=== PATIENT | female | born 1960 | race Two or more races ===

== ENCOUNTER 2024-01-29 14:43 | Outpatient (RCR) | payer BC, SELFPAY | END 2024-02-21 23:59 | disposition home or self-care (01) | LOC: SCTC 14:43 | PROVIDERS: PCP Internal Medicine; Referring Provider Internal Medicine; Visit Provider Internal Medicine Hematology & Oncology | DX: D69.6 Thrombocytopenia, unspecified (principal); D72.819 Decreased white blood cell count, unspecified; R59.0 Localized enlarged lymph nodes; N63.41 Unspecified lump in right breast, subareolar; R92.331 Mammographic heterogeneous density, right breast; K74.60 Unspecified cirrhosis of liver; I82.890 Acute embolism and thrombosis of other specified veins; I85.00 Esophageal varices without bleeding; R18.8 Other ascites; R16.1 Splenomegaly, not elsewhere classified; D73.89 Other diseases of spleen; Z91.199 Patient's noncompliance with other medical treatment and regimen due to unspecified reason | CPT/HCPCS: 99212; G0463 ==

== ENCOUNTER → 2024-02-11 | Outpatient (CLI) | payer BC, SELFPAY ==
--- NOTE | 2024-02-11 13:00 | XR_ITS ---
Examination: Breast ultrasound, unilateral, right complete Date and time of exam: February 11, 2024 1345 hours INDICATIONS: Right breast pain beginning 3 months ago Technique: Real-time powell scale ultrasonographic imaging performed right breast including all 4 quadrants as well as nipple retroareolar and axillary region. Findings: Retroareolar oval mass 3 x 3 mm Axillary lymph node enlarged with mildly irregular margins 2.6 x 2.8 cm IMPRESSION: BI-RADS Category 3: Probably benign findings Recommend 1 additional 6 month right breast sonogram follow-up
== END | disposition home or self-care (01) ==
LOC: CDIM 13:31
PROVIDERS: PCP Internal Medicine; Referring Provider Internal Medicine; Visit Provider Internal Medicine
DX: N64.4 Mastodynia (principal)
CPT/HCPCS: 76641

== ENCOUNTER 2024-02-23 13:03 | Outpatient (RCR) | payer BC, SELFPAY | END 2024-03-23 23:59 | disposition home or self-care (01) | LOC: SCTC 13:03 | PROVIDERS: PCP Internal Medicine; Referring Provider Internal Medicine; Visit Provider Nurse Practitioner Family | DX: N63.41 Unspecified lump in right breast, subareolar (principal); R59.0 Localized enlarged lymph nodes; D69.6 Thrombocytopenia, unspecified; D72.819 Decreased white blood cell count, unspecified | CPT/HCPCS: 99212; G0463 ==

== ENCOUNTER → 2024-02-24 | Outpatient (CLI) | payer BC, SELFPAY ==
--- NOTE | 2024-02-24 11:00 | XR_ITS ---
Examination: Abdomen sonogram, Limited Date and time of exam: February 24, 2024 1132 hours INDICATIONS: Diagnosis cirrhosis and hepatic encephalopathy this week Technique: Real-time powell scale transabdominal sonographic images of the upper abdomen obtained. Findings: Contracted gallbladder Gallbladder wall is thickened 0.8 cm however there is ascites Common bile duct 0.2 cm Pancreatic head 3.1 cm Liver 13.4 cm irregular contour moderate ascites Normal hepatopedal portal venous flow Patent IVC No thrombus in the splenic vein IMPRESSION: Cirrhosis Moderate ascites
--- NOTE | 2024-02-24 11:30 | XR_ITS ---
Examination: Ultrasound spleen TECHNIQUE: Multiple grayscale sonographic images Exam date and time: February 24, 2024 1139 hours INDICATIONS: 15 mm spl[address] lesion on CT abdomen January 18, 2024 FINDINGS: Spleen 17.9 cm Mild free fluid about the spleen No thrombus splenic vein no splenic lesion depicted IMPRESSION: Significant splenomegaly, no splenic lesion noted
== END | disposition home or self-care (01) ==
PROVIDERS: PCP Internal Medicine; Referring Provider Nurse Practitioner Family; Visit Provider Nurse Practitioner Family
DX: R16.1 Splenomegaly, not elsewhere classified (principal); K70.31 Alcoholic cirrhosis of liver with ascites
CPT/HCPCS: 76705

== ENCOUNTER → 2024-05-31 | Outpatient (CLI) | payer OTHER, SELFPAY ==
[2024-05-31 14:43] LABS: Basophils % (Auto) 0 % (0-2.5); Eosinophils % (Auto) 1 % (0-10); Hematocrit 25.2 % (36.0-46.0); Immature Granulocytes % (Auto) 1 % (0-0); Immature Granulocytes Auto 0.02 Thou/mm3 (0.00-0.00); Lymphocytes # (Auto) 0.9 Thou/mm3 (1.0-4.8); Lymphocytes % (Auto) 22 % (10-50); Mean Corpuscular HGB Conc 34.1 g/dl (31.0-37.0); Mean Corpuscular Hemoglobin 32.7 pg (25.0-35.0); Mean Corpuscular Volume 96 fL (80-100); Monocytes # (Auto) 0.2 Thou/mm3 (0.0-0.8); Monocytes % (Auto) 6 % (0-12); Neutrophils # (Auto) 2.8 Thou/mm3 (1.8-7.7); Neutrophils % (Auto) 70 % (37-80); Nucleated Red Blood Cell % 0 /100 WBC (0); RDW Standard Deviation 55.4 fL (36.4-46.3); Red Blood Count 2.63 Miln/mm3 (4.00-5.20)
[2024-05-31 14:47] LABS: Hemoglobin 8.6 g/dL (12.0-16.0); Platelet Count 66 Thou/mm3 (140-440)
[2024-05-31 14:58] LABS: Alanine Aminotransferase 17 U/L (10-49); Albumin/Globulin Ratio 0.8 (1.2-2.2); Alkaline Phosphatase 108 U/L (46-116); Anion Gap 10 (7-16); Aspartate Amino Transferase 36 U/L (0-34); BUN/Creatinine Ratio 16 Ratio (12-20); Bilirubin,Total 1.6 mg/dL (0.3-1.2); Blood Urea Nitrogen 37 mg/dL (9-23); Calcium (Corrected) 9.8 mg/dL (8.5-10.1); Carbon Dioxide 22.4 mMol/L (20.0-31.0); Chloride 102 mMol/L (98-107); Creatinine (Component) 2.3 mg/dL (0.6-1.3); Globulin 3.6 gm/dL (2.3-3.5); Glucose 216 mg/dL (74-106); Osmolality,Calculated 283 (275-295); Potassium 5.2 mMol/L (3.4-5.1); Sodium 134 mMol/L (136-145); Total Protein 6.6 gm/dL (5.7-8.2); eGFR 23 See Note
[2024-05-31 16:31] LABS: Slide Review Platelets confirmed
== END | disposition home or self-care (01) ==
PROVIDERS: PCP Internal Medicine; Referring Provider Specialist; Visit Provider Specialist
DX: R60.1 Generalized edema (principal)
CPT/HCPCS: 36415; 80053; 85025

== ENCOUNTER → 2024-06-03 | Outpatient (CLI) | payer OTHER, SELFPAY ==
[2024-06-03 11:47] LABS: Basophils % (Auto) 1 % (0-2.5); Eosinophils # (Auto) 0.1 Thou/mm3 (0.0-0.5); Eosinophils % (Auto) 3 % (0-10); Hematocrit 26.7 % (36.0-46.0); Hemoglobin 8.9 g/dL (12.0-16.0); Immature Granulocytes % (Auto) 0 % (0-0); Immature Granulocytes Auto 0.01 Thou/mm3 (0.00-0.00); Immature Reticulocyte Fraction 17.5 % (3.0-15.9); Lymphocytes # (Auto) 1.1 Thou/mm3 (1.0-4.8); Lymphocytes % (Auto) 22 % (10-50); Mean Corpuscular HGB Conc 33.3 g/dl (31.0-37.0); Mean Corpuscular Hemoglobin 32.6 pg (25.0-35.0); Mean Corpuscular Volume 98 fL (80-100); Monocytes # (Auto) 0.4 Thou/mm3 (0.0-0.8); Monocytes % (Auto) 9 % (0-12); Neutrophils # (Auto) 3.2 Thou/mm3 (1.8-7.7); Neutrophils % (Auto) 66 % (37-80); Nucleated Red Blood Cell % 0 /100 WBC (0); Platelet Count 81 Thou/mm3 (140-440); RDW Standard Deviation 55.8 fL (36.4-46.3); Red Blood Count 2.73 Miln/mm3 (4.00-5.20); Reticulocyte Absolute Auto 82.7 Biln/L (25.0-75.0); Reticulocyte Hgb Content 38.3 pg (28.0-35.0); White Blood Count 4.9 Thou/mm3 (3.6-11.0)
[2024-06-03 12:17] LABS: Path Review Blood Smear Sent to Pathologist
[2024-06-03 15:24] LABS: Ferritin 30 ng/mL (7.3-270.7); Iron 89 mcg/dL (50-170); Total Iron Binding Capacity 338 mcg/dL (250-425)
[2024-06-03 15:41] LABS: Folate > 24.00 ng/mL (>5.38); Vitamin B12 1029 pg/mL (211-911)
[2024-06-08 22:05] LABS: Albumin 3.4 g/dL (3.8-4.8); Alpha-1-Globulin 0.3 g/dL (0.2-0.3); Alpha-2-Globulin 0.4 g/dL (0.5-0.9); Beta-1-Globulin 0.5 g/dL (0.4-0.6); Beta-2-globulin 0.5 g/dL (0.2-0.5); Gamma Globulin 1.9 g/dL (0.8-1.7)
[2024-06-09 06:51] LABS: Protein, total, serum 6.9 g/dL (6.1-8.1)
== END | disposition home or self-care (01) ==
LOC: COPL 10:13
PROVIDERS: PCP Internal Medicine; Referring Provider Internal Medicine; Visit Provider Internal Medicine
DX: D50.0 Iron deficiency anemia secondary to blood loss (chronic) (principal)
CPT/HCPCS: 36415; 82607; 82728; 82746; 83540; 83550; 84155; 84165; 85025; 85046; 86334

== ENCOUNTER → 2024-06-11 | Outpatient (CLI) | payer OTHER, SELFPAY ==
--- NOTE | 2024-06-11 08:45 | XR_ITS ---
Examination: Abdomen sonogram, complete Date and time of exam: June 11, 2024 0844 hours INDICATIONS: Renal insufficiency on laboratory examination May 31, 2024, diagnosis cirrhosis, diagnosis significant splenomegaly. Technique: Multiple real-time grayscale transabdominal sonographic images of the abdomen have been obtained. Findings: Contracted gallbladder Gallbladder wall 0.8 cm Common bile duct 0.5 cm Pancreatic head 2.1 cm Aorta not enlarged Liver 12.4 cm irregular contour fatty infiltration Normal hepatopedal portal venous flow Patent IVC Right kidney 8.2 cm cortex 0.8 cm mild hydronephrosis Left kidney 10.5 cm cortex 1.0 cm 8mm calculus upper pole Spleen 15.2 cm IMPRESSION: Recommend repeating the gallbladder portion the study with fasting Cirrhosis Significant splenomegaly Small right kidney Bilateral renal cortical thinning Mild right hydronephrosis 8mm nonobstructing left renal calculus
== END | disposition home or self-care (01) ==
PROVIDERS: PCP Internal Medicine; Referring Provider Internal Medicine; Visit Provider Internal Medicine
DX: K74.60 Unspecified cirrhosis of liver (principal); R16.1 Splenomegaly, not elsewhere classified; N13.30 Unspecified hydronephrosis; N20.0 Calculus of kidney; N28.89 Other specified disorders of kidney and ureter
CPT/HCPCS: 76700

== ENCOUNTER → 2024-06-30 | Outpatient (CLI) | payer OTHER, SELFPAY ==
[2024-06-30 11:51] LABS: Basophils % (Auto) 1 % (0-2.5); Eosinophils # (Auto) 0.2 Thou/mm3 (0.0-0.5); Eosinophils % (Auto) 4 % (0-10); Hematocrit 27.7 % (36.0-46.0); Hemoglobin 9.6 g/dL (12.0-16.0); Immature Granulocytes % (Auto) 1 % (0-0); Immature Granulocytes Auto 0.03 Thou/mm3 (0.00-0.00); Lymphocytes # (Auto) 1.1 Thou/mm3 (1.0-4.8); Lymphocytes % (Auto) 20 % (10-50); Mean Corpuscular HGB Conc 34.7 g/dl (31.0-37.0); Mean Corpuscular Hemoglobin 36.1 pg (25.0-35.0); Mean Corpuscular Volume 104 fL (80-100); Monocytes # (Auto) 0.4 Thou/mm3 (0.0-0.8); Monocytes % (Auto) 8 % (0-12); Neutrophils # (Auto) 3.9 Thou/mm3 (1.8-7.7); Neutrophils % (Auto) 68 % (37-80); Nucleated Red Blood Cell % 0 /100 WBC (0); RDW Standard Deviation 73.1 fL (36.4-46.3); Red Blood Count 2.66 Miln/mm3 (4.00-5.20); Reticulocyte % (Auto) 5.8 % (0.5-1.5); Reticulocyte Hgb Content 39.3 pg (28.0-35.0); White Blood Count 5.7 Thou/mm3 (3.6-11.0)
[2024-06-30 11:52] LABS: Platelet Count 78 Thou/mm3 (140-440)
[2024-06-30 12:16] LABS: Alanine Aminotransferase 32 U/L (10-49); Alkaline Phosphatase 111 U/L (46-116); Anion Gap 8 (7-16); Aspartate Amino Transferase 34 U/L (0-34); BUN/Creatinine Ratio 14 Ratio (12-20); Bilirubin,Total 2.3 mg/dL (0.3-1.2); Blood Urea Nitrogen 28 mg/dL (9-23); Calcium 9.2 mg/dL (8.3-10.6); Carbon Dioxide 20.5 mMol/L (20.0-31.0); Chloride 104 mMol/L (98-107); Globulin 3.1 gm/dL (2.3-3.5); Glucose 360 mg/dL (74-106); Osmolality,Calculated 285 (275-295); Potassium 5.4 mMol/L (3.4-5.1); Sodium 132 mMol/L (136-145); Total Protein 6.1 gm/dL (5.7-8.2); eGFR 27 See Note
[2024-06-30 12:39] LABS: Slide Review Platelets confirmed
== END | disposition home or self-care (01) ==
LOC: COPL 10:33
PROVIDERS: PCP Internal Medicine; Referring Provider Internal Medicine; Visit Provider Internal Medicine
DX: E11.65 Type 2 diabetes mellitus with hyperglycemia (principal); D50.0 Iron deficiency anemia secondary to blood loss (chronic); I10 Essential (primary) hypertension
CPT/HCPCS: 36415; 80053; 85025; 85046

== ENCOUNTER 2024-07-23 22:08 | Emergency (ER) | payer OTHER, SELFPAY ==
[2024-07-23 22:26] VITALS: BP 118/69; PULSE 89; RESP 16; TEMP 36.9; O2SAT 96; BMI 23.4
--- NOTE | 2024-07-23 22:37 | EKG_ITS ---
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
--- NOTE | 2024-07-23 23:14 | PD.EDRME ---
Rapid Medical Screening Exam RME Arrival date/time: 07/23/24 22:08 63F with history of HTn and DM presents to ED with 2 hours of CP and SOB, as well as elevated BS. Chief Complaint: Shortness of Breath/Dyspnea Vital signs: Vital Signs Temperature 98.4 F 07/23/24 22:26 Pulse Rate 89 07/23/24 22:26 Respiratory Rate 16 07/23/24 22:26 Blood Pressure 118/69 07/23/24 22:26 Pulse Oximetry (%) 96 07/23/24 22:26 Oxygen Delivery Method Room Air 07/23/24 22:26
--- NOTE | 2024-07-24 00:01 | XR_ITS ---
Examination: AP chest single view Technique one AP portable upright chest single view Exam date and time: July 24, 2024, 0009 hours Comparison January 17, 2024. INDICATIONS: Hypertension chest pain shortness of breath beginning 2 hours ago. FINDINGS: Mild enlargement cardiac contour Prominent vascular congestion. Early septal edema at the lung bases IMPRESSION: Early heart failure
[2024-07-24 00:02] LABS: Base Excess, Venous -2 (-3-3); O2 Saturation, Venous 77 % (96-97); PCO2, Venous 33 mmHg (36-56); PO2, Venous 39 mmHg (15-58); pH, Venous 7.42 (7.33-7.66)
[2024-07-24 00:04] LABS: Basophils % (Auto) 1 % (0-2.5); Eosinophils # (Auto) 0.1 Thou/mm3 (0.0-0.5); Eosinophils % (Auto) 4 % (0-10); Hematocrit 26.8 % (36.0-46.0); Hemoglobin 9.5 g/dL (12.0-16.0); Immature Granulocytes % (Auto) 0 % (0-0); Immature Granulocytes Auto 0.01 Thou/mm3 (0.00-0.00); Lymphocytes # (Auto) 0.8 Thou/mm3 (1.0-4.8); Lymphocytes % (Auto) 25 % (10-50); Mean Corpuscular HGB Conc 35.4 g/dl (31.0-37.0); Mean Corpuscular Hemoglobin 34.8 pg (25.0-35.0); Mean Corpuscular Volume 98 fL (80-100); Monocytes # (Auto) 0.3 Thou/mm3 (0.0-0.8); Monocytes % (Auto) 9 % (0-12); Neutrophils # (Auto) 2.1 Thou/mm3 (1.8-7.7); Neutrophils % (Auto) 62 % (37-80); Nucleated Red Blood Cell % 0 /100 WBC (0); RDW Standard Deviation 55.8 fL (36.4-46.3); Red Blood Count 2.73 Miln/mm3 (4.00-5.20); White Blood Count 3.4 Thou/mm3 (3.6-11.0)
[2024-07-24 00:40] LABS: Platelet Count 74 Thou/mm3 (140-440)
[2024-07-24 00:41] LABS: Slide Review Platelets confirmed
[2024-07-24 00:52] LABS: Alanine Aminotransferase 28 U/L (10-49); Albumin, Serum 2.7 gm/dL (3.4-4.8); Albumin/Globulin Ratio 0.9 (1.2-2.2); Alkaline Phosphatase 211 U/L (46-116); Anion Gap 6 (7-16); Aspartate Amino Transferase 45 U/L (0-34); BUN/Creatinine Ratio 8 Ratio (12-20); Bilirubin,Total 2.1 mg/dL (0.3-1.2); Blood Urea Nitrogen 9 mg/dL (9-23); Carbon Dioxide 22.7 mMol/L (20.0-31.0); Chloride 99 mMol/L (98-107); Creatinine (Component) 1.2 mg/dL (0.6-1.3); Estimated Creatinine Clearance 35.3 mL/min (>60); Globulin 3.1 gm/dL (2.3-3.5); Magnesium 1.4 mg/dL (1.6-2.6); Osmolality,Calculated 287 (275-295); Potassium 4.3 mMol/L (3.4-5.1); Sodium 128 mMol/L (136-145); Total Protein 5.8 gm/dL (5.7-8.2); Troponin I < 0.020 ng/mL (0.0-0.045); eGFR 50 See Note
[2024-07-24 01:13] LABS: Beta Hydroxybutyrate 0.1 mmol/L (<0.6)
[2024-07-24 01:16] LABS: Glucose 674 mg/dL (74-106)
[2024-07-24] MEDS: SODIUM CHLORIDE 0.9% 1000 ML 1,000 ML 999 ML IV (01:53)
[2024-07-24] MEDS: Magnesium Sulfate 2 GM Ivpb 2 GM/50 ML BAG IV (01:54)
[2024-07-24] MEDS: INSULIN HUM REGULAR 1 UNIT/0.01 ML (PER UNIT) 5 UNIT IV ×4 (01:55→04:37)
[2024-07-24 01:56] VITALS: BP 109/68; PULSE 76; RESP 16; TEMP 36.7; O2SAT 100
--- NOTE | 2024-07-24 02:33 | PD.EDSOB ---
ED SOB =RME/HPI General Chief Complaint: Shortness of Breath/Dyspnea Stated Complaint: HIGH BS, DIFFICULTY BREATHING Arrival date/time: 07/23/24 22:08 RME / HPI RME / HPI Narrative: 07/23/24 22:08 63F with history of HTn and DM presents to ED with 2 hours of CP and SOB, as well as elevated BS. -------- Dr. Bernal?s Main ED Evaluation: 63yo female with a history of HTN, HLD, recently dx with DM presents to the ED for complaints of shortness of breath and elevated blood sugar. Patient states her blood sugar has been elevated all day today, reporting she was recently started on insulin. Patient also states she started feeling short of breath while she was laying in bed, so she came in for evaluation. Patient denies any fever, chills, cough, chest pain, dizziness or any other associated symptoms. No known allergies. Related Data Home Medications ?Medication ?Instructions ?Recorded ?Confirmed metformin 500 mg tablet 1,000 mg PO BIDAC #0 tabs 12/07/15 06/24/22 (Glucophage) simvastatin 10 mg tablet (Zocor) 10 mg PO HS #0 tabs 12/07/15 06/24/22 hydrocodone 7.5 mg-ibuprofen 200 1 tab PO TID PRN Pain 04/27/20 06/24/22 mg tablet Held on 06/24/22. Instructions: Resume on 06/25/22. insulin glargine 100 unit/mL (3 10 unit subcut QDAY 06/24/22 06/24/22 mL) subcutaneous pen (Lantus Solostar U-100 Insulin) losartan 50 mg tablet 50 mg PO QDAY 06/24/22 06/24/22 nateglinide 120 mg tablet 120 mg PO TID 06/24/22 06/24/22 temazepam 30 mg capsule 30 mg PO QHSPRN PRN Anxiety 06/24/22 06/24/22 Held on 06/24/22. Instructions: Resume on 06/25/22. Allergies Allergy/AdvReac Type Severity Reaction Status Date / Time No Known Allergies Allergy Verified 01/17/24 20:52 Review of Systems Review of Systems Systems Reviewed: All systems reviewed, normal except as documented Past Medical History Past Medical History NEUROLOGIC: Negative Neurological Disorders or Seizures CARDIAC: Positive Hypercholesterolemia and Hypertension; Negative Cardiac Disorders or Congestive Heart Failure RESPIRATORY: Negative Chronic Obstructive Pulmonary Disease (COPD) or Asthma GASTROINTESTINAL: Positive Gastrointestinal Disorders, Cirrhosis and Hemorrhoids GENITOURINARY: Negative Genitourinary Disorders or Renal Disease REPRODUCTIVE: Positive Previous Pregnancies MUSCULOSKELETAL: Positive Musculoskeletal Disorders, Arthritis and Carpal Tunnel Syndrome ENDOCRINE: Positive Endocrine Disorders and Diabetes Mellitus Type 2; Negative Diabetes Mellitus Type 1 HEMATOLOGIC: Positive Anemia; Negative Blood Disorders or Sickle Cell Disease OTHER HISTORY: Positive Hospitalization and Falls; Negative Blood Transfusions, Anesthesia Reactions or Cancer Family History FAMILY HISTORY: Negative Family Cardiac Disorders Surgical History SURGICAL: Positive Ear Surgery, of Shoulder Sx, Knee Sx and Section; Negative Cardiac Surgery Social History SMOKING STATUS: Never smoker SUBSTANCE USE: does not use ED Exam Narrative Physical exam: GENERAL APPEARANCE: alert and oriented x 4, well-developed, well-nourished, no acute distress VITALS: All vitals were reviewed and the pulse ox is 100% on room air, which is normal according to my interpretation. HEENT: Normocephalic, atraumatic; pupils equal, round, reactive to light; EOMI; mucous membranes pink, moist; oropharynx clear NECK: Supple LUNGS: CTABL; no wheezes, no rales, no rhonchi HEART: Regular rate, regular rhythm; normal S1, S2; 4-6 systolic murmur at the right upper sternal border that radiates to the carotids ABDOMEN: non distended; normal BS; soft, no tenderness, no guarding, no rebound; no masses, no organomegaly, no hernia BACK: no CVA tenderness EXTREMITIES: atraumatic; no edema NEUROLOGIC: awake; alert and oriented x4; cranial nerves II-XII grossly intact; no focal sensory or motor deficits PSYCHIATRIC: appropriate mood and affect SKIN: warm, dry, normal color; no rashes Course Course Course Narrative: CXR is ordered for determining the etiology of shortness of breath. Quality Measures none Orders Category Date Time Status Blood glucose [Bedside Blood Glucose] NOW Care 07/23/24 22:37 Active EKG (ED ONLY) *Do not use* NOW Care 07/23/24 22:37 Completed Insert IV NOW Care 07/23/24 23:13 Active EKG (ED Only) Stat Exams 07/23/24 22:37 Draft XR chest 1V portable Stat Exams 07/24/24 00:01 Taken Beta Hydroxybutyrate Stat Lab 07/24/24 01:00 Completed CBC Stat Lab 07/23/24 23:44 Completed Comprehensive Metabolic Panel Stat Lab 07/23/24 23:44 Completed Magnesium Q4H Lab 07/23/24 23:44 Completed Troponin I Stat Lab 07/23/24 23:44 Completed VBG [Venous Blood Gas] Stat Lab 07/23/24 23:44 Completed Insulin Regular Med 07/24/24 01:39 Discontinued 5 unit IV X1 ONE Insulin Regular Med 07/24/24 02:38 Discontinued 5 unit IV X1 ONE Insulin Regular Med 07/24/24 03:21 Discontinued 5 unit IV X1 ONE Magnesium Sulfate 2 GM Ivpb [Magnesium Sulfate Ivpb] Med 07/24/24 01:39 Discontinued 2 gm in 50 ml IV X1 Sodium Chloride 0.9% 1000 ml [Ns] 1,000 ml Med 07/24/24 01:39 Discontinued IV 999 mls/hr Vital Signs Vital signs: Vital Signs Temperature 98.4 F 07/23/24 22:26 Pulse Rate 89 07/23/24 22:26 Respiratory Rate 16 07/23/24 22:26 Blood Pressure 118/69 07/23/24 22:26 Pulse Oximetry (%) 96 07/23/24 22:26 Oxygen Delivery Method Room Air 07/23/24 22:26 Shortness of Breath / Dyspnea MDM Narrative MDM Narrative:: Scribe Attestation: 07/24/24 Phyllis Edwards am scribing for and in the presence of Dr. Bernal. 0238: FSBS is 470 after receiving 5 units of insulin and NS IVF. 5 additional units of insulin ordered. 0320: Repeat FSBS is 430. 5 additional units of insulin ordered. 0415: Repeat FSBS is 354. 5 additional units of insulin ordered then the patient is able to be discharged home. Patient data External records reviewed:: [facility] previous records (Per chart review, patient was seen here on 01/18/24 for dyspnea.) Clinical information provided by:: patient Social determinants that could affect healthcare access:: none Patient has the following chronic illnesses:: DM, HTN, HLD How is presenting disease/condition affected by chronic disease/condition?: caused by Evaluation data The following diagnostics were reviewed and interpreted by me:: lab results, radiology exam(s) and EKG tracing(s) Lab and/or radiology exams considered but not ordered:: none Interpretation Summary: WBC count is 3.4, HnH is 9.5/26.8, VBG is normal, Sodium is 128, Glucose is elevated at 674, Anion Gap is normal, Magnesium is 1.4, Creatinine is 2.1 (which is chronic), Troponin is normal, according to my interpretation. CXR shows a small right pleural effusion, no cardiomegaly, no infiltrates, according to my interpretation. EKG done at 2245, NSR, rate of 84, RBBB, no acute ST or T wave changes, no STEMI, according to my interpretation. Medications / Prescriptions Medications or Prescriptions considered but not ordered:: none Medication administrations:: Medication Administration History Discontinued Medications Magnesium Sulfate (Magnesium Sulfate Ivpb) 2 gm in 50 mls @ 25 mls/hr IV X1 ONE Stop: 07/24/24 03:38 Last Infusion: 07/24/24 03:13 Dose: Infused Documented By: Admin: 07/24/24 01:54 Dose: 25 mls/hr Documented By: BJ Sodium Chloride (Ns) 1,000 mls @ 999 mls/hr IV .Q1H1M ONE Stop: 07/24/24 02:39 Last Infusion: 07/24/24 02:41 Dose: Infused Documented By: Admin: 07/24/24 01:53 Dose: 999 mls/hr Documented By: BJ Insulin Human Regular (Insulin Hum Regular 1 Unit/0.01 Ml (Per Unit)) 5 unit IV X1 ONE Stop: 07/24/24 01:40 Last Admin: 07/24/24 01:55 Dose: 5 unit Documented By: BJ Co-signed By: LUIS Insulin Human Regular (Insulin Hum Regular 1 Unit/0.01 Ml (Per Unit)) 5 unit IV X1 ONE Stop: 07/24/24 02:39 Last Admin: 07/24/24 02:45 Dose: 5 unit Documented By: DINESH Co-signed By: Insulin Human Regular (Insulin Hum Regular 1 Unit/0.01 Ml (Per Unit)) 5 unit IV X1 ONE Stop: 07/24/24 03:22 Last Admin: 07/24/24 03:32 Dose: 5 unit Documented By: DINESH Co-signed By: BJ see above Consultations Consultation(s) initiated? (list below): No Diagnosis Shortness of Breath Differential Diagnosis: asthma with exacerbation, pulmonary embolism and other (hyperglycemia without ketosis, DKA, ACS, pneumonia) Most likely diagnosis given after review of the tests above:: see clinical impression below Admission Indicated Admission indicated?: not indicated Admission Request Was there a request for admission?: No Disposition Plan Disposition Plan: Discharge Discharge Attestation Discharge Attestation: The patient and all family members were given an opportunity to ask questions and understood the discharge instructions. Discharge instructions specifically effects, indications for sooner follow up or return to the emergency department, and the expected course of current diagnosis. Patient condition: Stable Discharge Plan Plan Patient Disposition: HOME (Self Care) Prescriptions/Referrals Prescriptions/Med Rec: No Action metformin [Glucophage] 500 MG tablet 1,000 mg PO BIDAC Qty: 0 simvastatin [Zocor] 10 MG tablet 10 mg PO HS Qty: 0 hydrocodone-ibuprofen 7.5-200 mg Tablet 1 tab PO TID PRN (Reason: Pain) losartan 50 mg tablet 50 mg PO QDAY Patient Comments: TAKE 1 TABLET BY MOUTH ONCE DAILY temazepam 30 mg capsule 30 mg PO QHSPRN PRN (Reason: Anxiety) Patient Comments: TAKE 1 CAPSULE BY MOUTH AT BEDTIME NEEDED nateglinide 120 mg Tablet 120 mg PO TID Rx Instructions: give before meal(s) insulin glargine [Lantus Solostar U-100 Insulin] 100 unit/mL (3 mL) insulin pen 10 unit SUBCUT QDAY Referrals: Kaylie Montes MD [Primary Care Provider] - In 1 week Problem List Clinical Impression: Hyperglycemia, Aortic heart murmur Patient/Caregiver Discharge Instructions Education Materials: ED Diabetes with High Blood Sugar Additional Instructions: Follow up with your doctor for further workup of heart murmur Print Language: Indian Stand Alone Forms: Daisha Award Info., Patient Portal Info Letter
[2024-07-24 04:00] VITALS: BP 122/71; PULSE 81; RESP 16; TEMP 36.9; O2SAT 96
== END 2024-07-24 04:41 | disposition home or self-care (01) ==
PROVIDERS: Physician Assistant; Emergency Provider Emergency Medicine; PCP Internal Medicine
DX: E11.65 Type 2 diabetes mellitus with hyperglycemia (principal); R01.1 Cardiac murmur, unspecified; I10 Essential (primary) hypertension; E11.9 Type 2 diabetes mellitus without complications; E78.5 Hyperlipidemia, unspecified
CPT/HCPCS: 36415; 71045; 80053; 82010; 82803; 83735; 84484; 84702; 85025; 93005; 96365; 99284; J1815; J3475; J7030

== ENCOUNTER → 2024-07-23 | Outpatient (CLI) | payer OTHER, SELFPAY ==
[2024-07-23 11:41] LABS: Basophils % (Auto) 1 % (0-2.5); Eosinophils # (Auto) 0.1 Thou/mm3 (0.0-0.5); Eosinophils % (Auto) 4 % (0-10); Hematocrit 29.3 % (36.0-46.0); Hemoglobin 10.3 g/dL (12.0-16.0); Immature Granulocytes % (Auto) 0 % (0-0); Immature Granulocytes Auto 0.01 Thou/mm3 (0.00-0.00); Lymphocytes % (Auto) 30 % (10-50); Mean Corpuscular HGB Conc 35.2 g/dl (31.0-37.0); Mean Corpuscular Hemoglobin 34.2 pg (25.0-35.0); Mean Corpuscular Volume 97 fL (80-100); Monocytes # (Auto) 0.3 Thou/mm3 (0.0-0.8); Monocytes % (Auto) 8 % (0-12); Neutrophils # (Auto) 1.9 Thou/mm3 (1.8-7.7); Neutrophils % (Auto) 57 % (37-80); Nucleated Red Blood Cell % 0 /100 WBC (0); Platelet Count 83 Thou/mm3 (140-440); RDW Standard Deviation 57.9 fL (36.4-46.3); Red Blood Count 3.01 Miln/mm3 (4.00-5.20); White Blood Count 3.4 Thou/mm3 (3.6-11.0)
[2024-07-23 11:52] LABS: Alanine Aminotransferase 25 U/L (10-49); Albumin, Serum 2.7 gm/dL (3.4-4.8); Albumin/Globulin Ratio 0.8 (1.2-2.2); Alkaline Phosphatase 152 U/L (46-116); Anion Gap 8 (7-16); Aspartate Amino Transferase 42 U/L (0-34); BUN/Creatinine Ratio 9 Ratio (12-20); Bilirubin,Total 2.8 mg/dL (0.3-1.2); Blood Urea Nitrogen 9 mg/dL (9-23); Calcium 8.6 mg/dL (8.3-10.6); Calcium (Corrected) 9.6 mg/dL (8.5-10.1); Chloride 104 mMol/L (98-107); Globulin 3.2 gm/dL (2.3-3.5); Glucose 300 mg/dL (74-106); Osmolality,Calculated 283 (275-295); Potassium 4.3 mMol/L (3.4-5.1); Sodium 137 mMol/L (136-145); Total Protein 5.9 gm/dL (5.7-8.2); eGFR > 60 See Note
== END | disposition home or self-care (01) ==
LOC: COPL 10:27
PROVIDERS: PCP Internal Medicine; Referring Provider Specialist; Visit Provider Specialist
DX: E11.9 Type 2 diabetes mellitus without complications (principal); R18.8 Other ascites
CPT/HCPCS: 36415; 80053; 85025

== ENCOUNTER → 2024-08-05 | Outpatient (CLI) | payer OTHER, SELFPAY ==
--- NOTE | 2024-08-05 10:30 | XR_ITS ---
Examination: CT brain head without contrast. 2-D sagittal coronal reconstructions Date and time of exam:August 05, 2024 at 1014 hours INDICATIONS: Multiple falls beginning October 2023 with injury to the head, persistent headache CTDI: vol (mGy):42.9 DLP: (mGycm):852 Technique: Multiple CT axial sections of the brain have been obtained, 5 mm slice thickness. Contrast has not been administered. 2-D sagittal, coronal reconstructions have been obtained Low dose protocols were performed. One or more of the following dose reduction techniques were used; automated exposure control, adjustment of the mA and/or KV according to patient size, use of iterative reconstruction technique. Findings: No significant ventricular enlargement. Intra-axial or extra-axial hemorrhage density is not seen. No mass effect or midline shift Basal cisterns are not remarkable. Fourth ventricle is midline. Cranial vault intact. Prior mastoid surgery on the left Impression: Negative for acute hemorrhage, mass effect or midline shift
== END | disposition home or self-care (01) ==
LOC: CCTX 09:57
PROVIDERS: PCP Internal Medicine; Referring Provider Internal Medicine; Visit Provider Internal Medicine
DX: R51.9 Headache, unspecified (principal); Z87.820 Personal history of traumatic brain injury; S09.90XS Unspecified injury of head, sequela; W19.XXXS Unspecified fall, sequela
CPT/HCPCS: 70450

== ENCOUNTER → 2024-08-10 | Outpatient (CLI) | payer OTHER, SELFPAY ==
--- NOTE | 2024-08-10 14:30 | XR_ITS ---
Examination: Breast ultrasound, unilateral, right complete Date and time of exam: August 10, 2024 1434 hours INDICATIONS: Right breast sonogram February 11, 2024 retroareolar nodule 3 x 3 mm axillary (2.6 cm with irregular margins Technique: Real-time powell scale ultrasonographic imaging performed right breast including all 4 quadrants as well as nipple retroareolar and axillary region. Findings: Retroareolar nodule with shadowing 3 x 4 mm Right axillary lymph node 25 mm IMPRESSION:: BI-RADS Category 3: Probably benign findings Recommend 1 additional 6 month right breast sonogram follow-up
== END | disposition home or self-care (01) ==
PROVIDERS: PCP Internal Medicine; Referring Provider Nurse Practitioner Family; Visit Provider Nurse Practitioner Family
DX: N63.41 Unspecified lump in right breast, subareolar (principal)
CPT/HCPCS: 76641

== ENCOUNTER 2024-08-14 07:40 | Inpatient (IN) | payer OTHER, MEDICARE, SELFPAY ==
[2024-08-14] VITALS (79 sets, daily range): BP systolic 56–122; BP diastolic 37–70; PULSE 61–90; RESP 6–96; TEMP 36.1–37; O2SAT 92–100; BMI 29.5; BMI 29.4
--- NOTE | 2024-08-14 08:10 | XR_ITS ---
Examination: AP chest single view Technique one AP portable semiupright chest single view Date and time: August 14, 2024 0839 hrs. Comparison July 24, 2024 Indications: Shortness of breath today Findings: Moderate enlargement left ventricle Prominent vascular congestion. Elevation right hemidiaphragm with subsegmental atelectasis right base No lobar pneumonia or erik pulmonary edema Impression: Prominent vascular congestion
[2024-08-14 08:37] LABS: Lactate (Lactic Acid) 3.5 mMol/L (0.4-2.0)
[2024-08-14 08:38] LABS: Base Excess, Venous -3 (-3-3); O2 Saturation, Venous 72 % (96-97); PCO2, Venous 40 mmHg (36-56); PO2, Venous 47 mmHg (15-58); pH, Venous 7.36 (7.33-7.66)
[2024-08-14] MEDS: MIDODRINE 5 MG TABLET 10 MG PO ×2 (08:39→16:03)
[2024-08-14] MEDS: SODIUM CHLORIDE 0.9% 250 ML 250 ML 999 ML IV (08:40)
[2024-08-14] MEDS: ALBUMIN HUMAN 25% IVPB 25 GM/100 ML BTL IV ×3 (08:43→18:08)
[2024-08-14 08:45] LABS: Basophils % (Auto) 0 % (0-2.5); Eosinophils # (Auto) 0.1 Thou/mm3 (0.0-0.5); Eosinophils % (Auto) 1 % (0-10); Hematocrit 27.2 % (36.0-46.0); Hemoglobin 9.5 g/dL (12.0-16.0); Immature Granulocytes % (Auto) 1 % (0-0); Immature Granulocytes Auto 0.07 Thou/mm3 (0.00-0.00); Lymphocytes # (Auto) 0.7 Thou/mm3 (1.0-4.8); Lymphocytes % (Auto) 6 % (10-50); Mean Corpuscular HGB Conc 34.9 g/dl (31.0-37.0); Mean Corpuscular Hemoglobin 33.5 pg (25.0-35.0); Mean Corpuscular Volume 96 fL (80-100); Monocytes # (Auto) 0.5 Thou/mm3 (0.0-0.8); Monocytes % (Auto) 5 % (0-12); Neutrophils # (Auto) 9.4 Thou/mm3 (1.8-7.7); Neutrophils % (Auto) 87 % (37-80); Nucleated Red Blood Cell % 0 /100 WBC (0); RDW Standard Deviation 52.7 fL (36.4-46.3); Red Blood Count 2.84 Miln/mm3 (4.00-5.20); White Blood Count 10.7 Thou/mm3 (3.6-11.0)
[2024-08-14 08:51] LABS: Platelet Count 59 Thou/mm3 (140-440)
[2024-08-14] MEDS: Norepinephrine/D5W 8mg/250ml 8 MG/250 ML BAG 6.634 MG IV ×2 (08:52→18:45)
[2024-08-14 09:00] LABS: INR 1.5 (0.9-1.3); Partial Thromboplastin Time 35.5 Seconds (22.0-36.0); Prothrombin Time 15.5 Seconds (9.0-12.2)
[2024-08-14 09:06] LABS: B-Type Natriuretic Peptide 305 pg/mL (0-100)
[2024-08-14 09:07] LABS: Ammonia 13 uMol/L (11-32)
--- NOTE | 2024-08-14 09:34 | PD.EDADULT ---
ED General RME/HPI General Chief complaint: Shortness of Breath/Dyspnea Stated complaint: SOB Time Seen by Provider: 08/14/24 08:12 Arrival date/time: 08/14/24 07:40 RME / HPI RME / HPI narrative: The patient is a 63-year-old female with significant past medical history of cryptogenic liver cirrhosis presented to ED with chief complaints of abdominal pain and swelling worsening for past couple of days. The patient has underwent multiple studies for cirrhosis, but no etiology was found. The patient reported associated dizziness and SOB, but denied any headache, sore throat, chest pain, any changes in bowel or bladder habit, fever or chills, nausea or vomiting. Related Data Home Medications ?Medication ?Instructions ?Recorded ?Confirmed metformin 500 mg tablet 1,000 mg PO BIDAC #0 tabs 12/07/15 06/24/22 (Glucophage) simvastatin 10 mg tablet (Zocor) 10 mg PO HS #0 tabs 12/07/15 06/24/22 hydrocodone 7.5 mg-ibuprofen 200 1 tab PO TID PRN Pain 04/27/20 06/24/22 mg tablet Held on 06/24/22. Instructions: Resume on 06/25/22. insulin glargine 100 unit/mL (3 10 unit subcut QDAY 06/24/22 06/24/22 mL) subcutaneous pen (Lantus Solostar U-100 Insulin) losartan 50 mg tablet 50 mg PO QDAY 06/24/22 06/24/22 nateglinide 120 mg tablet 120 mg PO TID 06/24/22 06/24/22 temazepam 30 mg capsule 30 mg PO QHSPRN PRN Anxiety 06/24/22 06/24/22 Held on 06/24/22. Instructions: Resume on 06/25/22. Allergies Allergy/AdvReac Type Severity Reaction Status Date / Time No Known Allergies Allergy Verified 08/14/24 07:43 Review of Systems Review of Systems Systems Reviewed: All systems reviewed, normal except as documented (Above) Past Medical History Past Medical History CARDIAC: Positive Hypercholesterolemia and Hypertension GASTROINTESTINAL: Positive Gastrointestinal Disorders, Cirrhosis and Hemorrhoids REPRODUCTIVE: Positive Previous Pregnancies MUSCULOSKELETAL: Positive Musculoskeletal Disorders, Arthritis and Carpal Tunnel Syndrome ENDOCRINE: Positive Endocrine Disorders and Diabetes Mellitus Type 2; Negative Diabetes Mellitus Type 1 HEMATOLOGIC: Positive Anemia; Negative Blood Disorders or Sickle Cell Disease OTHER HISTORY: Positive Hospitalization and Falls; Negative Blood Transfusions, Anesthesia Reactions or Cancer Family History FAMILY HISTORY: Negative Family Cardiac Disorders Surgical History SURGICAL: Positive Ear Surgery, of Shoulder Sx, Knee Sx and Section; Negative Cardiac Surgery Social History SMOKING STATUS: Never smoker SUBSTANCE USE: does not use ED Exam Narrative Physical exam: General: Elderly, well cooperative female, no acute distress, Alert and Oriented x 3 HEENT: Dry mucous membranes, oropharynx clear Neck: Supple, No masses, No JVD CVS: S1S2 Regular rate and rhythm, No murmurs, rubs or gallops Lungs: Clear to auscultation with no accessory use, no wheeze no rhonchi Abd: Firm, distended in all quadrants, +BS, difficult to appreciate organomegaly due to distension Ext: Anasarca, warm and well perfused Skin: No rash Psych: Appropriate mood and affect Course Quality Measures none Orders Category Date Time Status [employer] NOW Care 08/14/24 08:08 Active EKG (ED ONLY) *Do not use* NOW Care 08/14/24 07:53 Completed EKG (ED Only) Stat Exams 08/14/24 07:53 Ordered US paracentesis abd w/image Stat Exams 08/14/24 10:30 Ordered XR chest 1V portable Stat Exams 08/14/24 08:10 Completed A1C [Glycohemoglobin w (eAG)] Stat Lab 08/14/24 08:25 Completed Ammonia Stat Lab 08/14/24 08:25 Completed B-Type Natriuretic Peptide Stat Lab 08/14/24 08:25 Completed Blood Culture (Lab) Stat Lab 08/14/24 09:00 Received CBC Stat Lab 08/14/24 08:25 Completed Comprehensive Metabolic Panel Stat Lab 08/14/24 08:25 Completed Drug Screen,Urine Stat Lab 08/14/24 08:08 Ordered Lactic Acid [Lactate (Lactic Acid)] Routine Lab 08/14/24 10:56 Results Lactic Acid [Lactate (Lactic Acid)] Stat Lab 08/14/24 08:25 Completed Lipase Stat Lab 08/14/24 08:25 Completed Magnesium Stat Lab 08/14/24 08:25 Completed Partial Thromboplastin Time Stat Lab 08/14/24 08:25 Completed Procalcitonin Stat Lab 08/14/24 08:25 Completed Prothrombin Time with INR Stat Lab 08/14/24 08:25 Completed Troponin I Stat Lab 08/14/24 08:25 Completed Urinalysis Stat Lab 08/14/24 08:08 Ordered VBG [Venous Blood Gas] Stat Lab 08/14/24 08:25 Completed Albumin Human 25% Ivpb [Albuminar-25 Ivpb] Med 08/14/24 08:26 Discontinued 25 gm in 100 ml IV X1 Albumin Human 25% Ivpb [Albuminar-25 Ivpb] Med 08/14/24 11:00 Discontinued 25 gm in 100 ml IV X1 INSULIN LISPRO (AdmeLOG) [HumaLOG] Med 08/14/24 12:10 Discontinued 10 unit SC X1 ONE INSULIN LISPRO (AdmeLOG) [HumaLOG] Med 08/14/24 09:56 Discontinued 7 unit SC X1 ONE Insulin Glargine Inj [Lantus Inj] Med 08/14/24 12:10 Discontinued 10 unit SC X1 ONE Magnesium Sulfate 4 GM Ivpb [Magnesium Sulfate Ivpb] Med 08/14/24 10:33 Active 4 gm in 50 ml IV X1 Midodrine [Proamatine] Med 08/14/24 08:30 Active 10 mg PO TID Norepinephrine/D5W 8mg/250ml [Levophed in D5W 8mg/250ml Med 08/14/24 08:25 Active ] 8 mg in 250 ml IV 0.05 mcg/kg/min Sodium Chloride 0.9% 250 ml [Ns] 250 ml Med 08/14/24 08:26 Discontinued IV 999 mls/hr Sodium Chloride 0.9% 250 ml [Ns] 250 ml Med 08/14/24 09:58 Discontinued IV 999 mls/hr Sodium Chloride 0.9% 500 ml [Ns] 500 ml Med 08/14/24 12:09 Discontinued IV 999 mls/hr Vital Signs Vital signs: Vital Signs Temperature 97.0 F 08/14/24 07:53 Pulse Rate 64 08/14/24 07:53 Respiratory Rate 20 08/14/24 07:53 Blood Pressure 56/37 L 08/14/24 07:53 Pulse Oximetry (%) 97 08/14/24 07:53 Oxygen Delivery Method Room Air 08/14/24 07:53 Critical Care Time Critical Care Time Critical Care Time: Yes Total Critical Care Time (min.): 45 Attestation: The high probability of sudden, clinically significant deterioration in the patient?s condition required the highest level of my preparedness to intervene urgently. The services I provided to this patient were to treat and/or prevent clinically significant deterioration. Services included the following: chart data review, reviewing nursing notes and/or old charts, documentation time, gift consultant collaboration regarding findings and treatment options, medication orders and management, direct patient care, vital sign assessments and ordering, interpreting and reviewing diagnostic studies and lab tests. Aggregate critical care time includes only time during which I was engaged in work directly related to the patient?s care, as described above, whether at bedside or elsewhere in the Emergency Department. It did not include time spent performing other reported procedures or the services of residents, students, nurses or physician assistants. The patient's management plan was discussed with my attending physician MD Donn Holloway MD, PGY2 Discharge Plan Plan Patient Disposition: Admit Acute Care w/in Hospital Prescriptions/Referrals Prescriptions/Med Rec: No Action metformin [Glucophage] 500 MG tablet 1,000 mg PO BIDAC Qty: 0 simvastatin [Zocor] 10 MG tablet 10 mg PO HS Qty: 0 hydrocodone-ibuprofen 7.5-200 mg Tablet 1 tab PO TID PRN (Reason: Pain) losartan 50 mg tablet 50 mg PO QDAY Patient Comments: TAKE 1 TABLET BY MOUTH ONCE DAILY temazepam 30 mg capsule 30 mg PO QHSPRN PRN (Reason: Anxiety) Patient Comments: TAKE 1 CAPSULE BY MOUTH AT BEDTIME NEEDED nateglinide 120 mg Tablet 120 mg PO TID Rx Instructions: give before meal(s) insulin glargine [Lantus Solostar U-100 Insulin] 100 unit/mL (3 mL) insulin pen 10 unit SUBCUT QDAY Referrals: Kaylie Montes MD [Primary Care Provider] - In 1 week Problem List Clinical Impression: Ascites of liver, Acute hypotension, Hyperglycemia due to type 2 diabetes mellitus Patient/Caregiver Discharge Instructions Print Language: Serbian Stand Alone Forms: Daisha Award Info., Patient Portal Info Letter MDM Narrative MDM hospital course: The patient is a 63-year-old female with significant past medical history of cryptogenic liver cirrhosis presented to ED with chief complaints of abdominal pain and swelling worsening for past couple of days. The patient has underwent multiple studies for cirrhosis, but no etiology was found. The patient reported associated dizziness and SOB, but denied any headache, sore throat, chest pain, any changes in bowel or bladder habit, fever or chills, nausea or vomiting. Her initial vitals were BP 56/37, pulse 64, saturating 97% on RA. Labs revealed Hb 9.5, Plt 59, PT 15.5, INR 1.5, Na 128, Cl 97, Cr 2.3, GFR 23, BS 635, A1C 9.1, LA 3.5 that trended down to 2.3, MG 1.3, BNP 305, Albumin 2.2 and procal 1.36. CXR revealed prominent vascular congestion. The patient was started on levofed drip, Bolus NS 750cc IV, started on Midodrin 10mg TID, Magnesium sulphate 4g IV, Insulin lispro 7 units and 10 units with Lantus 10 Units SC. The patient also received 50g of albumin IV. After patient's vitals improved, she patient was planned to be admitted to the floors. Medication Administration(s) Medication Administration History Norepinephrine/Dextrose (Levophed In D5w 8mg/250ml) 8 mg in 250 mls @ 6.634 mls/hr IV .Q24H PRN; Protocol PRN Reason: PER PROTOCOL Stop: 09/13/24 08:24 Last Titration: 08/14/24 13:11 Dose: 0 mcg/kg/min, 0 mls/hr Documented By: Titration: 08/14/24 12:50 Dose: 0.01 mcg/kg/min, 1.327 mls/hr Documented By: Titration: 08/14/24 12:45 Dose: 0.03 mcg/kg/min, 3.98 mls/hr Documented By: Titration: 08/14/24 12:18 Dose: 0.03 mcg/kg/min, 3.98 mls/hr Documented By: Titration: 08/14/24 11:57 Dose: 0.05 mcg/kg/min, 6.634 mls/hr Documented By: Titration: 08/14/24 11:49 Dose: 0.05 mcg/kg/min, 6.634 mls/hr Documented By: Titration: 08/14/24 11:45 Dose: 0.07 mcg/kg/min, 9.287 mls/hr Documented By: Titration: 08/14/24 11:30 Dose: 0.07 mcg/kg/min, 9.287 mls/hr Documented By: Titration: 08/14/24 11:15 Dose: 0.07 mcg/kg/min, 9.287 mls/hr Documented By: Titration: 08/14/24 11:00 Dose: 0.07 mcg/kg/min, 9.287 mls/hr Documented By: Titration: 08/14/24 10:45 Dose: 0.07 mcg/kg/min, 9.287 mls/hr Documented By: Titration: 08/14/24 10:30 Dose: 0.07 mcg/kg/min, 9.287 mls/hr Documented By: Titration: 08/14/24 10:15 Dose: 0.07 mcg/kg/min, 9.287 mls/hr Documented By: Titration: 08/14/24 10:00 Dose: 0.07 mcg/kg/min, 9.287 mls/hr Documented By: Titration: 08/14/24 09:45 Dose: 0.07 mcg/kg/min, 9.287 mls/hr Documented By: Titration: 08/14/24 09:30 Dose: 0.07 mcg/kg/min, 9.287 mls/hr Documented By: Titration: 08/14/24 09:15 Dose: 0.07 mcg/kg/min, 9.287 mls/hr Documented By: Titration: 08/14/24 09:05 Dose: 0.07 mcg/kg/min, 9.287 mls/hr Documented By: Titration: 08/14/24 09:00 Dose: 0.07 mcg/kg/min, 9.287 mls/hr Documented By: Admin: 08/14/24 08:52 Dose: 0.05 mcg/kg/min, 6.634 mls/hr Documented By: FC Magnesium Sulfate (Magnesium Sulfate Ivpb) 4 gm in 50 mls @ 12.5 mls/hr IV X1 ONE Stop: 08/14/24 14:32 Last Admin: 08/14/24 11:25 Dose: 12.5 mls/hr Documented By: YENIFER Midodrine (Midodrine 5 Mg Tablet) 10 mg PO TID WAYNE Stop: 09/13/24 08:29 Last Admin: 08/14/24 08:39 Dose: 10 mg Documented By: FC Discontinued Medications Albumin Human (Albuminar-25 Ivpb) 25 gm in 100 mls @ 100 mls/hr IV X1 ONE Stop: 08/14/24 09:25 Last Infusion: 08/14/24 09:47 Dose: Infused Documented By: Admin: 08/14/24 08:43 Dose: 100 mls/hr Documented By: YENIFER Sodium Chloride (Ns) 250 mls @ 999 mls/hr IV .Q16M ONE Stop: 08/14/24 08:41 Last Infusion: 08/14/24 09:23 Dose: Infused Documented By: Admin: 08/14/24 08:40 Dose: 999 mls/hr Documented By: YENIFER Sodium Chloride (Ns) 250 mls @ 999 mls/hr IV .Q16M ONE Stop: 08/14/24 10:13 Last Admin: 08/14/24 10:09 Dose: Not Given Documented By: YENIFER Non-Admin Reason: Discontinued Albumin Human (Albuminar-25 Ivpb) 25 gm in 100 mls @ 100 mls/hr IV X1 ONE Stop: 08/14/24 11:59 Last Infusion: 08/14/24 11:18 Dose: Infused Documented By: Admin: 08/14/24 10:16 Dose: 100 mls/hr Documented By: YENIFER Sodium Chloride (Ns) 500 mls @ 999 mls/hr IV .Q31M ONE Stop: 08/14/24 12:39 Last Infusion: 08/14/24 13:35 Dose: Infused Documented By: Admin: 08/14/24 12:25 Dose: 999 mls/hr Documented By: YENIFER Insulin Glargine (Insulin Glargine (Lantus) 5 Unit/0.05 Ml (Per 5 Units)) 10 unit SC X1 ONE Stop: 08/14/24 12:11 Last Admin: 08/14/24 12:29 Dose: 10 unit Documented By: YENIFER Co-signed By: DB Insulin Human Lispro (Insulin Lispro (Admelog) 1 Unit/0.01 Ml Unit) 7 unit SC X1 ONE Stop: 08/14/24 09:57 Last Admin: 08/14/24 10:14 Dose: 7 unit Documented By: YENIFER Co-signed By: LF Insulin Human Lispro (Insulin Lispro (Admelog) 1 Unit/0.01 Ml Unit) 10 unit SC X1 ONE Stop: 08/14/24 12:11 Last Admin: 08/14/24 12:28 Dose: 10 unit Documented By: YENIFER Co-signed By: SHAE Consultations/Discussions re: Management Consult #1: Date/time: 08/14/24 2:06 pm Physician, specialty, service, details: Hospitalist team Dr. Angela MD was consulted regarding admission. The patient's HPI, PE, Labs and imaging including management plan was discussed. Dr. Miller accepted the patient. Diagnosis Differential diagnosis: Hypotension 2/2 cirrhosis, Generalized anasarca, Ascites
[2024-08-14 09:39] LABS: Glucose Estimated Average 214 mg/dL (80-131); Hemoglobin A1C 9.1 % Hgb (4.8-6.0)
[2024-08-14 09:41] LABS: Alanine Aminotransferase 16 U/L (10-49); Albumin, Serum 2.2 gm/dL (3.4-4.8); Albumin/Globulin Ratio 0.7 (1.2-2.2); Alkaline Phosphatase 185 U/L (46-116); Anion Gap 8 (7-16); Aspartate Amino Transferase 26 U/L (0-34); BUN/Creatinine Ratio 10 Ratio (12-20); Bilirubin,Total 2.9 mg/dL (0.3-1.2); Blood Urea Nitrogen 23 mg/dL (9-23); Calcium 7.5 mg/dL (8.3-10.6); Calcium (Corrected) 8.9 mg/dL (8.5-10.1); Carbon Dioxide 22.7 mMol/L (20.0-31.0); Chloride 97 mMol/L (98-107); Creatinine (Component) 2.3 mg/dL (0.6-1.3); Estimated Creatinine Clearance 21.9 mL/min (>60); Globulin 3.1 gm/dL (2.3-3.5); Lipase 25 U/L (12-53); Magnesium 1.3 mg/dL (1.6-2.6); Osmolality,Calculated 290 (275-295); Potassium 4.2 mMol/L (3.4-5.1); Procalcitonin 1.36 ng/ml (0.0-0.49); Sodium 128 mMol/L (136-145); Total Protein 5.3 gm/dL (5.7-8.2); Troponin I < 0.020 ng/mL (0.0-0.045); eGFR 23 See Note
[2024-08-14 09:46] LABS: Glucose 635 mg/dL (74-106)
[2024-08-14 09:56] LABS: Slide Review Platelets confirmed
[2024-08-14] MEDS: INSULIN LISPRO (AdmeLOG) 1 UNIT/0.01 ML UNIT 7 UNIT SC (10:14)
[2024-08-14 11:00] LABS: Lactate (Lactic Acid) 2.3 mMol/L (0.4-2.0)
[2024-08-14] MEDS: Magnesium Sulfate 4 GM Ivpb 4 GM/50 ML BAG IV (11:25)
[2024-08-14 11:32] LABS: Reflex Lactate? Y
[2024-08-14] MEDS: SODIUM CHLORIDE 0.9% 500 ML 500 ML 999 ML IV (12:25)
[2024-08-14] MEDS: INSULIN LISPRO (AdmeLOG) 1 UNIT/0.01 ML UNIT 10 UNIT SC (12:28)
[2024-08-14] MEDS: INSULIN GLARGINE (Lantus) 5 UNIT/0.05 ML (PER 5 UNITS) 10 UNIT SC (12:29)
[2024-08-14 14:10] LABS: Reflex Lactate? Y
[2024-08-14 15:24] LABS: Base Excess -2 (-3-3); HCO3 22 mEq/L (20-26); PCO2 35 mmHg (32.0-48.0); PO2 70 mmHg (83-108)
[2024-08-14 15:25] LABS: Allen Test Not Performed; Inspired Oxygen, FIO2 21 %; O2 Saturation 95 % (91-98); Puncture Site Right Radial
--- NOTE | 2024-08-14 15:42 | ESHP_ITS ---
Documentation for date of: 08/14/24 HPI History of Present Illness Chief complaint: anasarca History of present illness: 63-year-old female with past medical history of diabetes, cryptogenic cirrhosis presented to the ED due to shortness of breath. Patient started feeling shortness of breath since 08/11/2024 that has progressively been getting worse and is associated with palpitations. Patient also states having bilateral leg swelling onset of about 2 months ago that has progressively worsened anasarcic. Patient also noted to have decrased po intake for the past few weeks. Patient arrived to the ER blood pressure of 56/37, HR 64, and was requiring Levophed via peripheral lines and was given IV fluids boluses and has current MAP above 65. Denies fever, chills, chest pain, nausea, vomiting, recent travel, sick contacts. Patient will be admitted for anasarca ED course: ED vitals: BP 56/37, HR 64, RR 20, saturating 97% on room air ED labs: Normocytic anemia, thrombocytopenia, coagulopathic, hyponatremic, hypochloremic, creatinine 2.3, glucose 635, A1c 9.1, lactic acid 2.3 and trending up, magnesium 1.3, T. bili 2.9, alk phos 185, BNP 305, procalcitonin 1.36 ED Tx: Midodrine, 250 mL NS bolus x 2, albumin 25 x 3, NS bolus 500 mL, lispro 7 units, Levophed, lispro 10 units x 1 glargine 10 units x 1 PMHx: As above SX Hx: C-sections Social Hx: Denies cigarette use, denies alcohol use, denies illicit substances FH X: Unknown Review of Systems Review of Systems Systems Reviewed: All systems reviewed, normal except as documented Narrative Review of Systems: All 12 systems reviewed and normal unless otherwise specified in the HPI Exam Vital Signs Temp Pulse Resp BP Pulse Ox O2 Del Method 97.9 F 68 20 105/57 L 97 Room Air 08/14/24 13:00 08/14/24 14:00 08/14/24 14:00 08/14/24 14:00 08/14/24 14:00 08/14/24 14:00 Narrative Exam Physical Exam GENERAL: NAD, AAOx3, frail, anasarca HEENT: Moist mucosa. Eyes open, symmetrical, & clear CARDIO: Heart RRR, no obvious murmurs PULM: coughing/dyspnea CTA B/L, no R/W/R GI: Abdomen distended, no pain on palpation. BS+ SKIN/MSK/EXT: Bilateral lower extremity edema up to upper abdomen, no pain on palpation. Pedal pulses present B/L NEURO: AAOx3, no focal neuro deficits, able to move all 4 extremities Results: Labs 08/15/24 04:41 08/15/24 04:41 Labs: Short CBC 08/14/24 Range/Units 08:25 WBC 10.7 (3.6-11.0) Thou/mm3 Hgb 9.5 L (12.0-16.0) g/dL Hct 27.2 L (36.0-46.0) % Plt Count 59 L D (140-440) Thou/mm3 BMP 08/14/24 08:25 Sodium 128 L Potassium 4.2 Chloride 97 L Carbon Dioxide 22.7 BUN 23 Creatinine 2.3 H Glucose 635 H* Calcium 7.5 L Cardiac Enzymes 08/14/24 Range/Units 08:25 Troponin I < 0.020 (0.0-0.045) ng/mL Liver Function 08/14/24 Range/Units 08:25 Total Bilirubin 2.9 H (0.3-1.2) mg/dL AST 26 (0-34) U/L ALT 16 (10-49) U/L Alkaline Phosphatase 185 H (46-116) U/L Albumin 2.2 L (3.4-4.8) gm/dL ABG Interpretation ABG results: 08/14/24 08/14/24 08:25 15:20 ABG pH 7.40 ABG pCO2 35 ABG pO2 70 L ABG HCO3 22 ABG O2 Saturation 95 ABG Base Excess -2 VBG pH 7.36 VBG pCO2 40 VBG pO2 47 VBG Base Excess -3 Quality Measures Quality Measures none Advance care planning discussed with:: patient Medications Home Medications and Allergies Home Medications ?Medication ?Instructions ?Recorded ?Confirmed ?Type metformin 500 mg tablet 1,000 mg PO BIDAC #0 tabs 08/14/24 History (Glucophage) simvastatin 10 mg tablet (Zocor) 10 mg PO HS #0 tabs 0 12/07/15 08/14/24 History hydrocodone 7.5 mg-ibuprofen 200 1 tab PO TID PRN Pain 04/27/20 08/14/24 History mg tablet insulin glargine 100 unit/mL (3 10 unit subcut QDAY 06/24/22 History mL) subcutaneous pen (Lantus Solostar U-100 Insulin) losartan 50 mg tablet 50 mg PO QDAY 06/24/2208/14 History nateglinide 120 mg tablet 120 mg PO TID 06/24/2208/14 History temazepam 30 mg capsule 30 mg PO QHSPRN PRN Anxiety 06/24/22 08/14/24 History ferrous sulfate 325 mg (65 mg 325 mg PO BID 08/14/24 0 08/15/24 History iron) tablet (FeroSul) folic acid 1 mg tablet 1 mg PO QDAY 08/14/24 History furosemide 40 mg tablet 40 mg PO .AM 08/14/24 History insulin glargine-yfgn 100 unit/mL 10 unit subcut DAILY 08/14/24 08/15/24 History (3 mL) subcutaneous pen (Semglee (insulin glargine-yfgn) Pen) spironolactone 50 mg tablet 50 mg PO .am 08/14/2407/23 History Allergies Allergy/AdvReac Type Severity Reaction Status Date / Time No Known Allergies Allergy Verified 08/14/24 07:43 Visit Medications Acetaminophen (Acetaminophen 325 Mg Tablet) 650 mg PO Q6H PRN PRN Reason: Fever >101.5 Stop: 09/13/24 14:53 Dextrose (Dextrose 50%-Water Inj 50 Ml Syringe) 25 ml IV Q15MIN PRN PRN Reason: BG 50-70 responsive npo pt Stop: 09/13/24 15:03 Dextrose (Dextrose 50%-Water Inj 50 Ml Syringe) 50 ml IV Q15MIN PRN PRN Reason: BG <50 OR BG <70 & pt unresponsive Stop: 09/13/24 15:03 Glucagon (Glucagon Inj 1 Mg Vial) 1 mg IM Q15MIN PRN PRN Reason: BG <70, and no IV access Octreotide Acetate 1,000 mcg/ (Sodium Chloride) 102 mls @ 5.1 mls/hr IV .Q20H [facility]; Protocol Stop: 08/19/24 14:54 Ceftriaxone Sodium/Dextrose (Rocephin/D5w 1gm Iv Premix) 1 gm in 50 mls @ 100 mls/hr IV QDAY [facility] Stop: 08/21/24 14:56 Octreotide Acetate 1,000 mcg/ (Sodium Chloride) 102 mls @ 5.1 mls/hr IV .Q20H [facility]; Protocol Stop: 09/13/24 15:14 Insulin Human Lispro (Insulin Lispro (Admelog) 1 Unit/0.01 Ml Unit) 0 unit SC AC WAYNE; Protocol Stop: 09/13/24 16:59 Lactulose (Lactulose Syrup 20 Gm/30 Ml Udc) 20 gm PO QDAY [facility]; Protocol Stop: 09/14/24 08:59 Midodrine (Midodrine 5 Mg Tablet) 10 mg PO TID [facility] Stop: 09/13/24 08:29 Last Admin: 08/14/24 08:39 Dose: 10 mg Ondansetron HCl (Ondansetron Inj 2 Mg/Ml Inj 2 Ml) 4 mg IVP Q6H PRN; Protocol PRN Reason: NAUSEA OR VOMITING Stop: 09/13/24 14:53 Pantoprazole Sodium (Pantoprazole Inj 40 Mg Vial) 40 mg IVP BID [facility] Stop: 09/13/24 20:59 Discontinued Medications Norepinephrine/Dextrose (Levophed In D5w 8mg/250ml) 8 mg in 250 mls @ 6.634 mls/hr IV .Q24H PRN; Protocol PRN Reason: PER PROTOCOL Stop: 09/13/24 08:24 Last Titration: 08/14/24 13:11 Dose: 0 mcg/kg/min, 0 mls/hr Albumin Human (Albuminar-25 Ivpb) 25 gm in 100 mls @ 100 mls/hr IV X1 ONE Stop: 08/14/24 09:25 Last Infusion: 08/14/24 09:47 Dose: Infused Sodium Chloride (Ns) 250 mls @ 999 mls/hr IV .Q16M ONE Stop: 08/14/24 08:41 Last Infusion: 08/14/24 09:23 Dose: Infused Sodium Chloride (Ns) 250 mls @ 999 mls/hr IV .Q16M ONE Stop: 08/14/24 10:13 Last Admin: 08/14/24 10:09 Dose: Not Given Albumin Human (Albuminar-25 Ivpb) 25 gm in 100 mls @ 100 mls/hr IV X1 ONE Stop: 08/14/24 11:59 Last Infusion: 08/14/24 11:18 Dose: Infused Magnesium Sulfate (Magnesium Sulfate Ivpb) 4 gm in 50 mls @ 12.5 mls/hr IV X1 ONE Stop: 08/14/24 14:32 Last Admin: 08/14/24 11:25 Dose: 12.5 mls/hr Sodium Chloride (Ns) 500 mls @ 999 mls/hr IV .Q31M ONE Stop: 08/14/24 12:39 Last Infusion: 08/14/24 13:35 Dose: Infused Insulin Glargine (Insulin Glargine (Lantus) 5 Unit/0.05 Ml (Per 5 Units)) 10 unit SC X1 ONE Stop: 08/14/24 12:11 Last Admin: 08/14/24 12:29 Dose: 10 unit Insulin Human Lispro (Insulin Lispro (Admelog) 1 Unit/0.01 Ml Unit) 7 unit SC X1 ONE Stop: 08/14/24 09:57 Last Admin: 08/14/24 10:14 Dose: 7 unit Insulin Human Lispro (Insulin Lispro (Admelog) 1 Unit/0.01 Ml Unit) 10 unit SC X1 ONE Stop: 08/14/24 12:11 Last Admin: 08/14/24 12:28 Dose: 10 unit Insulin Human Lispro (Insulin Lispro (Admelog) 1 Unit/0.01 Ml Unit) 0 unit SC AC [facility]; Protocol Stop: 09/13/24 16:59 Assessment & Plan Plan 63-year-old female with past medical history of diabetes, cryptogenic cirrhosis presented to the ED due to shortness of breath. Patient started feeling shortness of breath since 08/11/2024 that has progressively been getting worse and is associated with palpitations. Patient also states having bilateral leg swelling onset of about 2 months ago that has progressively worsened anasarcic. Patient arrived to the ER blood pressure of 56/37, HR 64, and was requiring Levophed via peripheral lines and was given IV fluids boluses and has current MAP above 65. Denies fever, chills, chest pain, nausea, vomiting, recent travel, sick contacts. Patient will be admitted for anasarca #Anasarca #Decompensated liver disease #Cryptogenic liver cirrhosis #Elevated T. bili #?Hepatorenal syndrome Cecilia discriminant function: 19, good prognosis no need for steroid medication Patient has anasarca has been going on for about 2 months progressively getting worse does not take diuretics at home ammonia wnl was given IVFs and albumin ? pending Ultrasound-guided paracentesis ? Octreotide ? PPI ? Midodrine 10mg TID ? diuresis on hold due to unstable blood pressure at this time ? I's&O's #Acute Kidney injury #? Hepatorenal syndrome likely in the setting of dehydration vs liver disease causing IGNACIO patient did note to have decreased po intake for few days/weeks Creatinine 2.3, eGFR 23 ? was given IVF's ? Avoid nephrotoxins ? Renally dose medications ? FENa/Urea, urine microscopy if considering intrarenal etiology ? PVR, renal ultrasound for hydronpehrosis if possible postrenal etiology #Lactic acidosis Received IV fluids ? Continue to trend #Diabetes mellitus type 2 Last A1c: 9.1 Glucose on admission ~600 ? SSI ? Hypoglycemia protocol in place Health Maintenance: Disposition: Telemetry, pending ultrasound-guided paracentesis Fluids: None Feeding: Low-sodium Thrombo prophylaxis: SCDs Gastric Ulcer prophylaxis: Pantoprazole CODE STATUS: Full code Case discussed with my attending Dr. Kimberly Michelle MD PGY-1 Attending Provider Attestation/Addendum I, Maria T Harris DO, attest that I was physically present for the lerma portions of the service and evaluated the patient with the resident and I reviewed and discussed the case with the resident and agree with the resident's findings and plans of care as documented above Patient is a 63-year-old female with past medical history of diabetes and cryptogenic cirrhosis who was brought to the ED due to worsening shortness of breath. Patient was eating breakfast this morning when she complained of worsening shortness of breath. However, patient's at bedside and income tax manager states that she appears to be getting more swollen in the past 3 weeks and has had worsening orthopnea. Patient reports some pain in her abdomen that is very distended due to her anasarca and ascites. She has never had a paracentesis in the past. She follows up with Dr. Pérez outpatient for her cryptogenic cirrhosis. She endorses using her furosemide daily. Patient has had decreased p.o. intake due to worsening abdominal distention. On presentation, patient was hypotensive and was given albumin and started on Levophed. Blood pressure improved and subsequently weaned off Levophed and placed on midodrine. Patient received 2 L IV fluid bolus due to hypotension. Blood glucose was also noted to be in the 600s with manage patient received 17 units of lispro and 10 units of glargine. Patient uses Lantus 10 units daily at home. Patient has normocytic anemia that appears to be a baseline. INR is 1.5. ABG appears to be appropriate on room air. She has hyponatremia likely secondary to her cirrhosis and acute kidney injury with creatinine of 2.3 from 1.2. Patient likely has hepatorenal syndrome. Will admit patient to telemetry for further workup and medical management of acute decompensated cirrhosis. Will start patient on octreotide and continue with midodrine. Case was discussed with jelly filter tender as patient has a low threshold for transfer to ICU given low BP. Patient will have paracentesis tomorrow. Will start her on Rocephin for both SBP prophylaxis and UTI. Will follow-up cultures. Patient denies any fever or chills otherwise. Patient does have 3+ pitting edema in bilateral lower extremities. Will treat hepatorenal syndrome before considering diuresis to avoid intravascular volume depletion.
[2024-08-14] MEDS: cefTRIAXone/D5w 1gm IV premix 1 GM/50 ML BAG IV (16:02)
[2024-08-14 16:23] LABS: Lactate (Lactic Acid) 2.3 mMol/L (0.4-2.0)
[2024-08-14] MEDS: OCTREOTIDE ACET INJ 1,000 MCG in SODIUM CHLORIDE 0.9% 100 ML 5.1 MCG IV (16:29)
[2024-08-14 17:27] LABS: Reflex Lactate? Y
--- NOTE | 2024-08-14 18:09 | EVENTNT_ITS ---
Documentation for date of: 08/14/24 Event Note Event Note: Approximately 6 PM rapid response was called for hypotension BP 85/47 [MAP 56]. Upon arrival patient was alert and oriented x 3, answering questions appropriately and spontaneous respirations. On exam patient had anasarca and a distended abdomen. After 2 blood pressure rechecks, spontaneously improved to 88/50 [MAP 60]. Impression: 1. Hypotension 2. Possible hepatorenal syndrome Plan: ?Increase midodrine to 15 Mg p.o. 3 times daily ? Albumin 25 g IV x 1 ? Continue octreotide infusion ? For urgent paracentesis - Consult to distillery miller for possible IV vasopressors and closer monitoring due to hemodynamic instability. Plan of care discussed with Attending Dr. Kvng Barahona MD PGY 1 Disclaimer: This note was dictated by speech recognition. Minor errors in radiology transcriptionist may be present due to voice recognition software.
--- NOTE | 2024-08-14 18:22 | PD.RESCONSUL ---
HPI Data of Consult Requesting Physician: Maria T Harris DO Admitting Provider: Maria T Harris DO Attending Provider: Maria T Harris DO Primary Care Provider: Kayile Montes MD Consult Narrative Reason for consult: Hypotension History of present illness: 63-year-old female with past medical history of diabetes, cryptogenic cirrhosis presented to the ED due to shortness of breath. Patient started feeling shortness of breath since 08/11/2024 that has progressively been getting worse and is associated with palpitations. Patient also states having bilateral leg swelling onset of about 2 months ago that has progressively worsened anasarcic. Patient also noted to have decrased po intake for the past few weeks. Patient arrived to the ER blood pressure of 56/37, HR 64, and was requiring Levophed via peripheral lines and was given IV fluids boluses and has current MAP above 65. Denies fever, chills, chest pain, nausea, vomiting, recent travel, sick contacts. Patient will be admitted for anasarca ED course: ED vitals: BP 56/37, HR 64, RR 20, saturating 97% on room air ED labs: Normocytic anemia, thrombocytopenia, coagulopathic, hyponatremic, hypochloremic, creatinine 2.3, glucose 635, A1c 9.1, lactic acid 2.3 and trending up, magnesium 1.3, T. bili 2.9, alk phos 185, BNP 305, procalcitonin 1.36 ED Tx: Midodrine, 250 mL NS bolus x 2, albumin 25 x 3, NS bolus 500 mL, lispro 7 units, Levophed, lispro 10 units x 1 glargine 10 units x 1 16:00: Patient had an BLOOD COLLECTOR called due to hypotension with a MAP in the 50s. Patient had received a total of 750 cc of fluid in the ER with 50 g of albumin. Despite this patient had a MAP of 50 when coming up to telemetry. Patient at bedside did not have any dizziness, chest pain or palpitation. Patient did have an lactic acid that down trended from 3.0-2.3. Patient was brought over to the ICU for pressor support and further management of her decompensated liver cirrhosis. Her abdomen is large but nontender with ascitic fluid wave cc:: cc: Maria T Harris DO Review of Systems Review of Systems Systems Reviewed: All systems reviewed, normal except as documented Exam Vital Signs Temp Pulse Resp BP Pulse Ox O2 Del Method 97.3 F 66 24 H 85/47 L 95 Room Air 08/14/24 18:15 08/14/24 18:15 08/14/24 18:15 08/14/24 18:15 08/14/24 18:15 08/14/24 18:15 Narrative Exam Constitutional: Well nourished and in no acute distress Head: Normocephalic/Atraumatic Eyes: PERRL , no conjunctival injection , left eyelid is droopy compared to the right ENMT: Moist Mucous Membranes, No trauma or injury. Neck: Supple to palpation, No JVD CVS: RRR, S1 and S2 present, no murmurs, rubs or gallops . RESP: CTAB, no SOB, no rales, rhonchi or wheezing. No respiratory Distress GI: Large but soft. Very distended but nontender. Positive fluid wave on percussion. MSK: Full range of motion, No trauma or deformities or masses. Skin: Warm to touch, Dry. No rashes or lesions. 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 Sensation grossly intact. Psych: (AAO) x3 . Appropriate mood and affect. Results Labs 08/16/24 08:17 08/16/24 04:42 Labs: Short CBC 08/14/24 Range/Units 08:25 WBC 10.7 (3.6-11.0) Thou/mm3 Hgb 9.5 L (12.0-16.0) g/dL Hct 27.2 L (36.0-46.0) % Plt Count 59 L D (140-440) Thou/mm3 BMP 08/14/24 08:25 Sodium 128 L Potassium 4.2 Chloride 97 L Carbon Dioxide 22.7 BUN 23 Creatinine 2.3 H Glucose 635 H* Calcium 7.5 L Cardiac Enzymes 08/14/24 Range/Units 08:25 Troponin I < 0.020 (0.0-0.045) ng/mL Liver Function 08/14/24 Range/Units 08:25 Total Bilirubin 2.9 H (0.3-1.2) mg/dL AST 26 (0-34) U/L ALT 16 (10-49) U/L Alkaline Phosphatase 185 H (46-116) U/L Albumin 2.2 L (3.4-4.8) gm/dL ABG Interpretation ABG results: 08/14/24 08/14/24 08:25 15:20 ABG pH 7.40 ABG pCO2 35 ABG pO2 70 L ABG HCO3 22 ABG O2 Saturation 95 ABG Base Excess -2 VBG pH 7.36 VBG pCO2 40 VBG pO2 47 VBG Base Excess -3 Quality Measures Quality Measures none Advance care planning discussed with:: patient Medications Home Medications and Allergies Home Medications ?Medication ?Instructions ?Recorded ?Confirmed ?Type metformin 500 mg tablet 1,000 mg PO BIDAC #0 tabs 12/07/15 08/14/24 History (Glucophage) simvastatin 10 mg tablet (Zocor) 10 mg PO HS #0 tabs 12/07/15 08/14/24 History hydrocodone 7.5 mg-ibuprofen 200 1 tab PO TID PRN Pain 04/27/20 08/14/24 History mg tablet insulin glargine 100 unit/mL (3 10 unit subcut QDAY 06/24/22 06/24/22 History mL) subcutaneous pen (Lantus Solostar U-100 Insulin) losartan 50 mg tablet 50 mg PO QDAY 06/24/22 08/14/24 History nateglinide 120 mg tablet 120 mg PO TID 06/24/22 08/14/24 History temazepam 30 mg capsule 30 mg PO QHSPRN PRN Anxiety 06/24/22 08/14/24 History ferrous sulfate 325 mg (65 mg 325 mg PO BID 08/14/24 08/15/24 History iron) tablet (FeroSul) folic acid 1 mg tablet 1 mg PO QDAY 08/14/24 08/14/24 History furosemide 40 mg tablet 40 mg PO .AM 08/14/24 08/15/24 History insulin glargine-yfgn 100 unit/mL 10 unit subcut DAILY 08/14/24 08/15/24 History (3 mL) subcutaneous pen (Semglee (insulin glargine-yfgn) Pen) spironolactone 50 mg tablet 50 mg PO .am 08/14/24 08/15/24 History Allergies Allergy/AdvReac Type Severity Reaction Status Date / Time No Known Allergies Allergy Verified 08/14/24 07:43 Visit Medications Acetaminophen (Acetaminophen 325 Mg Tablet) 650 mg PO Q6H PRN PRN Reason: Fever >101.5 Stop: 09/13/24 14:53 Dextrose (Dextrose 50%-Water Inj 50 Ml Syringe) 25 ml IV Q15MIN PRN PRN Reason: BG 50-70 responsive npo pt Stop: 09/13/24 15:03 Dextrose (Dextrose 50%-Water Inj 50 Ml Syringe) 50 ml IV Q15MIN PRN PRN Reason: BG <50 OR BG <70 & pt unresponsive Stop: 09/13/24 15:03 Glucagon (Glucagon Inj 1 Mg Vial) 1 mg IM Q15MIN PRN PRN Reason: BG <70, and no IV access Octreotide Acetate 1,000 mcg/ (Sodium Chloride) 102 mls @ 5.1 mls/hr IV .Q20H WAYNE; Protocol Stop: 08/15/24 10:53 Last Admin: 08/14/24 16:29 Dose: 50 mcg/hr, 5.1 mls/hr Ceftriaxone Sodium/Dextrose (Rocephin/D5w 1gm Iv Premix) 1 gm in 50 mls @ 100 mls/hr IV QDAY WAYNE Stop: 08/21/24 14:56 Last Infusion: 08/14/24 16:35 Dose: Infused Octreotide Acetate 1,000 mcg/ (Sodium Chloride) 102 mls @ 5.1 mls/hr IV .Q20H WAYNE; Protocol Stop: 09/14/24 11:59 Albumin Human (Albuminar-25 Ivpb) 25 gm in 100 mls @ 100 mls/hr IV X1 ONE Stop: 08/14/24 19:01 Last Admin: 08/14/24 18:08 Dose: 100 mls/hr Norepinephrine/Dextrose (Levophed In D5w 8mg/250ml) 8 mg in 250 mls @ 6.634 mls/hr IV .Q24H PRN; Protocol PRN Reason: PER PROTOCOL Stop: 09/13/24 18:19 Insulin Human Lispro (Insulin Lispro (Admelog) 1 Unit/0.01 Ml Unit) 0 unit SC AC WAYNE; Protocol Stop: 09/13/24 16:59 Lactulose (Lactulose Syrup 20 Gm/30 Ml Udc) 20 gm PO QDAY WAYNE; Protocol Stop: 09/14/24 08:59 Midodrine (Midodrine 5 Mg Tablet) 15 mg PO TID WAYNE Stop: 09/13/24 21:59 Ondansetron HCl (Ondansetron Inj 2 Mg/Ml Inj 2 Ml) 4 mg IVP Q6H PRN; Protocol PRN Reason: NAUSEA OR VOMITING Stop: 09/13/24 14:53 Pantoprazole Sodium (Pantoprazole Inj 40 Mg Vial) 40 mg IVP BID WAYNE Stop: 09/13/24 20:59 Discontinued Medications Norepinephrine/Dextrose (Levophed In D5w 8mg/250ml) 8 mg in 250 mls @ 6.634 mls/hr IV .Q24H PRN; Protocol PRN Reason: PER PROTOCOL Stop: 09/13/24 08:24 Last Titration: 08/14/24 13:11 Dose: 0 mcg/kg/min, 0 mls/hr Albumin Human (Albuminar-25 Ivpb) 25 gm in 100 mls @ 100 mls/hr IV X1 ONE Stop: 08/14/24 09:25 Last Infusion: 08/14/24 09:47 Dose: Infused Sodium Chloride (Ns) 250 mls @ 999 mls/hr IV .Q16M ONE Stop: 08/14/24 08:41 Last Infusion: 08/14/24 09:23 Dose: Infused Sodium Chloride (Ns) 250 mls @ 999 mls/hr IV .Q16M ONE Stop: 08/14/24 10:13 Last Admin: 08/14/24 10:09 Dose: Not Given Albumin Human (Albuminar-25 Ivpb) 25 gm in 100 mls @ 100 mls/hr IV X1 ONE Stop: 08/14/24 11:59 Last Infusion: 08/14/24 11:18 Dose: Infused Magnesium Sulfate (Magnesium Sulfate Ivpb) 4 gm in 50 mls @ 12.5 mls/hr IV X1 ONE Stop: 08/14/24 14:32 Last Infusion: 08/14/24 15:30 Dose: Infused Sodium Chloride (Ns) 500 mls @ 999 mls/hr IV .Q31M ONE Stop: 08/14/24 12:39 Last Infusion: 08/14/24 13:35 Dose: Infused Insulin Glargine (Insulin Glargine (Lantus) 5 Unit/0.05 Ml (Per 5 Units)) 10 unit SC X1 ONE Stop: 08/14/24 12:11 Last Admin: 08/14/24 12:29 Dose: 10 unit Insulin Human Lispro (Insulin Lispro (Admelog) 1 Unit/0.01 Ml Unit) 7 unit SC X1 ONE Stop: 08/14/24 09:57 Last Admin: 08/14/24 10:14 Dose: 7 unit Insulin Human Lispro (Insulin Lispro (Admelog) 1 Unit/0.01 Ml Unit) 10 unit SC X1 ONE Stop: 08/14/24 12:11 Last Admin: 08/14/24 12:28 Dose: 10 unit Insulin Human Lispro (Insulin Lispro (Admelog) 1 Unit/0.01 Ml Unit) 0 unit SC AC WAYNE; Protocol Stop: 09/13/24 16:59 Midodrine (Midodrine 5 Mg Tablet) 10 mg PO TID WAYNE Stop: 09/13/24 08:29 Last Admin: 08/14/24 16:03 Dose: 10 mg Assessment & Plan Plan 63-year-old female with past medical history of diabetes, cryptogenic cirrhosis brought over to the unit for further management of her shock Neuro Stable Alert and oriented x 3. baseline ammonia level is 13 CVS Shock Most likely distributive from decompensated liver cirrhosis leading to third spacing Will perform a bedside ultrasound Patient will likely need paracentesis to relieve intra-abdominal pressure and allow for better venous return to the heart Resp Stable Patient is saturating well on room air Chest x-ray showed vascular congestion Will continue to monitor and will likely need to diurese GI Decompensated liver cirrhosis Child Marshall score of 10 placing the patient at exceed class with life expectancy 1 to 3 years and an abdominal surgery perioperative mortality of 82% Patient's MELD?NA score?24 for the corrected sodium of 137 due to hyperglycemia placing the patient had a 14 to 15% 90-day mortality Patient has ascites on presentation and needs to be Tapped in the a.m. Patient is on SBP prophylaxis with Rocephin Patient is on octreotide drip Will start patient on spironolactone and Lasix once renal function improves Renal IGNACIO Prerenal in the setting of hepatorenal syndrome Patient's baseline creatinine is 1.0 when she presented with a creatinine of 2.3 Started on octreotide drip, will titrate down as tolerated and as we come down from midodrine and Levophed support Lactic acidosis?improved Likely in the setting of shock and hypoperfusion Patient presented with a lactic acid of 3.5 that peaked to down to 1.8 Endocrine Type 2 diabetes Patient takes insulin at home and she presented with a glucose of 635 with an A1c of 9.1 Patient received 10 units of Lantus on admission and was started on sliding scale ID/Skin Stable Patient is on Rocephin for SBP prophylaxis Hematology #Anemia acute on chronic Likely due to anemia of chronic disease as patient has cirrhosis. Hemoglobin 9.5 No signs of active bleed at this time Will hold chemical prophylaxis at this time as patient is coagulopathic with a low platelet count Follow-up on iron studies Thrombocytopenia In the setting of decompensated liver failure Platelets were 59 No signs of active bleeding Will continue to trend Hospital Maintenance: FEN: N.p.o., octreotide drip, referral to registered dietitian DVT PPx: SCDs GI PPx: Protonix IV twice daily IV lines: Peripheral IVs Pugh: YES Code Status: Full code Dispo: Patient will remain in the ICU for further management of her shock I discussed patient's care with pulp mill operator, Dr Jez Saba MD, PGY3
[2024-08-14] MEDS: INSULIN LISPRO (AdmeLOG) 1 UNIT/0.01 ML UNIT SC (18:25)
[2024-08-14 18:42] LABS: Lactic Acid, 3 HR 1.8 mMol/L (0.4-2.0)
[2024-08-14 19:22] LABS: Reflex Lactate? Y
[2024-08-14] MEDS: ACETAMINOPHEN 325 MG TABLET 650 MG PO (19:47)
[2024-08-14] MEDS: MIDODRINE 5 MG TABLET 15 MG PO (21:22)
[2024-08-14] MEDS: PANTOPRAZOLE INJ 40 MG VIAL IVP (21:23)
[2024-08-14 21:59] LABS: Ferritin 128 ng/mL (7.3-270.7); Iron 23 mcg/dL (50-170); Percent Iron Saturation 12 % (20-55); Total Iron Binding Capacity 179 mcg/dL (250-425); Unsaturated Iron Binding 156 (225-295)
[2024-08-15] VITALS (110 sets, daily range): BP systolic 79–161; BP diastolic 47–99; PULSE 58–133; RESP 0–94; TEMP 36.4–36.8; O2SAT 90–99; BMI 34.0
[2024-08-15 00:23] LABS: Collection Type, Urine Clean Catch
[2024-08-15 00:55] LABS: Amphetamine/Methamp Scrn,U Negative (Negative); Barbiturate Screen,Urine Negative (Negative); Benzodiazepines Screen,Urine Negative (Negative); Benzoylecgonine Screen, Ur Negative (Negative); Fentanyl Screen,Urine Negative (Negative); Opiate Screen,Urine Negative (Negative); THC Screen,Urine Negative (Negative)
[2024-08-15 01:08] LABS: Bacteria,Urine 4+; Bilirubin,Urine Negative (Negative); Blood,Urine 1+ (Negative); Calcium Oxalate Crystals,Urine 1+; Clarity,Urine Turbid (Clear/Hazy); Color,Urine Drk-Yellow (Lt Yel-Yel); Glucose, Urine 3+ (Negative); Hyaline Casts,Urine 1 /hpf (0-1); Ketones,Urine Trace (Negative); Leukocyte Esterase,Urine Positive (Negative); Nitrite,Urine Negative (Negative); Protein,Urine Trace (Neg - Trace); RBC,Urine 20 /hpf (0-3); Specific Gravity,Urine 1.023 (1.001-1.035); Squamous Epithelial Cell,Urine 17 /hpf (0-5); Transitional Epi Cells,Urine 2 /hpf (0-5); WBC,Urine 26 /hpf (0-5)
[2024-08-15 05:38] LABS: Basophils # (Auto) 0.1 Thou/mm3 (0.0-0.2); Basophils % (Auto) 0 % (0-2.5); Eosinophils # (Auto) 0.5 Thou/mm3 (0.0-0.5); Eosinophils % (Auto) 3 % (0-10); Hematocrit 23.8 % (36.0-46.0); Immature Granulocytes % (Auto) 1 % (0-0); Immature Granulocytes Auto 0.16 Thou/mm3 (0.00-0.00); Lymphocytes # (Auto) 2.3 Thou/mm3 (1.0-4.8); Lymphocytes % (Auto) 12 % (10-50); Mean Corpuscular HGB Conc 36.1 g/dl (31.0-37.0); Mean Corpuscular Hemoglobin 34.1 pg (25.0-35.0); Mean Corpuscular Volume 94 fL (80-100); Monocytes # (Auto) 1.2 Thou/mm3 (0.0-0.8); Monocytes % (Auto) 6 % (0-12); Neutrophils # (Auto) 14.5 Thou/mm3 (1.8-7.7); Neutrophils % (Auto) 78 % (37-80); Nucleated Red Blood Cell % 0 /100 WBC (0); Platelet Count 86 Thou/mm3 (140-440); RDW Standard Deviation 54.4 fL (36.4-46.3); Red Blood Count 2.52 Miln/mm3 (4.00-5.20); White Blood Count 18.7 Thou/mm3 (3.6-11.0)
[2024-08-15 05:41] LABS: Glucose Estimated Average 209 mg/dL (80-131); Hemoglobin A1C 8.9 % Hgb (4.8-6.0)
[2024-08-15 05:47] LABS: Hemoglobin 8.6 g/dL (12.0-16.0)
[2024-08-15] MEDS: MIDODRINE 5 MG TABLET 15 MG PO ×4 (05:51→21:23)
[2024-08-15 06:03] LABS: Alanine Aminotransferase 12 U/L (10-49); Albumin, Serum 2.7 gm/dL (3.4-4.8); Albumin/Globulin Ratio 1.1 (1.2-2.2); Alkaline Phosphatase 102 U/L (46-116); Anion Gap 9 (7-16); Aspartate Amino Transferase 30 U/L (0-34); BUN/Creatinine Ratio 9 Ratio (12-20); Bilirubin,Total 2.3 mg/dL (0.3-1.2); Blood Urea Nitrogen 22 mg/dL (9-23); Calcium 7.8 mg/dL (8.3-10.6); Calcium (Corrected) 8.8 mg/dL (8.5-10.1); Carbon Dioxide 22.2 mMol/L (20.0-31.0); Chloride 96 mMol/L (98-107); Creatinine (Component) 2.5 mg/dL (0.6-1.3); Estimated Creatinine Clearance 20.2 mL/min (>60); Globulin 2.5 gm/dL (2.3-3.5); Glucose 206 mg/dL (74-106); Magnesium 1.7 mg/dL (1.6-2.6); Osmolality,Calculated 264 (275-295); Phosphorous 3.5 mg/dL (2.4-5.1); Potassium 4.4 mMol/L (3.4-5.1); Sodium 127 mMol/L (136-145); Total Protein 5.2 gm/dL (5.7-8.2); eGFR 21 See Note
[2024-08-15] MEDS: INSULIN LISPRO (AdmeLOG) 1 UNIT/0.01 ML UNIT SC ×4 (07:28→21:16)
[2024-08-15] MEDS: Magnesium Sulfate 2 GM Ivpb 2 GM/50 ML BAG IV (07:29)
[2024-08-15] MEDS: ALBUMIN HUMAN 25% IVPB 25 GM/100 ML BTL IV ×6 (07:29→23:41)
[2024-08-15] MEDS: FERROUS SULF 325 MG TABLET PO (07:31)
[2024-08-15] MEDS: PANTOPRAZOLE INJ 40 MG VIAL IVP ×2 (08:50→20:03)
[2024-08-15] MEDS: cefTRIAXone/D5w 1gm IV premix 1 GM/50 ML BAG IV (08:50)
[2024-08-15] MEDS: LACTULOSE SYRUP 20 GM/30 ML UDC PO (08:53)
--- NOTE | 2024-08-15 09:44 | ECHO_ITS ---
Transthoracic Echo Report Ht (in): 61 Wt (lb): 180 Exam Location: Echo Lab Status: Inpatient Social Work Manager: Yahaira Silva Indications: Procedure Performed: BP: 115 / 62 HR: 63 Technical Quality: Technically difficult study MEASUREMENTS (Male / Female) Normal Values 2D ECHO LV Diastolic Diameter PLAX 4.8 cm 4.2 - 5.9 / 3.9 - 5.3 cm LV Systolic Diameter PLAX 3.1 cm IVS Diastolic Thickness 1.0 cm 0.6 - 1.0 / 0.6 - 0.9 cm LVPW Diastolic Thickness 1.0 cm 0.6 - 1.0 / 0.6 - 0.9 cm LV Relative Wall Thickness 0.4 LVOT Diameter 1.7 cm Aortic Root Diameter 3.1 cm LA Systolic Diameter LX 3.3 cm 3.0 - 4.0 / 2.7 - 3.8 cm LA Volume Index 39.0 cm?/m? 16 - 28 cm?/m? M-MODE Aortic Root Diameter MM 2.3 cm LA Systolic Diameter MM 4.4 cm LA Ao Ratio MM 1.9 AV Cusp Separation MM 0.9 cm DOPPLER AV Peak Velocity 276.7 cm/s AV Peak Gradient 30.6 mmHg AV Mean Gradient 18.0 mmHg AV Velocity Time Integral 77.0 cm LVOT Peak Velocity 126.0 cm/s LVOT Peak Gradient 6.4 mmHg LVOT Velocity Time Integral 35.1 cm LVOT Cardiac Index 2625.7 cm?/min?m? AV Area Cont Eq vti 1.0 cm? AV Area Cont Eq pk 1.0 cm? MV Area PHT 3.1 cm? MR Peak Velocity 411.5 cm/s MR Peak Gradient 67.7 mmHg Mitral E Point Velocity 99.0 cm/s Mitral A Point Velocity 78.6 cm/s Mitral E to A Ratio 1.3 LV E' Lateral Velocity 7.0 cm/s Mitral E to LV E' Lateral Ratio 14.2 LV E' Septal Velocity 6.4 cm/s Mitral E to LV E' Septal Ratio 15.4 TR Peak Velocity 303.7 cm/s TR Peak Gradient 36.9 mmHg PV Peak Velocity 136.0 cm/s PV Peak Gradient 7.4 mmHg FINDINGS Left Ventricle Normal left ventricular size, wall thickness, systolic function with no obvious regional wall motion abnormalities. Normal left ventricular diastolic filling pattern for age. The ejection fraction is visually estimated at 65%. Right Ventricle The right ventricle is normal in size and systolic function. Left Atrium Moderately increased left atrial volume 39 mL/m?. Right Atrium The right atrium is normal by two-dimensional imaging, color flow and Doppler imaging with no structural abnormalities, no thrombus formation present. Atrial Septum The interatrial septum appears normal with no evidence of a shunt. Aorta The aorta is normal by two-dimensional, color flow and Doppler interrogation. Mitral Valve The mitral valve is normal by two-dimensional, color flow and Doppler interrogation. [id number] mitral regurgitation. Aortic Valve Moderate thickening of the aortic valve leaflets. Mild to moderate aortic valve stenosis, mean gradient 18 mmHg, JORGE 1 cm?. Tricuspid Valve The tricuspid valve is normal by two-dimensional, color flow and Doppler interrogation. There is mild tricuspid valve regurgitation. Pulmonic Valve Mild pulmonic valve regurgitation. Vessels Inferior vena cava not well visualized. Pericardium The pericardium is normal by two-dimensional imaging. There is no significant pericardial effusion. CONCLUSIONS Indication: Murmur Normal LVsize and wall thickness. Estimated EF 65%. The RV is normal in size and systolic function. Moderately increased LA volume 39 mL/m?. [id number] MR. Moderate thickening of the AV. Mild to moderate , mean gradient 18 mmHg, JORGE 1 cm?. There is mild TR and PI. Inferior vena cava not well visualized. Mara French (Electronically Signed) Final Date: 16 Aug 2024 12:12
--- NOTE | 2024-08-15 10:35 | PD.RESPRO ---
Documentation for date of: 08/15/24 Subjective Subjective Interval history: 63-year-old female with past medical history of diabetes mellitus type II and cryptogenic decompensated cirrhosis w/ ascites presented to the ED due to shortness of breath. Patient started feeling shortness of breath since 08/11/2024 that has progressively been getting worse and is associated with palpitations. Patient also states having bilateral leg swelling onset of about 2 months ago that has progressively worsened anasarcic. Patient also noted to have decrased po intake for the past few weeks. Patient arrived to the ER blood pressure of 56/37, HR 64, and was requiring Levophed via peripheral lines and was given IV fluids boluses and has current MAP above 65. Denies fever, chills, chest pain, nausea, vomiting, recent travel, sick contacts. Patient will be admitted for anasarca ED course: ED vitals: BP 56/37, HR 64, RR 20, saturating 97% on room air ED labs: Normocytic anemia, thrombocytopenia, coagulopathic, hyponatremic, hypochloremic, creatinine 2.3, glucose 635, A1c 9.1, lactic acid 2.3 and trending up, magnesium 1.3, T. bili 2.9, alk phos 185, BNP 305, procalcitonin 1.36 ED Tx: Midodrine, 250 mL NS bolus x 2, albumin 25 x 3, NS bolus 500 mL, lispro 7 units, Levophed, lispro 10 units x 1 glargine 10 units x 1 16:00: Patient had an PATHOLOGY [employer]OR[employer]ER called due to hypotension with a MAP in the 50s. Patient had received a total of 750 cc of fluid in the ER with 50 g of albumin. Despite this patient had a MAP of 50 when coming up to telemetry. Patient at bedside did not have any dizziness, chest pain or palpitation. Patient did have an lactic acid that down trended from 3.0-2.3. Patient was brought over to the ICU for pressor support and further management of her decompensated liver cirrhosis. Her abdomen is large but nontender with ascitic fluid wave 08/15/2024: No overnight events. No Urine output. Levophed 0.01, Octerotride and albumin Qday. Denied chest pain or shortness of breath. Vijaya follows with Dr. Pérez as outpatient. Vijaya stated she has had cirrhosis for several years. Patient intially stated this was her second paracentesis, but after speaking to patient's , stated she has never had a paracentesis. Per , patient developed cirrhosis shortly after about 40 years ago. Patient unsure if she has ever been checked for hepatitis. Denied autoimmune conditions. Vijaya does not take Lactulose and denied propranol or no spironoloactone-lasix. Lowere pedal edema note, patient has never had this happen before. Plan for paracentsis. Exam Vital Signs Temp Pulse Resp BP Pulse Ox O2 Del Method 98.3 F 59 L 33 H 85/48 L 93 L Room Air 08/15/24 08:00 08/15/24 10:25 08/15/24 09:30 08/15/24 10:25 08/15/24 09:30 08/15/24 08:00 Narrative Exam General Appearance: Alert & Oriented X3, increased abdominal distention, who is lying in bed in no acute distress. NO skin lesion noted. HEENT: Skull symmetrical and atraumatic. Conjunctivae pink and moist. Oral mucosa appears dry. Pupils equal, round, reactive to light and accommodation (PERRL). External ear without lesion or discharge. left irritated sclera noted, free of dischage. Cardio: Normal Rate and Rhythm with S1 and S2 heart sounds. No murmurs or extra heart sounds auscultated. No bruits on carotid auscultation. 3+ peripheral edema. Lungs: Symmetric expansion but reduced secondary to abdominal distention. Chest and back non-tender. Breath sounds vesicular without crackles, wheezing or rhonchi Abdomen: Non-tender, Distended, hypo-Reactive Bowel Sounds, No abdominal hernias. No spider angioma noted. Positive fluid wave. Neuro: Alert, cooperative, oriented to person, place, and time. Speech clear. CN grossly intact. Upper motor strength 5/5 and Lower motor strength 5/5. Sensation intact. Lines: peripheral and Pugh Objective Labs 08/16/24 08:17 08/16/24 04:42 Labs: Laboratory Results - last 24 hr 08/14/24 08/14/24 08/14/24 00:05 10:56 14:04 WBC RBC Hgb Hct MCV MCH MCHC RDW Std Deviation Plt Count Neut % (Auto) Lymph % (Auto) Stevens % (Auto) Eos % (Auto) Baso % (Auto) Neut # (Auto) Lymph # (Auto) Stevens # (Auto) Eos # (Auto) Baso # (Auto) Immature Gran # (Auto) Absolute Nucleated RBC Immature Gran % Nucleated RBC % Puncture Site ABG pH ABG pCO2 ABG pO2 ABG HCO3 ABG O2 Saturation ABG Base Excess FiO2 Sodium Potassium Chloride Carbon Dioxide Anion Gap BUN Creatinine Estim Creat Clear Calc eGFR BUN/Creatinine Ratio Glucose Estimated Ave Glu mg/dL Hemoglobin A1c Calculated Osmolality Lactic Acid 2.3 H 3.0 H Calcium Corrected Calcium Phosphorus Magnesium Iron TIBC Iron Saturation Unsat Iron Binding Ferritin Total Bilirubin AST ALT Alkaline Phosphatase Total Protein Albumin Globulin Albumin/Globulin Ratio Beta-Hydroxybutyrate/Acetoacetate Ur Collection Type Clean Catch Urine Color Drk-Yellow A Urine Clarity Turbid A Urine pH 5.0 Ur Specific [place] 1.023 Urine Protein Trace Urine Glucose (UA) 3+ A Urine Ketones Trace Urine Blood 1+ A Urine Nitrite Negative Urine Bilirubin Negative Urine Urobilinogen (Auto) 2.0 Ur Leukocyte Esterase Positive Urine RBC 20 H Urine WBC 26 H Ur Squamous Epith Cells 17 H Ur Transition Epith Cell 2 Calcium Oxalate Crystal 1+ A Urine Bacteria 4+ A Hyaline Casts 1 Urine Opiates Screen Negative Urine Fentanyl Screen Negative Ur Barbiturates Screen Negative U Amphetamin/Meth Scrn Negative U Benzodiazepines Scrn Negative U Cocaine Metab Screen Negative U Marijuana (THC) Screen Negative 08/14/24 08/14/24 08/14/24 15:20 15:22 16:17 WBC RBC Hgb Hct MCV MCH MCHC RDW Std Deviation Plt Count Neut % (Auto) Lymph % (Auto) Stevens % (Auto) Eos % (Auto) Baso % (Auto) Neut # (Auto) Lymph # (Auto) Stevens # (Auto) Eos # (Auto) Baso # (Auto) Immature Gran # (Auto) Absolute Nucleated RBC Immature Gran % Nucleated RBC % Puncture Site Right Radial ABG pH 7.40 ABG pCO2 35 ABG pO2 70 L ABG HCO3 22 ABG O2 Saturation 95 ABG Base Excess -2 FiO2 21 Sodium Potassium Chloride Carbon Dioxide Anion Gap BUN Creatinine Estim Creat Clear Calc eGFR BUN/Creatinine Ratio Glucose Estimated Ave Glu mg/dL Hemoglobin A1c Calculated Osmolality Lactic Acid 2.3 H Calcium Corrected Calcium Phosphorus Magnesium Iron 23 L TIBC 179 L Iron Saturation 12 L Unsat Iron Binding 156 L Ferritin 128 Total Bilirubin AST ALT Alkaline Phosphatase Total Protein Albumin Globulin Albumin/Globulin Ratio Beta-Hydroxybutyrate/Acetoacetate 0.0 Ur Collection Type Urine Color Urine Clarity Urine pH Ur Specific [place] Urine Protein Urine Glucose (UA) Urine Ketones Urine Blood Urine Nitrite Urine Bilirubin Urine Urobilinogen (Auto) Ur Leukocyte Esterase Urine RBC Urine WBC Ur Squamous Epith Cells Ur Transition Epith Cell Calcium Oxalate Crystal Urine Bacteria Hyaline Casts Urine Opiates Screen Urine Fentanyl Screen Ur Barbiturates Screen U Amphetamin/Meth Scrn U Benzodiazepines Scrn U Cocaine Metab Screen U Marijuana (THC) Screen 08/14/24 08/15/24 18:12 04:41 WBC 18.7 H D RBC 2.52 L Hgb 8.6 L Hct 23.8 L MCV 94 MCH 34.1 MCHC 36.1 RDW Std Deviation 54.4 H Plt Count 86 L D Neut % (Auto) 78 Lymph % (Auto) 12 Stevens % (Auto) 6 Eos % (Auto) 3 Baso % (Auto) 0 Neut # (Auto) 14.5 H Lymph # (Auto) 2.3 Stevens # (Auto) 1.2 H Eos # (Auto) 0.5 Baso # (Auto) 0.1 Immature Gran # (Auto) 0.16 H Absolute Nucleated RBC 0.00 Immature Gran % 1 H Nucleated RBC % 0 Puncture Site ABG pH ABG pCO2 ABG pO2 ABG HCO3 ABG O2 Saturation ABG Base Excess FiO2 Sodium 127 L Potassium 4.4 Chloride 96 L Carbon Dioxide 22.2 Anion Gap 9 BUN 22 Creatinine 2.5 H Estim Creat Clear Calc 20.2 L eGFR 21 L BUN/Creatinine Ratio 9 L Glucose [address] Glu mg/dL 209 H Hemoglobin A1c 8.9 H Calculated Osmolality 264 L Lactic Acid 1.8 Calcium 7.8 L Corrected Calcium 8.8 Phosphorus 3.5 Magnesium 1.7 Iron TIBC Iron Saturation Unsat Iron Binding Ferritin Total Bilirubin 2.3 H D AST 30 ALT 12 Alkaline Phosphatase 102 D Total Protein 5.2 L Albumin 2.7 L D Globulin 2.5 Albumin/Globulin Ratio 1.1 L Beta-Hydroxybutyrate/Acetoacetate Ur Collection Type Urine Color Urine Clarity Urine pH Ur Specific [place] Urine Protein Urine Glucose (UA) Urine Ketones Urine Blood Urine Nitrite Urine Bilirubin Urine Urobilinogen (Auto) Ur Leukocyte Esterase Urine RBC Urine WBC Ur Squamous Epith Cells Ur Transition Epith Cell Calcium Oxalate Crystal Urine Bacteria Hyaline Casts Urine Opiates Screen Urine Fentanyl Screen Ur Barbiturates Screen U Amphetamin/Meth Scrn U Benzodiazepines Scrn U Cocaine Metab Screen U Marijuana (THC) Screen ABG Interpretation ABG results: 08/14/24 08/14/24 08:25 15:20 ABG pH 7.40 ABG pCO2 35 ABG pO2 70 L ABG HCO3 22 ABG O2 Saturation 95 ABG Base Excess -2 VBG pH 7.36 VBG pCO2 40 VBG pO2 47 VBG Base Excess -3 Quality Measures Quality Measures none Advance care planning discussed with:: patient Assessment & Plan Assessment Current Active Medications: Generic Name Dose Route Start Last Admin Trade Name Freq PRN Reason Stop Dose Admin Acetaminophen 650 mg 08/14/24 19:35 08/14/24 19:47 Acetaminophen 325 Mg Tablet PO 09/13/24 14:53 650 mg Q6H PRN Administration Fever >100.4 or pain Dextrose 25 ml 08/14/24 15:04 Dextrose 50%-Water Inj 50 Ml Syringe IV 09/13/24 15:03 Q15MIN PRN BG 50-70 responsive npo pt Dextrose 50 ml 08/14/24 15:04 Dextrose 50%-Water Inj 50 Ml Syringe IV 09/13/24 15:03 Q15MIN PRN BG <50 OR BG <70 & pt unresponsive Ferrous Sulfate 325 mg 08/15/24 07:15 08/15/24 10:20 Ferrous Sulf 325 Mg Tablet PO 09/14/24 07:14 Not Given QOD WAYNE Glucagon 1 mg 08/14/24 15:04 Glucagon Inj 1 Mg Vial IM Q15MIN PRN BG <70, and no IV access Octreotide Acetate 1,000 mcg/ 102 mls @ 5.1 mls/hr 08/14/24 14:54 08/14/24 16:29 Sodium Chloride IV 08/15/24 10:53 50 mcg/hr .Q20H WAYNE 5.1 mls/hr Administration Protocol 50 MCG/HR Ceftriaxone Sodium/Dextrose 1 gm in 50 mls @ 100 mls/hr 08/14/24 14:57 08/15/24 08:50 Rocephin/D5w 1gm Iv Premix IV 08/21/24 14:56 100 mls/hr QDAY WAYNE Administration Octreotide Acetate 1,000 mcg/ 102 mls @ 5.1 mls/hr 08/15/24 12:00 Sodium Chloride IV 09/14/24 11:59 .Q20H WAYNE Protocol 50 MCG/HR Norepinephrine/Dextrose 8 mg in 250 mls @ 6.634 mls/hr 08/14/24 18:20 08/15/24 10:17 Levophed In D5w 8mg/250ml IV 09/13/24 18:19 0.05 mcg/kg/min .Q24H PRN 6.634 mls/hr PER PROTOCOL Titration Protocol 0.05 MCG/KG/MIN Albumin Human 25 gm in 100 mls @ 100 mls/hr 08/15/24 07:00 08/15/24 07:29 Albuminar-25 Ivpb IV 08/18/24 06:59 100 mls/hr Q6HR WAYNE Administration Insulin Glargine 16 unit 08/15/24 21:00 Insulin Glargine (Lantus) 5 Unit/0.05 Ml (Per 5 Units) SC 09/14/24 20:59 HS WAYNE Insulin Human Lispro 0 unit 08/15/24 07:30 08/15/24 07:28 Insulin Lispro (Admelog) 1 Unit/0.01 Ml Unit SC 09/14/24 07:29 2 unit ACHS WAYNE Administration Protocol Lactulose 20 gm 08/15/24 09:00 08/15/24 08:53 Lactulose Syrup 20 Gm/30 Ml Udc PO 09/14/24 08:59 20 gm QDAY WAYNE Administration Protocol Midodrine 15 mg 08/15/24 10:15 08/15/24 10:25 Midodrine 5 Mg Tablet PO 09/14/24 10:14 15 mg Q6H WAYNE Administration Ondansetron HCl 4 mg 08/14/24 14:54 Ondansetron Inj 2 Mg/Ml Inj 2 Ml IVP 09/13/24 14:53 Q6H PRN NAUSEA OR VOMITING Protocol Pantoprazole Sodium 40 mg 08/14/24 21:00 08/15/24 08:50 Pantoprazole Inj 40 Mg Vial IVP 09/13/24 20:59 40 mg BID WAYNE Administration Plan 63-year-old female with past medical history of diabetes, cryptogenic cirrhosis brought over to the unit for further management of her shock Neuro Stable Alert and oriented x 3. baseline ammonia level is 13. Rxx: continue to monitor for signs of encephalopathy, no lactulose planned for now. CVS Shock Shock likely secondary to distributive shock in the setting of decompensated liver cirrhosis secondary to vasodilatory effects form nitric oxide Mil noted no change in SVI after leg raise and TPRI within normal limits, this is likely less reliable given ascites. Worsened by hepato-renal syndrome vs septic shock less likely as patient has remained afebrile but can not be ruled out as leukocytosis noted, penidng blood cultures vs cardiogenic shock less likely as bedside US noted having good contractility and CI >2.5. Will perform a bedside ultrasound Patient will likely need paracentesis to relieve intra-abdominal pressure and allow for better venous return to the heart -Levophed 0.01, Midodrine 15 mg PO Q6HRs Resp Stable Patient is saturating well on room air Chest x-ray showed vascular congestion Will continue to monitor and will likely need to diurese GI Decompensated liver cirrhosis with ascites, crypotgenic Child Marshall score of 10 placing the patient at exceed class with life expectancy 1 to 3 years and an abdominal surgery perioperative mortality of 82% Patient's MELD?NA score?24 for the corrected sodium of 137 due to hyperglycemia placing the patient had a 14 to 15% 90-day mortality -Patient is on SBP prophylaxis with Rocephin -Patient is on octreotide drip -Albumin 25 gm Q6HRs -Hepatitis Panel ordered -consider spironolactone and Lasix once renal function improves -Paracentesis planned this evening with cytology and fluid study Renal IGNACIO Prerenal in the setting of hepatorenal syndrome Patient's baseline creatinine is 1.0 when she presented with a creatinine of 2.3 Started on octreotide drip, will titrate down as tolerated and as we come down from midodrine and Levophed support Lactic acidosis?resolved. Likely in the setting of shock and hypoperfusion Patient presented with a lactic acid of 3.5 that peaked to down to 1.8 Endocrine Type 2 diabetes Patient takes insulin at home and she presented with a glucose of 635 with an A1c of 9.1 Dx: Total insulin received 32 units (10 glargine and 22 lantus) Rx: Sliding Scale & Glargine 16 units HS, low carb consistent & low sodium Rxx: continue to monitor fasting and glucose ID/Skin stable Hematology #Leukocytosis Likely reactive but infectious vs SBP less likely as patient remains afebrile, denied abdominal tenderness but can not be ruled out given given imparined renal funciton and Child-Marshall score >9 puts patient at an increased risk -Ceftriaxone 08/14/2024--- -Blood cultures negative after 24 hours. #Anemia acute on chronic Likely due to anemia of chronic disease as patient has cirrhosis. Hemoglobin 9.5 No signs of active bleed at this time Will hold chemical prophylaxis at this time as patient is coagulopathic with a low platelet count Iron Tablets every other day Thrombocytopenia In the setting of decompensated liver failure with platelets 59 on admission. Dx: Plateltes (08/14/2024--) 59-->(08/15/2024) 86, PT 15.5, INR 1.5 Rxx: Compression device Hospital Maintenance: FEN: low carb consistent-low salt, octreotide drip, referral to registered dietitian DVT PPx: SCDs GI PPx: Protonix IV twice daily IV lines: Peripheral IVs Pugh: YES Code Status: Full code Dispo: Patient will remain in the ICU for further management of her shock - The patient's plan was discussed with attending Dr. Jez Mcnally MD PGY1 Internal Medicine Attending Provider Attestation/Addendum pt seen and examined with resident, agree with above. in brief this is a 63yo F admitted for ? hepatorenal synd and on low dose levo. She is also on octreotide, midodrine and albumin 25gr q6. On physical exam she feels well is awake alert and cooperative with the exam. LCTAB, HRRR, tachypneic, distended abd, no pain on palp, edema 3+pitting to level of upper thigh. She is intermittently on levo at low dose, will increase her midodrine. still with no UOP at this time. will plan for a paracentesis today. labs, imaging, records reviewed case d/w ICU team d/w family labs, imaging, records reviewed ~38ccmin required for eval, exam, review, intervention, discussion and formulation of POC for this critically ill pt at high risk for further and ongoing decompensation
[2024-08-15] MEDS: OCTREOTIDE ACET INJ 1,000 MCG in SODIUM CHLORIDE 0.9% 100 ML 5.1 MCG IV (12:09)
--- NOTE | 2024-08-15 13:45 | ESOP_ITS ---
Procedures Procedure Date / Time 08/15/24 13:45 Procedural Time Out Time out performed: Paracentesis, Left Lower Quadrant, Time 13:45 Time out to confirm correct patient, location, procedure, and US obtained. US used to locate correct placement for paracentesis. Area sanitized with chlorhexidine. Hands washed and sanitized with alcohol based scrub. Sterile technique used and Patient draped. Lidocaine 1% needle introduced and advanced with negative pressure at left lower quadrant. Guide-wire and paracentesis catheter introduced and advanced until ascitic fluid noted. Guide-wire removed and pressure applied to catheter end. Paracentesis catheter connected to vaccutained and 6.2 Liters removed. Cather removed and pressure applied. Band- aid placed over the puncture wound. Patient tolerated procedure well. Vitals remained stable. Total Ascitic Fluid: 6.2 Liters Ordered: Albumin 50 gm - The patient's plan was discussed with attending Dr. Jez Mcnally MD PGY1 Internal Medicine Paracentesis Indication: Ascites Informed consent obtained: from patient Time out done, and the following verified: correct patient, side and site and procedure Procedure: therapeutic paracentesis Location: [facility] Local anesthetic used: lidocaine 1% Amount of anesthesia used (mL): 10 Bedside ultrasound used: yes, Ascites confirmed and location marked Preparation: sterile prep and drape Amount of fluid obtained (mL): 6,200 Fluid: clear (transparent, yellow ) Size of needle used: 22 Post procedure exam: awake, alert, normal BP, normal HR and normal SpO2 Patient tolerated procedure: well Complications: none Procedure comment: Attending note: I was present and available for all lerma aspects of this procedure. US was used to identify a pocket of fluid. A needle was placed and catheter advanced. large volume para performed. pt tolerated the procedure well with no complications.
[2024-08-15 15:33] LABS: Albumin, Peritoneal Fluid < 1.0 gm/dL; Amylase,Peritoneal Fluid < 20 IU/L; Glucose,Peritoneal Fluid 190 mg/dL; LDH,Peritoneal Fluid 297 IU/L; Protein Total,Peritoneal Fluid < 2 g/dL
[2024-08-15 17:03] LABS: Peritoneal Fluid WBC 2740 /cmm
[2024-08-15 17:06] LABS: Peritoneal Fluid Appearance Hazy; Peritoneal Fluid Color Yellow; RBC,Peritoneal Fluid 1000 /cmm
[2024-08-15] MEDS: INSULIN GLARGINE (Lantus) 5 UNIT/0.05 ML (PER 5 UNITS) 16 UNIT SC (21:17)
[2024-08-16] VITALS (69 sets, daily range): BP systolic 74–146; BP diastolic 51–93; PULSE 59–76; RESP 0–98; TEMP 35.7–37; O2SAT 87–100
[2024-08-16] MEDS: ACETAMINOPHEN 325 MG TABLET 650 MG PO (00:42)
[2024-08-16] MEDS: MIDODRINE 5 MG TABLET 15 MG PO (04:12)
[2024-08-16] MEDS: ALBUMIN HUMAN 25% IVPB 25 GM/100 ML BTL IV ×4 (06:05→23:54)
[2024-08-16 07:24] LABS: Alanine Aminotransferase 10 U/L (10-49); Albumin, Serum 3.2 gm/dL (3.4-4.8); Alkaline Phosphatase 59 U/L (46-116); Anion Gap 11 (7-16); Aspartate Amino Transferase 47 U/L (0-34); BUN/Creatinine Ratio 13 Ratio (12-20); Bilirubin,Total 2.4 mg/dL (0.3-1.2); Blood Urea Nitrogen 32 mg/dL (9-23); Calcium 7.8 mg/dL (8.3-10.6); Calcium (Corrected) 8.4 mg/dL (8.5-10.1); Carbon Dioxide 20.6 mMol/L (20.0-31.0); Chloride 98 mMol/L (98-107); Creatinine (Component) 2.5 mg/dL (0.6-1.3); Globulin 1.6 gm/dL (2.3-3.5); Glucose 206 mg/dL (74-106); Magnesium 1.9 mg/dL (1.6-2.6); Osmolality,Calculated 273 (275-295); Phosphorous 4.1 mg/dL (2.4-5.1); Potassium 5.5 mMol/L (3.4-5.1); Sodium 130 mMol/L (136-145); Total Protein 4.8 gm/dL (5.7-8.2); eGFR 21 See Note
[2024-08-16] MEDS: OCTREOTIDE ACET INJ 1,000 MCG in SODIUM CHLORIDE 0.9% 100 ML 5.1 MCG IV (07:44)
[2024-08-16] MEDS: INSULIN LISPRO (AdmeLOG) 1 UNIT/0.01 ML UNIT SC ×3 (07:48→16:29)
[2024-08-16] MEDS: cefTRIAXone/D5w 1gm IV premix 1 GM/50 ML BAG IV ×2 (08:29→11:19)
[2024-08-16] MEDS: PANTOPRAZOLE INJ 40 MG VIAL IVP ×2 (08:29→21:24)
[2024-08-16] MEDS: SOD POLYSTYRENE SULFON SUSP 15 GM/60 ML BTL PO (08:29)
[2024-08-16 08:46] LABS: Nucleated Red Blood Cell % 0 /100 WBC (0); White Blood Count 8.7 Thou/mm3 (3.6-11.0)
[2024-08-16] MEDS: [UNRECOGNIZED DRUG - OTHER] TOP (08:56)
[2024-08-16] MEDS: MENTHOL TOP (08:56)
[2024-08-16 09:11] LABS: Basophils % (Auto) 0 % (0-2.5); Eosinophils # (Auto) 0.2 Thou/mm3 (0.0-0.5); Eosinophils % (Auto) 2 % (0-10); Hematocrit 24.1 % (36.0-46.0); Immature Granulocytes % (Auto) 1 % (0-0); Immature Granulocytes Auto 0.05 Thou/mm3 (0.00-0.00); Lymphocytes # (Auto) 1.3 Thou/mm3 (1.0-4.8); Lymphocytes % (Auto) 14 % (10-50); Mean Corpuscular HGB Conc 34.4 g/dl (31.0-37.0); Mean Corpuscular Hemoglobin 33.9 pg (25.0-35.0); Mean Corpuscular Volume 98 fL (80-100); Monocytes # (Auto) 0.5 Thou/mm3 (0.0-0.8); Monocytes % (Auto) 6 % (0-12); Neutrophils # (Auto) 6.7 Thou/mm3 (1.8-7.7); Neutrophils % (Auto) 77 % (37-80); RDW Standard Deviation 57.5 fL (36.4-46.3); Red Blood Count 2.45 Miln/mm3 (4.00-5.20)
[2024-08-16 09:37] LABS: Hemoglobin 8.3 g/dL (12.0-16.0); Platelet Count 75 Thou/mm3 (140-440)
[2024-08-16 10:01] LABS: Slide Review Platelets confirmed
--- NOTE | 2024-08-16 10:41 | PD.RESPRO ---
Documentation for date of: 08/16/24 Subjective Subjective Interval history: 63-year-old female with past medical history of diabetes mellitus type II and cryptogenic decompensated cirrhosis w/ ascites presented to the ED due to shortness of breath. Patient started feeling shortness of breath since 08/11/2024 that has progressively been getting worse and is associated with palpitations. Patient also states having bilateral leg swelling onset of about 2 months ago that has progressively worsened anasarcic. Patient also noted to have decrased po intake for the past few weeks. Patient arrived to the ER blood pressure of 56/37, HR 64, and was requiring Levophed via peripheral lines and was given IV fluids boluses and has current MAP above 65. Denies fever, chills, chest pain, nausea, vomiting, recent travel, sick contacts. Patient will be admitted for anasarca ED course: ED vitals: BP 56/37, HR 64, RR 20, saturating 97% on room air ED labs: Normocytic anemia, thrombocytopenia, coagulopathic, hyponatremic, hypochloremic, creatinine 2.3, glucose 635, A1c 9.1, lactic acid 2.3 and trending up, magnesium 1.3, T. bili 2.9, alk phos 185, BNP 305, procalcitonin 1.36 ED Tx: Midodrine, 250 mL NS bolus x 2, albumin 25 x 3, NS bolus 500 mL, lispro 7 units, Levophed, lispro 10 units x 1 glargine 10 units x 1 16:00: Patient had an [employer] IN[employer] ANALYST called due to hypotension with a MAP in the 50s. Patient had received a total of 750 cc of fluid in the ER with 50 g of albumin. Despite this patient had a MAP of 50 when coming up to telemetry. Patient at bedside did not have any dizziness, chest pain or palpitation. Patient did have an lactic acid that down trended from 3.0-2.3. Patient was brought over to the ICU for pressor support and further management of her decompensated liver cirrhosis. Her abdomen is large but nontender with ascitic fluid wave 08/15/2024: No overnight events. No Urine output. Levophed 0.01, Octerotride and albumin Qday. Denied chest pain or shortness of breath. Vijaya follows with Dr. Pérez as outpatient. Vijaya stated she has had cirrhosis for several years. Patient intially stated this was her second paracentesis, but after speaking to patient's , stated she has never had a paracentesis. Per , patient developed cirrhosis shortly after about 40 years ago. Patient unsure if she has ever been checked for hepatitis. Denied autoimmune conditions. Vijaya does not take Lactulose and denied propranol or no spironoloactone-lasix. Lowere pedal edema note, patient has never had this happen before. Plan for paracentsis. 08/16/2024: Overnight Levophed 0.01 stopped with patient's MAP >65 and systolic blood pressures >120. Patient has remained afebrile overnight. Several bowel movements overnight secondary to lactulose, Lactulose D/C. Total urine ouput over the last 12 hours has remained at 260 with net -153. Over the last 2-3 hours, patient has consistently been putting out 40-50 cc per hous, thus improved renal function as compared to overnight. Patient is now s/p paracentesis, patient tolerated procedure with total of 6.2 L of ascitic fluid removed. Studies ordered. Denied abdominal tenderness or chest pain. Confirmed once again that this was patient's first paracentesis and first noted changes with liver function 40 years ago after . Patient will be downgraded. Follow up on ascitic culture. Nephrology consulted today out of concern heptorenal syndrome given low output overnight and 3+ edema. Exam Vital Signs Temp Pulse Resp BP Pulse Ox O2 Del Method O2 Flow Rate 98.4 F 60 16 139/63 H 98 Nasal Cannula 2 08/16/24 08:00 08/16/24 09:30 08/16/24 09:30 08/16/24 09:30 08/16/24 09:30 08/16/24 09:30 08/16/24 09:30 Narrative Exam General Appearance: Alert & Oriented X3, increased abdominal distention, who is lying in bed in no acute distress. NO skin lesion noted. HEENT: Skull symmetrical and atraumatic. Conjunctivae pink and moist. Oral mucosa appears dry. Pupils equal, round, reactive to light and accommodation (PERRL). External ear without lesion or discharge. left irritated sclera noted, free of dischage. Cardio: Normal Rate and Rhythm with S1 and S2 heart sounds. Systolic murmurs noted on auscultated. No bruits on carotid auscultation. 3+ peripheral edema. Lungs: Symmetric expansion but reduced secondary to abdominal distention. Chest and back non-tender. Breath sounds vesicular without crackles, wheezing or rhonchi Abdomen: Non-tender, Distended, hypo-Reactive Bowel Sounds, No abdominal hernias. No spider angioma noted. Positive fluid wave. Neuro: Alert, cooperative, oriented to person, place, and time. Speech clear. CN grossly intact. Upper motor strength 5/5 and Lower motor strength 5/5. Sensation intact. Lines: peripheral and Pugh Objective Labs 08/18/24 05:45 08/18/24 05:45 Labs: Laboratory Results - last 24 hr 08/15/24 08/16/24 08/16/24 14:30 04:42 08:17 WBC 8.7 D RBC 2.45 L Hgb 8.3 L Hct 24.1 L MCV 98 MCH 33.9 MCHC 34.4 RDW Std Deviation 57.5 H Plt Count 75 L Neut % (Auto) 77 Lymph % (Auto) 14 Boyle % (Auto) 6 Eos % (Auto) 2 Baso % (Auto) 0 Neut # (Auto) 6.7 Lymph # (Auto) 1.3 Boyle # (Auto) 0.5 Eos # (Auto) 0.2 Baso # (Auto) 0.0 Immature Gran # (Auto) 0.05 H Absolute Nucleated RBC 0.00 Immature Gran % 1 H Nucleated RBC % 0 Sodium 130 L Potassium 5.5 H D Chloride 98 Carbon Dioxide 20.6 Anion Gap 11 BUN 32 H Creatinine 2.5 H Estim Creat Clear Calc 21.0 L eGFR 21 L BUN/Creatinine Ratio 13 Glucose 206 H Calculated Osmolality 273 L Calcium 7.8 L Corrected Calcium 8.4 L Phosphorus 4.1 Magnesium 1.9 Total Bilirubin 2.4 H AST 47 H ALT 10 Alkaline Phosphatase 59 D Total Protein 4.8 L Albumin 3.2 L D Globulin 1.6 L Albumin/Globulin Ratio 2.0 Peritoneal Color Yellow Peritoneal Appearance Hazy Peritoneal WBC 2740 Peritoneal RBC 1000 Periton Polynucl WBCs 82.0 Periton Mononucl WBCs 18.0 Peritoneal Tot Protein < 2 Peritoneal Albumin < 1.0 Peritoneal LDH 297 Peritoneal Glucose 190 Peritoneal Amylase < 20 Misc Test Result Platelets confirmed ABG Interpretation ABG results: 08/14/24 08/14/24 08:25 15:20 ABG pH 7.40 ABG pCO2 35 ABG pO2 70 L ABG HCO3 22 ABG O2 Saturation 95 ABG Base Excess -2 VBG pH 7.36 VBG pCO2 40 VBG pO2 47 VBG Base Excess -3 Quality Measures Quality Measures none Advance care planning discussed with:: patient Assessment & Plan Assessment Current Active Medications: Generic Name Dose Route Start Last Admin Trade Name Freq PRN Reason Stop Dose Admin Acetaminophen 650 mg 08/14/24 19:35 08/16/24 00:42 Acetaminophen 325 Mg Tablet PO 09/13/24 14:53 650 mg Q6H PRN Administration Fever >100.4 or pain Dextrose 25 ml 08/14/24 15:04 Dextrose 50%-Water Inj 50 Ml Syringe IV 09/13/24 15:03 Q15MIN PRN BG 50-70 responsive npo pt Dextrose 50 ml 08/14/24 15:04 Dextrose 50%-Water Inj 50 Ml Syringe IV 09/13/24 15:03 Q15MIN PRN BG <50 OR BG <70 & pt unresponsive Ferrous Sulfate 325 mg 08/15/24 07:15 08/15/24 10:20 Ferrous Sulf 325 Mg Tablet PO 09/14/24 07:14 Not Given QOD WAYNE Glucagon 1 mg 08/14/24 15:04 Glucagon Inj 1 Mg Vial IM Q15MIN PRN BG <70, and no IV access Octreotide Acetate 1,000 mcg/ 102 mls @ 5.1 mls/hr 08/15/24 12:00 08/16/24 07:44 Sodium Chloride IV 09/14/24 11:59 50 mcg/hr .Q20H WAYNE 5.1 mls/hr Administration Protocol 50 MCG/HR Norepinephrine/Dextrose 8 mg in 250 mls @ 6.634 mls/hr 08/14/24 18:20 08/15/24 22:00 Levophed In D5w 8mg/250ml IV 09/13/24 18:19 0 mcg/kg/min .Q24H PRN 0 mls/hr PER PROTOCOL Titration Protocol 0.05 MCG/KG/MIN Albumin Human 25 gm in 100 mls @ 100 mls/hr 08/15/24 07:00 08/16/24 06:05 Albuminar-25 Ivpb IV 08/18/24 06:59 100 mls/hr Q6HR WAYNE Administration Ceftriaxone Sodium/Dextrose 2 gm in 50 mls @ 100 mls/hr 08/17/24 09:00 Rocephin/D5w 2gm IV 08/24/24 08:59 QDAY WAYNE Ceftriaxone Sodium/Dextrose 1 gm in 50 mls @ 100 mls/hr 08/16/24 10:45 Rocephin/D5w 1gm Iv Premix IV 08/16/24 11:14 X1 ONE Insulin Glargine 16 unit 08/15/24 21:00 08/15/24 21:17 Insulin Glargine (Lantus) 5 Unit/0.05 Ml (Per 5 Units) SC 09/14/24 20:59 16 unit HS WAYNE Administration Insulin Human Lispro 0 unit 08/15/24 07:30 08/16/24 07:48 Insulin Lispro (Admelog) 1 Unit/0.01 Ml Unit SC 09/14/24 07:29 2 unit ACHS WAYNE Administration Protocol Menthol/Methyl Salicylate 1 appl 08/16/24 08:36 08/16/24 08:56 Methyl Salic/Menthol Oint 28 Gm Tube TOP 09/15/24 08:35 1 applicatio QID PRN Administration ARTHRITIS Midodrine 15 mg 08/15/24 10:15 08/16/24 04:12 Midodrine 5 Mg Tablet PO 09/14/24 10:14 15 mg Q6H WAYNE Administration Ondansetron HCl 4 mg 08/14/24 14:54 Ondansetron Inj 2 Mg/Ml Inj 2 Ml IVP 09/13/24 14:53 Q6H PRN NAUSEA OR VOMITING Protocol Pantoprazole Sodium 40 mg 08/14/24 21:00 08/16/24 08:29 Pantoprazole Inj 40 Mg Vial IVP 09/13/24 20:59 40 mg BID WAYNE Administration Plan 63-year-old female with past medical history of diabetes, cryptogenic cirrhosis brought over to the unit for further management of her shock Neuro Stable Alert and oriented x 3. baseline ammonia level is 13. Rxx: continue to monitor for signs of encephalopathy, no lactulose planned for now. CVS Shock Shock likely secondary to distributive shock in the setting of decompensated liver cirrhosis secondary to vasodilatory effects form nitric oxide Mil noted no change in SVI after leg raise and TPRI within normal limits, this is likely less reliable given ascites. Worsened by hepato-renal syndrome vs septic shock less likely as patient has remained afebrile but can not be ruled out as leukocytosis noted, penidng blood cultures vs cardiogenic shock less likely as bedside US noted having good contractility and CI >2.5. Will perform a bedside ultrasound Patient will likely need paracentesis to relieve intra-abdominal pressure and allow for better venous return to the heart -Levophed, stopped on 08/15/2024 Resp Stable Patient is saturating well on room air Chest x-ray showed vascular congestion Will continue to monitor and will likely need to diurese GI Decompensated liver cirrhosis with ascites, crypotgenic Child Marshall score of 10 placing the patient at exceed class with life expectancy 1 to 3 years and an abdominal surgery perioperative mortality of 82%. s/p Paracentesis 6.2 Liters removed. SAAG >1.1-->Portal HTN. Albumin 50 gm given as >4 Liters removed on 08/15/2024. Patient's MELD?NA score?24 for the corrected sodium of 137 due to hyperglycemia placing the patient had a 14 to 15% 90-day mortality. -Hepatitis Panel ordered -consider spironolactone and Lasix once renal function improves -Paracentesis planned this evening with cytology and fluid study Renal IGNACIO Prerenal in the setting of hepatorenal syndrome Patient's baseline creatinine is 1.0 when she presented with a creatinine of 2.3 -Patient is on octreotide drip -Albumin 25 gm Q6HRs -titrate down on Octreotide as tolerated and Midodrine 15 QID, work on titrating down as well -Hold Midodrine if systolic BP >120 or MAP >65 -Nephrology consulted, Dr. De Paz, appreciate recommendations Lactic acidosis?resolved. Likely in the setting of shock and hypoperfusion Patient presented with a lactic acid of 3.5 that peaked to down to 1.8 Endocrine Type 2 diabetes Patient takes insulin at home and she presented with a glucose of 635 with an A1c of 9.1 Dx: Total insulin received 32 units (10 glargine and 22 lantus) Rx: Sliding Scale & Glargine 16 units HS, Lispro 2 units w/ meals, low carb consistent & low sodium Rxx: continue to monitor fasting and glucose Hematology #Leukocytosis Likely reactive but infectious vs SBP less likely as patient remains afebrile, denied abdominal tenderness but can not be ruled out given given imparined renal funciton and Child-Marshall score >9 puts patient at an increased risk -Ceftriaxone 08/14/2024--- -Blood cultures negative after 48 hours. #Anemia acute on chronic Likely due to anemia of chronic disease as patient has cirrhosis. Hemoglobin 9.5 No signs of active bleed at this time Will hold chemical prophylaxis at this time as patient is coagulopathic with a low platelet count Iron Tablets every other day Thrombocytopenia In the setting of decompensated liver failure with platelets 59 on admission. Dx: Plateltes (08/14/2024--) 59-->(08/16/2024) 75 Rxx: Compression device ID: Problem: Spontaneous Bacterial Peritonitis Although patient has denied abdominal tenderness, remained afebrile, with improving leukocytosis, treating SBP as peritoneal WBC 2740-->PMN >250. -Ceftriaxone 1 gm (08/14--08/15) -Ceftriaxone 2 gm (08/16/2024--) -follow up on peritoneal culture Hospital Maintenance: FEN: low carb consistent-low salt, octreotide drip, referral to registered dietitian DVT PPx: SCDs GI PPx: Protonix IV twice daily IV lines: Peripheral IVs Pugh: YES Code Status: Full code Dispo: Patient will be downgraded on 08/16/2024 for floors team as patient shock, resolved. - The patient's plan was discussed with attending Dr. Jez Mcnally MD PGY1 Internal Medicine Attending Provider Attestation/Addendum pt seen and examined with resident, agree with above. in brief this is a 63yo F with cryptogenic cirrhosis admitted with ? hepatorenal synd and hypotension. She has required minimal levophed and started on midodrine. She is on albumin and octreotide. There is minimal UOP. nephrology will be consulted. On physical exam she is AAOx4, LCTAB,HRRR, abd soft but distended with 3+pitting edema . she has been stable off of levo. d/w ICU team labs, imaging, records reviewed ~35min required for eval, exam, review, intervention, discussion and formulation of POC for this pt
--- NOTE | 2024-08-16 11:44 | PD.NEPHCONS ---
History of Present Illness Data of Consult Consult date: 08/16/24 Requesting Physician: Maria T Harris DO Primary Care Provider: Kaylie Montes MD Consult Narrative Reason for consult: IGNACIO History of present illness: Ms. Charlton is a 63-year-old female with past medical history of diabetes, cryptogenic cirrhosis presented to the ED due to shortness of breath that has progressively been getting worse and is associated with palpitations. Patient also states having bilateral leg swelling onset of about 2 months ago that has progressively worsened anasarcic. Patient also noted to have decrased po intake for the past few weeks. Patient arrived to the ER blood pressure of 56/37, HR 64, and was requiring Levophed via peripheral lines and was given IV fluids boluses and has current MAP above 65. Denies fever, chills, chest pain, nausea, vomiting, recent travel, sick contacts. Patient admitted for anasarca. ED COURSE: ED vitals: BP 56/37, HR 64, RR 20, saturating 97% on room air ED labs: Normocytic anemia, thrombocytopenia, coagulopathic, hyponatremic, hypochloremic, creatinine 2.3, glucose 635, A1c 9.1, lactic acid 2.3 and trending up, magnesium 1.3, T. bili 2.9, alk phos 185, BNP 305, procalcitonin 1.36 ED Tx: Midodrine, 250 mL NS bolus x 2, albumin 25 x 3, NS bolus 500 mL, lispro 7 units, Levophed, lispro 10 units x 1 glargine 10 units x 1 Patient was upgraded to ICU for pressor support, downgraded after improvement. Was determined to have spontaneous bacterial peritonitis, appropriate treatment was initiated. BP still soft, patient given octreotide, albumin, midodrine. Patient presented with elevated creatinine, 2.3 compared to baseline of 1.2, EGFR 23 compared to baseline 50. Concern for hepatorenal syndrome in the setting of acute decompensated liver failure with spontaneous bacterial peritonitis, nephrology consulted. Patient did show improvement in kidney function with midodrine and albumin support. Remains edematous with notable ascites, nontender. Denied fever, chills, chest pain, nausea, vomiting, reported good urinary output. 3.3 L urinary output over past 24 hours. WBC 4.1, hemoglobin 8.3, sodium 136, potassium 4.5, bicarb 22.5, BUN 29, creatinine 1.8, EGFR 31. Agree with current management, close monitoring. Recommend adding Aldactone. Probable IGNACIO due to ischemia secondary to severe hypotension. cc:: cc: Maria T Harris, DO Meds Home Medications and Allergies Home Medications ?Medication ?Instructions ?Recorded ?Confirmed ?Type metformin 500 mg tablet 1,000 mg PO BIDAC #0 tabs 12/07/15 08/14/24 History (Glucophage) simvastatin 10 mg tablet (Zocor) 10 mg PO HS #0 tabs 12/07/15 08/14/24 History hydrocodone 7.5 mg-ibuprofen 200 1 tab PO TID PRN Pain 04/27/20 08/14/24 History mg tablet insulin glargine 100 unit/mL (3 10 unit subcut QDAY 06/24/22 06/24/22 History mL) subcutaneous pen (Lantus Solostar U-100 Insulin) losartan 50 mg tablet 50 mg PO QDAY 06/24/22 08/14/24 History Held on 08/19/24. Instructions: Resume on 08/31/24. Restart if your PCP says you need additional agent for blood pressure control nateglinide 120 mg tablet 120 mg PO TID 06/24/22 08/14/24 History temazepam 30 mg capsule 30 mg PO QHSPRN PRN Anxiety 06/24/22 08/14/24 History folic acid 1 mg tablet 1 mg PO QDAY 08/14/24 08/14/24 History furosemide 40 mg tablet 40 mg PO .AM 08/14/24 08/15/24 History insulin glargine-yfgn 100 unit/mL 10 unit subcut DAILY 08/14/24 08/15/24 History (3 mL) subcutaneous pen (Semglee (insulin glargine-yfgn) Pen) Allergies Allergy/AdvReac Type Severity Reaction Status Date / Time No Known Allergies Allergy Verified 08/14/24 07:43 Exam Vital Signs Temp Pulse Resp BP Pulse Ox O2 Del Method O2 Flow Rate 36.9 C 60 16 139/63 H 98 Nasal Cannula 2 08/16/24 08:00 08/16/24 09:30 08/16/24 09:30 08/16/24 09:30 08/16/24 09:30 08/16/24 09:30 08/16/24 09:30 Results Labs 08/21/24 04:12 08/21/24 04:12 Labs: Short CBC 08/16/24 Range/Units 08:17 WBC 8.7 D (3.6-11.0) Thou/mm3 Hgb 8.3 L (12.0-16.0) g/dL Hct 24.1 L (36.0-46.0) % Plt Count 75 L (140-440) Thou/mm3 BMP 08/16/24 04:42 Sodium 130 L Potassium 5.5 H D Chloride 98 Carbon Dioxide 20.6 BUN 32 H Creatinine 2.5 H Glucose 206 H Calcium 7.8 L Liver Function 08/16/24 Range/Units 04:42 Total Bilirubin 2.4 H (0.3-1.2) mg/dL AST 47 H (0-34) U/L ALT 10 (10-49) U/L Alkaline Phosphatase 59 D (46-116) U/L Albumin 3.2 L D (3.4-4.8) gm/dL ABG Interpretation ABG results: 08/14/24 08/14/24 08:25 15:20 ABG pH 7.40 ABG pCO2 35 ABG pO2 70 L ABG HCO3 22 ABG O2 Saturation 95 ABG Base Excess -2 VBG pH 7.36 VBG pCO2 40 VBG pO2 47 VBG Base Excess -3 Assessment & Plan Additional Assessment & Plan Additional Plan: Complete consultation dictated by Dr. Ramirez.
--- NOTE | 2024-08-16 12:44 | ESPR_ITS ---
Documentation for date of: 08/16/24 Subjective Subjective Interval history: 08/16/2024: ICU downgrade for 63-year-old female with acute decompensated liver cirrhosis presenting with ascites status post paracentesis showing spontaneous bacterial peritonitis on fluid analysis; moreover, patient off IV pressors with MAP maintaining greater than 65. Patient is on IV antibiotics, midodrine, octreotide and albumin for support. Patient also has likely developed hepatorenal syndrome type I and as a result nephrology has been consulted for recommendations. Will continue to monitor the patient for any acute changes. Exam Vital Signs Temp Pulse Resp BP Pulse Ox O2 Del Method O2 Flow Rate 98.4 F 60 16 139/63 H 98 Nasal Cannula 2 08/16/24 08:00 08/16/24 09:30 08/16/24 09:30 08/16/24 09:30 08/16/24 09:30 08/16/24 09:30 08/16/24 09:30 FiO2 91 08/16/24 09:00 Narrative Exam Physical Exam: GENERAL: Awake, answering questions appropriately, appears stated age HEENT: NC/AT. Moist mucosa. PERRLA/EOMI. CARDIO: Heart RRR, no obvious murmurs, no JVD. PULM: No coughing or visible SOB. Lungs CTA B/L. GI: Abdomen soft, mildly distended, no fluid wave noted, hypoactive bowel sounds , no guarding or rebound tenderness. SKIN/MSK/EXT: +2 pitting edema bilaterally on lower extremities. No wounds/discoloration/rashes/amputations. +Pedal pulses present B/L. NEURO: Oriented x3, Moves extremities x4, no focal neurologic deficits noted Objective Labs 08/17/24 05:23 08/17/24 05:23 Labs: Laboratory Results - last 24 hr 08/15/24 08/16/24 08/16/24 14:30 04:42 08:17 WBC 8.7 D RBC 2.45 L Hgb 8.3 L Hct 24.1 L MCV 98 MCH 33.9 MCHC 34.4 RDW Std Deviation 57.5 H Plt Count 75 L Neut % (Auto) 77 Lymph % (Auto) 14 Villalba % (Auto) 6 Eos % (Auto) 2 Baso % (Auto) 0 Neut # (Auto) 6.7 Lymph # (Auto) 1.3 Villalba # (Auto) 0.5 Eos # (Auto) 0.2 Baso # (Auto) 0.0 Immature Gran # (Auto) 0.05 H Absolute Nucleated RBC 0.00 Immature Gran % 1 H Nucleated RBC % 0 Sodium 130 L Potassium 5.5 H D Chloride 98 Carbon Dioxide 20.6 Anion Gap 11 BUN 32 H Creatinine 2.5 H Estim Creat Clear Calc 21.0 L eGFR 21 L BUN/Creatinine Ratio 13 Glucose 206 H Calculated Osmolality 273 L Calcium 7.8 L Corrected Calcium 8.4 L Phosphorus 4.1 Magnesium 1.9 Total Bilirubin 2.4 H AST 47 H ALT 10 Alkaline Phosphatase 59 D Total Protein 4.8 L Albumin 3.2 L D Globulin 1.6 L Albumin/Globulin Ratio 2.0 Peritoneal Color Yellow Peritoneal Appearance Hazy Peritoneal WBC 2740 Peritoneal RBC 1000 Periton Polynucl WBCs 82.0 Periton Mononucl WBCs 18.0 Peritoneal Tot Protein < 2 Peritoneal Albumin < 1.0 Peritoneal LDH 297 Peritoneal Glucose 190 Peritoneal Amylase < 20 Misc Test Result Platelets confirmed ABG Interpretation ABG results: 08/14/24 08/14/24 08:25 15:20 ABG pH 7.40 ABG pCO2 35 ABG pO2 70 L ABG HCO3 22 ABG O2 Saturation 95 ABG Base Excess -2 VBG pH 7.36 VBG pCO2 40 VBG pO2 47 VBG Base Excess -3 Quality Measures Quality Measures none Advance care planning discussed with:: patient Assessment & Plan Assessment Current Active Medications: Generic Name Dose Route Start Last Admin Trade Name Freq PRN Reason Stop Dose Admin Acetaminophen 650 mg 08/14/24 19:35 08/16/24 00:42 Acetaminophen 325 Mg Tablet PO 09/13/24 14:53 650 mg Q6H PRN Administration Fever >100.4 or pain Dextrose 25 ml 08/14/24 15:04 Dextrose 50%-Water Inj 50 Ml Syringe IV 09/13/24 15:03 Q15MIN PRN BG 50-70 responsive npo pt Dextrose 50 ml 08/14/24 15:04 Dextrose 50%-Water Inj 50 Ml Syringe IV 09/13/24 15:03 Q15MIN PRN BG <50 OR BG <70 & pt unresponsive Ferrous Sulfate 325 mg 08/15/24 07:15 08/15/24 10:20 Ferrous Sulf 325 Mg Tablet PO 09/14/24 07:14 Not Given QOD WAYNE Glucagon 1 mg 08/14/24 15:04 Glucagon Inj 1 Mg Vial IM Q15MIN PRN BG <70, and no IV access Octreotide Acetate 1,000 mcg/ 102 mls @ 5.1 mls/hr 08/15/24 12:00 08/16/24 07:44 Sodium Chloride IV 09/14/24 11:59 50 mcg/hr .Q20H WAYNE 5.1 mls/hr Administration Protocol 50 MCG/HR Albumin Human 25 gm in 100 mls @ 100 mls/hr 08/15/24 07:00 08/16/24 11:22 Albuminar-25 Ivpb IV 08/18/24 06:59 100 mls/hr Q6HR WAYNE Administration Ceftriaxone Sodium/Dextrose 2 gm in 50 mls @ 100 mls/hr 08/17/24 09:00 Rocephin/D5w 2gm IV 08/24/24 08:59 QDAY [facility] Insulin Glargine 16 unit 08/15/24 21:00 08/15/24 21:17 Insulin Glargine (Lantus) 5 Unit/0.05 Ml (Per 5 Units) [place] 09/14/24 20:59 16 unit HS [facility] Administration Insulin Human Lispro 0 unit 08/15/24 07:30 08/16/24 11:18 Insulin Lispro (Admelog) 1 Unit/0.01 Ml Unit SC 09/14/24 07:29 3 unit ACHS [facility] Administration Protocol Insulin Human Lispro 2 unit 08/16/24 17:00 Insulin Lispro (Admelog) 1 Unit/0.01 Ml Unit SC 09/15/24 16:59 ACHS [facility] Menthol/Methyl Salicylate 1 appl 08/16/24 08:36 08/16/24 08:56 Methyl Salic/Menthol Oint 28 Gm Tube TOP 09/15/24 08:35 1 applicatio QID PRN Administration ARTHRITIS Midodrine 15 mg 08/16/24 12:08 08/16/24 12:09 Midodrine 5 Mg Tablet PO 09/14/24 10:14 Not Given Q6H [facility] Ondansetron HCl 4 mg 08/14/24 14:54 Ondansetron Inj 2 Mg/Ml Inj 2 Ml IVP 09/13/24 14:53 Q6H PRN NAUSEA OR VOMITING Protocol Pantoprazole Sodium 40 mg 08/14/24 21:00 08/16/24 08:29 Pantoprazole Inj 40 Mg Vial IVP 09/13/24 20:59 40 mg BID WAYNE Administration Plan 63-year-old female with past medical history of diabetes, cryptogenic cirrhosis brought over to the unit for further management of her shock #Decompensated liver cirrhosis with ascites #Thrombocytopenia Child Marshall score of 10 placing the patient at exceed class with life expectancy 1 to 3 years and an abdominal surgery perioperative mortality of 82% MELD?NA score?24 for the corrected sodium of 137 due to hyperglycemia placing the patient had a 14 to 15% 90-day mortality Status post paracentesis for ascites which showed peritoneal fluid color yellow, WBC 2740, RBC 1000, polynuclear WBC 82, total protein less than 2, albumin less than 1.0, LDH 297, peritoneal glucose 190, peritoneal amylase less than 20 and serum total protein of 4.8 Blood cultures no growth within 48 hours Plan: 2 g IV ceftriaxone for SBP noted on pleural fluid analysis Continue octreotide drip Continue albumin 25 gm Q6HRs Pending hepatitis workup Will hold lactulose at this time and restart when appropriate Will consider starting spironolactone and diuretics once renal function improves as noted below #Hepatorenal syndrome type II #Acute kidney injury Prerenal in the setting of hepatorenal syndrome Patient's baseline creatinine is 1.0 when she presented with a creatinine of 2.3 Started on octreotide drip, will titrate down as tolerated and as we come down from midodrine and Levophed support Plan: Nephrology consulted, appreciate recommendations Continue albumin as above Will consider diuretics pending nephrology recommendations Monitor electrolytes and replete as necessary #Shock, resolved #Aortic stenosis Likely secondary to distributive shock in the setting of decompensated liver cirrhosis secondary Septic shock less likely but possible as patient has remained afebrile but pleural fluid shows signs of SBP with elevated WBC Echocardiogram shows Normal LVsize and wall thickness. Estimated EF 65%. The RV is normal in size and systolic function. Moderately increased LA volume 39 mL/m?. [id number] MR. Moderate thickening of the AV. Mild to moderate , mean gradient 18 mmHg, JORGE 1 cm?. There is mild TR and PI. Inferior vena cava not well visualized. Patient status post IV pressors and paracentesis for ascites Plan: Monitor on telemetry Continue midodrine 15 mg PO Q6HRs with holding parameters #Insulin-dependent type 2 diabetes Patient takes insulin at home and she presented with a glucose of 635 with an A1c of 9.1 Total insulin received 32 units (10 glargine and 22 lantus) Plan: Continue sliding Scale Glargine 16 units HS, low carb consistent & low sodium #Anemia of chronic disease Likely due to anemia of chronic disease as patient has cirrhosis. Hemoglobin 9.5 No signs of active bleed at this time Will hold chemical prophylaxis at this time as patient is coagulopathic with a low platelet count Iron panel shows: Iron of 23, TIBC 179, iron saturation 12%, ferritin 128 Plan: Iron Tablets every other day Hospital Management: FEN: low carb consistent-low salt, octreotide drip, referral to registered dietitian DVT PPx: SCDs GI PPx: Protonix IV twice daily IV lines: Peripheral IVs Pugh: YES Code Status: Full code Dispo: Nephrology consulted for HRS type I, monitoring for acute decompensated liver cirrhosis Patient seen and examined with attending Dr. Kimberly Leiva, PGY-1 Attending Provider Attestation/Addendum I, Maria T Harris, DO, attest that I was physically present for the lerma portions of the service and evaluated the patient with the resident and I reviewed and discussed the case with the resident and agree with the resident's findings and plans of care as documented above Patient seen and eval this afternoon. Patient has been downgraded from ICU and weaned off of IV pressors. Patient is currently on midodrine 10 mg 3 times daily as needed. Patient denies any abdominal pain, fevers, chills, chest pain, shortness of breath. Renal function appears to be worsening with creatinine of 2.5. Will consult nephrology due to concern for hepatorenal syndrome. Patient underwent a paracentesis yesterday during which 6.2 L of ascitic fluid was removed. Patient was noted to have SBP with elevated polymorphonuclear neutrophils. She continues to have 2+ pitting edema in bilateral lower extremities. Will follow-up with nephrology recommendations at this time. Will start diuresis once renal function improves. Continue with IV Rocephin 2 g daily. Patient is currently on 2 L nasal cannula and in no respiratory distress.
[2024-08-16 12:48] LABS: Potassium 4.3 mMol/L (3.4-5.1)
[2024-08-16] MEDS: LIDOCAINE 5% 1 PATCH TOP (14:15)
--- NOTE | 2024-08-16 15:28 | PC.SS ---
Santa Charlton is 63 year old female admitted to [facility] for Anasarca. SS conducted bedside contact with the patient to complete initial assessment and to discuss discharge planning.? SW used all precautionary measures to complete initial. Role and reason for the contact was explained to Santa. Pt is alert and oriented times 4. Patient confirmed demographic information on facesheet and lives with spouse. Patient identifies Kvng Charlton, spouse, as her surrogate decision maker. Pt states prior to hospitalization she is able to complete ADL?s independently. Pt uses DME walker, wheelchair; pt does not use O2. Pt confirmed no history of mental health or substance abuse. Pts PCP is Kaylie Mi last visit was about 3 months ago. Pharmacy of choice is [facility]. Pt has diabetes and has glucose monitor and uses injections. Advance directive discussed and was not receptive. ?Discharge options discussed and the pt will return home. ?Family will provide transportation upon DC. No further intervention required at this time, health social work professor would be available to address any further concerns. DC Plan: Home Contact: Kvng Charlton, spouse, Address: Confirmed on face sheet PCP: Kaylie Mi
--- NOTE | 2024-08-16 15:46 | PC.SS ---
Santa Charlton is 63 year old female admitted to ICU for Anasarca. SS conducted bedside contact with the patient to complete initial assessment and to discuss discharge planning.? SW used all precautionary measures to complete initial. Role and reason for the contact was explained to Santa. Pt is alert and oriented times 4. Patient confirmed demographic information on facesheet and lives with spouse. Patient identifies Kvng Charlton, spouse, as her surrogate decision maker. Pt states prior to hospitalization she is able to complete ADL?s independently. Pt uses DME walker, wheelchair; pt does not use O2. Pt confirmed no history of mental health or substance abuse. Pts PCP is Kaylie Mi last visit was about 3 months ago. Pharmacy of choice is [facility]. Pt has diabetes and has glucose monitor and uses injections. Advance directive discussed and was not receptive. ?Discharge options discussed and the pt will return home. ?Family will provide transportation upon DC. No further intervention required at this time, social service agency director would be available to address any further concerns. DC Plan: Home Contact: Kvng Charlton, spouse, Address: Confirmed on face sheet PCP: Kaylie Mi
[2024-08-16] MEDS: INSULIN LISPRO (AdmeLOG) 1 UNIT/0.01 ML UNIT 5 UNIT SC (16:28)
[2024-08-16] MEDS: Magnesium Sulfate 2 GM Ivpb 2 GM/50 ML BAG IV (16:28)
[2024-08-16] MEDS: CALCIUM CARBONATE 600 MG TABLET PO (16:28)
[2024-08-16] MEDS: INSULIN GLARGINE (Lantus) 5 UNIT/0.05 ML (PER 5 UNITS) 20 UNIT SC (21:24)
[2024-08-17] VITALS (13 sets, daily range): BP systolic 120–147; BP diastolic 61–77; PULSE 75–98; RESP 15–92; TEMP 36.1–37.7; O2SAT 94–99
[2024-08-17] MEDS: [UNRECOGNIZED DRUG - OTHER] TOP (00:02)
[2024-08-17] MEDS: MENTHOL TOP (00:02)
[2024-08-17 00:24] LABS: Hepatitis A Antibody IgM Non Reactive (Non React); Hepatitis B Core Antibody IgM Non Reactive (Non React); Hepatitis B Surface Antigen Non Reactive (Non React); Hepatitis C Antibody Non Reactive (Non React)
[2024-08-17] MEDS: OCTREOTIDE ACET INJ 1,000 MCG in SODIUM CHLORIDE 0.9% 100 ML 5.1 MCG IV (04:30)
[2024-08-17] MEDS: ALBUMIN HUMAN 25% IVPB 25 GM/100 ML BTL IV ×3 (05:12→18:33)
[2024-08-17 05:49] LABS: Basophils % (Auto) 1 % (0-2.5); Eosinophils # (Auto) 0.1 Thou/mm3 (0.0-0.5); Eosinophils % (Auto) 2 % (0-10); Hematocrit 23.8 % (36.0-46.0); Immature Granulocytes % (Auto) 1 % (0-0); Immature Granulocytes Auto 0.03 Thou/mm3 (0.00-0.00); Lymphocytes # (Auto) 0.7 Thou/mm3 (1.0-4.8); Lymphocytes % (Auto) 17 % (10-50); Mean Corpuscular HGB Conc 34.9 g/dl (31.0-37.0); Mean Corpuscular Volume 98 fL (80-100); Monocytes # (Auto) 0.4 Thou/mm3 (0.0-0.8); Monocytes % (Auto) 10 % (0-12); Neutrophils # (Auto) 2.9 Thou/mm3 (1.8-7.7); Neutrophils % (Auto) 70 % (37-80); Nucleated Red Blood Cell % 0 /100 WBC (0); RDW Standard Deviation 56.6 fL (36.4-46.3); Red Blood Count 2.44 Miln/mm3 (4.00-5.20); White Blood Count 4.1 Thou/mm3 (3.6-11.0)
[2024-08-17 06:11] LABS: Hemoglobin 8.3 g/dL (12.0-16.0); Platelet Count 57 Thou/mm3 (140-440)
[2024-08-17 06:19] LABS: Iron 41 mcg/dL (50-170); Percent Iron Saturation 33 % (20-55); Total Iron Binding Capacity 122 mcg/dL (250-425); Unsaturated Iron Binding 81 (225-295)
[2024-08-17 06:29] LABS: Slide Review Platelets confirmed
[2024-08-17 06:31] LABS: Alanine Aminotransferase < 7 U/L (10-49); Albumin, Serum 3.5 gm/dL (3.4-4.8); Albumin/Globulin Ratio 1.8 (1.2-2.2); Alkaline Phosphatase 49 U/L (46-116); Anion Gap 11 (7-16); Aspartate Amino Transferase 14 U/L (0-34); BUN/Creatinine Ratio 16 Ratio (12-20); Bilirubin,Total 2.8 mg/dL (0.3-1.2); Blood Urea Nitrogen 29 mg/dL (9-23); Calcium (Corrected) 9.4 mg/dL (8.5-10.1); Carbon Dioxide 22.5 mMol/L (20.0-31.0); Chloride 103 mMol/L (98-107); Creatinine (Component) 1.8 mg/dL (0.6-1.3); Estimated Creatinine Clearance 29.4 mL/min (>60); Globulin 1.9 gm/dL (2.3-3.5); Glucose 150 mg/dL (74-106); Magnesium 2.1 mg/dL (1.6-2.6); Osmolality,Calculated 280 (275-295); Potassium 4.5 mMol/L (3.4-5.1); Sodium 136 mMol/L (136-145); Total Protein 5.4 gm/dL (5.7-8.2); eGFR 31 See Note
[2024-08-17] MEDS: cefTRIAXone/D5w 2gm 2 GM/50 ML BAG IV (08:29)
[2024-08-17] MEDS: FERROUS SULF 325 MG TABLET PO (08:29)
[2024-08-17] MEDS: PANTOPRAZOLE INJ 40 MG VIAL IVP ×2 (08:29→20:48)
--- NOTE | 2024-08-17 09:03 | PD.RESCONSUL ---
HPI Data of Consult Consult date: 08/16/24 Requesting Physician: Maria T Harris DO Admitting Provider: Maria T Harris DO Attending Provider: Maria T Harris DO Primary Care Provider: Kaylie Montes MD Consult Narrative Reason for consult: IGNACIO, suspected hepatorenal syndrome History of present illness: Ms. Charlton is a 63-year-old female with past medical history of diabetes, cryptogenic cirrhosis presented to the ED due to shortness of breath that has progressively been getting worse and is associated with palpitations. Patient also states having bilateral leg swelling onset of about 2 months ago that has progressively worsened anasarcic. Patient also noted to have decrased po intake for the past few weeks. Patient arrived to the ER blood pressure of 56/37, HR 64, and was requiring Levophed via peripheral lines and was given IV fluids boluses and has current MAP above 65. Denies fever, chills, chest pain, nausea, vomiting, recent travel, sick contacts. Patient admitted for anasarca. ED COURSE: ED vitals: BP 56/37, HR 64, RR 20, saturating 97% on room air ED labs: Normocytic anemia, thrombocytopenia, coagulopathic, hyponatremic, hypochloremic, creatinine 2.3, glucose 635, A1c 9.1, lactic acid 2.3 and trending up, magnesium 1.3, T. bili 2.9, alk phos 185, BNP 305, procalcitonin 1.36 ED Tx: Midodrine, 250 mL NS bolus x 2, albumin 25 x 3, NS bolus 500 mL, lispro 7 units, Levophed, lispro 10 units x 1 glargine 10 units x 1 Patient was upgraded to ICU for pressor support, downgraded after improvement. Was determined to have spontaneous bacterial peritonitis, appropriate treatment was initiated. BP still soft, patient given octreotide, albumin, midodrine. Patient presented with elevated creatinine, 2.3 compared to baseline of 1.2, EGFR 23 compared to baseline 50. Concern for hepatorenal syndrome in the setting of acute decompensated liver failure with spontaneous bacterial peritonitis, nephrology consulted. Patient did show improvement in kidney function with midodrine and albumin support. Remains edematous with notable ascites, nontender. Denied fever, chills, chest pain, nausea, vomiting, reported good urinary output. 3.3 L urinary output over past 24 hours. WBC 4.1, hemoglobin 8.3, sodium 136, potassium 4.5, bicarb 22.5, BUN 29, creatinine 1.8, EGFR 31. Agree with current management, close monitoring. Recommend adding Aldactone. Probable IGNACIO due to ischemia secondary to severe hypotension. cc:: cc: Maria T Harris DO Review of Systems Review of Systems Systems Reviewed: All systems reviewed, normal except as documented Past Medical History Past Medical History NEUROLOGIC: Negative Neurological Disorders or Seizures CARDIAC: Positive Hypercholesterolemia and Hypertension; Negative Cardiac Disorders or Congestive Heart Failure RESPIRATORY: Negative Chronic Obstructive Pulmonary Disease (COPD) or Asthma GASTROINTESTINAL: Positive Gastrointestinal Disorders, Cirrhosis and Hemorrhoids GENITOURINARY: Negative Genitourinary Disorders or Renal Disease REPRODUCTIVE: Positive Previous Pregnancies MUSCULOSKELETAL: Positive Musculoskeletal Disorders, Arthritis and Carpal Tunnel Syndrome ENDOCRINE: Positive Endocrine Disorders and Diabetes Mellitus Type 2; Negative Diabetes Mellitus Type 1 HEMATOLOGIC: Positive Anemia; Negative Blood Disorders or Sickle Cell Disease OTHER HISTORY: Positive Hospitalization and Falls; Negative Blood Transfusions, Anesthesia Reactions or Cancer Family History FAMILY HISTORY: Negative Family Cardiac Disorders Surgical History SURGICAL: Positive Ear Surgery, of Shoulder Sx, Knee Sx and Section; Negative Cardiac Surgery Social History SMOKING STATUS: Never smoker SUBSTANCE USE: does not use Exam Vital Signs Temp Pulse Resp BP Pulse Ox O2 Del Method O2 Flow Rate 98.7 F 84 19 122/62 95 Nasal Cannula 2 08/17/24 04:24 08/17/24 06:40 08/17/24 06:40 08/17/24 04:24 08/17/24 06:40 08/17/24 04:24 08/17/24 06:40 FiO2 91 08/16/24 09:00 Narrative Exam PE: Gen: Well-developed and well-nourished. HEENT: NCAT, PERRLA, EOMI, MMM, anicteric conjunctivae. CVS: normal S1 and S2. RRR. No M/R/G. Resp: CTA B/L. No rhonchi, rales, crackles or wheezing. Abd: soft, non-tender. Mild distention positive fluid wave. MSK: Good ROM in BUE & BLE. No rash. 2+ edema BLE, mild upper extremity edema. Neuro: CN II-XII grossly intact. Strength 5/5 in BUE & BLE. Alert and oriented x3. Psych: appropriate mood and affect. Results Labs 08/18/24 05:45 08/17/24 05:23 Labs: Short CBC 08/16/24 08/17/24 Range/Units 08:17 05:23 WBC 8.7 D 4.1 D (3.6-11.0) Thou/mm3 Hgb 8.3 L 8.3 L (12.0-16.0) g/dL Hct 24.1 L 23.8 L (36.0-46.0) % Plt Count 75 L 57 L D (140-440) Thou/mm3 BMP 08/16/24 08/17/24 12:03 05:23 Sodium 136 Potassium 4.3 D 4.5 Chloride 103 Carbon Dioxide 22.5 BUN 29 H Creatinine 1.8 H D Glucose 150 H D Calcium 9.0 Liver Function 08/17/24 Range/Units 05:23 Total Bilirubin 2.8 H (0.3-1.2) mg/dL AST 14 (0-34) U/L ALT < 7 L (10-49) U/L Alkaline Phosphatase 49 (46-116) U/L Albumin 3.5 (3.4-4.8) gm/dL ABG Interpretation ABG results: 08/14/24 08/14/24 08:25 15:20 ABG pH 7.40 ABG pCO2 35 ABG pO2 70 L ABG HCO3 22 ABG O2 Saturation 95 ABG Base Excess -2 VBG pH 7.36 VBG pCO2 40 VBG pO2 47 VBG Base Excess -3 Quality Measures Quality Measures VTE prophylaxis Advance care planning discussed with:: patient Medications Home Medications and Allergies Home Medications ?Medication ?Instructions ?Recorded ?Confirmed ?Type metformin 500 mg tablet 1,000 mg PO BIDAC #0 tabs 12/07/15 08/14/24 History (Glucophage) simvastatin 10 mg tablet (Zocor) 10 mg PO HS #0 tabs 12/07/15 08/14/24 History hydrocodone 7.5 mg-ibuprofen 200 1 tab PO TID PRN Pain 04/27/20 08/14/24 History mg tablet insulin glargine 100 unit/mL (3 10 unit subcut QDAY 06/24/22 06/24/22 History mL) subcutaneous pen (Lantus Solostar U-100 Insulin) losartan 50 mg tablet 50 mg PO QDAY 06/24/22 08/14/24 History nateglinide 120 mg tablet 120 mg PO TID 06/24/22 08/14/24 History temazepam 30 mg capsule 30 mg PO QHSPRN PRN Anxiety 06/24/22 08/14/24 History ferrous sulfate 325 mg (65 mg 325 mg PO BID 08/14/24 08/15/24 History iron) tablet (FeroSul) folic acid 1 mg tablet 1 mg PO QDAY 08/14/24 08/14/24 History furosemide 40 mg tablet 40 mg PO .AM 08/14/24 08/15/24 History insulin glargine-yfgn 100 unit/mL 10 unit subcut DAILY 08/14/24 08/15/24 History (3 mL) subcutaneous pen (Semglee (insulin glargine-yfgn) Pen) spironolactone 50 mg tablet 50 mg PO .am 08/14/24 08/15/24 History Allergies Allergy/AdvReac Type Severity Reaction Status Date / Time No Known Allergies Allergy Verified 08/14/24 07:43 Visit Medications Acetaminophen (Acetaminophen 325 Mg Tablet) 650 mg PO Q6H PRN PRN Reason: Fever >100.4 or pain Stop: 09/13/24 14:53 Last Admin: 08/16/24 00:42 Dose: 650 mg Dextrose (Dextrose 50%-Water Inj 50 Ml Syringe) 50 ml IV Q15MIN PRN PRN Reason: BG <50 OR BG <70 & pt unresponsive Stop: 09/13/24 15:03 Ferrous Sulfate (Ferrous Sulf 325 Mg Tablet) 325 mg PO QOD WAYNE Stop: 09/14/24 07:14 Last Admin: 08/17/24 08:29 Dose: 325 mg Glucagon (Glucagon Inj 1 Mg Vial) 1 mg IM Q15MIN PRN PRN Reason: BG <70, and no IV access Octreotide Acetate 1,000 mcg/ (Sodium Chloride) 102 mls @ 5.1 mls/hr IV .Q20H WAYNE; Protocol Stop: 09/14/24 11:59 Last Admin: 08/17/24 04:30 Dose: 50 mcg/hr, 5.1 mls/hr Albumin Human (Albuminar-25 Ivpb) 25 gm in 100 mls @ 100 mls/hr IV Q6HR WAYNE Stop: 08/18/24 06:59 Last Admin: 08/17/24 05:12 Dose: 100 mls/hr Ceftriaxone Sodium/Dextrose (Rocephin/D5w 2gm) 2 gm in 50 mls @ 100 mls/hr IV QDAY [facility] Stop: 08/24/24 08:59 Last Admin: 08/17/24 08:29 Dose: 100 mls/hr Insulin Glargine (Insulin Glargine (Lantus) 5 Unit/0.05 Ml (Per 5 Units)) 20 unit SC HS [facility] Stop: 09/15/24 20:59 Last Admin: 08/16/24 21:24 Dose: 20 unit Insulin Human Lispro (Insulin Lispro (Admelog) 1 Unit/0.01 Ml Unit) 0 unit SC AC [facility]; Protocol Stop: 09/15/24 16:59 Last Admin: 08/17/24 07:11 Dose: Not Given Insulin Human Lispro (Insulin Lispro (Admelog) 1 Unit/0.01 Ml Unit) 5 unit SC AC [facility] Stop: 09/15/24 16:59 Last Admin: 08/17/24 07:11 Dose: Not Given Lidocaine (Lidocaine 5% 1 Patch) 1 patch TOP UD PRN PRN Reason: LT shoulder Pain Stop: 09/15/24 15:31 Menthol/Methyl Salicylate (Methyl Salic/Menthol Oint 28 Gm Tube) 1 appl TOP QID PRN PRN Reason: ARTHRITIS Stop: 09/15/24 08:35 Last Admin: 08/17/24 00:02 Dose: 1 applicatio Midodrine (Midodrine 5 Mg Tablet) 10 mg PO TID PRN PRN Reason: SBP <99 Stop: 09/15/24 21:59 Ondansetron HCl (Ondansetron Inj 2 Mg/Ml Inj 2 Ml) 4 mg IVP Q6H PRN; Protocol PRN Reason: NAUSEA OR VOMITING Stop: 09/13/24 14:53 Pantoprazole Sodium (Pantoprazole Inj 40 Mg Vial) 40 mg IVP BID [facility] Stop: 09/13/24 20:59 Last Admin: 08/17/24 08:29 Dose: 40 mg Discontinued Medications Acetaminophen (Acetaminophen 325 Mg Tablet) 650 mg PO Q6H PRN PRN Reason: Fever >101.5 Stop: 09/13/24 14:53 Calcium Carbonate (Calcium Carbonate 600 Mg Tablet) 600 mg PO X1 ONE Stop: 08/16/24 15:38 Last Admin: 08/16/24 16:28 Dose: 600 mg Dextrose (Dextrose 50%-Water Inj 50 Ml Syringe) 25 ml IV Q15MIN PRN PRN Reason: BG 50-70 responsive npo pt Stop: 09/13/24 15:03 Diclofenac Sodium (Diclofenac 1% Top Gel 100 Gm Tube) 2 gm TOP QID WAYNE Stop: 09/15/24 16:59 Last Admin: 08/16/24 15:46 Dose: Not Given Norepinephrine/Dextrose (Levophed In D5w 8mg/250ml) 8 mg in 250 mls @ 6.634 mls/hr IV .Q24H PRN; Protocol PRN Reason: PER PROTOCOL Stop: 09/13/24 08:24 Last Titration: 08/14/24 13:11 Dose: 0 mcg/kg/min, 0 mls/hr Albumin Human (Albuminar-25 Ivpb) 25 gm in 100 mls @ 100 mls/hr IV X1 ONE Stop: 08/14/24 09:25 Last Infusion: 08/14/24 09:47 Dose: Infused Sodium Chloride (Ns) 250 mls @ 999 mls/hr IV .Q16M ONE Stop: 08/14/24 08:41 Last Infusion: 08/14/24 09:23 Dose: Infused Sodium Chloride (Ns) 250 mls @ 999 mls/hr IV .Q16M ONE Stop: 08/14/24 10:13 Last Admin: 08/14/24 10:09 Dose: Not Given Albumin Human (Albuminar-25 Ivpb) 25 gm in 100 mls @ 100 mls/hr IV X1 ONE Stop: 08/14/24 11:59 Last Infusion: 08/14/24 11:18 Dose: Infused Magnesium Sulfate (Magnesium Sulfate Ivpb) 4 gm in 50 mls @ 12.5 mls/hr IV X1 ONE Stop: 08/14/24 14:32 Last Infusion: 08/14/24 15:30 Dose: Infused Sodium Chloride (Ns) 500 mls @ 999 mls/hr IV .Q31M ONE Stop: 08/14/24 12:39 Last Infusion: 08/14/24 13:35 Dose: Infused Octreotide Acetate 1,000 mcg/ (Sodium Chloride) 102 mls @ 5.1 mls/hr IV .Q20H WAYNE; Protocol Stop: 08/15/24 10:53 Last Admin: 08/14/24 16:29 Dose: 50 mcg/hr, 5.1 mls/hr Ceftriaxone Sodium/Dextrose (Rocephin/D5w 1gm Iv Premix) 1 gm in 50 mls @ 100 mls/hr IV QDAY WAYNE Stop: 08/21/24 14:56 Last Infusion: 08/17/24 07:33 Dose: Infused Albumin Human (Albuminar-25 Ivpb) 25 gm in 100 mls @ 100 mls/hr IV X1 ONE Stop: 08/14/24 19:01 Last Admin: 08/14/24 18:08 Dose: 100 mls/hr Norepinephrine/Dextrose (Levophed In D5w 8mg/250ml) 8 mg in 250 mls @ 6.634 mls/hr IV .Q24H PRN; Protocol PRN Reason: PER PROTOCOL Stop: 09/13/24 18:19 Last Titration: 08/15/24 22:00 Dose: 0 mcg/kg/min, 0 mls/hr Magnesium Sulfate (Magnesium Sulfate Ivpb) 2 gm in 50 mls @ 25 mls/hr IV X1 ONE Stop: 08/15/24 08:46 Last Infusion: 08/15/24 11:20 Dose: Infused Albumin Human (Albuminar-25 Ivpb) 25 gm in 100 mls @ 100 mls/hr IV Q1H WAYNE Stop: 08/15/24 16:44 Last Admin: 08/15/24 15:52 Dose: 100 mls/hr Ceftriaxone Sodium/Dextrose (Rocephin/D5w 1gm Iv Premix) 1 gm in 50 mls @ 100 mls/hr IV X1 ONE Stop: 08/16/24 11:14 Last Infusion: 08/17/24 07:33 Dose: Infused Magnesium Sulfate (Magnesium Sulfate Ivpb) 2 gm in 50 mls @ 25 mls/hr IV X1 ONE Stop: 08/16/24 17:36 Last Infusion: 08/17/24 07:33 Dose: Infused Insulin Glargine (Insulin Glargine (Lantus) 5 Unit/0.05 Ml (Per 5 Units)) 10 unit SC X1 ONE Stop: 08/14/24 12:11 Last Admin: 08/14/24 12:29 Dose: 10 unit Insulin Glargine (Insulin Glargine (Lantus) 5 Unit/0.05 Ml (Per 5 Units)) 16 unit SC HS WAYNE Stop: 09/14/24 20:59 Last Admin: 08/15/24 21:17 Dose: 16 unit Insulin Human Lispro (Insulin Lispro (Admelog) 1 Unit/0.01 Ml Unit) 7 unit SC X1 ONE Stop: 08/14/24 09:57 Last Admin: 08/14/24 10:14 Dose: 7 unit Insulin Human Lispro (Insulin Lispro (Admelog) 1 Unit/0.01 Ml Unit) 10 unit SC X1 ONE Stop: 08/14/24 12:11 Last Admin: 08/14/24 12:28 Dose: 10 unit Insulin Human Lispro (Insulin Lispro (Admelog) 1 Unit/0.01 Ml Unit) 0 unit SC AC [facility]; Protocol Stop: 09/13/24 16:59 Insulin Human Lispro (Insulin Lispro (Admelog) 1 Unit/0.01 Ml Unit) 0 unit SC AC [facility]; Protocol Stop: 09/13/24 16:59 Last Admin: 08/14/24 18:25 Dose: 5 unit Insulin Human Lispro (Insulin Lispro (Admelog) 1 Unit/0.01 Ml Unit) 0 unit SC ACHS [facility]; Protocol Stop: 09/14/24 07:29 Last Admin: 08/16/24 11:18 Dose: 3 unit Insulin Human Lispro (Insulin Lispro (Admelog) 1 Unit/0.01 Ml Unit) 2 unit SC ACHS [facility] Stop: 09/15/24 16:59 Insulin Human Lispro (Insulin Lispro (Admelog) 1 Unit/0.01 Ml Unit) 5 unit SC ACHS [facility] Stop: 09/15/24 16:59 Lactulose (Lactulose Syrup 20 Gm/30 Ml Udc) 20 gm PO QDAY [facility]; Protocol Stop: 09/14/24 08:59 Last Admin: 08/15/24 08:53 Dose: 20 gm Lidocaine (Lidocaine 5% 1 Patch) 1 patch TOP X1 ONE Stop: 08/16/24 13:55 Last Admin: 08/16/24 14:15 Dose: 1 patch Midodrine (Midodrine 5 Mg Tablet) 10 mg PO TID [facility] Stop: 09/13/24 08:29 Last Admin: 08/14/24 16:03 Dose: 10 mg Midodrine (Midodrine 5 Mg Tablet) 15 mg PO TID WAYNE Stop: 09/13/24 21:59 Last Admin: 08/15/24 05:51 Dose: 15 mg Midodrine (Midodrine 5 Mg Tablet) 15 mg PO Q6H WAYNE Stop: 09/14/24 10:14 Last Admin: 08/16/24 12:06 Dose: Not Given Midodrine (Midodrine 5 Mg Tablet) 15 mg PO Q6H WAYNE Stop: 09/14/24 10:14 Last Admin: 08/16/24 12:09 Dose: Not Given Sodium Polystyrene Sulfonate (Sod Polystyrene Sulfon Susp 15 Gm/60 Ml Btl) 15 gm PO X1 ONE Stop: 08/16/24 09:01 Last Admin: 08/16/24 08:29 Dose: 15 gm Assessment & Plan Plan 63-year-old female with past medical history of diabetes, cryptogenic cirrhosis brought over to the unit for further management of her shock, nephrology consulted for management of IGNACIO possibly due to hepatorenal syndrome. #Acute kidney injury Likely prerenal in the setting of ischemia versus hepatorenal syndrome type II. Patient's baseline creatinine is 1.0, EGFR 50. Patient presented with a creatinine of 2.3 and EGFR 23. Patient was on pressure support due to severe hypotension, was titrated off. Started on octreotide drip, albumin and midodrine for BP support. Maintains good urinary output. Creatinine in fact improved. - Aldactone 50mg daily - Avoid nephrotoxins - Renally dose medications - Monitor daily renal function - Monitor urinary output #Decompensated liver cirrhosis with ascites #Thrombocytopenia #Shock, resolved #Aortic stenosis #Insulin-dependent type 2 diabetes #Anemia of chronic disease Management as per the primary team. Thank you for allow us to participate in the care of this patient. Plan of care discussed with attending Dr. De Paz. Wesly Lucas MD PGY?1 Attending Provider Attestation/Addendum Patient seen and examined with resident physician Dr. Colye. Note reviewed, agree with findings and recommendations. Suspect patient in hepatorenal syndrome with marked improvement in urine output/creatinine with octreotide, midodrine, albumin. Seems to have fluid overload-will add spironolactone. Spoke to primary team. Thank you Maria T for allowing me to participate in the care of Ms. Charlton
--- NOTE | 2024-08-17 09:25 | PD.RESPRO ---
Documentation for date of: 08/17/24 Subjective Subjective Interval history: 08/17/2024: No acute overnight events to report. Patient seen and examined in hospital bed reporting improvement in presenting symptoms and denies having any concerning cardiac symptoms at this time. On examination patient's abdomen is soft nontender and mildly distended with left paracentesis site noted without any erythema or drainage. Patient continues to be on IV antibiotics for SBP as noted from peritoneal fluid. Patient's kidney function is also improving; moreover, nephrology recommends starting Aldactone 50mg daily. Patient will also require physical therapy. Will continue to monitor and expect discharge within the next 24 to 48 hours. Exam Vital Signs Temp Pulse Resp BP Pulse Ox O2 Del Method O2 Flow Rate 98.7 F 84 19 122/62 95 Nasal Cannula 2 08/17/24 04:24 08/17/24 06:40 08/17/24 06:40 08/17/24 04:24 08/17/24 06:40 08/17/24 04:24 08/17/24 06:40 FiO2 91 08/16/24 09:00 Narrative Exam Physical Exam: GENERAL: Awake, answering questions appropriately, appears stated age HEENT: NC/AT. Moist mucosa. PERRLA/EOMI. CARDIO: Heart RRR, no obvious murmurs, no JVD. PULM: No coughing or visible SOB. Lungs CTA B/L. GI: Abdomen soft, mildly distended, no fluid wave noted, hypoactive bowel sounds, no guarding or rebound tenderness. SKIN/MSK/EXT: non-pitting edema bilaterally on lower extremities. No wounds/discoloration/rashes/amputations. +Pedal pulses present B/L. NEURO: Oriented x3, Moves extremities x4, no focal neurologic deficits noted Objective Labs 08/18/24 05:45 08/18/24 05:45 Labs: Laboratory Results - last 24 hr 08/15/24 08/16/24 08/16/24 04:41 08:17 12:03 WBC 8.7 D RBC 2.45 L Hgb 8.3 L Hct 24.1 L MCV 98 MCH 33.9 MCHC 34.4 RDW Std Deviation 57.5 H Plt Count 75 L Neut % (Auto) 77 Lymph % (Auto) 14 [place] % (Auto) 6 Eos % (Auto) 2 Baso % (Auto) 0 Neut # (Auto) 6.7 Lymph # (Auto) 1.3 [place] # (Auto) 0.5 Eos # (Auto) 0.2 Baso # (Auto) 0.0 Immature Gran # (Auto) 0.05 H Absolute Nucleated RBC 0.00 Immature Gran % 1 H Nucleated RBC % 0 Sodium Potassium 4.3 D Chloride Carbon Dioxide Anion Gap BUN Creatinine Estim Creat Clear Calc eGFR BUN/Creatinine Ratio Glucose Calculated Osmolality Calcium Corrected Calcium Phosphorus Magnesium Iron TIBC Iron Saturation Unsat Iron Binding Total Bilirubin AST ALT Alkaline Phosphatase Total Protein Albumin Globulin Albumin/Globulin Ratio Hepatitis A IgM Ab Non Reactive Hep Bs Antigen Non Reactive Hep B Core IgM Ab Non Reactive Hepatitis C Antibody Non Reactive Misc Test Result Platelets confirmed 08/17/24 05:23 WBC 4.1 D RBC 2.44 L Hgb 8.3 L Hct 23.8 L MCV 98 MCH 34.0 MCHC 34.9 RDW Std Deviation 56.6 H Plt Count 57 L D Neut % (Auto) 70 Lymph % (Auto) 17 [place] % (Auto) 10 Eos % (Auto) 2 Baso % (Auto) 1 Neut # (Auto) 2.9 Lymph # (Auto) 0.7 L [place] # (Auto) 0.4 Eos # (Auto) 0.1 Baso # (Auto) 0.0 Immature Gran # (Auto) 0.03 H Absolute Nucleated RBC 0.00 Immature Gran % 1 H Nucleated RBC % 0 Sodium 136 Potassium 4.5 Chloride 103 Carbon Dioxide 22.5 Anion Gap 11 BUN 29 H Creatinine 1.8 H D Estim Creat Clear Calc 29.4 L eGFR 31 L BUN/Creatinine Ratio 16 Glucose 150 H D Calculated Osmolality 280 Calcium 9.0 Corrected Calcium 9.4 Phosphorus 3.0 Magnesium 2.1 Iron 41 L TIBC 122 L Iron Saturation 33 Unsat Iron Binding 81 L Total Bilirubin 2.8 H AST 14 ALT < 7 L Alkaline Phosphatase 49 Total Protein 5.4 L Albumin 3.5 Globulin 1.9 L Albumin/Globulin Ratio 1.8 Hepatitis A IgM Ab Hep Bs Antigen Hep B Core IgM Ab Hepatitis C Antibody Misc Test Result Platelets confirmed ABG Interpretation ABG results: 08/14/24 08/14/24 08:25 15:20 ABG pH 7.40 ABG pCO2 35 ABG pO2 70 L ABG HCO3 22 ABG O2 Saturation 95 ABG Base Excess -2 VBG pH 7.36 VBG pCO2 40 VBG pO2 47 VBG Base Excess -3 Quality Measures Quality Measures none Advance care planning discussed with:: patient Assessment & Plan Assessment Current Active Medications: Generic Name Dose Route Start Last Admin Trade Name Freq PRN Reason Stop Dose Admin Acetaminophen 650 mg 08/14/24 19:35 08/16/24 00:42 Acetaminophen 325 Mg Tablet PO 09/13/24 14:53 650 mg Q6H PRN Administration Fever >100.4 or pain Dextrose 50 ml 08/14/24 15:04 Dextrose 50%-Water Inj 50 Ml Syringe IV 09/13/24 15:03 Q15MIN PRN BG <50 OR BG <70 & pt unresponsive Ferrous Sulfate 325 mg 08/15/24 07:15 08/17/24 08:29 Ferrous Sulf 325 Mg Tablet PO 09/14/24 07:14 325 mg QOD WAYNE Administration Glucagon 1 mg 08/14/24 15:04 Glucagon Inj 1 Mg Vial IM Q15MIN PRN BG <70, and no IV access Octreotide Acetate 1,000 mcg/ 102 mls @ 5.1 mls/hr 08/15/24 12:00 08/17/24 04:30 Sodium Chloride IV 09/14/24 11:59 50 mcg/hr .Q20H WAYNE 5.1 mls/hr Administration Protocol 50 MCG/HR Albumin Human 25 gm in 100 mls @ 100 mls/hr 08/15/24 07:00 08/17/24 05:12 Albuminar-25 Ivpb IV 08/18/24 06:59 100 mls/hr Q6HR WAYNE Administration Ceftriaxone Sodium/Dextrose 2 gm in 50 mls @ 100 mls/hr 08/17/24 09:00 08/17/24 08:29 Rocephin/D5w 2gm IV 08/24/24 08:59 100 mls/hr QDAY WAYNE Administration Insulin Glargine 20 unit 08/16/24 21:00 08/16/24 21:24 Insulin Glargine (Lantus) 5 Unit/0.05 Ml (Per 5 Units) SC 09/15/24 20:59 20 unit HS WAYNE Administration Insulin Human Lispro 0 unit 08/16/24 17:00 08/17/24 07:11 Insulin Lispro (Admelog) 1 Unit/0.01 Ml Unit SC 09/15/24 16:59 Not Given AC WAYNE Protocol Insulin Human Lispro 5 unit 08/16/24 17:00 08/17/24 07:11 Insulin Lispro (Admelog) 1 Unit/0.01 Ml Unit SC 09/15/24 16:59 Not Given [facility] Lidocaine 1 patch 08/16/24 15:32 Lidocaine 5% 1 Patch TOP 09/15/24 15:31 UD PRN LT shoulder Pain Menthol/Methyl Salicylate 1 appl 08/16/24 08:36 08/17/24 00:02 Methyl Salic/Menthol Oint 28 Gm Tube TOP 09/15/24 08:35 1 applicatio QID PRN Administration ARTHRITIS Midodrine 10 mg 08/16/24 15:38 Midodrine 5 Mg Tablet PO 09/15/24 21:59 TID PRN SBP <99 Ondansetron HCl 4 mg 08/14/24 14:54 Ondansetron Inj 2 Mg/Ml Inj 2 Ml IVP 09/13/24 14:53 Q6H PRN NAUSEA OR VOMITING Protocol Pantoprazole Sodium 40 mg 08/14/24 21:00 08/17/24 08:29 Pantoprazole Inj 40 Mg Vial IVP 09/13/24 20:59 40 mg BID WAYNE Administration Plan 63-year-old female with past medical history of diabetes, cryptogenic cirrhosis brought over to the unit for further management of her shock #Decompensated liver cirrhosis with ascites #Thrombocytopenia Child Marshall score of 10 placing the patient at exceed class with life expectancy 1 to 3 years and an abdominal surgery perioperative mortality of 82% MELD?NA score?24 for the corrected sodium of 137 due to hyperglycemia placing the patient had a 14 to 15% 90-day mortality Status post paracentesis for ascites which showed peritoneal fluid color yellow, WBC 2740, RBC 1000, polynuclear WBC 82, total protein less than 2, albumin less than 1.0, LDH 297, peritoneal glucose 190, peritoneal amylase less than 20 and serum total protein of 4.8 Blood cultures no growth within 48 hours Hepatitis panel negative Plan: 2 g IV ceftriaxone for SBP noted on pleural fluid analysis Continue octreotide drip Continue albumin 25 gm Q6HRs Will hold lactulose at this time and restart when appropriate Will consider starting beta-doyle and diuretics once renal function improves as noted below #Hepatorenal syndrome type II #Acute kidney injury Prerenal in the setting of hepatorenal syndrome Patient's baseline creatinine is 1.0 when she presented with a creatinine of 2.3 Started on octreotide drip, will titrate down as tolerated and as we come down from midodrine and Levophed support Plan: Will start Aldactone 50mg daily Nephrology consulted, appreciate recommendations Continue albumin as above Will consider diuretics pending nephrology recommendations Monitor electrolytes and replete as necessary #Shock, resolved #Aortic stenosis Likely secondary to distributive shock in the setting of decompensated liver cirrhosis secondary Septic shock less likely but possible as patient has remained afebrile but pleural fluid shows signs of SBP with elevated WBC Echocardiogram shows Normal LVsize and wall thickness. Estimated EF 65%. The RV is normal in size and systolic function. Moderately increased LA volume 39 mL/m?. [id number] MR. Moderate thickening of the AV. Mild to moderate , mean gradient 18 mmHg, JORGE 1 cm?. There is mild TR and PI. Inferior vena cava not well visualized. Patient status post IV pressors and paracentesis for ascites Plan: Monitor on telemetry Continue midodrine 15 mg PO Q6HRs with holding parameters #Insulin-dependent type 2 diabetes Patient takes insulin at home and she presented with a glucose of 635 with an A1c of 9.1 Total insulin received 32 units (10 glargine and 22 lantus) Plan: Continue sliding Scale Glargine 20 units HS, Lispro 5 units Premeal low carb consistent & low sodium #Anemia of chronic disease Likely due to anemia of chronic disease as patient has cirrhosis. Hemoglobin 9.5 No signs of active bleed at this time Will hold chemical prophylaxis at this time as patient is coagulopathic with a low platelet count Iron panel shows: Iron of 23, TIBC 179, iron saturation 12%, ferritin 128 Plan: Iron Tablets every other day Hospital Management: FEN: low carb consistent-low salt, octreotide drip, referral to registered dietitian DVT PPx: SCDs GI PPx: Protonix IV twice daily IV lines: Peripheral IVs Pugh: YES Code Status: Full code Dispo: Nephrology consulted for HRS type I, monitoring for acute decompensated liver cirrhosis Patient seen and examined with attending Dr. Kimberly Leiva, PGY-1 Attending Provider Attestation/Addendum Maria T Samaniego, , attest that I was physically present for the lerma portions of the service and evaluated the patient with the resident and I reviewed and discussed the case with the resident and agree with the resident's findings and plans of care as documented above Patient seen and evaluated this AM. She states that she is feeling improved. She denies any abdominal pain, fevers, chills, dysuria, chest pain or shortness of breath. She remains on 1L/NC. Will have physical therapy work with patient today. Renal function improved. Nephrology recommends to start patient on spironolactone. Abdomen is soft and nontender to palpation, trace edema in b/l LE.
[2024-08-17] MEDS: INSULIN LISPRO (AdmeLOG) 1 UNIT/0.01 ML UNIT 5 UNIT SC ×2 (12:02→16:19)
[2024-08-17] MEDS: INSULIN LISPRO (AdmeLOG) 1 UNIT/0.01 ML UNIT SC ×2 (12:03→16:18)
[2024-08-17] MEDS: SPIRONOLACTONE 25 MG TABLET 50 MG PO (12:04)
--- NOTE | 2024-08-17 14:20 | PC.PT ---
Patient is safe to ambulate to the bathroom with 1 staff assist, a FWW and the O2 for safety. RN made aware.
--- NOTE | 2024-08-17 14:50 | PC.CC ---
Signed orders for Freestyle Nely 3 Plus sensors and Freestyle Nely 3 reader submitted to [facility] via [employer] platform.
[2024-08-17] MEDS: INSULIN GLARGINE (Lantus) 5 UNIT/0.05 ML (PER 5 UNITS) 20 UNIT SC (20:48)
[2024-08-18] VITALS (17 sets, daily range): BP systolic 132–184; BP diastolic 59–108; PULSE 75–120; RESP 18–95; TEMP 36.3–37.2; O2SAT 81–97; BMI 31.4
[2024-08-18] MEDS: ALBUMIN HUMAN 25% IVPB 25 GM/100 ML BTL IV ×2 (01:28→06:18)
[2024-08-18] MEDS: OCTREOTIDE ACET INJ 1,000 MCG in SODIUM CHLORIDE 0.9% 100 ML 5.1 MCG IV ×2 (01:29→18:38)
[2024-08-18 06:14] LABS: Basophils % (Auto) 0 % (0-2.5); Eosinophils % (Auto) 1 % (0-10); Hematocrit 22.6 % (36.0-46.0); Immature Granulocytes % (Auto) 1 % (0-0); Immature Granulocytes Auto 0.02 Thou/mm3 (0.00-0.00); Lymphocytes # (Auto) 0.6 Thou/mm3 (1.0-4.8); Lymphocytes % (Auto) 19 % (10-50); Mean Corpuscular HGB Conc 34.5 g/dl (31.0-37.0); Mean Corpuscular Hemoglobin 33.3 pg (25.0-35.0); Mean Corpuscular Volume 97 fL (80-100); Monocytes # (Auto) 0.6 Thou/mm3 (0.0-0.8); Monocytes % (Auto) 17 % (0-12); Neutrophils % (Auto) 62 % (37-80); Nucleated Red Blood Cell % 0 /100 WBC (0); Red Blood Count 2.34 Miln/mm3 (4.00-5.20); White Blood Count 3.3 Thou/mm3 (3.6-11.0)
[2024-08-18 06:32] LABS: Hemoglobin 7.8 g/dL (12.0-16.0)
[2024-08-18 06:34] LABS: Platelet Count 49 Thou/mm3 (140-440)
[2024-08-18 06:55] LABS: Alanine Aminotransferase < 7 U/L (10-49); Albumin, Serum 3.8 gm/dL (3.4-4.8); Albumin/Globulin Ratio 2.5 (1.2-2.2); Alkaline Phosphatase 42 U/L (46-116); Anion Gap 10 (7-16); Aspartate Amino Transferase 18 U/L (0-34); BUN/Creatinine Ratio 22 Ratio (12-20); Bilirubin,Total 3.5 mg/dL (0.3-1.2); Blood Urea Nitrogen 26 mg/dL (9-23); Calcium 8.4 mg/dL (8.3-10.6); Calcium (Corrected) 8.6 mg/dL (8.5-10.1); Chloride 107 mMol/L (98-107); Creatinine (Component) 1.2 mg/dL (0.6-1.3); Estimated Creatinine Clearance 43.4 mL/min (>60); Globulin 1.5 gm/dL (2.3-3.5); Glucose 116 mg/dL (74-106); Magnesium 1.5 mg/dL (1.6-2.6); Osmolality,Calculated 285 (275-295); Phosphorous 1.7 mg/dL (2.4-5.1); Potassium 4.6 mMol/L (3.4-5.1); Sodium 140 mMol/L (136-145); Total Protein 5.3 gm/dL (5.7-8.2); eGFR 50 See Note
[2024-08-18] MEDS: PANTOPRAZOLE INJ 40 MG VIAL IVP ×2 (08:41→20:54)
[2024-08-18] MEDS: Magnesium Sulfate 4 GM Ivpb 4 GM/50 ML BAG IV (08:42)
[2024-08-18] MEDS: NAPH,KPH MBDB 1 PACKET (1.5 GM) PO ×2 (08:42→20:54)
[2024-08-18] MEDS: SPIRONOLACTONE 25 MG TABLET 50 MG PO (08:42)
[2024-08-18] MEDS: cefTRIAXone/D5w 2gm 2 GM/50 ML BAG IV (08:43)
[2024-08-18 09:12] LABS: Slide Review Platelets confirmed
--- NOTE | 2024-08-18 09:15 | CHAP ---
Rapid response call. Prayed outside room and then followed up after giving encouragement and prayer to patient and her .
--- NOTE | 2024-08-18 09:20 | XR_ITS ---
Dissemination: AP chest single view TECHNIQUE: AP portable semiupright chest single view Date and time: August 18, 2024 0937 hours Comparison August 14, 2024 INDICATIONS: Increasing shortness of breath beginning 3 days ago. FINDINGS: Bilateral lung opacity consistent with pneumonia Mild prominence left ventricle with moderate vascular congestion Possible moderate right pleural effusion Prominent osteopenia IMPRESSION: Diffuse significant bilateral pneumonia
--- NOTE | 2024-08-18 09:29 | EVENTNT_ITS ---
Documentation for date of: 08/18/24 Event Note Event Note: 08/18/2024: Rapid response called sometime around 9 AM for patient to 62, 63-year-old female with cryptogenic cirrhosis and insulin-dependent type 2 diabetes exhibiting desaturation event with oxygen saturations at 80-83% initial ly on minimal supplemental oxygen. Patient seen and assessed with airway/breathing/circulation intact and upon the patient being examined her saturations improved to low 90s with an increase in supplemental oxygen to 11 L oxy mask. Patient is having desaturation events when she is moved or having bowel movements; moreover, otherwise oxygen saturations have been stable. Chest x-ray ordered, lactic acid shows mild elevation in the patient given a x 1 dose of Lasix 40 mg. There is likely some degree of hepatopulmonary syndrome and portal pulmonary hypertension as exhibited from echo findings. Patient will benefit from transplant consultation once she is stable to be discharged. Will continue to monitor for any acute changes. Olu Leiva, PGY-1
[2024-08-18 09:37] LABS: Lactate (Lactic Acid) 2.6 mMol/L (0.4-2.0)
[2024-08-18] MEDS: FUROSEMIDE INJ 10 MG/ML 4ML VIAL 40 MG IVP (10:06)
[2024-08-18] MEDS: ferumoxytoL (NON-ESRD) 510 MG in SODIUM CHLORIDE 0.9% 100 ML 234 MG IV (10:08)
--- NOTE | 2024-08-18 10:10 | PC.NURSE ---
Called to pharmacy for procrit x2
[2024-08-18] MEDS: INSULIN LISPRO (AdmeLOG) 1 UNIT/0.01 ML UNIT SC ×2 (11:34→16:38)
[2024-08-18 11:45] LABS: Hematocrit 23.9 % (36.0-46.0)
[2024-08-18 11:59] LABS: Hemoglobin 7.9 g/dL (12.0-16.0)
[2024-08-18 12:35] LABS: Reflex Lactate? Y
--- NOTE | 2024-08-18 13:02 | ESPR_ITS ---
<Statement entered by William Miller MD - 08/18/24 16:50> Patient examined and case discussed with the team including attending physician. Note reviewed, I agree with the care plan as documented. Ms Charlton is a 63-year-old female with past medical history of diabetes, cryptogenic cirrhosis admitted for decompensated liver cirrhosis with ascites. Child Marshall score of 10 placing the patient at exceed class with life expectancy 1 to 3 years and an abdominal surgery perioperative mortality of 82%. MELD?NA score?24 for the corrected sodium of 137 due to hyperglycemia placing the patient had a 14 to 15% 90-day mortality. Patient was admitted to ICU for low MAP, and started on vasopressors to perform paracentesis for ascites, total output 6.2L, repleted with 50g albumin. Analysis showed peritoneal fluid color yellow, WBC 2740, RBC 1000, polynuclear WBC 82, total protein less than 2, albumin less than 1.0, LDH 297, peritoneal glucose 190, peritoneal amylase less than 20 and serum total protein of 4.8, Hepatitis panel negative. Blood cultures no growth within 48 hours. Acute kidney injury, likely hepatorenal syndrome type II, has now resolved. she does have severe aortic stenosis as noted on echocardiogram, estimated EF 65%. Plan: 2 g IV ceftriaxone for SBP. Discontinue midodrine, started Carvedilol for BP and portal hypertension management. On Lasix 20mg daily. Patient aware that she will need to follow-up with GI specialist for transplant initiation. Also started on Glargine 20 units HS + Lispro 5 units AC + low carb consistent diet for blood glucose control. Please refer to the note below for further details. - William Miller MD, PGY 2 Disclaimer: The document may contain phonetic/typographic errors due to voice recognition software. These errors are purely due to imperfections in the software program. Documentation for date of: 08/18/24 Subjective Subjective Interval history: 08/18/2024: No acute overnight events to report. Patient did have a rapid response as noted in the event note charted. Patient seen and assessed afterwards is currently on minimal supplemental oxygenation needs and denies having any concerning symptoms at this time. Patient's lactic acid has downtrended and hemoglobin is stable on repeat H&H. Will continue treating patient with ceftriaxone 2 g for SBP and initiated Coreg 3.125 for esophageal varices prophylaxis. Will continue also diuresing the patient as there is likely some degree of hepatopulmonary syndrome along with portal hypertension. As per nephrology, the patient can be discharged with Procrit and iron supplementation for the iron deficiency anemia/anemia of chronic disease. Will continue to monitor the patient expect discharge within next 24 to 48 hours. Exam Vital Signs Temp Pulse Resp BP Pulse Ox O2 Del Method O2 Flow Rate 98.9 F 90 18 139/68 H 95 Nasal Cannula 2 08/18/24 12:00 08/18/24 12:00 08/18/24 12:00 08/18/24 12:00 08/18/24 12:00 08/18/24 12:00 08/18/24 12:00 FiO2 91 08/16/24 09:00 Narrative Exam Physical Exam: GENERAL: Awake, answering questions appropriately, appears stated age HEENT: NC/AT. Moist mucosa. PERRLA/EOMI. CARDIO: Heart RRR, no obvious murmurs, no JVD. PULM: No coughing or visible SOB. Lungs CTA B/L. GI: Abdomen soft, mildly distended, no fluid wave noted, hypoactive bowel sounds , no guarding or rebound tenderness. SKIN/MSK/EXT: non-pitting edema bilaterally on lower extremities. No wounds/discoloration/rashes/amputations. +Pedal pulses present B/L. NEURO: Oriented x3, Moves extremities x4, no focal neurologic deficits noted Objective Labs 08/19/24 05:29 08/19/24 05:29 Labs: Laboratory Results - last 24 hr 08/18/24 08/18/24 08/18/24 05:45 09:34 11:28 WBC 3.3 L RBC 2.34 L Hgb 7.8 L 7.9 L Hct 22.6 L 23.9 L MCV 97 MCH 33.3 MCHC 34.5 RDW Std Deviation 57.0 H Plt Count 49 L Neut % (Auto) 62 Lymph % (Auto) 19 [place] % (Auto) 17 H Eos % (Auto) 1 Baso % (Auto) 0 Neut # (Auto) 2.0 Lymph # (Auto) 0.6 L [place] # (Auto) 0.6 Eos # (Auto) 0.0 Baso # (Auto) 0.0 Immature Gran # (Auto) 0.02 H Absolute Nucleated RBC 0.00 Immature Gran % 1 H Nucleated RBC % 0 Sodium 140 Potassium 4.6 Chloride 107 Carbon Dioxide 23.0 Anion Gap 10 BUN 26 H Creatinine 1.2 D Estim Creat Clear Calc 43.4 L eGFR 50 L BUN/Creatinine Ratio 22 H Glucose 116 H Calculated Osmolality 285 Lactic Acid 2.6 H Calcium 8.4 Corrected Calcium 8.6 Phosphorus 1.7 L Magnesium 1.5 L Total Bilirubin 3.5 H D AST 18 ALT < 7 L Alkaline Phosphatase 42 L Total Protein 5.3 L Albumin 3.8 Globulin 1.5 L Albumin/Globulin Ratio 2.5 H Misc Test Result Platelets confirmed ABG Interpretation ABG results: 08/14/24 08/14/24 08:25 15:20 ABG pH 7.40 ABG pCO2 35 ABG pO2 70 L ABG HCO3 22 ABG O2 Saturation 95 ABG Base Excess -2 VBG pH 7.36 VBG pCO2 40 VBG pO2 47 VBG Base Excess -3 Quality Measures Quality Measures VTE prophylaxis Advance care planning discussed with:: patient Assessment & Plan Assessment Current Active Medications: Generic Name Dose Route Start Last Admin Trade Name Freq PRN Reason Stop Dose Admin Acetaminophen 650 mg 08/14/24 19:35 08/16/24 00:42 Acetaminophen 325 Mg Tablet PO 09/13/24 14:53 650 mg Q6H PRN Administration Fever >100.4 or pain Carvedilol 3.125 mg 08/18/24 17:30 Carvedilol 3.125 Mg Tablet PO 09/17/24 17:29 BIDWM WAYNE Dextrose 50 ml 08/14/24 15:04 Dextrose 50%-Water Inj 50 Ml Syringe IV 09/13/24 15:03 Q15MIN PRN BG <50 OR BG <70 & pt unresponsive Epoetin Pramod 10,000 unit 08/18/24 14:00 Epoetin Pramod Inj 1,000 Unit/0.05 Ml Unit SC 08/18/24 14:01 X1 ONE Ferrous Sulfate 325 mg 08/15/24 07:15 08/17/24 08:29 Ferrous Sulf 325 Mg Tablet PO 09/14/24 07:14 325 mg QOD WAYNE Administration Glucagon 1 mg 08/14/24 15:04 Glucagon Inj 1 Mg Vial IM Q15MIN PRN BG <70, and no IV access Ceftriaxone Sodium/Dextrose 2 gm in 50 mls @ 100 mls/hr 08/17/24 09:00 08/18/24 08:43 Rocephin/D5w 2gm IV 08/24/24 08:59 100 mls/hr QDAY WAYNE Administration Octreotide Acetate 1,000 mcg/ 102 mls @ 5.1 mls/hr 08/17/24 19:45 08/18/24 01:29 Sodium Chloride IV 09/14/24 11:59 50 mcg/hr .Q20H WAYNE 5.1 mls/hr Administration Protocol 50 MCG/HR Insulin Glargine 20 unit 08/16/24 21:00 08/17/24 20:48 Insulin Glargine (Lantus) 5 Unit/0.05 Ml (Per 5 Units) SC 09/15/24 20:59 20 unit HS WAYNE Administration Insulin Human Lispro 0 unit 08/16/24 17:00 08/18/24 11:34 Insulin Lispro (Admelog) 1 Unit/0.01 Ml Unit SC 09/15/24 16:59 2 unit AC WAYNE Administration Protocol Insulin Human Lispro 5 unit 08/16/24 17:00 08/18/24 11:35 Insulin Lispro (Admelog) 1 Unit/0.01 Ml Unit SC 09/15/24 16:59 Not Given AC WAYNE Lidocaine 1 patch 08/16/24 15:32 Lidocaine 5% 1 Patch TOP 09/15/24 15:31 UD PRN LT shoulder Pain Menthol/Methyl Salicylate 1 appl 08/16/24 08:36 08/17/24 00:02 Methyl Salic/Menthol Oint 28 Gm Tube TOP 09/15/24 08:35 1 applicatio QID PRN Administration ARTHRITIS Ondansetron HCl 4 mg 08/14/24 14:54 Ondansetron Inj 2 Mg/Ml Inj 2 Ml IVP 09/13/24 14:53 Q6H PRN NAUSEA OR VOMITING Protocol Pantoprazole Sodium 40 mg 08/14/24 21:00 08/18/24 08:41 Pantoprazole Inj 40 Mg Vial IVP 09/13/24 20:59 40 mg BID WAYNE Administration Potassium Phos/Sodium Phos 1 packet 08/18/24 09:00 08/18/24 08:42 Naph,Kph Mbdb 1 Packet (1.5 Gm) PO 09/17/24 08:59 1 packet BID WAYNE Administration Spironolactone 50 mg 08/17/24 11:15 08/18/24 08:42 Spironolactone 25 Mg Tablet PO 09/16/24 11:14 50 mg QDAY WAYNE Administration Plan 63-year-old female with past medical history of diabetes, cryptogenic cirrhosis brought over to the unit for further management of her shock #Decompensated liver cirrhosis with ascites #Hepatopulmonary syndrome? #Portal hypertension #Thrombocytopenia Child Marshall score of 10 placing the patient at exceed class with life expectancy 1 to 3 years and an abdominal surgery perioperative mortality of 82% MELD?NA score?24 for the corrected sodium of 137 due to hyperglycemia placing the patient had a 14 to 15% 90-day mortality Status post paracentesis for ascites which showed peritoneal fluid color yellow, WBC 2740, RBC 1000, polynuclear WBC 82, total protein less than 2, albumin less than 1.0, LDH 297, peritoneal glucose 190, peritoneal amylase less than 20 and serum total protein of 4.8 Blood cultures no growth within 48 hours Hepatitis panel negative Plan: 2 g IV ceftriaxone for SBP noted on pleural fluid analysis Continue octreotide drip Will hold lactulose at this time and restart when appropriate Lasix 40mg IV qday Coreg 3.125mg PO BID for esophageal varices prophylaxis Patient aware that she will need to follow-up with GI specialist for transplant initiation #Hepatorenal syndrome type II #Acute kidney injury Prerenal in the setting of hepatorenal syndrome Patient's baseline creatinine is 1.0 when she presented with a creatinine of 2.3 Started on octreotide drip, will titrate down as tolerated and as we come down from midodrine and Levophed support Plan: Continue Aldactone 50mg daily Nephrology consulted, appreciate recommendations Initiated Lasix as above Monitor electrolytes and replete as necessary #Shock, resolved #Aortic stenosis Likely secondary to distributive shock in the setting of decompensated liver cirrhosis secondary Septic shock less likely but possible as patient has remained afebrile but pleural fluid shows signs of SBP with elevated WBC Echocardiogram shows Normal LVsize and wall thickness. Estimated EF 65%. The RV is normal in size and systolic function. Moderately increased LA volume 39 mL/m?. [id number] MR. Moderate thickening of the AV. Mild to moderate , mean gradient 18 mmHg, JORGE 1 cm?. There is mild TR and PI. Inferior vena cava not well visualized. Patient status post IV pressors and paracentesis for ascites Plan: Monitor on telemetry Continue midodrine 15 mg PO Q6HRs with holding parameters #Insulin-dependent type 2 diabetes Patient takes insulin at home and she presented with a glucose of 635 with an A1c of 9.1 Total insulin received 32 units (10 glargine and 22 lantus) Plan: Continue sliding Scale Glargine 20 units HS, Lispro 5 units Premeal low carb consistent & low sodium #Anemia of chronic disease Likely due to anemia of chronic disease as patient has cirrhosis. Hemoglobin 9.5 No signs of active bleed at this time Will hold chemical prophylaxis at this time as patient is coagulopathic with a low platelet count Iron panel shows: Iron of 23, TIBC 179, iron saturation 12%, ferritin 128 Plan: Procrit and iron supplementation as per nephrology recommendations Hospital Management: FEN: low carb consistent-low salt DVT PPx: SCDs GI PPx: Protonix IV twice daily IV lines: Peripheral IVs Pugh: YES Code Status: Full code Dispo: Monitoring for acute decompensated liver cirrhosis, IV diuretics Patient seen and examined with attending Dr. Kimberly Leiva, PGY-1 Attending Provider Attestation/Addendum Maria T Samaniego, , attest that I was physically present for the lerma portions of the service and evaluated the patient with the resident and I reviewed and discussed the case with the resident and agree with the resident's findings and plans of care as documented above Patient seen and evaluated this a.m. Renal function has much improved. However, rapid response was called this morning due to shortness of breath. Patient is very short of breath on exertion. Patient desaturated into the 80s after using bedpan. Chest x-ray shows vascular congestion. Will start patient on Lasix in addition to Aldactone. Blood pressure is much improved. Patient started on beta-doyle for esophageal varices. Will continue to trend H&H. No blood in stool noted. If downtrending, may consider GI consult. Respiratory status improved with lasix. Continue with current management.
--- NOTE | 2024-08-18 13:02 | ESPR_ITS ---
Documentation for date of: 08/18/24 Subjective Subjective Interval history: Ms. Charlton is a 63-year-old female with past medical history of diabetes, cryptogenic cirrhosis presented to the ED due to shortness of breath that has progressively been getting worse and is associated with palpitations. Patient also states having bilateral leg swelling onset of about 2 months ago that has progressively worsened anasarcic. Patient also noted to have decrased po intake for the past few weeks. Patient arrived to the ER blood pressure of 56/37, HR 64, and was requiring Levophed via peripheral lines and was given IV fluids boluses and has current MAP above 65. Denies fever, chills, chest pain, nausea, vomiting, recent travel, sick contacts. Patient admitted for anasarca. ED COURSE: ED vitals: BP 56/37, HR 64, RR 20, saturating 97% on room air ED labs: Normocytic anemia, thrombocytopenia, coagulopathic, hyponatremic, hypochloremic, creatinine 2.3, glucose 635, A1c 9.1, lactic acid 2.3 and trending up, magnesium 1.3, T. bili 2.9, alk phos 185, BNP 305, procalcitonin 1.36 ED Tx: Midodrine, 250 mL NS bolus x 2, albumin 25 x 3, NS bolus 500 mL, lispro 7 units, Levophed, lispro 10 units x 1 glargine 10 units x 1 Patient was upgraded to ICU for pressor support, downgraded after improvement. Was determined to have spontaneous bacterial peritonitis, appropriate treatment was initiated. BP still soft, patient given octreotide, albumin, midodrine. Patient presented with elevated creatinine, 2.3 compared to baseline of 1.2, EGFR 23 compared to baseline 50. Concern for hepatorenal syndrome in the setting of acute decompensated liver failure with spontaneous bacterial peritonitis, nephrology consulted. Patient did show improvement in kidney function with midodrine and albumin support. Remains edematous with notable ascites, nontender. Denied fever, chills, chest pain, nausea, vomiting, reported good urinary output. 3.3 L urinary output over past 24 hours. WBC 4.1, hemoglobin 8.3, sodium 136, potassium 4.5, bicarb 22.5, BUN 29, creatinine 1.8, EGFR 31. Agree with current management, close monitoring. Recommend adding Aldactone. Probable IGNACIO due to ischemia secondary to severe hypotension. 08/18/2024: Patient seen and examined at bedside, resting comfortably. Remains edematous, but improved. Had a rapid response for shortness of breath, crackles heard on exam, CXR showed increased vascular congestion. 40mg Lasix IV x1 given. 3.7 L urinary output. WBC 3.3, Hg 7.8, platelets 49. Na 140, K 4.6, bicarb 23, BUN 26, creatinine 1.2, eGFR 50. Phos 1.7, Mg 1.5, repleted. Recommend starting beta-doyle for tachycardia and variceal prophylaxis, continue spirinolactone. Exam Vital Signs Temp Pulse Resp BP Pulse Ox O2 Del Method O2 Flow Rate 98.9 F 90 18 139/68 H 95 Nasal Cannula 2 08/18/24 12:00 08/18/24 12:00 08/18/24 12:00 08/18/24 12:00 08/18/24 12:00 08/18/24 12:00 08/18/24 12:00 FiO2 91 08/16/24 09:00 Narrative Exam PE: Gen: Well-developed and well-nourished. HEENT: NCAT, PERRLA, EOMI, MMM, anicteric conjunctivae. CVS: normal S1 and S2. No M/R/G. Sinus tachycardia. Resp: Mild diffuse crackles. Abd: soft, non-tender. Mild distention positive fluid wave. MSK: Good ROM in BUE & BLE. No rash. 2+ edema BLE. Neuro: CN II-XII grossly intact. Strength 5/5 in BUE & BLE. Alert and oriented x3. Psych: appropriate mood and affect. Objective Labs 08/20/24 04:52 08/20/24 04:52 Labs: Laboratory Results - last 24 hr 08/18/24 08/18/24 08/18/24 05:45 09:34 11:28 WBC 3.3 L RBC 2.34 L Hgb 7.8 L 7.9 L Hct 22.6 L 23.9 L MCV 97 MCH 33.3 MCHC 34.5 RDW Std Deviation 57.0 H Plt Count 49 L Neut % (Auto) 62 Lymph % (Auto) 19 Barnes % (Auto) 17 H Eos % (Auto) 1 Baso % (Auto) 0 Neut # (Auto) 2.0 Lymph # (Auto) 0.6 L Barnes # (Auto) 0.6 Eos # (Auto) 0.0 Baso # (Auto) 0.0 Immature Gran # (Auto) 0.02 H Absolute Nucleated RBC 0.00 Immature Gran % 1 H Nucleated RBC % 0 Sodium 140 Potassium 4.6 Chloride 107 Carbon Dioxide 23.0 Anion Gap 10 BUN 26 H Creatinine 1.2 D Estim Creat Clear Calc 43.4 L eGFR 50 L BUN/Creatinine Ratio 22 H Glucose 116 H Calculated Osmolality 285 Lactic Acid 2.6 H Calcium 8.4 Corrected Calcium 8.6 Phosphorus 1.7 L Magnesium 1.5 L Total Bilirubin 3.5 H D AST 18 ALT < 7 L Alkaline Phosphatase 42 L Total Protein 5.3 L Albumin 3.8 Globulin 1.5 L Albumin/Globulin Ratio 2.5 H Misc Test Result Platelets confirmed ABG Interpretation ABG results: 08/14/24 08/14/24 08:25 15:20 ABG pH 7.40 ABG pCO2 35 ABG pO2 70 L ABG HCO3 22 ABG O2 Saturation 95 ABG Base Excess -2 VBG pH 7.36 VBG pCO2 40 VBG pO2 47 VBG Base Excess -3 Quality Measures Quality Measures VTE prophylaxis Advance care planning discussed with:: patient Assessment & Plan Assessment Current Active Medications: Generic Name Dose Route Start Last Admin Trade Name Freq PRN Reason Stop Dose Admin Acetaminophen 650 mg 08/14/24 19:35 08/16/24 00:42 Acetaminophen 325 Mg Tablet PO 09/13/24 14:53 650 mg Q6H PRN Administration Fever >100.4 or pain Carvedilol 3.125 mg 08/18/24 17:30 Carvedilol 3.125 Mg Tablet PO 09/17/24 17:29 BIDWM WAYNE Dextrose 50 ml 08/14/24 15:04 Dextrose 50%-Water Inj 50 Ml Syringe IV 09/13/24 15:03 Q15MIN PRN BG <50 OR BG <70 & pt unresponsive Epoetin Pramod 10,000 unit 08/18/24 14:00 Epoetin Pramod Inj 1,000 Unit/0.05 Ml Unit SC 08/18/24 14:01 X1 ONE Ferrous Sulfate 325 mg 08/15/24 07:15 08/17/24 08:29 Ferrous Sulf 325 Mg Tablet PO 09/14/24 07:14 325 mg QOD WAYNE Administration Glucagon 1 mg 08/14/24 15:04 Glucagon Inj 1 Mg Vial IM Q15MIN PRN BG <70, and no IV access Ceftriaxone Sodium/Dextrose 2 gm in 50 mls @ 100 mls/hr 08/17/24 09:00 08/18/24 08:43 Rocephin/D5w 2gm IV 08/24/24 08:59 100 mls/hr QDAY WAYNE Administration Octreotide Acetate 1,000 mcg/ 102 mls @ 5.1 mls/hr 08/17/24 19:45 08/18/24 01:29 Sodium Chloride IV 09/14/24 11:59 50 mcg/hr .Q20H WAYNE 5.1 mls/hr Administration Protocol 50 MCG/HR Insulin Glargine 20 unit 08/16/24 21:00 08/17/24 20:48 Insulin Glargine (Lantus) 5 Unit/0.05 Ml (Per 5 Units) SC 09/15/24 20:59 20 unit HS WAYNE Administration Insulin Human Lispro 0 unit 08/16/24 17:00 08/18/24 11:34 Insulin Lispro (Admelog) 1 Unit/0.01 Ml Unit SC 09/15/24 16:59 2 unit AC WAYNE Administration Protocol Insulin Human Lispro 5 unit 08/16/24 17:00 08/18/24 11:35 Insulin Lispro (Admelog) 1 Unit/0.01 Ml Unit SC 09/15/24 16:59 Not Given AC WAYNE Lidocaine 1 patch 08/16/24 15:32 Lidocaine 5% 1 Patch TOP 09/15/24 15:31 UD PRN LT shoulder Pain Menthol/Methyl Salicylate 1 appl 08/16/24 08:36 08/17/24 00:02 Methyl Salic/Menthol Oint 28 Gm Tube TOP 09/15/24 08:35 1 applicatio QID PRN Administration ARTHRITIS Ondansetron HCl 4 mg 08/14/24 14:54 Ondansetron Inj 2 Mg/Ml Inj 2 Ml IVP 09/13/24 14:53 Q6H PRN NAUSEA OR VOMITING Protocol Pantoprazole Sodium 40 mg 08/14/24 21:00 08/18/24 08:41 Pantoprazole Inj 40 Mg Vial IVP 06/23/25 20:59 40 mg BID WAYNE Administration Potassium Phos/Sodium Phos 1 packet 08/18/24 09:00 08/18/24 08:42 Naph,[facility] Mbdb 1 Packet (1.5 Gm) PO 09/17/24 08:59 1 packet BID WAYNE Administration Spironolactone 50 mg 08/17/24 11:15 08/18/24 08:42 Spironolactone 25 Mg Tablet PO 09/16/24 11:14 50 mg QDAY WAYNE Administration Plan 63-year-old female with past medical history of diabetes, cryptogenic cirrhosis brought over to the unit for further management of her shock, nephrology consulted for management of IGNACIO possibly due to hepatorenal syndrome. #Acute kidney injury Likely prerenal in the setting of ischemia versus hepatorenal syndrome type II. Patient's baseline creatinine is 1.0, EGFR 50. Patient presented with a creatinine of 2.3 and EGFR 23. Patient was on pressure support due to severe hypotension, was titrated off. Started on octreotide drip, albumin and midodrine for BP support. Maintains good urinary output. Creatinine in fact improved. Rapid was called for SOB, CXR showed increased vascular congestion despite net fluid loss. IV Lasix x1 given. - Aldactone 50mg daily - Avoid nephrotoxins - Renally dose medications - Monitor daily renal function - Monitor urinary output - Follow up with Dr. De Paz 1-2 weeks after discharge #Decompensated liver cirrhosis with ascites #Sinus tachycardia #Thrombocytopenia #Shock, resolved #Aortic stenosis #Insulin-dependent type 2 diabetes #Anemia of chronic disease Management as per the primary team. Thank you for allow us to participate in the care of this patient. Plan of care discussed with attending Dr. De Paz. Wesly Lucas MD PGY?1 Attending Provider Attestation/Addendum Patient seen and examined with resident physician Dr. Coyle. Note reviewed, agree with findings and recommendations. Suspect patient in hepatorenal syndrome with marked improvement in urine output/creatinine with octreotide, midodrine, albumin. Seems to have fluid overload-will add spironolactone. Spoke to primary team.
[2024-08-18 13:08] LABS: Lactic Acid, 3 HR 1.8 mMol/L (0.4-2.0)
[2024-08-18] MEDS: EPOETIN ALFA INJ 1,000 UNIT/0.05 ML UNIT 10000 UNIT SC (14:30)
[2024-08-18] MEDS: carVEDILOL 3.125 MG TABLET PO (16:39)
[2024-08-18] MEDS: INSULIN GLARGINE (Lantus) 5 UNIT/0.05 ML (PER 5 UNITS) 20 UNIT SC (20:56)
[2024-08-19] VITALS (11 sets, daily range): BP systolic 127–145; BP diastolic 59–87; PULSE 71–87; RESP 18–28; TEMP 36.1–37; O2SAT 86–98
[2024-08-19 06:22] LABS: Basophils % (Auto) 0 % (0-2.5); Eosinophils # (Auto) 0.3 Thou/mm3 (0.0-0.5); Eosinophils % (Auto) 4 % (0-10); Hematocrit 23.8 % (36.0-46.0); Immature Granulocytes % (Auto) 2 % (0-0); Immature Granulocytes Auto 0.13 Thou/mm3 (0.00-0.00); Lymphocytes # (Auto) 1.5 Thou/mm3 (1.0-4.8); Lymphocytes % (Auto) 21 % (10-50); Mean Corpuscular HGB Conc 35.3 g/dl (31.0-37.0); Mean Corpuscular Hemoglobin 34.1 pg (25.0-35.0); Mean Corpuscular Volume 97 fL (80-100); Monocytes # (Auto) 1.2 Thou/mm3 (0.0-0.8); Monocytes % (Auto) 17 % (0-12); Neutrophils # (Auto) 3.9 Thou/mm3 (1.8-7.7); Neutrophils % (Auto) 56 % (37-80); Nucleated Red Blood Cell % 0 /100 WBC (0); RDW Standard Deviation 57.6 fL (36.4-46.3); Red Blood Count 2.46 Miln/mm3 (4.00-5.20); White Blood Count 6.9 Thou/mm3 (3.6-11.0)
[2024-08-19 06:28] LABS: Hemoglobin 8.4 g/dL (12.0-16.0); Platelet Count 73 Thou/mm3 (140-440); Slide Review Platelets confirmed
[2024-08-19 06:43] LABS: Alanine Aminotransferase < 7 U/L (10-49); Albumin, Serum 3.5 gm/dL (3.4-4.8); Albumin/Globulin Ratio 2.1 (1.2-2.2); Alkaline Phosphatase 47 U/L (46-116); Anion Gap 10 (7-16); Aspartate Amino Transferase 21 U/L (0-34); BUN/Creatinine Ratio 25 Ratio (12-20); Blood Urea Nitrogen 28 mg/dL (9-23); Calcium 8.4 mg/dL (8.3-10.6); Calcium (Corrected) 8.8 mg/dL (8.5-10.1); Carbon Dioxide 24.8 mMol/L (20.0-31.0); Chloride 105 mMol/L (98-107); Creatinine (Component) 1.1 mg/dL (0.6-1.3); Estimated Creatinine Clearance 46.9 mL/min (>60); Globulin 1.7 gm/dL (2.3-3.5); Glucose 108 mg/dL (74-106); Magnesium 1.7 mg/dL (1.6-2.6); Osmolality,Calculated 285 (275-295); Potassium 4.4 mMol/L (3.4-5.1); Sodium 140 mMol/L (136-145); Total Protein 5.2 gm/dL (5.7-8.2); eGFR 56 See Note
[2024-08-19] MEDS: NAPH,KPH MBDB 1 PACKET (1.5 GM) PO ×2 (08:10→20:39)
[2024-08-19] MEDS: PANTOPRAZOLE INJ 40 MG VIAL IVP ×2 (08:11→20:38)
[2024-08-19] MEDS: FUROSEMIDE INJ 10 MG/ML 4ML VIAL 40 MG IVP (08:11)
[2024-08-19] MEDS: carVEDILOL 3.125 MG TABLET PO ×2 (08:11→16:52)
[2024-08-19] MEDS: SPIRONOLACTONE 25 MG TABLET 50 MG PO (08:11)
[2024-08-19] MEDS: FERROUS SULF 325 MG TABLET PO (08:11)
[2024-08-19] MEDS: cefTRIAXone/D5w 2gm 2 GM/50 ML BAG IV (08:12)
--- NOTE | 2024-08-19 08:57 | ESPR_ITS ---
Documentation for date of: 08/19/24 Subjective Subjective Interval history: Ms. Charlton is a 63-year-old female with past medical history of diabetes, cryptogenic cirrhosis presented to the ED due to shortness of breath that has progressively been getting worse and is associated with palpitations. Patient also states having bilateral leg swelling onset of about 2 months ago that has progressively worsened anasarcic. Patient also noted to have decrased po intake for the past few weeks. Patient arrived to the ER blood pressure of 56/37, HR 64, and was requiring Levophed via peripheral lines and was given IV fluids boluses and has current MAP above 65. Denies fever, chills, chest pain, nausea, vomiting, recent travel, sick contacts. Patient admitted for anasarca. ED COURSE: ED vitals: BP 56/37, HR 64, RR 20, saturating 97% on room air ED labs: Normocytic anemia, thrombocytopenia, coagulopathic, hyponatremic, hypochloremic, creatinine 2.3, glucose 635, A1c 9.1, lactic acid 2.3 and trending up, magnesium 1.3, T. bili 2.9, alk phos 185, BNP 305, procalcitonin 1.36 ED Tx: Midodrine, 250 mL NS bolus x 2, albumin 25 x 3, NS bolus 500 mL, lispro 7 units, Levophed, lispro 10 units x 1 glargine 10 units x 1 Patient was upgraded to ICU for pressor support, downgraded after improvement. Was determined to have spontaneous bacterial peritonitis, appropriate treatment was initiated. BP still soft, patient given octreotide, albumin, midodrine. Patient presented with elevated creatinine, 2.3 compared to baseline of 1.2, EGFR 23 compared to baseline 50. Concern for hepatorenal syndrome in the setting of acute decompensated liver failure with spontaneous bacterial peritonitis, nephrology consulted. Patient did show improvement in kidney function with midodrine and albumin support. Remains edematous with notable ascites, nontender. Denied fever, chills, chest pain, nausea, vomiting, reported good urinary output. 3.3 L urinary output over past 24 hours. WBC 4.1, hemoglobin 8.3, sodium 136, potassium 4.5, bicarb 22.5, BUN 29, creatinine 1.8, EGFR 31. Agree with current management, close monitoring. Recommend adding Aldactone. Probable IGNACIO due to ischemia secondary to severe hypotension. 08/18/2024: Patient seen and examined at bedside, resting comfortably. Remains edematous, but improved. Had a rapid response for shortness of breath, crackles heard on exam, CXR showed increased vascular congestion. 40mg Lasix IV x1 given. 3.7 L urinary output. WBC 3.3, Hg 7.8, platelets 49. Na 140, K 4.6, bicarb 23, BUN 26, creatinine 1.2, eGFR 50. Phos 1.7, Mg 1.5, repleted. Recommend starting beta-doyle for tachycardia and variceal prophylaxis, continue spirinolactone. 08/19/2024: Patient seen examined at bedside, resting comfortably. Patient improved from yesterday, denies shortness of breath, chest pain, nausea, vomiting. Edema significantly improved from yesterday. Patient saturating well on room air. 3.5 L urinary output overnight. WBC 6.9, hemoglobin 8.4, sodium 140, potassium 4.4, bicarb 24.8, BUN 28, creatinine 1.1, EGFR 56. Patient cleared for discharge from nephrology perspective. Exam Vital Signs Temp Pulse Resp BP Pulse Ox O2 Del Method O2 Flow Rate 97.4 F 76 20 136/75 H 97 Nasal Cannula 2 08/19/24 04:00 08/19/24 08:11 08/19/24 06:40 08/19/24 08:11 08/19/24 06:40 08/19/24 04:00 08/19/24 06:40 FiO2 91 08/16/24 09:00 Narrative Exam PE: Gen: Well-developed and well-nourished. HEENT: NCAT, PERRLA, EOMI, MMM, anicteric conjunctivae. CVS: normal S1 and S2. No M/R/G. Sinus tachycardia. Resp: Lungs clear to auscultation bilaterally. Abd: soft, non-tender. Mild distention positive fluid wave. MSK: Good ROM in BUE & BLE. No rash. 1+ edema BLE. Neuro: CN II-XII grossly intact. Strength 5/5 in BUE & BLE. Alert and oriented x3. Psych: appropriate mood and affect. Objective Labs 08/20/24 04:52 08/20/24 04:52 Labs: Laboratory Results - last 24 hr 08/18/24 08/18/24 08/18/24 05:45 09:34 11:28 WBC RBC Hgb 7.9 L Hct 23.9 L MCV MCH MCHC RDW Std Deviation Plt Count Neut % (Auto) Lymph % (Auto) [place] % (Auto) Eos % (Auto) Baso % (Auto) Neut # (Auto) Lymph # (Auto) [place] # (Auto) Eos # (Auto) Baso # (Auto) Immature Gran # (Auto) Absolute Nucleated RBC Immature Gran % Nucleated RBC % Sodium Potassium Chloride Carbon Dioxide Anion Gap BUN Creatinine Estim Creat Clear Calc eGFR BUN/Creatinine Ratio Glucose Calculated Osmolality Lactic Acid 2.6 H Calcium Corrected Calcium Phosphorus Magnesium Total Bilirubin AST ALT Alkaline Phosphatase Total Protein Albumin Globulin Albumin/Globulin Ratio Misc Test Result Platelets confirmed 08/18/24 08/19/24 12:54 05:29 WBC 6.9 D RBC 2.46 L Hgb 8.4 L Hct 23.8 L MCV 97 MCH 34.1 MCHC 35.3 RDW Std Deviation 57.6 H Plt Count 73 L D Neut % (Auto) 56 Lymph % (Auto) 21 Coos % (Auto) 17 H Eos % (Auto) 4 Baso % (Auto) 0 Neut # (Auto) 3.9 Lymph # (Auto) 1.5 [place]os # (Auto) 1.2 H Eos # (Auto) 0.3 Baso # (Auto) 0.0 Immature Gran # (Auto) 0.13 H Absolute Nucleated RBC 0.00 Immature Gran % 2 H Nucleated RBC % 0 Sodium 140 Potassium 4.4 Chloride 105 Carbon Dioxide 24.8 Anion Gap 10 BUN 28 H Creatinine 1.1 Estim Creat Clear Calc 46.9 L eGFR 56 L BUN/Creatinine Ratio 25 H Glucose 108 H Calculated Osmolality 285 Lactic Acid 1.8 Calcium 8.4 Corrected Calcium 8.8 Phosphorus 2.0 L Magnesium 1.7 Total Bilirubin 4.0 H D AST 21 ALT < 7 L Alkaline Phosphatase 47 Total Protein 5.2 L Albumin 3.5 Globulin 1.7 L Albumin/Globulin Ratio 2.1 Misc Test Result Platelets confirmed ABG Interpretation ABG results: 08/14/24 08/14/24 08:25 15:20 ABG pH 7.40 ABG pCO2 35 ABG pO2 70 L ABG HCO3 22 ABG O2 Saturation 95 ABG Base Excess -2 VBG pH 7.36 VBG pCO2 40 VBG pO2 47 VBG Base Excess -3 Quality Measures Quality Measures VTE prophylaxis Advance care planning discussed with:: patient Assessment & Plan Assessment Current Active Medications: Generic Name Dose Route Start Last Admin Trade Name Freq PRN Reason Stop Dose Admin Acetaminophen 650 mg 08/14/24 19:35 08/16/24 00:42 Acetaminophen 325 Mg Tablet PO 09/13/24 14:53 650 mg Q6H PRN Administration Fever >100.4 or pain Carvedilol 3.125 mg 08/18/24 17:30 08/19/24 08:11 Carvedilol 3.125 Mg Tablet PO 09/17/24 17:29 3.125 mg BIDWM WAYNE Administration Dextrose 50 ml 08/14/24 15:04 Dextrose 50%-Water Inj 50 Ml Syringe IV 09/13/24 15:03 Q15MIN PRN BG <50 OR BG <70 & pt unresponsive Ferrous Sulfate 325 mg 08/15/24 07:15 08/19/24 08:11 Ferrous Sulf 325 Mg Tablet PO 09/14/24 07:14 325 mg QOD WAYNE Administration Furosemide 40 mg 08/19/24 09:00 08/19/24 08:11 Furosemide Inj 10 Mg/Ml 4ml Vial IVP 09/18/24 08:59 40 mg QDAY WAYNE Administration Glucagon 1 mg 08/14/24 15:04 Glucagon Inj 1 Mg Vial IM Q15MIN PRN BG <70, and no IV access Ceftriaxone Sodium/Dextrose 2 gm in 50 mls @ 100 mls/hr 08/17/24 09:00 08/19/24 08:12 Rocephin/D5w 2gm IV 08/24/24 08:59 100 mls/hr QDAY WAYNE Administration Octreotide Acetate 1,000 mcg/ 102 mls @ 5.1 mls/hr 08/17/24 19:45 08/18/24 18:38 Sodium Chloride IV 09/14/24 11:59 50 mcg/hr .Q20H WAYNE 5.1 mls/hr Administration Protocol 50 MCG/HR Insulin Glargine 20 unit 08/16/24 21:00 08/18/24 20:56 Insulin Glargine (Lantus) 5 Unit/0.05 Ml (Per 5 Units) SC 09/15/24 20:59 20 unit HS WAYNE Administration Insulin Human Lispro 0 unit 08/16/24 17:00 08/19/24 07:11 Insulin Lispro (Admelog) 1 Unit/0.01 Ml Unit SC 09/15/24 16:59 Not Given AC WAYNE Protocol Insulin Human Lispro 5 unit 08/16/24 17:00 08/19/24 07:12 Insulin Lispro (Admelog) 1 Unit/0.01 Ml Unit SC 09/15/24 16:59 Not Given AC WAYNE Lidocaine 1 patch 08/16/24 15:32 Lidocaine 5% 1 Patch TOP 09/15/24 15:31 UD PRN LT shoulder Pain Menthol/Methyl Salicylate 1 appl 08/16/24 08:36 08/17/24 00:02 Methyl Salic/Menthol Oint 28 Gm Tube TOP 09/15/24 08:35 1 applicatio QID PRN Administration ARTHRITIS Ondansetron HCl 4 mg 08/14/24 14:54 Ondansetron Inj 2 Mg/Ml Inj 2 Ml IVP 09/13/24 14:53 Q6H PRN NAUSEA OR VOMITING Protocol Pantoprazole Sodium 40 mg 08/14/24 21:00 08/19/24 08:11 Pantoprazole Inj 40 Mg Vial IVP 09/13/24 20:59 40 mg BID WAYNE Administration Potassium Phos/Sodium Phos 1 packet 08/18/24 09:00 08/19/24 08:10 Naph,[facility] Mbdb 1 Packet (1.5 Gm) PO 09/17/24 08:59 1 packet BID WAYNE Administration Spironolactone 50 mg 08/17/24 11:15 08/19/24 08:11 Spironolactone 25 Mg Tablet PO 09/16/24 11:14 50 mg QDAY WAYNE Administration Plan 63-year-old female with past medical history of diabetes, cryptogenic cirrhosis brought over to the unit for further management of her shock, nephrology consulted for management of IGNACIO possibly due to hepatorenal syndrome. #Acute kidney injury Likely prerenal in the setting of ischemia versus hepatorenal syndrome type II. Patient's baseline creatinine is 1.0, EGFR 50. Patient presented with a creatinine of 2.3 and EGFR 23. Patient was on pressure support due to severe hypotension, was titrated off. Started on octreotide drip, albumin and midodrine for BP support. Maintains good urinary output. Creatinine in fact improved. Rapid was called for SOB, CXR showed increased vascular congestion despite net fluid loss. IV Lasix x1 given. Patient showed significant improvement. - Aldactone 50mg daily - Avoid nephrotoxins - Renally dose medications - Monitor daily renal function - Monitor urinary output - Follow up with Dr. De Paz 1-2 weeks after discharge - Patient cleared for discharge from nephrology perspective - Recommend voiding trial prior to discharge #Decompensated liver cirrhosis with ascites #Sinus tachycardia #Thrombocytopenia #Shock, resolved #Aortic stenosis #Insulin-dependent type 2 diabetes #Anemia of chronic disease Management as per the primary team. Thank you for allow us to participate in the care of this patient. Plan of care discussed with attending Dr. De Paz. Wesly Lucas MD PGY?1 Attending Provider Attestation/Addendum Patient seen and examined with resident physician Dr. Coyle. Note reviewed, agree with findings and recommendations. Suspect patient in hepatorenal syndrome with marked improvement in urine output/creatinine with octreotide, midodrine, albumin. Seems to have fluid overload-will add spironolactone. Spoke to primary team. Did receive Lasix yesterday and is feeling much better today.
--- NOTE | 2024-08-19 09:54 | PC.NURSE ---
Dr. Leiva aware PT Aris will see pt. this afternoon and RN and PT will walk pt. with and without oxygen. Dr. Leiva made aware that RN attempted to remove pt. oxygen for approximately two hours as pt. was tolerating without supplemental O2, but pt. then desaturated to 86% on room air while laying in bed so RN reapplied O2 at 1.5 L and pt. came up to 93%
[2024-08-19] MEDS: INSULIN LISPRO (AdmeLOG) 1 UNIT/0.01 ML UNIT SC ×2 (11:13→16:52)
--- NOTE | 2024-08-19 12:31 | PC.NURSE ---
Addendum entered by Jennifer Wharton RN 08/19/24 12:39: Per Dr. Abbie ZAPATA to do voiding trial via clamping jorgensen and then DC jorgensen if pt. passes. Original Note: started voiding trial at this time.
--- NOTE | 2024-08-19 13:09 | ESPR_ITS ---
<Statement entered by William Miller MD - 08/19/24 16:33> Patient examined and case discussed with the team including attending physician. Note reviewed, I agree with the care plan as documented. Ms Charlton is a 63-year-old female with past medical history of diabetes, cryptogenic cirrhosis admitted for decompensated liver cirrhosis with ascites. Child Marshall score of 10 placing the patient at exceed class with life expectancy 1 to 3 years and an abdominal surgery perioperative mortality of 82%. MELD?NA score?24 for the corrected sodium of 137 due to hyperglycemia placing the patient had a 14 to 15% 90-day mortality. Patient was admitted to ICU for low MAP, and started on vasopressors to perform paracentesis for ascites, total output 6.2L, repleted with 50g albumin. Analysis showed peritoneal fluid color yellow, WBC 2740, RBC 1000, polynuclear WBC 82, total protein less than 2, albumin less than 1.0, LDH 297, peritoneal glucose 190, peritoneal amylase less than 20 and serum total protein of 4.8, Hepatitis panel negative. Blood cultures no growth within 48 hours. Acute kidney injury, likely hepatorenal syndrome type II, has now resolved. Plan: Will continue inpatient for 2 more days on IV Rocephin 2g daily for supposed SBP. Will DC on 08/21/2024Friday after course completed. Family counseled at bedside, in agreement with management plan. Please refer to the note below for further details. - William Miller MD, PGY 2 Disclaimer: The document may contain phonetic/typographic errors due to voice recognition software. These errors are purely due to imperfections in the software program. Documentation for date of: 08/19/24 Subjective Subjective Interval history: 08/19/2024: No acute overnight events to report. Patient seen and examined in hospital bed on minimal oxygen requirements saturating 95+. Patient denies having any concerning symptoms at this time. Patient's nurse states that she has been having 5 bowel movements which are soft in texture but not liquid in consistency. Patient continues to be on IV ceftriaxone 2 g daily for SBP and we will continue 2 additional days. Will discontinue patient's Pugh upon voiding trial and have physical therapy continue to work with patient. Expect discharge once antibiotic regimen is completed. Exam Vital Signs Temp Pulse Resp BP Pulse Ox O2 Del Method O2 Flow Rate 97.1 F 77 18 134/67 H 95 Nasal Cannula 1.5 08/19/24 12:00 08/19/24 12:00 08/19/24 12:00 08/19/24 12:00 08/19/24 12:00 08/19/24 12:00 08/19/24 12:00 FiO2 91 08/16/24 09:00 Narrative Exam Physical Exam: GENERAL: Awake, answering questions appropriately, appears stated age HEENT: NC/AT. Moist mucosa. PERRLA/EOMI. CARDIO: Heart RRR, no obvious murmurs, no JVD. PULM: No coughing or visible SOB. Lungs CTA B/L. GI: Abdomen soft, nondistended, no fluid wave noted, borborygmi apparent, no guarding or rebound tenderness. SKIN/MSK/EXT: non-pitting edema bilaterally on lower extremities. No wounds/discoloration/rashes/amputations. +Pedal pulses present B/L. NEURO: Oriented x3, Moves extremities x4, no focal neurologic deficits noted Objective Labs 08/19/24 05:29 08/19/24 05:29 Labs: Laboratory Results - last 24 hr 08/18/24 08/19/24 12:54 05:29 WBC 6.9 D RBC 2.46 L Hgb 8.4 L Hct 23.8 L MCV 97 MCH 34.1 MCHC 35.3 RDW Std Deviation 57.6 H Plt Count 73 L D Neut % (Auto) 56 Lymph % (Auto) 21 [place] % (Auto) 17 H Eos % (Auto) 4 Baso % (Auto) 0 Neut # (Auto) 3.9 Lymph # (Auto) 1.5 [place] # (Auto) 1.2 H Eos # (Auto) 0.3 Baso # (Auto) 0.0 Immature Gran # (Auto) 0.13 H Absolute Nucleated RBC 0.00 Immature Gran % 2 H Nucleated RBC % 0 Sodium 140 Potassium 4.4 Chloride 105 Carbon Dioxide 24.8 Anion Gap 10 BUN 28 H Creatinine 1.1 Estim Creat Clear Calc 46.9 L eGFR 56 L BUN/Creatinine Ratio 25 H Glucose 108 H Calculated Osmolality 285 Lactic Acid 1.8 Calcium 8.4 Corrected Calcium 8.8 Phosphorus 2.0 L Magnesium 1.7 Total Bilirubin 4.0 H D AST 21 ALT < 7 L Alkaline Phosphatase 47 Total Protein 5.2 L Albumin 3.5 Globulin 1.7 L Albumin/Globulin Ratio 2.1 Misc Test Result Platelets confirmed ABG Interpretation ABG results: 08/14/24 08/14/24 08:25 15:20 ABG pH 7.40 ABG pCO2 35 ABG pO2 70 L ABG HCO3 22 ABG O2 Saturation 95 ABG Base Excess -2 VBG pH 7.36 VBG pCO2 40 VBG pO2 47 VBG Base Excess -3 Quality Measures Quality Measures VTE prophylaxis Advance care planning discussed with:: patient Assessment & Plan Assessment Current Active Medications: Generic Name Dose Route Start Last Admin Trade Name Freq PRN Reason Stop Dose Admin Acetaminophen 650 mg 08/14/24 19:35 08/16/24 00:42 Acetaminophen 325 Mg Tablet PO 09/13/24 14:53 650 mg Q6H PRN Administration Fever >100.4 or pain Carvedilol 3.125 mg 08/18/24 17:30 08/19/24 08:11 Carvedilol 3.125 Mg Tablet PO 09/17/24 17:29 3.125 mg BIDWM WAYNE Administration Dextrose 50 ml 08/14/24 15:04 Dextrose 50%-Water Inj 50 Ml Syringe IV 09/13/24 15:03 Q15MIN PRN BG <50 OR BG <70 & pt unresponsive Ferrous Sulfate 325 mg 08/15/24 07:15 08/19/24 08:11 Ferrous Sulf 325 Mg Tablet PO 09/14/24 07:14 325 mg QOD WAYNE Administration Furosemide 40 mg 08/19/24 09:00 08/19/24 08:11 Furosemide Inj 10 Mg/Ml 4ml Vial IVP 09/18/24 08:59 40 mg QDAY WAYNE Administration Glucagon 1 mg 08/14/24 15:04 Glucagon Inj 1 Mg Vial IM Q15MIN PRN BG <70, and no IV access Ceftriaxone Sodium/Dextrose 2 gm in 50 mls @ 100 mls/hr 08/17/24 09:00 08/19/24 08:12 Rocephin/D5w 2gm IV 08/24/24 08:59 100 mls/hr QDAY WAYNE Administration Octreotide Acetate 1,000 mcg/ 102 mls @ 5.1 mls/hr 08/17/24 19:45 08/18/24 18:38 Sodium Chloride IV 09/14/24 11:59 50 mcg/hr .Q20H WAYNE 5.1 mls/hr Administration Protocol 50 MCG/HR Insulin Glargine 20 unit 08/16/24 21:00 08/18/24 20:56 Insulin Glargine (Lantus) 5 Unit/0.05 Ml (Per 5 Units) SC 09/15/24 20:59 20 unit HS WAYNE Administration Insulin Human Lispro 0 unit 08/16/24 17:00 08/19/24 11:13 Insulin Lispro (Admelog) 1 Unit/0.01 Ml Unit SC 09/15/24 16:59 2 unit AC WAYNE Administration Protocol Insulin Human Lispro 5 unit 08/16/24 17:00 08/19/24 11:16 Insulin Lispro (Admelog) 1 Unit/0.01 Ml Unit SC 09/15/24 16:59 Not Given AC WAYNE Lidocaine 1 patch 08/16/24 15:32 Lidocaine 5% 1 Patch TOP 09/15/24 15:31 UD PRN LT shoulder Pain Menthol/Methyl Salicylate 1 appl 08/16/24 08:36 08/17/24 00:02 Methyl Salic/Menthol Oint 28 Gm Tube TOP 09/15/24 08:35 1 applicatio QID PRN Administration ARTHRITIS Ondansetron HCl 4 mg 08/14/24 14:54 Ondansetron Inj 2 Mg/Ml Inj 2 Ml IVP 09/13/24 14:53 Q6H PRN NAUSEA OR VOMITING Protocol Pantoprazole Sodium 40 mg 08/14/24 21:00 08/19/24 08:11 Pantoprazole Inj 40 Mg Vial IVP 09/13/24 20:59 40 mg BID WAYNE Administration Potassium Phos/Sodium Phos 1 packet 08/18/24 09:00 08/19/24 08:10 [facility] 1 Packet (1.5 Gm) PO 09/17/24 08:59 1 packet BID WAYNE Administration Spironolactone 50 mg 08/17/24 11:15 08/19/24 08:11 Spironolactone 25 Mg Tablet PO 09/16/24 11:14 50 mg QDAY WAYNE Administration Plan 63-year-old female with past medical history of diabetes, cryptogenic cirrhosis brought over to the unit for further management of her shock #Decompensated liver cirrhosis with ascites #Hepatopulmonary syndrome? #Portal hypertension #Thrombocytopenia Child Marshall score of 10 placing the patient at exceed class with life expectancy 1 to 3 years and an abdominal surgery perioperative mortality of 82% MELD?NA score?24 for the corrected sodium of 137 due to hyperglycemia placing the patient had a 14 to 15% 90-day mortality Status post paracentesis for ascites which showed peritoneal fluid color yellow, WBC 2740, RBC 1000, polynuclear WBC 82, total protein less than 2, albumin less than 1.0, LDH 297, peritoneal glucose 190, peritoneal amylase less than 20 and serum total protein of 4.8 Blood cultures no growth within 48 hours Hepatitis panel negative Plan: 2 g IV ceftriaxone for SBP noted on pleural fluid analysis day 3 of 5 Continue octreotide drip Will hold lactulose at this time and restart when appropriate Lasix 40mg IV qday Coreg 3.125mg PO BID for esophageal varices prophylaxis Patient aware that she will need to follow-up with GI specialist for transplant initiation #Hepatorenal syndrome type II #Acute kidney injury, resolved Prerenal in the setting of hepatorenal syndrome Patient's baseline creatinine is 1.0 when she presented with a creatinine of 2.3 Started on octreotide drip, will titrate down as tolerated and as we come down from midodrine and Levophed support Plan: Continue Aldactone 50mg daily Nephrology consulted, appreciate recommendations Initiated Lasix as above Monitor electrolytes and replete as necessary #Shock, resolved #Aortic stenosis Likely secondary to distributive shock in the setting of decompensated liver cirrhosis secondary Septic shock less likely but possible as patient has remained afebrile but pleural fluid shows signs of SBP with elevated WBC Echocardiogram shows Normal LVsize and wall thickness. Estimated EF 65%. The RV is normal in size and systolic function. Moderately increased LA volume 39 mL/m?. [id number] MR. Moderate thickening of the AV. Mild to moderate , mean gradient 18 mmHg, JORGE 1 cm?. There is mild TR and PI. Inferior vena cava not well visualized. Patient status post IV pressors and paracentesis for ascites Plan: Monitor on telemetry Continue midodrine 15 mg PO Q6HRs with holding parameters #Insulin-dependent type 2 diabetes Patient takes insulin at home and she presented with a glucose of 635 with an A1c of 9.1 Total insulin received 32 units (10 glargine and 22 lantus) Plan: Continue sliding Scale Glargine 20 units HS, Lispro 5 units Premeal low carb consistent & low sodium #Anemia of chronic disease Likely due to anemia of chronic disease as patient has cirrhosis. Hemoglobin 9.5 No signs of active bleed at this time Will hold chemical prophylaxis at this time as patient is coagulopathic with a low platelet count Iron panel shows: Iron of 23, TIBC 179, iron saturation 12%, ferritin 128 Plan: Procrit and iron supplementation as per nephrology recommendations Hospital Management: FEN: low carb consistent-low salt DVT PPx: SCDs GI PPx: Protonix IV twice daily IV lines: Peripheral IVs Pugh: To be discontinued pending voiding trial Dispo: IV antibiotics for SBP day 3 of Code Status: Full code Patient seen and examined with attending Dr. Harris and Dr. Angela Leiva, PGY-1 Attending Provider Attestation/Addendum Danette, Maria T Harris DO, attest that I was physically present for the lerma portions of the service and evaluated the patient with the resident and I reviewed and discussed the case with the resident and agree with the resident's findings and plans of care as documented above Patient seen and evaluated this AM. Patient has been doing well and BP improved. Patient is eager to go home. However, will continue with IV abx for SBP which will be completed on 08/20 to complete 5 days of treatment. Will have physical therapy to continue working with patient. She is currently on 1 L nasal cannula and no longer reports any further episodes of shortness of breath.
--- NOTE | 2024-08-19 14:15 | PC.NURSE ---
Pt. has had 5 BMs for this shift, they are loose. Dr. Leiva states we wont do anything to treat it until its watery.
--- NOTE | 2024-08-19 15:09 | PC.SS ---
Follow up note: SS met with patient and spouse at bedside to discuss d/c plans. Patient will return home with home health services. Patient needs 2 more days to complete her i.v. antibiotics. Patient will need new home 02 as well. SS will submit on [employer] for prior authorization. Patient will also need a new walker for home.
--- NOTE | 2024-08-19 15:10 | PC.SS ---
Patient needs a new FWW for home. The diagnosis creates mobility limitation that significantly impairs ability to participate in the patients activities of daily living either in their entirety, or in a reasonable time frame. Also the patient is able to safely use the walker and the patient?s mobility is sufficiently resolved with the use of the walker and cane has been ruled out.
[2024-08-19] MEDS: OCTREOTIDE ACET INJ 1,000 MCG in SODIUM CHLORIDE 0.9% 100 ML 5.1 MCG IV (15:39)
[2024-08-19] MEDS: INSULIN GLARGINE (Lantus) 5 UNIT/0.05 ML (PER 5 UNITS) 20 UNIT SC (20:39)
[2024-08-19] MEDS: PROMETHAZINE/DM SYRUP 5 ML DOSE 10 ML PO (22:05)
[2024-08-20] VITALS (14 sets, daily range): BP systolic 118–151; BP diastolic 58–97; PULSE 62–77; RESP 14–26; TEMP 36.4–36.8; O2SAT 92–100; BMI 29.0; BMI 13.0; BMI 15.0
[2024-08-20 05:15] LABS: Basophils % (Auto) 1 % (0-2.5); Eosinophils # (Auto) 0.2 Thou/mm3 (0.0-0.5); Eosinophils % (Auto) 5 % (0-10); Hematocrit 24.1 % (36.0-46.0); Immature Granulocytes % (Auto) 3 % (0-0); Immature Granulocytes Auto 0.12 Thou/mm3 (0.00-0.00); Lymphocytes # (Auto) 0.7 Thou/mm3 (1.0-4.8); Lymphocytes % (Auto) 16 % (10-50); Mean Corpuscular HGB Conc 34.4 g/dl (31.0-37.0); Mean Corpuscular Hemoglobin 33.7 pg (25.0-35.0); Mean Corpuscular Volume 98 fL (80-100); Monocytes # (Auto) 0.7 Thou/mm3 (0.0-0.8); Monocytes % (Auto) 15 % (0-12); Neutrophils # (Auto) 2.9 Thou/mm3 (1.8-7.7); Neutrophils % (Auto) 62 % (37-80); Nucleated Red Blood Cell # 0.02 Thou/mm3 (0.00-0.00); Nucleated Red Blood Cell % 0 /100 WBC (0); RDW Standard Deviation 58.2 fL (36.4-46.3); Red Blood Count 2.46 Miln/mm3 (4.00-5.20); White Blood Count 4.7 Thou/mm3 (3.6-11.0)
[2024-08-20 05:20] LABS: Hemoglobin 8.3 g/dL (12.0-16.0); Platelet Count 61 Thou/mm3 (140-440)
[2024-08-20 05:46] LABS: Alanine Aminotransferase < 7 U/L (10-49); Albumin, Serum 3.4 gm/dL (3.4-4.8); Albumin/Globulin Ratio 1.8 (1.2-2.2); Alkaline Phosphatase 49 U/L (46-116); Anion Gap 8 (7-16); Aspartate Amino Transferase 25 U/L (0-34); BUN/Creatinine Ratio 22 Ratio (12-20); Bilirubin,Total 4.3 mg/dL (0.3-1.2); Blood Urea Nitrogen 26 mg/dL (9-23); Calcium 8.3 mg/dL (8.3-10.6); Calcium (Corrected) 8.8 mg/dL (8.5-10.1); Carbon Dioxide 28.5 mMol/L (20.0-31.0); Chloride 104 mMol/L (98-107); Creatinine (Component) 1.2 mg/dL (0.6-1.3); Estimated Creatinine Clearance 41.8 mL/min (>60); Globulin 1.9 gm/dL (2.3-3.5); Glucose 109 mg/dL (74-106); Osmolality,Calculated 285 (275-295); Potassium 4.7 mMol/L (3.4-5.1); Sodium 140 mMol/L (136-145); Total Protein 5.3 gm/dL (5.7-8.2); eGFR 50 See Note
[2024-08-20 06:07] LABS: Slide Review Platelets confirmed
[2024-08-20] MEDS: FUROSEMIDE INJ 10 MG/ML 4ML VIAL 40 MG IVP (08:28)
[2024-08-20] MEDS: SPIRONOLACTONE 25 MG TABLET 50 MG PO (08:28)
[2024-08-20] MEDS: PANTOPRAZOLE INJ 40 MG VIAL IVP ×2 (08:28→20:42)
[2024-08-20] MEDS: carVEDILOL 3.125 MG TABLET PO ×2 (08:29→10:33)
[2024-08-20] MEDS: cefTRIAXone/D5w 2gm 2 GM/50 ML BAG IV (08:29)
[2024-08-20] MEDS: NAPH,KPH MBDB 1 PACKET (1.5 GM) PO ×2 (08:29→20:42)
--- NOTE | 2024-08-20 10:35 | PC.SS ---
Follow up note: SS spoke to [facility] who confirmed they received order and will deliver 02 and walker to bedside today. Poss d/c home tomorrow.
[2024-08-20] MEDS: INSULIN LISPRO (AdmeLOG) 1 UNIT/0.01 ML UNIT 5 UNIT SC (11:24)
[2024-08-20] MEDS: INSULIN LISPRO (AdmeLOG) 1 UNIT/0.01 ML UNIT SC (11:25)
--- NOTE | 2024-08-20 11:25 | PD.NEPHPROG ---
Documentation for date of: 08/20/24 Subjective Subjective Interval history: Interval history: Ms. Charlton is a 63-year-old female with past medical history of diabetes, cryptogenic cirrhosis presented to the ED due to shortness of breath that has progressively been getting worse and is associated with palpitations. Patient also states having bilateral leg swelling onset of about 2 months ago that has progressively worsened anasarcic. Patient also noted to have decrased po intake for the past few weeks. Patient arrived to the ER blood pressure of 56/37, HR 64, and was requiring Levophed via peripheral lines and was given IV fluids boluses and has current MAP above 65. Denies fever, chills, chest pain, nausea, vomiting, recent travel, sick contacts. Patient admitted for anasarca. ED COURSE: ED vitals: BP 56/37, HR 64, RR 20, saturating 97% on room air ED labs: Normocytic anemia, thrombocytopenia, coagulopathic, hyponatremic, hypochloremic, creatinine 2.3, glucose 635, A1c 9.1, lactic acid 2.3 and trending up, magnesium 1.3, T. bili 2.9, alk phos 185, BNP 305, procalcitonin 1.36 ED Tx: Midodrine, 250 mL NS bolus x 2, albumin 25 x 3, NS bolus 500 mL, lispro 7 units, Levophed, lispro 10 units x 1 glargine 10 units x 1 Patient was upgraded to ICU for pressor support, downgraded after improvement. Was determined to have spontaneous bacterial peritonitis, appropriate treatment was initiated. BP still soft, patient given octreotide, albumin, midodrine. Patient presented with elevated creatinine, 2.3 compared to baseline of 1.2, EGFR 23 compared to baseline 50. Concern for hepatorenal syndrome in the setting of acute decompensated liver failure with spontaneous bacterial peritonitis, nephrology consulted. Patient did show improvement in kidney function with midodrine and albumin support. Remains edematous with notable ascites, nontender. Denied fever, chills, chest pain, nausea, vomiting, reported good urinary output. 3.3 L urinary output over past 24 hours. WBC 4.1, hemoglobin 8.3, sodium 136, potassium 4.5, bicarb 22.5, BUN 29, creatinine 1.8, EGFR 31. Agree with current management, close monitoring. Recommend adding Aldactone. Probable IGNACIO due to ischemia secondary to severe hypotension. 08/18/2024: Patient seen and examined at bedside, resting comfortably. Remains edematous, but improved. Had a rapid response for shortness of breath, crackles heard on exam, CXR showed increased vascular congestion. 40mg Lasix IV x1 given. 3.7 L urinary output. WBC 3.3, Hg 7.8, platelets 49. Na 140, K 4.6, bicarb 23, BUN 26, creatinine 1.2, eGFR 50. Phos 1.7, Mg 1.5, repleted. Recommend starting beta-doyle for tachycardia and variceal prophylaxis, continue spirinolactone. 08/19/2024: Patient seen examined at bedside, resting comfortably. Patient improved from yesterday, denies shortness of breath, chest pain, nausea, vomiting. Edema significantly improved from yesterday. Patient saturating well on room air. 3.5 L urinary output overnight. WBC 6.9, hemoglobin 8.4, sodium 140, potassium 4.4, bicarb 24.8, BUN 28, creatinine 1.1, EGFR 56. Patient cleared for discharge from nephrology perspective. 08/20/2024 patient currently seen in medical floor. Resting comfortably significant amount of urine noted. Creatinine markedly improved. Review of Systems Review of Systems Systems Reviewed: All systems reviewed, normal except as documented Exam Vital Signs Temp Pulse Resp BP Pulse Ox O2 Del Method O2 Flow Rate 36.4 C 64 21 H 127/78 92 L Nasal Cannula 5 08/20/24 08:00 08/20/24 10:33 08/20/24 09:00 08/20/24 10:33 08/20/24 09:00 08/20/24 08:00 08/20/24 08:00 FiO2 70 08/20/24 09:00 Narrative Exam PE: Gen: Well-developed and well-nourished. HEENT: NCAT, PERRLA, EOMI, MMM, anicteric conjunctivae. CVS: normal S1 and S2. No M/R/G. Sinus tachycardia. Resp: Lungs clear to auscultation bilaterally. Abd: soft, non-tender. Mild distention positive fluid wave. MSK: Good ROM in BUE & BLE. No rash. 1+ edema BLE. Neuro: CN II-XII grossly intact. Strength 5/5 in BUE & BLE. Alert and oriented x3. Psych: appropriate mood and affect. Objective Labs 08/21/24 04:12 08/21/24 04:12 Labs: Laboratory Results - last 24 hr 08/20/24 04:52 WBC 4.7 RBC 2.46 L Hgb 8.3 L Hct 24.1 L MCV 98 MCH 33.7 MCHC 34.4 RDW Std Deviation 58.2 H Plt Count 61 L Neut % (Auto) 62 Lymph % (Auto) 16 [place] % (Auto) 15 H Eos % (Auto) 5 Baso % (Auto) 1 Neut # (Auto) 2.9 Lymph # (Auto) 0.7 L [place] # (Auto) 0.7 Eos # (Auto) 0.2 Baso # (Auto) 0.0 Immature Gran # (Auto) 0.12 H Absolute Nucleated RBC 0.02 H Immature Gran % 3 H Nucleated RBC % 0 Sodium 140 Potassium 4.7 Chloride 104 Carbon Dioxide 28.5 Anion Gap 8 BUN 26 H Creatinine 1.2 Estim Creat Clear Calc 41.8 L eGFR 50 L BUN/Creatinine Ratio 22 H Glucose 109 H Calculated Osmolality 285 Calcium 8.3 Corrected Calcium 8.8 Total Bilirubin 4.3 H AST 25 ALT < 7 L Alkaline Phosphatase 49 Total Protein 5.3 L Albumin 3.4 Globulin 1.9 L Albumin/Globulin Ratio 1.8 Misc Test Result Platelets confirmed ABG Interpretation ABG results: 08/14/24 08/14/24 08:25 15:20 ABG pH 7.40 ABG pCO2 35 ABG pO2 70 L ABG HCO3 22 ABG O2 Saturation 95 ABG Base Excess -2 VBG pH 7.36 VBG pCO2 40 VBG pO2 47 VBG Base Excess -3 Assessment & Plan Additional Assessment & Plan Additional Plan: 63-year-old female with past medical history of diabetes, cryptogenic cirrhosis brought over to the unit for further management of her shock, nephrology consulted for management of IGNACIO possibly due to hepatorenal syndrome. #Acute kidney injury Likely prerenal in the setting of ischemia versus hepatorenal syndrome type II. Patient's baseline creatinine is 1.0, EGFR 50. Patient presented with a creatinine of 2.3 and EGFR 23. Patient was on pressure support due to severe hypotension, was titrated off. Started on octreotide drip, albumin and midodrine for BP support. Maintains good urinary output. Creatinine in fact improved. Rapid was called for SOB, CXR showed increased vascular congestion despite net fluid loss. IV Lasix x1 given. Patient showed significant improvement. - Aldactone 50mg daily - Avoid nephrotoxins - Renally dose medications - Monitor daily renal function - Monitor urinary output - Follow up with Dr. De Paz 1-2 weeks after discharge - Patient cleared for discharge from nephrology perspective - Recommend voiding trial prior to discharge #Decompensated liver cirrhosis with ascites #Sinus tachycardia #Thrombocytopenia #Shock, resolved #Aortic stenosis #Insulin-dependent type 2 diabetes #Anemia of chronic disease Management as per the primary team. Thank you for allow us to participate in the care of this patient. Quality - progress note Quality Measures Quality Measures: VTE prophylaxis Reason for Continued Stay Reason for Continued Stay: further monitoring
--- NOTE | 2024-08-20 13:16 | ESPR_ITS ---
<Statement entered by William Miller MD - 08/20/24 17:30> Patient examined and case discussed with the team including attending physician. Note reviewed, I agree with the care plan as documented. Ms Charlton is a 63-year-old female with past medical history of diabetes, cryptogenic cirrhosis admitted for decompensated liver cirrhosis with ascites. Child Marshall score of 10 placing the patient at exceed class with life expectancy 1 to 3 years and an abdominal surgery perioperative mortality of 82%. MELD?NA score?24 for the corrected sodium of 137. Patient was admitted to ICU for low MAP, and started on vasopressors to perform paracentesis for ascites, total output 6.2L, repleted with 50g albumin. Analysis showed peritoneal fluid color yellow, WBC 2740, RBC 1000, polynuclear WBC 82 (high), otherwise negative. Hepatitis panel negative. Blood cultures no growth within 48 hours. Acute kidney injury, likely hepatorenal syndrome type II, has now resolved. Plan: Will continue inpatient for 2 more days on IV Rocephin 2g daily for possible SBP. Will DC tomorrow 08/21/2024Friday after course completed. Please refer to the note below for further details. - William Miller MD, PGY 2 Disclaimer: The document may contain phonetic/typographic errors due to voice recognition software. These errors are purely due to imperfections in the software program. Documentation for date of: 08/20/24 Subjective Subjective Interval history: 08/20/2024: No acute overnight events to report. Patient seen and examined in hospital bed reporting improvement in presenting symptoms. Patient denies having any concerning cardiac symptoms at this time but continues to be on supplemental oxygen. Will continue treating the patient with IV antibiotics to complete course for spontaneous bacterial peritonitis secondary to cryptogenic cirrhosis. Expect discharge within the next 24 hours if patient remains stable. Exam Vital Signs Temp Pulse Resp BP Pulse Ox O2 Del Method O2 Flow Rate 98.1 F 69 21 H 121/58 L 100 Nasal Cannula 1 08/20/24 11:57 08/20/24 12:00 08/20/24 11:57 08/20/24 11:57 08/20/24 11:57 08/20/24 11:57 08/20/24 11:57 FiO2 70 08/20/24 09:00 Narrative Exam Physical Exam: GENERAL: Awake, answering questions appropriately, appears stated age HEENT: NC/AT. Moist mucosa. PERRLA/EOMI. CARDIO: Heart RRR, no obvious murmurs, no JVD. PULM: No coughing or visible SOB. Lungs CTA B/L. GI: Abdomen soft, nondistended, no fluid wave noted, borborygmi apparent, no guarding or rebound tenderness. SKIN/MSK/EXT: non-pitting edema bilaterally on lower extremities. No wounds/discoloration/rashes/amputations. +Pedal pulses present B/L. NEURO: Oriented x3, Moves extremities x4, no focal neurologic deficits noted Objective Labs 08/20/24 04:52 08/20/24 04:52 Labs: Laboratory Results - last 24 hr 08/20/24 04:52 WBC 4.7 RBC 2.46 L Hgb 8.3 L Hct 24.1 L MCV 98 MCH 33.7 MCHC 34.4 RDW Std Deviation 58.2 H Plt Count 61 L Neut % (Auto) 62 Lymph % (Auto) 16 [place] % (Auto) 15 H Eos % (Auto) 5 Baso % (Auto) 1 Neut # (Auto) 2.9 Lymph # (Auto) 0.7 L [place] # (Auto) 0.7 Eos # (Auto) 0.2 Baso # (Auto) 0.0 Immature Gran # (Auto) 0.12 H Absolute Nucleated RBC 0.02 H Immature Gran % 3 H Nucleated RBC % 0 Sodium 140 Potassium 4.7 Chloride 104 Carbon Dioxide 28.5 Anion Gap 8 BUN 26 H Creatinine 1.2 Estim Creat Clear Calc 41.8 L eGFR 50 L BUN/Creatinine Ratio 22 H Glucose 109 H Calculated Osmolality 285 Calcium 8.3 Corrected Calcium 8.8 Total Bilirubin 4.3 H AST 25 ALT < 7 L Alkaline Phosphatase 49 Total Protein 5.3 L Albumin 3.4 Globulin 1.9 L Albumin/Globulin Ratio 1.8 Misc Test Result Platelets confirmed ABG Interpretation ABG results: 08/14/24 08/14/24 08:25 15:20 ABG pH 7.40 ABG pCO2 35 ABG pO2 70 L ABG HCO3 22 ABG O2 Saturation 95 ABG Base Excess -2 VBG pH 7.36 VBG pCO2 40 VBG pO2 47 VBG Base Excess -3 Quality Measures Quality Measures VTE prophylaxis Advance care planning discussed with:: patient Assessment & Plan Assessment Current Active Medications: Generic Name Dose Route Start Last Admin Trade Name Freq PRN Reason Stop Dose Admin Acetaminophen 650 mg 08/14/24 19:35 08/16/24 00:42 Acetaminophen 325 Mg Tablet PO 09/13/24 14:53 650 mg Q6H PRN Administration Fever >100.4 or pain Carvedilol 6.25 mg 08/20/24 17:30 Carvedilol 3.125 Mg Tablet PO 09/19/24 17:29 BIDWM WAYNE Dextrose 50 ml 08/14/24 15:04 Dextrose 50%-Water Inj 50 Ml Syringe IV 09/13/24 15:03 Q15MIN PRN BG <50 OR BG <70 & pt unresponsive Ferrous Sulfate 325 mg 08/15/24 07:15 08/19/24 08:11 Ferrous Sulf 325 Mg Tablet PO 09/14/24 07:14 325 mg QOD WAYEN Administration Furosemide 40 mg 08/19/24 09:00 08/20/24 08:28 Furosemide Inj 10 Mg/Ml 4ml Vial IVP 09/18/24 08:59 40 mg QDAY WAYNE Administration Glucagon 1 mg 08/14/24 15:04 Glucagon Inj 1 Mg Vial IM Q15MIN PRN BG <70, and no IV access Ceftriaxone Sodium/Dextrose 2 gm in 50 mls @ 100 mls/hr 08/17/24 09:00 08/20/24 08:29 Rocephin/D5w 2gm IV 08/24/24 08:59 100 mls/hr QDAY WAYNE Administration Octreotide Acetate 1,000 mcg/ 102 mls @ 5.1 mls/hr 08/17/24 19:45 08/19/24 15:39 Sodium Chloride IV 09/14/24 11:59 50 mcg/hr .Q20H WAYNE 5.1 mls/hr Administration Protocol 50 MCG/HR Insulin Glargine 20 unit 08/20/24 21:00 Insulin Glargine (Lantus) 5 Unit/0.05 Ml (Per 5 Units) SC 09/19/24 20:59 HS [facility] Insulin Human Lispro 0 unit 08/16/24 17:00 08/20/24 11:25 Insulin Lispro (Admelog) 1 Unit/0.01 Ml Unit SC 09/15/24 16:59 2 unit AC [facility] Administration Protocol Insulin Human Lispro 5 unit 08/16/24 17:00 08/20/24 11:24 Insulin Lispro (Admelog) 1 Unit/0.01 Ml Unit SC 09/15/24 16:59 5 unit AC WAYNE Administration Lidocaine 1 patch 08/16/24 15:32 Lidocaine 5% 1 Patch TOP 09/15/24 15:31 UD PRN LT shoulder Pain Menthol/Methyl Salicylate 1 appl 08/16/24 08:36 08/17/24 00:02 Methyl Salic/Menthol Oint 28 Gm Tube TOP 09/15/24 08:35 1 applicatio QID PRN Administration ARTHRITIS Ondansetron HCl 4 mg 08/14/24 14:54 Ondansetron Inj 2 Mg/Ml Inj 2 Ml IVP 09/13/24 14:53 Q6H PRN NAUSEA OR VOMITING Protocol Pantoprazole Sodium 40 mg 08/14/24 21:00 08/20/24 08:28 Pantoprazole Inj 40 Mg Vial IVP 09/13/24 20:59 40 mg BID WAYNE Administration Potassium Phos/Sodium Phos 1 packet 08/18/24 09:00 08/20/24 08:29 Naph,[facility] 1 Packet (1.5 Gm) PO 09/17/24 08:59 1 packet BID WAYNE Administration Promethazine HCl/Dextromethorphan 10 ml 08/19/24 21:59 08/19/24 22:05 Promethazine/Dm Syrup 5 Ml Dose PO 09/18/24 21:58 10 ml Q6HR PRN Administration COUGH Protocol Spironolactone 50 mg 08/17/24 11:15 08/20/24 08:28 Spironolactone 25 Mg Tablet PO 09/16/24 11:14 50 mg QDAY WAYNE Administration Plan 63-year-old female with past medical history of diabetes, cryptogenic cirrhosis brought over to the unit for further management of her shock #Decompensated liver cirrhosis with ascites #Hepatopulmonary syndrome? #Portal hypertension #Thrombocytopenia Child Marshall score of 10 placing the patient at exceed class with life expectancy 1 to 3 years and an abdominal surgery perioperative mortality of 82% MELD?NA score?24 for the corrected sodium of 137 due to hyperglycemia placing the patient had a 14 to 15% 90-day mortality Status post paracentesis for ascites which showed peritoneal fluid color yellow, WBC 2740, RBC 1000, polynuclear WBC 82, total protein less than 2, albumin less than 1.0, LDH 297, peritoneal glucose 190, peritoneal amylase less than 20 and serum total protein of 4.8 Blood cultures no growth within 48 hours Hepatitis panel negative Plan: 2 g IV ceftriaxone for SBP noted on pleural fluid analysis day 4 of 5 Will hold lactulose at this time and restart when appropriate Lasix 40mg IV qday Coreg 6.25mg PO BID for esophageal varices prophylaxis Patient aware that she will need to follow-up with GI specialist for transplant initiation #Hepatorenal syndrome type II #Acute kidney injury, resolved Prerenal in the setting of hepatorenal syndrome Patient's baseline creatinine is 1.0 when she presented with a creatinine of 2.3 Started on octreotide drip, will titrate down as tolerated and as we come down from midodrine and Levophed support Plan: Continue Aldactone 50mg daily Nephrology consulted, appreciate recommendations Initiated Lasix as above Monitor electrolytes and replete as necessary #Shock, resolved #Aortic stenosis Likely secondary to distributive shock in the setting of decompensated liver cirrhosis secondary Septic shock less likely but possible as patient has remained afebrile but pleural fluid shows signs of SBP with elevated WBC Echocardiogram shows Normal LVsize and wall thickness. Estimated EF 65%. The RV is normal in size and systolic function. Moderately increased LA volume 39 mL/m?. [id number] MR. Moderate thickening of the AV. Mild to moderate , mean gradient 18 mmHg, JORGE 1 cm?. There is mild TR and PI. Inferior vena cava not well visualized. Patient status post IV pressors and paracentesis for ascites Plan: Please follow-up outpatient with your PCP regarding aortic stenosis and consider referral to cardiology Monitor on telemetry Midodrine discontinued #Insulin-dependent type 2 diabetes Patient takes insulin at home and she presented with a glucose of 635 with an A1c of 9.1 Total insulin received 32 units (10 glargine and 22 lantus) Plan: Continue sliding Scale Glargine 20 units HS, Lispro 5 units Premeal low carb consistent & low sodium #Anemia of chronic disease Likely due to anemia of chronic disease as patient has cirrhosis. Hemoglobin 9.5 No signs of active bleed at this time Will hold chemical prophylaxis at this time as patient is coagulopathic with a low platelet count Iron panel shows: Iron of 23, TIBC 179, iron saturation 12%, ferritin 128 Plan: Procrit and iron supplementation as per nephrology recommendations Hospital Management: FEN: low carb consistent-low salt DVT PPx: SCDs GI PPx: Protonix IV twice daily IV lines: Peripheral IVs Dispo: IV antibiotics for SBP day 4 of 5 Code Status: Full code Patient seen and examined with attending Dr. Arriola and Dr. Angela Leiva, PGY-1 Attending Provider Attestation/Addendum I attest that I was physically present for the evaluation, physical examination, lab and imaging review of the patient with the residents. I discussed the case with the residents and agree with the findings and plans of care as documented above. At bedside today, patient states she is feeling well and does not have any complaints. Continues to be on 1 to 2 L nasal cannula, saturating well. Noted to have mild elevation in blood pressure, we will increase her Coreg to 6.25. Blood glucose noted to be 68 this morning, we will decrease her Lantus from 25- 20. Continues to be on Lasix, spironolactone. Continues to be on IV Rocephin for SBP, will complete 5 days course tomorrow. Kidney function has improved significantly, nephrology following closely, appreciate recommendations. Home health has been ordered as recommended by PT. Anticipate discharge in 24 hours if remains stable after completion of 5 days of IV antibiotics. Lico Arriola MD
[2024-08-20] MEDS: OCTREOTIDE ACET INJ 1,000 MCG in SODIUM CHLORIDE 0.9% 100 ML 5.1 MCG IV (13:35)
[2024-08-20] MEDS: carVEDILOL 3.125 MG TABLET 6.25 MG PO (17:01)
[2024-08-20] MEDS: INSULIN GLARGINE (Lantus) 5 UNIT/0.05 ML (PER 5 UNITS) 20 UNIT SC (20:41)
[2024-08-21] VITALS (9 sets, daily range): BP systolic 119–140; BP diastolic 54–72; PULSE 65–81; RESP 16–24; TEMP 36.6–37.7; O2SAT 89–94; BMI 28.3
[2024-08-21 05:31] LABS: Basophils % (Auto) 1 % (0-2.5); Eosinophils # (Auto) 0.2 Thou/mm3 (0.0-0.5); Eosinophils % (Auto) 5 % (0-10); Hematocrit 22.5 % (36.0-46.0); Immature Granulocytes % (Auto) 2 % (0-0); Immature Granulocytes Auto 0.05 Thou/mm3 (0.00-0.00); Lymphocytes # (Auto) 0.8 Thou/mm3 (1.0-4.8); Lymphocytes % (Auto) 23 % (10-50); Mean Corpuscular HGB Conc 34.7 g/dl (31.0-37.0); Mean Corpuscular Hemoglobin 34.2 pg (25.0-35.0); Mean Corpuscular Volume 99 fL (80-100); Monocytes # (Auto) 0.4 Thou/mm3 (0.0-0.8); Monocytes % (Auto) 12 % (0-12); Neutrophils # (Auto) 1.9 Thou/mm3 (1.8-7.7); Neutrophils % (Auto) 58 % (37-80); Nucleated Red Blood Cell % 0 /100 WBC (0); RDW Standard Deviation 59.5 fL (36.4-46.3); Red Blood Count 2.28 Miln/mm3 (4.00-5.20); White Blood Count 3.3 Thou/mm3 (3.6-11.0)
[2024-08-21 05:32] LABS: Hemoglobin 7.8 g/dL (12.0-16.0); Platelet Count 59 Thou/mm3 (140-440)
[2024-08-21 06:00] LABS: Slide Review Platelets confirmed
[2024-08-21 06:14] LABS: Alanine Aminotransferase 8 U/L (10-49); Albumin, Serum 3.3 gm/dL (3.4-4.8); Albumin/Globulin Ratio 1.7 (1.2-2.2); Alkaline Phosphatase 50 U/L (46-116); Anion Gap 10 (7-16); Aspartate Amino Transferase 29 U/L (0-34); BUN/Creatinine Ratio 21 Ratio (12-20); Bilirubin,Total 4.5 mg/dL (0.3-1.2); Blood Urea Nitrogen 25 mg/dL (9-23); Calcium 8.5 mg/dL (8.3-10.6); Calcium (Corrected) 9.1 mg/dL (8.5-10.1); Carbon Dioxide 27.2 mMol/L (20.0-31.0); Chloride 104 mMol/L (98-107); Creatinine (Component) 1.2 mg/dL (0.6-1.3); Estimated Creatinine Clearance 41.8 mL/min (>60); Globulin 1.9 gm/dL (2.3-3.5); Glucose 113 mg/dL (74-106); Osmolality,Calculated 286 (275-295); Sodium 141 mMol/L (136-145); Total Protein 5.2 gm/dL (5.7-8.2); eGFR 50 See Note
--- NOTE | 2024-08-21 07:48 | PD.NEPHPROG ---
Documentation for date of: 08/21/24 Subjective Subjective Interval history: Interval history: Ms. Charlton is a 63-year-old female with past medical history of diabetes, cryptogenic cirrhosis presented to the ED due to shortness of breath that has progressively been getting worse and is associated with palpitations. Patient also states having bilateral leg swelling onset of about 2 months ago that has progressively worsened anasarcic. Patient also noted to have decrased po intake for the past few weeks. Patient arrived to the ER blood pressure of 56/37, HR 64, and was requiring Levophed via peripheral lines and was given IV fluids boluses and has current MAP above 65. Denies fever, chills, chest pain, nausea, vomiting, recent travel, sick contacts. Patient admitted for anasarca. ED COURSE: ED vitals: BP 56/37, HR 64, RR 20, saturating 97% on room air ED labs: Normocytic anemia, thrombocytopenia, coagulopathic, hyponatremic, hypochloremic, creatinine 2.3, glucose 635, A1c 9.1, lactic acid 2.3 and trending up, magnesium 1.3, T. bili 2.9, alk phos 185, BNP 305, procalcitonin 1.36 ED Tx: Midodrine, 250 mL NS bolus x 2, albumin 25 x 3, NS bolus 500 mL, lispro 7 units, Levophed, lispro 10 units x 1 glargine 10 units x 1 Patient was upgraded to ICU for pressor support, downgraded after improvement. Was determined to have spontaneous bacterial peritonitis, appropriate treatment was initiated. BP still soft, patient given octreotide, albumin, midodrine. Patient presented with elevated creatinine, 2.3 compared to baseline of 1.2, EGFR 23 compared to baseline 50. Concern for hepatorenal syndrome in the setting of acute decompensated liver failure with spontaneous bacterial peritonitis, nephrology consulted. Patient did show improvement in kidney function with midodrine and albumin support. Remains edematous with notable ascites, nontender. Denied fever, chills, chest pain, nausea, vomiting, reported good urinary output. 3.3 L urinary output over past 24 hours. WBC 4.1, hemoglobin 8.3, sodium 136, potassium 4.5, bicarb 22.5, BUN 29, creatinine 1.8, EGFR 31. Agree with current management, close monitoring. Recommend adding Aldactone. Probable IGNACIO due to ischemia secondary to severe hypotension. 08/18/2024: Patient seen and examined at bedside, resting comfortably. Remains edematous, but improved. Had a rapid response for shortness of breath, crackles heard on exam, CXR showed increased vascular congestion. 40mg Lasix IV x1 given. 3.7 L urinary output. WBC 3.3, Hg 7.8, platelets 49. Na 140, K 4.6, bicarb 23, BUN 26, creatinine 1.2, eGFR 50. Phos 1.7, Mg 1.5, repleted. Recommend starting beta-doyle for tachycardia and variceal prophylaxis, continue spirinolactone. 08/19/2024: Patient seen examined at bedside, resting comfortably. Patient improved from yesterday, denies shortness of breath, chest pain, nausea, vomiting. Edema significantly improved from yesterday. Patient saturating well on room air. 3.5 L urinary output overnight. WBC 6.9, hemoglobin 8.4, sodium 140, potassium 4.4, bicarb 24.8, BUN 28, creatinine 1.1, EGFR 56. Patient cleared for discharge from nephrology perspective. 08/21/2024 patient currently seen in medical floor. Resting comfortably. Anxious to go home. Creatinine markedly improved. He can be discharged on Lasix, Aldactone. She has hepatorenal syndrome type II Review of Systems Review of Systems Narrative Review of Systems: Denies any chest pain, shortness of breath. Denies any nausea, vomiting. No abdominal pain. Exam Vital Signs Temp Pulse Resp BP Pulse Ox O2 Del Method O2 Flow Rate 36.7 C 75 24 H 129/60 92 L Nasal Cannula 1 08/21/24 04:00 08/21/24 04:00 08/21/24 04:00 08/21/24 04:00 08/21/24 04:00 08/21/24 04:00 08/21/24 04:00 FiO2 70 08/20/24 20:00 Narrative Exam GENERAL APPEARANCE: Patient seems to be comfortable, adequately hydrated and nourished. HEENT: EOMI, PERRLA NECK: Neck supple, no JVD or bruit CARDIOVASCULAR: Heart regular, no murmurs LUNGS/CHEST: Chest clear to auscultation. No rales, rhonchi, wheezing ABDOMEN: Soft, nontender, nondistended. No masses. Normal bowel sounds. Mild ascites EXTREMITIES: Trace edema in the lower extremities SKIN: Skin exam normal without any rashes MUSCULOSKELETAL: In bed NEUROLOGICAL : No neurological deficits. No asterixis Objective Labs 08/21/24 04:12 08/21/24 04:12 Labs: Laboratory Results - last 24 hr 08/21/24 04:12 WBC 3.3 L RBC 2.28 L Hgb 7.8 L Hct 22.5 L MCV 99 MCH 34.2 MCHC 34.7 RDW Std Deviation 59.5 H Plt Count 59 L Neut % (Auto) 58 Lymph % (Auto) 23 [place] % (Auto) 12 Eos % (Auto) 5 Baso % (Auto) 1 Neut # (Auto) 1.9 Lymph # (Auto) 0.8 L [place] # (Auto) 0.4 Eos # (Auto) 0.2 Baso # (Auto) 0.0 Immature Gran # (Auto) 0.05 H Absolute Nucleated RBC 0.00 Immature Gran % 2 H Nucleated RBC % 0 Sodium 141 Potassium 5.0 Chloride 104 Carbon Dioxide 27.2 Anion Gap 10 BUN 25 H Creatinine 1.2 Estim Creat Clear Calc 41.8 L eGFR 50 L BUN/Creatinine Ratio 21 H Glucose 113 H Calculated Osmolality 286 Calcium 8.5 Corrected Calcium 9.1 Total Bilirubin 4.5 H AST 29 ALT 8 L Alkaline Phosphatase 50 Total Protein 5.2 L Albumin 3.3 L Globulin 1.9 L Albumin/Globulin Ratio 1.7 Misc Test Result Platelets confirmed ABG Interpretation ABG results: 08/14/24 08/14/24 08:25 15:20 ABG pH 7.40 ABG pCO2 35 ABG pO2 70 L ABG HCO3 22 ABG O2 Saturation 95 ABG Base Excess -2 VBG pH 7.36 VBG pCO2 40 VBG pO2 47 VBG Base Excess -3 Assessment & Plan Additional Assessment & Plan Additional Plan: 63-year-old female with past medical history of diabetes, cryptogenic cirrhosis brought over to the unit for further management of her shock, nephrology consulted for management of IGNACIO possibly due to hepatorenal syndrome. #Acute kidney injury Likely prerenal in the setting of ischemia versus hepatorenal syndrome type II. Patient's baseline creatinine is 1.0, EGFR 50. Patient presented with a creatinine of 2.3 and EGFR 23. Patient was on pressure support due to severe hypotension, was titrated off. Started on octreotide drip, albumin and midodrine for BP support. Maintains good urinary output. Creatinine in fact improved. Rapid was called for SOB, CXR showed increased vascular congestion despite net fluid loss. IV Lasix x1 given. Patient showed significant improvement. - Aldactone 50mg daily - Avoid nephrotoxins - Renally dose medications - Monitor daily renal function - Monitor urinary output - Follow up with Dr. De Paz 1-2 weeks after discharge - Patient cleared for discharge from nephrology perspective - Recommend voiding trial prior to discharge #Decompensated liver cirrhosis with ascites #Sinus tachycardia #Thrombocytopenia #Shock, resolved #Aortic stenosis #Insulin-dependent type 2 diabetes #Anemia of chronic disease Management as per the primary team. Renal larry stable for discharge Thank you for allow us to participate in the care of this patient.
[2024-08-21] MEDS: FERROUS SULF 325 MG TABLET PO (08:28)
[2024-08-21] MEDS: SPIRONOLACTONE 25 MG TABLET 50 MG PO (08:29)
[2024-08-21] MEDS: carVEDILOL 3.125 MG TABLET 6.25 MG PO (08:30)
[2024-08-21] MEDS: NAPH,KPH MBDB 1 PACKET (1.5 GM) PO (08:31)
[2024-08-21] MEDS: PANTOPRAZOLE INJ 40 MG VIAL IVP (08:32)
[2024-08-21] MEDS: FUROSEMIDE INJ 10 MG/ML 4ML VIAL 40 MG IVP (08:33)
[2024-08-21] MEDS: cefTRIAXone/D5w 2gm 2 GM/50 ML BAG IV (08:34)
--- NOTE | 2024-08-21 11:05 | ESCONSULT_ITS ---
HPI Data of Consult Requesting Physician: Maria T Harris DO Admitting Provider: Maria T Harris DO Attending Provider: Maria T Harris DO Primary Care Provider: Kaylie Montes MD Consult Narrative Reason for consult: aortic stenosis History of present illness: Patient is a 63 years old female with past medical history of diabetes, hyperlipidemia, hypertension, cryptogenic cirrhosis presented to the ED due to worsening shortness of breath. Patient started feeling shortness of breath since 08/11 that has progressively been getting worse and is associated with palpitations. She reports she commonly develops SOB when her ascitis gets worse. She denies orthopnea symptoms, chest pain or pressure. Patient also states having bilateral leg swelling onset of about 2 months ago that has progressively worsened. She denies any cardiac history and previously was diagnosed with hypertension only. She denies history of MS or CVA. 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 On arrival vitals showed BP 56/37, HR 64, RR 20, saturating 97% on room air and she was started on Levophed drip but then was discontinued due to improvement of BP. Labs showed Normocytic anemia, thrombocytopenia, coagulopathic, hyponatremic, hypochloremic, creatinine 2.3, glucose 635, A1c 9.1, lactic acid 2.3, magnesium 1.3, T. bili 2.9, alk phos 185, BNP 305, procalcitonin 1.36. Patient was admitted due to anasarca. During hospital stay echo was done showed Normal LV size and wall thickness, Estimated EF 65%.Moderately increased LA volume 39 mL/m?. Moderate thickening of the AV. Mild to moderate , mean gradient 18 mmHg, JORGE 1 cm?. Cardiology was consulted for further management of . Patient was seen and examined at the bedside. She denies chest pain or pressure and reports her SOB has improved significantly since admission. She has very loud systolic murmur best heard over aortic area. She can be discharged today, she will need to follow up with Dr. Clark in 1 week for further planning of aortic stenosis repair. cc:: cc: Maria T Harris DO Review of Systems Review of Systems Systems Reviewed: All systems reviewed, normal except as documented Exam Vital Signs Temp Pulse Resp BP Pulse Ox O2 Del Method O2 Flow Rate 98.4 F 78 18 126/61 93 L Nasal Cannula 1 05/31/25 11:56 08/21/24 12:00 08/21/24 11:56 08/21/24 11:56 08/21/24 11:56 08/21/24 11:56 08/21/24 11:56 FiO2 70 08/20/24 20:00 Narrative Exam Gen: Well-developed and well-nourished. HEENT: NCAT, PERRLA, EOMI, MMM, anicteric conjunctivae. CVS: normal S1 and S2. RRR. Loud systolic murmur best heard over aortic area. Resp: CTA B/L. No rhonchi, rales, crackles or wheezing. Abd: soft, obese, non-tender, non-distended. BS+ in all 4 quadrants. MSK: Good ROM in BUE & BLE. No edema or rash. Neuro: CN II-XII grossly intact. Strength 5/5 in BUE & BLE. Alert and oriented x3. Psych: appropriate mood and affect. Results Labs 08/21/24 04:12 08/21/24 04:12 Labs: Short CBC 08/21/24 Range/Units 04:12 WBC 3.3 L (3.6-11.0) Thou/mm3 Hgb 7.8 L (12.0-16.0) g/dL Hct 22.5 L (36.0-46.0) % Plt Count 59 L (140-440) Thou/mm3 BMP 08/21/24 04:12 Sodium 141 Potassium 5.0 Chloride 104 Carbon Dioxide 27.2 BUN 25 H Creatinine 1.2 Glucose 113 H Calcium 8.5 Liver Function 08/21/24 Range/Units 04:12 Total Bilirubin 4.5 H (0.3-1.2) mg/dL AST 29 (0-34) U/L ALT 8 L (10-49) U/L Alkaline Phosphatase 50 (46-116) U/L Albumin 3.3 L (3.4-4.8) gm/dL ABG Interpretation ABG results: 08/14/24 08/14/24 08:25 15:20 ABG pH 7.40 ABG pCO2 35 ABG pO2 70 L ABG HCO3 22 ABG O2 Saturation 95 ABG Base Excess -2 VBG pH 7.36 VBG pCO2 40 VBG pO2 47 VBG Base Excess -3 Quality Measures Quality Measures VTE prophylaxis Advance care planning discussed with:: patient Medications Home Medications and Allergies Home Medications ?Medication ?Instructions ?Recorded ?Confirmed ?Type metformin 500 mg tablet 1,000 mg PO BIDAC #0 tabs 08/14/24 History (Glucophage) simvastatin 10 mg tablet (Zocor) 10 mg PO HS #0 tabs 0 12/07/15 08/14/24 History hydrocodone 7.5 mg-ibuprofen 200 1 tab PO TID PRN Pain 04/27/20 08/14/24 History mg tablet insulin glargine 100 unit/mL (3 10 unit subcut QDAY 06/24/22 History mL) subcutaneous pen (Lantus Solostar U-100 Insulin) losartan 50 mg tablet 50 mg PO QDAY 06/24/2208/14 History Held on 08/19/24. Instructions: Resume on 08/31/24. Restart if your PCP says you need additional agent for blood pressure control nateglinide 120 mg tablet 120 mg PO TID 06/24/2208/14 History temazepam 30 mg capsule 30 mg PO QHSPRN PRN Anxiety 06/24/22 08/14/24 History folic acid 1 mg tablet 1 mg PO QDAY 08/14/24 History furosemide 40 mg tablet 40 mg PO .AM 08/14/24 History insulin glargine-yfgn 100 unit/mL 10 unit subcut DAILY 08/14/24 08/15/24 History (3 mL) subcutaneous pen (Semglee (insulin glargine-yfgn) Pen) Allergies Allergy/AdvReac Type Severity Reaction Status Date / Time No Known Allergies Allergy Verified 08/14/24 07:43 Visit Medications Acetaminophen (Acetaminophen 325 Mg Tablet) 650 mg PO Q6H PRN PRN Reason: Fever >100.4 or pain Stop: 09/13/24 14:53 Last Admin: 08/16/24 00:42 Dose: 650 mg Carvedilol (Carvedilol 3.125 Mg Tablet) 6.25 mg PO BIDWM WAYNE Stop: 09/19/24 17:29 Last Admin: 08/21/24 08:30 Dose: 6.25 mg Dextrose (Dextrose 50%-Water Inj 50 Ml Syringe) 50 ml IV Q15MIN PRN PRN Reason: BG <50 OR BG <70 & pt unresponsive Stop: 09/13/24 15:03 Ferrous Sulfate (Ferrous Sulf 325 Mg Tablet) 325 mg PO QOD WAYNE Stop: 09/14/24 07:14 Last Admin: 08/21/24 08:28 Dose: 325 mg Furosemide (Furosemide Inj 10 Mg/Ml 4ml Vial) 40 mg IVP QDAY WAY[facility] Stop: 09/18/24 08:59 Last Admin: 08/21/24 08:33 Dose: 40 mg Glucagon (Glucagon Inj 1 Mg Vial) 1 mg IM Q15MIN PRN PRN Reason: BG <70, and no IV access Ceftriaxone Sodium/Dextrose (Rocephin/D5w 2gm) 2 gm in 50 mls @ 100 mls/hr IV QDAY [facility] Stop: 08/24/24 08:59 Last Admin: 08/21/24 08:34 Dose: 100 mls/hr Octreotide Acetate 1,000 mcg/ (Sodium Chloride) 102 mls @ 5.1 mls/hr IV .Q20H WAYNE; Protocol Stop: 09/14/24 11:59 Last Admin: 08/20/24 13:35 Dose: 50 mcg/hr, 5.1 mls/hr Insulin Glargine (Insulin Glargine (Lantus) 5 Unit/0.05 Ml (Per 5 Units)) 18 unit SC HS [facility] Stop: 09/20/24 20:59 Insulin Human Lispro (Insulin Lispro (Admelog) 1 Unit/0.01 Ml Unit) 0 unit SC AC [facility]; Protocol Stop: 09/15/24 16:59 Last Admin: 08/21/24 12:30 Dose: Not Given Insulin Human Lispro (Insulin Lispro (Admelog) 1 Unit/0.01 Ml Unit) 2 unit SC AC [facility] Stop: 09/20/24 11:29 Last Admin: 08/21/24 12:28 Dose: 2 unit Lidocaine (Lidocaine 5% 1 Patch) 1 patch TOP UD PRN; Protocol PRN Reason: LT shoulder Pain Stop: 09/15/24 15:31 Menthol/Methyl Salicylate (Methyl Salic/Menthol Oint 28 Gm Tube) 1 appl TOP QID PRN; Protocol PRN Reason: ARTHRITIS Stop: 09/15/24 08:35 Last Admin: 08/17/24 00:02 Dose: 1 applicatio Ondansetron HCl (Ondansetron Inj 2 Mg/Ml Inj 2 Ml) 4 mg IVP Q6H PRN; Protocol PRN Reason: NAUSEA OR VOMITING Stop: 09/13/24 14:53 Pantoprazole Sodium (Pantoprazole Inj 40 Mg Vial) 40 mg IVP BID [facility] Stop: 09/13/24 20:59 Last Admin: 08/21/24 08:32 Dose: 40 mg Potassium Phos/Sodium Phos (Naph,[facility] Mbdb 1 Packet (1.5 Gm)) 1 packet PO BID [facility] Stop: 09/17/24 08:59 Last Admin: 08/21/24 08:31 Dose: 1 packet Promethazine HCl/Dextromethorphan (Promethazine/Dm Syrup 5 Ml Dose) 10 ml PO Q6HR PRN; Protocol PRN Reason: COUGH Stop: 09/18/24 21:58 Last Admin: 08/19/24 22:05 Dose: 10 ml Spironolactone (Spironolactone 25 Mg Tablet) 50 mg PO QDAY [facility] Stop: 09/16/24 11:14 Last Admin: 08/21/24 08:29 Dose: 50 mg Discontinued Medications Acetaminophen (Acetaminophen 325 Mg Tablet) 650 mg PO Q6H PRN PRN Reason: Fever >101.5 Stop: 09/13/24 14:53 Calcium Carbonate (Calcium Carbonate 600 Mg Tablet) 600 mg PO X1 ONE Stop: 08/16/24 15:38 Last Admin: 08/16/24 16:28 Dose: 600 mg Carvedilol (Carvedilol 3.125 Mg Tablet) 3.125 mg PO BIDWM [facility] Stop: 09/17/24 17:29 Last Admin: 08/20/24 08:29 Dose: 3.125 mg Carvedilol (Carvedilol 3.125 Mg Tablet) 3.125 mg PO X1 ONE Stop: 08/20/24 09:48 Last Admin: 08/20/24 10:33 Dose: 3.125 mg Dextrose (Dextrose 50%-Water Inj 50 Ml Syringe) 25 ml IV Q15MIN PRN PRN Reason: BG 50-70 responsive npo pt Stop: 09/13/24 15:03 Diclofenac Sodium (Diclofenac 1% Top Gel 100 Gm Tube) 2 gm TOP QID [facility] Stop: 09/15/24 16:59 Last Admin: 08/16/24 15:46 Dose: Not Given Epoetin Pramod (Epoetin Pramod Inj 1,000 Unit/0.05 Ml Unit) 10,000 unit SC X1 ONE Stop: 08/18/24 14:01 Last Admin: 08/18/24 14:30 Dose: 10,000 unit Furosemide (Furosemide Inj 10 Mg/Ml 4ml Vial) 40 mg IVP X1 ONE Stop: 08/18/24 09:21 Last Admin: 08/18/24 10:06 Dose: 40 mg Norepinephrine/Dextrose (Levophed In D5w 8mg/250ml) 8 mg in 250 mls @ 6.634 mls/hr IV .Q24H PRN; Protocol PRN Reason: PER PROTOCOL Stop: 09/13/24 08:24 Last Titration: 08/14/24 13:11 Dose: 0 mcg/kg/min, 0 mls/hr Albumin Human (Albuminar-25 Ivpb) 25 gm in 100 mls @ 100 mls/hr IV X1 ONE Stop: 08/14/24 09:25 Last Infusion: 08/14/24 09:47 Dose: Infused Sodium Chloride (Ns) 250 mls @ 999 mls/hr IV .Q16M ONE Stop: 08/14/24 08:41 Last Infusion: 08/14/24 09:23 Dose: Infused Sodium Chloride (Ns) 250 mls @ 999 mls/hr IV .Q16M ONE Stop: 08/14/24 10:13 Last Admin: 08/14/24 10:09 Dose: Not Given Albumin Human (Albuminar-25 Ivpb) 25 gm in 100 mls @ 100 mls/hr IV X1 ONE Stop: 08/14/24 11:59 Last Infusion: 08/14/24 11:18 Dose: Infused Magnesium Sulfate (Magnesium Sulfate Ivpb) 4 gm in 50 mls @ 12.5 mls/hr IV X1 ONE Stop: 08/14/24 14:32 Last Infusion: 08/14/24 15:30 Dose: Infused Sodium Chloride (Ns) 500 mls @ 999 mls/hr IV .Q31M ONE Stop: 08/14/24 12:39 Last Infusion: 08/14/24 13:35 Dose: Infused Octreotide Acetate 1,000 mcg/ (Sodium Chloride) 102 mls @ 5.1 mls/hr IV .Q20H WAY[facility]; Protocol Stop: 08/15/24 10:53 Last Admin: 08/14/24 16:29 Dose: 50 mcg/hr, 5.1 mls/hr Ceftriaxone Sodium/Dextrose (Rocephin/D5w 1gm Iv Premix) 1 gm in 50 mls @ 100 mls/hr IV QDAY [facility] Stop: 08/21/24 14:56 Last Infusion: 08/17/24 07:33 Dose: Infused Octreotide Acetate 1,000 mcg/ (Sodium Chloride) 102 mls @ 5.1 mls/hr IV .Q20H [facility]; Protocol Stop: 09/14/24 11:59 Last Admin: 08/17/24 04:30 Dose: 50 mcg/hr, 5.1 mls/hr Albumin Human (Albuminar-25 Ivpb) 25 gm in 100 mls @ 100 mls/hr IV X1 ONE Stop: 08/14/24 19:01 Last Admin: 08/14/24 18:08 Dose: 100 mls/hr Norepinephrine/Dextrose (Levophed In D5w 8mg/250ml) 8 mg in 250 mls @ 6.634 mls/hr IV .Q24H PRN; Protocol PRN Reason: PER PROTOCOL Stop: 09/13/24 18:19 Last Titration: 08/15/24 22:00 Dose: 0 mcg/kg/min, 0 mls/hr Magnesium Sulfate (Magnesium Sulfate Ivpb) 2 gm in 50 mls @ 25 mls/hr IV X1 ONE Stop: 08/15/24 08:46 Last Infusion: 08/15/24 11:20 Dose: Infused Albumin Human (Albuminar-25 Ivpb) 25 gm in 100 mls @ 100 mls/hr IV Q6HR [facility] Stop: 08/18/24 06:59 Last Admin: 08/18/24 06:18 Dose: 100 mls/hr Albumin Human (Albuminar-25 Ivpb) 25 gm in 100 mls @ 100 mls/hr IV Q1H [facility] Stop: 08/15/24 16:44 Last Admin: 08/15/24 15:52 Dose: 100 mls/hr Ceftriaxone Sodium/Dextrose (Rocephin/D5w 1gm Iv Premix) 1 gm in 50 mls @ 100 mls/hr IV X1 ONE Stop: 08/16/24 11:14 Last Infusion: 08/17/24 07:33 Dose: Infused Magnesium Sulfate (Magnesium Sulfate Ivpb) 2 gm in 50 mls @ 25 mls/hr IV X1 ONE Stop: 08/16/24 17:36 Last Infusion: 08/17/24 07:33 Dose: Infused Magnesium Sulfate (Magnesium Sulfate Ivpb) 4 gm in 50 mls @ 12.5 mls/hr IV X1 ONE Stop: 08/18/24 11:11 Last Admin: 08/18/24 08:42 Dose: 12.5 mls/hr Magnesium Sulfate (Magnesium Sulfate Ivpb) 4 gm in 50 mls @ 12.5 mls/hr IV X1 ONE Stop: 08/18/24 11:26 Last Admin: 08/18/24 07:36 Dose: Not Given Ferumoxytol 510 mg/ Sodium (Chloride) 117 mls @ 234 mls/hr IV X1 ONE Stop: 08/18/24 08:44 Last Admin: 08/18/24 10:08 Dose: 234 mls/hr Insulin Glargine (Insulin Glargine (Lantus) 5 Unit/0.05 Ml (Per 5 Units)) 10 unit SC X1 ONE Stop: 08/14/24 12:11 Last Admin: 08/14/24 12:29 Dose: 10 unit Insulin Glargine (Insulin Glargine (Lantus) 5 Unit/0.05 Ml (Per 5 Units)) 16 unit SC [facility] Stop: 09/14/24 20:59 Last Admin: 08/15/24 21:17 Dose: 16 unit Insulin Glargine (Insulin Glargine (Lantus) 5 Unit/0.05 Ml (Per 5 Units)) 20 unit SC [facility] Stop: 09/15/24 20:59 Last Admin: 08/19/24 20:39 Dose: 20 unit Insulin Glargine (Insulin Glargine (Lantus) 5 Unit/0.05 Ml (Per 5 Units)) 25 unit SC [facility] Stop: 09/19/24 20:59 Insulin Glargine (Insulin Glargine (Lantus) 5 Unit/0.05 Ml (Per 5 Units)) 20 unit SC [facility] Stop: 09/19/24 20:59 Last Admin: 08/20/24 20:41 Dose: 20 unit Insulin Human Lispro (Insulin Lispro (Admelog) 1 Unit/0.01 Ml Unit) 7 unit SC X1 ONE Stop: 08/14/24 09:57 Last Admin: 08/14/24 10:14 Dose: 7 unit Insulin Human Lispro (Insulin Lispro (Admelog) 1 Unit/0.01 Ml Unit) 10 unit SC X1 ONE Stop: 08/14/24 12:11 Last Admin: 08/14/24 12:28 Dose: 10 unit Insulin Human Lispro (Insulin Lispro (Admelog) 1 Unit/0.01 Ml Unit) 0 unit SC AC [facility]; Protocol Stop: 09/13/24 16:59 Insulin Human Lispro (Insulin Lispro (Admelog) 1 Unit/0.01 Ml Unit) 0 unit SC AC [facility]; Protocol Stop: 09/13/24 16:59 Last Admin: 08/14/24 18:25 Dose: 5 unit Insulin Human Lispro (Insulin Lispro (Admelog) 1 Unit/0.01 Ml Unit) 0 unit SC [facility]; Protocol Stop: 09/14/24 07:29 Last Admin: 08/16/24 11:18 Dose: 3 unit Insulin Human Lispro (Insulin Lispro (Admelog) 1 Unit/0.01 Ml Unit) 2 unit SC [facility] Stop: 09/15/24 16:59 Insulin Human Lispro (Insulin Lispro (Admelog) 1 Unit/0.01 Ml Unit) 5 unit SC [facility] Stop: 09/15/24 16:59 Insulin Human Lispro (Insulin Lispro (Admelog) 1 Unit/0.01 Ml Unit) 5 unit SC AC [facility] Stop: 09/15/24 16:59 Last Admin: 08/21/24 07:32 Dose: Not Given Lactulose (Lactulose Syrup 20 Gm/30 Ml Udc) 20 gm PO QDAY [facility]; Protocol Stop: 09/14/24 08:59 Last Admin: 08/15/24 08:53 Dose: 20 gm Lidocaine (Lidocaine 5% 1 Patch) 1 patch TOP X1 ONE Stop: 08/16/24 13:55 Last Admin: 08/16/24 14:15 Dose: 1 patch Midodrine (Midodrine 5 Mg Tablet) 10 mg PO TID [facility] Stop: 09/13/24 08:29 Last Admin: 08/14/24 16:03 Dose: 10 mg Midodrine (Midodrine 5 Mg Tablet) 15 mg PO TID [facility] Stop: 09/13/24 21:59 Last Admin: 08/15/24 05:51 Dose: 15 mg Midodrine (Midodrine 5 Mg Tablet) 15 mg PO Q6H [facility] Stop: 09/14/24 10:14 Last Admin: 08/16/24 12:06 Dose: Not Given Midodrine (Midodrine 5 Mg Tablet) 15 mg PO Q6H [facility] Stop: 09/14/24 10:14 Last Admin: 08/16/24 12:09 Dose: Not Given Midodrine (Midodrine 5 Mg Tablet) 10 mg PO TID PRN PRN Reason: SBP <99 Stop: 09/15/24 21:59 Sodium Polystyrene Sulfonate (Sod Polystyrene Sulfon Susp 15 Gm/60 Ml Btl) 15 gm PO X1 ONE Stop: 08/16/24 09:01 Last Admin: 08/16/24 08:29 Dose: 15 gm Assessment & Plan Plan Patient is a 63 years old female with past medical history of diabetes, hyperlipidemia, hypertension, cryptogenic cirrhosis presented to the ED due to worsening shortness of breath, due to loud systolic murmur echo was done showed mild to moderate , mean gradient 18 mmHg, JORGE 1 cm?, cardiology was consulted for further management of . #Aortic stenosis. On exam loud systolic murmur over aortic area. Echo showed Normal LV size and wall thickness, Estimated EF 65%.Moderately increased LA volume 39 mL/m?. Moderate thickening of the AV. Mild to moderate , mean gradient 18 mmHg, JORGE 1 cm?. Cardiology was consulted for further management of . Plan: - follow up with Dr. Clark in 1 week for further planning of aortic stenosis repair. Management of other problems as per primary team. Plan of care discussed with attending Dr. Clark. Everardo Singh MD, PGY 2. Disclaimer: This note was dictated by speech recognition. Minor errors in carbonizer may be present due to voice recognition software. Attending Provider Attestation/Addendum I have personally seen and examined the patient separately on the above date of service and discussed the plan of care with the resident. I reviewed the resident Dr. Mcgee consultation progress note and agree with the resident findings and plan in the note above and have also edited the documentation to reflect my findings and plan. Sahil Clark M.D. Interventional Cardiology
--- NOTE | 2024-08-21 11:46 | PC.NURSE ---
Compensator Worker Dr. Clark in to see pt
--- NOTE | 2024-08-21 12:09 | ESDS_ITS ---
Planned Discharge Date 08/21/24 DS: Providers Provider Date of admission: 08/14/24 14:54 Primary care physician: Kaylie Montes MD Admitting Provider: Maria T Harris DO Attending Provider on Admission: Maria T Harris DO Consults: 08/14/24 15:04 Referral Registered Dietitian Routine Comment: 08/14/24 18:16 Consult to Harvest Manager Routine Comment: Hypotension. Cirrhosis Consulting Provider: Heather Story 08/16/24 10:35 Consult to Nephrology Routine Comment: Consulting Provider: Chapin De Paz Instructions: Concern for Hepato-renal Syndrome, small improved over the last 3 hours in urine output 08/17/24 09:09 Referral Physical Therapy Routine Comment: Physician Instructions: 08/21/24 09:23 Consult to Cardiology Routine Comment: mod-severe Consulting Provider: Sahil Clark Attending Provider on DC: Olu Leiva MD Discharging Provider: Olu Leiva MD DS: Diagnosis Problem List Completed Was Problem List Reviewed/Reconciled?: Yes Hospital Course Hospital Course Hospital course: 63-year-old female with past medical history of diabetes, cryptogenic cirrhosis presented to the ED on 08/14 due to shortness of breath. In the ED, patient was in distributive shock with blood pressure 56/37, heart rate 64, respiratory rate 20 and saturating 97 on room air. Patient was requiring Levophed via peripheral lines and given IV fluid boluses with MAP sustaining slightly above 65. Later that day, patient was upgraded to ICU as she required paracentesis for ascites noted secondary to cirrhosis. During hospitalization, patient also developed hepatorenal syndrome and nephrology was consulted for recommendations. Patient was started on octreotide and was given IV albumin for volume resuscitation. On 08/16, patient was downgraded back to regular hospital floors. Paracentesis results were positive for spontaneous bacterial peritonitis the patient's IV antibiotics were upgraded to cover current infection. Patient's kidney function gradually improved with the management as stated above. Patient also found to have murmur on examination and echocardiogram noted moderate to severe aortic stenosis. Cardiology was consulted for recommendations and for close follow-up. There was a rapid response on 08/18 for the patient desaturating on ambulation; moreover, as such patient was given IV diuretics which improved oxygenation saturation. Patient completed IV antibiotic regimen for SBP and remains asymptomatic at this time. Will discharge with the following strict instructions. Please take Carvedilol 3.125 mg by mouth twice a day with meals to prevent esophageal varice bleeding Please continue to take Spironolactone 50 mg by mouth once a day along with Lasix 40 mg by mouth a day Please take ferrous sulfate (iron supplements) 325 mg tablet by mouth twice a day Hold Losartan 50mg by mouth daily until you are seen by your primary care proider; if your blood pressure is high you may to need to restart it Please follow-up with your primary care provider within 1-2 weeks after discharge - ask for repeat liver function tests to be ordered Please follow-up with GI for likely need for liver transplantation You will need a referral to see Cardiology outpatient for your moderate-severe Aortic Stenosis. Continue all other home medications as prescribed If your symptoms worsen or if you develop new chest pain, shortness of breath, dizziness or abdominal pain - please come back to the ED immediately. Hospital Diagnosis: #Decompensated liver cirrhosis with ascites #Hepatopulmonary syndrome? #Portal hypertension #Thrombocytopenia #Hepatorenal syndrome type II #Acute kidney injury, resolved #Shock, resolved #Moderate to severe aortic stenosis #Insulin-dependent type 2 diabetes #Anemia of chronic disease Olu Leiva DO PGY-1 Internal Medicine - [facility] Status at Discharge Overall status at discharge: patient is progressing back to baseline Time Spent with Patient Time attestation: Total time spent providing and/or coordinating discharge services: 29 minutes Time spent: Less than 30 minutes Exam Vital Signs Temp Pulse Resp BP Pulse Ox O2 Del Method O2 Flow Rate 98.4 F 69 18 126/61 93 L Nasal Cannula 1 08/21/24 11:56 08/21/24 11:56 08/21/24 11:56 08/21/24 11:56 08/21/24 11:56 08/21/24 11:56 08/21/24 11:56 FiO2 70 08/20/24 20:00 Narrative Exam Physical Exam: GENERAL: Awake, answering questions appropriately, appears stated age HEENT: NC/AT. Moist mucosa. PERRLA/EOMI. CARDIO: Heart RRR, no obvious murmurs, no JVD. PULM: No coughing or visible SOB. Lungs CTA B/L. GI: Abdomen soft, nondistended, no fluid wave noted, borborygmi apparent, no guarding or rebound tenderness. SKIN/MSK/EXT: No wounds/discoloration/rashes/edema/amputations. +Pedal pulses present B/L. NEURO: Oriented x3, Moves extremities x4, no focal neurologic deficits noted Discharge Plan Plan Patient Disposition: Home w/HOME HEALTH Patient condition on transfer: Stable Care Plan Goals: Please take Carvedilol 3.125 mg by mouth twice a day with meals to prevent esophageal varice bleeding Please continue to take Spironolactone 50 mg by mouth once a day along with Lasix 40 mg by mouth a day Please take ferrous sulfate (iron supplements) 325 mg tablet by mouth twice a day Hold Losartan 50mg by mouth daily until you are seen by your primary care proider; if your blood pressure is high you may to need to restart it Please follow-up with your primary care provider within 1-2 weeks after discharge - ask for repeat liver function tests to be ordered Please follow-up with GI for likely need for liver transplantation Follow up with Cardiology outpatient for your moderate-severe Aortic Stenosis. Continue all other home medications as prescribed If your symptoms worsen or if you develop new chest pain, shortness of breath, dizziness or abdominal pain - please come back to the ED immediately. Prescriptions/Referrals Prescriptions/Med Rec: New carvedilol 3.125 mg Tablet 3.125 mg PO BIDWM 30 Days Qty: 60 0RF Continued metformin [Glucophage] 500 MG tablet 1,000 mg PO BIDAC Qty: 0 simvastatin [Zocor] 10 MG tablet 10 mg PO HS Qty: 0 hydrocodone-ibuprofen 7.5-200 mg Tablet 1 tab PO TID PRN (Reason: Pain) temazepam 30 mg capsule 30 mg PO QHSPRN PRN (Reason: Anxiety) Patient Comments: TAKE 1 CAPSULE BY MOUTH AT BEDTIME NEEDED nateglinide 120 mg Tablet 120 mg PO TID Rx Instructions: give before meal(s) insulin glargine [Lantus Solostar U-100 Insulin] 100 unit/mL (3 mL) insulin pen 10 unit SUBCUT QDAY furosemide 40 mg tablet 40 mg PO .AM Patient Comments: TAKE 1 TABLET BY MOUTH IN THE MORNING insulin glargine-yfgn [Semglee(insulin glarg-yfgn)Pen] 100 unit/mL (3 mL) insulin pen 10 unit SUBCUT DAILY Patient Comments: INJECT 10 UNITS SUBCUTANEOUSLY ONCE DAILY folic acid 1 mg tablet 1 mg PO QDAY spironolactone 50 mg tablet 50 mg PO .am 30 Days Qty: 30 0RF ferrous sulfate [FeroSul] 325 mg (65 mg iron) tablet 325 mg PO BID 30 Days Qty: 60 0RF Held losartan 50 mg tablet 50 mg PO QDAY Hold Instructions: Resume on 08/31/24. Restart if your PCP says you need additional agent for blood pressure control Patient Comments: TAKE 1 TABLET BY MOUTH ONCE DAILY Referrals: Sahil Clark MD [Physician] - Jarad Pérez MD [Physician] - Kaylie Montes MD [Primary Care Provider] - Patient/Caregiver Discharge Instructions Meds to Beds: Yes Discharge Activity: resume usual activities Education Materials: Treating Cirrhosis, Understanding Cirrhosis Print Language: Yoruba Activity Restrictions/Additional Instructions: Please follow up with Dr. De Paz in 1-2 weeks: -Address: [address] [place] [id number] - Stand Alone Forms: Daisha Award Info., Patient Portal Info Letter Discharge Order Discharge Orders: Discharge (Routine); Ordered 08/21/24 Ordered By: Olu Leiva Quality Discharge Quality Measures VTE prophylaxis Attestestation Attestation I attest that I was physically present for the evaluation, physical examination, lab and imaging review of the patient with the residents. I discussed the case with the residents and agree with the findings and plans of care as documented above. Lico Arriola MD
[2024-08-21] MEDS: INSULIN LISPRO (AdmeLOG) 1 UNIT/0.01 ML UNIT 2 UNIT SC (12:28)
--- NOTE | 2024-08-22 09:01 | PC.CC ---
HH ref sent to [facility] pt has Ecal/[facility]. waiting for response
--- NOTE | 2024-08-23 10:20 | PC.CC ---
[facility] accepted and booked, SOC 08/25/24
== END 2024-08-21 14:45 | disposition home health service (06) | DRG 432 ==
LOC: SERX 14:08 → SERHOLD 15:52 → S2NX 17:53 → S2SX 08-16 09:37 → S2NX 08-17 06:26 → S3NX 08-20 21:25
PROVIDERS: Nurse Practitioner Primary Care; Student in an Organized Health Care Education/Training Program; Admitting Provider Internal Medicine; Emergency Provider Student in an Organized Health Care Education/Training Program; PCP Internal Medicine; Visit Provider Internal Medicine
DX: K74.69 Other cirrhosis of liver (principal); K65.2 Spontaneous bacterial peritonitis; K76.7 Hepatorenal syndrome; R57.8 Other shock; K72.00 Acute and subacute hepatic failure without coma; R18.8 Other ascites; N17.9 Acute kidney failure, unspecified; E87.20 Acidosis, unspecified; D68.9 Coagulation defect, unspecified; K76.6 Portal hypertension; E87.1 Hypo-osmolality and hyponatremia; I85.10 Secondary esophageal varices without bleeding; E11.65 Type 2 diabetes mellitus with hyperglycemia; D63.8 Anemia in other chronic diseases classified elsewhere; D69.59 Other secondary thrombocytopenia; I35.0 Nonrheumatic aortic (valve) stenosis; Z79.4 Long term (current) use of insulin; D50.9 Iron deficiency anemia, unspecified; E78.5 Hyperlipidemia, unspecified; I27.20 Pulmonary hypertension, unspecified; E87.8 Other disorders of electrolyte and fluid balance, not elsewhere classified; I10 Essential (primary) hypertension; E87.70 Fluid overload, unspecified; K76.81 Hepatopulmonary syndrome; Z79.899 Other long term (current) drug therapy
CPT/HCPCS: 36415; 36600; 71045; 80053; 80074; 80307; 81001; 82010; 82042; 82140; 82150; 82728; 82803; 82945; 83036; 83540; 83550; 83605; 83615; 83690; 83735; 83880; 84100; 84132; 84145; 84157; 84484; 85014; 85018; 85025; 85610; 85730; 87040; 87081; 89051; 93005; 93225; 93306; 96365; 96366; 96367; 96372; 97162; 99291; J0696; J1815; J1938; J2354; J2470; J3475; J3490; J7040; J7050; P9047; Q0138; Q4081; A9270

== ENCOUNTER → 2024-08-24 | Outpatient (CLI) | payer OTHER, SELFPAY ==
[2024-08-24 13:45] LABS: Basophils # (Auto) 0.1 Thou/mm3 (0.0-0.2); Basophils % (Auto) 1 % (0-2.5); Eosinophils # (Auto) 0.3 Thou/mm3 (0.0-0.5); Eosinophils % (Auto) 6 % (0-10); Hematocrit 23.5 % (36.0-46.0); Immature Granulocytes % (Auto) 1 % (0-0); Immature Granulocytes Auto 0.04 Thou/mm3 (0.00-0.00); Lymphocytes # (Auto) 0.8 Thou/mm3 (1.0-4.8); Lymphocytes % (Auto) 17 % (10-50); Mean Corpuscular HGB Conc 33.6 g/dl (31.0-37.0); Mean Corpuscular Hemoglobin 35.3 pg (25.0-35.0); Mean Corpuscular Volume 105 fL (80-100); Monocytes # (Auto) 0.4 Thou/mm3 (0.0-0.8); Monocytes % (Auto) 9 % (0-12); Neutrophils # (Auto) 3.2 Thou/mm3 (1.8-7.7); Neutrophils % (Auto) 66 % (37-80); Nucleated Red Blood Cell % 0 /100 WBC (0); RDW Standard Deviation 69.7 fL (36.4-46.3); Red Blood Count 2.24 Miln/mm3 (4.00-5.20); White Blood Count 4.8 Thou/mm3 (3.6-11.0)
[2024-08-24 13:56] LABS: Hemoglobin 7.9 g/dL (12.0-16.0); Platelet Count 77 Thou/mm3 (140-440)
[2024-08-24 13:57] LABS: Alanine Aminotransferase 14 U/L (10-49); Albumin, Serum 3.3 gm/dL (3.4-4.8); Albumin/Globulin Ratio 1.5 (1.2-2.2); Alkaline Phosphatase 69 U/L (46-116); Anion Gap 12 (7-16); Aspartate Amino Transferase 30 U/L (0-34); BUN/Creatinine Ratio 14 Ratio (12-20); Bilirubin,Total 4.2 mg/dL (0.3-1.2); Blood Urea Nitrogen 39 mg/dL (9-23); Calcium 8.1 mg/dL (8.3-10.6); Calcium (Corrected) 8.7 mg/dL (8.5-10.1); Chloride 102 mMol/L (98-107); Creatinine (Component) 2.8 mg/dL (0.6-1.3); Globulin 2.2 gm/dL (2.3-3.5); Glucose 377 mg/dL (74-106); Osmolality,Calculated 296 (275-295); Potassium 5.5 mMol/L (3.4-5.1); Sodium 136 mMol/L (136-145); Total Protein 5.5 gm/dL (5.7-8.2); eGFR 18 See Note
[2024-08-24 15:26] LABS: Slide Review Platelets confirmed
== END | disposition home or self-care (01) ==
LOC: COPL 11:50
PROVIDERS: PCP Internal Medicine; Referring Provider Specialist; Visit Provider Specialist
DX: E11.9 Type 2 diabetes mellitus without complications (principal); R18.8 Other ascites
CPT/HCPCS: 36415; 80053; 85025

== ENCOUNTER → 2024-09-06 | Outpatient (CLI) | payer OTHER, SELFPAY ==
[2024-09-06 10:53] LABS: Basophils % (Auto) 1 % (0-2.5); Eosinophils # (Auto) 0.2 Thou/mm3 (0.0-0.5); Eosinophils % (Auto) 6 % (0-10); Hematocrit 25.1 % (36.0-46.0); Immature Granulocytes % (Auto) 1 % (0-0); Immature Granulocytes Auto 0.03 Thou/mm3 (0.00-0.00); Lymphocytes # (Auto) 1.1 Thou/mm3 (1.0-4.8); Lymphocytes % (Auto) 30 % (10-50); Mean Corpuscular HGB Conc 34.7 g/dl (31.0-37.0); Mean Corpuscular Hemoglobin 34.5 pg (25.0-35.0); Mean Corpuscular Volume 100 fL (80-100); Monocytes # (Auto) 0.4 Thou/mm3 (0.0-0.8); Monocytes % (Auto) 10 % (0-12); Neutrophils # (Auto) 1.8 Thou/mm3 (1.8-7.7); Neutrophils % (Auto) 51 % (37-80); Nucleated Red Blood Cell % 0 /100 WBC (0); RDW Standard Deviation 67.6 fL (36.4-46.3); Red Blood Count 2.52 Miln/mm3 (4.00-5.20); White Blood Count 3.5 Thou/mm3 (3.6-11.0)
[2024-09-06 11:08] LABS: Hemoglobin 8.7 g/dL (12.0-16.0); Platelet Count 68 Thou/mm3 (140-440)
[2024-09-06 11:20] LABS: Alanine Aminotransferase 18 U/L (10-49); Albumin, Serum 3.4 gm/dL (3.4-4.8); Albumin/Globulin Ratio 1.3 (1.2-2.2); Alkaline Phosphatase 246 U/L (46-116); Anion Gap 11 (7-16); Aspartate Amino Transferase 29 U/L (0-34); BUN/Creatinine Ratio 20 Ratio (12-20); Bilirubin,Total 3.1 mg/dL (0.3-1.2); Blood Urea Nitrogen 44 mg/dL (9-23); Calcium 9.4 mg/dL (8.3-10.6); Calcium (Corrected) 9.9 mg/dL (8.5-10.1); Carbon Dioxide 21.8 mMol/L (20.0-31.0); Chloride 99 mMol/L (98-107); Creatinine (Component) 2.2 mg/dL (0.6-1.3); Globulin 2.7 gm/dL (2.3-3.5); Osmolality,Calculated 300 (275-295); Potassium 4.7 mMol/L (3.4-5.1); Sodium 132 mMol/L (136-145); Total Protein 6.1 gm/dL (5.7-8.2); eGFR 24 See Note
[2024-09-06 11:21] LABS: Glucose 549 mg/dL (74-106)
[2024-09-06 12:45] LABS: Slide Review Platelets confirmed
== END | disposition home or self-care (01) ==
PROVIDERS: PCP Internal Medicine; Referring Provider Specialist; Visit Provider Specialist
DX: E11.9 Type 2 diabetes mellitus without complications (principal); R18.8 Other ascites
CPT/HCPCS: 36415; 80053; 85025

== ENCOUNTER 2024-09-07 08:38 | Inpatient (IN) | payer OTHER, MEDICARE, SELFPAY ==
[2024-09-07] VITALS (21 sets, daily range): BP systolic 119–153; BP diastolic 49–70; PULSE 61–89; RESP 8–99; TEMP 36.4–36.8; O2SAT 97–100; BMI 27.8
--- NOTE | 2024-09-07 09:24 | XR_ITS ---
Examination: AP chest single view Technique one AP portable upright chest single view Date and time: September 07, 2024 0950 hours Comparison August 18, 2024 INDICATIONS: Coughing beginning today. FINDINGS: Mild heart failure Mild to moderate enlargement cardiac contour. Prominent vascular congestion No lobar pneumonia Prominent osteopenia IMPRESSION: Mild heart failure
--- NOTE | 2024-09-07 09:24 | EKG_ITS ---
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
[2024-09-07] MEDS: SODIUM CHLORIDE 0.9% 1000 ML 1,000 ML 100 ML IV (09:56)
[2024-09-07 10:18] LABS: Basophils % (Auto) 1 % (0-2.5); Eosinophils # (Auto) 0.1 Thou/mm3 (0.0-0.5); Eosinophils % (Auto) 4 % (0-10); Hematocrit 22.8 % (36.0-46.0); Immature Granulocytes % (Auto) 1 % (0-0); Immature Granulocytes Auto 0.01 Thou/mm3 (0.00-0.00); Lactate (Lactic Acid) 1.5 mMol/L (0.4-2.0); Lymphocytes # (Auto) 0.7 Thou/mm3 (1.0-4.8); Lymphocytes % (Auto) 34 % (10-50); Mean Corpuscular HGB Conc 34.2 g/dl (31.0-37.0); Mean Corpuscular Hemoglobin 34.5 pg (25.0-35.0); Mean Corpuscular Volume 101 fL (80-100); Monocytes # (Auto) 0.2 Thou/mm3 (0.0-0.8); Monocytes % (Auto) 12 % (0-12); Neutrophils % (Auto) 51 % (37-80); Nucleated Red Blood Cell % 0 /100 WBC (0); Red Blood Count 2.26 Miln/mm3 (4.00-5.20)
[2024-09-07 10:21] LABS: Hemoglobin 7.8 g/dL (12.0-16.0); Platelet Count 45 Thou/mm3 (140-440)
[2024-09-07 10:40] LABS: INR 1.6 (0.9-1.3); Partial Thromboplastin Time 36.2 Seconds (22.0-36.0); Prothrombin Time 17.4 Seconds (9.0-12.2)
--- NOTE | 2024-09-07 10:41 | PD.EDADULT ---
ED General RME/HPI General Chief complaint: General Adult/Misc Complain Stated complaint: BLOOD TRANSFUSION; SENT BY DR PÉREZ Time Seen by Provider: 09/07/24 09:19 Arrival date/time: 09/07/24 08:38 Limitations: no limitations RME / HPI RME / HPI narrative: 63 year old female with history of hypertension, insulin-dependant type II diabetes, cryptogenic cirrhosis, iron deficiency anemia of chronic disease presents to the ED sent by GI Dr. Pérez for evaluation of worsening renal function and concerns for hepatorenal syndrome from yesterdays labs. While in the ED, patient reports bilateral leg swelling otherwise has no other complaints. Denies fevers, chills, sweats, chest pain, cough, abdominal pain, n/v. Per EMR review, patient was admitted here from 08/14/2024 through 08/22/2024 for evaluation of shortness of breath. During admission, the patient was upgraded to the ICU due to persistent hypotension and underwent paracentesis for ascites. Analysis of the ascitic fluid confirmed SBP, which was treated with IV antibiotics. The patient subsequently developed hepatorenal syndrome. Additionally, oxygen desaturation was noted with ambulation, which improved following IV diuretics. Related Data Home Medications ?Medication ?Instructions ?Recorded ?Confirmed metformin 500 mg tablet 1,000 mg PO BIDAC #0 tabs 12/07/15 08/14/24 (Glucophage) simvastatin 10 mg tablet (Zocor) 10 mg PO HS #0 tabs 12/07/15 08/14/24 hydrocodone 7.5 mg-ibuprofen 200 1 tab PO TID PRN Pain 04/27/20 08/14/24 mg tablet insulin glargine 100 unit/mL (3 10 unit subcut QDAY 06/24/22 06/24/22 mL) subcutaneous pen (Lantus Solostar U-100 Insulin) losartan 50 mg tablet 50 mg PO QDAY 06/24/22 08/14/24 Held on 08/19/24. Instructions: Resume on 08/31/24. Restart if your PCP says you need additional agent for blood pressure control nateglinide 120 mg tablet 120 mg PO TID 06/24/22 08/14/24 temazepam 30 mg capsule 30 mg PO QHSPRN PRN Anxiety 06/24/22 08/14/24 folic acid 1 mg tablet 1 mg PO QDAY 08/14/24 08/14/24 furosemide 40 mg tablet 40 mg PO .AM 08/14/24 08/15/24 insulin glargine-yfgn 100 unit/mL 10 unit subcut DAILY 08/14/24 08/15/24 (3 mL) subcutaneous pen (Semglee (insulin glargine-yfgn) Pen) Previous Rx's ?Medication ?Instructions ?Recorded carvedilol 3.125 mg tablet 3.125 mg PO BIDWM 1 month #60 tabs 08/19/24 spironolactone 50 mg tablet 50 mg PO .am 1 month #30 tabs 08/19/24 ferrous sulfate 325 mg (65 mg 325 mg PO BID 1 month #60 tabs 08/21/24 iron) tablet (FeroSul) Allergies Allergy/AdvReac Type Severity Reaction Status Date / Time No Known Allergies Allergy Verified 09/07/24 08:41 Review of Systems Review of Systems Systems Reviewed: All systems reviewed, normal except as documented Past Medical History Past Medical History CARDIAC: Positive Hypercholesterolemia and Hypertension GASTROINTESTINAL: Positive Gastrointestinal Disorders, Cirrhosis and Hemorrhoids REPRODUCTIVE: Positive Previous Pregnancies MUSCULOSKELETAL: Positive Musculoskeletal Disorders, Arthritis and Carpal Tunnel Syndrome ENDOCRINE: Positive Endocrine Disorders and Diabetes Mellitus Type 2 HEMATOLOGIC: Positive Anemia OTHER HISTORY: Positive Hospitalization and Falls Family History FAMILY HISTORY: Negative Family Cardiac Disorders Surgical History SURGICAL: Positive Ear Surgery and Section Social History SMOKING STATUS: Former smoker SUBSTANCE USE: does not use ED Exam General Limitations: Present no limitations General appearance: Present alert, in no apparent distress and other (Pale ) Head Head exam: Present atraumatic, normocephalic and normal inspection Eye Eye exam: Present normal appearance, PERRL and EOMI ENT ENT exam: Present normal exam, normal oropharynx and mucous membranes moist Neck Neck exam: Present normal inspection, full ROM and trachea midline Chest Chest inspection: Present normal inspection and symmetric chest wall rise Respiratory Respiratory exam: Present normal lung sounds bilaterally Cardiovascular Cardiovascular exam: Present regular rate, normal rhythm, normal heart sounds and systolic murmur (holosystolic murmur) Abdominal Exam Abdominal exam: Present soft, distention, normal bowel sounds and hypoactive bowel sounds Extremities Exam Extremities exam: Present full ROM and other (+2 edema bilateral lower extremities) Back Exam Back exam: Present normal inspection and full ROM Neurological Exam Neurological exam: Present alert, oriented X3 and CN II-XII intact Psychiatric Psychiatric exam: Present normal affect and normal mood Skin Skin exam: Present warm, dry, intact and pallor Course Quality Measures none Orders Category Date Time Status COVID-19 Screening Questionnaire NOW Care 09/07/24 11:45 Active Supervisor Paper Machine NOW Care 09/07/24 09:24 Active Continuous Pulse Oximetry NOW Care 09/07/24 09:24 Completed Decision to Admit X1 Care 09/07/24 11:45 Completed EKG (ED ONLY) *Do not use* NOW Care 09/07/24 09:24 Completed Insert IV NOW Care 09/07/24 09:24 Active Consult to Gastroenterology Stat Cons 09/07/24 11:46 Ordered Consult to Nephrology Stat Cons 09/07/24 11:46 Ordered EKG (ED Only) Stat Exams 09/07/24 09:24 Draft XR chest 1V portable Stat Exams 09/07/24 09:24 Completed ABG [Arterial Blood Gas] Stat Lab 09/07/24 11:45 Completed Blood Culture (Lab) Stat Lab 09/07/24 10:10 Received CBC Stat Lab 09/07/24 10:03 Completed Comprehensive Metabolic Panel Stat Lab 09/07/24 10:03 Completed Ketone [Beta Hydroxybutyrate] Stat Lab 09/07/24 11:58 Completed Lactic Acid [Lactate (Lactic Acid)] Stat Lab 09/07/24 10:03 Completed Magnesium Stat Lab 09/07/24 10:03 Completed Partial Thromboplastin Time Stat Lab 09/07/24 10:03 Completed Path Review Blood Smear Stat Lab 09/07/24 10:03 Completed Phosphorous Stat Lab 09/07/24 10:03 Completed Prothrombin Time with INR Stat Lab 09/07/24 10:03 Completed Type and Screen Stat Lab 09/07/24 11:58 Received Urinalysis Stat Lab 09/07/24 11:15 Completed Insulin Reg 100 Units/100 ml [Myxredlin] Med 09/07/24 11:22 Active 100 unit in 100 ml IV 0.1 unit/kg/hr Insulin Regular Med 09/07/24 11:20 Discontinued 10 unit IV X1 ONE Sodium Chloride 0.9% 1000 ml [Ns] 1,000 ml Med 09/07/24 09:24 Active IV 100 mls/hr Sodium Chloride 0.9% 1000 ml [Ns] 1,000 ml Med 09/07/24 11:20 Discontinued IV 999 mls/hr Oxygen Delivery NOW RT 09/07/24 09:24 Active Vital Signs Vital signs: Vital Signs Temperature 98.3 F 09/07/24 08:47 Pulse Rate 89 09/07/24 08:47 Respiratory Rate 18 09/07/24 08:47 Blood Pressure 153/70 H 09/07/24 08:47 Pulse Oximetry (%) 99 09/07/24 08:47 Oxygen Delivery Method Room Air 09/07/24 08:47 Pulse ox is 99% on room air which is adequate. Critical Care Time Critical Care Time Critical Care Time: Yes Total Critical Care Time (min.): 90 Attestation: The high probability of sudden, clinically significant deterioration in the patient's condition required the highest level of my preparedness to intervene urgently. The services I provided to this patient were to treat and/or prevent clinically significant deterioration. Services included the following: chart data review, reviewing nursing notes and/or old charts, documentation time, cardiology consultant collaboration regarding findings and treatment options, medication orders and management, direct patient care, vital sign assessments and ordering, interpreting and reviewing diagnostic studies and lab tests. Aggregate critical care time includes only time during which I was engaged in work directly related to the patient's care, as described above, whether at bedside or elsewhere in the Emergency Department. It did not include time spent performing other reported procedures or the services of residents, students, nurses or physician assistants. Discharge Plan Plan Patient Disposition: Admit Acute Care w/in Hospital Discharge Disposition comment: ICU Prescriptions/Referrals Prescriptions/Med Rec: No Action metformin [Glucophage] 500 MG tablet 1,000 mg PO BIDAC Qty: 0 simvastatin [Zocor] 10 MG tablet 10 mg PO HS Qty: 0 hydrocodone-ibuprofen 7.5-200 mg Tablet 1 tab PO TID PRN (Reason: Pain) losartan 50 mg tablet 50 mg PO QDAY Patient Comments: TAKE 1 TABLET BY MOUTH ONCE DAILY temazepam 30 mg capsule 30 mg PO QHSPRN PRN (Reason: Anxiety) Patient Comments: TAKE 1 CAPSULE BY MOUTH AT BEDTIME NEEDED nateglinide 120 mg Tablet 120 mg PO TID Rx Instructions: give before meal(s) insulin glargine [Lantus Solostar U-100 Insulin] 100 unit/mL (3 mL) insulin pen 10 unit SUBCUT QDAY furosemide 40 mg tablet 40 mg PO .AM Patient Comments: TAKE 1 TABLET BY MOUTH IN THE MORNING insulin glargine-yfgn [Semglee(insulin glarg-yfgn)Pen] 100 unit/mL (3 mL) insulin pen 10 unit SUBCUT DAILY Patient Comments: INJECT 10 UNITS SUBCUTANEOUSLY ONCE DAILY folic acid 1 mg tablet 1 mg PO QDAY carvedilol 3.125 mg Tablet 3.125 mg PO BIDWM 30 Days Qty: 60 0RF spironolactone 50 mg tablet 50 mg PO .am 30 Days Qty: 30 0RF ferrous sulfate [FeroSul] 325 mg (65 mg iron) tablet 325 mg PO BID 30 Days Qty: 60 0RF Referrals: Kaylie Montes MD [Primary Care Provider] - In 1 week Problem List Clinical Impression: Hyperglycemia, Anemia, CKD (chronic kidney disease), Anasarca, Ascites Patient/Caregiver Discharge Instructions Print Language: Kenyan Stand Alone Forms: Daisha Award Info., Patient Portal Info Letter MDM Narrative [facility] hospital course: Marlena Samaniego am scribing for and in the presence of Dr. Hernandez. Clinical Information Provided by patient Medical Records Reviewed [facility] I reviewed admission from 08/14/2024 through 08/22/2024 as noted in HPI. Meds/Rx Considered, not Ordered None Labs/Rad/Tests considered, not Ordered None Chronic Illness/Social Conditions which may negatively complicate care or outcome(s)-explain: None or not applicable EKG Interpretation EKG #1: Date/time of EK09/07/24 09:53 am EKG interpretation: Sinus rhythm, rate 62, left axis deviation, right bundle branch block, no STEMI. Lab Interpretation Labs: see narrative above Imaging Imaging interpretation: see narrative above Radiology reports / interpretation(s): Ordering Physician: Gavin Hernandez MD Date of Service: 09/07/24 Procedure(s): XR chest 1V portable Accession Number(s): [id number] cc: Gavin Hernandez MD; Dion Mir MD~ Examination: AP chest single view Technique one AP portable upright chest single view Date and time: September 07, 2024 0950 hours Comparison August 18, 2024 INDICATIONS: Coughing beginning today. FINDINGS: Mild heart failure Mild to moderate enlargement cardiac contour. Prominent vascular congestion No lobar pneumonia Prominent osteopenia IMPRESSION: Mild heart failure Dictated By: Dion Mir MD Signed By: <Electronically signed by Dion Mir MD in OV> 09/07/24 0959 Medication Administration(s) Medication Administration History Sodium Chloride (Ns) 1,000 mls @ 100 mls/hr IV .Q10H ONE Stop: 09/07/24 19:23 Last Infusion: 09/07/24 11:37 Dose: 0 mls/hr Documented By: Admin: 09/07/24 09:56 Dose: 100 mls/hr Documented By: VG Insulin Human Regular (Myxredlin) 100 unit in 100 mls @ 6.668 mls/hr IV .Q15H PRN; Protocol PRN Reason: PER PROTOCOL Stop: 10/07/24 11:21 Last Titration: 09/07/24 12:42 Dose: 0.1 unit/kg/hr, 6.668 mls/hr Documented By: ALLEY Co-signed By: LF Admin: 09/07/24 11:42 Dose: 0.1 unit/kg/hr, 6.668 mls/hr Documented By: ALLEY Co-signed By: SHANTEL Discontinued Medications Sodium Chloride (Ns) 1,000 mls @ 999 mls/hr IV .Q1H1M ONE Stop: 09/07/24 12:20 Last Infusion: 09/07/24 12:43 Dose: Infused Documented By: Admin: 09/07/24 11:37 Dose: 999 mls/hr Documented By: ALLEY Insulin Human Regular (Insulin Hum Regular 1 Unit/0.01 Ml (Per Unit)) 10 unit IV X1 ONE Stop: 09/07/24 11:21 Last Admin: 09/07/24 11:41 Dose: 10 unit Documented By: ALLEY Co-signed By: AA See above Consultations/Discussions re: Management Consult #1: Date/time: 09/07/24 Physician, specialty, service, details: I spoke with GI Dr. Pérez. Discussed patients PMHx, HPI, ED course, exam findings, labs results. Recommends admission for worsening renal function and evolving hepatorenal syndrome. Asked that we consult with internet systems administrator Dr. De Paz and admit for further evaluation. Consult #2: Date/time: 09/07/24 Physician, specialty, service, details: I spoke with internet systems administrator Dr. De Paz. Discussed patients PMHx, HPI, ED course, exam findings, labs, and radiology results. She agrees to consult. Consult #3: Date/time: 09/07/24 11:35 AM Physician, specialty, service, details: I spoke with director security risk management Dr. Izaguirre. Discussed patients PMHx, HPI, ED course, exam findings, labs, and radiology results. He accepts the patient for admission to ICU. Diagnosis Most likely dx, and/or detailed dx discussion: Hyperglycemia Anemia CKD Anasarca Ascites Dispositon Disposition: Admit (to ICU )
[2024-09-07 10:46] LABS: Alanine Aminotransferase 20 U/L (10-49); Albumin, Serum 3.2 gm/dL (3.4-4.8); Albumin/Globulin Ratio 1.2 (1.2-2.2); Alkaline Phosphatase 278 U/L (46-116); Anion Gap 8 (7-16); Aspartate Amino Transferase 34 U/L (0-34); BUN/Creatinine Ratio 19 Ratio (12-20); Bilirubin,Total 3.1 mg/dL (0.3-1.2); Blood Urea Nitrogen 36 mg/dL (9-23); Calcium 9.2 mg/dL (8.3-10.6); Calcium (Corrected) 9.8 mg/dL (8.5-10.1); Carbon Dioxide 21.6 mMol/L (20.0-31.0); Chloride 96 mMol/L (98-107); Creatinine (Component) 1.9 mg/dL (0.6-1.3); Estimated Creatinine Clearance 25.8 mL/min (>60); Globulin 2.6 gm/dL (2.3-3.5); Magnesium 1.4 mg/dL (1.6-2.6); Osmolality,Calculated 300 (275-295); Phosphorous 4.5 mg/dL (2.4-5.1); Potassium 5.4 mMol/L (3.4-5.1); Sodium 126 mMol/L (136-145); Total Protein 5.8 gm/dL (5.7-8.2); eGFR 29 See Note
[2024-09-07 10:48] LABS: Glucose 802 mg/dL (74-106)
[2024-09-07 10:55] LABS: Path Review Blood Smear Sent to Pathologist; Slide Review Platelets confirmed
[2024-09-07 11:26] LABS: Collection Type, Urine Clean Catch
[2024-09-07] MEDS: SODIUM CHLORIDE 0.9% 1000 ML 1,000 ML 999 ML IV (11:37)
[2024-09-07] MEDS: INSULIN HUM REGULAR 1 UNIT/0.01 ML (PER UNIT) 10 UNIT IV (11:41)
[2024-09-07] MEDS: INSULIN REG 100 UNITS/100 ML 100 UNIT/100 ML BAG 6.668 UNIT IV (11:42)
[2024-09-07 11:47] LABS: Bilirubin,Urine Negative (Negative); Blood,Urine Negative (Negative); Clarity,Urine Clear (Clear/Hazy); Color,Urine Lt-Yellow (Lt Yel-Yel); Glucose, Urine 4+ (Negative); Ketones,Urine Negative (Negative); Leukocyte Esterase,Urine Negative (Negative); Nitrite,Urine Negative (Negative); Protein,Urine Negative (Neg - Trace); RBC,Urine 1 /hpf (0-3); Squamous Epithelial Cell,Urine 1 /hpf (0-5); Urobilinogen,Urine Negative mg/dL (0.0-1.0); WBC,Urine 1 /hpf (0-5)
[2024-09-07 11:55] LABS: Base Excess -5 (-3-3); HCO3 20 mEq/L (20-26); Inspired Oxygen, FIO2 21 %; O2 Saturation 98 % (91-98); PCO2 35 mmHg (32.0-48.0); PO2 86 mmHg (83-108); pH, Arterial 7.38 (7.35-7.45)
[2024-09-07 11:56] LABS: Allen Test Performed/OK; Puncture Site Left Radial
[2024-09-07 12:11] LABS: Beta Hydroxybutyrate 0.1 mmol/L (<0.6)
--- NOTE | 2024-09-07 13:25 | ESHP_ITS ---
<Statement entered by Dougie Izaguirre MD - 09/07/24 18:07> TOTAL CC TIME: 65 MIN I saw and evaluated the patient. I reviewed the resident?s note and agree with findings and plan as documented in the resident?s note. Upon my evaluation, this patient had a high probability of imminent or life- threatening deterioration due to HHS which required my direct attention, intervention, and personal management. This time is exclusive of time spent on procedures, which are documented separately if performed. seen and examined in ED 19. sent in for abnormal labs and dx w/ HHS - although no mental status changes therefore, borderline. nonetheless needs insulin gtt denied bleeding/cough/fevers/chest pain/sob, sore throat/weakness outside of baseline/confusion/fevers/chills HRS possible but IGNACIO is improving keep in ICU on insulin gtt - transition to lantus when appropriate Documentation for date of: 09/07/24 HPI History of Present Illness Chief complaint: Referred by Doctor for Abnormal labs History of present illness: HPI: Patient is 63-year-old female with past medical history significant for cryptogenic cirrhosis, severe aortic stenosis and insulin-dependent diabetes mellitus [8.9%] presenting today after being referred by her doctor for abnormal labs. Upon questioning patient denied any symptoms including chest pain/pressure, vomiting, diarrhea, poor oral intake, dysuria, sick contacts and recent travel. She was recently hospitalized last month for anasarca and also had an ICU admission at the time requiring vasopressors for hepatorenal and hepatopulmonary syndrome. ED course: BP 153/70, pulse 89, RR 18, temp 98.3 F, SpO2 99% on room air. Labs showed Hb 7.8, WBC 2, PLT 45, BUN 35, CR 1.9, glucose 802, PT 17.4, INR 1.6, T. bili 3.1. Osmolality 330 Chest x-ray showed bilateral pulmonary edema In the ED patient received normal saline 2L IVF bolus insulin 10 units IV x 1. Patient will be admitted to the ICU for treatment and management of hyperosmolar hyperglycemia requiring insulin infusion Review of Systems Review of Systems Narrative Review of Systems: GENERAL: Denies fever/chills or diaphoresis. HEENT: Denies headaches or visual changes. Denies discharge. Neuro: Denies unusual weakness or difficulty speaking. CARDIO: Denies chest pain or palpitations. PULM: Denies SOB, coughing or wheezing. GI: Denies abdominal pain, N/V/C/D. Reports having BMs. URO: Denies burning/itching/pain/urinary changes. MSK/EXT/SKIN: Denies joint/skeletal/muscle pain, issues/changes in upper or lower extremities, itchiness, or superficial pain. PSYCH: Cooperative, pleasant mood & affect. The rest of the review of systems is otherwise negative. Past Medical History Past Medical History Comments PMH COMMENT: Past medical history: Cryptogenic cirrhosis Severe aortic stenosis Insulin-dependent diabetes mellitus type 2 Medication list: Pending reconciliation Past surgical history: C-sections Allergies: NKFDA Social history: lives at home with her . Denies any alcohol, smoking and drug use. At baseline ambulates independently Family History: No significant history Exam Vital Signs Temp Pulse Resp BP Pulse Ox O2 Del Method 97.5 F 68 20 137/67 H 98 Room Air 09/07/24 12:25 09/07/24 12:25 09/07/24 12:25 09/07/24 12:25 09/07/24 12:09/07/24 12:25 Narrative Exam Constitutional Alert, oriented x 3 and comfortable. Elderly female, jaundice, scleral icterus. HEENT Vision grossly intact. Patent nares. Trachea midline Respiratory Chest normal on inspection and clear auscultation bilaterally, decreased air entry at bases Cardiovascular S1 and S2 audible, RRR. 3/6 ejection systolic murmur at right sternal border with radiation to bilateral carotids. JVD not assessed Abdominal Distended, abdominal striae, obese. BS+ Genitourinary No bladder tenderness, no flank pain. Normal to palpation Musculoskeletal Extremities tone within normal limits. 2+ lower extremity edema up to knees bilaterally Neurological CN II - XII grossly intact. Extremity motor and sensation grossly intact. Skin Warm, dry and intact. No apparent lesions. Psychiatric Patient has good affect, is cooperative Results: Labs 09/07/24 10:03 09/07/24 16:40 Labs: Short CBC 09/07/24 Range/Units 10:03 WBC 2.0 L D (3.6-11.0) Thou/mm3 Hgb 7.8 L (12.0-16.0) g/dL Hct 22.8 L (36.0-46.0) % Plt Count 45 L D (140-440) Thou/mm3 BMP 09/07/24 10:03 Sodium 126 L Potassium 5.4 H D Chloride 96 L Carbon Dioxide 21.6 BUN 36 H Creatinine 1.9 H Glucose 802 H* D Calcium 9.2 Liver Function 09/07/24 Range/Units 10:03 Total Bilirubin 3.1 H (0.3-1.2) mg/dL AST 34 (0-34) U/L ALT 20 (10-49) U/L Alkaline Phosphatase 278 H D (46-116) U/L Albumin 3.2 L (3.4-4.8) gm/dL Urine 09/07/24 Range/Units 11:15 Urine Color Lt-Yellow (Lt Yel-Yel) Urine Clarity Clear (Clear/Hazy) Urine pH 6.0 (5.0-7.0) Ur Specific [place] 1.020 (1.001-1.035) Urine Protein Negative (Neg - Trace) Urine Glucose (UA) 4+ A (Negative) ABG Interpretation ABG results: 09/07/24 11:45 ABG pH 7.38 ABG pCO2 35 ABG pO2 86 ABG HCO3 20 ABG O2 Saturation 98 ABG Base Excess -5 L Quality Measures Quality Measures none Advance care planning discussed with:: patient Medications Home Medications and Allergies Home Medications ?Medication ?Instructions ?Recorded ?Confirmed ?Type metformin 500 mg tablet 1,000 mg PO BIDAC #0 tabs 08/14/24 History (Glucophage) simvastatin 10 mg tablet (Zocor) 10 mg PO HS #0 tabs 0 12/07/15 08/14/24 History hydrocodone 7.5 mg-ibuprofen 200 1 tab PO TID PRN Pain 04/27/20 08/14/24 History mg tablet insulin glargine 100 unit/mL (3 10 unit subcut QDAY 06/24/22 History mL) subcutaneous pen (Lantus Solostar U-100 Insulin) losartan 50 mg tablet 50 mg PO QDAY 06/24/2208/14 History Held on 08/19/24. Instructions: Resume on 08/31/24. Restart if your PCP says you need additional agent for blood pressure control nateglinide 120 mg tablet 120 mg PO TID 06/24/2208/14 History temazepam 30 mg capsule 30 mg PO QHSPRN PRN Anxiety 06/24/22 08/14/24 History folic acid 1 mg tablet 1 mg PO QDAY 08/14/24 History furosemide 40 mg tablet 40 mg PO .AM 08/14/24 History insulin glargine-yfgn 100 unit/mL 10 unit subcut DAILY 08/14/24 08/15/24 History (3 mL) subcutaneous pen (Semglee (insulin glargine-yfgn) Pen) Allergies Allergy/AdvReac Type Severity Reaction Status Date / Time No Known Allergies Allergy Verified 09/07/24 08:41 Visit Medications Sodium Chloride (Ns) 1,000 mls @ 100 mls/hr IV .Q10H ONE Stop: 09/07/24 19:23 Last Infusion: 09/07/24 11:37 Dose: 0 mls/hr Insulin Human Regular (Myxredlin) 100 unit in 100 mls @ 6.668 mls/hr IV .Q15H PRN; Protocol PRN Reason: PER PROTOCOL Stop: 10/07/24 11:21 Last Titration: 09/07/24 12:42 Dose: 0.1 unit/kg/hr, 6.668 mls/hr Discontinued Medications Sodium Chloride (Ns) 1,000 mls @ 999 mls/hr IV .Q1H1M ONE Stop: 09/07/24 12:20 Last Infusion: 09/07/24 12:43 Dose: Infused Insulin Human Regular (Insulin Hum Regular 1 Unit/0.01 Ml (Per Unit)) 10 unit IV X1 ONE Stop: 09/07/24 11:21 Last Admin: 09/07/24 11:41 Dose: 10 unit Assessment & Plan Plan Patient is 63-year-old female with past medical history significant for cryptogenic cirrhosis, severe aortic stenosis and insulin-dependent diabetes mellitus [8.9%] presenting today after being referred by her doctor for abnormal labs. Patient will be admitted to the ICU for treatment and management of hyperosmolar hyperglycemia requiring insulin infusion. ENDO T2 IDDM Hyperosmolar hyperglycemic state DDx: Secondary to medication noncompliance Dx: Serum osmolality 330, glucose 802. Patient alert and oriented, not confused. Rx: Started on insulin infusion along with IV fluids LR/D5W as necessary. Also will replete electrolytes as necessary RRX: Once blood glucose consistently below 200, will transition to subcutaneous insulin. NEURO No acute problems CVS Severe Aortic Stenosis Dx: Severe aortic stenosis seen on TTE. 3/6 ejection systolic murmur at right sternal border with radiation to bilateral carotids Rx: Continue outpatient follow-up for TAVR versus open repair Heart failure with preserved ejection fraction Dx: EF 65% on TTE. CXR showed prominent vascular congestion and bilateral pulmonary edema. BNP elevated at 304 Rx: After treatment for hyperosmolar hyperglycemia, will start on fluid restriction RRx: If edema significantly worsens or patient experience shortness of breath will give Lasix x 1 PULM No acute problems GI/Hep Decompensated Cryptogenic cirrhosis with ascites, thrombocytopenia and coagulopathy Possible hepatorenal syndrome Dx: Baseline CR 1.1?1.2. On admission CR 1.9 Rx: Nephrology and GI consulted. Appreciate recommendation RENAL IGNACIO likely pre-renal DDx: Possible Hepato-renal Rx: Pending Nephrology recommendations HEME/ONC Macrocytic Anemia DDx: Vitamin deficiency, MICHELLE, anemia of chronic disease Dx: Hb 7.8 Rx: Monitor for signs of ble ID No active problems MSK/DERM No active problems ICU Health maintenance: Dispo: Admit to ICU for Insulin infusion Diet: NPO DVT ppx: SCDs GI ppx: None IV lines: 2 pIV Central line: No Arterial line: No Pugh: NO Code status: FULL CODE Plan of care discussed with Attending Dr. Dmitriy Barahona MD PGY 1 Disclaimer: This note was dictated by speech recognition. Minor errors in market reporter may be present due to voice recognition software.
--- NOTE | 2024-09-07 13:45 | PD.RESCONSUL ---
HPI Data of Consult Consult date: 09/07/24 Requesting Physician: Dougie Izaguirre MD Admitting Provider: Dougie Izaguirre MD Attending Provider: Dougie Izaguirre MD Primary Care Provider: Kaylie Montes MD Consult Narrative Reason for consult: IGNACIO, hyperglycemic hyperosmolar state History of present illness: The patient is a 63-year-old female with a past medical history of cryptogenic cirrhosis, diabetes mellitus, anemia, who presented to the ER with shortness of breath and generalized swelling. The patient was directed to go to the ER after being evaluated by diet technician registered Dr. Pérez in his office, noted to have worsening renal function and volume overload. Per patient's , patient has had cryptogenic cirrhosis for past many years, has not been evaluated for liver transplant yet, was being managed for cirrhosis, started on diuretics, Lasix and spironolactone, which led to worsening renal function, was directed to discontinue diuretics which improved renal function but led to generalized edema. Of note patient had recently been admitted to the hospital for SBP following paracentesis almost 2 weeks ago. Currently patient denies any fever or abdominal pain, or chest pain. Comfortable at rest, no shortness of breath on laying down, but reported worsening dyspnea on exertion. Denied nausea, vomiting or diarrhea or GI bleed. In the ER, patient was found to have labs consistent with anemia, leukopenia, thrombocytopenia, as well as hyponatremia, mild hyperkalemia, IGNACIO, and hyperglycemia. Osmolarity 300, blood glucose 802, patient was started on insulin drip for hyperglycemic hyperosmolar syndrome the patient was admitted to ICU for insulin drip and further management. Nephrology was consulted for acute kidney injury/CKD. EKG showed right bundle branch block. cc:: cc: Dougie Izaguirre MD Past Medical History Past Medical History NEUROLOGIC: Negative Neurological Disorders or Seizures CARDIAC: Positive Hypercholesterolemia and Hypertension; Negative Cardiac Disorders or Congestive Heart Failure RESPIRATORY: Negative Chronic Obstructive Pulmonary Disease (COPD) or Asthma GASTROINTESTINAL: Positive Gastrointestinal Disorders, Cirrhosis and Hemorrhoids GENITOURINARY: Negative Genitourinary Disorders or Renal Disease REPRODUCTIVE: Positive Previous Pregnancies MUSCULOSKELETAL: Positive Musculoskeletal Disorders, Arthritis and Carpal Tunnel Syndrome ENDOCRINE: Positive Endocrine Disorders and Diabetes Mellitus Type 2; Negative Diabetes Mellitus Type 1 HEMATOLOGIC: Positive Anemia; Negative Blood Disorders or Sickle Cell Disease OTHER HISTORY: Positive Hospitalization; Negative Falls, Blood Transfusions, Anesthesia Reactions or Cancer Family History FAMILY HISTORY: Negative Family Cardiac Disorders Surgical History SURGICAL: Positive Ear Surgery and Section; Negative Cardiac Surgery OTHER SURGICAL HX: As in the history of present illness Social History SMOKING STATUS: Former smoker SUBSTANCE USE: does not use Past Medical History Comments PMH COMMENT: Past medical history: Cryptogenic cirrhosis Severe aortic stenosis Insulin-dependent diabetes mellitus type 2 Medication list: Pending reconciliation Past surgical history: C-sections Allergies: NKFDA Social history: lives at home with her . Denies any alcohol, smoking and drug use. At baseline ambulates independently Family History: No significant history Exam Vital Signs Temp Pulse Resp BP Pulse Ox O2 Del Method 97.5 F 68 20 137/67 H 98 Room Air 09/07/24 12:25 09/07/24 12:25 09/07/24 12:25 09/07/24 12:25 09/07/24 12:09/07/24 12:25 Narrative Exam Constitutional Alert, oriented x 3 and comfortable. Elderly female, jaundice, scleral icterus. HEENT Vision grossly intact. Patent nares. Trachea midline Respiratory Chest normal on inspection and clear auscultation bilaterally, decreased air entry at bases Cardiovascular S1 and S2 audible, RRR. 3/6 ejection systolic murmur at right sternal border with radiation to bilateral carotids. JVD not assessed Abdominal Distended, abdominal striae, obese. BS+ Genitourinary No bladder tenderness, no flank pain. Normal to palpation Musculoskeletal Extremities tone within normal limits. 2+ lower extremity edema up to knees bilaterally Neurological CN II - XII grossly intact. Extremity motor and sensation grossly intact. Skin Warm, dry and intact. No apparent lesions. Psychiatric Patient has good affect, is cooperative Results Labs 09/07/24 10:03 09/07/24 16:40 Labs: Short CBC 09/07/24 Range/Units 10:03 WBC 2.0 L D (3.6-11.0) Thou/mm3 Hgb 7.8 L (12.0-16.0) g/dL Hct 22.8 L (36.0-46.0) % Plt Count 45 L D (140-440) Thou/mm3 BMP 09/07/24 10:03 Sodium 126 L Potassium 5.4 H D Chloride 96 L Carbon Dioxide 21.6 BUN 36 H Creatinine 1.9 H Glucose 802 H* D Calcium 9.2 Liver Function 09/07/24 Range/Units 10:03 Total Bilirubin 3.1 H (0.3-1.2) mg/dL AST 34 (0-34) U/L ALT 20 (10-49) U/L Alkaline Phosphatase 278 H D (46-116) U/L Albumin 3.2 L (3.4-4.8) gm/dL Urine 09/07/24 Range/Units 11:15 Urine Color Lt-Yellow (Lt Yel-Yel) Urine Clarity Clear (Clear/Hazy) Urine pH 6.0 (5.0-7.0) Ur Specific [place] 1.020 (1.001-1.035) Urine Protein Negative (Neg - Trace) Urine Glucose (UA) 4+ A (Negative) ABG Interpretation ABG results: 09/07/24 11:45 ABG pH 7.38 ABG pCO2 35 ABG pO2 86 ABG HCO3 20 ABG O2 Saturation 98 ABG Base Excess -5 L Quality Measures Quality Measures none Advance care planning discussed with:: patient Medications Home Medications and Allergies Home Medications ?Medication ?Instructions ?Recorded ?Confirmed ?Type metformin 500 mg tablet 1,000 mg PO BIDAC #0 tabs 12/07/15 08/14/24 History (Glucophage) simvastatin 10 mg tablet (Zocor) 10 mg PO HS #0 tabs 12/07/15 08/14/24 History hydrocodone 7.5 mg-ibuprofen 200 1 tab PO TID PRN Pain 04/27/20 08/14/24 History mg tablet insulin glargine 100 unit/mL (3 10 unit subcut QDAY 06/24/22 06/24/22 History mL) subcutaneous pen (Lantus Solostar U-100 Insulin) losartan 50 mg tablet 50 mg PO QDAY 06/24/22 08/14/24 History Held on 08/19/24. Instructions: Resume on 08/31/24. Restart if your PCP says you need additional agent for blood pressure control nateglinide 120 mg tablet 120 mg PO TID 06/24/22 08/14/24 History temazepam 30 mg capsule 30 mg PO QHSPRN PRN Anxiety 06/24/22 08/14/24 History folic acid 1 mg tablet 1 mg PO QDAY 08/14/24 08/14/24 History furosemide 40 mg tablet 40 mg PO .AM 08/14/24 08/15/24 History insulin glargine-yfgn 100 unit/mL 10 unit subcut DAILY 08/14/24 08/15/24 History (3 mL) subcutaneous pen (Semglee (insulin glargine-yfgn) Pen) Allergies Allergy/AdvReac Type Severity Reaction Status Date / Time No Known Allergies Allergy Verified 09/07/24 08:41 Visit Medications Dextrose (Dextrose 50%-Water Inj 50 Ml Syringe) 25 ml IV PRNMRX1 PRN PRN Reason: Blood Sugar - Low Sodium Chloride (Ns) 1,000 mls @ 100 mls/hr IV .Q10H ONE Stop: 09/07/24 19:23 Last Infusion: 09/07/24 11:37 Dose: 0 mls/hr Insulin Human Regular (Myxredlin) 100 unit in 100 mls @ 6.668 mls/hr IV .Q15H PRN; Protocol PRN Reason: PER PROTOCOL Stop: 10/07/24 11:21 Last Titration: 09/07/24 12:42 Dose: 0.1 unit/kg/hr, 6.668 mls/hr Sodium Chloride (Ns) 1,000 mls @ 500 mls/hr IV .Q2H WAYNE Stop: 10/07/24 13:26 Potassium Chloride (Kcl Ivpb) 10 meq in 100 mls @ 100 mls/hr IV .Q1H PRN PRN Reason: IF POTASSIUM LESS THAN 3.3 Stop: 10/07/24 13:26 Magnesium Sulfate (Magnesium Sulfate Ivpb) 2 gm in 50 mls @ 25 mls/hr IV .Q2H PRN PRN Reason: PER DKA PROTOCOL Stop: 10/07/24 13:26 Dextrose/Lactated Ringer's (D5-Lr) 1,000 mls @ 250 mls/hr IV .Q4H PRN PRN Reason: PER PROTOCOL Stop: 10/07/24 13:26 Lactated Ringer's (Lactated Ringers) 1,000 mls @ 250 mls/hr IV .Q4H PRN PRN Reason: PER PROTOCOL Stop: 09/08/24 13:26 Potassium Chloride 20 meq/ (Lactated Ringer's) 1,010 mls @ 250 mls/hr IV .Q4H3M PRN PRN Reason: K LEVEL 3.3 TO 5.3mM/L Stop: 10/07/24 13:26 Potassium Chloride 40 meq/ (Lactated Ringer's) 1,020 mls @ 250 mls/hr IV .Q4H5M PRN PRN Reason: K LEVEL < 3.3 mM/L Stop: 10/07/24 13:26 Potassium Chloride 40 meq/ (Dextrose/Lactated Ringer's) 1,020 mls @ 250 mls/hr IV .Q4H5M PRN PRN Reason: K LEVEL < 3.3mM/L Stop: 10/07/24 13:26 Potassium Cl/Dextrose/Lact Ringer's (Kcl 20 Meq/L In D5-Lr) 20 meq in 1,000 mls @ 250 mls/hr IV .Q4H PRN PRN Reason: K LEVEL 3.3 TO 5.3 mM/L Stop: 10/07/24 13:26 Potassium Chloride (Kcl Ivpb) 10 meq in 100 mls @ 50 mls/hr IV PRN PRN PRN Reason: K LEVEL 3.3 to 5.3 & BG > 200 Stop: 10/07/24 13:26 Potassium Phosphate (Pot Phos 15 Mmol In Ns 250 Ml) 15 mmol in 250 mls @ 62.5 mls/hr IV PRN PRN PRN Reason: Phosphate <= 1mg/dL Stop: 10/07/24 13:26 Sodium Phosphate 15 mmol/ (Sodium Chloride) 255 mls @ 62.5 mls/hr IV .Q4H5M PRN PRN Reason: Phosphate <= 1mg/dL and K> than 5.3 Stop: 10/07/24 13:26 Sodium Bicarbonate (Sodium Bicarb Inj 8.4% Syr 50 Ml Syringe) 50 ml IV Q4HR PRN PRN Reason: For ph <= to 7.0 Stop: 10/07/24 13:26 Discontinued Medications Sodium Chloride (Ns) 1,000 mls @ 999 mls/hr IV .Q1H1M ONE Stop: 09/07/24 12:20 Last Infusion: 09/07/24 12:43 Dose: Infused Insulin Human Regular (Insulin Hum Regular 1 Unit/0.01 Ml (Per Unit)) 10 unit IV X1 ONE Stop: 09/07/24 11:21 Last Admin: 09/07/24 11:41 Dose: 10 unit Assessment & Plan Plan The patient is a 63-year-old female with a past medical history of cryptogenic cirrhosis, diabetes mellitus, anemia, who presented to the ER with shortness of breath and generalized swelling. The patient was directed to go to the ER after being evaluated by diet technician registered Dr. Pérez in his office, noted to have worsening renal function and volume overload. Per patient's , patient has had cryptogenic cirrhosis for past many years, has not been evaluated for liver transplant yet, was being managed for cirrhosis, started on diuretics, Lasix and spironolactone, which led to worsening renal function, was directed to discontinue diuretics which improved renal function but led to generalized edema. Of note patient had recently been admitted to the hospital for SBP following paracentesis almost 2 weeks ago. Currently patient denies any fever or abdominal pain, or chest pain. Comfortable at rest, no shortness of breath on laying down, but reported worsening dyspnea on exertion. Denied nausea, vomiting or diarrhea or GI bleed. In the ER, patient was found to have labs consistent with anemia, leukopenia, thrombocytopenia, as well as hyponatremia, mild hyperkalemia, IGNACIO, and hyperglycemia. Osmolarity 300, blood glucose 802, patient was started on insulin drip for hyperglycemic hyperosmolar syndrome the patient was admitted to ICU for insulin drip and further management. Nephrology was consulted for acute kidney injury/CKD. EKG showed right bundle branch block. #Acute on chronic kidney injury #Possible hepatorenal syndrome type II Patient seems to have underlying CKD, stage IIb, now presented with IGNACIO on CKD, following Lasix and spironolactone use, creatinine worsened to 2.8, in outpatient setting, now improved to creatinine 1.9 following discontinuation of diuretics, but presented with worsening anasarca. ?IV albumin 25 g every 6 hours, will give albumin challenge 100 g to assess for improvement in renal function. ? Strict urine output monitoring ? Ultrasound bilateral kidneys ? Avoid nephrotoxic drugs, renal dosing precipitated #Hyperglycemia, possible HHS Fingerstick glucose as high as 1000, glucose on blood draw 802, patient was prescribed insulin 4 weeks ago, per they have been taking insulin every day, would likely benefit from diabetic education and insulin administration education. ? Insulin GTT, management per ICU #Pancytopenia #History of cirrhosis, decompensated #Hyponatremia #Hyperkalemia ? Management per primary team Plan of care discussed with attending Dr. Zandra Mcleod PGY2 Attending Provider Attestation/Addendum Patient seen and examined with resident physician Dr. Mcleod. Note reviewed, agree with findings and recommendations. Patient with significant elevation in blood sugars-802. Currently on insulin drip. Will be transferred to ICU for close monitoring. Continue with IV fluids. No need for dialysis. Significant anasarca noted. Patient has a liver cirrhosis and is under the care of Dr. Pérez. Thank you Dr. Izaguirre for allowing me to participate in the care of Ms. Charlton
[2024-09-07] MEDS: RINGERS LACTATED 1000 ML 1,000 ML 250 ML IV (14:14)
[2024-09-07] MEDS: Magnesium Sulfate 2 GM Ivpb 2 GM/50 ML BAG IV ×2 (14:15→18:16)
[2024-09-07 17:15] LABS: Anion Gap 8 (7-16); BUN/Creatinine Ratio 19 Ratio (12-20); Blood Urea Nitrogen 35 mg/dL (9-23); Calcium 9.1 mg/dL (8.3-10.6); Calcium (Corrected) 9.9 mg/dL (8.5-10.1); Carbon Dioxide 21.5 mMol/L (20.0-31.0); Chloride 102 mMol/L (98-107); Creatinine (Component) 1.8 mg/dL (0.6-1.3); Estimated Creatinine Clearance 27.2 mL/min (>60); Magnesium 1.5 mg/dL (1.6-2.6); Osmolality,Calculated 291 (275-295); Phosphorous 3.6 mg/dL (2.4-5.1); Potassium 4.8 mMol/L (3.4-5.1); Sodium 131 mMol/L (136-145); eGFR 31 See Note
[2024-09-07 17:17] LABS: Glucose 473 mg/dL (74-106)
[2024-09-07] MEDS: ACETAMINOPHEN 325 MG TABLET 650 MG PO (18:05)
[2024-09-07] MEDS: ALBUMIN HUMAN 25% IVPB 12.5 GM/50 ML BTL IV (18:06)
[2024-09-07] MEDS: POT CHL ADDITIVE 20 MEQ in RINGERS LACTATED 1000 ML 1,000 ML 250 MEQ IV (18:32)
--- NOTE | 2024-09-07 19:06 | PD.IMCONS ---
HPI Data of Consult Requesting Physician: Dougie Izaguirre MD Primary Care Provider: Kaylie Montes MD Consult Narrative Reason for consult: Decompensated liver disease hepatorenal syndrome History of present illness: 63 years old female sent to the emergency room after my evaluation She has cryptogenic cirrhosis with pedal edema ascites and advanced portal hypertension She was taking spironolactone 100 mg a day and Lasix 40 mg once a day Her creatinine jumped up to 2.8 with a BUN of 37 I stopped the diuretics and saw the patient back in a week Creatinine did come down to 2.2 however BUN went up to 44 and she developed anasarca My thinking was the patient is going into hepatorenal and probably the effect of diuretics usage she could no longer be treated as an outpatient She also appeared to be short of breath worsening ascites has underlying aortic stenosis Combined all this I sent her to the emergency room and spoke with the ER physician and got the patient admitted Surprisingly her blood sugar was 802 on admission with a BUN/creatinine of 36 and 1.9 and a pro time INR 1.6 hemoglobin hematocrit of 7.8 and 22.8 and a platelet count of 45,000 LFTs showed total bilirubin 3.1 AST ALT 34 and 20 and alk phos of 278 cc:: cc: Dougie Izaguirre MD Review of Systems Review of Systems Systems Reviewed: All systems reviewed, normal except as documented Past Medical History Surgical History OTHER SURGICAL HX: As in the history of present illness Meds Home Medications and Allergies Home Medications ?Medication ?Instructions ?Recorded ?Confirmed ?Type metformin 500 mg tablet 1,000 mg PO BIDAC #0 tabs 12/07/15 08/14/24 History (Glucophage) simvastatin 10 mg tablet (Zocor) 10 mg PO HS #0 tabs 12/07/15 08/14/24 History hydrocodone 7.5 mg-ibuprofen 200 1 tab PO TID PRN Pain 04/27/20 08/14/24 History mg tablet insulin glargine 100 unit/mL (3 10 unit subcut QDAY 06/24/22 06/24/22 History mL) subcutaneous pen (Lantus Solostar U-100 Insulin) losartan 50 mg tablet 50 mg PO QDAY 06/24/22 08/14/24 History Held on 08/19/24. Instructions: Resume on 08/31/24. Restart if your PCP says you need additional agent for blood pressure control nateglinide 120 mg tablet 120 mg PO TID 06/24/22 08/14/24 History temazepam 30 mg capsule 30 mg PO QHSPRN PRN Anxiety 06/24/22 08/14/24 History folic acid 1 mg tablet 1 mg PO QDAY 08/14/24 08/14/24 History furosemide 40 mg tablet 40 mg PO .AM 08/14/24 08/15/24 History insulin glargine-yfgn 100 unit/mL 10 unit subcut DAILY 08/14/24 08/15/24 History (3 mL) subcutaneous pen (Semglee (insulin glargine-yfgn) Pen) Allergies Allergy/AdvReac Type Severity Reaction Status Date / Time No Known Allergies Allergy Verified 09/07/24 08:41 Exam Vital Signs Temp Pulse Resp BP Pulse Ox O2 Del Method 98.0 F 63 18 134/56 H 98 Room Air 09/07/24 16:00 09/07/24 18:58 09/07/24 18:58 09/07/24 18:00 09/07/24 18:00 09/07/24 16:00 Constitutional Comments: Chronically ill-appearing Routine Respiratory Exam Comments: Positive ascites Routine Extremities Exam Comments: Anasarca with 4+ pedal edema Results Labs 09/07/24 10:03 09/07/24 16:40 Labs: Short CBC 09/07/24 Range/Units 10:03 WBC 2.0 L D (3.6-11.0) Thou/mm3 Hgb 7.8 L (12.0-16.0) g/dL Hct 22.8 L (36.0-46.0) % Plt Count 45 L D (140-440) Thou/mm3 BMP 09/07/24 09/07/24 10:03 16:40 Sodium 126 L 131 L Potassium 5.4 H D 4.8 D Chloride 96 L 102 Carbon Dioxide 21.6 21.5 BUN 36 H 35 H Creatinine 1.9 H 1.8 H Glucose 802 H* D 473 H* D Calcium 9.2 9.1 Liver Function 09/07/24 09/07/24 Range/Units 10:03 16:40 Total Bilirubin 3.1 H (0.3-1.2) mg/dL AST 34 (0-34) U/L ALT 20 (10-49) U/L Alkaline Phosphatase 278 H D (46-116) U/L Albumin 3.2 L 3.0 L (3.4-4.8) gm/dL Urine 09/07/24 Range/Units 11:15 Urine Color Lt-Yellow (Lt Yel-Yel) Urine Clarity Clear (Clear/Hazy) Urine pH 6.0 (5.0-7.0) Ur Specific [place] 1.020 (1.001-1.035) Urine Protein Negative (Neg - Trace) Urine Glucose (UA) 4+ A (Negative) ABG Interpretation ABG results: 09/07/24 11:45 ABG pH 7.38 ABG pCO2 35 ABG pO2 86 ABG HCO3 20 ABG O2 Saturation 98 ABG Base Excess -5 L Assessment and Plan Additional Assessment & Plan Additional Plan: # End-stage liver disease cryptogenic cirrhosis with advanced portal hypertension anasarca and failure of diuretic therapy with worsening pedal edema and worsening renal function # Hepatorenal syndrome most likely # Hyperosmolar nonketotic state with poor control of diabetes # Hypotension Plan Supportive care Recommend renal consultation patient already sees Dr. De Paz Will consider doing an endoscopy once patient improves prior to discharge to prophylactically band ligate the esophageal varices Would also recommend a cardiology consultation to fully assess the status of the aortic stenosis At the present time with the critical aortic stenosis patient is not a candidate for liver transplant evaluation Thank you once again for the opportunity to participate in care of this patient
--- NOTE | 2024-09-07 20:24 | XR_ITS ---
Examination: Retroperitoneal ultrasound, complete Technique: Multiple high resolution grayscale images of the retroperitoneum obtained, including kidneys and bladder. Exam date and time:September 07, 2024 2107 hours INDICATIONS: Headaches acute renal insufficiency and laboratory examination 3 months ago, also diagnosis cirrhosis, hepatorenal syndrome FINDINGS: Right kidney 9.8 cm renal cortex 0.9 cm Left kidney 10.1 cm renal cortex 1.0 cm Moderate renal parenchymal scar formation Bladder contracted around a Pugh catheter IMPRESSION: Small kidneys with bilateral renal cortical thinning Moderate bilateral renal parenchymal scar formation
[2024-09-07 21:07] LABS: Albumin, Serum 3.1 gm/dL (3.4-4.8); Anion Gap 9 (7-16); BUN/Creatinine Ratio 21 Ratio (12-20); Blood Urea Nitrogen 37 mg/dL (9-23); Calcium 9.6 mg/dL (8.3-10.6); Calcium (Corrected) 10.3 mg/dL (8.5-10.1); Carbon Dioxide 21.1 mMol/L (20.0-31.0); Chloride 101 mMol/L (98-107); Creatinine (Component) 1.8 mg/dL (0.6-1.3); Estimated Creatinine Clearance 27.2 mL/min (>60); Glucose 287 mg/dL (74-106); Magnesium 1.9 mg/dL (1.6-2.6); Osmolality,Calculated 281 (275-295); Phosphorous 3.6 mg/dL (2.4-5.1); Potassium 4.1 mMol/L (3.4-5.1); Sodium 131 mMol/L (136-145); eGFR 31 See Note
[2024-09-08] VITALS (17 sets, daily range): BP systolic 128–159; BP diastolic 58–106; PULSE 54–73; RESP 0–99; TEMP 36.3–37.1; O2SAT 96–100; BMI 27.8
[2024-09-08] MEDS: ALBUMIN HUMAN 25% IVPB 12.5 GM/50 ML BTL IV ×4 (00:04→17:51)
[2024-09-08] MEDS: POT CHL ADDITIVE 20 MEQ in RINGERS LACTATED 1000 ML 1,000 ML 250 MEQ IV (00:50)
[2024-09-08 01:03] LABS: Albumin, Serum 3.3 gm/dL (3.4-4.8); Anion Gap 7 (7-16); BUN/Creatinine Ratio 22 Ratio (12-20); Blood Urea Nitrogen 37 mg/dL (9-23); Calcium 9.3 mg/dL (8.3-10.6); Calcium (Corrected) 9.9 mg/dL (8.5-10.1); Carbon Dioxide 22.4 mMol/L (20.0-31.0); Chloride 104 mMol/L (98-107); Creatinine (Component) 1.7 mg/dL (0.6-1.3); Estimated Creatinine Clearance 28.8 mL/min (>60); Glucose 92 mg/dL (74-106); Magnesium 1.8 mg/dL (1.6-2.6); Osmolality,Calculated 275 (275-295); Phosphorous 3.4 mg/dL (2.4-5.1); Potassium 4.5 mMol/L (3.4-5.1); Sodium 133 mMol/L (136-145); eGFR 33 See Note
[2024-09-08] MEDS: INSULIN GLARGINE (Lantus) 5 UNIT/0.05 ML (PER 5 UNITS) 30 UNIT SC (01:55)
[2024-09-08] MEDS: Magnesium Sulfate 2 GM Ivpb 2 GM/50 ML BAG IV (01:59)
[2024-09-08 06:50] LABS: Basophils % (Auto) 0 % (0-2.5); Eosinophils # (Auto) 0.3 Thou/mm3 (0.0-0.5); Eosinophils % (Auto) 5 % (0-10); Hematocrit 23.9 % (36.0-46.0); Immature Granulocytes % (Auto) 0 % (0-0); Immature Granulocytes Auto 0.02 Thou/mm3 (0.00-0.00); Lymphocytes # (Auto) 1.4 Thou/mm3 (1.0-4.8); Lymphocytes % (Auto) 28 % (10-50); Mean Corpuscular HGB Conc 33.9 g/dl (31.0-37.0); Mean Corpuscular Hemoglobin 34.3 pg (25.0-35.0); Mean Corpuscular Volume 101 fL (80-100); Monocytes # (Auto) 0.4 Thou/mm3 (0.0-0.8); Monocytes % (Auto) 8 % (0-12); Neutrophils # (Auto) 2.9 Thou/mm3 (1.8-7.7); Neutrophils % (Auto) 58 % (37-80); Nucleated Red Blood Cell % 0 /100 WBC (0); Red Blood Count 2.36 Miln/mm3 (4.00-5.20); White Blood Count 4.9 Thou/mm3 (3.6-11.0)
[2024-09-08 07:01] LABS: Hemoglobin 8.1 g/dL (12.0-16.0); Platelet Count 67 Thou/mm3 (140-440)
--- NOTE | 2024-09-08 07:10 | ESPR_ITS ---
<Statement entered by Dougie Izaguirre MD - 09/08/24 19:58> TOTAL TIME: 45MINUTES ON DIRECT MEDICAL CARE, MANAGEMENT - COORDINATION AND COUNSELING > 50% OF TOTAL TIME I saw and evaluated the patient. I reviewed the resident?s note and agree with findings and plan as documented in the resident?s note. off insulin gtt - i adjusted the o/n resident's lantus calculation from 30u bid to qhs dosing only futher adjustments can be made as appropriate no bleeding noted po diet ordered hemodynamics stable - transfer to med/surg Documentation for date of: 09/08/24 Subjective Subjective Interval history: Patient is 63-year-old female with past medical history significant for cryptogenic cirrhosis, severe aortic stenosis and insulin-dependent diabetes mellitus [8.9%] presenting today after being referred by her doctor for abnormal labs. Upon questioning patient denied any symptoms including chest pain/pressure, vomiting, diarrhea, poor oral intake, dysuria, sick contacts and recent travel. She was recently hospitalized last month for anasarca and also had an ICU admission at the time requiring vasopressors for hepatorenal and hepatopulmonary syndrome. ED course: BP 153/70, pulse 89, RR 18, temp 98.3 F, SpO2 99% on room air. Labs showed Hb 7.8, WBC 2, PLT 45, BUN 35, CR 1.9, glucose 802, PT 17.4, INR 1.6, T. bili 3.1. Osmolality 330 Chest x-ray showed bilateral pulmonary edema In the ED patient received normal saline 2L IVF bolus insulin 10 units IV x 1. Patient will be admitted to the ICU for treatment and management of hyperosmolar hyperglycemia requiring insulin infusion 09/08/2024: Overnight patient's blood glucose dropped below 200 and she was transitioned off of the insulin infusion. This morning she feels well and denies any headaches, dizziness, abdominal pain. Hb 8.1, MCV 101, PLT 67, INR 1.6, NA 132, K5.2, BUN 39, CR 1.9, T. bili 4.1, glucose 166. Patient on glargine 35U SC at bedtime and lispro 2 units AC 3 times daily with meals. Patient currently clinically stable and fit for downgrade to the floor. Exam Vital Signs Temp Pulse Resp BP Pulse Ox O2 Del Method 97.8 F 58 L 3 L 131/65 H 97 Room Air 09/08/24 04:00 09/08/24 06:00 09/08/24 06:00 09/08/24 06:00 09/08/24 06:00 09/07/24 16:00 Narrative Exam Constitutional Alert, oriented x 3 and comfortable. Elderly female, jaundice, scleral icterus. HEENT Vision grossly intact. Patent nares. Trachea midline Respiratory Chest normal on inspection and clear auscultation bilaterally, decreased air entry at bases Cardiovascular S1 and S2 audible, RRR. 3/6 ejection systolic murmur at right sternal border with radiation to bilateral carotids. JVD not assessed Abdominal Distended, abdominal striae, obese. BS+ Genitourinary No bladder tenderness, no flank pain. Normal to palpation Musculoskeletal Extremities tone within normal limits. 2+ lower extremity edema up to knees bilaterally Neurological CN II - XII grossly intact. Extremity motor and sensation grossly intact. Skin Warm, dry and intact. No apparent lesions. Psychiatric Patient has good affect, is cooperative Objective Labs 09/08/24 05:50 09/08/24 05:50 Labs: Laboratory Results - last 24 hr 09/07/24 09/07/24 09/07/24 10:03 11:15 11:45 WBC 2.0 L D RBC 2.26 L Hgb 7.8 L Hct 22.8 L MCV 101 H MCH 34.5 MCHC 34.2 RDW Std Deviation 67.0 H Plt Count 45 L D Neut % (Auto) 51 Lymph % (Auto) 34 Andrews % (Auto) 12 Eos % (Auto) 4 Baso % (Auto) 1 Neut # (Auto) 1.0 L Lymph # (Auto) 0.7 L Andrews # (Auto) 0.2 Eos # (Auto) 0.1 Baso # (Auto) 0.0 Immature Gran # (Auto) 0.01 H Absolute Nucleated RBC 0.00 Immature Gran % 1 H Nucleated RBC % 0 Smear Path Review Sent to Pathologist PT 17.4 H INR 1.6 H APTT 36.2 H Puncture Site Left Radial ABG pH 7.38 ABG pCO2 35 ABG pO2 86 ABG HCO3 20 ABG O2 Saturation 98 ABG Base Excess -5 L FiO2 21 Sodium 126 L Potassium 5.4 H D Chloride 96 L Carbon Dioxide 21.6 Anion Gap 8 BUN 36 H Creatinine 1.9 H Estim Creat Clear Calc 25.8 L eGFR 29 L BUN/Creatinine Ratio 19 Glucose 802 H* D Calculated Osmolality 300 H Lactic Acid 1.5 Calcium 9.2 Corrected Calcium 9.8 Phosphorus 4.5 Magnesium 1.4 L Total Bilirubin 3.1 H AST 34 ALT 20 Alkaline Phosphatase 278 H D Total Protein 5.8 Albumin 3.2 L Globulin 2.6 Albumin/Globulin Ratio 1.2 Beta-Hydroxybutyrate/Acetoacetate Ur Collection Type Clean Catch Urine Color Lt-Yellow Urine Clarity Clear Urine pH 6.0 Ur Specific [place] 1.020 Urine Protein Negative Urine Glucose (UA) 4+ A Urine Ketones Negative Urine Blood Negative Urine Nitrite Negative Urine Bilirubin Negative Urine Urobilinogen (Auto) Negative Ur Leukocyte Esterase Negative Urine RBC 1 Urine WBC 1 Ur Squamous Epith Cells 1 Urine Bacteria None Misc Test Result Platelets confirmed Blood Type Antibody Screen Blood Bank Wristband ID 09/07/24 09/07/24 09/07/24 11:58 16:40 20:30 WBC RBC Hgb Hct MCV MCH MCHC RDW Std Deviation Plt Count Neut % (Auto) Lymph % (Auto) Andrews % (Auto) Eos % (Auto) Baso % (Auto) Neut # (Auto) Lymph # (Auto) Andrews # (Auto) Eos # (Auto) Baso # (Auto) Immature Gran # (Auto) Absolute Nucleated RBC Immature Gran % Nucleated RBC % Smear Path Review PT INR APTT Puncture Site ABG pH ABG pCO2 ABG pO2 ABG HCO3 ABG O2 Saturation ABG Base Excess FiO2 Sodium 131 L 131 L Potassium 4.8 D 4.1 D Chloride 102 101 Carbon Dioxide 21.5 21.1 Anion Gap 8 9 BUN 35 H 37 H Creatinine 1.8 H 1.8 H Estim Creat Clear Calc 27.2 L 27.2 L eGFR 31 L 31 L BUN/Creatinine Ratio 19 21 H Glucose 473 H* D 287 H D Calculated Osmolality 291 281 Lactic Acid Calcium 9.1 9.6 Corrected Calcium 9.9 10.3 H Phosphorus 3.6 3.6 Magnesium 1.5 L 1.9 Total Bilirubin AST ALT Alkaline Phosphatase Total Protein Albumin 3.0 L 3.1 L Globulin Albumin/Globulin Ratio Beta-Hydroxybutyrate/Acetoacetate 0.1 Ur Collection Type Urine Color Urine Clarity Urine pH Ur Specific [place] Urine Protein Urine Glucose (UA) Urine Ketones Urine Blood Urine Nitrite Urine Bilirubin Urine Urobilinogen (Auto) Ur Leukocyte Esterase Urine RBC Urine WBC Ur Squamous Epith Cells Urine Bacteria Misc Test Result Blood Type O Positive Antibody Screen NEGATIVE Blood Bank Wristband ID Yes 09/08/24 09/08/24 00:30 05:50 WBC 4.9 D RBC 2.36 L Hgb 8.1 L Hct 23.9 L MCV 101 H MCH 34.3 MCHC 33.9 RDW Std Deviation 69.0 H Plt Count 67 L D Neut % (Auto) 58 Lymph % (Auto) 28 Andrews % (Auto) 8 Eos % (Auto) 5 Baso % (Auto) 0 Neut # (Auto) 2.9 Lymph # (Auto) 1.4 Andrews # (Auto) 0.4 Eos # (Auto) 0.3 Baso # (Auto) 0.0 Immature Gran # (Auto) 0.02 H Absolute Nucleated RBC 0.00 Immature Gran % 0 Nucleated RBC % 0 Smear Path Review PT INR APTT Puncture Site ABG pH ABG pCO2 ABG pO2 ABG HCO3 ABG O2 Saturation ABG Base Excess FiO2 Sodium 133 L Potassium 4.5 Chloride 104 Carbon Dioxide 22.4 Anion Gap 7 BUN 37 H Creatinine 1.7 H Estim Creat Clear Calc 28.8 L eGFR 33 L BUN/Creatinine Ratio 22 H Glucose 92 D Calculated Osmolality 275 Lactic Acid Calcium 9.3 Corrected Calcium 9.9 Phosphorus 3.4 Magnesium 1.8 Total Bilirubin AST ALT Alkaline Phosphatase Total Protein Albumin 3.3 L Globulin Albumin/Globulin Ratio Beta-Hydroxybutyrate/Acetoacetate Ur Collection Type Urine Color Urine Clarity Urine pH Ur Specific [place] Urine Protein Urine Glucose (UA) Urine Ketones Urine Blood Urine Nitrite Urine Bilirubin Urine Urobilinogen (Auto) Ur Leukocyte Esterase Urine RBC Urine WBC Ur Squamous Epith Cells Urine Bacteria Misc Test Result Blood Type Antibody Screen Blood Bank Wristband ID ABG Interpretation ABG results: 09/07/24 11:45 ABG pH 7.38 ABG pCO2 35 ABG pO2 86 ABG HCO3 20 ABG O2 Saturation 98 ABG Base Excess -5 L Quality Measures Quality Measures none Advance care planning discussed with:: patient Assessment & Plan Assessment Current Active Medications: Generic Name Dose Route Start Last Admin Trade Name Freq PRN Reason Stop Dose Admin Acetaminophen 650 mg 09/07/24 16:29 09/07/24 18:05 Acetaminophen 325 Mg Tablet PO 10/07/24 16:28 650 mg Q6HR PRN Administration Fever >100.3 or pain Dextrose 25 ml 09/07/24 13:27 Dextrose 50%-Water Inj 50 Ml Syringe IV [id number] PRN Blood Sugar - Low Albumin Human 12.5 gm in 50 mls @ 100 mls/hr 09/07/24 18:00 09/08/24 05:16 Albuminar-25 Ivpb IV 10/07/24 17:59 100 mls/hr Q6HR WAYNE Administration Potassium Chloride 20 meq/ 1,010 mls @ 125 mls/hr 09/08/24 01:24 Lactated Ringer's IV 10/08/24 00:49 .Q8H5M PRN K LEVEL 3.3 TO 5.3mM/L Insulin Glargine 30 unit 09/08/24 01:00 09/08/24 01:55 Insulin Glargine (Lantus) 5 Unit/0.05 Ml (Per 5 Units) SC 10/22/24 00:47 30 unit BID WAYNE Administration Insulin Human Lispro 0 unit 09/08/24 07:30 Insulin Lispro (Admelog) 1 Unit/0.01 Ml Unit SC 10/08/24 07:29 ACHS WAYNE Protocol Sodium Bicarbonate 50 ml 09/07/24 13:27 Sodium Bicarb Inj 8.4% Syr 50 Ml Syringe IV 10/07/24 13:26 Q4HR PRN For ph <= to 7.0 Plan Patient is 63-year-old female with past medical history significant for cryptogenic cirrhosis, severe aortic stenosis and insulin-dependent diabetes mellitus [8.9%] presenting today after being referred by her doctor for abnormal labs. Patient will be admitted to the ICU for treatment and management of hyperosmolar hyperglycemia requiring insulin infusion. ENDO T2 IDDM [8.9%] Hyperosmolar hyperglycemic state- resolved DDx: Secondary to medication noncompliance Dx: Serum osmolality 330 -> 277, glucose 802 -> 166. Patient alert and oriented, not confused. Rx: Transitioned to Glargine 35 U HS and Lispro 2U sc TIDWM RRX: Downgraded to the floor NEURO No acute problems CVS Moderate Aortic Stenosis Dx: Moderate aortic stenosis seen on TTE. 3/6 ejection systolic murmur at right sternal border with radiation to bilateral carotids Rx: Continue outpatient follow-up for TAVR versus open repair RRx: Patient was not able to make her appointment outpatient. Inhouse Cardiology consultation. Heart failure with preserved ejection fraction Dx: EF 65% on TTE. CXR showed prominent vascular congestion and bilateral pulmonary edema. BNP elevated at 304 Rx: After treatment for hyperosmolar hyperglycemia, will start on fluid restriction RRx: If edema significantly worsens or patient experience shortness of breath will give Lasix x 1 PULM No acute problems GI/Hep Decompensated Cryptogenic cirrhosis with ascites, thrombocytopenia and coagulopathy Possible hepatorenal syndrome Dx: Baseline CR 1.1?1.2. On admission CR 1.9 Rx: Once stable for EGD with prophylactic banding as per GI, Dr Pérez, Recommendations RENAL IGNACIO likely pre-renal DDx: Possible Hepato-renal Rx: Albumin 12.5 G IV q6hrly as per nephrology recommendations HEME/ONC Macrocytic Anemia DDx: Vitamin deficiency, MICHELLE, anemia of chronic disease Dx: Hb 7.8 Rx: Monitor for signs of bleeding and CBC RRx: FOr outpatient workup ID No active problems MSK/DERM No active problems ICU Health maintenance: Dispo: Stable for downgrade to the floor Diet: Consistent Carb DVT ppx: SCDs GI ppx: None IV lines: 2 pIV Central line: No Arterial line: No Pugh: NO Code status: FULL CODE Plan of care discussed with Attending Dr. Dmitriy Barahona MD PGY 1 Disclaimer: This note was dictated by speech recognition. Minor errors in excelsior machine tender may be present due to voice recognition software.
[2024-09-08 07:13] LABS: Alanine Aminotransferase 20 U/L (10-49); Albumin, Serum 3.4 gm/dL (3.4-4.8); Albumin/Globulin Ratio 1.3 (1.2-2.2); Alkaline Phosphatase 174 U/L (46-116); Anion Gap 8 (7-16); Aspartate Amino Transferase 40 U/L (0-34); BUN/Creatinine Ratio 21 Ratio (12-20); Bilirubin,Total 4.1 mg/dL (0.3-1.2); Blood Urea Nitrogen 39 mg/dL (9-23); Calcium 9.5 mg/dL (8.3-10.6); Carbon Dioxide 22.6 mMol/L (20.0-31.0); Chloride 101 mMol/L (98-107); Creatinine (Component) 1.9 mg/dL (0.6-1.3); Estimated Creatinine Clearance 25.8 mL/min (>60); Globulin 2.6 gm/dL (2.3-3.5); Glucose 166 mg/dL (74-106); Magnesium 2.4 mg/dL (1.6-2.6); Osmolality,Calculated 277 (275-295); Phosphorous 3.9 mg/dL (2.4-5.1); Potassium 5.2 mMol/L (3.4-5.1); Sodium 132 mMol/L (136-145); eGFR 29 See Note
[2024-09-08] MEDS: INSULIN LISPRO (AdmeLOG) 1 UNIT/0.01 ML UNIT SC ×4 (07:32→20:16)
[2024-09-08] MEDS: INSULIN LISPRO (AdmeLOG) 1 UNIT/0.01 ML UNIT 2 UNIT SC ×3 (07:33→17:51)
[2024-09-08] MEDS: VIT B12/Vit C/FA (Nephrovite) TABLET 1 TAB PO (08:04)
--- NOTE | 2024-09-08 09:18 | PD.RESPRO ---
Documentation for date of: 09/08/24 Subjective Subjective Interval history: The patient is a 63-year-old female with a past medical history of cryptogenic cirrhosis, diabetes mellitus, anemia, who presented to the ER with shortness of breath and generalized swelling. The patient was directed to go to the ER after being evaluated by respiratory care instructor Dr. Pérez in his office, noted to have worsening renal function and volume overload. Per patient's , patient has had cryptogenic cirrhosis for past many years, has not been evaluated for liver transplant yet, was being managed for cirrhosis, started on diuretics, Lasix and spironolactone, which led to worsening renal function, was directed to discontinue diuretics which improved renal function but led to generalized edema. Of note patient had recently been admitted to the hospital for SBP following paracentesis almost 2 weeks ago. Currently patient denies any fever or abdominal pain, or chest pain. Comfortable at rest, no shortness of breath on laying down, but reported worsening dyspnea on exertion. Denied nausea, vomiting or diarrhea or GI bleed. 09/08/2024 is evaluated at bedside,Reported no acute complaints, noted improvement in patient's labs including hemoglobin and WBC count and platelets, slight improvement renal function BUN 37, creatinine 1.7, will continue with albumin challenge, improvement in patient's glucose, 92 on blood draw this a.m. recommend diabetic education and CGM monitoring at home for adequate glycemic control and preventing nephrological complications. Exam Vital Signs Temp Pulse Resp BP Pulse Ox O2 Del Method 97.4 F 63 16 144/61 H 99 Room Air 09/08/24 08:00 09/08/24 08:00 09/08/24 08:00 09/08/24 08:00 09/08/24 08:00 09/07/24 16:00 Narrative Exam Constitutional Alert, oriented x 3 and comfortable. Elderly female, jaundiced, scleral icterus. HEENT Vision grossly intact. Patent nares. Trachea midline Respiratory Chest normal on inspection and clear auscultation bilaterally, decreased air entry at bases Cardiovascular S1 and S2 audible, RRR. 3/6 ejection systolic murmur at right sternal border with radiation to bilateral carotids. JVD not assessed Abdominal Distended, abdominal striae, obese. BS+ Genitourinary No bladder tenderness, no flank pain. Normal to palpation Musculoskeletal Extremities tone within normal limits. 2+ lower extremity edema up to knees bilaterally Neurological CN II - XII grossly intact. Extremity motor and sensation grossly intact. Skin Warm, dry and intact. No apparent lesions. Psychiatric Patient has good affect, is cooperative Objective Labs 09/09/24 05:43 09/09/24 05:43 Labs: Laboratory Results - last 24 hr 09/07/24 09/07/24 09/07/24 10:03 11:15 11:45 WBC 2.0 L D RBC 2.26 L Hgb 7.8 L Hct 22.8 L MCV 101 H MCH 34.5 MCHC 34.2 RDW Std Deviation 67.0 H Plt Count 45 L D Neut % (Auto) 51 Lymph % (Auto) 34 [place] % (Auto) 12 Eos % (Auto) 4 Baso % (Auto) 1 Neut # (Auto) 1.0 L Lymph # (Auto) 0.7 L [place] # (Auto) 0.2 Eos # (Auto) 0.1 Baso # (Auto) 0.0 Immature Gran # (Auto) 0.01 H Absolute Nucleated RBC 0.00 Immature Gran % 1 H Nucleated RBC % 0 Smear Path Review Sent to Pathologist PT 17.4 H INR 1.6 H APTT 36.2 H Puncture Site Left Radial ABG pH 7.38 ABG pCO2 35 ABG pO2 86 ABG HCO3 20 ABG O2 Saturation 98 ABG Base Excess -5 L FiO2 21 Sodium 126 L Potassium 5.4 H D Chloride 96 L Carbon Dioxide 21.6 Anion Gap 8 BUN 36 H Creatinine 1.9 H Estim Creat Clear Calc 25.8 L eGFR 29 L BUN/Creatinine Ratio 19 Glucose 802 H* D Calculated Osmolality 300 H Lactic Acid 1.5 Calcium 9.2 Corrected Calcium 9.8 Phosphorus 4.5 Magnesium 1.4 L Total Bilirubin 3.1 H AST 34 ALT 20 Alkaline Phosphatase 278 H D Total Protein 5.8 Albumin 3.2 L Globulin 2.6 Albumin/Globulin Ratio 1.2 Beta-Hydroxybutyrate/Acetoacetate Ur Collection Type Clean Catch Urine Color Lt-Yellow Urine Clarity Clear Urine pH 6.0 Ur Specific [place] 1.020 Urine Protein Negative Urine Glucose (UA) 4+ A Urine Ketones Negative Urine Blood Negative Urine Nitrite Negative Urine Bilirubin Negative Urine Urobilinogen (Auto) Negative Ur Leukocyte Esterase Negative Urine RBC 1 Urine WBC 1 Ur Squamous Epith Cells 1 Urine Bacteria None Misc Test Result Platelets confirmed Blood Type Antibody Screen Blood Bank Wristband ID 09/07/24 09/07/24 09/07/24 11:58 16:40 20:30 WBC RBC Hgb Hct MCV MCH MCHC RDW Std Deviation Plt Count Neut % (Auto) Lymph % (Auto) [place] % (Auto) Eos % (Auto) Baso % (Auto) Neut # (Auto) Lymph # (Auto) [place] # (Auto) Eos # (Auto) Baso # (Auto) Immature Gran # (Auto) Absolute Nucleated RBC Immature Gran % Nucleated RBC % Smear Path Review PT INR APTT Puncture Site ABG pH ABG pCO2 ABG pO2 ABG HCO3 ABG O2 Saturation ABG Base Excess FiO2 Sodium 131 L 131 L Potassium 4.8 D 4.1 D Chloride 102 101 Carbon Dioxide 21.5 21.1 Anion Gap 8 9 BUN 35 H 37 H Creatinine 1.8 H 1.8 H Estim Creat Clear Calc 27.2 L 27.2 L eGFR 31 L 31 L BUN/Creatinine Ratio 19 21 H Glucose 473 H* D 287 H D Calculated Osmolality 291 281 Lactic Acid Calcium 9.1 9.6 Corrected Calcium 9.9 10.3 H Phosphorus 3.6 3.6 Magnesium 1.5 L 1.9 Total Bilirubin AST ALT Alkaline Phosphatase Total Protein Albumin 3.0 L 3.1 L Globulin Albumin/Globulin Ratio Beta-Hydroxybutyrate/Acetoacetate 0.1 Ur Collection Type Urine Color Urine Clarity Urine pH Ur Specific [place] Urine Protein Urine Glucose (UA) Urine Ketones Urine Blood Urine Nitrite Urine Bilirubin Urine Urobilinogen (Auto) Ur Leukocyte Esterase Urine RBC Urine WBC Ur Squamous Epith Cells Urine Bacteria Misc Test Result Blood Type O Positive Antibody Screen NEGATIVE Blood Bank Wristband ID Yes 09/08/24 09/08/24 00:30 05:50 WBC 4.9 D RBC 2.36 L Hgb 8.1 L Hct 23.9 L MCV 101 H MCH 34.3 MCHC 33.9 RDW Std Deviation 69.0 H Plt Count 67 L D Neut % (Auto) 58 Lymph % (Auto) 28 [place] % (Auto) 8 Eos % (Auto) 5 Baso % (Auto) 0 Neut # (Auto) 2.9 Lymph # (Auto) 1.4 [place] # (Auto) 0.4 Eos # (Auto) 0.3 Baso # (Auto) 0.0 Immature Gran # (Auto) 0.02 H Absolute Nucleated RBC 0.00 Immature Gran % 0 Nucleated RBC % 0 Smear Path Review PT INR APTT Puncture Site ABG pH ABG pCO2 ABG pO2 ABG HCO3 ABG O2 Saturation ABG Base Excess FiO2 Sodium 133 L 132 L Potassium 4.5 5.2 H D Chloride 104 101 Carbon Dioxide 22.4 22.6 Anion Gap 7 8 BUN 37 H 39 H Creatinine 1.7 H 1.9 H Estim Creat Clear Calc 28.8 L 25.8 L eGFR 33 L 29 L BUN/Creatinine Ratio 22 H 21 H Glucose 92 D 166 H D Calculated Osmolality 275 277 Lactic Acid Calcium 9.3 9.5 Corrected Calcium 9.9 10.0 Phosphorus 3.4 3.9 Magnesium 1.8 2.4 Total Bilirubin 4.1 H D AST 40 H ALT 20 Alkaline Phosphatase 174 H D Total Protein 6.0 Albumin 3.3 L 3.4 Globulin 2.6 Albumin/Globulin Ratio 1.3 Beta-Hydroxybutyrate/Acetoacetate Ur Collection Type Urine Color Urine Clarity Urine pH Ur Specific [place] Urine Protein Urine Glucose (UA) Urine Ketones Urine Blood Urine Nitrite Urine Bilirubin Urine Urobilinogen (Auto) Ur Leukocyte Esterase Urine RBC Urine WBC Ur Squamous Epith Cells Urine Bacteria Misc Test Result Blood Type Antibody Screen Blood Bank Wristband ID ABG Interpretation ABG results: 09/07/24 11:45 ABG pH 7.38 ABG pCO2 35 ABG pO2 86 ABG HCO3 20 ABG O2 Saturation 98 ABG Base Excess -5 L Quality Measures Quality Measures none Advance care planning discussed with:: patient Assessment & Plan Assessment Current Active Medications: Generic Name Dose Route Start Last Admin Trade Name Freq PRN Reason Stop Dose Admin Acetaminophen 650 mg 09/07/24 16:29 09/07/24 18:05 Acetaminophen 325 Mg Tablet PO 10/07/24 16:28 650 mg Q6HR PRN Administration Fever >100.3 or pain Dextrose 25 ml 09/07/24 13:27 Dextrose 50%-Water Inj 50 Ml Syringe IV [id number] PRN Blood Sugar - Low Albumin Human 12.5 gm in 50 mls @ 100 mls/hr 09/07/24 18:00 09/08/24 05:16 Albuminar-25 Ivpb IV 10/07/24 17:59 100 mls/hr Q6HR WAYNE Administration Insulin Glargine 35 unit 09/08/24 21:00 Insulin Glargine (Lantus) 5 Unit/0.05 Ml (Per 5 Units) SC 10/08/24 20:59 HS WAYNE Insulin Human Lispro 0 unit 09/08/24 07:30 09/08/24 07:32 Insulin Lispro (Admelog) 1 Unit/0.01 Ml Unit SC 10/08/24 07:29 1 unit ACHS [facility] Administration Protocol Insulin Human Lispro 2 unit 09/08/24 08:00 09/08/24 07:33 Insulin Lispro (Admelog) 1 Unit/0.01 Ml Unit SC 10/08/24 07:59 2 unit TIDWM [facility] Administration Vitamin B Complex/Vit C/Folic Acid 1 tab 09/08/24 09:00 09/08/24 08:04 Vit B12/Vit C/Fa (Nephrovite) Tablet PO 10/08/24 08:59 1 tab QDAY [facility] Administration Plan The patient is a 63-year-old female with a past medical history of cryptogenic cirrhosis, diabetes mellitus, anemia, who presented to the ER with shortness of breath and generalized swelling. The patient was directed to go to the ER after being evaluated by respiratory care instructor Dr. Pérez in his office, noted to have worsening renal function and volume overload. Per patient's , patient has had cryptogenic cirrhosis for past many years, has not been evaluated for liver transplant yet, was being managed for cirrhosis, started on diuretics, Lasix and spironolactone, which led to worsening renal function, was directed to discontinue diuretics which improved renal function but led to generalized edema. Of note patient had recently been admitted to the hospital for SBP following paracentesis almost 2 weeks ago. Currently patient denies any fever or abdominal pain, or chest pain. Comfortable at rest, no shortness of breath on laying down, but reported worsening dyspnea on exertion. Denied nausea, vomiting or diarrhea or GI bleed. In the ER, patient was found to have labs consistent with anemia, leukopenia, thrombocytopenia, as well as hyponatremia, mild hyperkalemia, IGNACIO, and hyperglycemia. Osmolarity 300, blood glucose 802, patient was started on insulin drip for hyperglycemic hyperosmolar syndrome the patient was admitted to ICU for insulin drip and further management. Nephrology was consulted for acute kidney injury/CKD. EKG showed right bundle branch block. #Acute on chronic kidney injury #Possible hepatorenal syndrome type II Patient seems to have underlying CKD, stage IIb, now presented with IGNACIO on CKD, following Lasix and spironolactone use, creatinine worsened to 2.8, in outpatient setting, now improved to creatinine 1.9 following discontinuation of diuretics, but presented with worsening anasarca. ? IV albumin 25 g every 6 hours, will give albumin challenge 100 g to assess for improvement in renal function. ? Strict urine output monitoring ? Ultrasound bilateral kidneys ? Avoid nephrotoxic drugs, renal dosing #Hyperglycemia, possible HHS Fingerstick glucose as high as 1000, glucose on blood draw 802, patient was prescribed insulin 4 weeks ago, per they have been taking insulin every day, would likely benefit from diabetic education and insulin administration education. ? Insulin GTT, management per primary team #Pancytopenia #History of cirrhosis, decompensated #Hyponatremia #Hyperkalemia ? Management per primary team Plan of care discussed with attending Dr. Zandra Mcleod PGY2 Attending Provider Attestation/Addendum Patient seen and examined with resident physician Dr. Mcleod. Note reviewed, agree with findings and recommendations. Patient comfortable. Alert and awake. Creatinine improving
--- NOTE | 2024-09-08 10:57 | ESPR_ITS ---
<Statement entered by Biju Ross MD - 09/14/24 08:55> I reviewed above note and agree with findings and plans. I have also personally examined the patient with medicine team and went over assessment and plan with medical team including strategy intern and resident physician. Documentation for date of: 09/08/24 Subjective Subjective Interval history: Patient is an ICU downgrade. Patient was transition from insulin drip to subcu insulin. Will continue to monitor patient's glucose. Patient is seen and examined in ICU. Patient still denies any nausea vomiting is able to tolerate oral diet. Labs are reviewed and vitals are stable. Patient states she has been compliant with her medication however there were some adjustment being made with Lantus by her primary care. However her blood glucose was running high she denied any symptoms and was not aware of how high her blood glucose was during a routine follow-up with her primary. Patient has no complaints we will continue to monitor patient in telemetry. Exam Vital Signs Temp Pulse Resp BP Pulse Ox O2 Del Method 97.4 F 63 16 144/61 H 99 Room Air 09/08/24 08:00 09/08/24 08:00 09/08/24 08:00 09/08/24 08:00 09/08/24 08:00 09/07/24 16:00 Narrative Exam GENERAL: A&Ox3 . Awake, Not in acute distress NEURO: no focal neurological deficits HEENT: Atraumatic, Normocephalic. mucous membranes moist. Eyes open, symmetrical, & clear HEART: systolic murmur at right sternal border heard LUNGS: Clear to auscultation with no wheezing or crackles. ABDOMEN: soft, non-distended obese abdomen, non-tender, bowel sounds heard, no guarding or rebound tenderness SKIN: No Rash or ecchymoses EXTREMITIES: No edema, tenderness, able to move all 4 extremities, pedal pulses palpated Objective Labs 09/09/24 05:43 09/09/24 05:43 Labs: Laboratory Results - last 24 hr 09/07/24 09/07/24 09/07/24 11:15 11:45 11:58 WBC RBC Hgb Hct MCV MCH MCHC RDW Std Deviation Plt Count Neut % (Auto) Lymph % (Auto) [place] % (Auto) Eos % (Auto) Baso % (Auto) Neut # (Auto) Lymph # (Auto) [place] # (Auto) Eos # (Auto) Baso # (Auto) Immature Gran # (Auto) Absolute Nucleated RBC Immature Gran % Nucleated RBC % Puncture Site Left Radial ABG pH 7.38 ABG pCO2 35 ABG pO2 86 ABG HCO3 20 ABG O2 Saturation 98 ABG Base Excess -5 L FiO2 21 Sodium Potassium Chloride Carbon Dioxide Anion Gap BUN Creatinine Estim Creat Clear Calc eGFR BUN/Creatinine Ratio Glucose Calculated Osmolality Calcium Corrected Calcium Phosphorus Magnesium Total Bilirubin AST ALT Alkaline Phosphatase Total Protein Albumin Globulin Albumin/Globulin Ratio Beta-Hydroxybutyrate/Acetoacetate 0.1 Ur Collection Type Clean Catch Urine Color Lt-Yellow Urine Clarity Clear Urine pH 6.0 Ur Specific [place] 1.020 Urine Protein Negative Urine Glucose (UA) 4+ A Urine Ketones Negative Urine Blood Negative Urine Nitrite Negative Urine Bilirubin Negative Urine Urobilinogen (Auto) Negative Ur Leukocyte Esterase Negative Urine RBC 1 Urine WBC 1 Ur Squamous Epith Cells 1 Urine Bacteria None Blood Type O Positive Antibody Screen NEGATIVE Blood Bank Wristband ID Yes 09/07/24 09/07/24 09/08/24 16:40 20:30 00:30 WBC RBC Hgb Hct MCV MCH MCHC RDW Std Deviation Plt Count Neut % (Auto) Lymph % (Auto) [place] % (Auto) Eos % (Auto) Baso % (Auto) Neut # (Auto) Lymph # (Auto) [place] # (Auto) Eos # (Auto) Baso # (Auto) Immature Gran # (Auto) Absolute Nucleated RBC Immature Gran % Nucleated RBC % Puncture Site ABG pH ABG pCO2 ABG pO2 ABG HCO3 ABG O2 Saturation ABG Base Excess FiO2 Sodium 131 L 131 L 133 L Potassium 4.8 D 4.1 D 4.5 Chloride 102 101 104 Carbon Dioxide 21.5 21.1 22.4 Anion Gap 8 9 7 BUN 35 H 37 H 37 H Creatinine 1.8 H 1.8 H 1.7 H Estim Creat Clear Calc 27.2 L 27.2 L 28.8 L eGFR 31 L 31 L 33 L BUN/Creatinine Ratio 19 21 H 22 H Glucose 473 H* D 287 H D 92 D Calculated Osmolality 291 281 275 Calcium 9.1 9.6 9.3 Corrected Calcium 9.9 10.3 H 9.9 Phosphorus 3.6 3.6 3.4 Magnesium 1.5 L 1.9 1.8 Total Bilirubin AST ALT Alkaline Phosphatase Total Protein Albumin 3.0 L 3.1 L 3.3 L Globulin Albumin/Globulin Ratio Beta-Hydroxybutyrate/Acetoacetate Ur Collection Type Urine Color Urine Clarity Urine pH Ur Specific [place] Urine Protein Urine Glucose (UA) Urine Ketones Urine Blood Urine Nitrite Urine Bilirubin Urine Urobilinogen (Auto) Ur Leukocyte Esterase Urine RBC Urine WBC Ur Squamous Epith Cells Urine Bacteria Blood Type Antibody Screen Blood Bank Wristband ID 09/08/24 05:50 WBC 4.9 D RBC 2.36 L Hgb 8.1 L Hct 23.9 L MCV 101 H MCH 34.3 MCHC 33.9 RDW Std Deviation 69.0 H Plt Count 67 L D Neut % (Auto) 58 Lymph % (Auto) 28 [place] % (Auto) 8 Eos % (Auto) 5 Baso % (Auto) 0 Neut # (Auto) 2.9 Lymph # (Auto) 1.4 [place] # (Auto) 0.4 Eos # (Auto) 0.3 Baso # (Auto) 0.0 Immature Gran # (Auto) 0.02 H Absolute Nucleated RBC 0.00 Immature Gran % 0 Nucleated RBC % 0 Puncture Site ABG pH ABG pCO2 ABG pO2 ABG HCO3 ABG O2 Saturation ABG Base Excess FiO2 Sodium 132 L Potassium 5.2 H D Chloride 101 Carbon Dioxide 22.6 Anion Gap 8 BUN 39 H Creatinine 1.9 H Estim Creat Clear Calc 25.8 L eGFR 29 L BUN/Creatinine Ratio 21 H Glucose 166 H D Calculated Osmolality 277 Calcium 9.5 Corrected Calcium 10.0 Phosphorus 3.9 Magnesium 2.4 Total Bilirubin 4.1 H D AST 40 H ALT 20 Alkaline Phosphatase 174 H D Total Protein 6.0 Albumin 3.4 Globulin 2.6 Albumin/Globulin Ratio 1.3 Beta-Hydroxybutyrate/Acetoacetate Ur Collection Type Urine Color Urine Clarity Urine pH Ur Specific [place] Urine Protein Urine Glucose (UA) Urine Ketones Urine Blood Urine Nitrite Urine Bilirubin Urine Urobilinogen (Auto) Ur Leukocyte Esterase Urine RBC Urine WBC Ur Squamous Epith Cells Urine Bacteria Blood Type Antibody Screen Blood Bank Wristband ID ABG Interpretation ABG results: 09/07/24 11:45 ABG pH 7.38 ABG pCO2 35 ABG pO2 86 ABG HCO3 20 ABG O2 Saturation 98 ABG Base Excess -5 L Quality Measures Quality Measures none Advance care planning discussed with:: patient Assessment & Plan Assessment Current Active Medications: Generic Name Dose Route Start Last Admin Trade Name Freq PRN Reason Stop Dose Admin Acetaminophen 650 mg 09/07/24 16:29 09/07/24 18:05 Acetaminophen 325 Mg Tablet PO 10/07/24 16:28 650 mg Q6HR PRN Administration Fever >100.3 or pain Dextrose 25 ml 09/07/24 13:27 Dextrose 50%-Water Inj 50 Ml Syringe IV [id number] PRN Blood Sugar - Low Albumin Human 12.5 gm in 50 mls @ 100 mls/hr 09/07/24 18:00 09/08/24 05:16 Albuminar-25 Ivpb IV 10/07/24 17:59 100 mls/hr Q6HR [facility] Administration Insulin Glargine 35 unit 09/08/24 21:00 Insulin Glargine (Lantus) 5 Unit/0.05 Ml (Per 5 Units) SC 10/08/24 20:59 HS WAYNE Insulin Human Lispro 0 unit 09/08/24 07:30 09/08/24 07:32 Insulin Lispro (Admelog) 1 Unit/0.01 Ml Unit SC 10/08/24 07:29 1 unit ACHS [facility] Administration Protocol Insulin Human Lispro 2 unit 09/08/24 08:00 09/08/24 07:33 Insulin Lispro (Admelog) 1 Unit/0.01 Ml Unit SC 10/08/24 07:59 2 unit TIDWM [facility] Administration Vitamin B Complex/Vit C/Folic Acid 1 tab 09/08/24 09:00 09/08/24 08:04 Vit B12/Vit C/Fa (Nephrovite) Tablet PO 10/08/24 08:59 1 tab QDAY [facility] Administration Plan Ms. Charlton is a 63-year-old female with past medical history significant for cryptogenic cirrhosis, severe aortic stenosis and insulin-dependent diabetes mellitus [8.9%] presenting today after being referred by her doctor for abnormal labs. Patient will be admitted to the ICU on 09/08/24 for treatment and management of hyperosmolar hyperglycemia requiring insulin infusion and transistion to SC insulin. Pt is downgraded to telemetry on 09/08 #Hyperosmolar hyperglycemia-resolved #Insulin-dependent type 2 diabetes -A1c on 08/15/24 8.9 - Although patient states she has been compliant with her medications that however she was undergoing through dose adjustments with her primary care who has been slowly increasing the Lantus. Patient states that she was given 20 units of Lantus however when she went to the clinic for a follow-up appointment with primary she was found to have blood glucose of over 800 and was sent to the ED. Patient was admitted to the ICU for insulin drip, currently transition to subcu insulin - Insulin sliding scale ordered - Glargine 35 units at bedtime ordered by ICU team - Lispro 2 units SQ 3 times daily with meals - Hypoglycemia protocol ordered #Acute kidney injury #Possible hepatorenal syndrome Baseline creatinine is 1.0 and creatinine on admission is 2.8 likely prerenal in the setting of diuretic use. During hospitalization patient's creatinine improved to 1.9 after discontinuation of the diuretics however patient continues to have anasarca Plan -Strict I's and O's -Ultrasound of the kidneys ordered -IV albumin 25 g every 6 hours - Consulted nephrology, recommendations -Avoid nephrotoxic's and renally dose medications #Decompensated liver cirrhosis with ascites #Thrombocytopenia #Coagulopathy # History of acute fatty liver of - Patient states when she was with her daughter decades ago she was told she has fatty liver of and since then it has progressed to cirrhosis. Patient does not drink alcohol -Hepatitis panel from 08/15/2024 is nonreactive -AST mildy elvated, ALT WNL, T rodriguez elevated Patient was recently-hospitalized due to severe ascites and underwent paracentesis. Plan: -Pt does not appear to be in acute decompensated state, abdomen is not distended -Will continue to closely monitor -Pt will need routine follows up outpatient with GI adn assembler production line. #HFpEF #Moderate aortic stenosis - Echo done on 08/15/24- Estimated EF 65%.[id number] MR. Moderate thickening of the AV. Mild to moderate , mean gradient 18 mmHg - BNP 304 Chest x-ray on admission showed prominent vascular congestion and bilateral pulmonary edema - Strict I's and O's -Pt has an appointment to follow up with piece cutter Dr. Clark on Friday09/10/24 - Cardiology consulted, appreciate recommendations Health Maintenance Disposition: telemetry DVT Prophylaxis: SCD QSHIFT GI Prophylaxis: not indicated Diet: carbohydrate consistent Lines: Peripheral lines Code status: Full Assessment and plan discussed with my attending physician Dr. Cody Paz (PGY-1)- Internal medicine resident
[2024-09-08 11:49] LABS: Slide Review Platelets confirmed
--- NOTE | 2024-09-08 13:43 | PD.RESCONSUL ---
HPI Data of Consult Requesting Physician: Dougie Izaguirre MD Admitting Provider: Dougie Izaguirre MD Attending Provider: Dougie Izaguirre MD Primary Care Provider: Kaylie Montes MD Consult Narrative History of present illness: cc: sent GI physician for concern of low hgb Patient is 63-year-old female with past medical history significant for cryptogenic cirrhosis, moderate aortic stenosis, insulin-dependent diabetes mellitus [8.9%] who presented to the emergency room for abnormal labs by GI physician. In the ER, patient noted for hyperosmalar hyperglycemic and admitted to ER. Peripheral edema notedPatient denied chest pain, palpitations, nausea or vomiting. NO diaphoresis. No dyspnea. No PND. Patient intially admitted on 09/07/2024 directly into the ICU for concern of HHS. Upon questioning patient denied any symptoms including chest pain/pressure, vomiting, diarrhea, poor oral intake, dysuria, sick contacts and recent travel. She was recently hospitalized last month for anasarca and also had an ICU admission at the time requiring vasopressors for hepatorenal and hepatopulmonary syndrome. ED course: BP 153/70, pulse 89, RR 18, temp 98.3 F, SpO2 99% on room air. Labs showed Hb 7.8, WBC 2, PLT 45, BUN 35, CR 1.9, glucose 802, PT 17.4, INR 1.6, T. bili 3.1. Osmolality 330 Chest x-ray showed bilateral pulmonary edema In the ED patient received normal saline 2L IVF bolus insulin 10 units IV x 1. Cardiology Consulted on 09/08/2024 for Aortic Stenosis, known cardiology patient. PMH Cryptogenic Cirrhosis Severe Aortic Stenosis Diabetes Mellitus Type 2 PSH C-sections Allergies None Social Denied Alcohol use Denied Illict Drug Use Never smoker cc:: cc: Dougie Izaguirre MD Review of Systems Constitutional Comments: General appearance: NO weight change, NO fatigue, NO weakness, NO fever, NO chills, NO night sweats, No cough Skin: NO rash, NO itching, NO sores, NO moles HEENT: NO Trauma, NO nausea, NO vomiting, NO visual changes, NO blurry vision, NO double vision, NO tinnitus, NO vertigo, NO ear discharge, NO rhinorrhea, NO stuffiness, NO sneezing, NO allergy, NO epistaxis. NO Hoarseness, NO sore throat, NO swollen neck. Cardiac: NO Palpitations, NO dyspnea on exertion, NO orthopnea, NO paroxysmal nocturnal dyspnea, NO edema Respiratory: NO Shortness of Breath, NO Wheezing, NO Cough, NO Sputum, NO hemoptysis GI:NO appetite, NO nausea, NO vomiting, NO dysphagia, NO changes in bowel frequency, NO stool color, NO diarrhea, NO constipation, NO hemetemesis, NO hemorrhoids, NO melena, NO hematechezia, NO abdominal pain, NO jaundice Renal: NO frequency, NO hesitancy, NO urgency, NO hematuria, NO nocturia, NO incontinence MSK: NO muscle weakness, NO gout, NO arthritis, NO muscle stiffness Neuro: NO headaches, NO tremors, NO weakness, NO paralysis, NO seizures, NO loss of consciousness, NO numbness. Hem: NO anemia, NO easy bruising/bleeding, NO petechiae, NO purpura Endo: NO heat/cold intolerance, NO excessive sweating, NO polyuria, NO polydipsia, NO polyphagia, NO thyroid problems, YES diabetes Pysch: NO mood, NO anxiety, NO depression Exam Vital Signs Temp Pulse Resp BP Pulse Ox O2 Del Method 98 F 73 27 H 152/58 H 98 Room Air 09/08/24 12:00 09/08/24 12:00 09/08/24 12:09/08/24 12:09/08/24 12:09/07/24 16:00 Narrative Exam General Appearance: Alert & Oriented X3, well-nourished female who is lying in bed in no acute distress. No nasal cannual HEENT: Skull symmetrical and atraumatic. Conjunctivae pale and moist. Sclera icterus Pupils equal, round, reactive to light and accommodation (PERRL). External ear without lesion or discharge. Straight, nares patient, mucosa pink, no discharge. No thyroid nodule appreciated. No cervical lymphadenopathy. Cardio: Normal Rate and Rhythm with S1 and S2 heart sounds. Systolic Murmur likely holosystolic. No bruits on carotid auscultation. Peripheral edema noted. 1+ Lungs: Symmetric with good expansion. Chest and back non-tender. Breath sounds vesicular without crackles, wheezing or rhonchi Abdomen: Non-tender, Non-distended, Normal Reactive Bowel Sounds Neuro: Alert, cooperative, oriented to person, place, and time. Speech clear. CN grossly intact. Upper motor strength 5/5 and Lower motor strength 5/5. Sensation intact. Results Labs 09/09/24 05:43 09/09/24 05:43 Labs: Short CBC 09/08/24 Range/Units 05:50 WBC 4.9 D (3.6-11.0) Thou/mm3 Hgb 8.1 L (12.0-16.0) g/dL Hct 23.9 L (36.0-46.0) % Plt Count 67 L D (140-440) Thou/mm3 BMP 09/07/24 09/07/24 09/08/24 16:40 20:30 00:30 Sodium 131 L 131 L 133 L Potassium 4.8 D 4.1 D 4.5 Chloride 102 101 104 Carbon Dioxide 21.5 21.1 22.4 BUN 35 H 37 H 37 H Creatinine 1.8 H 1.8 H 1.7 H Glucose 473 H* D 287 H D 92 D Calcium 9.1 9.6 9.3 09/08/24 05:50 Sodium 132 L Potassium 5.2 H D Chloride 101 Carbon Dioxide 22.6 BUN 39 H Creatinine 1.9 H Glucose 166 H D Calcium 9.5 Liver Function 09/07/24 09/07/24 09/08/24 Range/Units 16:40 20:30 00:30 Total Bilirubin (0.3-1.2) mg/dL AST (0-34) U/L ALT (10-49) U/L Alkaline Phosphatase (46-116) U/L Albumin 3.0 L 3.1 L 3.3 L (3.4-4.8) gm/dL 09/08/24 Range/Units 05:50 Total Bilirubin 4.1 H D (0.3-1.2) mg/dL AST 40 H (0-34) U/L ALT 20 (10-49) U/L Alkaline Phosphatase 174 H D (46-116) U/L Albumin 3.4 (3.4-4.8) gm/dL ABG Interpretation ABG results: 09/07/24 11:45 ABG pH 7.38 ABG pCO2 35 ABG pO2 86 ABG HCO3 20 ABG O2 Saturation 98 ABG Base Excess -5 L Quality Measures Quality Measures none Advance care planning discussed with:: patient Medications Home Medications and Allergies Home Medications ?Medication ?Instructions ?Recorded ?Confirmed ?Type simvastatin 10 mg tablet (Zocor) 10 mg PO HS #0 tabs 12/07/15 09/08/24 History hydrocodone 7.5 mg-ibuprofen 200 1 tab PO TID PRN Pain 04/27/20 09/08/24 History mg tablet losartan 50 mg tablet 50 mg PO QDAY 06/24/22 09/08/24 History Held on 09/09/24. Instructions: Resume on 09/16/24. Hold until follow up with PCP folic acid 1 mg tablet 1 mg PO QDAY 08/14/24 09/08/24 History albuterol sulfate 90 mcg/actuation 2 puff inhalation .COMPLEX sob 09/08/24 09/08/24 History aerosol inhaler Allergies Allergy/AdvReac Type Severity Reaction Status Date / Time No Known Allergies Allergy Verified 09/07/24 08:41 Visit Medications Acetaminophen (Acetaminophen 325 Mg Tablet) 650 mg PO Q6HR PRN PRN Reason: Fever >100.3 or pain Stop: 10/07/24 16:28 Last Admin: 09/07/24 18:05 Dose: 650 mg Dextrose (Dextrose 50%-Water Inj 50 Ml Syringe) 25 ml IV [id number] PRN PRN Reason: Blood Sugar - Low Albumin Human (Albuminar-25 Ivpb) 12.5 gm in 50 mls @ 100 mls/hr IV Q6HR [facility] Stop: 10/07/24 17:59 Last Admin: 09/08/24 11:29 Dose: 100 mls/hr Insulin Glargine (Insulin Glargine (Lantus) 5 Unit/0.05 Ml (Per 5 Units)) 35 unit SC HS [facility] Stop: 10/08/24 20:59 Insulin Human Lispro (Insulin Lispro (Admelog) 1 Unit/0.01 Ml Unit) 0 unit SC ACHS [facility]; Protocol Stop: 10/08/24 07:29 Last Admin: 09/08/24 11:28 Dose: 1 unit Insulin Human Lispro (Insulin Lispro (Admelog) 1 Unit/0.01 Ml Unit) 2 unit SC TIDWM [facility] Stop: 10/08/24 07:59 Last Admin: 09/08/24 11:29 Dose: 2 unit Vitamin B Complex/Vit C/Folic Acid (Vit B12/Vit C/Fa (Nephrovite) Tablet) 1 tab PO QDAY [facility] Stop: 10/08/24 08:59 Last Admin: 09/08/24 08:04 Dose: 1 tab Discontinued Medications Sodium Chloride (Ns) 1,000 mls @ 100 mls/hr IV .Q10H ONE Stop: 09/07/24 19:23 Last Infusion: 09/07/24 11:37 Dose: 0 mls/hr Sodium Chloride (Ns) 1,000 mls @ 999 mls/hr IV .Q1H1M ONE Stop: 09/07/24 12:20 Last Infusion: 09/07/24 12:43 Dose: Infused Insulin Human Regular (Myxredlin) 100 unit in 100 mls @ 6.668 mls/hr IV .Q15H PRN; Protocol PRN Reason: PER PROTOCOL Stop: 10/07/24 11:21 Last Titration: 09/07/24 23:00 Dose: 0 unit/kg/hr, 0 mls/hr Sodium Chloride (Ns) 1,000 mls @ 500 mls/hr IV .Q2H [facility] Stop: 10/07/24 13:26 Last Admin: 09/07/24 14:11 Dose: Not Given Potassium Chloride (Kcl Ivpb) 10 meq in 100 mls @ 100 mls/hr IV .Q1H PRN PRN Reason: IF POTASSIUM LESS THAN 3.3 Stop: 10/07/24 13:26 Magnesium Sulfate (Magnesium Sulfate Ivpb) 2 gm in 50 mls @ 25 mls/hr IV .Q2H PRN PRN Reason: PER DKA PROTOCOL Stop: 10/07/24 13:26 Last Infusion: 09/08/24 00:00 Dose: Infused Dextrose/Lactated Ringer's (D5-Lr) 1,000 mls @ 250 mls/hr IV .Q4H PRN PRN Reason: PER PROTOCOL Stop: 10/07/24 13:26 Lactated Ringer's (Lactated Ringers) 1,000 mls @ 250 mls/hr IV .Q4H PRN PRN Reason: PER PROTOCOL Stop: 09/08/24 13:26 Last Infusion: 09/07/24 18:45 Dose: Infused Potassium Chloride 20 meq/ (Lactated Ringer's) 1,010 mls @ 250 mls/hr IV .Q4H3M PRN PRN Reason: K LEVEL 3.3 TO 5.3mM/L Stop: 10/07/24 13:26 Last Infusion: 09/08/24 02:07 Dose: 0 mls/hr Potassium Chloride 40 meq/ (Lactated Ringer's) 1,020 mls @ 250 mls/hr IV .Q4H5M PRN PRN Reason: K LEVEL < 3.3 mM/L Stop: 10/07/24 13:26 Potassium Chloride 40 meq/ (Dextrose/Lactated Ringer's) 1,020 mls @ 250 mls/hr IV .Q4H5M PRN PRN Reason: K LEVEL < 3.3mM/L Stop: 10/07/24 13:26 Potassium Cl/Dextrose/Lact Ringer's (Kcl 20 Meq/L In D5-Lr) 20 meq in 1,000 mls @ 250 mls/hr IV .Q4H PRN PRN Reason: K LEVEL 3.3 TO 5.3 mM/L Stop: 10/07/24 13:26 Potassium Chloride (Kcl Ivpb) 10 meq in 100 mls @ 50 mls/hr IV PRN PRN PRN Reason: K LEVEL 3.3 to 5.3 & BG > 200 Stop: 10/07/24 13:26 Potassium Phosphate (Pot Phos 15 Mmol In Ns 250 Ml) 15 mmol in 250 mls @ 62.5 mls/hr IV PRN PRN PRN Reason: Phosphate <= 1mg/dL Stop: 10/07/24 13:26 Sodium Phosphate 15 mmol/ (Sodium Chloride) 255 mls @ 62.5 mls/hr IV .Q4H5M PRN PRN Reason: Phosphate <= 1mg/dL and K> than 5.3 Stop: 10/07/24 13:26 Potassium Chloride 20 meq/ (Lactated Ringer's) 1,010 mls @ 125 mls/hr IV .Q8H5M PRN PRN Reason: K LEVEL 3.3 TO 5.3mM/L Stop: 10/08/24 00:49 Magnesium Sulfate (Magnesium Sulfate Ivpb) 2 gm in 50 mls @ 25 mls/hr IV X1 ONE Stop: 09/08/24 03:29 Last Admin: 09/08/24 01:59 Dose: 25 mls/hr Insulin Glargine (Insulin Glargine (Lantus) 5 Unit/0.05 Ml (Per 5 Units)) 30 unit SC BID [facility] Stop: 10/22/24 00:47 Last Admin: 09/08/24 01:55 Dose: 30 unit Insulin Human Lispro (Insulin Lispro (Admelog) 1 Unit/0.01 Ml Unit) 0 unit SC TIDWMEAL [facility]; Protocol Stop: 10/08/24 07:59 Insulin Human Regular (Insulin Hum Regular 1 Unit/0.01 Ml (Per Unit)) 10 unit IV X1 ONE Stop: 09/07/24 11:21 Last Admin: 09/07/24 11:41 Dose: 10 unit Sodium Bicarbonate (Sodium Bicarb Inj 8.4% Syr 50 Ml Syringe) 50 ml IV Q4HR PRN PRN Reason: For ph <= to 7.0 Stop: 10/07/24 13:26 Assessment & Plan Plan Patient is 63-year-old female with past medical history significant for cryptogenic cirrhosis, moderate aortic stenosis, insulin-dependent diabetes mellitus [8.9%] who presented to the emergency room for abnormal labs by GI physician who was admitted for hyperglycemia/HHS. Cardiology consulted for mild to moderate aortic stenosis. #Moderate Aortic Stenosis #Congestive Heart Failure #Diastolic Dysfunction CHFpEF 65% Patient is a known patient to cardiology and is pending follow up as an outpatient. Peripheral edema. Patient denied shortness of breath. Denied PND and orthopnea only present when patient abdominal distention secondary to cirrhosis. Patient does have mild to moderate aortic stenosis. CHF can not be ruled out given prominent vascular congestion and previously elevated BNP (08/14/2024) and vascular congestion noted on Cxr vs secondary. Follow up with BNP, urine output, and daily weight ins. to hepta-pulmonary congestion secondary to cirrhosis. Continue to monitor Echo (08/15/2024): Normal LVsize and wall thickness. Estimated EF 65%. The RV is normal in size and systolic function. Moderately increased LA volume 39 mL/m?. [id number] MR. Moderate thickening of the AV. Mild to moderate , mean gradient 18 mmHg, JORGE 1 cm?. There is mild TR and PI. Inferior vena cava not well visualized EKG: Sinus rhythm, right bbb QRS 137, QTc 452; Troponin (08/14/2024) <0.02, BNP (08/14/24) 305 Chest x-ray (09/07/2024): Mild to heart failure, mild to moderate enlargement cardiac countour. Prominent vascular congestion Plan -Strict in and outs -consider daily weight checks -Holding off lasix given IGNACIO, consider AM or vascular congestion worsens -AM BNP, Lipid panel, TSH -Holding off fluid restriction given IGNACIO -K>4, and Mg >2, with caution given IGNACIO #Acute on Chronic Kidney Injury #CKD stage IIb #Hyperkalemia #Mild Hyponatremia #Hx of Hypertension Patient likely has underlying CKD, givne last GFR >60 was noted in 07/23/2024 as single outlier. During this admission, paitnet had worsening Cr at 2.2 which is greater than 0.2 baseline. Likely IGNACIO in the setting of spirnolactone and lasix. Less likely secondary to heptarenal syndrome as improvment noted after albumin given. No pressors ever noted. Monitor for intrinsic kidney injury, although patient was been making appropriate urine based on patient's weight. Renal US (09/07/2024): Small kidneys w/ bilateral renal cortical thinning. MOderate bilateral renal parenchymal scar formation Plan -Albumin IV -Strict in and Outs -Holding off ARBs, home medication possibly Losartan -Avoid nephtroxins -renally dose medication -Nephrology following #Hyperglycemia, improved #Diabetes Mellitus, Type 2 insulin dependent #Hyperosmolar hyperglycemia, resolved Patient has a past medical history of diabetes mellitus who was previously discharged on Metformin 1000 mg BID and Glargine 10 units subq. Patient was admitted directly into the icu on 09/07/2024 secondary to HHS. Plan -by primary team -Glargine 35 units HS -Lispor 3 units TID -Sliding Sclae -Patient would likely benefit from CGM -continue to monitor fasting blood glucos e #Decompensated Cirrhosis w/ ascites secondary to cryptogenic #Thrombocytopenia #Hyperbirubinemia #Pancytopnea, resolved Pateint has a past medical history of decompensated liver cirrhosis that devloped gradually after . Previous Hep panel negaitve. S/P one paracentesis who was treated for SBP. Child Marshall Score 9 MELD NA 7-10% Plan -Holding Lasix & Spirnolactone -Patient would benefit from liver biopsy and outpatient follow up #Macrocytic Anemia Macrocytic anemia likely inthe setting of liver failure vs chronic disease vs iron deficiency. Continue to monitor, may benefit from EPO. Iron panel shows: Iron of 23, TIBC 179, iron saturation 12%, ferritin 128 Plan -continue to monitor Health Maintenance: Disp: Pt is currently admitted to floors for further management of HHS, cardiology consulted for history of mild to moderate Aortic stenosis. FEN: low carb consistent DVT: on subQ heparin Code: Full Code - The patient's plan was discussed with attending Dr. Eduardo Mcnally MD PGY1 Internal Medicine Attending Provider Attestation/Addendum I have personally seen and examined the patient separately on the above date of service and discussed the plan of care with the resident. I reviewed the resident Dr. Shobha Mcnally consultation progress note and agree with the resident findings and plan in the note above and have also edited the documentation to reflect my findings and plan. Sahil Clark M.D. Interventional Cardiology
--- NOTE | 2024-09-08 15:20 | PC.SS ---
SHOP HELPER conducted bedside contact with the patient conduct initial assessment and to discuss discharge planning.? At bedside with patient was spouse, Kvng Charlton .? Spouse provided information for assessment and discharge planning.? Patient resides at home with spouse.? Patient utilizes a walker at home to assist with ambulation. ?Patient does not utilize oxygen at the facility.? Patient requires assistance with the completion of ADL?s.? Spouse assists the patient with completion of ADL?s.? Patient?s medical surrogate decision maker is spouse, Kvng Charlton.? Patient?s PCP is Kaylie Lovell.? The patient does not participate with dialysis.? Discharge plan is for the patient to return home at the time of discharge.? Family will provide transportation on behalf of the patient.? No further intervention required at this time, social worker palliative care will be available to address any further concerns.? Next of Kin: Kvng Charlton D/C Plan: Home
--- NOTE | 2024-09-08 19:41 | PC.NURSE ---
Addendum entered by Oumar Palmer RN 09/08/24 19:46: BERTHA Oseguera verbally notified Dr. Martinez about the patients complaint. Dr. Martinez put an order for chloraseptic. Original Note: Patient c/o having a sore throat. BERTHA Oseguera will notify hospitals.
[2024-09-08] MEDS: PHENOL/NA PHENOLATE (Chloraseptic) SPRY 180 ML BTL PO (20:14)
[2024-09-08] MEDS: INSULIN GLARGINE (Lantus) 5 UNIT/0.05 ML (PER 5 UNITS) 35 UNIT SC (20:15)
--- NOTE | 2024-09-08 21:39 | PD.IMPROG ---
Documentation for date of: 09/08/24 Exam Vital Signs Temp Pulse Resp BP Pulse Ox O2 Del Method 98.7 F 66 18 136/59 H 97 Room Air 09/08/24 16:00 09/08/24 20:59 09/08/24 20:59 09/08/24 16:00 09/08/24 16:00 09/07/24 16:00 Objective Objective Narrative Objective Narrative: Patient evaluated some improvement in renal function hemoglobin hematocrit down to 8.1 and 23.9 Labs 09/08/24 05:50 09/08/24 05:50 Labs: Laboratory Results - last 24 hr 09/08/24 09/08/24 00:30 05:50 WBC 4.9 D RBC 2.36 L Hgb 8.1 L Hct 23.9 L MCV 101 H MCH 34.3 MCHC 33.9 RDW Std Deviation 69.0 H Plt Count 67 L D Neut % (Auto) 58 Lymph % (Auto) 28 Door % (Auto) 8 Eos % (Auto) 5 Baso % (Auto) 0 Neut # (Auto) 2.9 Lymph # (Auto) 1.4 Door # (Auto) 0.4 Eos # (Auto) 0.3 Baso # (Auto) 0.0 Immature Gran # (Auto) 0.02 H Absolute Nucleated RBC 0.00 Immature Gran % 0 Nucleated RBC % 0 Sodium 133 L 132 L Potassium 4.5 5.2 H D Chloride 104 101 Carbon Dioxide 22.4 22.6 Anion Gap 7 8 BUN 37 H 39 H Creatinine 1.7 H 1.9 H Estim Creat Clear Calc 28.8 L 25.8 L eGFR 33 L 29 L BUN/Creatinine Ratio 22 H 21 H Glucose 92 D 166 H D Calculated Osmolality 275 277 Calcium 9.3 9.5 Corrected Calcium 9.9 10.0 Phosphorus 3.4 3.9 Magnesium 1.8 2.4 Total Bilirubin 4.1 H D AST 40 H ALT 20 Alkaline Phosphatase 174 H D Total Protein 6.0 Albumin 3.3 L 3.4 Globulin 2.6 Albumin/Globulin Ratio 1.3 Misc Test Result Platelets confirmed Impressions Impression: Acutely decompensated chronic liver disease cryptogenic cirrhosis mild to moderate aortic stenosis mild to moderate MR Continue current management We will do an upper endoscopy prior to discharge for prophylactic band ligation of the esophageal varices ABG Interpretation ABG results: 06/17/25 11:45 ABG pH 7.38 ABG pCO2 35 ABG pO2 86 ABG HCO3 20 ABG O2 Saturation 98 ABG Base Excess -5 L Assessment & Plan A&P Narrative # End-stage liver disease cryptogenic cirrhosis with advanced portal hypertension anasarca and failure of diuretic therapy with worsening pedal edema and worsening renal function # Hepatorenal syndrome most likely # Hyperosmolar nonketotic state with poor control of diabetes # Hypotension Plan Supportive care Recommend renal consultation patient already sees Dr. De Paz Will consider doing an endoscopy once patient improves prior to discharge to prophylactically band ligate the esophageal varices Would also recommend a cardiology consultation to fully assess the status of the aortic stenosis At the present time with the critical aortic stenosis patient is not a candidate for liver transplant evaluation Thank you once again for the opportunity to participate in care of this patient Time Spent With Patient Time: Total time spent is greater than 50% in coordination of care (as documented) at patient's floor/unit and/or counseling patient:
[2024-09-09] VITALS: BP 127/57; PULSE 65; PULSE 66; RESP 15; TEMP 36.8; O2SAT 93
[2024-09-09] MEDS: ALBUMIN HUMAN 25% IVPB 12.5 GM/50 ML BTL IV ×3 (00:48→12:29)
[2024-09-09 04:00] VITALS: BP 130/59; PULSE 62; PULSE 69; RESP 18; TEMP 36.8; O2SAT 95
[2024-09-09 06:00] VITALS: BMI 28.3
[2024-09-09 06:30] LABS: Basophils % (Auto) 1 % (0-2.5); Eosinophils # (Auto) 0.2 Thou/mm3 (0.0-0.5); Eosinophils % (Auto) 5 % (0-10); Hematocrit 22.9 % (36.0-46.0); Immature Granulocytes % (Auto) 0 % (0-0); Immature Granulocytes Auto 0.01 Thou/mm3 (0.00-0.00); Lymphocytes # (Auto) 1.3 Thou/mm3 (1.0-4.8); Lymphocytes % (Auto) 30 % (10-50); Mean Corpuscular HGB Conc 34.9 g/dl (31.0-37.0); Mean Corpuscular Hemoglobin 34.6 pg (25.0-35.0); Mean Corpuscular Volume 99 fL (80-100); Monocytes # (Auto) 0.4 Thou/mm3 (0.0-0.8); Monocytes % (Auto) 9 % (0-12); Neutrophils # (Auto) 2.3 Thou/mm3 (1.8-7.7); Neutrophils % (Auto) 55 % (37-80); Nucleated Red Blood Cell % 0 /100 WBC (0); Red Blood Count 2.31 Miln/mm3 (4.00-5.20); White Blood Count 4.1 Thou/mm3 (3.6-11.0)
[2024-09-09 06:37] LABS: Platelet Count 62 Thou/mm3 (140-440)
[2024-09-09 06:58] LABS: B-Type Natriuretic Peptide 678 pg/mL (0-100)
[2024-09-09 07:07] LABS: Alanine Aminotransferase 20 U/L (10-49); Albumin, Serum 3.4 gm/dL (3.4-4.8); Albumin/Globulin Ratio 1.7 (1.2-2.2); Alkaline Phosphatase 126 U/L (46-116); Anion Gap 7 (7-16); Aspartate Amino Transferase 39 U/L (0-34); BUN/Creatinine Ratio 28 Ratio (12-20); Blood Urea Nitrogen 39 mg/dL (9-23); Calcium 9.9 mg/dL (8.3-10.6); Calcium (Corrected) 10.4 mg/dL (8.5-10.1); Carbon Dioxide 22.6 mMol/L (20.0-31.0); Chloride 107 mMol/L (98-107); Cholesterol 80 mg/dL (132-200); Creatinine (Component) 1.4 mg/dL (0.6-1.3); Estimated Creatinine Clearance 35.4 mL/min (>60); Glucose 84 mg/dL (74-106); HDL Cholesterol 20 mg/dL (40-60); LDL Cholesterol,Calculated 47 mg/dL (0-130); Osmolality,Calculated 282 (275-295); Sodium 137 mMol/L (136-145); Total Protein 5.4 gm/dL (5.7-8.2); Triglycerides 64 mg/dL (30-150); eGFR 42 See Note
[2024-09-09 07:28] VITALS: PULSE 75; RESP 16; RESP 95
[2024-09-09 07:51] VITALS: BP 152/79; PULSE 69; RESP 16; TEMP 36.2; O2SAT 96
[2024-09-09 08:42] LABS: Slide Review Platelets confirmed
[2024-09-09] MEDS: VIT B12/Vit C/FA (Nephrovite) TABLET 1 TAB PO (09:54)
[2024-09-09 12:00] VITALS: BP 133/71; PULSE 70; RESP 17; TEMP 36.4; O2SAT 98
[2024-09-09] MEDS: INSULIN LISPRO (AdmeLOG) 1 UNIT/0.01 ML UNIT SC ×2 (12:30→16:45)
--- NOTE | 2024-09-09 13:46 | PD.RESPRO ---
Documentation for date of: 09/09/24 Exam Vital Signs Temp Pulse Resp BP Pulse Ox O2 Del Method 97.6 F 70 17 133/71 H 98 Room Air 09/09/24 12:00 09/09/24 12:00 09/09/24 12:00 09/09/24 12:00 09/09/24 12:00 09/09/24 12:00 Objective Labs 09/09/24 05:43 09/09/24 05:43 Labs: Laboratory Results - last 24 hr 09/09/24 05:43 WBC 4.1 RBC 2.31 L Hgb 8.0 L Hct 22.9 L MCV 99 MCH 34.6 MCHC 34.9 RDW Std Deviation 68.0 H Plt Count 62 L Neut % (Auto) 55 Lymph % (Auto) 30 [place] % (Auto) 9 Eos % (Auto) 5 Baso % (Auto) 1 Neut # (Auto) 2.3 Lymph # (Auto) 1.3 [place] # (Auto) 0.4 Eos # (Auto) 0.2 Baso # (Auto) 0.0 Immature Gran # (Auto) 0.01 H Absolute Nucleated RBC 0.00 Immature Gran % 0 Nucleated RBC % 0 Sodium 137 Potassium 5.0 Chloride 107 Carbon Dioxide 22.6 Anion Gap 7 BUN 39 H Creatinine 1.4 H D Estim Creat Clear Calc 35.4 L eGFR 42 L BUN/Creatinine Ratio 28 H Glucose 84 D Calculated Osmolality 282 Calcium 9.9 Corrected Calcium 10.4 H Total Bilirubin 4.0 H AST 39 H ALT 20 Alkaline Phosphatase 126 H D B-Natriuretic Peptide 678 H* Total Protein 5.4 L Albumin 3.4 Globulin 2.0 L Albumin/Globulin Ratio 1.7 Triglycerides 64 Cholesterol 80 L LDL Cholesterol, Calc 47 HDL Cholesterol 20 L Cholesterol/HDL Ratio 4.0 TSH 3.30 Misc Test Result Platelets confirmed ABG Interpretation ABG results: 09/07/24 11:45 ABG pH 7.38 ABG pCO2 35 ABG pO2 86 ABG HCO3 20 ABG O2 Saturation 98 ABG Base Excess -5 L Quality Measures Quality Measures none Assessment & Plan Assessment Current Active Medications: Generic Name Dose Route Start Last Admin Trade Name Freq PRN Reason Stop Dose Admin Acetaminophen 650 mg 09/07/24 16:29 09/07/24 18:05 Acetaminophen 325 Mg Tablet PO 10/07/24 16:28 650 mg Q6HR PRN Administration Fever >100.3 or pain Dextrose 25 ml 09/07/24 13:27 Dextrose 50%-Water Inj 50 Ml Syringe IV [id number] PRN Blood Sugar - Low Albumin Human 12.5 gm in 50 mls @ 100 mls/hr 09/07/24 18:00 09/09/24 12:29 Albuminar-25 Ivpb IV 10/07/24 17:59 100 mls/hr Q6HR [facility] Administration Insulin Glargine 35 unit 09/08/24 21:00 09/08/24 20:15 Insulin Glargine (Lantus) 5 Unit/0.05 Ml (Per 5 Units) SC 10/08/24 20:59 35 unit HS [facility] Administration Insulin Human Lispro 0 unit 09/08/24 07:30 09/09/24 12:30 Insulin Lispro (Admelog) 1 Unit/0.01 Ml Unit SC 10/08/24 07:29 1 unit ACHS [facility] Administration Protocol Vitamin B Complex/Vit C/Folic Acid 1 tab 09/08/24 09:00 09/09/24 09:54 Vit B12/Vit C/Fa (Nephrovite) Tablet PO 10/08/24 08:59 1 tab QDAY [facility] Administration
--- NOTE | 2024-09-09 15:06 | ESPR_ITS ---
Documentation for date of: 09/09/24 Subjective Subjective Interval history: cc: sent GI physician for concern of low hgb Patient is 63-year-old female with past medical history significant for cryptogenic cirrhosis, mild-moderate aortic stenosis, insulin-dependent diabetes mellitus [8.9%] who presented to the emergency room for abnormal labs by GI physician. In the ER, patient noted for hyperosmalar hyperglycemic and admitted to ER. Peripheral edema noted. Patient denied chest pain, palpitations, nausea or vomiting. NO diaphoresis. No dyspnea. No PND. Patient intially admitted on 09/07/2024 directly into the ICU for concern of HHS. Upon questioning patient denied any symptoms including chest pain/pressure, vomiting, diarrhea, poor oral intake, dysuria, sick contacts and recent travel. She was recently hospitalized last month for anasarca and also had an ICU admission at the time requiring vasopressors for hepatorenal and hepatopulmonary syndrome. ED course: BP 153/70, pulse 89, RR 18, temp 98.3 F, SpO2 99% on room air. Labs showed Hb 7.8, WBC 2, PLT 45, BUN 35, CR 1.9, glucose 802, PT 17.4, INR 1.6, T. bili 3.1. Osmolality 330 Chest x-ray showed bilateral pulmonary edema In the ED patient received normal saline 2L IVF bolus insulin 10 units IV x 1. Cardiology Consulted on 09/08/2024 for Aortic Stenosis, known cardiology patient. 09/09/2024: Patient examined at bedside. No overnight events reported for patient. Patient denied chest pain, shortness of breath, or dizziness. Denied Abdominal Pain. Single episode of lower pedal edema. Trace edema noted this morning. Exam Vital Signs Temp Pulse Resp BP Pulse Ox O2 Del Method 97.6 F 70 17 133/71 H 98 Room Air 09/09/24 12:00 09/09/24 12:00 09/09/24 12:00 09/09/24 12:00 09/09/24 12:09/09/24 12:00 Narrative Exam General Appearance: Alert & Oriented X3, well-nourished female who is lying in bed in no acute distress HEENT: Skull symmetrical and atraumatic. Conjunctivae pin and moist. Pupils equal, round, reactive to light and accommodation (PERRL). External ear without lesion or discharge. Straight, nares patient, mucosa pink, no discharge. Cardio: Normal Rate and Rhythm with S1 and S2 heart sounds. No murmurs or extra heart sounds auscultated. No bruits on carotid auscultation. Trace edema noted. Lungs: Symmetric with good expansion. Chest and back non-tender. Breath sounds vesicular without crackles, wheezing or rhonchi Abdomen: Non-tender, some distended but no fluid wave noted, Normal Reactive Bowel Sounds Neuro: Alert, cooperative, oriented to person, place, and time. Speech clear. CN grossly intact. Upper motor strength 5/5 and Lower motor strength 5/5. Sensation intact. Objective Labs 09/09/24 05:43 09/09/24 05:43 Labs: Laboratory Results - last 24 hr 09/09/24 05:43 WBC 4.1 RBC 2.31 L Hgb 8.0 L Hct 22.9 L MCV 99 MCH 34.6 MCHC 34.9 RDW Std Deviation 68.0 H Plt Count 62 L Neut % (Auto) 55 Lymph % (Auto) 30 [place] % (Auto) 9 Eos % (Auto) 5 Baso % (Auto) 1 Neut # (Auto) 2.3 Lymph # (Auto) 1.3 [place] # (Auto) 0.4 Eos # (Auto) 0.2 Baso # (Auto) 0.0 Immature Gran # (Auto) 0.01 H Absolute Nucleated RBC 0.00 Immature Gran % 0 Nucleated RBC % 0 Sodium 137 Potassium 5.0 Chloride 107 Carbon Dioxide 22.6 Anion Gap 7 BUN 39 H Creatinine 1.4 H D Estim Creat Clear Calc 35.4 L eGFR 42 L BUN/Creatinine Ratio 28 H Glucose 84 D Calculated Osmolality 282 Calcium 9.9 Corrected Calcium 10.4 H Total Bilirubin 4.0 H AST 39 H ALT 20 Alkaline Phosphatase 126 H D B-Natriuretic Peptide 678 H* Total Protein 5.4 L Albumin 3.4 Globulin 2.0 L Albumin/Globulin Ratio 1.7 Triglycerides 64 Cholesterol 80 L LDL Cholesterol, Calc 47 HDL Cholesterol 20 L Cholesterol/HDL Ratio 4.0 TSH 3.30 Misc Test Result Platelets confirmed ABG Interpretation ABG results: 09/07/24 11:45 ABG pH 7.38 ABG pCO2 35 ABG pO2 86 ABG HCO3 20 ABG O2 Saturation 98 ABG Base Excess -5 L Quality Measures Quality Measures none Advance care planning discussed with:: patient Assessment & Plan Assessment Current Active Medications: Generic Name Dose Route Start Last Admin Trade Name Kendal PRN Reason Stop Dose Admin Acetaminophen 650 mg 09/07/24 16:29 09/07/24 18:05 Acetaminophen 325 Mg Tablet PO 10/07/24 16:28 650 mg Q6HR PRN Administration Fever >100.3 or pain Dextrose 25 ml 09/07/24 13:27 Dextrose 50%-Water Inj 50 Ml Syringe IV [id number] PRN Blood Sugar - Low Albumin Human 12.5 gm in 50 mls @ 100 mls/hr 09/07/24 18:00 09/09/24 12:29 Albuminar-25 Ivpb IV 10/07/24 17:59 100 mls/hr Q6HR WAYNE Administration Insulin Glargine 35 unit 09/08/24 21:00 09/08/24 20:15 Insulin Glargine (Lantus) 5 Unit/0.05 Ml (Per 5 Units) SC 10/08/24 20:59 35 unit HS WAYNE Administration Insulin Human Lispro 0 unit 09/08/24 07:30 09/09/24 12:30 Insulin Lispro (Admelog) 1 Unit/0.01 Ml Unit SC 10/08/24 07:29 1 unit ACHS WYANE Administration Protocol Vitamin B Complex/Vit C/Folic Acid 1 tab 09/08/24 09:00 09/09/24 09:54 Vit B12/Vit C/Fa (Nephrovite) Tablet PO 10/08/24 08:59 1 tab QDAY WAYNE Administration Plan Patient is 63-year-old female with past medical history significant for cryptogenic cirrhosis, moderate aortic stenosis, insulin-dependent diabetes mellitus [8.9%] who presented to the emergency room for abnormal labs by GI physician who was admitted for hyperglycemia/HHS. Cardiology consulted for mild to moderate aortic stenosis. #Mild to Moderate Aortic Stenosis #Congestive Heart Failure #likely Diastolic Dysfunction CHFpEF 65% Patient is a known patient to cardiology and is pending follow up as an outpatient. Peripheral edema. Patient denied shortness of breath. Denied PND and orthopnea only present when patient abdominal distention secondary to cirrhosis. Patient does have mild to moderate aortic stenosis. CHF can not be ruled out given prominent vascular congestion and previously elevated BNP (08/14/2024) and vascular congestion noted on Cxr. Lowe pedal edema likely in the setting of hepato-renal. Elevated BNP likely in the setting of cardiac stress as there is no active sign of chf exacerbation. Echo (08/15/2024): Normal LVsize and wall thickness. Estimated EF 65%. The RV is normal in size and systolic function. Moderately increased LA volume 39 mL/m?. [id number] MR. Moderate thickening of the AV. Mild to moderate , mean gradient 18 mmHg, JORGE 1 cm?. There is mild TR and PI. Inferior vena cava not well visualized EKG: Sinus rhythm, right bbb QRS 137, QTc 452; Troponin (08/14/2024) <0.02, BNP (09/09/2024) 678 Chest x-ray (09/07/2024): Mild to heart failure, mild to moderate enlargement cardiac countour. Prominent vascular congestion Plan -Strict in and outs -consider daily weight checks -AM BNP, Lipid panel, TSH -K>4, and Mg >2, with caution given IGNACIO At discharge -Decrease dose of spironolactone to 25 mg once daily -Decrease dose of furosemide to 20 mg once daily -Hold home losartan 50 mg once daily -Repeat renal panel bloodwork in 1 week and follow up with GI, Cardiology in 1 week #Acute on Chronic Kidney Injury, improving #CKD stage IIb #Hyperkalemia #Mild Hyponatremia #Hx of Hypertension Patient likely has underlying CKD, givne last GFR >60 was noted in 07/23/2024 as single outlier. During this admission, Patient had worsening Cr at 2.2 which is greater than 0.2 baseline. Likely IGNACIO in the setting of spirinolactone and Lasix. Less likely secondary to hepatorenal syndrome as improvement noted after albumin given. No pressors ever noted. Monitor for intrinsic kidney injury, although patient was been making appropriate urine based on patient's weight. Renal US (09/07/2024): Small kidneys w/ bilateral renal cortical thinning. Moderate bilateral renal parenchymal scar formation Plan -Albumin IV -Strict in and Outs -Holding off ARBs, home medication possibly Losartan -Avoid nephtroxins -renally dose medication -Nephrology following #Hyperglycemia, improved #Diabetes Mellitus, Type 2 insulin dependent #Hyperosmolar hyperglycemia, resolved Patient has a past medical history of diabetes mellitus who was previously discharged on Metformin 1000 mg BID and Glargine 10 units subq. Patient was admitted directly into the icu on 09/07/2024 secondary to HHS. Plan -by primary team -Glargine 35 units HS -Lispor 3 units TID -Sliding Sclae -Patient would likely benefit from CGM -continue to monitor fasting blood glucose #Decompensated Cirrhosis w/ ascites secondary to cryptogenic #Thrombocytopenia #Hyperbirubinemia #Pancytopnea, resolved Pateint has a past medical history of decompensated liver cirrhosis that developed gradually after , likely in the setting COLE. Denied Alcohol use. Previous Hep panel negaitve. S/P one paracentesis. Child Marshall Score 9 MELD NA 7-10% Plan -Resume at lower dose given IGNACIO, consider Lasix 20 mg qday & Spirnolactone 25 mg qday -No Lactulose or Rifaximin noted. -Patient would benefit from liver biopsy and outpatient follow up GI #Macrocytic Anemia Macrocytic anemia likely inthe setting of liver failure vs chronic disease vs iron deficiency. Continue to monitor, may benefit from EPO. Iron panel shows: Iron of 23, TIBC 179, iron saturation 12%, ferritin 128 Plan -continue to monitor Health Maintenance: Disp: Pt is currently admitted to floors for further management of HHS, cardiology consulted for history of Moderate Aortic stenosis. FEN: low carb consistent DVT: on subQ heparin Code: Full Code - The patient's plan was discussed with attending Dr. Eduardo Mcnally MD PGY1 Internal Medicine Attending Provider Attestation/Addendum I have personally seen and examined the patient separately on the above date of service and discussed the plan of care with the resident. I reviewed the resident Dr. Shobha Mcnally consultation progress note and agree with the resident findings and plan in the note above and have also edited the documentation to reflect my findings and plan. Sahil Clark M.D. Interventional Cardiology
[2024-09-09 16:00] VITALS: BP 132/55; PULSE 78; RESP 17; TEMP 36.2; O2SAT 98
--- NOTE | 2024-09-09 16:15 | PD.RESPRO ---
Documentation for date of: 09/09/24 Subjective Subjective Interval history: The patient is a 63-year-old female with a past medical history of cryptogenic cirrhosis, diabetes mellitus, anemia, who presented to the ER with shortness of breath and generalized swelling. The patient was directed to go to the ER after being evaluated by glass rolling machine operator Dr. Pérez in his office, noted to have worsening renal function and volume overload. Per patient's , patient has had cryptogenic cirrhosis for past many years, has not been evaluated for liver transplant yet, was being managed for cirrhosis, started on diuretics, Lasix and spironolactone, which led to worsening renal function, was directed to discontinue diuretics which improved renal function but led to generalized edema. Of note patient had recently been admitted to the hospital for SBP following paracentesis almost 2 weeks ago. Currently patient denies any fever or abdominal pain, or chest pain. Comfortable at rest, no shortness of breath on laying down, but reported worsening dyspnea on exertion. Denied nausea, vomiting or diarrhea or GI bleed. 09/08/2024 is evaluated at bedside,Reported no acute complaints, noted improvement in patient's labs including hemoglobin and WBC count and platelets, slight improvement renal function BUN 37, creatinine 1.7, will continue with albumin challenge, improvement in patient's glucose, 92 on blood draw this a.m. recommend diabetic education and CGM monitoring at home for adequate glycemic control and preventing nephrological complications. 09/09/2024, patient is evaluated bedside, reports no acute complaints, urine output 1500 cc, net negative -400 mL overnight. Sodium 137, potassium 5.0 noted improvement in patient's renal function, BUN 39, creatinine 1.4,, EGFR improved to 42. Persistent hyperbilirubinemia. Showed improvement to albumin challenge, less likely hepatorenal syndrome. Likely prerenal etiology following diuretic use. Will recommend slowly re introducing low-dose diuretics upon discharge. Also recommend diabetic education, insulin use at home and CGM monitoring to prevent further renal complications. Exam Vital Signs Temp Pulse Resp BP Pulse Ox O2 Del Method 97.6 F 70 17 133/71 H 98 Room Air 09/09/24 12:09/09/24 12:00 09/09/24 12:00 09/09/24 12:00 09/09/24 12:09/09/24 12:00 Narrative Exam Constitutional Alert, oriented x 3 and comfortable. Elderly female, jaundiced, scleral icterus. HEENT Vision grossly intact. Patent nares. Trachea midline Respiratory Chest normal on inspection and clear auscultation bilaterally, decreased air entry at bases Cardiovascular S1 and S2 audible, RRR. 3/6 ejection systolic murmur at right sternal border with radiation to bilateral carotids. JVD not assessed Abdominal Distended, abdominal striae, obese. BS+ Genitourinary No bladder tenderness, no flank pain. Normal to palpation Musculoskeletal Extremities tone within normal limits. 2+ lower extremity edema up to knees bilaterally Neurological CN II - XII grossly intact. Extremity motor and sensation grossly intact. Skin Warm, dry and intact. No apparent lesions. Psychiatric Patient has good affect, is cooperative Objective Labs 09/09/24 05:43 09/09/24 05:43 Labs: Laboratory Results - last 24 hr 09/09/24 05:43 WBC 4.1 RBC 2.31 L Hgb 8.0 L Hct 22.9 L MCV 99 MCH 34.6 MCHC 34.9 RDW Std Deviation 68.0 H Plt Count 62 L Neut % (Auto) 55 Lymph % (Auto) 30 [place] % (Auto) 9 Eos % (Auto) 5 Baso % (Auto) 1 Neut # (Auto) 2.3 Lymph # (Auto) 1.3 [place] # (Auto) 0.4 Eos # (Auto) 0.2 Baso # (Auto) 0.0 Immature Gran # (Auto) 0.01 H Absolute Nucleated RBC 0.00 Immature Gran % 0 Nucleated RBC % 0 Sodium 137 Potassium 5.0 Chloride 107 Carbon Dioxide 22.6 Anion Gap 7 BUN 39 H Creatinine 1.4 H D Estim Creat Clear Calc 35.4 L eGFR 42 L BUN/Creatinine Ratio 28 H Glucose 84 D Calculated Osmolality 282 Calcium 9.9 Corrected Calcium 10.4 H Total Bilirubin 4.0 H AST 39 H ALT 20 Alkaline Phosphatase 126 H D B-Natriuretic Peptide 678 H* Total Protein 5.4 L Albumin 3.4 Globulin 2.0 L Albumin/Globulin Ratio 1.7 Triglycerides 64 Cholesterol 80 L LDL Cholesterol, Calc 47 HDL Cholesterol 20 L Cholesterol/HDL Ratio 4.0 TSH 3.30 Misc Test Result Platelets confirmed ABG Interpretation ABG results: 09/07/24 11:45 ABG pH 7.38 ABG pCO2 35 ABG pO2 86 ABG HCO3 20 ABG O2 Saturation 98 ABG Base Excess -5 L Quality Measures Quality Measures none Advance care planning discussed with:: patient Assessment & Plan Assessment Current Active Medications: Generic Name Dose Route Start Last Admin Trade Name Kendal PRN Reason Stop Dose Admin Acetaminophen 650 mg 09/07/24 16:29 09/07/24 18:05 Acetaminophen 325 Mg Tablet PO 10/07/24 16:28 650 mg Q6HR PRN Administration Fever >100.3 or pain Dextrose 25 ml 09/07/24 13:27 Dextrose 50%-Water Inj 50 Ml Syringe IV [id number] PRN Blood Sugar - Low Albumin Human 12.5 gm in 50 mls @ 100 mls/hr 09/07/24 18:00 09/09/24 12:29 Albuminar-25 Ivpb IV 10/07/24 17:59 100 mls/hr Q6HR WAYNE Administration Insulin Glargine 35 unit 09/08/24 21:00 09/08/24 20:15 Insulin Glargine (Lantus) 5 Unit/0.05 Ml (Per 5 Units) SC 10/08/24 20:59 35 unit HS WAYNE Administration Insulin Human Lispro 0 unit 09/08/24 07:30 09/09/24 12:30 Insulin Lispro (Admelog) 1 Unit/0.01 Ml Unit SC 10/08/24 07:29 1 unit ACHS WAYNE Administration Protocol Vitamin B Complex/Vit C/Folic Acid 1 tab 09/08/24 09:00 09/09/24 09:54 Vit B12/Vit C/Fa (Nephrovite) Tablet PO 10/08/24 08:59 1 tab QDAY WAYNE Administration Plan The patient is a 63-year-old female with a past medical history of cryptogenic cirrhosis, diabetes mellitus, anemia, who presented to the ER with shortness of breath and generalized swelling. The patient was directed to go to the ER after being evaluated by glass rolling machine operator Dr. Pérez in his office, noted to have worsening renal function and volume overload. Per patient's , patient has had cryptogenic cirrhosis for past many years, has not been evaluated for liver transplant yet, was being managed for cirrhosis, started on diuretics, Lasix and spironolactone, which led to worsening renal function, was directed to discontinue diuretics which improved renal function but led to generalized edema. Of note patient had recently been admitted to the hospital for SBP following paracentesis almost 2 weeks ago. Currently patient denies any fever or abdominal pain, or chest pain. Comfortable at rest, no shortness of breath on laying down, but reported worsening dyspnea on exertion. Denied nausea, vomiting or diarrhea or GI bleed. In the ER, patient was found to have labs consistent with anemia, leukopenia, thrombocytopenia, as well as hyponatremia, mild hyperkalemia, IGNACIO, and hyperglycemia. Osmolarity 300, blood glucose 802, patient was started on insulin drip for hyperglycemic hyperosmolar syndrome the patient was admitted to ICU for insulin drip and further management. Nephrology was consulted for acute kidney injury/CKD. EKG showed right bundle branch block. #Acute on chronic kidney injury, likely prerenal # Rule out hepatorenal syndrome. Patient seems to have underlying CKD, stage IIb, now presented with IGNACIO on CKD, following Lasix and spironolactone use, creatinine worsened to 2.8, in outpatient setting, now improved to creatinine 1.9 following discontinuation of diuretics, but presented with worsening anasarca. ? IV albumin 25 g every 6 hours, will give albumin challenge 100 g to assess for improvement in renal function. Improvement in renal function after albumin challenge ? Strict urine output monitoring ? Ultrasound bilateral kidneys ? Avoid nephrotoxic drugs, renal dosing ?Noted improvement in patient's renal function, BUN 39, creatinine 1.4,, EGFR improved to 42. Showed improvement to albumin challenge, less likely hepatorenal syndrome. Likely prerenal etiology following diuretic use. Will recommend slowly re introducing low-dose diuretics upon discharge. Also recommend diabetic education, insulin use at home and CGM monitoring to prevent further renal complications. #Hyperglycemia, possible HHS Fingerstick glucose as high as 1000, glucose on blood draw 802, patient was prescribed insulin 4 weeks ago, per they have been taking insulin every day, would likely benefit from diabetic education and insulin administration education. ? Insulin GTT, management per primary team #Pancytopenia #History of cirrhosis, decompensated #Hyponatremia #Hyperkalemia ? Management per primary team Plan of care discussed with attending Dr. Zandra Mcleod PGY2 Attending Provider Attestation/Addendum Patient seen and examined with resident physician Dr. Mcleod. Note reviewed, agree with findings and recommendations. Patient with significant elevation in blood sugars-802. patient has a liver cirrhosis and is under the care of Dr. Pérez. Creatinine seems to be better. Renal larry stable for discharge.
--- NOTE | 2024-09-09 17:50 | ESDS_ITS ---
<Statement entered by Biju Ross MD - 09/14/24 08:56> I reviewed above note and agree with findings and plans. I have also personally examined the patient with medicine team and went over assessment and plan with medical team including marketing operations intern and resident physician. Planned Discharge Date 09/09/24 DS: Providers Provider Date of admission: 09/07/24 13:25 Primary care physician: Kaylie Montes MD Admitting Provider: Dougie Izaguirre MD Attending Provider on Admission: Biju Ross MD Consults: 09/07/24 11:46 Consult to Gastroenterology Stat Comment: Consulting Provider: Jarad Pérze Consult to Nephrology Stat Comment: Consulting Provider: Chapin De Paz 09/07/24 13:27 Referral Registered Dietitian Routine Comment: 09/08/24 09:51 Consult to Cardiology Routine Comment: Moderate Consulting Provider: Sahil Clark Attending Provider on DC: Ita Paz MD Discharging Provider: Ita Paz MD DS: Diagnosis Problem List Completed Was Problem List Reviewed/Reconciled?: Yes Hospital Course Hospital Course Hospital course: Ms. Charlton is a 63-year-old female with past medical history significant for insulin-dependent type 2 diabetes, cryptogenic decompensated cirrhosis, HFpEF (Estimated EF 65%) , moderate aortic stenosis and history of fatty liver disease of presented to [facility] ED on 09/07/2024 after found to have blood glucose of 800 during routine follow-up exam with her primary care. Patient was admitted to the ICU for insulin drip and once blood glucose were within normal limits patient was transitioned to subcutaneous insulin on 09/08/2024 and downgraded to telemetry for continuous monitoring. Due to echo findings of aortic stenosis which was likely moderate to severe cardiology was consulted for further recommendations. During the hospital admission patient also had IGNACIO on CKD for which nephrology team was consulted, findings were consistent with possible hepatorenal syndrome therefore patient was started on IV albumin and bilateral kidney ultrasound was obtained and findings were consistent of small kidneys with bilateral renal cortical thinning and moderate bilateral renal parenchymal scar formation. Patient's blood glucose is well-controlled with subcutaneous insulin and Lantus. Vitals are stable and patient is hemodynamically stable creatinine is at baseline patient is cleared to be discharged home to self-care. Patient is advised to follow-up with trading analyst Dr. De Paz outpatient as well as follow-up with marine photographer Dr. Clark outpatient. Discharge Recommendations -Follow up with PCP within 1 week of discharge -Follow up with Cardiology Dr. Clark within 2-3 weeks of discharge -Follow up with Gastroenterology Dr. Pérez as scheduled -Give 35 units of insulin Semglee (long-acting insulin) once a day -Use the FreeStyle Nely sensor to carefully monitor blood glucose and maintain target range of 70-180 Please change the following medications due to acute kidney injury: -Decrease dose of spironolactone to 25 mg once daily -Decrease dose of furosemide to 20 mg once daily -Hold home losartan 50 mg once daily -Repeat renal panel bloodwork in 1 week -Continue rest of medications as previously prescribed -Return to the ED or call EMS if symptoms return and/or worsen. Hospitalization Diagnosis #Hyperosmolar hyperglycemia-resolved #Insulin-dependent type 2 diabetes #Acute kidney injury #Possible hepatorenal syndrome #Decompensated liver cirrhosis with ascites #Thrombocytopenia #Coagulopathy #History of acute fatty liver of #HFpEF Estimated EF 65% #Moderate aortic stenosis Assessment and plan discussed with my attending physician Dr. Cody Paz (PGY-1)- Internal medicine resident Time Spent with Patient Time attestation: Total time spent providing and/or coordinating discharge services: Time spent: Greater than 30 minutes Exam Vital Signs Temp Pulse Resp BP Pulse Ox O2 Del Method 97.2 F 78 17 132/55 H 98 Room Air 09/09/24 16:00 09/09/24 16:00 09/09/24 16:00 09/09/24 16:00 09/09/24 16:00 09/09/24 16:00 Narrative Exam GENERAL: A&Ox3 . Awake, Not in acute distress NEURO: no focal neurological deficits HEENT: Atraumatic, Normocephalic. mucous membranes moist. Eyes open, symmetrical, & clear HEART: systolic murmur at right sternal border heard LUNGS: Clear to auscultation with no wheezing or crackles. ABDOMEN: soft, non-distended obese abdomen, non-tender, bowel sounds heard, no guarding or rebound tenderness SKIN: No Rash or ecchymoses EXTREMITIES: No edema, tenderness, able to move all 4 extremities, pedal pulses palpated Discharge Plan Plan Patient Disposition: HOME (Self Care) Patient condition on transfer: Stable Care Plan Goals: Discharge Recommendations: -Follow up with PCP within 1 week of discharge -Follow up with Cardiology Dr. Clark within 2-3 weeks of discharge -Follow up with Gastroenterology Dr. Pérez as scheduled -Give 35 units of insulin Semglee (long-acting insulin) once a day -Use the FreeStyle Nely sensor to carefully monitor blood glucose and maintain target range of 70-180 Please change the following medications due to acute kidney injury: -Decrease dose of spironolactone to 25 mg once daily -Decrease dose of furosemide to 20 mg once daily -Hold home losartan 50 mg once daily -Repeat renal panel bloodwork in 1 week -Continue rest of medications as previously prescribed -Return to the ED or call EMS if symptoms return and/or worsen. Prescriptions/Referrals Prescriptions/Med Rec: New spironolactone 25 mg tablet 25 mg PO QDAY 30 Days Qty: 30 0RF furosemide [Lasix] 20 mg tablet 20 mg PO QAM 30 Days Qty: 30 0RF (DME) FreeStyle Nely 3 Plus Sensor Device See Rx Instructions .Route Qty: 2 3RF Rx Instructions: As directed (DME) FreeStyle Nely 3 [place] Misc See Rx Instructions .Route Qty: 1 0RF Rx Instructions: As directed insulin glargine-yfgn [Semglee(insulin glarg-yfgn)Pen] 100 unit/mL (3 mL) insulin pen 35 unit subcut QDAY Qty: 15 0RF Continued simvastatin [Zocor] 10 MG tablet 10 mg PO HS Qty: 0 hydrocodone-ibuprofen 7.5-200 mg Tablet 1 tab PO TID PRN (Reason: Pain) albuterol sulfate 90 mcg/actuation HFA aerosol inhaler 2 puff INHALATION .COMPLEX Rx Instructions: 2 puffs inhaled daily prn; folic acid 1 mg tablet 1 mg PO QDAY carvedilol 3.125 mg Tablet 3.125 mg PO BIDWM 30 Days Qty: 60 0RF ferrous sulfate [FeroSul] 325 mg (65 mg iron) tablet 325 mg PO BID 30 Days Qty: 60 0RF Held losartan 50 mg tablet 50 mg PO QDAY Hold Instructions: Resume on 09/16/24. Hold until follow up with PCP Patient Comments: TAKE 1 TABLET BY MOUTH ONCE DAILY Discontinued insulin glargine [Lantus Solostar U-100 Insulin] 100 unit/mL (3 mL) insulin pen 10 unit SUBCUT QDAY furosemide 40 mg tablet 40 mg PO .AM Patient Comments: TAKE 1 TABLET BY MOUTH IN THE MORNING insulin glargine-yfgn [Semglee(insulin glarg-yfgn)Pen] 100 unit/mL (3 mL) insulin pen 10 unit SUBCUT DAILY Patient Comments: INJECT 10 UNITS SUBCUTANEOUSLY ONCE DAILY spironolactone 50 mg tablet 50 mg PO .am 30 Days Qty: 30 0RF Referrals: Kaylie Montes MD [Primary Care Provider] - Patient/Caregiver Discharge Instructions Meds to Beds: No Discharge Activity: activity as tolerated Education Materials: Diabetes: Ways to Take Medicine, Diabetic Ketoacidosis Print Language: Kyrgyz Stand Alone Forms: Daisha Award Info., Patient Portal Info Letter Discharge Order Discharge Orders: Discharge (Routine); Ordered 09/09/24 Ordered By: Yusra Whatley Quality Discharge Quality Measures VTE prophylaxis
== END 2024-09-09 17:30 | disposition home or self-care (01) | DRG 637 ==
LOC: SERX 12:28 → SERHOLD 13:40 → S2SX 15:28 → S3NX 09-08 17:19
PROVIDERS: Admitting Provider Internal Medicine; Emergency Provider Family Medicine; PCP Internal Medicine; Visit Provider Internal Medicine
DX: E11.65 Type 2 diabetes mellitus with hyperglycemia (principal); K76.7 Hepatorenal syndrome; D61.818 Other pancytopenia; E87.1 Hypo-osmolality and hyponatremia; N17.9 Acute kidney failure, unspecified; I13.0 Hypertensive heart and chronic kidney disease with heart failure and stage 1 through stage 4 chronic kidney disease, or unspecified chronic kidney disease; I50.32 Chronic diastolic (congestive) heart failure; K76.6 Portal hypertension; R18.8 Other ascites; D68.9 Coagulation defect, unspecified; D63.1 Anemia in chronic kidney disease; E11.22 Type 2 diabetes mellitus with diabetic chronic kidney disease; K74.69 Other cirrhosis of liver; I95.9 Hypotension, unspecified; I35.0 Nonrheumatic aortic (valve) stenosis; N27.1 Small kidney, bilateral; N18.32 Chronic kidney disease, stage 3b; K72.10 Chronic hepatic failure without coma; I45.10 Unspecified right bundle-branch block; E87.5 Hyperkalemia; Z87.891 Personal history of nicotine dependence; Z79.4 Long term (current) use of insulin; Z79.899 Other long term (current) drug therapy
CPT/HCPCS: 36415; 36600; 71045; 76770; 80053; 80061; 80069; 81001; 82010; 82803; 83605; 83735; 83880; 84100; 84443; 85025; 85610; 85730; 86850; 86900; 86901; 87040; 87081; 93005; 93225; 96360; 96361; 96365; 96366; 99291; 99292; J1815; J3475; J3480; J7030; J7120; P9047; A9270

== ENCOUNTER → 2024-10-28 | Outpatient (CLI) | payer OTHER, SELFPAY ==
[2024-10-28 10:44] LABS: Collection Type, Urine Clean Catch
[2024-10-28 10:56] LABS: Basophils # (Auto) 0.0 Thou/mm3 (0.0-0.2); Basophils % (Auto) 1 % (0-2.5); Eosinophils # (Auto) 0.1 Thou/mm3 (0.0-0.5); Eosinophils % (Auto) 6 % (0-10); Hematocrit 25.1 % (36.0-46.0); Immature Granulocytes Auto 0.01 Thou/mm3 (0.00-0.00); Lymphocytes # (Auto) 0.8 Thou/mm3 (1.0-4.8); Lymphocytes % (Auto) 36 % (10-50); Mean Corpuscular HGB Conc 33.5 g/dl (31.0-37.0); Mean Corpuscular Hemoglobin 33.5 pg (25.0-35.0); Mean Corpuscular Volume 100 fL (80-100); Monocytes # (Auto) 0.2 Thou/mm3 (0.0-0.8); Monocytes % (Auto) 9 % (0-12); Neutrophils # (Auto) 1.0 Thou/mm3 (1.8-7.7); Neutrophils % (Auto) 48 % (37-80); Nucleated Red Blood Cell # 0.00 Thou/mm3 (0.00-0.00); Nucleated Red Blood Cell % 0 /100 WBC (0); RDW Standard Deviation 58.4 fL (36.4-46.3); Red Blood Count 2.51 Miln/mm3 (4.00-5.20)
[2024-10-28 11:02] LABS: Hemoglobin 8.4 g/dL (12.0-16.0); Platelet Count 40 Thou/mm3 (140-440); White Blood Count 2.1 Thou/mm3 (3.6-11.0)
[2024-10-28 11:08] LABS: Glucose Estimated Average 123 mg/dL (80-131); Hemoglobin A1C 5.9 % Hgb (4.8-6.0)
[2024-10-28 11:20] LABS: Slide Review Platelets confirmed
[2024-10-28 11:42] LABS: Creatinine MALB Rnd Ur 19 mg/dL (30-125); Microalbumin Creat Ratio 184 mg/gCrea (<30); Microalbumin, Random Urine 35 mg/L (0-300)
[2024-10-28 11:43] LABS: Alanine Aminotransferase 17 U/L (10-49); Albumin, Serum 3.0 gm/dL (3.4-4.8); Albumin/Globulin Ratio 1.1 (1.2-2.2); Alkaline Phosphatase 144 U/L (46-116); Anion Gap 9 (7-16); Aspartate Amino Transferase 45 U/L (0-34); BUN/Creatinine Ratio 18 Ratio (12-20); Bilirubin,Total 3.6 mg/dL (0.3-1.2); Blood Urea Nitrogen 21 mg/dL (9-23); Calcium 8.8 mg/dL (8.3-10.6); Calcium (Corrected) 9.6 mg/dL (8.5-10.1); Carbon Dioxide 24.2 mMol/L (20.0-31.0); Chloride 108 mMol/L (98-107); Creatinine (Component) 1.2 mg/dL (0.6-1.3); Globulin 2.8 gm/dL (2.3-3.5); Glucose 232 mg/dL (74-106); Osmolality,Calculated 291 (275-295); Potassium 4.9 mMol/L (3.4-5.1); Sodium 141 mMol/L (136-145); Total Protein 5.8 gm/dL (5.7-8.2); eGFR 50 See Note
[2024-10-28 13:12] LABS: Bilirubin,Urine Negative (Negative); Blood,Urine Negative (Negative); Clarity,Urine Clear (Clear/Hazy); Color,Urine Lt-Yellow (Lt Yel-Yel); Glucose, Urine Negative (Negative); Hyaline Casts,Urine < 1 /hpf (0-1); Ketones,Urine Negative (Negative); Leukocyte Esterase,Urine Negative (Negative); Nitrite,Urine Negative (Negative); PH,Urine 6.5 (5.0-7.0); Protein,Urine Negative (Neg - Trace); RBC,Urine 1 /hpf (0-3); Specific Gravity,Urine 1.008 (1.001-1.035); Squamous Epithelial Cell,Urine 1 /hpf (0-5); Urobilinogen,Urine Negative mg/dL (0.0-1.0); WBC,Urine 1 /hpf (0-5)
== END | disposition home or self-care (01) ==
LOC: COPL 10:12
PROVIDERS: PCP Internal Medicine; Referring Provider Internal Medicine; Visit Provider Internal Medicine
DX: I12.9 Hypertensive chronic kidney disease with stage 1 through stage 4 chronic kidney disease, or unspecified chronic kidney disease (principal); E11.22 Type 2 diabetes mellitus with diabetic chronic kidney disease; N18.30 Chronic kidney disease, stage 3 unspecified; E78.5 Hyperlipidemia, unspecified
CPT/HCPCS: 36415; 80053; 81001; 82043; 82570; 83036; 85025

== ENCOUNTER 2024-11-16 06:39 | Day surgery (SDC) | payer OTHER, SELFPAY ==
[2024-11-12 13:27] VITALS: BMI 24.9
--- NOTE | 2024-11-15 07:00 | EKG_ITS ---
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
[2024-11-15 11:55] LABS: Basophils # (Auto) 0.0 Thou/mm3 (0.0-0.2); Basophils % (Auto) 1 % (0-2.5); Eosinophils # (Auto) 0.1 Thou/mm3 (0.0-0.5); Eosinophils % (Auto) 4 % (0-10); Hematocrit 23.8 % (36.0-46.0); Immature Granulocytes Auto 0.00 Thou/mm3 (0.00-0.00); Lymphocytes # (Auto) 0.5 Thou/mm3 (1.0-4.8); Lymphocytes % (Auto) 28 % (10-50); Mean Corpuscular HGB Conc 34.9 g/dl (31.0-37.0); Mean Corpuscular Hemoglobin 34.9 pg (25.0-35.0); Mean Corpuscular Volume 100 fL (80-100); Monocytes # (Auto) 0.2 Thou/mm3 (0.0-0.8); Monocytes % (Auto) 9 % (0-12); Neutrophils # (Auto) 1.1 Thou/mm3 (1.8-7.7); Neutrophils % (Auto) 58 % (37-80); Nucleated Red Blood Cell # 0.00 Thou/mm3 (0.00-0.00); Nucleated Red Blood Cell % 0 /100 WBC (0); RDW Standard Deviation 60.3 fL (36.4-46.3); Red Blood Count 2.38 Miln/mm3 (4.00-5.20); White Blood Count 1.9 Thou/mm3 (3.6-11.0)
[2024-11-15 11:57] LABS: Hemoglobin 8.3 g/dL (12.0-16.0); Platelet Count 40 Thou/mm3 (140-440)
[2024-11-15 12:07] LABS: INR 1.5 (0.9-1.3); Partial Thromboplastin Time 33.6 Seconds (22.0-36.0); Prothrombin Time 15.7 Seconds (9.0-12.2)
[2024-11-15 12:10] LABS: Anion Gap 10 (7-16); BUN/Creatinine Ratio 26 Ratio (12-20); Blood Urea Nitrogen 31 mg/dL (9-23); Calcium 8.7 mg/dL (8.3-10.6); Carbon Dioxide 25.4 mMol/L (20.0-31.0); Chloride 101 mMol/L (98-107); Creatinine (Component) 1.2 mg/dL (0.6-1.3); Estimated Creatinine Clearance 43.6 mL/min (>60); Glucose 270 mg/dL (74-106); Osmolality,Calculated 288 (275-295); Potassium 4.0 mMol/L (3.4-5.1); Sodium 136 mMol/L (136-145); eGFR 50 See Note
[2024-11-15 14:32] LABS: Slide Review Platelets confirmed
[2024-11-16] VITALS (17 sets, daily range): BP systolic 111–139; BP diastolic 50–68; PULSE 55–62; RESP 14–25; TEMP 36.3–36.7; O2SAT 92–99; BMI 27.3
--- NOTE | 2024-11-16 16:13 | ESOP_ITS ---
Cardiac Cath Procedure Procedure Name Date of procedure: 11/16/24 OPHTHALMIC SURGEON: Sahil Clark MD PROCEDURE PERFORMED: 1. Left heart and right heart cardiac catheterization including right, left coronary angiograms and left ventriculogram - CPT 98019 2. Ultrasound-guided access of the right radial artery and right femoral vein - CPT 49173 3. Conscious sedation for 30 minutes - CPT 29470 4. Abdominal aortogram. - CPT 28387. 5. Bilateral lower extremity run off. - CPT 77440. Procedure Narrative HISTORY AND INDICATIONS: Patient is 63-year-old female with past medical history significant decompensated cirrhosis w/ ascites, likely secondary to COLE, moderate aortic stenosis, CHF HFpEF 65%, and insulin- dependent diabetes mellitus. Patient had ischemic cardiac work up as part of preop for aortic valve replacement. Patient was recommended to have a cardiac catheterization. Patient was brought in for an elective cardiac catheterization. Patient is a candidate for left and right coronary angiograms hence schedule for cardiac catheterization today. Discussed with patient risks, benefits and alternatives of performing left with coronary angiogram including the risks of bleeding, heart rate, stroke and with the procedure. Patient understands the risks and is willing to undergo the procedure. Consent provided for the same. H&P updated and consent was signed prior to the procedure DESCRIPTION OF PROCEDURE: The patient was brought to the cardiac catheterization lab and all asceptic precautions were followed. Patient was given 1 Mg of Versed and 50 mcg of fentanyl for moderate conscious sedation. 2 mL of lidocaine was given in the right wrist. The right radial artery was accessed via the ultrasound guidance as well as micropuncture technique. A 6 Bahamian glide sheath was introduced. Patient already had right antecubital vein access placed. Right antecubital vein access was cleaned appropriately and all aseptic precautions was followed and exchanged into a micropuncture catheter with the help of a micropuncture wire and then introduced and a 7 Bahamian sheath into the antecubital vein access with the help of a J-wire. A 7 [place]amian [place] catheter was used to direct catheter into the right atrium with inflated balloon. A 10 ml of lidocaine was then injected in the right femoral area and right femoral vein vein was accessed with ultrasound guidance and micropuncture technique. A 7 danish femoral sheath was used. A 7 [place]amian Mill[place]-Rachael catheter was used with a [place] wire to direct into the right atrium with inflated balloon. Serial measurements of right atrium, right ventricle, pulmonary artery and pulmonary capillary wedge were taken severely with normal respiration as well as at end expiration as noted below. We then used a 6 Bahamian TIG 4 catheter to perform the left and right coronary angiogram as well as a left ventriculogram which showed the following findings. LHC findings: 1. Left ventricular ejection fraction was 60-65% without any regional wall motion abnormalities. LVEDP was normal at 21 mmHg. There was significant transvalvular aortic gradient. 2. Right dominant circulation left main artery is a large-caliber vessel without any significant stenosis. 3. LAD is a large sized artery with 30-40% stenosis of mid segment. Medium size diagonal and does not show any significant disease. mild 20% disease of ostial diagonal 1 4. LCx is a large sized artery with 20-30% stenosis of proximal segment. Medium OM1 and small OM2 without any significant disease. 5. RCA is a large artery with nedium RPDA and RPL without any significant disease. RHC findings: Mean right atrial pressure was 12 mmHg. Right atrial pressure was 20/15 mmHg. Pulmonary artery pressure was 38/14 mmHg with a mean of 24 mmHg. Mean pulmonary capillary wedge pressure was 18 mmHg. TPG was 6 mmHg Pulmonary artery PA saturation was 74.4%.? Arterial saturation was 93.8% on room air. Cardiac output was 6.88 L/min and cardiac index was normal at 4.03 L/min/m? A radial band was used to achieve the hemostasis of the right radial artery access and manual hemostasis for the right antecubital vein. Patient will be monitored in the cardiac weaving inspector for the next 2 to 3 hours and will be sent to the telemetry floor. Patient recommended to follow-up with me in the office within 7 days after discharge. Complications: None Specimens: None Blood loss: Estimated 5 ml Summary/findings: 1. LHC showed mild CAD with 30-40% stenosis of mid LAD and 20-30% stenosis of proximal LCx. Rest of coronaries without any angiographically significant obstruction and few luminal irregularities. 2. LVEF was 60-65% 3. LVEDP severely elevated at 21 mm hg. There was significant transvalvular aortic gradient. 4. Normal right heart pressures with mean RA of 12 mm hg, mean PA of 24 mmhg and mean PCWP at 18 mm hg. Recommendations: 1. Recommend aggressive medical management and aggressive risk factor modification. 2. Patient recommended not to lift more than 5 lbs for the next 7-10 days and follow up with me in my office in 7 days. Sahil Clark MD Interventional Cardiology.
[2024-11-23 09:08] LABS: O2 Saturation (Cath Lab) 94 % (91-98); Puncture Site Aortic
== END 2024-11-16 15:05 | disposition home or self-care (01) ==
PROVIDERS: PCP Internal Medicine; Referring Provider Internal Medicine Cardiovascular Disease; Visit Provider Internal Medicine Cardiovascular Disease
PROC: (CPT 93460; principal; 2024-11-16 10:00)
DX: I25.10 Atherosclerotic heart disease of native coronary artery without angina pectoris (principal); I35.0 Nonrheumatic aortic (valve) stenosis; Z01.810 Encounter for preprocedural cardiovascular examination; R00.2 Palpitations; I42.0 Dilated cardiomyopathy; I10 Essential (primary) hypertension; K74.69 Other cirrhosis of liver; R18.8 Other ascites; Z95.2 Presence of prosthetic heart valve
CPT/HCPCS: 93460; 36415; 75625; 75710; 80048; 82810; 85025; 85347; 85610; 85730; 86850; 86900; 86901; 86965; 93005; 99152; 99153; A4649; C1726; C1769; C1887; C1894; J0461; J1643; J2250; J2312; J2371; J3010; J3490; P9035; Q9967; C1725

== ENCOUNTER → 2024-11-24 | Outpatient (CLI) | payer OTHER, SELFPAY ==
[2024-11-24 16:19] LABS: Basophils # (Auto) 0.0 Thou/mm3 (0.0-0.2); Basophils % (Auto) 1 % (0-2.5); Eosinophils # (Auto) 0.1 Thou/mm3 (0.0-0.5); Eosinophils % (Auto) 3 % (0-10); Hematocrit 27.3 % (36.0-46.0); Hemoglobin 8.9 g/dL (12.0-16.0); Immature Granulocytes Auto 0.01 Thou/mm3 (0.00-0.00); Immature Reticulocyte Fraction 7.8 % (3.0-15.9); Lymphocytes # (Auto) 0.8 Thou/mm3 (1.0-4.8); Lymphocytes % (Auto) 32 % (10-50); Mean Corpuscular HGB Conc 32.6 g/dl (31.0-37.0); Mean Corpuscular Hemoglobin 34.4 pg (25.0-35.0); Mean Corpuscular Volume 105 fL (80-100); Monocytes # (Auto) 0.2 Thou/mm3 (0.0-0.8); Monocytes % (Auto) 9 % (0-12); Neutrophils # (Auto) 1.3 Thou/mm3 (1.8-7.7); Neutrophils % (Auto) 54 % (37-80); Nucleated Red Blood Cell # 0.00 Thou/mm3 (0.00-0.00); Nucleated Red Blood Cell % 0 /100 WBC (0); RDW Standard Deviation 63.2 fL (36.4-46.3); Red Blood Count 2.59 Miln/mm3 (4.00-5.20); Reticulocyte % (Auto) 3.7 % (0.5-1.5); Reticulocyte Absolute Auto 96.6 Biln/L (25.0-75.0); Reticulocyte Hgb Content 37.4 pg (28.0-35.0); White Blood Count 2.3 Thou/mm3 (3.6-11.0)
[2024-11-24 16:21] LABS: Platelet Count 41 Thou/mm3 (140-440)
[2024-11-24 16:29] LABS: Alanine Aminotransferase 18 U/L (10-49); Albumin, Serum 3.1 gm/dL (3.4-4.8); Alkaline Phosphatase 133 U/L (46-116); Aspartate Amino Transferase 47 U/L (0-34); Bilirubin,Direct 1.2 mg/dL (0.0-0.3); Bilirubin,Total 2.1 mg/dL (0.3-1.2); Total Protein 6.2 gm/dL (5.7-8.2)
[2024-11-24 17:26] LABS: Slide Review Platelets confirmed
== END | disposition home or self-care (01) ==
LOC: COPL 14:25
PROVIDERS: PCP Internal Medicine; Referring Provider Internal Medicine; Visit Provider Internal Medicine
DX: D50.0 Iron deficiency anemia secondary to blood loss (chronic) (principal)
CPT/HCPCS: 36415; 80076; 85025; 85046

== ENCOUNTER → 2024-12-10 | Outpatient (CLI) | payer OTHER, SELFPAY ==
[2024-12-10 11:32] LABS: Basophils # (Auto) 0.0 Thou/mm3 (0.0-0.2); Basophils % (Auto) 1 % (0-2.5); Eosinophils # (Auto) 0.1 Thou/mm3 (0.0-0.5); Eosinophils % (Auto) 5 % (0-10); Hematocrit 26.4 % (36.0-46.0); Immature Granulocytes Auto 0.01 Thou/mm3 (0.00-0.00); Lymphocytes # (Auto) 0.6 Thou/mm3 (1.0-4.8); Lymphocytes % (Auto) 29 % (10-50); Mean Corpuscular HGB Conc 33.3 g/dl (31.0-37.0); Mean Corpuscular Hemoglobin 34.2 pg (25.0-35.0); Mean Corpuscular Volume 103 fL (80-100); Monocytes # (Auto) 0.2 Thou/mm3 (0.0-0.8); Monocytes % (Auto) 8 % (0-12); Neutrophils # (Auto) 1.2 Thou/mm3 (1.8-7.7); Neutrophils % (Auto) 57 % (37-80); Nucleated Red Blood Cell # 0.00 Thou/mm3 (0.00-0.00); Nucleated Red Blood Cell % 0 /100 WBC (0); RDW Standard Deviation 63.7 fL (36.4-46.3); Red Blood Count 2.57 Miln/mm3 (4.00-5.20); White Blood Count 2.1 Thou/mm3 (3.6-11.0)
[2024-12-10 11:34] LABS: Hemoglobin 8.8 g/dL (12.0-16.0); Platelet Count 51 Thou/mm3 (140-440)
[2024-12-10 11:58] LABS: Alanine Aminotransferase 16 U/L (10-49); Albumin, Serum 3.0 gm/dL (3.4-4.8); Albumin/Globulin Ratio 1.0 (1.2-2.2); Alkaline Phosphatase 100 U/L (46-116); Anion Gap 8 (7-16); Aspartate Amino Transferase 45 U/L (0-34); BUN/Creatinine Ratio 19 Ratio (12-20); Bilirubin,Total 2.8 mg/dL (0.3-1.2); Blood Urea Nitrogen 31 mg/dL (9-23); Calcium 9.2 mg/dL (8.3-10.6); Calcium (Corrected) 10.0 mg/dL (8.5-10.1); Carbon Dioxide 25.5 mMol/L (20.0-31.0); Chloride 103 mMol/L (98-107); Creatinine (Component) 1.6 mg/dL (0.6-1.3); Globulin 2.9 gm/dL (2.3-3.5); Glucose 277 mg/dL (74-106); Osmolality,Calculated 288 (275-295); Potassium 5.1 mMol/L (3.4-5.1); Sodium 136 mMol/L (136-145); Total Protein 5.9 gm/dL (5.7-8.2); eGFR 35 See Note
[2024-12-10 12:32] LABS: Slide Review Platelets confirmed
== END | disposition home or self-care (01) ==
LOC: COPL 10:04
PROVIDERS: PCP Internal Medicine; Referring Provider Specialist; Visit Provider Specialist
DX: E78.9 Disorder of lipoprotein metabolism, unspecified (principal)
CPT/HCPCS: 36415; 80053; 85025

== ENCOUNTER → 2024-12-23 | Outpatient (CLI) | payer OTHER, SELFPAY ==
[2024-12-23 13:47] LABS: Basophils # (Auto) 0.0 Thou/mm3 (0.0-0.2); Basophils % (Auto) 1 % (0-2.5); Eosinophils # (Auto) 0.1 Thou/mm3 (0.0-0.5); Eosinophils % (Auto) 4 % (0-10); Hematocrit 27.5 % (36.0-46.0); Hemoglobin 9.3 g/dL (12.0-16.0); Immature Granulocytes Auto 0.00 Thou/mm3 (0.00-0.00); Lymphocytes # (Auto) 0.6 Thou/mm3 (1.0-4.8); Lymphocytes % (Auto) 30 % (10-50); Mean Corpuscular HGB Conc 33.8 g/dl (31.0-37.0); Mean Corpuscular Hemoglobin 34.3 pg (25.0-35.0); Mean Corpuscular Volume 102 fL (80-100); Monocytes # (Auto) 0.2 Thou/mm3 (0.0-0.8); Monocytes % (Auto) 8 % (0-12); Neutrophils # (Auto) 1.1 Thou/mm3 (1.8-7.7); Neutrophils % (Auto) 58 % (37-80); Nucleated Red Blood Cell # 0.00 Thou/mm3 (0.00-0.00); Nucleated Red Blood Cell % 0 /100 WBC (0); RDW Standard Deviation 58.4 fL (36.4-46.3); Red Blood Count 2.71 Miln/mm3 (4.00-5.20); White Blood Count 1.9 Thou/mm3 (3.6-11.0)
[2024-12-23 14:02] LABS: Alanine Aminotransferase 17 U/L (10-49); Albumin, Serum 2.9 gm/dL (3.4-4.8); Albumin/Globulin Ratio 1.0 (1.2-2.2); Alkaline Phosphatase 112 U/L (46-116); Anion Gap 7 (7-16); Aspartate Amino Transferase 44 U/L (0-34); BUN/Creatinine Ratio 19 Ratio (12-20); Bilirubin,Total 2.3 mg/dL (0.3-1.2); Blood Urea Nitrogen 34 mg/dL (9-23); Calcium 8.6 mg/dL (8.3-10.6); Calcium (Corrected) 9.5 mg/dL (8.5-10.1); Carbon Dioxide 26.8 mMol/L (20.0-31.0); Chloride 103 mMol/L (98-107); Creatinine (Component) 1.8 mg/dL (0.6-1.3); Globulin 3.0 gm/dL (2.3-3.5); Glucose 390 mg/dL (74-106); Osmolality,Calculated 297 (275-295); Potassium 4.7 mMol/L (3.4-5.1); Sodium 137 mMol/L (136-145); Total Protein 5.9 gm/dL (5.7-8.2); eGFR 31 See Note
[2024-12-23 14:07] LABS: Platelet Count 39 Thou/mm3 (140-440)
[2024-12-23 15:19] LABS: Slide Review Platelets confirmed
== END | disposition home or self-care (01) ==
LOC: COPL 13:00
PROVIDERS: PCP Internal Medicine; Referring Provider Specialist; Visit Provider Specialist
DX: E11.9 Type 2 diabetes mellitus without complications (principal); R18.8 Other ascites
CPT/HCPCS: 36415; 80053; 85025

== ENCOUNTER → 2025-02-03 | Outpatient (CLI) | payer OTHER, SELFPAY ==
--- NOTE | 2025-02-03 13:15 | XR_ITS ---
Examination: Screening digital mammography, bilateral Computer aided detection 3-D breast Tomosynthesis, bilateral Date and time of exam: February 03, 2025, 11:23 a.m., compared to mammograms dating to June 30, 2012 Indication: Screening Technique: Nonmagnified MLO, CC views of the breasts to been obtained, reconstructed from 3-D Tomosynthesis images. R2 computer aided detection program utilized for evaluation of suspicious masses and/or abnormal calcifications. 3-D Tomosynthesis images obtained. Findings: The breasts are heterogeneously dense, which may obscure small masses Benign calcifications. No interval suspicious masses Impression: BI-RADS category II: Benign Findings. Recommend 1 year follow-up mammogram.
== END | disposition home or self-care (01) ==
LOC: CDIM 11:11
PROVIDERS: Referring Provider Internal Medicine; Visit Provider Internal Medicine
DX: Z12.31 Encounter for screening mammogram for malignant neoplasm of breast (principal); R92.323 Mammographic fibroglandular density, bilateral breasts; R92.1 Mammographic calcification found on diagnostic imaging of breast
CPT/HCPCS: 77063; 77067

== ENCOUNTER → 2025-02-08 | Outpatient (CLI) | payer OTHER, SELFPAY ==
[2025-02-08 09:28] LABS: Basophils # (Auto) 0.0 Thou/mm3 (0.0-0.2); Basophils % (Auto) 1 % (0-2.5); Eosinophils # (Auto) 0.1 Thou/mm3 (0.0-0.5); Eosinophils % (Auto) 3 % (0-10); Hematocrit 30.6 % (36.0-46.0); Hemoglobin 10.8 g/dL (12.0-16.0); Immature Granulocytes Auto 0.01 Thou/mm3 (0.00-0.00); Lymphocytes # (Auto) 0.8 Thou/mm3 (1.0-4.8); Lymphocytes % (Auto) 30 % (10-50); Mean Corpuscular HGB Conc 35.3 g/dl (31.0-37.0); Mean Corpuscular Hemoglobin 33.9 pg (25.0-35.0); Mean Corpuscular Volume 96 fL (80-100); Monocytes # (Auto) 0.3 Thou/mm3 (0.0-0.8); Monocytes % (Auto) 10 % (0-12); Neutrophils # (Auto) 1.5 Thou/mm3 (1.8-7.7); Neutrophils % (Auto) 55 % (37-80); Nucleated Red Blood Cell # 0.00 Thou/mm3 (0.00-0.00); Nucleated Red Blood Cell % 0 /100 WBC (0); RDW Standard Deviation 51.8 fL (36.4-46.3); Red Blood Count 3.19 Miln/mm3 (4.00-5.20); White Blood Count 2.8 Thou/mm3 (3.6-11.0)
[2025-02-08 09:30] LABS: Alanine Aminotransferase 24 U/L (10-49); Albumin, Serum 3.5 gm/dL (3.4-4.8); Albumin/Globulin Ratio 1.0 (1.2-2.2); Alkaline Phosphatase 98 U/L (46-116); Anion Gap 10 (7-16); Aspartate Amino Transferase 23 U/L (0-34); BUN/Creatinine Ratio 21 Ratio (12-20); Bilirubin,Total 2.8 mg/dL (0.3-1.2); Blood Urea Nitrogen 34 mg/dL (9-23); Calcium 10.2 mg/dL (8.3-10.6); Calcium (Corrected) 10.6 mg/dL (8.5-10.1); Carbon Dioxide 25.8 mMol/L (20.0-31.0); Chloride 105 mMol/L (98-107); Creatinine (Component) 1.6 mg/dL (0.6-1.3); Globulin 3.5 gm/dL (2.3-3.5); Glucose 129 mg/dL (74-106); Osmolality,Calculated 290 (275-295); Potassium 4.7 mMol/L (3.4-5.1); Sodium 141 mMol/L (136-145); Total Protein 7.0 gm/dL (5.7-8.2); eGFR 35 See Note
[2025-02-08 09:44] LABS: Platelet Count 40 Thou/mm3 (140-440)
[2025-02-08 11:48] LABS: Slide Review Platelets confirmed
== END | disposition home or self-care (01) ==
PROVIDERS: PCP Specialist; Referring Provider Specialist; Visit Provider Specialist
DX: E78.9 Disorder of lipoprotein metabolism, unspecified (principal)
CPT/HCPCS: 36415; 80053; 85025

== ENCOUNTER 2025-02-17 05:58 | Inpatient (IN) | payer OTHER, MEDICARE, SELFPAY ==
[2025-02-17] VITALS (57 sets, daily range): BP systolic 81–193; BP diastolic 44–114; PULSE 61–90; RESP 13–97; TEMP 36.2–37.1; O2SAT 80–100
--- NOTE | 2025-02-17 06:11 | EKG_ITS ---
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: : 1960 Requested By: Gavin Sapp Order Number: [id number] Reading MD: Gavin Sapp Measurements Intervals [place] Rate: 63 P: 82 GA: 163 QRS: -50 QRSD: 146 T: 5 QT: 480 QTc: 494 Interpretive Statements SINUS RHYTHM RIGHT BUNDLE BRANCH BLOCK [120+ ms QRS DURATION, UPRIGHT V1, 40+ ms S IN I/aVL/V4/V5/V6] LEFT ANTERIOR FASCICULAR BLOCK [QRS AXIS <= -45, QR IN I, RS IN II] Compared to ECG 11/15/2024 11:46:26 Right bundle-branch block now present Left anterior fascicular block now present Sinus bradycardia no longer present Left-axis deviation no longer present Intraventricular conduction delay no longer present /store/S0/[id number]/[id number].pdf
--- NOTE | 2025-02-17 06:18 | XR_ITS ---
Examination: CT brain head without contrast. 2-D sagittal coronal reconstructions Date and time of exam: February 17, 2002 5 0629 hours INDICATIONS: Stroke alert onset focal neurologic deficit today CTDI: vol (mGy): 46.1 DLP: (mGycm): 887 Technique: Multiple CT axial sections of the brain have been obtained, 5 mm slice thickness. Contrast has not been administered. 2-D sagittal, coronal reconstructions have been obtained Low dose protocols were performed. One or more of the following dose reduction techniques were used; automated exposure control, adjustment of the mA and/or KV according to patient size, use of iterative reconstruction technique. Findings: No significant ventricular enlargement. Intra-axial or extra-axial hemorrhage density is not seen. No mass effect or midline shift Basal cisterns are not remarkable. Fourth ventricle is midline. Cranial vault intact. Impression: Negative for acute hemorrhage, mass effect or midline shift
--- NOTE | 2025-02-17 06:18 | XR_ITS ---
Examination: CTA carotids with intravenous contrast CTA brain, head with intravenous contrast. 2-D sagittal, coronal reconstructions. 3-D reconstructions. Exam date and time: February 17, 2025, 0631 hours INDICATIONS: Stroke alert, onset focal neurologic deficit left-sided facial numbness unresponsive 8 hours CTDI: vol (mGy) 17.32 DLP: (mGycm) 445 Technique: Multiple CTA axial brain, head carotid images post intravenous contrast injection 60 cc, [id number]. 2-D sagittal, coronal reconstructions. 3-D reconstructions, 3-D post processing including vascular maximum intensity projection images. Low dose protocols were performed. One or more of the following dose reduction techniques were used; automated exposure control, adjustment of the mA and/or KV according to patient size, use of iterative reconstruction technique. Findings: No significant common carotid carotid bifurcation or internal carotid artery stenoses Dominant left vertebral artery in the neck with no critical stenoses Intracranial vertebral arteries basilar artery and posterior cerebral branches fill with no large vessel occlusions Petrous juxtasellar portions internal carotid arteries fill M1 segments middle cerebral arteries middle cerebral artery trifurcation vessels anterior cerebral arteries fill with no large vessel occlusions IMPRESSION: No significant neck arterial stenoses No cerebral large vessel arterial occlusions or thrombus
--- NOTE | 2025-02-17 06:18 | XR_ITS ---
EXAMINATION: AP chest single view TECHNIQUE: AP portable semiupright chest single view Date and time: February 17, 2025, 0655 hours, comparison September 07, 2024 INDICATIONS: Stroke alert this morning FINDINGS: Mild enlargement left ventricle Moderate vascular congestion. No aspiration pneumonia. Prominent osteopenia IMPRESSION: Moderate vascular congestion. No aspiration pneumonia
--- NOTE | 2025-02-17 06:36 | ESCONSULT_ITS ---
Tele Neuro Consultation Consultation Date 02/17/25 Most Recent Vital Signs Last Vital Signs Temp 97.7 F 02/17/25 06:07 Pulse 61 02/17/25 06:07 Resp 16 02/17/25 06:07 BP 94/54 L 02/17/25 06:07 Pulse Ox 100 02/17/25 06:07 O2 Del Method Room Air 02/17/25 06:07 Consultation Narrative [facility] TeleNeurology Consult Services Patient Name:???mitchell howard Date of :???1960 Identification Number:??? Date of Service:???02/17/2025 06:19:20 Diagnosis:?R41.89 - Unresponsive Impression: ?This is a 64 yo F w a PMHX of CHF, DM, HTN, HLD, who presents to the ED with the acute onset of unresponsivenss. She was last known to be at baseline at 9PM last nightand woke up this way. On arrival to the ED her symptoms remain persistent. BP was found to be 128 systolic. ?Physical exam with unresponsiveness. Moving the RUE and RLE to painful stimuli, with decreased L sided movement to painful stimuli. Eyes are closed and midling. ?Labs pending ?Imaging with CTH pending official read ?Etiology of presentation favored to be from reversible pathology from toxic/metabolic/infectious/hemodynamic cause. Consider DKA and heart failure. ?Less likely ischemic or ictal, although would consider this. ? ? ?-CTA head and neck-->if LVO found will treat this entire case as a stroke and DW PURNIMA. ? ? ?Otherwise, would start with tests for reversible causes: ? ?-UA, Utox, BNP, thiamine, ammonia, RPR, TSH, B12, ABG, alcohol, ESR, CRP, troponins, CBC, CMP, LFTs, CPK, lactic acid, blood cultures if febrile. ?-CXR ? ? ?If the above is unrevealing and the symptoms persist/recur, would consider the below: ? ?-MRI brain with and w/o con ?-rEEG ? ?If the above is unrevealing and the symptoms persist, would consider the below ? ?-LP Advanced Imaging:Advanced Imaging Deferred because: Advanced Imaging not obtained at this time. Reason: not deferred, and pending completion Metrics: Last Known Well: 02/16/2025 21:00:00 Arrival Time: 02/17/2025 05:58:00 Activation Time: 02/17/2025 06:19:19 Initial Response Time: 02/17/2025 06:20:47Symptoms: unresponsive. Initial patient interaction: 02/17/2025 06:25:13 NIHSS Assessment Completed: 02/17/2025 06:30:24Patient is not a candidate for Thrombolytic. Thrombolytic Medical Decision: 02/17/2025 06:31:22Patient was not deemed candidate for Thrombolytic because of following reasons: LKW outside 4.[address] Head: I personally reviewed all the CT images that were available to me and it showed: pending rads read Primary Provider Notified of Diagnostic Impression and Management Plan on: 02/17/2025 06:37:08 History of Present Illness:Patient is a 64 year old Female. Patient was brought by EMS for symptoms of unresponsive. This is a 64 yo F w a PMHX of CHF, DM, HTN, HLD, who presents to the ED with the acute onset of unresponsivenss. She was last known to be at baseline at 9PM last nightand woke up this way. On arrival to the ED her symptoms remain persistent. BP was found to be 128 systolic. She was taken for CTH and further evaluation. Decision on whether or not to give pharmacological thrombolysis was made based on indications, contraindications, and patient's disability status and preference. ? Medications: Anticoagulant use:??Unknown Antiplatelet use:?Unknown Reviewed EMR for current medications Allergies:? NKDA Social History: Smoking: No Alcohol Use: No Drug Use: No Family History: There is no family history of premature cerebrovascular disease pertinent to this consultation ROS : 14 Points Review of Systems was performed and was negative except mentioned in HPI. Past Surgical History: There Is No Surgical History Contributory To Today?s Visit ? Examination: BP(128/56),?Pulse(100), 1A: Level of Consciousness - Postures or Unresponsive?+ 3 1B: Ask Month and Age - Both Questions Right?+ 0 1C: Blink Eyes & Squeeze Hands - Performs Both Tasks?+ 0 2: Test Horizontal Extraocular Movements - Normal?+ 0 3: Test Visual [place] - No Visual Loss?+ 0 4: Test Facial Palsy (Use Grimace if Obtunded) - Normal symmetry?+ 0 5A: Test Left Arm Motor Drift - No Effort Against [place]?+ 3 5B: Test Right Arm Motor Drift - Some Effort Against [place]?+ 2 6A: Test Left Leg Motor Drift - No Effort Against [place]?+ 3 6B: Test Right Leg Motor Drift - Some Effort Against [place]?+ 2 7: Test Limb Ataxia (FNF/Heel-Samuels) - No Ataxia?+ 0 8: Test Sensation - Coma/Unresponsive?+ 2 9: Test Language/Aphasia - Coma/Unresponsive?+ 3 10: Test Dysarthria - Intubated/Unable to Test?+ 0 11: Test Extinction/Inattention - No abnormality?+ 0 NIHSS Score:?18 Pre-Morbid Modified Yves Scale: 0 Points = No symptoms at all Spoke with :?attending This consult was conducted in real time using interactive audio and video technology. Patient was informed of the technology being used for this visit and agreed to proceed. Patient located in hospital and provider located at home/office setting. Patient is being evaluated for possible acute neurologic impairment and high probability of imminent or life-threatening deterioration. I spent total of 35 minutes providing care to this patient, including time for face to face visit via telemedicine, review of medical records, imaging studies and discussion of findings with providers, the patient and/or family. Dr Elliot Grijalva [facility] For Inpatient follow-up with [facility] physician please call [facility] at . As we are not an outpatient service for any post hospital discharge needs please contact the hospital for assistance. If you have any questions for the [facility] physicians or need to reconsult for clinical or diagnostic changes please contact us via [facility] at . Non-radiologist review of imaging performed to assist with emergent clinical decision-making. Remote physician workstations do not possess the same resolution, calibration, or diagnostic capabilities as hospital-based radiology reading stations, and formal radiologist read is necessary. Signature :?Elliot Grijalva ?
[2025-02-17 06:50] LABS: Base Excess 6 (-3-3); HCO3 30 mEq/L (20-26); Inspired Oxygen, FIO2 100 %; O2 Saturation 99 % (91-98); PCO2 36 mmHg (32.0-48.0); PO2 88 mmHg (83-108); pH, Arterial 7.52 (7.35-7.45)
[2025-02-17 06:53] LABS: Basophils # (Auto) 0.0 Thou/mm3 (0.0-0.2); Basophils % (Auto) 0 % (0-2.5); Eosinophils # (Auto) 0.1 Thou/mm3 (0.0-0.5); Eosinophils % (Auto) 2 % (0-10); Hematocrit 24.4 % (36.0-46.0); Hemoglobin 9.0 g/dL (12.0-16.0); Immature Granulocytes Auto 0.01 Thou/mm3 (0.00-0.00); Lymphocytes # (Auto) 1.2 Thou/mm3 (1.0-4.8); Lymphocytes % (Auto) 42 % (10-50); Mean Corpuscular HGB Conc 36.9 g/dl (31.0-37.0); Mean Corpuscular Hemoglobin 34.5 pg (25.0-35.0); Mean Corpuscular Volume 94 fL (80-100); Monocytes # (Auto) 0.4 Thou/mm3 (0.0-0.8); Monocytes % (Auto) 12 % (0-12); Neutrophils # (Auto) 1.2 Thou/mm3 (1.8-7.7); Neutrophils % (Auto) 43 % (37-80); Nucleated Red Blood Cell # 0.00 Thou/mm3 (0.00-0.00); Nucleated Red Blood Cell % 0 /100 WBC (0); RDW Standard Deviation 51.2 fL (36.4-46.3); Red Blood Count 2.61 Miln/mm3 (4.00-5.20); White Blood Count 2.8 Thou/mm3 (3.6-11.0)
[2025-02-17 06:53] LABS: Allen Test Not Performed; Puncture Site Right Brachial
[2025-02-17 07:06] LABS: Platelet Count 47 Thou/mm3 (140-440)
[2025-02-17 07:10] LABS: Glucose Estimated Average 163 mg/dL (80-131); Hemoglobin A1C 7.3 % Hgb (4.8-6.0)
[2025-02-17 07:12] LABS: Collection Type, Urine Catheter
--- NOTE | 2025-02-17 07:14 | PC.LAC ---
Pt. here from home to room 2, pt.'s is bedside, he states pt.'s glucose alarm went off at 0115 and 0245, pt.'s states both times pt. woke up and talked to him, pt.'s states at 0530 he couldn't wake pt. up. Pt.'s states back in August pt. was like this and was transferred to [facility] because her ammonia levels were high. Pt.'s states pt. stayed in [facility] X 2 weeks. Pt. will yawn at this time but will not respond verbally, Pt. withdraws to pain. No s/s of distress noted at this time.
[2025-02-17 07:22] LABS: Lactate (Lactic Acid) 2.5 mMol/L (0.4-2.0)
[2025-02-17 07:25] LABS: Beta Hydroxybutyrate 0.2 mmol/L (<0.6)
[2025-02-17 07:25] LABS: Amphetamine/Methamp Scrn,U Negative (Negative); Barbiturate Screen,Urine Negative (Negative); Benzodiazepines Screen,Urine Negative (Negative); Benzoylecgonine Screen, Ur Negative (Negative); Fentanyl Screen,Urine Negative (Negative); Opiate Screen,Urine Negative (Negative); THC Screen,Urine Negative (Negative)
[2025-02-17] MEDS: INSULIN HUM REGULAR 1 UNIT/0.01 ML (PER UNIT) 5.9 UNIT IV (07:27)
[2025-02-17] MEDS: cefTRIAXone 2 GM in SODIUM CHLORIDE 0.9% (Popper) 50 ML IV (07:40)
[2025-02-17 07:53] LABS: Bilirubin,Urine Negative (Negative); Blood,Urine Negative (Negative); Clarity,Urine Clear (Clear/Hazy); Color,Urine Yellow (Lt Yel-Yel); Culture Indicated,Urine Not Indicated; Glucose, Urine 4+ (Negative); Ketones,Urine Negative (Negative); Leukocyte Esterase,Urine Negative (Negative); Nitrite,Urine Negative (Negative); PH,Urine 6.0 (5.0-7.0); Protein,Urine Negative (Neg - Trace); RBC,Urine 1 /hpf (0-3); Specific Gravity,Urine 1.015 (1.001-1.035); Squamous Epithelial Cell,Urine < 1 /hpf (0-5); Urobilinogen,Urine Negative mg/dL (0.0-1.0); WBC,Urine 1 /hpf (0-5)
[2025-02-17 07:54] LABS: Alanine Aminotransferase 20 U/L (10-49); Albumin, Serum 3.1 gm/dL (3.4-4.8); Albumin/Globulin Ratio 0.9 (1.2-2.2); Alkaline Phosphatase 193 U/L (46-116); Anion Gap 11 (7-16); Aspartate Amino Transferase 39 U/L (0-34); BUN/Creatinine Ratio 22 Ratio (12-20); Bilirubin,Total 2.2 mg/dL (0.3-1.2); Blood Urea Nitrogen 39 mg/dL (9-23); Calcium 8.8 mg/dL (8.3-10.6); Calcium (Corrected) 9.5 mg/dL (8.5-10.1); Carbon Dioxide 28.5 mMol/L (20.0-31.0); Chloride 96 mMol/L (98-107); Globulin 3.4 gm/dL (2.3-3.5); Magnesium 1.8 mg/dL (1.6-2.6); Osmolality,Calculated 298 (275-295); Phosphorous 2.5 mg/dL (2.4-5.1); Potassium 3.8 mMol/L (3.4-5.1); Sodium 135 mMol/L (136-145); Total Protein 6.5 gm/dL (5.7-8.2); Troponin I < 0.020 ng/mL (0.0-0.045); eGFR 31 See Note
[2025-02-17 08:01] LABS: Glucose 435 mg/dL (74-106)
[2025-02-17 08:03] LABS: HCG Titer if Positive Negative; INR 1.4 (0.9-1.3); Partial Thromboplastin Time 30.8 Seconds (22.0-36.0); Prothrombin Time 14.3 Seconds (9.0-12.2)
--- NOTE | 2025-02-17 08:05 | PC.NURSE ---
Pt.'s glucose monitor is on the back of pt.'s right upper arm.
--- NOTE | 2025-02-17 08:06 | PC.NURSE ---
Coffee given to pt.'s spouse bedside.
--- NOTE | 2025-02-17 09:34 | XR_ITS ---
Examination: Abdomen sonogram, Limited Date and time of exam: February 10 [id number], 1129 hours INDICATIONS: Abdominal pain this week Technique: Real-time powell scale transabdominal sonographic images of the upper abdomen obtained. Findings: 17 mm sludge ball No definite gallstones Gallbladder wall 0.32 cm Common bile duct 0.50 cm Pancreas obscured by bowel gas Liver 12.5 cm no liver lesions Normal hepatopetal portal venous flow Patent IVC IMPRESSION: Gallbladder sludge ball, negative for cholelithiasis, negative for cholecystitis Normal common bile duct
--- NOTE | 2025-02-17 10:01 | PD.EDAMS ---
Altered Mental Status RME/HPI General Chief Complaint: Altered Mental Status Stated Complaint: AMS Time Seen by Provider: 02/17/25 06:24 Arrival date/time: 02/17/25 05:58 Related Data Home Medications ?Medication ?Instructions ?Recorded ?Confirmed simvastatin 10 mg tablet (Zocor) 10 mg PO HS #0 tabs 12/07/15 11/16/24 folic acid 1 mg tablet 1 mg PO QDAY 08/14/24 11/16/24 albuterol sulfate 90 mcg/actuation 2 puff inhalation .COMPLEX sob 09/08/24 11/16/24 aerosol inhaler bumetanide 1 mg tablet 1 mg PO QDAY 11/16/24 11/16/24 carvedilol 3.125 mg tablet 3.125 mg PO BID 11/16/24 11/16/24 hydrocodone 5 mg-acetaminophen 325 0.5 tab PO TID PRN pain 11/16/24 11/16/24 mg tablet spironolactone 50 mg tablet 50 mg PO DAILY 11/16/24 11/16/24 Previous Rx's ?Medication ?Instructions ?Recorded ferrous sulfate 325 mg (65 mg 325 mg PO BID 1 month #60 tabs 08/21/24 iron) tablet (FeroSul) blood-glucose sensor (FreeStyle #2 ea 09/09/24 Nely 3 Plus Sensor device) blood-glucose,hand weaver,cont #1 ea 09/09/24 (FreeStyle Nely 3 [place]) insulin glargine-yfgn 100 unit/mL 35 unit (0.35 mL) subcut QDAY 09/09/24 (3 mL) subcutaneous pen (Semglee insulin dependent type 2 diabetes (insulin glargine-yfgn) Pen) #15 mL Allergies Allergy/AdvReac Type Severity Reaction Status Date / Time No Known Allergies Allergy Verified 11/16/24 08:07 Course Orders Category Date Time Status Bedside Blood Glucose NOW Care 02/17/25 06:18 Completed Bedside Blood Glucose STAT Care 02/17/25 06:29 Completed COVID-19 Screening Questionnaire NOW Care 02/17/25 09:53 Active Structural Mill Supervisor NOW Care 02/17/25 06:18 Active Continuous Pulse Oximetry NOW Care 02/17/25 06:18 Completed DKA Protocol QSHIFT Care 02/17/25 06:29 Active Decision to Admit X1 Care 02/17/25 09:53 Active EKG (ED ONLY) *Do not use* NOW Care 02/17/25 06:11 Completed Pugh [Urinary Catheter] QS Care 02/17/25 06:06 Active Pugh to [place] Routine Care 02/17/25 06:06 Ordered In and Out Catheter NEEDED Care 02/17/25 06:18 Active Insert IV NOW Care 02/17/25 06:06 Active Intake and Output Routine Care 02/17/25 06:29 Ordered NIH Stroke Scale now Care 02/17/25 06:18 Active NPO NOW Care 02/17/25 06:18 Active Notify provider NEEDED Care 02/17/25 06:29 Active Nurse Swallow Screen x1 Care 02/17/25 06:18 Active Consult to Neurology / Tele-Neurology Routine Cons 02/17/25 06:18 Active Referral Registered Dietitian Routine Cons 02/17/25 06:[address] angio stroke protocol Stat Exams 02/17/25 06:[address] stroke protocol Stat Exams 02/17/25 06:18 Completed EKG (ED Only) Stat Exams 02/17/25 06:11 Draft US gall bladder Stat Exams 02/17/25 09:34 Ordered XR chest 1V portable Stat Exams 02/17/25 06:18 Completed Ammonia Stat Lab 02/17/25 09:14 Ordered Arterial Blood Gas Stat Lab 02/17/25 06:45 Completed Beta Hydroxybutyrate Stat Lab 02/17/25 07:10 Completed Blood Culture (Lab) Stat Lab 02/17/25 06:20 Received CBC Stat Lab 02/17/25 06:20 Results Comprehensive Metabolic Panel Stat Lab 02/17/25 07:10 Completed Drug Screen,Urine Stat Lab 02/17/25 06:57 Completed Glycohemoglobin w (eAG) Stat Lab 02/17/25 06:20 Completed HCG Titer if Positive Stat Lab 02/17/25 07:10 Completed Lactate (Lactic Acid) Stat Lab 02/17/25 07:10 Results Magnesium Stat Lab 02/17/25 07:10 Completed Partial Thromboplastin Time Stat Lab 02/17/25 07:10 Completed Phosphorous Stat Lab 02/17/25 07:10 Completed Prothrombin Time with INR Stat Lab 02/17/25 07:10 Completed Troponin I Stat Lab 02/17/25 07:10 Completed Urinalysis, C/S if Indicated Stat Lab 02/17/25 06:57 Completed Dextrose 5%-Lactated Ringers [D5-Lr] 1,000 ml Med 02/17/25 06:29 Active Pot Chl Additive [KCl Additive] 20 meq IV 250 mls/hr Dextrose 5%-Lactated Ringers [D5-Lr] 1,000 ml Med 02/17/25 06:29 Active Pot Chl Additive [KCl Additive] 40 meq IV 250 mls/hr Dextrose 5%-Lactated Ringers [D5-Lr] 1,000 ml Med 02/17/25 06:29 Active IV 250 mls/hr Dextrose 50% Syr [D50w Syringe Abboject] Med 02/17/25 06:29 Active 25 ml IV PRNMRX1 PRN Insulin Regular Med 02/17/25 06:29 Discontinued 5.9 unit IV X1 ONE Labetalol* IV [Trandate* IV] Med 02/17/25 06:18 Active 10 mg IVP Q15M PRN Magnesium Sulfate 2 GM Ivpb [Magnesium Sulfate Ivpb] Med 02/17/25 06:29 Active 2 gm in 50 ml IV 25 mls/hr POT PHOS 15 mMol in NS 250 ML [Pot Phos 15 mMol in NS Med 02/17/25 06:29 Active 250 ml] 15 mmol in 250 ml IV PRN POTASSIUM CHL 10 mEq IVPB [Kcl Ivpb] Med 02/17/25 06:29 Active 10 meq in 100 ml IV 100 mls/hr POTASSIUM CHL 10 mEq IVPB [Kcl Ivpb] Med 02/17/25 06:29 Active 10 meq in 100 ml IV PRN Pre-Mixed [Pre-mixed Bag] 1 bag Med 02/17/25 06:29 Active Insulin Reg 100 Units/100 ml [Myxredlin] 100 unit IV 0.1 unit/kg/hr Ringers Lactated 1000 ml [Lactated Ringers] 1,000 ml Med 02/17/25 06:29 Active Pot Chl Additive [KCl Additive] 20 meq IV 250 mls/hr Ringers Lactated 1000 ml [Lactated Ringers] 1,000 ml Med 02/17/25 06:29 Active Pot Chl Additive [KCl Additive] 40 meq IV 250 mls/hr Ringers Lactated 1000 ml [Lactated Ringers] 1,000 ml Med 02/17/25 06:29 Active IV 250 mls/hr Sodium Bicarb 8.4% SYR Med 02/17/25 06:29 Active 50 ml IV Q4HR PRN Sodium Chloride 0.9% 250 ml [Ns] 250 ml Med 02/17/25 06:29 Active Sod Phos Additive [NaPhos Additive] 15 mmol IV 62.5 mls/hr cefTRIAXone [Rocephin] 2 gm Med 02/17/25 06:32 Discontinued SODIUM CHLORIDE 0.9% (Popper) [Ns 0.9% (P)] 50 ml IV X1 Oxygen Delivery NOW RT 02/17/25 06:18 Active Vital Signs Vital signs: Vital Signs Temperature 97.7 F 02/17/25 06:07 Pulse Rate 61 02/17/25 06:07 Respiratory Rate 16 02/17/25 06:07 Blood Pressure 94/54 L 02/17/25 06:07 Pulse Oximetry (%) 100 02/17/25 06:07 Oxygen Delivery Method Room Air 02/17/25 06:07 Altered Mental Status Medications / Prescriptions Medication administrations:: Medication Administration History Dextrose (Dextrose 50%-Water Inj 50 Ml Syringe) 25 ml IV PRNMRX1 PRN PRN Reason: Blood Sugar - Low Potassium Chloride 20 meq/ (Dextrose/Lactated Ringer's) 1,010 mls @ 250 mls/hr IV .Q4H3M PRN PRN Reason: K LEVEL 3.3 TO 5.3 mM/L Stop: 03/19/25 06:28 Potassium Chloride 40 meq/ (Dextrose/Lactated Ringer's) 1,020 mls @ 250 mls/hr IV .Q4H5M PRN PRN Reason: K LEVEL < 3.3mM/L Stop: 03/19/25 06:28 Potassium Chloride (Kcl Ivpb) 10 meq in 100 mls @ 100 mls/hr IV .Q1H PRN PRN Reason: IF POTASSIUM LESS THAN 3.3 Stop: 03/19/25 06:28 Magnesium Sulfate (Magnesium Sulfate Ivpb) 2 gm in 50 mls @ 25 mls/hr IV .Q2H PRN PRN Reason: PER DKA PROTOCOL Stop: 03/19/25 06:28 Insulin Human Regular 100 unit (/ IV Miscellaneous Supplies) 100 mls @ 5.85 mls/hr IV .Q17H6M PRN; Protocol PRN Reason: PER PROTOCOL Stop: 03/19/25 06:28 Dextrose/Lactated Ringer's (D5-Lr) 1,000 mls @ 250 mls/hr IV .Q4H PRN PRN Reason: PER PROTOCOL Stop: 03/19/25 06:28 Lactated Ringer's (Lactated Ringers) 1,000 mls @ 250 mls/hr IV .Q4H PRN PRN Reason: PER PROTOCOL Stop: 02/18/25 06:28 Potassium Chloride 20 meq/ (Lactated Ringer's) 1,010 mls @ 250 mls/hr IV .Q4H3M PRN PRN Reason: K LEVEL 3.3 TO 5.3mM/L Stop: 03/19/25 06:28 Potassium Chloride 40 meq/ (Lactated Ringer's) 1,020 mls @ 250 mls/hr IV .Q4H5M PRN PRN Reason: K LEVEL < 3.3 mM/L Stop: 03/19/25 06:28 Potassium Chloride (Kcl Ivpb) 10 meq in 100 mls @ 50 mls/hr IV PRN PRN PRN Reason: K LEVEL 3.3 to 5.3 & BG > 200 Stop: 03/19/25 06:28 Potassium Phosphate (Pot Phos 15 Mmol In Ns 250 Ml) 15 mmol in 250 mls @ 62.5 mls/hr IV PRN PRN PRN Reason: Phosphate <= 1mg/dL Stop: 03/19/25 06:28 Sodium Phosphate 15 mmol/ (Sodium Chloride) 255 mls @ 62.5 mls/hr IV .Q4H5M PRN PRN Reason: Phosphate <= 1mg/dL and K> than 5.3 Stop: 03/19/25 06:28 Labetalol HCl (Labetalol Inj 5 Mg/Ml Vial 4 Ml) 10 mg IVP Q15M PRN PRN Reason: hypertension Sodium Bicarbonate (Sodium Bicarb Inj 8.4% Syr 50 Ml Syringe) 50 ml IV Q4HR PRN PRN Reason: For ph <= to 7.0 Stop: 03/19/25 06:28 Discontinued Medications Ceftriaxone Sodium 2 gm/ (Sodium Chloride) 50 mls @ 100 mls/hr IV X1 ONE Stop: 02/17/25 07:01 Last Admin: 02/17/25 07:40 Dose: 100 mls/hr Documented By: ED Insulin Human Regular (Insulin Hum Regular 1 Unit/0.01 Ml (Per Unit)) 5.9 unit 0.1 unit/kg (5.9 unit) IV X1 ONE Stop: 02/17/25 06:30 Last Admin: 02/17/25 07:27 Dose: 5.9 unit Documented By: ED Co-signed By: DO Discharge Plan Prescriptions/Referrals Prescriptions/Med Rec: No Action simvastatin [Zocor] 10 MG tablet 10 mg PO HS Qty: 0 albuterol sulfate 90 mcg/actuation HFA aerosol inhaler 2 puff INHALATION .COMPLEX Rx Instructions: 2 puffs inhaled daily prn; (DME) FreeStyle Nely 3 Plus Sensor Device See Rx Instructions .Route Qty: 2 3RF Rx Instructions: As directed (DME) FreeStyle Nely 3 [place] Misc See Rx Instructions .Route Qty: 1 0RF Rx Instructions: As directed insulin glargine-yfgn [Semglee(insulin glarg-yfgn)Pen] 100 unit/mL (3 mL) insulin pen 35 unit subcut QDAY Qty: 15 0RF hydrocodone-acetaminophen 5-325 mg tablet 0.5 tab PO TID PRN (Reason: pain) Patient Comments: FOR SEVERE KNEE PAIN spironolactone 50 mg tablet 50 mg PO DAILY Patient Comments: TAKE 1 TABLET BY MOUTH ONCE DAILY IN THE MORNING bumetanide 1 mg tablet 1 mg PO QDAY carvedilol 3.125 mg tablet 3.125 mg PO BID Rx Instructions: must administer with a meal/food folic acid 1 mg tablet 1 mg PO QDAY ferrous sulfate [FeroSul] 325 mg (65 mg iron) tablet 325 mg PO BID 30 Days Qty: 60 0RF Referrals: Kaylie Montes MD [Primary Care Provider, Internal Medicine] - In 1 week Patient/Caregiver Discharge Instructions Print Language: Turkmen
[2025-02-17 10:18] LABS: Reflex Lactate? Y
[2025-02-17] MEDS: KETAMINE 50 MG/ML VIAL 10 ML IVP (10:23)
[2025-02-17] MEDS: ROCURONIUM INJ 10 MG/ML VIAL 10 ML 50 MG IVP (10:23)
--- NOTE | 2025-02-17 10:26 | XR_ITS ---
EXAMINATION: AP chest single view TECHNIQUE: AP portable upright chest single view Date and time: February 17, 2025, 10:50 a.m. INDICATIONS: Hypoxic respiratory failure today, post intubation post orogastric tube placement FINDINGS: Mild enlargement left ventricle Prominent vascular congestion Endotracheal tube tip 3 cm above carmen Orogastric sidehole at the GE junction Mild elevation left hemidiaphragm Prominent osteopenia IMPRESSION: Endotracheal tube tip 3 cm above carmen Prominent vascular congestion Advance the orogastric tube 5 cm
[2025-02-17 10:29] LABS: Slide Review Platelets confirmed
[2025-02-17 10:37] LABS: Lactic Acid, 3 HR 1.9 mMol/L (0.4-2.0)
[2025-02-17 10:41] LABS: Ammonia 251 uMol/L (11-32)
--- NOTE | 2025-02-17 11:10 | PC.NURSE ---
Dr. Story bedside talking with pt.'s , assessing pt. Dr. Campos and Dr. Awan bedside as well.
[2025-02-17 11:11] LABS: COVID-19 Antigen (In-House) Negative (Negative)
[2025-02-17] MEDS: LACTULOSE SYRUP 20 GM/30 ML UDC 30 GM NG ×3 (11:36→18:16)
[2025-02-17] MEDS: POTASSIUM CHL 10 mEq IVPB 10 MEQ/100 ML BAG 100 MEQ IV ×4 (11:48→16:33)
[2025-02-17] MEDS: Magnesium Sulfate 2 GM Ivpb 2 GM/50 ML BAG IV (11:48)
--- NOTE | 2025-02-17 11:52 | PD.EDAMS ---
Altered Mental Status RME/HPI General Chief Complaint: Altered Mental Status Stated Complaint: AMS Time Seen by Provider: 02/17/25 06:24 Arrival date/time: 02/17/25 05:58 Limitations: no limitations RME / HPI RME / HPI narrative: 64 year old female with history of HFpEF (65% 07/2024), hypertension, diabetes, decompensated cirrhosis with ascites, hyperlipidemia presents to the ED BIBA from home for evaluation of altered mental status today. Per EMS, family on scene reported patient was last known well before going to bed at 9pm last night . On arrival to ED, patient is minimally responsive and unable to provide any additional history. We later obtained further history. Patient has had previous admissions at [facility] for hepatic encephalopathy, approximately 2 weeks ago. Related Data Home Medications ?Medication ?Instructions ?Recorded ?Confirmed simvastatin 10 mg tablet (Zocor) 10 mg PO HS #0 tabs 12/07/15 11/16/24 folic acid 1 mg tablet 1 mg PO QDAY 08/14/24 11/16/24 albuterol sulfate 90 mcg/actuation 2 puff inhalation .COMPLEX sob 09/08/24 11/16/24 aerosol inhaler bumetanide 1 mg tablet 1 mg PO QDAY 11/16/24 11/16/24 carvedilol 3.125 mg tablet 3.125 mg PO BID 11/16/24 11/16/24 hydrocodone 5 mg-acetaminophen 325 0.5 tab PO TID PRN pain 11/16/24 11/16/24 mg tablet spironolactone 50 mg tablet 50 mg PO DAILY 11/16/24 11/16/24 Previous Rx's ?Medication ?Instructions ?Recorded ferrous sulfate 325 mg (65 mg 325 mg PO BID 1 month #60 tabs 08/21/24 iron) tablet (FeroSul) blood-glucose sensor (FreeStyle #2 ea 09/09/24 Nely 3 Plus Sensor device) blood-glucose,customs examiner,cont #1 ea 09/09/24 (FreeStyle Nely 3 [place]) insulin glargine-yfgn 100 unit/mL 35 unit (0.35 mL) subcut QDAY 09/09/24 (3 mL) subcutaneous pen (Semglee insulin dependent type 2 diabetes (insulin glargine-yfgn) Pen) #15 mL Allergies Allergy/AdvReac Type Severity Reaction Status Date / Time No Known Allergies Allergy Verified 11/16/24 08:07 Review of Systems Review of Systems ROS Unobtainable: unobtainable due to mental status Past Medical History Past Medical History CARDIAC: Positive Heart Murmur, Hypercholesterolemia and Hypertension GASTROINTESTINAL: Positive Gastrointestinal Disorders, Cirrhosis and Hemorrhoids REPRODUCTIVE: Positive Previous Pregnancies MUSCULOSKELETAL: Positive Musculoskeletal Disorders, Arthritis and Carpal Tunnel Syndrome ENDOCRINE: Positive Endocrine Disorders and Diabetes Mellitus Type 2 HEMATOLOGIC: Positive Anemia OTHER HISTORY: Positive Hospitalization Surgical History SURGICAL: Positive Ear Surgery and Section Social History SMOKING STATUS: Never smoker SUBSTANCE USE: does not use ED Exam General Limitations: Present no limitations General appearance: Present other (Lethargic, altered, responded minimally to painful stimuli) Head Head exam: Present atraumatic, normocephalic and normal inspection Eye Eye exam: Present normal appearance ENT ENT exam: Present normal exam, normal oropharynx and mucous membranes moist Neck Neck exam: Present normal inspection and full ROM Chest Chest inspection: Present normal inspection and symmetric chest wall rise Respiratory Respiratory exam: Present normal lung sounds bilaterally Cardiovascular Cardiovascular exam: Present regular rate, normal rhythm and normal heart sounds Abdominal Exam Abdominal exam: Present soft and normal bowel sounds Extremities Exam Extremities exam: Present full ROM and other (3+/5 upper and lower extremity strength, resisted gravity ) Neurological Exam Neurological exam: Present other (Lethargic, altered, GCS of 7, left facial droop noted, responded minimally to painful stimuli, 3+/5 upper and lower extremity strength, resisted gravity ) Skin Skin exam: Present warm, dry, intact and normal color Course Quality Measures Suspected type of Stroke: Non Acute Last known well (date): 02/16/25 Last known well (time): 21:00 Tenecteplase given: Reason(s) TPA not given: Outside the time window not given stroke Orders Category Date Time Status Admit to Inpatient Status Routine Admission 02/17/25 11:21 Active Patient Condition Routine Admission 02/17/25 11:21 Ordered Bedside Blood Glucose NOW Care 02/17/25 06:18 Completed Bedside Blood Glucose STAT Care 02/17/25 06:29 Completed COVID-19 Screening Questionnaire NOW Care 02/17/25 09:53 Active Metal Products Viewer NOW Care 02/17/25 06:18 Active Continuous Pulse Oximetry NOW Care 02/17/25 06:18 Completed DKA Protocol QSHIFT Care 02/17/25 06:29 Completed Decision to Admit X1 Care 02/17/25 09:53 Completed EKG (ED ONLY) *Do not use* NOW Care 02/17/25 06:11 Completed Pugh [Urinary Catheter] QS Care 02/17/25 06:06 Active Pugh to [place] Routine Care 02/17/25 06:06 Ordered In and Out Catheter NEEDED Care 02/17/25 06:18 Active Insert IV NOW Care 02/17/25 06:06 Active Insert NG / OG tube NOW Care 02/17/25 10:25 Active Intake and Output Routine Care 02/17/25 06:29 Ordered Intubation NOW Care 02/17/25 10:22 Completed NIH Stroke Scale now Care 02/17/25 06:18 Active NPO NOW Care 02/17/25 06:18 Active Notify provider NEEDED Care 02/17/25 06:29 Active Notify provider NEEDED Care 02/17/25 11:21 Active Nurse Swallow Screen x1 Care 02/17/25 06:18 Active Consult to Neurology / Tele-Neurology Routine Cons 02/17/25 06:18 Active Referral Registered Dietitian Routine Cons 02/17/25 06:[address] angio stroke protocol Stat Exams 02/17/25 06:[address] stroke protocol Stat Exams 02/17/25 06:18 Completed EKG (ED Only) Stat Exams 02/17/25 06:11 Draft US gall bladder Stat Exams 02/17/25 09:34 Taken XR chest 1V portable Stat Exams 02/17/25 06:18 Completed XR chest 1V post procedure Stat Exams 02/17/25 10:26 Completed ABG [Arterial Blood Gas] Stat Lab 02/17/25 10:23 Ordered Ammonia Stat Lab 02/17/25 09:52 Completed Arterial Blood Gas Stat Lab 02/17/25 06:45 Completed Beta Hydroxybutyrate Stat Lab 02/17/25 07:10 Completed Blood Culture (Lab) Stat Lab 02/17/25 06:20 Received CBC AM DRAW Lab 02/18/25 05:00 Ordered CBC AM DRAW Lab 02/19/25 05:00 Ordered CBC AM DRAW Lab 02/20/25 05:00 Ordered CBC Stat Lab 02/17/25 06:20 Completed COVID-19 Antigen (In-House) Stat Lab 02/17/25 10:56 Completed Comprehensive Metabolic Panel AM DRAW Lab 02/18/25 05:00 Ordered Comprehensive Metabolic Panel AM DRAW Lab 02/19/25 05:00 Ordered Comprehensive Metabolic Panel AM DRAW Lab 02/20/25 05:00 Ordered Comprehensive Metabolic Panel Stat Lab 02/17/25 07:10 Completed Drug Screen,Urine Stat Lab 02/17/25 06:57 Completed Glycohemoglobin w (eAG) Stat Lab 02/17/25 06:20 Completed HCG Titer if Positive Stat Lab 02/17/25 07:10 Completed Lactate (Lactic Acid) Stat Lab 02/17/25 07:10 Completed Lactic Acid, 3 HR Stat Lab 02/17/25 10:28 Completed Lipid Panel AM DRAW Lab 02/18/25 05:00 Ordered Magnesium AM DRAW Lab 02/18/25 05:00 Ordered Magnesium AM DRAW Lab 02/19/25 05:00 Ordered Magnesium AM DRAW Lab 02/20/25 05:00 Ordered Magnesium Stat Lab 02/17/25 07:10 Completed Partial Thromboplastin Time Stat Lab 02/17/25 07:10 Completed Phosphorous AM DRAW Lab 02/18/25 05:00 Ordered Phosphorous AM DRAW Lab 02/19/25 05:00 Ordered Phosphorous AM DRAW Lab 02/20/25 05:00 Ordered Phosphorous Stat Lab 02/17/25 07:10 Completed Prothrombin Time with INR Stat Lab 02/17/25 07:10 Completed Sputum Culture and Gram Stain Stat Lab 02/17/25 10:23 Ordered Thyroid Stimulating Hormone AM DRAW Lab 02/18/25 05:00 Ordered Troponin I Stat Lab 02/17/25 07:10 Completed Urinalysis, C/S if Indicated Stat Lab 02/17/25 06:57 Completed Acetaminophen Tab [Tylenol Tab] Med 02/17/25 11:20 Active 650 mg PO Q6H PRN Dextrose 5%-Lactated Ringers [D5-Lr] 1,000 ml Med 02/17/25 06:29 Discontinued Pot Chl Additive [KCl Additive] 20 meq IV 250 mls/hr Dextrose 5%-Lactated Ringers [D5-Lr] 1,000 ml Med 02/17/25 06:29 Discontinued Pot Chl Additive [KCl Additive] 40 meq IV 250 mls/hr Dextrose 5%-Lactated Ringers [D5-Lr] 1,000 ml Med 02/17/25 06:29 Discontinued IV 250 mls/hr Dextrose 50% Syr [D50w Syringe Abboject] Med 02/17/25 06:29 Discontinued 25 ml IV PRNMRX1 PRN Heparin Inj Med 02/17/25 14:00 Active 5,000 unit SC Q8HR Insulin Regular Med 02/17/25 06:29 Discontinued 5.9 unit IV X1 ONE Ketamine Inj Med 02/17/25 10:05 Discontinued 50 mg IM X1 ONE Ketamine Inj Med 02/17/25 10:08 Discontinued 50 mg IVP X1 ONE Labetalol* IV [Trandate* IV] Med 02/17/25 06:18 Active 10 mg IVP Q15M PRN Lactulose Syrup [Enulose Syrup] Med 02/17/25 11:20 Active 30 gm NG TID Magnesium Sulfate 2 GM Ivpb [Magnesium Sulfate Ivpb] Med 02/17/25 06:29 Discontinued 2 gm in 50 ml IV 25 mls/hr Norepinephrine/D5W 8mg/250ml [Levophed in D5W 8mg/250ml Med 02/17/25 10:09 Active ] 8 mg in 250 ml IV 0.05 mcg/kg/min Ondansetron Inj [Zofran Inj] Med 02/17/25 11:20 Active 4 mg IVP Q6H PRN POT PHOS 15 mMol in NS 250 ML [Pot Phos 15 mMol in NS Med 02/17/25 06:29 Discontinued 250 ml] 15 mmol in 250 ml IV PRN POTASSIUM CHL 10 mEq IVPB [Kcl Ivpb] Med 02/17/25 06:29 Discontinued 10 meq in 100 ml IV 100 mls/hr POTASSIUM CHL 10 mEq IVPB [Kcl Ivpb] Med 02/17/25 06:29 Discontinued 10 meq in 100 ml IV PRN Pantoprazole Inj [Protonix Inj] Med 02/18/25 09:00 Active 40 mg IVP QDAY Pre-Mixed [Pre-mixed Bag] 1 bag Med 02/17/25 06:29 Discontinued Insulin Reg 100 Units/100 ml [Myxredlin] 100 unit IV 0.1 unit/kg/hr Propofol 1,000 mg Ivpb [Diprivan Ivpb] Med 02/17/25 10:10 Active 1,000 mg in 100 ml IV 5 mcg/kg/min Ringers Lactated 1000 ml [Lactated Ringers] 1,000 ml Med 02/17/25 06:29 Discontinued Pot Chl Additive [KCl Additive] 20 meq IV 250 mls/hr Ringers Lactated 1000 ml [Lactated Ringers] 1,000 ml Med 02/17/25 06:29 Discontinued Pot Chl Additive [KCl Additive] 40 meq IV 250 mls/hr Ringers Lactated 1000 ml [Lactated Ringers] 1,000 ml Med 02/17/25 06:29 Discontinued IV 250 mls/hr Rocuronium Inj [Zemuron Inj] Med 02/17/25 10:05 Discontinued 50 mg IVP X1 ONE Sodium Bicarb 8.4% SYR Med 02/17/25 06:29 Discontinued 50 ml IV Q4HR PRN Sodium Chloride 0.9% 250 ml [Ns] 250 ml Med 02/17/25 06:29 Discontinued Sod Phos Additive [NaPhos Additive] 15 mmol IV 62.5 mls/hr Sodium Chloride Rt Brittany 10% [NS Rt Brittany 10%] Med 02/17/25 10:22 Discontinued 5 ml INH X1 ONE cefTRIAXone [Rocephin] 2 gm Med 02/17/25 06:32 Discontinued SODIUM CHLORIDE 0.9% (Popper) [Ns 0.9% (P)] 50 ml IV X1 Code Status Routine Oth 02/17/25 11:20 Ordered Mechanical [Volume Ventilator] Stat RT 02/17/25 Active Oxygen Delivery NOW RT 02/17/25 06:18 Active Sputum Induction PRN RT 02/17/25 10:30 Ordered Vital Signs Vital signs: Vital Signs Pulse Rate 70 02/17/25 06:03 Respiratory Rate 23 H 02/17/25 06:03 Blood Pressure 94/54 L 02/17/25 06:03 Pulse Oximetry (%) 100 02/17/25 06:03 Altered Mental Status MDM Narrative MDM Narrative:: IMarlena, am scribing for and in the presence of Dr. Kirkpatrick. I spoke with teleneurologist Dr. Grijalva. States patient is not a TNK candidate, LKW > 4.5 hours. I spoke with hospitalist team for admission. Hospitalist team has evaluated the patient and state they will consult with ICU for admission. Patient was intubated by resident Dr. Kearney, please refer to his procedure note. I was at bedside and pushed the Rocuronium and Ketamine. Patient data External records reviewed:: [facility] previous records and EMS form Clinical information provided by:: EMS Social determinants that could affect healthcare access:: none Patient has the following chronic illnesses:: HFpEF (65% 07/2024), hypertension, diabetes, decompensated cirrhosis with ascites, hyperlipidemia How is presenting disease/condition affected by chronic disease/condition?: exacerbated by Evaluation data The following diagnostics were reviewed and interpreted by me:: lab results, radiology exam(s) and EKG tracing(s) (EKG @ 06:13 AM, interpreted by me, normal sinus rhythm, rate 63, right bundle branch block, left anterior fascicular block, no STEMI. ) Lab and/or radiology exams considered but not ordered:: None Interpretation Summary: Ordering Physician: Gavin Kirkpatrick MD Date of Service: 02/17/25 Procedure(s): XR chest 1V portable Accession Number(s): [id number] cc: Gavin Kirkpatrick MD; Dion Mir MD; Tiki Diaz MD~ EXAMINATION: AP chest single view TECHNIQUE: AP portable semiupright chest single view Date and time: February 17, 2025, 0655 hours, comparison September 07, 2024 INDICATIONS: Stroke alert this morning FINDINGS: Mild enlargement left ventricle Moderate vascular congestion. No aspiration pneumonia. Prominent osteopenia IMPRESSION: Moderate vascular congestion. No aspiration pneumonia Dictated By: Dion Mir MD Signed By: <Electronically signed by Dion Mir MD in OV> 02/17/25 0725 Ordering Physician: Gavin Kirkpatrick MD Date of Service: 02/17/25 Procedure(s): CT stroke protocol Accession Number(s): [id number] cc: Gavin Kirkpatrick MD; Dion Mir MD; Tiki Diaz MD~ Examination: CT brain head without contrast. 2-D sagittal coronal reconstructions Date and time of exam: February 17, 2002 0629 hours INDICATIONS: Stroke alert onset focal neurologic deficit today CTDI: vol (mGy): 46.1 DLP: (mGycm): 887 Technique: Multiple CT axial sections of the brain have been obtained, 5 mm slice thickness. Contrast has not been administered. 2-D sagittal, coronal reconstructions have been obtained Low dose protocols were performed. One or more of the following dose reduction techniques were used; automated exposure control, adjustment of the mA and/or KV according to patient size, use of iterative reconstruction technique. Findings: No significant ventricular enlargement. Intra-axial or extra-axial hemorrhage density is not seen. No mass effect or midline shift Basal cisterns are not remarkable. Fourth ventricle is midline. Cranial vault intact. Impression: Negative for acute hemorrhage, mass effect or midline shift Dictated By: Dion Mir MD Signed By: <Electronically signed by Dion Mir MD in OV> 02/17/25 0635 Ordering Physician: Gavin Kirkpatrick MD Date of Service: 02/17/25 Procedure(s): CT angio stroke protocol Accession Number(s): [id number] cc: Gavin Kirkpatrick MD; Dion Mir MD; Tiki Diaz MD~ Examination: CTA carotids with intravenous contrast CTA brain, head with intravenous contrast. 2-D sagittal, coronal reconstructions. 3-D reconstructions. Exam date and time: February 17, 2025, 630 hours INDICATIONS: Stroke alert, onset focal neurologic deficit left-sided facial numbness unresponsive 8 hours CTDI: vol (mGy) 17.32 DLP: (mGycm) 445 Technique: Multiple CTA axial brain, head carotid images post intravenous contrast injection 60 cc, [id number]. 2-D sagittal, coronal reconstructions. 3-D reconstructions, 3-D post processing including vascular maximum intensity projection images. Low dose protocols were performed. One or more of the following dose reduction techniques were used; automated exposure control, adjustment of the mA and/or KV according to patient size, use of iterative reconstruction technique. Findings: No significant common carotid carotid bifurcation or internal carotid artery stenoses Dominant left vertebral artery in the neck with no critical stenoses Intracranial vertebral arteries basilar artery and posterior cerebral branches fill with no large vessel occlusions Petrous juxtasellar portions internal carotid arteries fill M1 segments middle cerebral arteries middle cerebral artery trifurcation vessels anterior cerebral arteries fill with no large vessel occlusions IMPRESSION: No significant neck arterial stenoses No cerebral large vessel arterial occlusions or thrombus Dictated By: Dion Mir MD Signed By: <Electronically signed by Dion Mir MD in OV> 02/17/25 0729 Ordering Physician: Leyda Kearney MD Date of Service: 02/17/25 Procedure(s): XR chest 1V post procedure Accession Number(s): [id number] cc: Dion Mir MD; Tiki Diaz MD; Leyda Kearney MD~ EXAMINATION: AP chest single view TECHNIQUE: AP portable upright chest single view Date and time: February 17, 2025, 10:50 a.m. INDICATIONS: Hypoxic respiratory failure today, post intubation post orogastric tube placement FINDINGS: Mild enlargement left ventricle Prominent vascular congestion Endotracheal tube tip 3 cm above carmen Orogastric sidehole at the GE junction Mild elevation left hemidiaphragm Prominent osteopenia IMPRESSION: Endotracheal tube tip 3 cm above carmen Prominent vascular congestion Advance the orogastric tube 5 cm Dictated By: Dion Mir MD Signed By: <Electronically signed by Dion Mir MD in OV> 02/17/25 1112 Medications / Prescriptions Medications or Prescriptions considered but not ordered:: None Medication administrations:: Medication Administration History Acetaminophen (Acetaminophen 325 Mg Tablet) 650 mg PO Q6H PRN PRN Reason: Fever >101.5 Stop: 03/19/25 11:19 Dextrose (Dextrose 50%-Water Inj 50 Ml Syringe) 25 ml IV Q15MIN PRN PRN Reason: BG 50-70 responsive npo pt Stop: 03/19/25 11:23 Dextrose (Dextrose 50%-Water Inj 50 Ml Syringe) 50 ml IV Q15MIN PRN PRN Reason: BG <50 OR BG <70 & pt unresponsive Stop: 03/19/25 11:23 Glucagon (Glucagon Inj 1 Mg Vial) 1 mg IM Q15MIN PRN PRN Reason: BG <70, and no IV access Heparin Sodium (Porcine) (Heparin Sod Inj 5000 Unit/Ml Vial) 5,000 unit SC Q8HR WAYNE Stop: 03/03/25 13:59 Norepinephrine/Dextrose (Levophed In D5w 8mg/250ml) 8 mg in 250 mls @ 5.484 mls/hr IV .Q24H PRN; Protocol PRN Reason: PER PROTOCOL Stop: 03/19/25 10:08 Propofol (Diprivan Ivpb) 1,000 mg in 100 mls @ 1.755 mls/hr IV .Q24H PRN; Protocol PRN Reason: PER PROTOCOL Stop: 03/19/25 10:09 Ceftriaxone Sodium/Dextrose (Rocephin/D5w 1gm Iv Premix) 1 gm in 50 mls @ 100 mls/hr IV QDAY WAYNE Stop: 02/25/25 08:59 Octreotide Acetate 1,000 mcg/ (Sodium Chloride) 102 mls @ 5.1 mls/hr IV .Q20H WAYNE; Protocol Stop: 02/22/25 11:32 Octreotide Acetate 1,000 mcg/ (Sodium Chloride) 102 mls @ 5.1 mls/hr IV .Q20H ONE; Protocol Stop: 02/18/25 07:31 Potassium Chloride (Kcl Ivpb) 10 meq in 100 mls @ 100 mls/hr IV Q1H WAYNE Stop: 02/17/25 15:34 Last Admin: 02/17/25 11:48 Dose: 100 mls/hr Documented By: SHAE Magnesium Sulfate (Magnesium Sulfate Ivpb) 2 gm in 50 mls @ 25 mls/hr IV X1 ONE Stop: 02/17/25 13:35 Last Admin: 02/17/25 11:48 Dose: 25 mls/hr Documented By: SHAE Insulin Human Lispro (Insulin Lispro (Admelog) 1 Unit/0.01 Ml Unit) 0 unit SC Q6HR WAYNE; Protocol Stop: 03/19/25 11:59 Labetalol HCl (Labetalol Inj 5 Mg/Ml Vial 4 Ml) 10 mg IVP Q15M PRN PRN Reason: hypertension Lactulose (Lactulose Syrup 20 Gm/30 Ml Udc) 30 gm NG TID WAYNE; Protocol Stop: 03/19/25 11:19 Last Admin: 02/17/25 11:36 Dose: 30 gm Documented By: SHAE Comments: MED GIVEN VIA OG TUBE Ondansetron HCl (Ondansetron Inj 2 Mg/Ml Inj 2 Ml) 4 mg IVP Q6H PRN; Protocol PRN Reason: NAUSEA OR VOMITING Stop: 03/19/25 11:19 Pantoprazole Sodium (Pantoprazole Inj 40 Mg Vial) 40 mg IVP QDAY [facility] Stop: 03/20/25 08:59 Rifaximin (Rifaximin 550 Mg Tablet) 550 mg NG BID [facility] Stop: 02/24/25 11:29 Discontinued Medications Dextrose (Dextrose 50%-Water Inj 50 Ml Syringe) 25 ml IV PRNMRX1 PRN PRN Reason: Blood Sugar - Low Potassium Chloride 20 meq/ (Dextrose/Lactated Ringer's) 1,010 mls @ 250 mls/hr IV .Q4H3M PRN PRN Reason: K LEVEL 3.3 TO 5.3 mM/L Stop: 03/19/25 06:28 Potassium Chloride 40 meq/ (Dextrose/Lactated Ringer's) 1,020 mls @ 250 mls/hr IV .Q4H5M PRN PRN Reason: K LEVEL < 3.3mM/L Stop: 03/19/25 06:28 Potassium Chloride (Kcl Ivpb) 10 meq in 100 mls @ 100 mls/hr IV .Q1H PRN PRN Reason: IF POTASSIUM LESS THAN 3.3 Stop: 03/19/25 06:28 Magnesium Sulfate (Magnesium Sulfate Ivpb) 2 gm in 50 mls @ 25 mls/hr IV .Q2H PRN PRN Reason: PER DKA PROTOCOL Stop: 03/19/25 06:28 Insulin Human Regular 100 unit (/ IV Miscellaneous Supplies) 100 mls @ 5.85 mls/hr IV .Q17H6M PRN; Protocol PRN Reason: PER PROTOCOL Stop: 03/19/25 06:28 Dextrose/Lactated Ringer's (D5-Lr) 1,000 mls @ 250 mls/hr IV .Q4H PRN PRN Reason: PER PROTOCOL Stop: 03/19/25 06:28 Lactated Ringer's (Lactated Ringers) 1,000 mls @ 250 mls/hr IV .Q4H PRN PRN Reason: PER PROTOCOL Stop: 02/18/25 06:28 Potassium Chloride 20 meq/ (Lactated Ringer's) 1,010 mls @ 250 mls/hr IV .Q4H3M PRN PRN Reason: K LEVEL 3.3 TO 5.3mM/L Stop: 03/19/25 06:28 Potassium Chloride 40 meq/ (Lactated Ringer's) 1,020 mls @ 250 mls/hr IV .Q4H5M PRN PRN Reason: K LEVEL < 3.3 mM/L Stop: 03/19/25 06:28 Potassium Chloride (Kcl Ivpb) 10 meq in 100 mls @ 50 mls/hr IV PRN PRN PRN Reason: K LEVEL 3.3 to 5.3 & BG > 200 Stop: 03/19/25 06:28 Potassium Phosphate (Pot Phos 15 Mmol In Ns 250 Ml) 15 mmol in 250 mls @ 62.5 mls/hr IV PRN PRN PRN Reason: Phosphate <= 1mg/dL Stop: 03/19/25 06:28 Sodium Phosphate 15 mmol/ (Sodium Chloride) 255 mls @ 62.5 mls/hr IV .Q4H5M PRN PRN Reason: Phosphate <= 1mg/dL and K> than 5.3 Stop: 03/19/25 06:28 Ceftriaxone Sodium 2 gm/ (Sodium Chloride) 50 mls @ 100 mls/hr IV X1 ONE Stop: 02/17/25 07:01 Last Infusion: 02/17/25 10:34 Dose: Infused Documented By: Admin: 02/17/25 07:40 Dose: 100 mls/hr Documented By: ED Insulin Human Regular (Insulin Hum Regular 1 Unit/0.01 Ml (Per Unit)) 5.9 unit 0.1 unit/kg (5.9 unit) IV X1 ONE Stop: 02/17/25 06:30 Last Admin: 02/17/25 07:27 Dose: 5.9 unit Documented By: ED Co-signed By: DO Ketamine HCl (Ketamine 50 Mg/Ml Vial 10 Ml) 50 mg IM X1 ONE Stop: 02/17/25 10:06 Last Admin: 02/17/25 10:10 Dose: Not Given Documented By: DB Non-Admin Reason: Discontinued Ketamine HCl (Ketamine 50 Mg/Ml Vial 10 Ml) 50 mg IVP X1 ONE Stop: 02/17/25 10:09 Last Admin: 02/17/25 10:23 Dose: 50 mg Documented By: DB Comments: MED GIVEN BY DR. KIRKPATRICK Rocuronium [place] (Rocuronium Inj 10 Mg/Ml Vial 10 Ml) 50 mg IVP X1 ONE Stop: 02/17/25 10:06 Last Admin: 02/17/25 10:23 Dose: 50 mg Documented By: SHAE Co-signed By: ED Sodium Bicarbonate (Sodium Bicarb Inj 8.4% Syr 50 Ml Syringe) 50 ml IV Q4HR PRN PRN Reason: For ph <= to 7.0 Stop: 03/19/25 06:28 Sodium Chloride (Sodium Chloride Rt 10% 15 Ml Nebu) 5 ml INH X1 ONE Stop: 02/17/25 10:23 See above Consultations Consultation(s) initiated? (list below): Yes Consultation #1 (Physician, Specialty, Details): See MDM Diagnosis Most likely diagnosis given after review of the tests above:: AMS hepatic enceophalopathy Dehdrtion Hyperglycemia Admission Indicated Admission indicated?: indicated Admission Request Was there a request for admission?: Yes Admission Attestation Admission request attestation: Discussed case with [] from Hospitalist service regarding admission. Discussed patients ED course, exam findings, labs, and radiology results. The Hospitalist [agrees,declines] to accept the patient for admission. Disposition Plan Disposition Plan: Admit Critical Care Time Critical Care Time Critical Care Time: Yes Total Critical Care Time (min.): 35 Attestation: The high probability of sudden, clinically significant deterioration in the patient's condition required the highest level of my preparedness to intervene urgently. The services I provided to this patient were to treat and/or prevent clinically significant deterioration. Services included the following: chart data review, reviewing nursing notes and/or old charts, documentation time, market intelligence consultant collaboration regarding findings and treatment options, medication orders and management, direct patient care, vital sign assessments and ordering, interpreting and reviewing diagnostic studies and lab tests. Aggregate critical care time includes only time during which I was engaged in work directly related to the patient's care, as described above, whether at bedside or elsewhere in the Emergency Department. It did not include time spent performing other reported procedures or the services of residents, students, nurses or physician assistants. Discharge Plan Plan Patient Disposition: Admit Acute Care w/in Hospital Problem List Clinical Impression: Altered mental status, Acute hepatic encephalopathy, Dehydration, Hyperglycemia
[2025-02-17] MEDS: OCTREOTIDE ACET INJ 1,000 MCG in SODIUM CHLORIDE 0.9% 100 ML 5.1 MCG IV (12:25)
--- NOTE | 2025-02-17 12:35 | PD.RESEVENT ---
Documentation for date of: 02/17/25 Event Note Event Note: 64-year-old female with past medical history of insulin-dependent diabetes mellitus, cryptogenic decompensated cirrhosis, HFpEF estimated EF 65%, moderate aortic stenosis and history of fatty liver disease of who presented to [facility] ([facility] emergency department with a chief complaint of altered mental status today. Received a call this morning from ER physician Dr. Hernandez, regarding admission, stroke alert was initiated on the patient earlier this morning, underlying metabolic etiology was suspected per teleneurologist. Ammonia level was pending, per Dr. Hernandez patient's GCS 7 on presentation however on my assessment at bedside patient's GCS 3, tongue protruding out of mouth patient not responsive to sternal rub, not responsive to pain, no response in extremities. Assessment done again at bedside with ED physician Dr. Hernandez and decision was made to intubate the patient for airway protection due to severe acute encephalopathy. Timeout performed, patient was given ketamine and rocuronium for RSI, patient tolerated procedure well, postprocedure RASS goal 0, sedation if needed. Patient placed on 6 cc/kg lung volume protection strategy with respiratory rate 16 which was increased to 18 later to achieve adequate minute ventilation, PEEP 5, FiO2 0.40, postintubation x-ray shows tube in satisfactory position. Patient signed out to ICU team. Will be admitted to intensive care unit. Case discussed with Attending Physician Dr. Maria T Brothers MD Internal Medicine PGY-2 Disclaimer: This note was dictated by speech recognition. Minor errors in application development team lead may be present due to voice recognition software.
--- NOTE | 2025-02-17 12:35 | PD.RESPROC ---
PROCEDURES: Procedure Date / Time 02/17/25 1235 Procedural Time Out Time out performed: Yes Intubation Indication(s): inability to protect airway Informed consent obtained: obtained from surrogate decision maker () Time out done, and the following verified: correct patient, side and site, procedure, patient position and implants and/or equipment Sedative: ketamine Mg given: 50 Paralytic: rocuronium Mg given: 50 Laryngoscope: fiber optic video scope ET tube size: 7 ET tube uncuffed: Yes Tube secured depth (cm): 22 Tube secured location: lips Tube placement confirmation: visualized tube passing through cords, equal breath sounds bilaterally, no breath sounds over epigastrium and confirmation by capnometry Patient tolerated procedure: well EBL(ml): 0 Intubation complications: none Additional comments: Time out performed, the patient was on a child monitor including continuous pulse oximetry. The patient was placed in the supine position. He was bagged and preoxygenated to 100%. Rapid Sequence Intubation was conducted. The patient received 50 mg of ketamine for induction and 50 mg of rocuronium for adequate paralysis. Using a fiber optic video laryngoscope and a size 7.0 endotracheal tube with stylet, the patient was intubated on the first attempt. The stylet was removed and cuff balloon was inflated. Appropriate endotracheal tube position was confirmed by direct visualization of vocal cord passage, fogging of the tube, CO2 colormetric indicator and symmetric breath sounds. The tube was secured at 22 cm at the gum. Post intubation chest x-ray is pending at this time. Procedure completed under the supervision of attending ED physician Dr. Hernandez. Leyda Kearney MD Internal Medicine PGY-2 Disclaimer: This note was dictated by speech recognition. Minor errors in repair service clerk may be present due to voice recognition software.
--- NOTE | 2025-02-17 12:51 | PC.NURSE ---
Informed Dr. Awan that pt. is starting to move, Dr. Awan states she will come and see pt.
--- NOTE | 2025-02-17 13:10 | PC.NURSE ---
Dr. Awan, Dr. Huber, Dr. Campos all bedside, pt. moving, coughing and biting tube. Dr. Awan gave new orders, carried out.
[2025-02-17] MEDS: PROPOFOL 1,000 MG IVPB 1,000 MG/100 ML VIAL 3.51 MG IV (13:11)
[2025-02-17 13:22] LABS: Base Excess 5 (-3-3); HCO3 29 mEq/L (20-26); Inspired Oxygen, FIO2 50 %; O2 Saturation 101 % (91-98); PCO2 38 mmHg (32.0-48.0); PO2 171 mmHg (83-108); pH, Arterial 7.49 (7.35-7.45)
[2025-02-17 13:25] LABS: Allen Test Performed/OK; Puncture Site Left Radial
--- NOTE | 2025-02-17 15:14 | ESHP_ITS ---
<Statement entered by Devin Awan MD - 02/17/25 18:49> 64-year-old female with significant past medical history of insulin-dependent diabetes mellitus, cirrhosis, cause unknown, HFpEF, moderate aortic stenosis, history of esophageal varices brought to the hospital by her in view of altered mental status. He reported that the last well-known time is around 1:45 AM and when he tried to wake her up around 5:45 AM she is not responsive but able to move her all extremities for which she brought her to the hospital. In the ED, patient noted to have GCS of 3 for which she was intubated. Vitals are stable. Noted to have blood glucose of 435.Noted to have ammonia level of 251. Labs reviewed did not show any significant abnormality, bilirubin and creatinine is at her baseline. Patient is admitted into the ICU in view of suspected hepatic encephalopathy. Patient is started on octreotide drip, ceftriaxone in view of previous history of varices and suspected occult GI bleed. Started on lactulose and rifaximin for hepatic encephalopathy. Will try to wean her off sedation tomorrow and assess her mentation I have personally seen and examined the patient, agree with residents assessment and plan Patient plan of care was discussed with the attending physician, Dr. Jez Awan, PGY2 Documentation for date of: 02/17/25 HPI History of Present Illness History of present illness: Patient is a 64 year old female with PMH IDDM 2, decompensated cirrhosis of unknown etiology, HFpEF (EF 65%), moderate aortic stenosis, hx of esophageal varicies who presents to the ED on 02/17 for altered mental status. History was obtained from as patient was intubated on exam. Per , patient was responsive around 1:45 AM after glucose monitor alarm went off. However when attempted to wake her up around 5:45AM this morning patient was unresponsive to verbal cues but withdrew from pain. called ambulance, GCS 7 per EMS. No history of seizures or strokes. At baseline, patient ambulates with walker but still has some balance issues, AOx3. Denies recent fever, chills, cough, or diarrhea. Denies recent illnesses. Upon ED arrival, GCS decreased to 3. Per nurse, patient was noted to have left sided weakness and partial left facial droop (however notes this is normal for her when she is asleep). Patient was intubated. BP 94/54, RR 23. CBC showed WBC 2.8, hemoglobin 9.0, platelet 47,000, appear to be baseline for her as she has history of hypersplenism. Labs were remarkable for glucose 435, BHB 0.2, lactic acid 2.5-> 1.9, ammonia 251, anion gap and bicarb within normal limits. Given CFX x1 and insulin regular 5.[address] head and CTA were negative for acute changes. After sedation and paralytic wore off s/p intubation, patient became agitated and was unable to follow commands, was started on propofol and fentanyl drip for sedation. Was noted to be moving all 4 extremities. Admitted to ICU for acute encephalopathy likely secondary to hepatic encephalopathy s/p intubation due to inability to protect airway. Past Medical History: as above Family History: Liver cancer in father and sister. Mother had CAD status post stents in her 70s. Surgical History: C section, bilateral carpal tunnel, right shoulder sx, right knee arthroplasty Social History: Denies history of smoking, denies current alcohol use, denies recreational drug use Current Medications: Spironolactone 50 mg daily, carvedilol 3.125 mg twice daily, simvastatin 10 mg 2 tablets nightly, Bumex 1 mg 2 tablets daily, ferrous sulfate 325 TID, insulin lantus 35 units, lispro 2 units with meals (Source: ) Allergies: No known drug allergies Exam Vital Signs Temp Pulse Resp BP Pulse Ox O2 Del Method FiO2 98.0 F 81 14 133/88 H 100 Room Air 40 02/17/25 14:27 02/17/25 14:02/17/25 14:27 02/17/25 14:02/17/25 14:02/17/25 14:02/17/25 13:25 Narrative Exam Physical Exam General: Intubated and sedated. HEENT: Normocephalic, atraumatic, mucous membranes moist. Heart: Regular rate and rhythm, normal S1 and S2. 4/5 systolic murmur radiating to carotids. Lungs: Clear to auscultation with no wheezing or crackles. Abdomen: Soft, obese, nondistended, positive bowel sounds. Mid abdominal vertical scar. Neurologic: Unable to assess due to sedation. Patient briefly able to move all 4 extremities when sedation s/p intubation wore off. Extremities: No edema. Pulses intact bilaterally. Skin: No rash or ecchymoses. Results: Labs 02/18/25 04:50 02/18/25 04:50 Labs: Short CBC 02/17/25 Range/Units 06:20 WBC 2.8 L (3.6-11.0) Thou/mm3 Hgb 9.0 L (12.0-16.0) g/dL Hct 24.4 L (36.0-46.0) % Plt Count 47 L (140-440) Thou/mm3 BMP 02/17/25 07:10 Sodium 135 L Potassium 3.8 Chloride 96 L Carbon Dioxide 28.5 BUN 39 H Creatinine 1.8 H Glucose 435 H* Calcium 8.8 Cardiac Enzymes 02/17/25 Range/Units 07:10 Troponin I < 0.020 (0.0-0.045) ng/mL Liver Function 02/17/25 Range/Units 07:10 Total Bilirubin 2.2 H (0.3-1.2) mg/dL AST 39 H (0-34) U/L ALT 20 (10-49) U/L Alkaline Phosphatase 193 H (46-116) U/L Albumin 3.1 L (3.4-4.8) gm/dL Urine 02/17/25 Range/Units 06:57 Urine Color Yellow (Lt Yel-Yel) Urine Clarity Clear (Clear/Hazy) Urine pH 6.0 (5.0-7.0) Ur Specific [place] 1.015 (1.001-1.035) Urine Protein Negative (Neg - Trace) Urine Glucose (UA) 4+ A (Negative) ABG Interpretation ABG results: 02/17/25 02/17/25 06:45 13:12 ABG pH 7.52 H 7.49 H ABG pCO2 36 38 ABG pO2 88 171 H D ABG HCO3 30 H 29 H ABG O2 Saturation 99 H 101 H ABG Base Excess 6 H 5 H Quality Measures Quality Measures stroke Suspected type of Stroke: Non Acute Last known well (date): 02/16/25 Last known well (time): 21:00 Tenecteplase given: Reason(s) Tenecteplase not given: Outside the time window not given Rehab services: PT evaluation ordered (currently sedated, will order at a later time) VTE Prophylaxis: pharmaceutical Antithrombotic by day 2:: not indicated (describe) (low suspicion for stroke) Statin ordered: not ordered Anticoagulation ordered for A-fib or flutter (current or hx): not indicated Advance care planning discussed with:: spouse Medications Home Medications and Allergies Home Medications ?Medication ?Instructions ?Recorded ?Confirmed ?Type simvastatin 10 mg tablet (Zocor) 10 mg PO HS #0 tabs 0 12/07/15 11/16/24 History folic acid 1 mg tablet 1 mg PO QDAY 08/14/24 History albuterol sulfate 90 mcg/actuation 2 puff inhalation . COMPLEX sob 09/08/24 11/16/24 History aerosol inhaler bumetanide 1 mg tablet 1 mg PO QDAY 11/16/24 History carvedilol 3.125 mg tablet 3.125 mg PO BID 11/16/24 History hydrocodone 5 mg-acetaminophen 325 0.5 tab PO TID PRN pain 11/16/24 11/16/24 History mg tablet spironolactone 50 mg tablet 50 mg PO DAILY 11/16/24 History Allergies Allergy/AdvReac Type Severity Reaction Status Date / Time No Known Allergies Allergy Verified 11/16/24 08:07 Visit Medications Acetaminophen (Acetaminophen 325 Mg Tablet) 650 mg PO Q6H PRN PRN Reason: Fever >101.5 Stop: 03/19/25 11:19 Dextrose (Dextrose 50%-Water Inj 50 Ml Syringe) 25 ml IV Q15MIN PRN PRN Reason: BG 50-70 responsive npo pt Stop: 03/19/25 11:23 Dextrose (Dextrose 50%-Water Inj 50 Ml Syringe) 50 ml IV Q15MIN PRN PRN Reason: BG <50 OR BG <70 & pt unresponsive Stop: 03/19/25 11:23 Glucagon (Glucagon Inj 1 Mg Vial) 1 mg IM Q15MIN PRN PRN Reason: BG <70, and no IV access Heparin Sodium (Porcine) (Heparin Sod Inj 5000 Unit/Ml Vial) 5,000 unit SC Q8HR WAYNE Stop: 03/03/25 13:59 Norepinephrine/Dextrose (Levophed In D5w 8mg/250ml) 8 mg in 250 mls @ 5.484 mls/hr IV .Q24H PRN; Protocol PRN Reason: PER PROTOCOL Stop: 03/19/25 10:08 Propofol (Diprivan Ivpb) 1,000 mg in 100 mls @ 1.755 mls/hr IV .Q24H PRN; Protocol PRN Reason: PER PROTOCOL Stop: 03/19/25 10:09 Last Titration: 02/17/25 15:00 Dose: 15 mcg/kg/min, 5.265 mls/hr Ceftriaxone Sodium/Dextrose (Rocephin/D5w 1gm Iv Premix) 1 gm in 50 mls @ 100 mls/hr IV QDAY WAYNE Stop: 02/25/25 08:59 Octreotide Acetate 1,000 mcg/ (Sodium Chloride) 102 mls @ 5.1 mls/hr IV .Q20H WAYNE; Protocol Stop: 03/20/25 07:59 Octreotide Acetate 1,000 mcg/ (Sodium Chloride) 102 mls @ 5.1 mls/hr IV .Q20H ONE; Protocol Stop: 02/18/25 07:31 Last Admin: 02/17/25 12:25 Dose: 50 mcg/hr, 5.1 mls/hr Potassium Chloride (Kcl Ivpb) 10 meq in 100 mls @ 100 mls/hr IV Q1H WAYNE Stop: 02/17/25 15:34 Last Admin: 02/17/25 13:10 Dose: 100 mls/hr Fentanyl Citrate (Sublimaze Inj 2,500 Mcg/250 Ml Bag) 2,500 mcg in 250 mls @ 2.5 mls/hr IV .Q24H PRN; Protocol PRN Reason: PER PROTOCOL Stop: 02/22/25 13:19 Insulin Human Lispro (Insulin Lispro (Admelog) 1 Unit/0.01 Ml Unit) 0 unit SC Q6HR WAYNE; Protocol Stop: 03/19/25 11:59 Last Admin: 02/17/25 12:21 Dose: Not Given Labetalol HCl (Labetalol Inj 5 Mg/Ml Vial 4 Ml) 10 mg IVP Q15M PRN PRN Reason: hypertension Lactulose (Lactulose Syrup 20 Gm/30 Ml Udc) 30 gm NG Q6HR WAYNE; Protocol Stop: 03/19/25 13:29 Ondansetron HCl (Ondansetron Inj 2 Mg/Ml Inj 2 Ml) 4 mg IVP Q6H PRN; Protocol PRN Reason: NAUSEA OR VOMITING Stop: 03/19/25 11:19 Pantoprazole Sodium (Pantoprazole Inj 40 Mg Vial) 40 mg IVP QDAY [facility] Stop: 03/20/25 08:59 Rifaximin (Rifaximin 550 Mg Tablet) 550 mg NG BID [facility] Stop: 02/24/25 11:29 Last Admin: 02/17/25 12:46 Dose: 550 mg Discontinued Medications Dextrose (Dextrose 50%-Water Inj 50 Ml Syringe) 25 ml IV [id number] PRN PRN Reason: Blood Sugar - Low Potassium Chloride 20 meq/ (Dextrose/Lactated Ringer's) 1,010 mls @ 250 mls/hr IV .Q4H3M PRN PRN Reason: K LEVEL 3.3 TO 5.3 mM/L Stop: 03/19/25 06:28 Potassium Chloride 40 meq/ (Dextrose/Lactated Ringer's) 1,020 mls @ 250 mls/hr IV .Q4H5M PRN PRN Reason: K LEVEL < 3.3mM/L Stop: 03/19/25 06:28 Potassium Chloride (Kcl Ivpb) 10 meq in 100 mls @ 100 mls/hr IV .Q1H PRN PRN Reason: IF POTASSIUM LESS THAN 3.3 Stop: 03/19/25 06:28 Magnesium Sulfate (Magnesium Sulfate Ivpb) 2 gm in 50 mls @ 25 mls/hr IV .Q2H PRN PRN Reason: PER DKA PROTOCOL Stop: 03/19/25 06:28 Insulin Human Regular 100 unit (/ IV Miscellaneous Supplies) 100 mls @ 5.85 mls/hr IV .Q17H6M PRN; Protocol PRN Reason: PER PROTOCOL Stop: 03/19/25 06:28 Dextrose/Lactated Ringer's (D5-Lr) 1,000 mls @ 250 mls/hr IV .Q4H PRN PRN Reason: PER PROTOCOL Stop: 03/19/25 06:28 Lactated Ringer's (Lactated Ringers) 1,000 mls @ 250 mls/hr IV .Q4H PRN PRN Reason: PER PROTOCOL Stop: 02/18/25 06:28 Potassium Chloride 20 meq/ (Lactated Ringer's) 1,010 mls @ 250 mls/hr IV .Q4H3M PRN PRN Reason: K LEVEL 3.3 TO 5.3mM/L Stop: 03/19/25 06:28 Potassium Chloride 40 meq/ (Lactated Ringer's) 1,020 mls @ 250 mls/hr IV .Q4H5M PRN PRN Reason: K LEVEL < 3.3 mM/L Stop: 03/19/25 06:28 Potassium Chloride (Kcl Ivpb) 10 meq in 100 mls @ 50 mls/hr IV PRN PRN PRN Reason: K LEVEL 3.3 to 5.3 & BG > 200 Stop: 03/19/25 06:28 Potassium Phosphate (Pot Phos 15 Mmol In Ns 250 Ml) 15 mmol in 250 mls @ 62.5 mls/hr IV PRN PRN PRN Reason: Phosphate <= 1mg/dL Stop: 03/19/25 06:28 Sodium Phosphate 15 mmol/ (Sodium Chloride) 255 mls @ 62.5 mls/hr IV .Q4H5M PRN PRN Reason: Phosphate <= 1mg/dL and K> than 5.3 Stop: 03/19/25 06:28 Ceftriaxone Sodium 2 gm/ (Sodium Chloride) 50 mls @ 100 mls/hr IV X1 ONE Stop: 02/17/25 07:01 Last Infusion: 02/17/25 10:34 Dose: Infused Magnesium Sulfate (Magnesium Sulfate Ivpb) 2 gm in 50 mls @ 25 mls/hr IV X1 ONE Stop: 02/17/25 13:35 Last Admin: 02/17/25 11:48 Dose: 25 mls/hr Insulin Human Regular (Insulin Hum Regular 1 Unit/0.01 Ml (Per Unit)) 5.9 unit 0.1 unit/kg (5.9 unit) IV X1 ONE Stop: 02/17/25 06:30 Last Admin: 02/17/25 07:27 Dose: 5.9 unit Ketamine HCl (Ketamine 50 Mg/Ml Vial 10 Ml) 50 mg IM X1 ONE Stop: 02/17/25 10:06 Last Admin: 02/17/25 10:10 Dose: Not Given Ketamine HCl (Ketamine 50 Mg/Ml Vial 10 Ml) 50 mg IVP X1 ONE Stop: 02/17/25 10:09 Last Admin: 02/17/25 10:23 Dose: 50 mg Lactulose (Lactulose Syrup 20 Gm/30 Ml Udc) 30 gm NG TID WAYNE; Protocol Stop: 03/19/25 11:19 Last Admin: 02/17/25 11:36 Dose: 30 gm Rocuronium [place] (Rocuronium Inj 10 Mg/Ml Vial 10 Ml) 50 mg IVP X1 ONE Stop: 02/17/25 10:06 Last Admin: 02/17/25 10:23 Dose: 50 mg Sodium Bicarbonate (Sodium Bicarb Inj 8.4% Syr 50 Ml Syringe) 50 ml IV Q4HR PRN PRN Reason: For ph <= to 7.0 Stop: 03/19/25 06:28 Sodium Chloride (Sodium Chloride Rt 10% 15 Ml Nebu) 5 ml INH X1 ONE Stop: 02/17/25 10:23 Assessment & Plan Plan Patient is a 64 year old female with PMH of IDDM 2, decompensated cirrhosis of unknown etiology, HFpEF (EF 65%), moderate aortic stenosis, esophageal varices who presents to the ED on 02/17 for altered mental status. Admitted to ICU for acute encephalopathy likely secondary to hepatic encephalopathy s/p intubation due to inability to protect airway. [employer]IC #Acute encephalopathy #Sedated Likely secondary to hepatic encephalopathy/hyperammonemia versus stroke Diagnostic work up: - Presented with altered mental status. found patient unresponsive in bed aroudn 5;45AM 02/17. Last known normal around 1:45AM when insulin monitor went off. AO x 3 at baseline. - Per EMS, GCS 7 however upon arrival to ED, GCS decreased to 3. Intubated due to inability to protect airway. Sedated due to agitation. - Per chart review, patient had multiple admissions for decompensated cirrhosis. - Home medications do not include lactulose - On exam, abdomen nondistended, no lower extremity edema. No facial droop appreciated. - WBC 2.8 (appears to be at her baseline), ammonia 251, AST 39, ALT 20, albumin 3.1 - CT head is negative for acute changes - CTA head neck negative for arterial stenosis or large vessel occlusions - Low suspicion for stroke as patient was witnessed to be moving all extremities after paralytic wore off. Treatment: - Lactulose 30 3 times daily, increased to 45 every 6 hours - Rifaximin 550 twice daily - On propofol and fentanyl with RASS goal -2 - Intubated on mechanical ventilator Treatment follow up: - Consider MRI if patient shows neurologic deficits on exam off sedation - Monitor for bowel movement - Consider repeat ammonia if mental status does not improve off sedation CVS #Hypotension (resolved) #Hypertension (resolved) Likely secondary to portal hypertension in setting of decompensated cirrhosis Diagnostic work up: - Initial BP 94/54 - Became intermittently hypertensive with systolics in the 170s after sedation paralytics wore off s/p intubation - Normotensive after starting propofol and fentanyl Treatment: -No active treatments at this time Treatment follow up: - IV labetalol 20 mg as needed for systolic BP >160 - Continue to monitor BP #Aortic stenosis, mild to moderate Diagnostic workup: -4/5 systolic murmur radiating to carotids on exam - Echo 08/15/2024 showed EF 65%, no diastolic or systolic dysfunction. Moderately increased LA, mild to moderate MR, moderate thickening of AV with mild to moderate . Mild TR and PI. - Follows Dr. Clark outpatient Treatment: - No active treatment at this time Treatment follow-up: - Follow up outpatient with cardiology #Hx hyperlipidemia Diagnostic work up: - Home medications include simvastatin 10 mg nightly Treatment: - Hold home simvastatin as patient is NPO and intubated Treatment follow up: - Restart once patient is able to tolerate oral - Follow up AM lipid panel Pulm #Intubated due to inability to protect airway Secondary to encephalopathy Diagostic work up; - GCS 7 -> 3, intubated due to concern of inability to protect airway - ABG 02/17 pH 7.52, pCO2 36, PaO2 88, bicarb 30 - ABG s/p intubation: pH 7.49, pCO2 38, PaO2 171 - Started on propofol and fentanyl due to agitation on vent, was not responding to commands Treatment: - On ventilator - On propofol and fentanyl Treatment follow up: - Attempt sedation holiday and SBT trials tomorrow GI #Decompensated cirrhosis #Hypersplenism #Hx esophageal varices Concern for GI bleed which may have triggered decompensation versus infection Diagnostic work up: - Home medications include Spironolactone 50 mg daily, carvedilol 3.125 mg twice daily,Bumex 1 mg 2 tablets daily - Per chart review, patient had multiple prior admissions for decompensated liver cirrhosis -Multiple abdominal ultrasounds and CT abdomen since 2020 showed cirrhosis with significant splenomegaly - CT CAP 12/2023 showed esophageal perigastric varicies, no records of endoscopy or need for repair - Following Dr. Pérez, recently saw a week and a half ago. Increased Bumex 1 mg to twice daily due to worsening ascites. - Patient is pending liver transplant at [facility] but has not been responding to donation center calls per GI - WBC 2.8 (baseline 2-3). Hgb 9.0 (baseline 8.6-9.5) - Ammonia 251, AST 39, ALT 20 - Hepatitis panel 08/15/24 negative - UA clean - CXR noted prominent vascular congestion Treatment: - Hold home spironolactone, carvedilol, Bumex - Lactulose and rifaximin as above - S/p ceftriaxone x 1 in ED - IV octreotide - IV Protonix Treatment follow up: - Continue CFX 1 g tomorrow #Hyperammonemia Likely secondary to decompensated cirrhosis Diagnostic workup: - Ammonia 251 Treatment: -Lactulose and rifaximin as above Treatment follow-up: -Monitor for bowel movements -If no bowel movements, consider enema #Hyperbilirubinemia Likely secondary to decompensated cirrhosis Diagnostic workup: - Bilirubin 2.2, alk phos 193 - Per chart review, bilirubin has been chronically elevated -US gallbladder shows sludge ball, negative for cholelithiasis or cholecystitis. Normal common bile duct with normal hepatorenal portal venous flow. Treatment: -No active treatment at this time Treatment follow-up: -Monitor for signs of right upper quadrant pain or worsening infection -Follow-up a.m. CMP Renal #IGNACIO on CKD Likely pre-renal in setting of recent increase in diuretic medication Diagnostic workup: -Creatinine 1.8 (baseline 1.0-1.2) - BUN/Cr 22 - Recently increased Bumex 1 mg from 1 to 2 tablets a day Treatment: - Hold Bumex, spiranolactone, and carvedilol Treatment follow-up: -Monitor a.m. renal panel -Avoid nephrotoxic agents -Strict [facility] #IDDM2 Diagnostic workup: -Home medication include Lantus 35 units and lispro 2 units with meals -Glucose 400 ---> 249 - A1c 7.3 02/17 Treatment: - S/p insulin regular 5.9 x1 in ED - Degludec 30 units - SSI step 2 Treatment follow-up: - Bedside glucose every 6 hours - Increase insulin as needed Heme #Leukopenia #Thrombocytopenia Both chronic in setting of hypersplenism Diagnostic work up: - WBC 2.8 (baseline 2-3). - Platelets 47,000, has been chronically low on chart review, intermittently ranging from 40s to as high as 77 since 2018 - Per chart review, previously followed oncologist Dr. Salguero in 2020. Noted that leukopenia and thrombocytopenia was secondary to hypersplenism Treatment: - No active treatment Treatment follow up: - Outpatient follow up #MICHELLE Diagnostic work up: - Hgb 9.0 (baseline 8.6-9.5) - Iron panel 08/17/24 showed low iron, TIBC, and unsaturated iron binding - Home medications include ferrous sulfate 325 mg BID Treatment: - Hold home PO iron Treatment follow up: - Consider iron infusion if patient continues to be intubated - Restart home iron once extubated and able to tolerate PO ID No active disease ICU Health maintenance: Mechanical ventilation: yes Sedation: yes (propofol and fentanyl) Diet: NPO DVT prophylaxis: Heparin GI prophylaxis: Protonix Pugh: no Lines: PIV Antibiotics: none CODE STATUS: FULL Patient plan of care was discussed with the senior resident, Dr. Awan, and attending physician, Dr. Story. Anastasiia Campos DO, PGY-1 Attending Provider Attestation/Addendum pt seen and examined, d/w residents. in brief this is a 64yo F with a h/o cirrhosis who presented to the ER for AMS. In the ER she had a progressive decline of her mentation until she reached a GCS of 3 reason for which she was intubated. There is some question of whether or not she had some left-sided weakness on arrival. An ammonia level was checked and it was found to be very elevated. On physical exam she is unresponsive, normal body habitus, lungs clear to auscultation bilaterally, heart regular rhythmic, abdomen is soft and nondistended, no edema of the lower extremities, pulses are palpable, unable to obtain withdrawal in any of the 4 extremities however physical exam was done shortly after intubation and the patient did receive rocuronium ordered he intubation. For her acute hypoxic respiratory failure we will follow-up on ABG and chest x-rays, wean vent as able. Unclear reason for her decompensated cirrhosis. Will evaluate for an occult bleed and start octreotide. She does have chronic kidney disease and it is unclear if this is regular CKD or possible hepatorenal syndrome. Case discussed with ICU team and family present at bedside Labs imaging and records reviewed Approximately 65 critical care minutes required for evaluation, exam, review, intervention, discussion formulation of plan of care this critically ill patient with decompensated cirrhosis, hepatic encephalopathy and acute respiratory failure who is at high risk for further ongoing decompensation.
[2025-02-17] MEDS: HEPARIN SOD INJ 5000 UNIT/ML VIAL SC ×2 (15:34→20:15)
[2025-02-17] MEDS: fentaNYL 2,500 MCG/250 ML BAG 2,500 MCG/250 ML BAG IV (15:36)
[2025-02-17] MEDS: INSULIN LISPRO (AdmeLOG) 1 UNIT/0.01 ML UNIT SC (18:16)
[2025-02-17] MEDS: LACTULOSE SYRUP 20 GM/30 ML UDC 45 GM NG (20:15)
[2025-02-18] VITALS (32 sets, daily range): BP systolic 96–153; BP diastolic 47–75; PULSE 60–88; RESP 9–26; TEMP 36.3–36.8; O2SAT 99–100
[2025-02-18] MEDS: LACTULOSE SYRUP 20 GM/30 ML UDC 45 GM NG ×5 (00:08→23:36)
[2025-02-18] MEDS: INSULIN LISPRO (AdmeLOG) 1 UNIT/0.01 ML UNIT SC ×5 (00:08→23:37)
[2025-02-18] MEDS: PROPOFOL 1,000 MG IVPB 1,000 MG/100 ML VIAL 7.02 MG IV (01:32)
--- NOTE | 2025-02-18 05:00 | XR_ITS ---
EXAMINATION: AP chest single view TECHNIQUE: AP portable semiupright chest single view Date and time: February 18, 2025, 0526 hours, comparison February 17, 2025 INDICATIONS: Acute encephalopathy, hypoxic respiratory failure post intubation FINDINGS: Mild prominence left ventricle Moderate vascular congestion Suspicious for septal edema early at the lung bases Endotracheal tube tip 3 cm above carmen. Orogastric tube in the stomach, the tip is below the level of film IMPRESSION: Suspicious for mild heart failure
[2025-02-18 05:06] LABS: Base Excess 3 (-3-3); HCO3 26 mEq/L (20-26); Inspired Oxygen, FIO2 21 %; O2 Saturation 99 % (91-98); PCO2 31 mmHg (32.0-48.0); PO2 157 mmHg (83-108); pH, Arterial 7.53 (7.35-7.45)
[2025-02-18 05:07] LABS: Allen Test Performed/OK; Puncture Site Left Radial
[2025-02-18] MEDS: HEPARIN SOD INJ 5000 UNIT/ML VIAL SC ×3 (05:34→21:25)
[2025-02-18 05:37] LABS: Basophils # (Auto) 0.0 Thou/mm3 (0.0-0.2); Basophils % (Auto) 0 % (0-2.5); Eosinophils # (Auto) 0.2 Thou/mm3 (0.0-0.5); Eosinophils % (Auto) 2 % (0-10); Hematocrit 32.5 % (36.0-46.0); Hemoglobin 11.5 g/dL (12.0-16.0); Immature Granulocytes Auto 0.03 Thou/mm3 (0.00-0.00); Lymphocytes # (Auto) 3.0 Thou/mm3 (1.0-4.8); Lymphocytes % (Auto) 31 % (10-50); Mean Corpuscular HGB Conc 35.4 g/dl (31.0-37.0); Mean Corpuscular Hemoglobin 34.1 pg (25.0-35.0); Mean Corpuscular Volume 96 fL (80-100); Monocytes # (Auto) 1.2 Thou/mm3 (0.0-0.8); Monocytes % (Auto) 12 % (0-12); Neutrophils # (Auto) 5.2 Thou/mm3 (1.8-7.7); Neutrophils % (Auto) 54 % (37-80); Nucleated Red Blood Cell # 0.00 Thou/mm3 (0.00-0.00); Nucleated Red Blood Cell % 0 /100 WBC (0); RDW Standard Deviation 55.5 fL (36.4-46.3); Red Blood Count 3.37 Miln/mm3 (4.00-5.20); White Blood Count 9.5 Thou/mm3 (3.6-11.0)
[2025-02-18 05:39] LABS: Platelet Count 53 Thou/mm3 (140-440)
[2025-02-18 06:13] LABS: Alanine Aminotransferase 23 U/L (10-49); Albumin, Serum 3.3 gm/dL (3.4-4.8); Albumin/Globulin Ratio 0.8 (1.2-2.2); Alkaline Phosphatase 131 U/L (46-116); Anion Gap 16 (7-16); Aspartate Amino Transferase 48 U/L (0-34); BUN/Creatinine Ratio 17 Ratio (12-20); Bilirubin,Total 3.7 mg/dL (0.3-1.2); Blood Urea Nitrogen 33 mg/dL (9-23); Calcium 9.6 mg/dL (8.3-10.6); Calcium (Corrected) 10.2 mg/dL (8.5-10.1); Carbon Dioxide 22.1 mMol/L (20.0-31.0); Cardiac Risk Estimate 3.0 RATIO (3.7-5.6); Chloride 103 mMol/L (98-107); Cholesterol 158 mg/dL (132-200); Globulin 3.9 gm/dL (2.3-3.5); Glucose 177 mg/dL (74-106); HDL Cholesterol 53 mg/dL (40-60); LDL Cholesterol,Calculated 88 mg/dL (0-130); Magnesium 2.6 mg/dL (1.6-2.6); Osmolality,Calculated 292 (275-295); Phosphorous 3.2 mg/dL (2.4-5.1); Potassium 5.1 mMol/L (3.4-5.1); Sodium 141 mMol/L (136-145); Thyroid Stimulating Hormone 0.55 uIU/mL (0.55-4.78); Total Protein 7.2 gm/dL (5.7-8.2); Triglycerides 84 mg/dL (30-150); eGFR 27 See Note
[2025-02-18] MEDS: cefTRIAXone/D5w 1gm IV premix 1 GM/50 ML BAG IV (08:52)
[2025-02-18] MEDS: OCTREOTIDE ACET INJ 1,000 MCG in SODIUM CHLORIDE 0.9% 100 ML 5.1 MCG IV (09:05)
--- NOTE | 2025-02-18 10:16 | ESPR_ITS ---
Tele Neuro Progress Note Progress Note Date 02/18/25 [facility] TeleNeurology Consult Services Routine Consult Follow-Up Patient Name:???mitchell howard Date of :???1960 Identification Number:??? Date of Service:???02/18/2025 10:11:10 Diagnosis?G93.49 - Encephalopathy Multifactorial Impression Toxic metabolic encephalopathy - Known history of cirrhosis found to have ammonia of 251 and glucose of 435 - Requiring intubation CT head without acute findings CT angio head and neck without acute findings. Patient needs more time off of sedation given hepatic impairment. Spoke to primary team Dr. Martinez agreeable to obtain MRI of the brain and EEG per my recommendations. Neurology will continue to peripherally follow-up. If above findings with acute findings please call neurology. Subjective Patient remains intubated and sedation paused. ? Examination Neuro Exam: Coordination:?Sedation with propofol and fentanyl paused for about 1 hour MS and cortical functioning: Does not open eyes to voice, Does not follow commands, Does not make purposeful movements Brainstem reflexes and Cranial Nerve Exam: Pupils (CN II and III): Unable to personally visualize per nursing minimally reactive EOM (CN III, IV, ): No spontaneous eye movements visualized on video, midline Corneal reflex (CN V and VII): Corneal reflex not noted Oculocephalic reflex: intact Cough and Gag (CN IX and X): present CN VII: Face grossly symmetric. Will not grimace to pain. Spontaneous respirations: present Motor: does not move extremities spontaneously Sensory: No withdrawal to pain ? This consult was conducted in real time using interactive audio and video techno logy. Patient was informed of the technology being used for this visit and agreed to proceed. Patient located in hospital and provider located at home/office setting. Telehealth Neurology consultation was provided. I spent minutes providing telehealth care. This includes time spent for face to face visit via telemedicine, review of medical records, imaging studies and discussion of findings with providers, the patient and/or family. Dr Esme Baker [facility] For Inpatient follow-up with [facility] physician please call [facility] at . As we are not an outpatient service for any post hospital discharge needs please contact the hospital for assistance. If you have any questions for the [facility] physicians or need to reconsult for clinical or diagnostic changes please contact us via [facility] at Signature :?Esme Baker Most Recent Vital Signs Last Vital Signs Temp 97.4 F 02/18/25 08:00 Pulse 60 02/18/25 08:00 Resp 18 02/17/25 17:00 BP 99/56 L 02/18/25 08:00 Pulse Ox 100 02/18/25 08:00 O2 Del Method Room Air 02/17/25 14:27 FiO2 40 02/18/25 07:00 Laboratory-Coagulation Panel PT 14.3 Seconds (9.0-12.2) H 02/17/25 07:10 INR 1.4 (0.9-1.3) H 02/17/25 07:10 APTT 30.8 Seconds (22.0-36.0) 02/17/25 07:10
--- NOTE | 2025-02-18 10:45 | CHAP ---
Patient was visited by the Spiritual Care Volunteer who prayed for them. (Volunteer was in the hospital from 09:30-10:45)
--- NOTE | 2025-02-18 10:53 | PD.RESPRO ---
Documentation for date of: 02/18/25 Subjective Subjective Interval history: Patient is a 64 year old female with PMH IDDM 2, decompensated cirrhosis of unknown etiology, HFpEF (EF 65%), moderate aortic stenosis, hx of esophageal varicies who presents to the ED on 02/17 for altered mental status. History was obtained from as patient was intubated on exam. Per , patient was responsive around 1:45 AM after glucose monitor alarm went off. However when attempted to wake her up around 5:45AM this morning patient was unresponsive to verbal cues but withdrew from pain. called ambulance, GCS 7 per EMS. No history of seizures or strokes. At baseline, patient ambulates with walker but still has some balance issues, AOx3. Denies recent fever, chills, cough, or diarrhea. Denies recent illnesses. Upon ED arrival, GCS decreased to 3. Per nurse, patient was noted to have left sided weakness and partial left facial droop (however notes this is normal for her when she is asleep). Patient was intubated. BP 94/54, RR 23. CBC showed WBC 2.8, hemoglobin 9.0, platelet 47,000, appear to be baseline for her as she has history of hypersplenism. Labs were remarkable for glucose 435, BHB 0.2, lactic acid 2.5-> 1.9, ammonia 251, anion gap and bicarb within normal limits. Given CFX x1 and insulin regular 5.[address] head and CTA were negative for acute changes. After sedation and paralytic wore off s/p intubation, patient became agitated and was unable to follow commands, was started on propofol and fentanyl drip for sedation. Was noted to be moving all 4 extremities. Admitted to ICU for acute encephalopathy likely secondary to hepatic encephalopathy s/p intubation due to inability to protect airway. 02/10/2025: Patient was seen and examined bedside's morning. No acute overnight events. Overnight patient did have bowel movements and this morning have multiple bowel movements therefore rectal tube was placed. Patient has been off sedation since this morning, but still not waking up or following commands. Will get MRI as recommended by teleneurology, but will hold off on EEG for now and will order if patient does not wake up and follow commands by tomorrow. Otherwise having good urine output, but will start patient on midodrine as well as albumin 25 mg every 6 as creatinine has been uptrending and there could be a component of hepatorenal given history of cirrhosis. Exam Vital Signs Temp Pulse Resp BP Pulse Ox O2 Del Method FiO2 97.4 F 88 18 153/72 H 100 Room Air 40 02/18/25 08:00 02/18/25 10:00 02/17/25 17:00 02/18/25 10:00 02/18/25 09:01 02/17/25 14:27 02/18/25 07:00 Narrative Exam Gen: Intubated, currently off sedation, but not awake as of yet. HEENT: NCAT, EOMI, Pupils reactive LAURA, not icteric. External ears normal. No rhinorrhea. Moist mucous membranes. Neck: Supple, full range of motion, no observable masses, No meningeal sign. Lungs: No Respiratory distress, clear bilateral. CV: RRR, systolic murmur appreciated. Abdomen: Soft, nondistended, No rebound tenderness. MSK: No joint swelling, no redness, peripheral pulses presents, no peripheral edema. Skin: No rashes, petechiae, lesions.. Neuro: No focal neurological deficits appreciated, sensory and motor intact. Psych: Cooperative, appropriate mood and effect. Objective Labs 02/18/25 04:50 02/18/25 04:50 Labs: Laboratory Results - last 24 hr 02/17/25 02/17/25 02/18/25 10:56 13:12 04:50 WBC 9.5 D RBC 3.37 L Hgb 11.5 L D Hct 32.5 L MCV 96 MCH 34.1 MCHC 35.4 RDW Std Deviation 55.5 H Plt Count 53 L Neut % (Auto) 54 Lymph % (Auto) 31 [place] % (Auto) 12 Eos % (Auto) 2 Baso % (Auto) 0 Neut # (Auto) 5.2 Lymph # (Auto) 3.0 [place] # (Auto) 1.2 H Eos # (Auto) 0.2 Baso # (Auto) 0.0 Immature Gran # (Auto) 0.03 H Absolute Nucleated RBC 0.00 Immature Gran % 0 Nucleated RBC % 0 Puncture Site Left Radial ABG pH 7.49 H ABG pCO2 38 ABG pO2 171 H D ABG HCO3 29 H ABG O2 Saturation 101 H ABG Base Excess 5 H FiO2 50 Sodium 141 Potassium 5.1 D Chloride 103 Carbon Dioxide 22.1 Anion Gap 16 BUN 33 H Creatinine 2.0 H Estim Creat Clear Calc Not Performed. eGFR 27 L BUN/Creatinine Ratio 17 Glucose 177 H D Calculated Osmolality 292 Calcium 9.6 Corrected Calcium 10.2 H Phosphorus 3.2 Magnesium 2.6 Total Bilirubin 3.7 H D AST 48 H ALT 23 Alkaline Phosphatase 131 H D Total Protein 7.2 Albumin 3.3 L Globulin 3.9 H Albumin/Globulin Ratio 0.8 L Triglycerides 84 Cholesterol 158 LDL Cholesterol, Calc 88 HDL Cholesterol 53 Cholesterol/HDL Ratio 3.0 L TSH 0.55 SARS-CoV-2 Ag (Rapid) Negative 02/18/25 04:57 WBC RBC Hgb Hct MCV MCH MCHC RDW Std Deviation Plt Count Neut % (Auto) Lymph % (Auto) [place] % (Auto) Eos % (Auto) Baso % (Auto) Neut # (Auto) Lymph # (Auto) [place] # (Auto) Eos # (Auto) Baso # (Auto) Immature Gran # (Auto) Absolute Nucleated RBC Immature Gran % Nucleated RBC % Puncture Site Left Radial ABG pH 7.53 H ABG pCO2 31 L ABG pO2 157 H ABG HCO3 26 ABG O2 Saturation 99 H ABG Base Excess 3 FiO2 21 Sodium Potassium Chloride Carbon Dioxide Anion Gap BUN Creatinine Estim Creat Clear Calc eGFR BUN/Creatinine Ratio Glucose Calculated Osmolality Calcium Corrected Calcium Phosphorus Magnesium Total Bilirubin AST ALT Alkaline Phosphatase Total Protein Albumin Globulin Albumin/Globulin Ratio Triglycerides Cholesterol LDL Cholesterol, Calc HDL Cholesterol Cholesterol/HDL Ratio TSH SARS-CoV-2 Ag (Rapid) ABG Interpretation ABG results: 02/17/25 02/17/25 02/18/25 06:45 13:12 04:57 ABG pH 7.52 H 7.49 H 7.53 H ABG pCO2 36 38 31 L ABG pO2 88 171 H D 157 H ABG HCO3 30 H 29 H 26 ABG O2 Saturation 99 H 101 H 99 H ABG Base Excess 6 H 5 H 3 Quality Measures Quality Measures stroke Suspected type of Stroke: Non Acute Last known well (date): 02/16/25 Last known well (time): 21:00 Tenecteplase given: Reason(s) Tenecteplase not given: Outside the time window not given Rehab services: PT evaluation ordered (currently on sedation, will order once off sedation) and Speech Language Pathology eval ordered (currently on sedation, will order once off sedation) VTE Prophylaxis: pharmaceutical Antithrombotic by day 2:: not indicated (describe) Statin ordered: not ordered Anticoagulation ordered for A-fib or flutter (current or hx): not indicated Advance care planning discussed with:: spouse Assessment & Plan Assessment Current Active Medications: Generic Name Dose Route Start Last Admin Trade Name Freq PRN Reason Stop Dose Admin Acetaminophen 650 mg 02/17/25 11:20 Acetaminophen 325 Mg Tablet PO 03/19/25 11:19 Q6H PRN Fever >101.5 Dextrose 25 ml 02/17/25 11:24 Dextrose 50%-Water Inj 50 Ml Syringe IV 03/19/25 11:23 Q15MIN PRN BG 50-70 responsive npo pt Dextrose 50 ml 02/17/25 11:24 Dextrose 50%-Water Inj 50 Ml Syringe IV 03/19/25 11:23 Q15MIN PRN BG <50 OR BG <70 & pt unresponsive Glucagon 1 mg 02/17/25 11:24 Glucagon Inj 1 Mg Vial IM Q15MIN PRN BG <70, and no IV access Heparin Sodium (Porcine) 5,000 unit 02/17/25 14:00 02/18/25 05:34 Heparin Sod Inj 5000 Unit/Ml Vial SC 03/03/25 13:59 5,000 unit Q8HR WAYNE Administration Norepinephrine/Dextrose 8 mg in 250 mls @ 5.484 mls/hr 02/17/25 10:09 Levophed In D5w 8mg/250ml IV 03/19/25 10:08 .Q24H PRN PER PROTOCOL Protocol 0.05 MCG/KG/MIN Propofol 1,000 mg in 100 mls @ 1.755 mls/hr 02/17/25 10:10 02/18/25 08:20 Diprivan Ivpb IV 03/19/25 10:09 0 mcg/kg/min .Q24H PRN 0 mls/hr PER PROTOCOL Titration Protocol 5 MCG/KG/MIN Ceftriaxone Sodium/Dextrose 1 gm in 50 mls @ 100 mls/hr 02/18/25 09:00 02/18/25 08:52 Rocephin/D5w 1gm Iv Premix IV 02/25/25 08:59 100 mls/hr QDAY WAYNE Administration Octreotide Acetate 1,000 mcg/ 102 mls @ 5.1 mls/hr 02/18/25 08:00 02/18/25 09:05 Sodium Chloride IV 03/20/25 07:59 50 mcg/hr .Q20H WAYNE 5.1 mls/hr Protocol Administration 50 MCG/HR Fentanyl Citrate 2,500 mcg in 250 mls @ 2.5 mls/hr 02/17/25 13:20 02/18/25 08:20 Sublimaze Inj 2,500 Mcg/250 Ml Bag IV 02/22/25 13:19 0 mcg/hr .Q24H PRN 0 mls/hr PER PROTOCOL Titration Protocol 25 MCG/HR Albumin Human 25 gm in 100 mls @ 100 mls/hr 02/18/25 12:00 Albuminex 25% Ivpb IV 02/21/25 11:59 Q6HR WAYNE Insulin Human Lispro 0 unit 02/17/25 12:00 02/18/25 05:35 Insulin Lispro (Admelog) 1 Unit/0.01 Ml Unit SC 03/19/25 11:59 2 unit Q6HR WAYNE Administration Protocol Labetalol HCl 10 mg 02/17/25 06:18 Labetalol Inj 5 Mg/Ml Vial 4 Ml IVP Q15M PRN hypertension Lactulose 45 gm 02/17/25 18:45 02/18/25 05:34 Lactulose Syrup 20 Gm/30 Ml Udc NG 03/19/25 18:44 45 gm Q6HR WAYNE Administration Protocol Midodrine 5 mg 02/18/25 10:01 Midodrine 5 Mg Tablet PO 03/20/25 09:59 TID WAYNE Ondansetron HCl 4 mg 02/17/25 11:20 Ondansetron Inj 2 Mg/Ml Inj 2 Ml IVP 03/19/25 11:19 Q6H PRN NAUSEA OR VOMITING Protocol Pantoprazole Sodium 40 mg 02/18/25 09:00 02/18/25 08:52 Pantoprazole Inj 40 Mg Vial IVP 03/20/25 08:59 40 mg QDAY WAYNE Administration Rifaximin 550 mg 02/17/25 11:30 02/18/25 08:52 Rifaximin 550 Mg Tablet NG 02/24/25 11:29 550 mg BID WAYNE Administration Plan Patient is a 64 year old female with PMH of IDDM 2, decompensated cirrhosis of unknown etiology, HFpEF (EF 65%), moderate aortic stenosis, esophageal varices who presents to the ED on 02/17 for altered mental status. Admitted to ICU for acute encephalopathy likely secondary to hepatic encephalopathy s/p intubation due to inability to protect airway. ACCESS SPECIALIST #Acute encephalopathy #Sedated Likely secondary to hepatic encephalopathy/hyperammonemia versus stroke Diagnostic work up: - Presented with altered mental status. found patient unresponsive in bed aroudn 5;45AM 02/17. Last known normal around 1:45AM when insulin monitor went off. AO x 3 at baseline. - Per EMS, GCS 7 however upon arrival to ED, GCS decreased to 3. Intubated due to inability to protect airway. Sedated due to agitation. - Per chart review, patient had multiple admissions for decompensated cirrhosis. - Home medications do not include lactulose - On exam, abdomen nondistended, no lower extremity edema. No facial droop appreciated. - WBC 2.8 (appears to be at her baseline), ammonia 251, AST 39, ALT 20, albumin 3.1 - CT head is negative for acute changes - CTA head neck negative for arterial stenosis or large vessel occlusions - Low suspicion for stroke as patient was witnessed to be moving all extremities after paralytic wore off. Treatment: - Lactulose 30 3 times daily, increased to 45 every 6 hours - Rifaximin 550 twice daily - On propofol and fentanyl with RASS goal -2 - Intubated on mechanical ventilator -Teleneurology on board Treatment follow up: - Follow up MRI - Consider EEG if no improvement in mental status tomorrow CVS #Hypotension (resolved) #Hypertension (resolved) Likely secondary to portal hypertension in setting of decompensated cirrhosis Diagnostic work up: - Initial BP 94/54 - Became intermittently hypertensive with systolics in the 170s after sedation paralytics wore off s/p intubation - Normotensive after starting propofol and fentanyl Treatment: -No active treatments at this time Treatment follow up: - IV labetalol 20 mg as needed for systolic BP >160 - Continue to monitor BP #Aortic stenosis, mild to moderate Diagnostic workup: -4/5 systolic murmur radiating to carotids on exam - Echo 08/15/2024 showed EF 65%, no diastolic or systolic dysfunction. Moderately increased LA, mild to moderate MR, moderate thickening of AV with mild to moderate . Mild TR and PI. - Follows Dr. Anumandla outpatient Treatment: - No active treatment at this time Treatment follow-up: - Follow up outpatient with cardiology #Hx hyperlipidemia Diagnostic work up: - Home medications include simvastatin 10 mg nightly Treatment: - Hold home simvastatin as patient is NPO and intubated Treatment follow up: - Restart once patient is able to tolerate oral Pulm #Intubated due to inability to protect airway Secondary to encephalopathy Diagostic work up; - GCS 7 -> 3, intubated due to concern of inability to protect airway - ABG 02/17 pH 7.52, pCO2 36, PaO2 88, bicarb 30 - ABG s/p intubation: pH 7.49, pCO2 38, PaO2 171 - Started on propofol and fentanyl due to agitation on vent, was not responding to commands Treatment: - On ventilator - On propofol and fentanyl, currently off to asses neurological status Treatment follow up: - Attempt sedation holiday and SBT trials tomorrow GI #Decompensated cirrhosis #Hypersplenism #Hx esophageal varices Concern for GI bleed which may have triggered decompensation versus infection Diagnostic work up: - Home medications include Spironolactone 50 mg daily, carvedilol 3.125 mg twice daily,Bumex 1 mg 2 tablets daily - Per chart review, patient had multiple prior admissions for decompensated liver cirrhosis -Multiple abdominal ultrasounds and CT abdomen since 2020 showed cirrhosis with significant splenomegaly - CT CAP 12/2023 showed esophageal perigastric varicies, no records of endoscopy or need for repair - Following Dr. Pérez, recently saw a week and a half ago. Increased Bumex 1 mg to twice daily due to worsening ascites. - Patient is pending liver transplant at [facility] but has not been responding to donation center calls per GI - WBC 2.8 (baseline 2-3). Hgb 9.0 (baseline 8.6-9.5) - Ammonia 251, AST 39, ALT 20 - Hepatitis panel 08/15/24 negative - UA clean - CXR noted prominent vascular congestion Treatment: - Hold home spironolactone, carvedilol, Bumex - Lactulose and rifaximin as above - S/p ceftriaxone x 1 in ED - IV octreotide - IV Protonix #Hyperammonemia Likely secondary to decompensated cirrhosis Diagnostic workup: - Ammonia 251 Treatment: -Lactulose and rifaximin as above - Rectl tube due to multiple BM Treatment follow-up: -Monitor for bowel movements -If no bowel movements, consider enema #Hyperbilirubinemia Likely secondary to decompensated cirrhosis Diagnostic workup: - Bilirubin 2.2, alk phos 193 - Per chart review, bilirubin has been chronically elevated -US gallbladder shows sludge ball, negative for cholelithiasis or cholecystitis. Normal common bile duct with normal hepatorenal portal venous flow. Treatment: -No active treatment at this time Treatment follow-up: -Monitor for signs of right upper quadrant pain or worsening infection -Follow-up a.m. CMP Renal #IGNACIO on CKD Likely pre-renal in setting of recent increase in diuretic medication could be a component of hepatorenal Diagnostic workup: -Creatinine 1.8 (baseline 1.0-1.2)--> 2 - BUN/Cr 22 - Recently increased Bumex 1 mg from 1 to 2 tablets a day Treatment: - Hold Bumex, spiranolactone, and carvedilol - Albumin 25g q6hr, midodrine, and octeotride Treatment follow-up: -Follow-up repeat renal panel -Avoid nephrotoxic agents -Strict [facility] #IDDM2 Diagnostic workup: -Home medication include Lantus 35 units and lispro 2 units with meals -Glucose 400 ---> 249 - A1c 7.3 02/17 Treatment: - S/p insulin regular 5.9 x1 in ED - Degludec 30 units - SSI step 2 Treatment follow-up: - Bedside glucose every 6 hours - Increase insulin as needed Heme #Leukopenia #Thrombocytopenia Both chronic in setting of hypersplenism Diagnostic work up: - WBC 2.8 (baseline 2-3). - Platelets 47,000, has been chronically low on chart review, intermittently ranging from 40s to as high as 77 since 2019 - Per chart review, previously followed oncologist Dr. Salguero in 2020. Noted that leukopenia and thrombocytopenia was secondary to hypersplenism Treatment: - No active treatment Treatment follow up: - Outpatient follow up #Iron deficiency anemia Diagnostic work up: - Hgb 9.0 (baseline 8.6-9.5)---11.5 - Iron panel 08/17/24 showed low iron, TIBC, and unsaturated iron binding - Home medications include ferrous sulfate 325 mg BID Treatment: - Hold home PO iron Treatment follow up: - Consider iron infusion if patient continues to be intubated - Restart home iron once extubated and able to tolerate PO ID No active disease ICU Health maintenance: Mechanical ventilation: yes Sedation: yes (propofol and fentanyl) Diet: NPO DVT prophylaxis: Heparin GI prophylaxis: Protonix Pugh: no Lines: PIV, rectal tube Antibiotics: none CODE STATUS: FULL Patient plan of care was discussed with my attending physician, Dr. Story. Sourav Mesa, PGY2
[2025-02-18] MEDS: ALBUMIN HUMAN-KJDA 25% IVPB 25 GM/100 ML BTL IV ×3 (11:57→23:37)
--- NOTE | 2025-02-18 12:01 | ESPR_ITS ---
Documentation for date of: 02/18/25 Subjective Subjective Interval history: This is a 64-year-old female who was admitted yesterday for hepatic encephalopathy and acute hypoxic respiratory failure. She was started on the lactulose and has had multiple bowel movement. She is on propofol and fentanyl this morning. There were no acute overnight events. She has had a good urinary output and remains afebrile. Critical Care Note Critical care time (min.): 40 Exam Vital Signs Temp Pulse Resp BP Pulse Ox O2 Del Method FiO2 97.4 F 70 18 131/68 H 100 Room Air 30 02/18/25 08:00 02/18/25 11:00 02/17/25 17:00 02/18/25 11:00 02/18/25 11:00 02/17/25 14:27 02/18/25 10:45 Narrative Exam General-no acute distress, intubated and sedated, normal body habitus HEENT-normocephalic, atraumatic, sclera anicteric, pupils are small but reactive, ET tube and OG tube in place Chest-lungs clear auscultation bilaterally, heart regular rhythmic, murmur present, no increased work of breathing Abdomen-soft, nontender, bowel sounds present, no rebound or guarding Extremities-no edema, pulses palpable, no clubbing, no mottling Vent AC/VC Drips Propofol Fentanyl Physical Exam Completion Physical Exam Complete?: Yes Objective - [employer] [facility] 02/18/25 04:50 02/18/25 04:50 Labs: Laboratory Results - last 24 hr 02/17/25 02/18/25 02/18/25 13:12 04:50 04:57 WBC 9.5 D RBC 3.37 L Hgb 11.5 L D Hct 32.5 L MCV 96 MCH 34.1 MCHC 35.4 RDW Std Deviation 55.5 H Plt Count 53 L Neut % (Auto) 54 Lymph % (Auto) 31 [place] % (Auto) 12 Eos % (Auto) 2 Baso % (Auto) 0 Neut # (Auto) 5.2 Lymph # (Auto) 3.0 [place] # (Auto) 1.2 H Eos # (Auto) 0.2 Baso # (Auto) 0.0 Immature Gran # (Auto) 0.03 H Absolute Nucleated RBC 0.00 Immature Gran % 0 Nucleated RBC % 0 Puncture Site Left Radial Left Radial ABG pH 7.49 H 7.53 H ABG pCO2 38 31 L ABG pO2 171 H D 157 H ABG HCO3 29 H 26 ABG O2 Saturation 101 H 99 H ABG Base Excess 5 H 3 FiO2 50 21 Sodium 141 Potassium 5.1 D Chloride 103 Carbon Dioxide 22.1 Anion Gap 16 BUN 33 H Creatinine 2.0 H Estim Creat Clear Calc Not Performed. eGFR 27 L BUN/Creatinine Ratio 17 Glucose 177 H D Calculated Osmolality 292 Calcium 9.6 Corrected Calcium 10.2 H Phosphorus 3.2 Magnesium 2.6 Total Bilirubin 3.7 H D AST 48 H ALT 23 Alkaline Phosphatase 131 H D Total Protein 7.2 Albumin 3.3 L Globulin 3.9 H Albumin/Globulin Ratio 0.8 L Triglycerides 84 Cholesterol 158 LDL Cholesterol, Calc 88 HDL Cholesterol 53 Cholesterol/HDL Ratio 3.0 L TSH 0.55 Assessment & Plan Additional Assessment Additional Assessment: In summary this is 64-year-old female admitted to the ICU for acute hypoxic respiratory failure and hepatic encephalopathy a/p [employer]THOPEDIC RN Hepatic encephalopathy-patient has had multiple BMs on lactulose. Sedation will be held today to evaluate her underlying neurostatus. On arrival there had been some report of left-sided weakness and a question of stroke therefore stroke protocol was initiated. The patient had a head CT and a head neck CTA done both of which were negative. CV Stable Resp Acute hypoxic respiratory failure-intubated, sedation is currently on hold, follow-up with chest x-ray and ABG. Wean as able. She does have some respiratory alkalosis noted on her ABG from this morning however she is breathing over the ventilator Renal Acute on chronic kidney disease-unclear if this patient has underlying hepatorenal syndrome. She has been started on octreotide drip and albumin which will be continued for 48 hours, she is also on midodrine. Midodrine has holding parameters as currently she has a very good blood pressure off of any vasopressors. - Of note patient did receive contrast for her head neck CTA yesterday GI Cirrhosis-patient follows with GI as an outpatient. No clear reason for her decompensation at this moment in time. There is no evidence of occult GI bleed. She is on spironolactone and bumetanide at home. GI prophylaxis-PPI Endo Stable Heme Anemia-stable no signs of active bleed Thrombocytopenia-appears to be near baseline in the setting of cirrhosis Coagulopathy-in the setting of cirrhosis, no active bleeding DVT prophylaxis-given that there is no active bleeding we will go ahead and start heparin for DVT prophylaxis ID Stable Case discussed with ICU team labs, imaging records reviewed Approximately 40 critical care minutes required for evaluation, exam, review, dimension, discussion formulation of plan of care for this critically ill patient with acute respiratory failure and hepatic encephalopathy at high risk for further ongoing decompensation Provider Notation Provider Notation: Although this document has been carefully reviewed, there may still be some phonetic and other typographical errors. These errors are purely grammatical due to imperfections in the software program and should not be construed in any way to compromise the substance of the patient's medical care during this visit. Thank you for the opportunity and privilege in assisting you with this patient's care and management.
[2025-02-18 13:58] LABS: Slide Review Platelets confirmed
[2025-02-18] MEDS: MIDODRINE 5 MG TABLET PO ×2 (14:01→21:25)
--- NOTE | 2025-02-18 15:40 | PC.SS ---
64YO Female, Reason for Visit: ACUTE ENCEPHALOPATHY Role and purpose of today?s contact was explained to patient?s spouse Kvng Charlton. Patient unable to provide information for initial assessment due to current state. Patient?s primary medical surrogate decisionmaker is her spouse Kvng Charlton [phone]. Kvng explains patient is independent with ADL completion and ambulates with a FWW. Patient utilizes home oxygen nightly, liter flow unknown. Kvng was unable to confirm DME provider; reports it is located in [place]. . PCP: Kaylie Aguila, last appt. was 2 weeks ago, next appt. 03/09/25. Appt. with Dr. Pérez set for 03/10/25. PHARMACY: [facility]. Patient returning home when medically clear, spouse to transport home if appropriate. DISCHARGE PLAN: Home, spouse to transport. ? ALT. DECISIONMAKER: Spouse Kvng Charlton [phone]
--- NOTE | 2025-02-18 17:54 | PD.IMCONS ---
HPI Data of Consult Requesting Physician: Heather Story MD Primary Care Provider: Kaylie Montes MD Consult Narrative Reason for consult: Altered mental status ammonia 251 History of present illness: 64-year female admitted to the ICU from the emergency room where she was brought in at the request of her who could not wake her up Ammonia level found to be 251 With a glucose of 454 Patient has cryptogenic cirrhosis/COLE cirrhosis currently in the process of having a liver transplant evaluation either at [facility] or [facility] Patient's did not answer the phone call from the tertiary center and he is in the process of reorganizing and getting in touch with the [facility] for a liver transplant evaluation No history has been obtainable from the patient during this hospitalization as she is mechanically ventilated cc:: cc: Heather Story MD Review of Systems Review of Systems ROS Unobtainable: unobtainable due to medical condition Past Medical History Surgical History OTHER SURGICAL HX: 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 aortic stenosis Advanced portal hypertension requiring diuretic therapy due to ascites Meds Home Medications and Allergies Home Medications ?Medication ?Instructions ?Recorded ?Confirmed ?Type simvastatin 10 mg tablet (Zocor) 10 mg PO HS #0 tabs 12/07/15 11/16/24 History folic acid 1 mg tablet 1 mg PO QDAY 08/14/24 11/16/24 History albuterol sulfate 90 mcg/actuation 2 puff inhalation .COMPLEX sob 09/08/24 11/16/24 History aerosol inhaler bumetanide 1 mg tablet 1 mg PO QDAY 11/16/24 11/16/24 History carvedilol 3.125 mg tablet 3.125 mg PO BID 11/16/24 11/16/24 History hydrocodone 5 mg-acetaminophen 325 0.5 tab PO TID PRN pain 11/16/24 11/16/24 History mg tablet spironolactone 50 mg tablet 50 mg PO DAILY 11/16/24 11/16/24 History Allergies Allergy/AdvReac Type Severity Reaction Status Date / Time No Known Allergies Allergy Verified 11/16/24 08:07 Exam Vital Signs Temp Pulse Resp BP Pulse Ox O2 Del Method FiO2 97.8 F 73 18 122/67 99 Mechanical Ventilation 40 02/18/25 17:00 02/18/25 17:00 02/17/25 17:00 02/18/25 17:00 02/18/25 17:00 02/18/25 16:00 02/18/25 17:00 Routine Respiratory Exam Comments: Mechanically ventilated Routine Abdominal Exam Comments: Positive for ascites Results Labs 02/18/25 04:50 02/18/25 04:50 Labs: Short CBC 02/18/25 Range/Units 04:50 WBC 9.5 D (3.6-11.0) Thou/mm3 Hgb 11.5 L D (12.0-16.0) g/dL Hct 32.5 L (36.0-46.0) % Plt Count 53 L (140-440) Thou/mm3 BMP 02/18/25 04:50 Sodium 141 Potassium 5.1 D Chloride 103 Carbon Dioxide 22.1 BUN 33 H Creatinine 2.0 H Glucose 177 H D Calcium 9.6 Liver Function 02/18/25 Range/Units 04:50 Total Bilirubin 3.7 H D (0.3-1.2) mg/dL AST 48 H (0-34) U/L ALT 23 (10-49) U/L Alkaline Phosphatase 131 H D (46-116) U/L Albumin 3.3 L (3.4-4.8) gm/dL ABG Interpretation ABG results: 02/17/25 02/17/25 02/18/25 06:45 13:12 04:57 ABG pH 7.52 H 7.49 H 7.53 H ABG pCO2 36 38 31 L ABG pO2 88 171 H D 157 H ABG HCO3 30 H 29 H 26 ABG O2 Saturation 99 H 101 H 99 H ABG Base Excess 6 H 5 H 3 Assessment and Plan Additional Assessment & Plan Additional Plan: # Hepatic encephalopathy requiring endotracheal intubation and mechanical ventilation 2 protect the airway On lactulose and rifaximin continue both # End-stage liver disease secondary to Cole cirrhosis in the process of liver transplant evaluation as per the insurance carrier [facility] which is [facility] # Aortic stenosis under the care of gluing machine feeder Will follow the patient Thank you very much for the opportunity to participate in the care of this patient
[2025-02-18 21:06] LABS: Albumin, Serum 4.2 gm/dL (3.4-4.8); Anion Gap 16 (7-16); BUN/Creatinine Ratio 21 Ratio (12-20); Blood Urea Nitrogen 50 mg/dL (9-23); Calcium 10.2 mg/dL (8.3-10.6); Calcium (Corrected) 10.2 mg/dL (8.5-10.1); Carbon Dioxide 23.4 mMol/L (20.0-31.0); Chloride 106 mMol/L (98-107); Glucose 180 mg/dL (74-106); Osmolality,Calculated 307 (275-295); Phosphorous 5.0 mg/dL (2.4-5.1); Potassium 3.6 mMol/L (3.4-5.1); Sodium 145 mMol/L (136-145); eGFR 22 See Note
[2025-02-19] VITALS (32 sets, daily range): BP systolic 107–153; BP diastolic 53–84; PULSE 72–96; RESP 9–38; TEMP 36.5–36.8; O2SAT 97–100
[2025-02-19] MEDS: OCTREOTIDE ACET INJ 1,000 MCG in SODIUM CHLORIDE 0.9% 100 ML 5.1 MCG IV (04:08)
[2025-02-19 05:01] LABS: Base Excess 2 (-3-3); HCO3 25 mEq/L (20-26); Inspired Oxygen, FIO2 21 %; O2 Saturation 100 % (91-98); PCO2 35 mmHg (32.0-48.0); PO2 136 mmHg (83-108); pH, Arterial 7.46 (7.35-7.45)
[2025-02-19 05:02] LABS: Allen Test Not Performed; Puncture Site Left Radial
[2025-02-19] MEDS: HEPARIN SOD INJ 5000 UNIT/ML VIAL SC ×3 (05:34→21:16)
[2025-02-19] MEDS: ALBUMIN HUMAN-KJDA 25% IVPB 25 GM/100 ML BTL IV ×3 (05:34→17:48)
[2025-02-19] MEDS: LACTULOSE SYRUP 20 GM/30 ML UDC 45 GM NG (05:34)
[2025-02-19] MEDS: INSULIN LISPRO (AdmeLOG) 1 UNIT/0.01 ML UNIT SC ×3 (06:01→18:12)
[2025-02-19 06:05] LABS: Basophils # (Auto) 0.0 Thou/mm3 (0.0-0.2); Basophils % (Auto) 0 % (0-2.5); Eosinophils # (Auto) 0.1 Thou/mm3 (0.0-0.5); Eosinophils % (Auto) 2 % (0-10); Hematocrit 26.7 % (36.0-46.0); Hemoglobin 9.2 g/dL (12.0-16.0); Immature Granulocytes Auto 0.01 Thou/mm3 (0.00-0.00); Lymphocytes # (Auto) 1.2 Thou/mm3 (1.0-4.8); Lymphocytes % (Auto) 24 % (10-50); Mean Corpuscular HGB Conc 34.5 g/dl (31.0-37.0); Mean Corpuscular Hemoglobin 34.2 pg (25.0-35.0); Mean Corpuscular Volume 99 fL (80-100); Monocytes # (Auto) 0.6 Thou/mm3 (0.0-0.8); Monocytes % (Auto) 11 % (0-12); Neutrophils # (Auto) 3.1 Thou/mm3 (1.8-7.7); Neutrophils % (Auto) 63 % (37-80); Nucleated Red Blood Cell # 0.00 Thou/mm3 (0.00-0.00); Nucleated Red Blood Cell % 0 /100 WBC (0); RDW Standard Deviation 58.1 fL (36.4-46.3); Red Blood Count 2.69 Miln/mm3 (4.00-5.20); White Blood Count 4.9 Thou/mm3 (3.6-11.0)
[2025-02-19 06:15] LABS: Platelet Count 37 Thou/mm3 (140-440)
[2025-02-19 06:33] LABS: Alanine Aminotransferase 15 U/L (10-49); Albumin, Serum 4.1 gm/dL (3.4-4.8); Albumin/Globulin Ratio 1.3 (1.2-2.2); Alkaline Phosphatase 70 U/L (46-116); Anion Gap 16 (7-16); Aspartate Amino Transferase 37 U/L (0-34); BUN/Creatinine Ratio 22 Ratio (12-20); Bilirubin,Total 4.3 mg/dL (0.3-1.2); Blood Urea Nitrogen 48 mg/dL (9-23); Calcium 9.7 mg/dL (8.3-10.6); Calcium (Corrected) 9.7 mg/dL (8.5-10.1); Carbon Dioxide 21.8 mMol/L (20.0-31.0); Chloride 109 mMol/L (98-107); Globulin 3.1 gm/dL (2.3-3.5); Glucose 258 mg/dL (74-106); Magnesium 2.3 mg/dL (1.6-2.6); Osmolality,Calculated 314 (275-295); Phosphorous 4.6 mg/dL (2.4-5.1); Potassium 3.4 mMol/L (3.4-5.1); Sodium 147 mMol/L (136-145); Total Protein 7.2 gm/dL (5.7-8.2); eGFR 24 See Note
[2025-02-19 07:59] LABS: Slide Review Platelets confirmed
[2025-02-19] MEDS: POTASSIUM CHLORIDE 10% 20 MEQ/15 ML UDC 40 MEQ NG (08:46)
[2025-02-19] MEDS: cefTRIAXone/D5w 1gm IV premix 1 GM/50 ML BAG IV (08:47)
[2025-02-19] MEDS: INSULIN DEGLUDEC 5 UNIT/0.05 ML (PER 5 UNITS) 15 UNIT SC (08:51)
--- NOTE | 2025-02-19 09:00 | XR_ITS ---
EXAMINATION: AP chest single view TECHNIQUE: AP portable semiupright chest single view Date and time: February 19, 2025, 0622 hours, comparison February 18, 2025 INDICATIONS: Hypoxic respiratory failure FINDINGS: Mild heart failure Mild enlargement cardiac contour, prominent central pulmonary vasculature with early septal edema at the lung bases Orogastric tube in the stomach Tracheal tube tip 4 cm above carmen Prominent osteopenia IMPRESSION: Mild heart failure
--- NOTE | 2025-02-19 09:26 | ESPR_ITS ---
Tele Neuro Progress Note Progress Note Date 02/19/25 [facility] TeleNeurology Consult Services Routine Consult Follow-Up Patient Name:???mitchell howard Date of :???1960 Identification Number:??? Date of Service:???02/19/2025 09:19:39 Diagnosis?G93.49 - Encephalopathy Multifactorial Impression Toxic metabolic encephalopathy - Known history of cirrhosis found to have ammonia of 251 and glucose of 435 - Requiring intubation CT head without acute findings CT angio head and neck without acute findings. Patient needs more time off of sedation given hepatic impairment. Team holding off on EEG given improvement Pending MRI brain Neurology will continue to peripherally follow-up. If above findings with acute findings please call neurology. Our recommendations are outlined below Laboratory Studies : Lipid panelI orderedHemoglobin A1c Nursing Recommendations : IV Fluids, avoid dextrose containing fluids, Maintain euglycemiaNeuro checks q4 hrs x 24 hrs and then per shiftHead of bed 30 degreesContinue with Telemetry Consultations : Recommend Speech therapy if failed dysphagia screenPhysical therapy/Occupational therapy Subjective Patient remains intubated and off sedation since 02/19 8 AM. ? Examination Neuro Exam: Coordination:?off sedation since 02/19 8 AM. MS and cortical functioning: Does open eyes to voice, Does not follow commands EOM (CN III, IV, ): spontaneous eye movements visualized, EOM grossly intact Cough and Gag (CN IX and X): present CN VII: Face grossly symmetric, limited due to intubation Spontaneous respirations: present Motor/Sensory: does move extremities to pain ? This consult was conducted in real time using interactive audio and video technology. Patient was informed of the technology being used for this visit and agreed to proceed. Patient located in hospital and provider located at home/office setting. Telehealth Neurology consultation was provided. I spent minutes providing telehealth care. This includes time spent for face to face visit via telemedicine, review of medical records, imaging studies and discussion of findings with providers, the patient and/or family. Dr Esme Baker [facility] For Inpatient follow-up with [facility] physician please call [facility] at . As we are not an outpatient service for any post hospital discharge needs please contact the hospital for assistance. If you have any questions for the [facility] physicians or need to reconsult for clinical or diagnostic changes please contact us via [facility] at Signature :?Esme Baker Most Recent Vital Signs Last Vital Signs Temp 98.2 F 02/19/25 04:00 Pulse 85 02/19/25 07:08 Resp 18 02/17/25 17:00 BP 127/66 02/19/25 07:08 Pulse Ox 100 02/19/25 07:08 O2 Del Method Mechanical Ventilation 02/18/25 18:00 FiO2 30 02/19/25 07:08 Laboratory-Coagulation Panel PT 14.3 Seconds (9.0-12.2) H 02/17/25 07:10 INR 1.4 (0.9-1.3) H 02/17/25 07:10 APTT 30.8 Seconds (22.0-36.0) 02/17/25 07:10
--- NOTE | 2025-02-19 10:32 | ESPR_ITS ---
<Statement entered by Sourav Mesa MD - 02/19/25 20:57> I have reviewed the note and agree with the resident's assessment & plan with exceptions as below. I have personally reviewed labs, imaging, home meds/prior records, examined the patient, formulated and discussed management plan with my attending Sourav Mesa PGY2 Disclaimer: Even though this this note was dictated by speech recognition and even though it was carefully revised there may still be minor errors in chief pilot due to voice recognition software. Documentation for date of: 02/19/25 Subjective Subjective Interval history: Interval history: Patient is a 64 year old female with PMH IDDM 2, decompensated cirrhosis of unknown etiology, HFpEF (EF 65%), moderate aortic stenosis, hx of esophageal varicies who presents to the ED on 02/17 for altered mental status. History was obtained from as patient was intubated on exam. Per , patient was responsive around 1:45 AM after glucose monitor alarm went off. However when attempted to wake her up around 5:45AM this morning patient was unresponsive to verbal cues but withdrew from pain. called ambulance, GCS 7 per EMS. No history of seizures or strokes. At baseline, patient ambulates with walker but still has some balance issues, AOx3. Denies recent fever, chills, cough, or diarrhea. Denies recent illnesses. Upon ED arrival, GCS decreased to 3. Per nurse, patient was noted to have left sided weakness and partial left facial droop (however notes this is normal for her when she is asleep). Patient was intubated. BP 94/54, RR 23. CBC showed WBC 2.8, hemoglobin 9.0, platelet 47,000, appear to be baseline for her as she has history of hypersplenism. Labs were remarkable for glucose 435, BHB 0.2, lactic acid 2.5-> 1.9, ammonia 251, anion gap and bicarb within normal limits. Given CFX x1 and insulin regular 5.[address] head and CTA were negative for acute changes. After sedation and paralytic wore off s/p intubation, patient became agitated and was unable to follow commands, was started on propofol and fentanyl drip for sedation. Was noted to be moving all 4 extremities. Admitted to ICU for acute encephalopathy likely secondary to hepatic encephalopathy s/p intubation due to inability to protect airway. 02/18/2025: Patient was seen and examined bedside's morning. No acute overnight events. Overnight patient did have bowel movements and this morning have multiple bowel movements therefore rectal tube was placed. Patient has been off sedation since this morning, but still not waking up or following commands. Will get MRI as recommended by teleneurology, but will hold off on EEG for now and will order if patient does not wake up and follow commands by tomorrow. Otherwise having good urine output, but will start patient on midodrine as well as albumin 25 mg every 6 as creatinine has been uptrending and there could be a component of hepatorenal given history of cirrhosis. 02/19/25: Patient seen and examined at bedside. Overnight patient had 5 loose bowel movements. Decreased lactulose to 30 mg 3 times daily. Maintaining good urine output. On exam, noted to have blood in her mouth, secondary to superficial laceration on roof of mouth. Opening eyes to verbal stimuli but not tracking and still not following commands 24 hours off sedation, likely decreased clearance in setting of cirrhosis and CKD. GCS 7. Transitioned to spontaneous breathing and stable. Potassium 3.4, repleted with 40 mEq KCl orally. Creatinine continues to be elevated 2.2. Sputum preliminary cultures grew GNR, GPC, 1+ WBC. Continue IV albumin. Pending MRI today. In the afternoon, patient had 3-second run of vtach, self resolved. Repeat K 3.5, repleted another 40 mEq IV KCl. Follow up repeat renal panel 8PM. Magnesium 2.4. Patient continues to have PVCs. Will continue to monitor telemetry. Exam Vital Signs Temp Pulse Resp BP Pulse Ox O2 Del Method FiO2 98.2 F 85 18 127/66 100 Mechanical Ventilation 30 02/19/25 04:00 02/19/25 07:08 02/17/25 17:00 02/19/25 07:08 02/19/25 07:08 02/18/25 18:00 02/19/25 07:08 Narrative Exam Physical Exam General: Intubated and sedated. HEENT: Normocephalic, atraumatic, mucous membranes moist. Mild scleral icterus. Heart: Regular rate and rhythm, normal S1 and S2. 4/5 systolic murmur radiating to carotids. Lungs: CTAB. Abdomen: Soft, obese, nondistended, positive bowel sounds. Mid abdominal vertical scar. Neurologic: Withdrawing to pain but not responding to verbal commands. GCS 7. Patient able to move all 4 extremities. Extremities: No edema. Pulses intact bilaterally. Skin: Mild jaundice. No rash or ecchymoses. Objective Labs 02/19/25 05:20 02/19/25 14:32 Labs: Laboratory Results - last 24 hr 02/18/25 02/18/25 02/19/25 04:50 19:23 04:49 WBC RBC Hgb Hct MCV MCH MCHC RDW Std Deviation Plt Count Neut % (Auto) Lymph % (Auto) [place] % (Auto) Eos % (Auto) Baso % (Auto) Neut # (Auto) Lymph # (Auto) [place] # (Auto) Eos # (Auto) Baso # (Auto) Immature Gran # (Auto) Absolute Nucleated RBC Immature Gran % Nucleated RBC % Puncture Site Left Radial ABG pH 7.46 H ABG pCO2 35 ABG pO2 136 H D ABG HCO3 25 ABG O2 Saturation 100 H ABG Base Excess 2 FiO2 21 Sodium 145 Potassium 3.6 D Chloride 106 Carbon Dioxide 23.4 Anion Gap 16 BUN 50 H Creatinine 2.4 H Estim Creat Clear Calc Not Performed. eGFR 22 L BUN/Creatinine Ratio 21 H Glucose 180 H Calculated Osmolality 307 H Calcium 10.2 Corrected Calcium 10.2 H Phosphorus 5.0 Magnesium Total Bilirubin AST ALT Alkaline Phosphatase Total Protein Albumin 4.2 D Globulin Albumin/Globulin Ratio Misc Test Result Platelets confirmed 02/19/25 05:20 WBC 4.9 D RBC 2.69 L Hgb 9.2 L D Hct 26.7 L MCV 99 MCH 34.2 MCHC 34.5 RDW Std Deviation 58.1 H Plt Count 37 L D Neut % (Auto) 63 Lymph % (Auto) 24 [place] % (Auto) 11 Eos % (Auto) 2 Baso % (Auto) 0 Neut # (Auto) 3.1 Lymph # (Auto) 1.2 [place] # (Auto) 0.6 Eos # (Auto) 0.1 Baso # (Auto) 0.0 Immature Gran # (Auto) 0.01 H Absolute Nucleated RBC 0.00 Immature Gran % 0 Nucleated RBC % 0 Puncture Site ABG pH ABG pCO2 ABG pO2 ABG HCO3 ABG O2 Saturation ABG Base Excess FiO2 Sodium 147 H Potassium 3.4 Chloride 109 H Carbon Dioxide 21.8 Anion Gap 16 BUN 48 H Creatinine 2.2 H Estim Creat Clear Calc Not Performed. eGFR 24 L BUN/Creatinine Ratio 22 H Glucose 258 H D Calculated Osmolality 314 H Calcium 9.7 Corrected Calcium 9.7 Phosphorus 4.6 Magnesium 2.3 Total Bilirubin 4.3 H D AST 37 H ALT 15 Alkaline Phosphatase 70 D Total Protein 7.2 Albumin 4.1 Globulin 3.1 Albumin/Globulin Ratio 1.3 Misc Test Result Platelets confirmed ABG Interpretation ABG results: 02/17/25 02/17/25 02/18/25 06:45 13:12 04:57 ABG pH 7.52 H 7.49 H 7.53 H ABG pCO2 36 38 31 L ABG pO2 88 171 H D 157 H ABG HCO3 30 H 29 H 26 ABG O2 Saturation 99 H 101 H 99 H ABG Base Excess 6 H 5 H 3 02/19/25 04:49 ABG pH 7.46 H ABG pCO2 35 ABG pO2 136 H D ABG HCO3 25 ABG O2 Saturation 100 H ABG Base Excess 2 Quality Measures Quality Measures stroke Suspected type of Stroke: Non Acute Last known well (date): 02/16/25 Last known well (time): 21:00 Tenecteplase given: Reason(s) Tenecteplase not given: Outside the time window not given Rehab services: PT evaluation ordered (patient still intubated) VTE Prophylaxis: pharmaceutical Antithrombotic by day 2:: not indicated (describe) Statin ordered: not ordered Anticoagulation ordered for A- fib or flutter (current or hx): not indicated Advance care planning discussed with:: spouse Assessment & Plan Assessment Current Active Medications: Generic Name Dose Route Start Last Admin Trade Name Freq PRN Reason Stop Dose Admin Acetaminophen 650 mg 02/17/25 11:20 Acetaminophen 325 Mg Tablet PO 03/19/25 11:19 Q6H PRN Fever >101.5 Dextrose 25 ml 02/17/25 11:24 Dextrose 50%-Water Inj 50 Ml Syringe IV 03/19/25 11:23 Q15MIN PRN BG 50-70 responsive npo pt Dextrose 50 ml 02/17/25 11:24 Dextrose 50%-Water Inj 50 Ml Syringe IV 03/19/25 11:23 Q15MIN PRN BG <50 OR BG <70 & pt unresponsive Glucagon 1 mg 02/17/25 11:24 Glucagon Inj 1 Mg Vial IM Q15MIN PRN BG <70, and no IV access Heparin Sodium (Porcine) 5,000 unit 02/17/25 14:00 02/19/25 05:34 Heparin Sod Inj 5000 Unit/Ml Vial SC 03/03/25 13:59 5,000 unit Q8HR WAYNE Administration Norepinephrine/Dextrose 8 mg in 250 mls @ 5.484 mls/hr 02/17/25 10:09 Levophed In D5w 8mg/250ml IV 03/19/25 10:08 .Q24H PRN PER PROTOCOL Protocol 0.05 MCG/KG/MIN Propofol 1,000 mg in 100 mls @ 1.755 mls/hr 02/17/25 10:10 02/18/25 08:20 Diprivan Ivpb IV 03/19/25 10:09 0 mcg/kg/min .Q24H PRN 0 mls/hr PER PROTOCOL Titration Protocol 5 MCG/KG/MIN Ceftriaxone Sodium/Dextrose 1 gm in 50 mls @ 100 mls/hr 02/18/25 09:00 02/19/25 08:47 Rocephin/D5w 1gm Iv Premix IV 02/25/25 08:59 100 mls/hr QDAY WAYNE Administration Octreotide Acetate 1,000 mcg/ 102 mls @ 5.1 mls/hr 02/18/25 08:00 02/19/25 04:08 Sodium Chloride IV 03/20/25 07:59 50 mcg/hr .Q20H WAYNE 5.1 mls/hr Protocol Administration 50 MCG/HR Fentanyl Citrate 2,500 mcg in 250 mls @ 2.5 mls/hr 02/17/25 13:20 02/18/25 08:20 Sublimaze Inj 2,500 Mcg/250 Ml Bag IV 02/22/25 13:19 0 mcg/hr .Q24H PRN 0 mls/hr PER PROTOCOL Titration Protocol 25 MCG/HR Albumin Human 25 gm in 100 mls @ 100 mls/hr 02/18/25 12:00 02/19/25 05:34 Albuminex 25% Ivpb IV 02/21/25 11:59 100 mls/hr Q6HR WAYNE Administration Insulin Degludec 15 unit 02/19/25 09:00 02/19/25 08:51 Insulin Degludec 5 Unit/0.05 Ml (Per 5 Units) SC 03/21/25 08:59 15 unit QDAY WAYNE Administration Insulin Human Lispro 0 unit 02/17/25 12:00 02/19/25 06:01 Insulin Lispro (Admelog) 1 Unit/0.01 Ml Unit SC 03/19/25 11:59 4 unit Q6HR WAYNE Administration Protocol Labetalol HCl 10 mg 02/17/25 06:18 Labetalol Inj 5 Mg/Ml Vial 4 Ml IVP Q15M PRN hypertension Lactulose 30 gm 02/19/25 14:00 Lactulose Syrup 20 Gm/30 Ml Udc NG 03/21/25 13:59 TID WAYNE Protocol Midodrine 5 mg 02/18/25 10:01 02/19/25 05:32 Midodrine 5 Mg Tablet PO 03/20/25 09:59 Not Given TID WAYNE Ondansetron HCl 4 mg 02/17/25 11:20 Ondansetron Inj 2 Mg/Ml Inj 2 Ml IVP 03/19/25 11:19 Q6H PRN NAUSEA OR VOMITING Protocol Pantoprazole Sodium 40 mg 02/18/25 09:00 02/19/25 08:47 Pantoprazole Inj 40 Mg Vial IVP 03/20/25 08:59 40 mg QDAY WAYNE Administration Rifaximin 550 mg 02/17/25 11:30 02/19/25 08:47 Rifaximin 550 Mg Tablet NG 02/24/25 11:29 550 mg BID WAYNE Administration Plan Patient is a 64 year old female with PMH of IDDM 2, decompensated cirrhosis of unknown etiology, HFpEF (EF 65%), moderate aortic stenosis, esophageal varices who presents to the ED on 02/17 for altered mental status. Admitted to ICU for acute encephalopathy likely secondary to hepatic encephalopathy s/p intubation due to inability to protect airway. 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 found patient unresponsive in bed aroudn 5;45AM 02/17. Last known normal around 1:45AM when insulin monitor went off. AO x 3 at baseline. - Per EMS, GCS 7 however upon arrival to ED, GCS decreased to 3. Intubated due to inability to protect airway. Sedated due to agitation. - Per chart review, patient had multiple admissions for decompensated cirrhosis. - Home medications do not include lactulose - On exam, abdomen nondistended, no lower extremity edema. No facial droop appreciated. - WBC 2.8 (appears to be at her baseline), ammonia 251, AST 39, ALT 20, albumin 3.1 - CT head is negative for acute changes - CTA head neck negative for arterial stenosis or large vessel occlusions - Low suspicion for stroke as patient was witnessed to be moving all extremities after paralytic wore off - GCS 7 today, with withdrawal to painful stimuli and eye opening with painful stimuli Treatment: - Decrease lactulose to 30 3 times daily - Rifaximin 550 twice daily - Off sedation for past 48 hours - Intubated, on spontaneous breathing on ventilator - Teleneurology on board Treatment follow up: - Follow up MRI - Consider EEG if no improvement in mental status CVS #Vtach (resolved) #PVCs Likely secondary to hypokalemia in setting of multiple bowel movements overnight Diagnostic workup: - Noted to have 3-second run of v. tach on telemetry, self resolved - Followed by PVCs - New episodes, patient does not have any history of arrhythmias -K 3.4 on a.m. labs, repeat 3.5 Treatment: -S/p 40 mEq KCl orally +40 mEq KCl IV Treatment follow-up: -Follow-up renal panel 8 PM - Keep K>4 and Mg >2 #Hypotension (resolved) #Hypertension (resolved) Likely secondary to portal hypertension in setting of decompensated cirrhosis Diagnostic work up: - Initial BP 94/54 - Became intermittently hypertensive with systolics in the 170s after sedation paralytics wore off s/p intubation - Normotensive after starting propofol and fentanyl Treatment: -No active treatments at this time Treatment follow up: - IV labetalol 20 mg as needed for systolic BP >160 - Continue to monitor BP #Aortic stenosis, mild to moderate Diagnostic workup: -4/5 systolic murmur radiating to carotids on exam - Echo 08/15/2024 showed EF 65%, no diastolic or systolic dysfunction. Moderately increased LA, mild to moderate MR, moderate thickening of AV with mild to moderate . Mild TR and PI. - Follows Dr. Clark outpatient Treatment: - No active treatment at this time Treatment follow-up: - Follow up outpatient with cardiology #Hx hyperlipidemia Diagnostic work up: - Home medications include simvastatin 10 mg nightly Treatment: - Hold home simvastatin as patient is NPO and intubated Treatment follow up: - Restart once patient is able to tolerate oral Pulm #Intubated due to inability to protect airway Secondary to hepatic encephalopathy Diagostic work up; - GCS 7 -> 3, intubated due to concern of inability to protect airway - ABG 02/17 pH 7.52, pCO2 36, PaO2 88, bicarb 30 - ABG s/p intubation: pH 7.49, pCO2 38, PaO2 171 - Started on propofol and fentanyl due to agitation on vent, was not responding to commands - Off sedation for the past 24 hours Treatment: - On spontaneous breathing - Off propofol and fentanyl Treatment follow up: - Continue to reassess neurologic status tomorrow GI #Decompensated cirrhosis in setting of ESLD #Hypersplenism #Hx esophageal varices Concern for GI bleed which may have triggered decompensation versus infection Diagnostic work up: - Home medications include Spironolactone 50 mg daily, carvedilol 3.125 mg twice daily,Bumex 1 mg 2 tablets daily - Per chart review, patient had multiple prior admissions for decompensated liver cirrhosis -Multiple abdominal ultrasounds and CT abdomen since 2020 showed cirrhosis with significant splenomegaly - CT CAP 12/2023 showed esophageal perigastric varicies, no records of endoscopy or need for repair - Following Dr. Pérez, recently saw a week and a half ago. Increased Bumex 1 mg to twice daily due to worsening ascites. - Patient is pending liver transplant at [facility] but has not been responding to donation center calls per GI - WBC 2.8 (baseline 2-3). Hgb 9.0 (baseline 8.6-9.5) - Ammonia 251, AST 39, ALT 20 - Hepatitis panel 08/15/24 negative - UA clean - CXR noted prominent vascular congestion Treatment: - Hold home spironolactone, carvedilol, Bumex - Lactulose and rifaximin as above - S/p ceftriaxone x 1 in ED - IV octreotide - IV Protonix - CFX 1 g (02/17- - Consulted GI, appreciate recommendations #Hyperammonemia Likely secondary to decompensated cirrhosis Diagnostic workup: - Ammonia 251 Treatment: -Lactulose and rifaximin as above -Rectal tube due to multiple BM Treatment follow-up: -Monitor for bowel movements #Hyperbilirubinemia Likely secondary to decompensated cirrhosis Diagnostic workup: - Bilirubin 2.2, alk phos 193 - Per chart review, bilirubin has been chronically elevated -US gallbladder shows sludge ball, negative for cholelithiasis or cholecystitis. Normal common bile duct with normal hepatorenal portal venous flow. Treatment: -No active treatment at this time Treatment follow-up: -Monitor for signs of right upper quadrant pain or worsening infection -Follow-up a.m. CMP Renal #IGNACIO on CKD Likely pre-renal in setting of recent increase in diuretic medication, could also be a component of hepatorenal Recently increased Bumex 1 mg from 1 to 2 tablets a day outpatient Diagnostic workup: -Creatinine 1.8 (baseline 1.0-1.2)--> 2.2 - BUN/Cr 22 Treatment: - Hold Bumex, spiranolactone, and carvedilol - Albumin 25g q6hr - Midodrine 5 mg TID - Octeotride drip Treatment follow-up: -Avoid nephrotoxic agents -Strict [facility] #IDDM2 Diagnostic workup: -Home medication include Lantus 35 units and lispro 2 units with meals -Glucose 400 ---> 249 - A1c 7.3 02/17 Treatment: - S/p insulin regular 5.9 x1 in ED - Degludec 15 units - SSI step 2 Treatment follow-up: - Bedside glucose every 6 hours - Increase insulin as needed Heme #Leukopenia #Thrombocytopenia Both chronic in setting of hypersplenism Diagnostic work up: - WBC 2.8 (baseline 2-3). - Platelets 47,000, has been chronically low on chart review, intermittently ranging from 40s to as high as 77 since 2019 - Per chart review, previously followed oncologist Dr. Salguero in 2020. Noted that leukopenia and thrombocytopenia was secondary to hypersplenism Treatment: - No active treatment Treatment follow up: - Outpatient follow up #Iron deficiency anemia Diagnostic work up: - Hgb 9.0 (baseline 8.6-9.5)---11.5 - Iron panel 08/17/24 showed low iron, TIBC, and unsaturated iron binding - Home medications include ferrous sulfate 325 mg BID Treatment: - Hold home PO iron Treatment follow up: - Consider iron infusion if patient continues to be intubated - Restart home iron once extubated and able to tolerate PO ID No active disease ICU Health maintenance: Mechanical ventilation: yes Sedation: yes (propofol and fentanyl) Diet: NPO DVT prophylaxis: Heparin GI prophylaxis: Protonix Pugh: no Lines: PIV, rectal tube Antibiotics: none CODE STATUS: FULL Patient plan of care was discussed with the senior resident, Dr. Martinez, and attending physician, Dr. Story. Anastasiia Campos DO, PGY-1
--- NOTE | 2025-02-19 10:44 | PD.INTPROG ---
Documentation for date of: 02/19/25 Subjective Subjective Interval history: This is a 64-year-old female who was admitted yesterday for hepatic encephalopathy and acute hypoxic respiratory failure. She was started on the lactulose and has had multiple bowel movement. She is on propofol and fentanyl this morning. There were no acute overnight events. She has had a good urinary output and remains afebrile. 02/19- no acute overnight events, sedation has been on hold since yesterday, today responds to noxious stimuli, fq loose BM requiring rectal tube, good UOP, afebrile Critical Care Note Critical care time (min.): 38 Exam Vital Signs Temp Pulse Resp BP Pulse Ox O2 Del Method FiO2 98.2 F 85 18 127/66 100 Mechanical Ventilation 30 02/19/25 04:00 02/19/25 07:08 02/17/25 17:00 02/19/25 07:08 02/19/25 07:08 02/18/25 18:00 02/19/25 07:08 Narrative Exam Gen- NAD, intubated, off sedation, GCS 7T, nl body habitus HEENT- NC/AT, mucosa dry, ETT/OGT in place, sclera anicteric, Pupils small and reactive Chest- LCTAB, HRRR, murmur suggestive of present, no increase in WOB Abd- s/nt/bs+ Ext- no edema, pulses palp, no clubbing, no mottling Vent PSV Drips octreotide Physical Exam Completion Physical Exam Complete?: Yes Objective - Title Department Manager Labs 02/19/25 05:20 02/19/25 05:20 Labs: Laboratory Results - last 24 hr 02/18/25 02/18/25 02/19/25 04:50 19:23 04:49 WBC RBC Hgb Hct MCV MCH MCHC RDW Std Deviation Plt Count Neut % (Auto) Lymph % (Auto) [place] % (Auto) Eos % (Auto) Baso % (Auto) Neut # (Auto) Lymph # (Auto) [place] # (Auto) Eos # (Auto) Baso # (Auto) Immature Gran # (Auto) Absolute Nucleated RBC Immature Gran % Nucleated RBC % Puncture Site Left Radial ABG pH 7.46 H ABG pCO2 35 ABG pO2 136 H D ABG HCO3 25 ABG O2 Saturation 100 H ABG Base Excess 2 FiO2 21 Sodium 145 Potassium 3.6 D Chloride 106 Carbon Dioxide 23.4 Anion Gap 16 BUN 50 H Creatinine 2.4 H Estim Creat Clear Calc Not Performed. eGFR 22 L BUN/Creatinine Ratio 21 H Glucose 180 H Calculated Osmolality 307 H Calcium 10.2 Corrected Calcium 10.2 H Phosphorus 5.0 Magnesium Total Bilirubin AST ALT Alkaline Phosphatase Total Protein Albumin 4.2 D Globulin Albumin/Globulin Ratio Misc Test Result Platelets confirmed 02/19/25 05:20 WBC 4.9 D RBC 2.69 L Hgb 9.2 L D Hct 26.7 L MCV 99 MCH 34.2 MCHC 34.5 RDW Std Deviation 58.1 H Plt Count 37 L D Neut % (Auto) 63 Lymph % (Auto) 24 [place] % (Auto) 11 Eos % (Auto) 2 Baso % (Auto) 0 Neut # (Auto) 3.1 Lymph # (Auto) 1.2 [place] # (Auto) 0.6 Eos # (Auto) 0.1 Baso # (Auto) 0.0 Immature Gran # (Auto) 0.01 H Absolute Nucleated RBC 0.00 Immature Gran % 0 Nucleated RBC % 0 Puncture Site ABG pH ABG pCO2 ABG pO2 ABG HCO3 ABG O2 Saturation ABG Base Excess FiO2 Sodium 147 H Potassium 3.4 Chloride 109 H Carbon Dioxide 21.8 Anion Gap 16 BUN 48 H Creatinine 2.2 H Estim Creat Clear Calc Not Performed. 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 Sedation will be held today to evaluate her underlying neurostatus. On arrival there had been some report of left-sided weakness and a question of stroke therefore stroke protocol was initiated. The patient had a head CT and a head neck CTA done both of which were negative. - today she has had an improvement in her GCS to 7 CV Murmur- h/o and mod dilated LA, nl EF Resp Acute hypoxic respiratory failure-intubated, sedation is currently on hold, follow-up with chest x-ray and ABG. Wean as able. She does have some respiratory alkalosis noted on her ABG from this morning however she is breathing over the ventilator - switched to PSV and tolerating well however due to mental status can not extubated as of yet Renal Acute on chronic kidney disease-unclear if this patient has underlying hepatorenal syndrome. She has been started on octreotide drip and albumin which will be continued for 48 hours, she is also on midodrine. Midodrine has holding parameters as currently she has a very good blood pressure off of any vasopressors. - Of note patient did receive contrast for her head neck CTA yesterday - trending down today - good UOP GI Cirrhosis-patient follows with GI as an outpatient. No clear reason for her decompensation at this moment in time. There is no evidence of occult GI bleed. She is on spironolactone and bumetanide at home. - hold for now GI prophylaxis- PPI Endo Stable Heme Anemia-stable no signs of active bleed - at baseline Thrombocytopenia-appears to be near baseline in the setting of cirrhosis - no active bleeding Coagulopathy-in the setting of cirrhosis, no active bleeding DVT prophylaxis-given that there is no active bleeding we will go ahead and start heparin for DVT prophylaxis ID Started on ceftri Case discussed with ICU team labs, imaging records reviewed Approximately 38 critical care minutes required for evaluation, exam, review, dimension, discussion formulation of plan of care for this critically ill patient with acute respiratory failure and hepatic encephalopathy at high risk for further ongoing decompensation Provider Notation Provider Notation: Although this document has been carefully reviewed, there may still be some phonetic and other typographical errors. These errors are purely grammatical due to imperfections in the software program and should not be construed in any way to compromise the substance of the patient's medical care during this visit. Thank you for the opportunity and privilege in assisting you with this patient's care and management.
--- NOTE | 2025-02-19 11:17 | PD.TNEUROPRO ---
Tele Neuro Progress Note Most Recent Vital Signs Last Vital Signs Temp 98.2 F 02/19/25 04:00 Pulse 85 02/19/25 07:08 Resp 18 02/17/25 17:00 BP 127/66 02/19/25 07:08 Pulse Ox 100 02/19/25 07:08 O2 Del Method Mechanical Ventilation 02/18/25 18:00 FiO2 30 02/19/25 07:08 Laboratory-Coagulation Panel PT 14.3 Seconds (9.0-12.2) H 02/17/25 07:10 INR 1.4 (0.9-1.3) H 02/17/25 07:10 APTT 30.8 Seconds (22.0-36.0) 02/17/25 07:10
[2025-02-19] MEDS: LACTULOSE SYRUP 20 GM/30 ML UDC 30 GM NG ×2 (14:04→21:16)
[2025-02-19] MEDS: POTASSIUM CHL 10 mEq IVPB 100 ML 100 MEQ IV ×4 (15:05→18:39)
[2025-02-19 15:07] LABS: Albumin, Serum 4.7 gm/dL (3.4-4.8); Anion Gap 12 (7-16); BUN/Creatinine Ratio 21 Ratio (12-20); Blood Urea Nitrogen 50 mg/dL (9-23); Calcium 10.6 mg/dL (8.3-10.6); Calcium (Corrected) 10.6 mg/dL (8.5-10.1); Carbon Dioxide 24.0 mMol/L (20.0-31.0); Chloride 115 mMol/L (98-107); Glucose 218 mg/dL (74-106); Magnesium 2.4 mg/dL (1.6-2.6); Osmolality,Calculated 320 (275-295); Phosphorous 2.9 mg/dL (2.4-5.1); Potassium 3.5 mMol/L (3.4-5.1); Sodium 151 mMol/L (136-145); eGFR 22 See Note
--- NOTE | 2025-02-19 17:03 | XR_ITS ---
EXAMINATION: AP chest single view TECHNIQUE: AP portable supine chest single view Date and time: February 19, 2025, 1729 hours, comparison February 19, 2025 0622 hours INDICATIONS: Hypoxic respiratory failure, post intubation FINDINGS: Mild enlargement cardiac contour Prominent vascular congestion Endotracheal tube projects above the carmen Orogastric tube in the stomach IMPRESSION: Again noted mild heart failure
--- NOTE | 2025-02-19 18:03 | ESPR_ITS ---
Documentation for date of: 02/19/25 Subjective Subjective Interval history: Patient evaluated WBC count 4.9 hemoglobin hematocrit 9.2 and 26.7 BUN/creatinine 50 and 2.4 Platelet count 37,000 Remains mechanically ventilated but waking up Exam Vital Signs Temp Pulse Resp BP Pulse Ox O2 Del Method FiO2 97.7 F 79 9 L 153/73 H 97 Mechanical Ventilation 30 02/19/25 16:00 02/19/25 17:02 02/19/25 17:02 02/19/25 17:02 02/19/25 17:02 02/19/25 11:00 02/19/25 16:00 Objective Labs 02/19/25 05:20 02/19/25 14:32 Labs: Laboratory Results - last 24 hr 02/18/25 02/19/25 02/19/25 19:23 04:49 05:20 WBC 4.9 D RBC 2.69 L Hgb 9.2 L D Hct 26.7 L MCV 99 MCH 34.2 MCHC 34.5 RDW Std Deviation 58.1 H Plt Count 37 L D Neut % (Auto) 63 Lymph % (Auto) 24 [place] % (Auto) 11 Eos % (Auto) 2 Baso % (Auto) 0 Neut # (Auto) 3.1 Lymph # (Auto) 1.2 [place] # (Auto) 0.6 Eos # (Auto) 0.1 Baso # (Auto) 0.0 Immature Gran # (Auto) 0.01 H Absolute Nucleated RBC 0.00 Immature Gran % 0 Nucleated RBC % 0 Puncture Site Left Radial ABG pH 7.46 H ABG pCO2 35 ABG pO2 136 H D ABG HCO3 25 ABG O2 Saturation 100 H ABG Base Excess 2 FiO2 21 Sodium 145 147 H Potassium 3.6 D 3.4 Chloride 106 109 H Carbon Dioxide 23.4 21.8 Anion Gap 16 16 BUN 50 H 48 H Creatinine 2.4 H 2.2 H Estim Creat Clear Calc Not Performed. Not Performed. eGFR 22 L 24 L BUN/Creatinine Ratio 21 H 22 H Glucose 180 H 258 H D Calculated Osmolality 307 H 314 H Calcium 10.2 9.7 Corrected Calcium 10.2 H 9.7 Phosphorus 5.0 4.6 Magnesium 2.3 Total Bilirubin 4.3 H D AST 37 H ALT 15 Alkaline Phosphatase 70 D Total Protein 7.2 Albumin 4.2 D 4.1 Globulin 3.1 Albumin/Globulin Ratio 1.3 Misc Test Result Platelets confirmed 02/19/25 14:32 WBC RBC Hgb Hct MCV MCH MCHC RDW Std Deviation Plt Count Neut % (Auto) Lymph % (Auto) [place] % (Auto) Eos % (Auto) Baso % (Auto) Neut # (Auto) Lymph # (Auto) [place] # (Auto) Eos # (Auto) Baso # (Auto) Immature Gran # (Auto) Absolute Nucleated RBC Immature Gran % Nucleated RBC % Puncture Site ABG pH ABG pCO2 ABG pO2 ABG HCO3 ABG O2 Saturation ABG Base Excess FiO2 Sodium 151 H Potassium 3.5 Chloride 115 H Carbon Dioxide 24.0 Anion Gap 12 BUN 50 H Creatinine 2.4 H Estim Creat Clear Calc Not Performed. 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 CKD Continue current management ABG Interpretation ABG results: 02/17/25 02/17/25 02/18/25 06:45 13:12 04:57 ABG pH 7.52 H 7.49 H 7.53 H ABG pCO2 36 38 31 L ABG pO2 88 171 H D 157 H ABG HCO3 30 H 29 H 26 ABG O2 Saturation 99 H 101 H 99 H ABG Base Excess 6 H 5 H 3 02/19/25 04:49 ABG pH 7.46 H ABG pCO2 35 ABG pO2 136 H D ABG HCO3 25 ABG O2 Saturation 100 H ABG Base Excess 2 Assessment & Plan A&P Narrative # Hepatic encephalopathy requiring endotracheal intubation and mechanical ventilation 2 protect the airway On lactulose and rifaximin continue both # 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
[2025-02-19 21:24] LABS: Albumin, Serum 4.8 gm/dL (3.4-4.8); Anion Gap 12 (7-16); BUN/Creatinine Ratio 24 Ratio (12-20); Blood Urea Nitrogen 50 mg/dL (9-23); Calcium 10.6 mg/dL (8.3-10.6); Calcium (Corrected) 10.6 mg/dL (8.5-10.1); Carbon Dioxide 24.3 mMol/L (20.0-31.0); Chloride 117 mMol/L (98-107); Glucose 98 mg/dL (74-106); Osmolality,Calculated 316 (275-295); Phosphorous 1.8 mg/dL (2.4-5.1); Potassium 4.1 mMol/L (3.4-5.1); Sodium 153 mMol/L (136-145); eGFR 26 See Note
[2025-02-19] MEDS: POT PHOS 15 mMol in NS 250 ML 15 MMOL/250 ML BAG 62.5 MMOL IV (21:58)
[2025-02-20] VITALS (28 sets, daily range): BP systolic 93–151; BP diastolic 49–80; PULSE 61–89; RESP 5–97; TEMP 36.4–36.9; O2SAT 97–100
[2025-02-20] MEDS: OCTREOTIDE ACET INJ 1,000 MCG in SODIUM CHLORIDE 0.9% 100 ML 5.1 MCG IV ×2 (00:30→21:23)
[2025-02-20] MEDS: ALBUMIN HUMAN-KJDA 25% IVPB 25 GM/100 ML BTL IV ×3 (00:45→12:34)
[2025-02-20 04:40] LABS: Allen Test Performed/OK; Base Excess -2 (-3-3); HCO3 23 mEq/L (20-26); Inspired Oxygen, FIO2 25 %; O2 Saturation 98 % (91-98); PCO2 36 mmHg (32.0-48.0); PO2 90 mmHg (83-108); Puncture Site Left Radial; pH, Arterial 7.41 (7.35-7.45)
[2025-02-20 05:29] LABS: Basophils # (Auto) 0.0 Thou/mm3 (0.0-0.2); Basophils % (Auto) 0 % (0-2.5); Eosinophils # (Auto) 0.1 Thou/mm3 (0.0-0.5); Eosinophils % (Auto) 2 % (0-10); Hematocrit 25.6 % (36.0-46.0); Immature Granulocytes Auto 0.01 Thou/mm3 (0.00-0.00); Lymphocytes # (Auto) 0.9 Thou/mm3 (1.0-4.8); Lymphocytes % (Auto) 26 % (10-50); Mean Corpuscular HGB Conc 33.6 g/dl (31.0-37.0); Mean Corpuscular Hemoglobin 35.0 pg (25.0-35.0); Mean Corpuscular Volume 104 fL (80-100); Monocytes # (Auto) 0.4 Thou/mm3 (0.0-0.8); Monocytes % (Auto) 13 % (0-12); Neutrophils # (Auto) 1.9 Thou/mm3 (1.8-7.7); Neutrophils % (Auto) 58 % (37-80); Nucleated Red Blood Cell # 0.00 Thou/mm3 (0.00-0.00); Nucleated Red Blood Cell % 0 /100 WBC (0); RDW Standard Deviation 60.9 fL (36.4-46.3); Red Blood Count 2.46 Miln/mm3 (4.00-5.20); White Blood Count 3.2 Thou/mm3 (3.6-11.0)
[2025-02-20 05:34] LABS: Hemoglobin 8.6 g/dL (12.0-16.0); Platelet Count 30 Thou/mm3 (140-440)
[2025-02-20 05:45] LABS: Alanine Aminotransferase 14 U/L (10-49); Albumin, Serum 4.9 gm/dL (3.4-4.8); Albumin/Globulin Ratio 1.9 (1.2-2.2); Alkaline Phosphatase 51 U/L (46-116); Anion Gap 14 (7-16); Aspartate Amino Transferase 34 U/L (0-34); BUN/Creatinine Ratio 25 Ratio (12-20); Bilirubin,Total 3.8 mg/dL (0.3-1.2); Blood Urea Nitrogen 45 mg/dL (9-23); Calcium 10.5 mg/dL (8.3-10.6); Calcium (Corrected) 10.5 mg/dL (8.5-10.1); Carbon Dioxide 22.1 mMol/L (20.0-31.0); Chloride 120 mMol/L (98-107); Globulin 2.6 gm/dL (2.3-3.5); Glucose 155 mg/dL (74-106); Magnesium 2.2 mg/dL (1.6-2.6); Osmolality,Calculated 323 (275-295); Phosphorous 3.3 mg/dL (2.4-5.1); Potassium 4.4 mMol/L (3.4-5.1); Sodium 156 mMol/L (136-145); Total Protein 7.5 gm/dL (5.7-8.2); eGFR 31 See Note
[2025-02-20 05:49] LABS: Slide Review Platelets confirmed
[2025-02-20] MEDS: LACTULOSE SYRUP 20 GM/30 ML UDC 30 GM NG (05:49)
[2025-02-20] MEDS: HEPARIN SOD INJ 5000 UNIT/ML VIAL SC ×3 (05:50→21:18)
--- NOTE | 2025-02-20 07:17 | EKG_ITS ---
[facility] Test Date: 2025-02-20 Pat Name: DEBI ROYAL [facility] Route Jumper: GOSIA : 1960 Requested By: Sourav Mesa Order Number: [id number] Reading MD: Sourav Mesa Measurements Intervals [place] Rate: 75 P: 59 CO: 142 QRS: -57 QRSD: 146 T: 41 QT: 427 QTc: 479 Interpretive Statements SINUS RHYTHM RIGHT BUNDLE BRANCH BLOCK LEFT ANTERIOR FASCICULAR BLOCK Compared to ECG 02/17/2025 06:13:56 No significant changes /[id number]
--- NOTE | 2025-02-20 08:12 | ESPR_ITS ---
Documentation for date of: 02/20/25 Subjective Subjective Interval history: Patient is a 64 year old female with PMH IDDM 2, decompensated cirrhosis of unknown etiology, HFpEF (EF 65%), moderate aortic stenosis, hx of esophageal varicies who presents to the ED on 02/17 for altered mental status. History was obtained from as patient was intubated on exam. Per , patient was responsive around 1:45 AM after glucose monitor alarm went off. However when attempted to wake her up around 5:45AM this morning patient was unresponsive to verbal cues but withdrew from pain. called ambulance, GCS 7 per EMS. No history of seizures or strokes. At baseline, patient ambulates with walker but still has some balance issues, AOx3. Denies recent fever, chills, cough, or diarrhea. Denies recent illnesses. Upon ED arrival, GCS decreased to 3. Per nurse, patient was noted to have left sided weakness and partial left facial droop (however notes this is normal for her when she is asleep). Patient was intubated. BP 94/54, RR 23. CBC showed WBC 2.8, hemoglobin 9.0, platelet 47,000, appear to be baseline for her as she has history of hypersplenism. Labs were remarkable for glucose 435, BHB 0.2, lactic acid 2.5-> 1.9, ammonia 251, anion gap and bicarb within normal limits. Given CFX x1 and insulin regular 5.[address] head and CTA were negative for acute changes. After sedation and paralytic wore off s/p intubation, patient became agitated and was unable to follow commands, was started on propofol and fentanyl drip for sedation. Was noted to be moving all 4 extremities. Admitted to ICU for acute encephalopathy likely secondary to hepatic encephalopathy s/p intubation due to inability to protect airway. 02/18/2025: Patient was seen and examined bedside's morning. No acute overnight events. Overnight patient did have bowel movements and this morning have multiple bowel movements therefore rectal tube was placed. Patient has been off sedation since this morning, but still not waking up or following commands. Will get MRI as recommended by teleneurology, but will hold off on EEG for now and will order if patient does not wake up and follow commands by tomorrow. Otherwise having good urine output, but will start patient on midodrine as well as albumin 25 mg every 6 as creatinine has been uptrending and there could be a component of hepatorenal given history of cirrhosis. 02/19/25: Patient seen and examined at bedside. Overnight patient had 5 loose bowel movements. Decreased lactulose to 30 mg 3 times daily. Maintaining good urine output. On exam, noted to have blood in her mouth, secondary to superficial laceration on roof of mouth. Opening eyes to verbal stimuli but not tracking and still not following commands 24 hours off sedation, likely decreased clearance in setting of cirrhosis and CKD. GCS 7. Transitioned to spontaneous breathing and stable. Potassium 3.4, repleted with 40 mEq KCl orally. Creatinine continues to be elevated 2.2. Sputum preliminary cultures grew GNR, GPC, 1+ WBC. Continue IV albumin. Pending MRI today. In the afternoon, patient had 3-second run of vtach, self resolved. Repeat K 3.5, repleted another 40 mEq IV KCl. Follow up repeat renal panel 8PM. Magnesium 2.4. Patient continues to have PVCs. Will continue to monitor telemetry. 02/20/2025: Patient was seen and examined at bedside's morning. Patient was following commands this morning and had good NIF with good RSBI. Patient was successfully extubated this a.m. As patient is moving all extremities and following commands, MRI was cancelled as no acute neurological deficits and low suspicion for stroke given likely hepatic encephalopathy. Kidney function has improved. Patient ET secretions did grow Enterococcus which was sensitive to levofloxacin and Bactrim, but given that patient's QTc was prolongated decided to go with Bactrim at this time. As patient is currently off vasopressors and extubated will downgrade the patient to the medical floors. Exam Vital Signs Temp Pulse Resp BP Pulse Ox O2 Del Method FiO2 98.2 F 78 14 139/58 H 99 Mechanical Ventilation 02/20/25 04:00 02/20/25 07:00 02/20/25 07:53 02/20/25 07:00 02/20/25 07:00 02/19/25 11:02/20/25 07:53 Narrative Exam Gen: A&O X 3 (person, president, town), NAD HEENT: NCAT, EOMI, Pupils reactive LAURA, icteric. External ears normal. No rhinorrhea. Moist mucous membranes. Neck: Supple, full range of motion, no observable masses, No meningeal sign. Lungs: No Respiratory distress, clear bilateral. CV: RRR, no murmurs. Abdomen: Soft, nondistended, No rebound tenderness. MSK: No joint swelling, no redness, peripheral pulses presents, no peripheral edema. Skin: No rashes, petechiae, lesions. Neuro: No focal neurological deficits appreciated, moving all extremities, sensory intact. Psych: Cooperative, appropriate mood and effect. Objective Labs 02/21/25 04:50 02/21/25 04:50 Labs: Laboratory Results - last 24 hr 02/19/25 02/19/25 02/20/25 14:32 20:40 04:29 WBC RBC Hgb Hct MCV MCH MCHC RDW Std Deviation Plt Count Neut % (Auto) Lymph % (Auto) Forest % (Auto) Eos % (Auto) Baso % (Auto) Neut # (Auto) Lymph # (Auto) Forest # (Auto) Eos # (Auto) Baso # (Auto) Immature Gran # (Auto) Absolute Nucleated RBC Immature Gran % Nucleated RBC % Puncture Site Left Radial ABG pH 7.41 ABG pCO2 36 ABG pO2 90 D ABG HCO3 23 ABG O2 Saturation 98 ABG Base Excess -2 FiO2 25 Sodium 151 H 153 H Potassium 3.5 4.1 D Chloride 115 H 117 H Carbon Dioxide 24.0 24.3 Anion Gap 12 12 BUN 50 H 50 H Creatinine 2.4 H 2.1 H Estim Creat Clear Calc Not Performed. Not Performed. eGFR 22 L 26 L BUN/Creatinine Ratio 21 H 24 H Glucose 218 H 98 D Calculated Osmolality 320 H 316 H Calcium 10.6 10.6 Corrected Calcium 10.6 H 10.6 H Phosphorus 2.9 1.8 L Magnesium 2.4 Total Bilirubin AST ALT Alkaline Phosphatase Total Protein Albumin 4.7 D 4.8 Globulin Albumin/Globulin Ratio [facility] [place] 02/20/25 04:32 WBC 3.2 L RBC 2.46 L Hgb 8.6 L Hct 25.6 L MCV 104 H MCH 35.0 MCHC 33.6 RDW Std Deviation 60.9 H Plt Count 30 L Neut % (Auto) 58 Lymph % (Auto) 26 Forest % (Auto) 13 H Eos % (Auto) 2 Baso % (Auto) 0 Neut # (Auto) 1.9 Lymph # (Auto) 0.9 L Forest # (Auto) 0.4 Eos # (Auto) 0.1 Baso # (Auto) 0.0 Immature Gran # (Auto) 0.01 H Absolute Nucleated RBC 0.00 Immature Gran % 0 Nucleated RBC % 0 Puncture Site ABG pH ABG pCO2 ABG pO2 ABG HCO3 ABG O2 Saturation ABG Base Excess FiO2 Sodium 156 H Potassium 4.4 Chloride 120 H Carbon Dioxide 22.1 Anion Gap 14 BUN 45 H Creatinine 1.8 H Estim Creat Clear Calc Not Performed. eGFR 31 L BUN/Creatinine Ratio 25 H Glucose 155 H D Calculated Osmolality 323 H Calcium 10.5 Corrected Calcium 10.5 H Phosphorus 3.3 Magnesium 2.2 Total Bilirubin 3.8 H D AST 34 ALT 14 Alkaline Phosphatase 51 D Total Protein 7.5 Albumin 4.9 H Globulin 2.6 Albumin/Globulin Ratio 1.9 Misc Test Result Platelets confirmed ABG Interpretation ABG results: 02/17/25 02/17/25 02/18/25 06:45 13:12 04:57 ABG pH 7.52 H 7.49 H 7.53 H ABG pCO2 36 38 31 L ABG pO2 88 171 H D 157 H ABG HCO3 30 H 29 H 26 ABG O2 Saturation 99 H 101 H 99 H ABG Base Excess 6 H 5 H 3 02/19/25 02/20/25 04:49 04:29 ABG pH 7.46 H 7.41 ABG pCO2 35 36 ABG pO2 136 H D 90 D ABG HCO3 25 23 ABG O2 Saturation 100 H 98 ABG Base Excess 2 -2 Quality Measures Quality Measures stroke Suspected type of Stroke: Non Acute Last known well (date): 02/16/25 Last known well (time): 21:00 Tenecteplase given: Reason(s) Tenecteplase not given: Outside the time window not given Rehab services: PT evaluation ordered (Due to encephalopathy, low suspision for stroke given pt improvement) and Speech Language Pathology eval ordered (Due to encephalopathy, low suspision for stroke given pt improvement) VTE Prophylaxis: pharmaceutical Antithrombotic by day 2:: not indicated (describe) Statin ordered: not ordered (Due to encephalopathy, low suspision for stroke given pt improvement) Anticoagulation ordered for A-fib or flutter (current or hx): not indicated Advance care planning discussed with:: patient and spouse Assessment & Plan Assessment Current Active Medications: Generic Name Dose Route Start Last Admin Trade Name Kendal PRN Reason Stop Dose Admin Acetaminophen 650 mg 02/17/25 11:20 Acetaminophen 325 Mg Tablet PO 03/19/25 11:19 Q6H PRN Fever >101.5 Dextrose 25 ml 02/17/25 11:24 Dextrose 50%-Water Inj 50 Ml Syringe IV 03/19/25 11:23 Q15MIN PRN BG 50-70 responsive npo pt Dextrose 50 ml 02/17/25 11:24 Dextrose 50%-Water Inj 50 Ml Syringe IV 03/19/25 11:23 Q15MIN PRN BG <50 OR BG <70 & pt unresponsive Glucagon 1 mg 02/17/25 11:24 Glucagon Inj 1 Mg Vial IM Q15MIN PRN BG <70, and no IV access Heparin Sodium (Porcine) 5,000 unit 02/17/25 14:00 02/20/25 05:50 Heparin Sod Inj 5000 Unit/Ml Vial SC 03/03/25 13:59 5,000 unit Q8HR WAYNE Administration Norepinephrine/Dextrose 8 mg in 250 mls @ 5.484 mls/hr 02/17/25 10:09 Levophed In D5w 8mg/250ml IV 03/19/25 10:08 .Q24H PRN PER PROTOCOL Protocol 0.05 MCG/KG/MIN Propofol 1,000 mg in 100 mls @ 1.755 mls/hr 02/17/25 10:10 02/18/25 08:20 Diprivan Ivpb IV 03/19/25 10:09 0 mcg/kg/min .Q24H PRN 0 mls/hr PER PROTOCOL Titration Protocol 5 MCG/KG/MIN Ceftriaxone Sodium/Dextrose 1 gm in 50 mls @ 100 mls/hr 02/18/25 09:00 02/19/25 08:47 Rocephin/D5w 1gm Iv Premix IV 02/25/25 08:59 100 mls/hr QDAY WAYNE Administration Octreotide Acetate 1,000 mcg/ 102 mls @ 5.1 mls/hr 02/18/25 08:00 02/20/25 00:30 Sodium Chloride IV 03/20/25 07:59 50 mcg/hr .Q20H WAYNE 5.1 mls/hr Protocol Administration 50 MCG/HR Fentanyl Citrate 2,500 mcg in 250 mls @ 2.5 mls/hr 02/17/25 13:20 02/18/25 08:20 Sublimaze Inj 2,500 Mcg/250 Ml Bag IV 02/22/25 13:19 0 mcg/hr .Q24H PRN 0 mls/hr PER PROTOCOL Titration Protocol 25 MCG/HR Albumin Human 25 gm in 100 mls @ 100 mls/hr 02/18/25 12:00 02/20/25 05:50 Albuminex 25% Ivpb IV 02/21/25 11:59 100 mls/hr Q6HR WAYNE Administration Levofloxacin/Dextrose 750 mg in 150 mls @ 100 mls/hr 02/20/25 09:00 Levaquin Ivpb IV 02/27/25 08:59 QOD WAYNE Protocol Insulin Degludec 15 unit 02/19/25 09:00 02/19/25 08:51 Insulin Degludec 5 Unit/0.05 Ml (Per 5 Units) SC 03/21/25 08:59 15 unit QDAY WAYNE Administration Insulin Human Lispro 0 unit 02/17/25 12:00 02/20/25 06:09 Insulin Lispro (Admelog) 1 Unit/0.01 Ml Unit SC 03/19/25 11:59 Not Given Q6HR WAYNE Protocol Labetalol HCl 10 mg 02/17/25 06:18 Labetalol Inj 5 Mg/Ml Vial 4 Ml IVP Q15M PRN hypertension Lactulose 30 gm 02/19/25 14:00 02/20/25 05:49 Lactulose Syrup 20 Gm/30 Ml Udc NG 03/21/25 13:59 30 gm TID WAYNE Administration Protocol Midodrine 5 mg 02/18/25 10:01 02/20/25 06:07 Midodrine 5 Mg Tablet PO 03/20/25 09:59 Not Given TID WAYNE Ondansetron HCl 4 mg 02/17/25 11:20 Ondansetron Inj 2 Mg/Ml Inj 2 Ml IVP 03/19/25 11:19 Q6H PRN NAUSEA OR VOMITING Protocol Pantoprazole Sodium 40 mg 02/18/25 09:00 02/19/25 08:47 Pantoprazole Inj 40 Mg Vial IVP 03/20/25 08:59 40 mg QDAY WAYNE Administration Rifaximin 550 mg 02/17/25 11:30 02/19/25 21:16 Rifaximin 550 Mg Tablet NG 02/24/25 11:29 550 mg BID WAYNE Administration Plan Patient is a 64 year old female with PMH of IDDM 2, decompensated cirrhosis of unknown etiology, HFpEF (EF 65%), moderate aortic stenosis, esophageal varices who presents to the ED on 02/17 for altered mental status. Admitted to ICU for acute encephalopathy likely secondary to hepatic encephalopathy s/p intubation due to inability to protect airway. [facility] LAMPAR[facility] #Acute encephalopathy, resolved Likely secondary to hepatic encephalopathy/hyperammonemia versus stroke Diagnostic work up: - Presented with altered mental status. found patient unresponsive in bed aroudn 5;45AM 02/17. Last known normal around 1:45AM when insulin monitor went off. AO x 3 at baseline. - Per EMS, GCS 7 however upon arrival to ED, GCS decreased to 3. Intubated due to inability to protect airway. Sedated due to agitation. - Per chart review, patient had multiple admissions for decompensated cirrhosis. - Home medications do not include lactulose - On exam, abdomen nondistended, no lower extremity edema. No facial droop appreciated. - WBC 2.8 (appears to be at her baseline), ammonia 251, AST 39, ALT 20, albumin 3.1 - CT head is negative for acute changes - CTA head neck negative for arterial stenosis or large vessel occlusions - Low suspicion for stroke as patient was witnessed to be moving all extremities after paralytic wore off - GCS 7 today, with withdrawal to painful stimuli and eye opening with painful stimuli Treatment: - Decrease lactulose to 20 twice daily - Rifaximin 550 twice daily - Teleneurology on board [facility] #Vtach (resolved) #PVCs Likely secondary to hypokalemia in setting of multiple bowel movements overnight Diagnostic workup: - Noted to have 3-second run of v. tach on telemetry, self resolved - Followed by PVCs - New episodes, patient does not have any history of arrhythmias Treatment: -S/p 40 mEq KCl orally +40 mEq KCl IV yesterday Treatment follow-up: - Keep K>4 and Mg >2 #Hypotension (resolved) #Hypertension (resolved) Likely secondary to portal hypertension in setting of decompensated cirrhosis Diagnostic work up: - Initial BP 94/54 - Became intermittently hypertensive with systolics in the 170s after sedation paralytics wore off s/p intubation - Normotensive after starting propofol and fentanyl Treatment: -No active treatments at this time Treatment follow up: - IV labetalol 20 mg as needed for systolic BP >160 - Continue to monitor BP #Aortic stenosis, mild to moderate Diagnostic workup: -4/5 systolic murmur radiating to carotids on exam - Echo 08/15/2024 showed EF 65%, no diastolic or systolic dysfunction. Moderately increased LA, mild to moderate MR, moderate thickening of AV with mild to moderate . Mild TR and PI. - Follows Dr. Clark outpatient Treatment: - No active treatment at this time Treatment follow-up: - Follow up outpatient with cardiology #Hx hyperlipidemia Diagnostic work up: - Home medications include simvastatin 10 mg nightly Treatment: - Hold home simvastatin as patient is NPO and intubated Treatment follow up: - Restart once patient is able to tolerate oral Pulm #Aspiration Pnuemonitis Patient's CXR shows some vascular markings, but likely had some aspiration 2/2 encephalopathy ET secretions did grow enterobacter Treatment: Started Bactrim 1 DS tablet qday GI #Decompensated cirrhosis in setting of ESLD #Hypersplenism #Hx esophageal varices Concern for GI bleed which may have triggered decompensation versus infection Diagnostic work up: - Home medications include Spironolactone 50 mg daily, carvedilol 3.125 mg twice daily,Bumex 1 mg 2 tablets daily - Per chart review, patient had multiple prior admissions for decompensated liver cirrhosis -Multiple abdominal ultrasounds and CT abdomen since 2020 showed cirrhosis with significant splenomegaly - CT CAP 12/2023 showed esophageal perigastric varicies, no records of endoscopy or need for repair - Following Dr. Pérez, recently saw a week and a half ago. Increased Bumex 1 mg to twice daily due to worsening ascites. - Patient is pending liver transplant at [facility] but has not been responding to donation center calls per GI - WBC 2.8 (baseline 2-3). Hgb 9.0 (baseline 8.6-9.5) - Ammonia 251, AST 39, ALT 20 - Hepatitis panel 08/15/24 negative - UA clean - CXR noted prominent vascular congestion Treatment: - started Lasix and spironolactone - Lactulose and rifaximin as above - S/p ceftriaxone x 1 in ED - IV octreotide, complete 5 days - IV Protonix - CFX 1 g (02/17-) - Consulted GI, appreciate recommendations #Hyperammonemia Likely secondary to decompensated cirrhosis Diagnostic workup: - Ammonia 251 Treatment: -Lactulose and rifaximin as above -DC rectal tube Treatment follow-up: -Monitor for bowel movements #Hyperbilirubinemia Likely secondary to decompensated cirrhosis Diagnostic workup: - Bilirubin 2.2, alk phos 193 - Per chart review, bilirubin has been chronically elevated -US gallbladder shows sludge ball, negative for cholelithiasis or cholecystitis. Normal common bile duct with normal hepatorenal portal venous flow. Treatment: -No active treatment at this time Treatment follow-up: -Monitor for signs of right upper quadrant pain or worsening infection -Follow-up a.m. CMP Renal #IGNACIO on CKD, improving Likely pre-renal in setting of recent increase in diuretic medication, could also be a component of hepatorenal Recently increased Bumex 1 mg from 1 to 2 tablets a day outpatient Diagnostic workup: -Creatinine 1.8 (baseline 1.0-1.2)--> 2.2---1.8 - BUN/Cr 22 Treatment: - Started Lasix and spironolactone l - DC Albumin 25g q6h - Midodrine 5 mg TID - Octeotride drip for total 5 days Treatment follow-up: -Avoid nephrotoxic agents -Strict KINGSLEY's #Hypernatremia #Hyperchloremia Likely secondary to increase of fluids decrease p.o. intake Sodium 156 and chloride 120 today Treatment: Encourage p.o. water intake Repeat renal in the afternoon Endo #IDDM2 Diagnostic workup: -Home medication include Lantus 35 units and lispro 2 units with meals -Glucose 400 ---> 249 - A1c 7.3 02/17 Treatment: - S/p insulin regular 5.9 x1 in ED - Degludec 15 units - SSI step 2 Treatment follow-up: - Bedside glucose every 6 hours - Increase insulin as needed Heme #Leukopenia #Thrombocytopenia Both chronic in setting of hypersplenism Diagnostic work up: - WBC 2.8 (baseline 2-3). - Platelets 47,000, has been chronically low on chart review, intermittently ranging from 40s to as high as 77 since 2018 - Per chart review, previously followed oncologist Dr. Salguero in 2020. Noted that leukopenia and thrombocytopenia was secondary to hypersplenism Treatment: - No active treatment Treatment follow up: - Outpatient follow up #Iron deficiency anemia Diagnostic work up: - Hgb 9.0 (baseline 8.6-9.5)---11.5 - Iron panel 08/17/24 showed low iron, TIBC, and unsaturated iron binding - Home medications include ferrous sulfate 325 mg BID Treatment: - Hold home PO iron Treatment follow up: - Consider iron infusion if patient continues to be intubated - Restart home iron once extubated and able to tolerate PO ID No active disease ICU Health maintenance: Mechanical ventilation: No Sedation: NO Diet: Renal DVT prophylaxis: Heparin GI prophylaxis: Protonix Pugh: no Lines: PIV Antibiotics: Bactrim, rocephin CODE STATUS: FULL Case disclosed with Attending Dr. Jez Mesa PGY2 Disclaimer: Even though this this note was dictated by speech recognition and even though it was carefully revised there may still be minor errors in enterprise account manager due to voice recognition software. Attending Provider Attestation/Addendum Patient seen and examined with resident team. Agree with above. In brief this is 60-year-old female admitted to the hospital for acute encephalopathy. This was felt to be secondary to hepatic encephalopathy. She was started on lactulose and has had several liquidy bowel movements. Her mental status has improved. On physical exam today she is awake and able to follow commands. She continues to have her systolic murmur without any changes and there are no signs of acute distress. She is doing well on the ventilator and has tolerated an SBT with good weaning parameters. She will be extubated today. Given that there are no focal neurodeficits and she is mobilizing all 4 extremities will cancel MRI as we do not feel that this is a stroke at this point in time. It is felt that all of her symptoms are secondary to hepatic encephalopathy which is now resolved. The secretions cultured postintubation are growing Enterobacter which appears to be resistant to therefore her antibiotics will be changed today. She is having a decent urinary output and her creatinine has trended back towards baseline. When she is extubated we will monitor for several hours and if she remains stable she will be appropriate for downgrade at that time. Case discussed with ICU team Labs, imaging and records reviewed Approximately 40 critical care minutes required evaluation, exam, review, intervention, discussion and formulation of plan of care this critically ill patient hepatic encephalopathy and acute respiratory failure who is at high risk of further ongoing decompensation.
[2025-02-20] MEDS: INSULIN DEGLUDEC 5 UNIT/0.05 ML (PER 5 UNITS) 15 UNIT SC (08:50)
[2025-02-20] MEDS: cefTRIAXone/D5w 1gm IV premix 1 GM/50 ML BAG IV (08:54)
[2025-02-20 09:25] LABS: Creatinine (Component) 1.8 mg/dL (0.6-1.3); Estimated Creatinine Clearance 25.4 mL/min (>60)
[2025-02-20 09:27] LABS: Creatinine (Component) 2.1 mg/dL (0.6-1.3); Estimated Creatinine Clearance 21.8 mL/min (>60)
[2025-02-20 09:27] LABS: Creatinine (Component) 2.4 mg/dL (0.6-1.3); Estimated Creatinine Clearance 19.1 mL/min (>60)
[2025-02-20 09:28] LABS: Creatinine (Component) 2.4 mg/dL (0.6-1.3); Estimated Creatinine Clearance 19.1 mL/min (>60)
[2025-02-20 09:28] LABS: Creatinine (Component) 2.2 mg/dL (0.6-1.3); Estimated Creatinine Clearance 20.8 mL/min (>60)
[2025-02-20 09:29] LABS: Creatinine (Component) 2.0 mg/dL (0.6-1.3); Estimated Creatinine Clearance 22.9 mL/min (>60)
[2025-02-20 09:29] LABS: Creatinine (Component) 1.8 mg/dL (0.6-1.3); Estimated Creatinine Clearance 25.4 mL/min (>60)
[2025-02-20] MEDS: TRIMETHOPRIM/SULFA 160/800 DS TABLET 1 TAB PO (09:57)
[2025-02-20] MEDS: SPIRONOLACTONE 25 MG TABLET PO ×2 (09:57→21:08)
--- NOTE | 2025-02-20 12:20 | CHAP ---
Patient was visited by the Spiritual Care Volunteer who prayed for them. (Volunteer was in the hospital from 11:24-12:20).
[2025-02-20] MEDS: INSULIN LISPRO (AdmeLOG) 1 UNIT/0.01 ML UNIT SC ×2 (12:33→17:29)
--- NOTE | 2025-02-20 15:39 | ESPR_ITS ---
Documentation for date of: 02/20/25 Subjective Subjective Interval history: Patient seen this afternoon after downgrade from ICU. She is awake, alert, oriented ?3, conversational, breathing comfortably, pain controlled on non- opioid regimen, Pugh removed, NG removed, renal function improving but sodium trending up, and participating in care plan. previously provided collateral history while intubated; now patient provides her own history and confirms she feels close to baseline. Exam Vital Signs Temp Pulse Resp BP Pulse Ox O2 Del Method FiO2 97.6 F 74 24 H 123/64 99 Room Air 02/20/25 12:00 02/20/25 15:00 02/20/25 15:00 02/20/25 15:00 02/20/25 15:00 02/20/25 12:00 02/20/25 08:31 Narrative Exam General: A&O ?3, NAD, no respiratory distress HEENT: Icteric sclera, moist mucosa, superficial mouth laceration healing, no active bleed Neck: Supple, no masses, no meningeal signs Lungs: Clear bilaterally, non-labored Heart: RRR, systolic murmur from known , no new arrhythmia on my interpretation today Abdomen: Soft, non-tender, non-distended, no guarding or rigidity MSK: Peripheral pulses intact, no edema Neuro: Moving all extremities, no new focal deficits, sensory intact Psych: Cooperative, appropriate mood/affect Objective Labs 02/21/25 04:50 02/21/25 04:50 Labs: Laboratory Results - last 24 hr 02/17/25 02/18/25 02/18/25 07:10 04:50 19:23 WBC RBC Hgb Hct MCV MCH MCHC RDW Std Deviation Plt Count Neut % (Auto) Lymph % (Auto) [place] % (Auto) Eos % (Auto) Baso % (Auto) Neut # (Auto) Lymph # (Auto) [place] # (Auto) Eos # (Auto) Baso # (Auto) Immature Gran # (Auto) Absolute Nucleated RBC Immature Gran % Nucleated RBC % Puncture Site ABG pH ABG pCO2 ABG pO2 ABG HCO3 ABG O2 Saturation ABG Base Excess FiO2 Sodium Potassium Chloride Carbon Dioxide Anion Gap BUN Creatinine 1.8 H 2.0 H 2.4 H Estim Creat Clear Calc 25.4 L 22.9 L 19.1 L eGFR BUN/Creatinine Ratio Glucose Calculated Osmolality Calcium Corrected Calcium Phosphorus Magnesium Total Bilirubin AST ALT Alkaline Phosphatase Total Protein Albumin Globulin Albumin/Globulin Ratio Misc Test Result 02/19/25 02/19/25 02/19/25 05:20 14:32 20:40 WBC RBC Hgb Hct MCV MCH MCHC RDW Std Deviation Plt Count Neut % (Auto) Lymph % (Auto) [place] % (Auto) Eos % (Auto) Baso % (Auto) Neut # (Auto) Lymph # (Auto) [place] # (Auto) Eos # (Auto) Baso # (Auto) Immature Gran # (Auto) Absolute Nucleated RBC Immature Gran % Nucleated RBC % Puncture Site ABG pH ABG pCO2 ABG pO2 ABG HCO3 ABG O2 Saturation ABG Base Excess FiO2 Sodium 153 H Potassium 4.1 D Chloride 117 H Carbon Dioxide 24.3 Anion Gap 12 BUN 50 H Creatinine 2.2 H 2.4 H 2.1 H Estim Creat Clear Calc 20.8 L 19.1 L 21.8 L eGFR 26 L BUN/Creatinine Ratio 24 H Glucose 98 D Calculated Osmolality 316 H Calcium 10.6 Corrected Calcium 10.6 H Phosphorus 1.8 L Magnesium Total Bilirubin AST ALT Alkaline Phosphatase Total Protein Albumin 4.8 Globulin Albumin/Globulin Ratio Mis Test Result 02/20/25 02/20/25 04:29 04:32 WBC 3.2 L RBC 2.46 L Hgb 8.6 L Hct 25.6 L MCV 104 H MCH 35.0 MCHC 33.6 RDW Std Deviation 60.9 H Plt Count 30 L Neut % (Auto) 58 Lymph % (Auto) 26 [place] % (Auto) 13 H Eos % (Auto) 2 Baso % (Auto) 0 Neut # (Auto) 1.9 Lymph # (Auto) 0.9 L [place] # (Auto) 0.4 Eos # (Auto) 0.1 Baso # (Auto) 0.0 Immature Gran # (Auto) 0.01 H Absolute Nucleated RBC 0.00 Immature Gran % 0 Nucleated RBC % 0 Puncture Site Left Radial ABG pH 7.41 ABG pCO2 36 ABG pO2 90 D ABG HCO3 23 ABG O2 Saturation 98 ABG Base Excess -2 FiO2 25 Sodium 156 H Potassium 4.4 Chloride 120 H Carbon Dioxide 22.1 Anion Gap 14 BUN 45 H Creatinine 1.8 H Estim Creat Clear Calc 25.4 L eGFR 31 L BUN/Creatinine Ratio 25 H Glucose 155 H D Calculated Osmolality 323 H Calcium 10.5 Corrected Calcium 10.5 H Phosphorus 3.3 Magnesium 2.2 Total Bilirubin 3.8 H D AST 34 ALT 14 Alkaline Phosphatase 51 D Total Protein 7.5 Albumin 4.9 H Globulin 2.6 Albumin/Globulin Ratio 1.9 Misc Test Result Platelets confirmed ABG Interpretation ABG results: 02/17/25 02/17/25 02/18/25 06:45 13:12 04:57 ABG pH 7.52 H 7.49 H 7.53 H ABG pCO2 36 38 31 L ABG pO2 88 171 H D 157 H ABG HCO3 30 H 29 H 26 ABG O2 Saturation 99 H 101 H 99 H ABG Base Excess 6 H 5 H 3 02/19/25 02/20/25 04:49 04:29 ABG pH 7.46 H 7.41 ABG pCO2 35 36 ABG pO2 136 H D 90 D ABG HCO3 25 23 ABG O2 Saturation 100 H 98 ABG Base Excess 2 -2 Quality Measures Quality Measures stroke Suspected type of Stroke: Non Acute Last known well (date): 02/16/25 Last known well (time): 21:00 Tenecteplase given: Reason(s) Tenecteplase not given: Outside the time window not given Rehab services: PT evaluation ordered VTE Prophylaxis: mechanical Antithrombotic by day 2:: ordered Statin ordered: >75 y/o moderate or high intensity dose Anticoagulation ordered for A-fib or flutter (current or hx): ordered Advance care planning discussed with:: patient and spouse Assessment & Plan Assessment Current Active Medications: Generic Name Dose Route Start Last Admin Trade Name Kendal PRN Reason Stop Dose Admin Acetaminophen 650 mg 02/17/25 11:20 Acetaminophen 325 Mg Tablet PO 03/19/25 11:19 Q6H PRN Fever >101.5 Dextrose 25 ml 02/17/25 11:24 Dextrose 50%-Water Inj 50 Ml Syringe IV 03/19/25 11:23 Q15MIN PRN BG 50-70 responsive npo pt Dextrose 50 ml 02/17/25 11:24 Dextrose 50%-Water Inj 50 Ml Syringe IV 03/19/25 11:23 Q15MIN PRN BG <50 OR BG <70 & pt unresponsive Furosemide 40 mg 02/20/25 09:45 02/20/25 09:57 Furosemide 40 Mg Tablet PO 03/22/25 09:44 40 mg QDAY WAYNE Administration Glucagon 1 mg 02/17/25 11:24 Glucagon Inj 1 Mg Vial IM Q15MIN PRN BG <70, and no IV access Heparin Sodium (Porcine) 5,000 unit 02/17/25 14:00 02/20/25 14:32 Heparin Sod Inj 5000 Unit/Ml Vial SC 03/03/25 13:59 5,000 unit Q8HR WAYNE Administration Ceftriaxone Sodium/Dextrose 1 gm in 50 mls @ 100 mls/hr 02/18/25 09:00 02/20/25 09:24 Rocephin/D5w 1gm Iv Premix IV 02/25/25 08:59 Infused QDAY WAYNE Infusion Octreotide Acetate 1,000 mcg/ 102 mls @ 5.1 mls/hr 02/18/25 08:00 02/20/25 00:30 Sodium Chloride IV 03/20/25 07:59 50 mcg/hr .Q20H WAYNE 5.1 mls/hr Protocol Administration 50 MCG/HR Insulin Degludec 15 unit 02/19/25 09:00 02/20/25 08:50 Insulin Degludec 5 Unit/0.05 Ml (Per 5 Units) SC 03/21/25 08:59 15 unit QDAY WAYNE Administration Insulin Human Lispro 0 unit 02/20/25 17:00 Insulin Lispro (Admelog) 1 Unit/0.01 Ml Unit SC 03/22/25 16:59 AC WAYNE Protocol Labetalol HCl 10 mg 02/17/25 06:18 Labetalol Inj 5 Mg/Ml Vial 4 Ml IVP Q15M PRN hypertension Lactulose 20 gm 02/20/25 21:00 Lactulose Syrup 20 Gm/30 Ml Udc NG 03/22/25 20:59 BID [facility] Protocol Midodrine 5 mg 02/18/25 10:01 02/20/25 14:35 Midodrine 5 Mg Tablet PO 03/20/25 09:59 Not Given TID WAYNE Ondansetron HCl 4 mg 02/17/25 11:20 Ondansetron Inj 2 Mg/Ml Inj 2 Ml IVP 03/19/25 11:19 Q6H PRN NAUSEA OR VOMITING Protocol Pantoprazole Sodium 40 mg 02/18/25 09:00 02/20/25 08:54 Pantoprazole Inj 40 Mg Vial IVP 03/20/25 08:59 40 mg QDAY WAYNE Administration Rifaximin 550 mg 02/17/25 11:30 02/20/25 09:57 Rifaximin 550 Mg Tablet NG 02/24/25 11:29 550 mg BID WAYNE Administration Spironolactone 25 mg 02/20/25 09:45 02/20/25 09:57 Spironolactone 25 Mg Tablet PO 03/22/25 09:44 25 mg BID WAYNE Administration Trimethoprim/Sulfamethoxazole 1 tab 02/20/25 09:45 02/20/25 09:57 Trimethoprim/Sulfa 160/800 Ds Tablet PO 02/27/25 09:44 1 tab QDAY WAYNE Administration Plan 64F with decompensated cirrhosis and IDDM2, ICU course for GCS 3 from hepatic encephalopathy, now clinically improved, extubated, euvolemic, worsening hypernatremia, and completing empiric ceftriaxone and octreotide for variceal/SBP prophylaxis. #Acute encephalopathy, resolved Likely hepatic encephalopathy/hyperammonemia > stroke. Mentation normalized. Plan: * Continue lactulose 20 g PO BID, down from 30 TID due to increased BM * Continue rifaximin 550 mg PO BID (started 02/17/2025) * Goal 2?3 soft BMs/day * Cancelled MRI in ICU due to normal neuro exam, no EEG unless mentation worsens * Avoid sedatives/QTc-prolonging meds #Variceal bleed concern, no active bleed Empiric treatment/prophylaxis window finishing. Plan: * Continue IV octreotide 50 mcg/hr infusion (02/17/2025 ? 5 days total -> stop 02/21/2025) * Continue IV pantoprazole 40 mg BID (started 02/17/2025) * Continue IV Ceftriaxone 1 g qday (started 02/17/2025) for SBP and variceal prophylaxis, total 5 days -> last dose 02/21/2025 * Rectal tube removed on downgrade * Monitor for oral/GI bleeding (roof laceration healing) #Aspiration pneumonitis CXR with congestion + aspiration risk during encephalopathy. ICU sputum grew Enterococcus, sensitive to levofloxacin/Bactrim -> using Bactrim due to QTc. Plan: * Continue Bactrim DS 1 tablet PO daily (started 02/19- ) * Wean O2 as tolerated, recheck sats #Hypernatremia / hyperchloremia From high stool output and poor PO intake. Na peaked 156 in ICU, encouraged to PO increase intake of fluids. D5W not started as patient xray looks congested and icu did not want to exacerbate that Plan: * Encourage PO water (now extubated) * Recheck sodium this afternoon * Continue daily BMP until stable #IGNACIO on CKD, improving Pre-renal from diuretics +/- HRS considered in ICU, but urine output remained good. Cr improved. Plan: * No albumin now * Avoid nephrotoxins * Strict I/Os * Continue midodrine #Hypotension / hypertension ? resolved Hemodynamics stabilized, now off pressors. Plan: * Labetalol 20 mg IV PRN if SBP >160 * Monitor BP. #Electrolyte-related arrhythmias (VTach self-resolved, PVCs) Triggered by hypokalemia from multiple BMs -> resolved after repletion. Plan: Keep K >4, Mg >2, telemetry, replete PRN. #IDDM2 Hyperglycemia treated in ED/ICU -> downtrending glucose. A1C 7.3. Plan: * Continue Degludec 15 U + SSI step 2 * Glucose checks q6h, adjust PRN. #Aortic stenosis ? mild to moderate (chronic) No acute intervention needed. Plan: Continue outpatient cardio follow-up with Dr. Clark. #Chronic leukopenia & thrombocytopenia (hypersplenism) WBC baseline 2?3, Plt 40?70s chronically. No acute treatment. Plan: Outpatient heme/onc follow-up #Iron deficiency anemia (chronic) Iron panel low; PO iron held in ICU. Plan: Restart when reliably taking PO #Hyperbilirubinemia (chronic) Bili chronically high US: sludge ball, no cholecystitis, normal CBD/portal flow. Plan: * Monitor AM CMP * Watch RUQ pain or worsening jaundice. Health Maintenance: Disposition: Tele Diet: Clear liquids advance as tolerated GI ppx: Pantoprazole Pugh: removed NG: removed Code status: FULL Telemetry: continue for electrolyte/NSVT history ----- Plan discussed with attending physician Dr. Caitlin Batres MD PGY-1 Internal Medicine Attending Provider Attestation/Addendum I have examined the patient, reviewed labs and imaging findings, discussed the case with the resident(s), and reviewed entered orders. I agree with the plan of care as outlined in this note. Dr. Caitlin MD
--- NOTE | 2025-02-20 17:37 | PD.IMPROG ---
Documentation for date of: 02/20/25 Subjective Subjective Interval history: Patient evaluated more alert BUN/creatinine 48 and 1.8 coming down extubated Hemoglobin hematocrit 8.6 and 25.6 Exam Vital Signs Temp Pulse Resp BP Pulse Ox O2 Del Method FiO2 97.6 F 62 24 H 123/64 99 Room Air 02/20/25 12:00 02/20/25 16:00 02/20/25 15:00 02/20/25 15:00 02/20/25 15:00 02/20/25 12:00 02/20/25 08:31 Objective Labs 02/20/25 04:32 02/20/25 04:32 Labs: Laboratory Results - last 24 hr 02/17/25 02/18/25 02/18/25 07:10 04:50 19:23 WBC RBC Hgb Hct MCV MCH MCHC RDW Std Deviation Plt Count Neut % (Auto) Lymph % (Auto) [place] % (Auto) Eos % (Auto) Baso % (Auto) Neut # (Auto) Lymph # (Auto) [place] # (Auto) Eos # (Auto) Baso # (Auto) Immature Gran # (Auto) Absolute Nucleated RBC Immature Gran % Nucleated RBC % Puncture Site ABG pH ABG pCO2 ABG pO2 ABG HCO3 ABG O2 Saturation ABG Base Excess FiO2 Sodium Potassium Chloride Carbon Dioxide Anion Gap BUN Creatinine 1.8 H 2.0 H 2.4 H Estim Creat Clear Calc 25.4 L 22.9 L 19.1 L eGFR BUN/Creatinine Ratio Glucose Calculated Osmolality Calcium Corrected Calcium Phosphorus Magnesium Total Bilirubin AST ALT Alkaline Phosphatase Total Protein Albumin Globulin Albumin/Globulin Ratio Misc Test Result 02/19/25 02/19/25 02/19/25 05:20 14:32 20:40 WBC RBC Hgb Hct MCV MCH MCHC RDW Std Deviation Plt Count Neut % (Auto) Lymph % (Auto) [place] % (Auto) Eos % (Auto) Baso % (Auto) Neut # (Auto) Lymph # (Auto) [place] # (Auto) Eos # (Auto) Baso # (Auto) Immature Gran # (Auto) Absolute Nucleated RBC Immature Gran % Nucleated RBC % Puncture Site ABG pH ABG pCO2 ABG pO2 ABG HCO3 ABG O2 Saturation ABG Base Excess FiO2 Sodium 153 H Potassium 4.1 D Chloride 117 H Carbon Dioxide 24.3 Anion Gap 12 BUN 50 H Creatinine 2.2 H 2.4 H 2.1 H Estim Creat Clear Calc 20.8 L 19.1 L 21.8 L eGFR 26 L BUN/Creatinine Ratio 24 H Glucose 98 D Calculated Osmolality 316 H Calcium 10.6 Corrected Calcium 10.6 H Phosphorus 1.8 L Magnesium Total Bilirubin AST ALT Alkaline Phosphatase Total Protein Albumin 4.8 Globulin Albumin/Globulin Ratio Misc Test Result 02/20/25 02/20/25 04:29 04:32 WBC 3.2 L RBC 2.46 L Hgb 8.6 L Hct 25.6 L MCV 104 H MCH 35.0 MCHC 33.6 RDW Std Deviation 60.9 H Plt Count 30 L Neut % (Auto) 58 Lymph % (Auto) 26 [place] % (Auto) 13 H Eos % (Auto) 2 Baso % (Auto) 0 Neut # (Auto) 1.9 Lymph # (Auto) 0.9 L [place] # (Auto) 0.4 Eos # (Auto) 0.1 Baso # (Auto) 0.0 Immature Gran # (Auto) 0.01 H Absolute Nucleated RBC 0.00 Immature Gran % 0 Nucleated RBC % 0 Puncture Site Left Radial ABG pH 7.41 ABG pCO2 36 ABG pO2 90 D ABG HCO3 23 ABG O2 Saturation 98 ABG Base Excess -2 FiO2 25 Sodium 156 H Potassium 4.4 Chloride 120 H Carbon Dioxide 22.1 Anion Gap 14 BUN 45 H Creatinine 1.8 H Estim Creat Clear Calc 25.4 L eGFR 31 L BUN/Creatinine Ratio 25 H Glucose 155 H D Calculated Osmolality 323 H Calcium 10.5 Corrected Calcium 10.5 H Phosphorus 3.3 Magnesium 2.2 Total Bilirubin 3.8 H D AST 34 ALT 14 Alkaline Phosphatase 51 D Total Protein 7.5 Albumin 4.9 H Globulin 2.6 Albumin/Globulin Ratio 1.9 Misc Test Result Platelets confirmed Impressions Impression: Acute hepatic encephalopathy resolving patient extubated Renal function improving COLE cirrhosis/cryptogenic cirrhosis Continue current management ABG Interpretation ABG results: 02/17/25 02/17/25 02/18/25 06:45 13:12 04:57 ABG pH 7.52 H 7.49 H 7.53 H ABG pCO2 36 38 31 L ABG pO2 88 171 H D 157 H ABG HCO3 30 H 29 H 26 ABG O2 Saturation 99 H 101 H 99 H ABG Base Excess 6 H 5 H 3 02/19/25 02/20/25 04:49 04:29 ABG pH 7.46 H 7.41 ABG pCO2 35 36 ABG pO2 136 H D 90 D ABG HCO3 25 23 ABG O2 Saturation 100 H 98 ABG Base Excess 2 -2 Assessment & Plan A&P Narrative # Hepatic encephalopathy requiring endotracheal intubation and mechanical ventilation 2 protect the airway On lactulose and rifaximin continue both # End-stage liver disease secondary to [place] cirrhosis in the process of liver transplant evaluation as per the insurance carrier [facility] which is [facility] # Aortic stenosis under the care of vice president payment Will follow the patient Thank you very much for the opportunity to participate in the care of this patient Time Spent With Patient Time: Total time spent is greater than 50% in coordination of care (as documented) at patient's floor/unit and/or counseling patient:
[2025-02-20 17:41] LABS: Albumin, Serum 4.9 gm/dL (3.4-4.8); Anion Gap 13 (7-16); BUN/Creatinine Ratio 25 Ratio (12-20); Blood Urea Nitrogen 49 mg/dL (9-23); Calcium 10.1 mg/dL (8.3-10.6); Calcium (Corrected) 10.1 mg/dL (8.5-10.1); Carbon Dioxide 21.0 mMol/L (20.0-31.0); Chloride 116 mMol/L (98-107); Creatinine (Component) 2.0 mg/dL (0.6-1.3); Estimated Creatinine Clearance 22.9 mL/min (>60); Glucose 274 mg/dL (74-106); Osmolality,Calculated 321 (275-295); Phosphorous 1.4 mg/dL (2.4-5.1); Potassium 4.0 mMol/L (3.4-5.1); Sodium 150 mMol/L (136-145); eGFR 27 See Note
[2025-02-20] MEDS: MIDODRINE 5 MG TABLET PO (21:07)
[2025-02-20] MEDS: LACTULOSE SYRUP 20 GM/30 ML UDC PO (21:07)
[2025-02-21] VITALS (13 sets, daily range): BP systolic 114–146; BP diastolic 45–62; PULSE 49–70; RESP 18–100; TEMP 37.2; O2SAT 100; BMI 21.3
[2025-02-21] MEDS: MIDODRINE 5 MG TABLET PO (05:14)
[2025-02-21] MEDS: HEPARIN SOD INJ 5000 UNIT/ML VIAL SC ×3 (05:17→21:16)
[2025-02-21 06:51] LABS: Basophils # (Auto) 0.0 Thou/mm3 (0.0-0.2); Basophils % (Auto) 0 % (0-2.5); Eosinophils # (Auto) 0.1 Thou/mm3 (0.0-0.5); Eosinophils % (Auto) 4 % (0-10); Hematocrit 26.8 % (36.0-46.0); Hemoglobin 9.1 g/dL (12.0-16.0); Immature Granulocytes Auto 0.03 Thou/mm3 (0.00-0.00); Lymphocytes # (Auto) 0.8 Thou/mm3 (1.0-4.8); Lymphocytes % (Auto) 27 % (10-50); Mean Corpuscular HGB Conc 34.0 g/dl (31.0-37.0); Mean Corpuscular Hemoglobin 34.9 pg (25.0-35.0); Mean Corpuscular Volume 103 fL (80-100); Monocytes # (Auto) 0.3 Thou/mm3 (0.0-0.8); Monocytes % (Auto) 10 % (0-12); Neutrophils # (Auto) 1.8 Thou/mm3 (1.8-7.7); Neutrophils % (Auto) 58 % (37-80); Nucleated Red Blood Cell # 0.00 Thou/mm3 (0.00-0.00); Nucleated Red Blood Cell % 0 /100 WBC (0); RDW Standard Deviation 57.1 fL (36.4-46.3); Red Blood Count 2.61 Miln/mm3 (4.00-5.20); White Blood Count 3.1 Thou/mm3 (3.6-11.0)
[2025-02-21 06:52] LABS: Alanine Aminotransferase 13 U/L (10-49); Albumin, Serum 4.7 gm/dL (3.4-4.8); Albumin/Globulin Ratio 1.6 (1.2-2.2); Alkaline Phosphatase 49 U/L (46-116); Anion Gap 12 (7-16); Aspartate Amino Transferase 39 U/L (0-34); BUN/Creatinine Ratio 26 Ratio (12-20); Bilirubin,Total 4.4 mg/dL (0.3-1.2); Blood Urea Nitrogen 49 mg/dL (9-23); Calcium 10.5 mg/dL (8.3-10.6); Calcium (Corrected) 10.5 mg/dL (8.5-10.1); Carbon Dioxide 21.9 mMol/L (20.0-31.0); Chloride 114 mMol/L (98-107); Creatinine (Component) 1.9 mg/dL (0.6-1.3); Estimated Creatinine Clearance 24.1 mL/min (>60); Globulin 2.9 gm/dL (2.3-3.5); Glucose 140 mg/dL (74-106); Magnesium 2.1 mg/dL (1.6-2.6); Osmolality,Calculated 309 (275-295); Phosphorous 1.9 mg/dL (2.4-5.1); Potassium 4.5 mMol/L (3.4-5.1); Sodium 148 mMol/L (136-145); Total Protein 7.6 gm/dL (5.7-8.2); eGFR 29 See Note
[2025-02-21 07:09] LABS: Platelet Count 30 Thou/mm3 (140-440)
[2025-02-21 08:02] LABS: Slide Review Platelets confirmed
[2025-02-21] MEDS: TRIMETHOPRIM/SULFA 160/800 DS TABLET 1 TAB PO (09:17)
[2025-02-21] MEDS: cefTRIAXone/D5w 1gm IV premix 1 GM/50 ML BAG IV (09:17)
[2025-02-21] MEDS: SPIRONOLACTONE 25 MG TABLET PO ×2 (09:17→21:15)
[2025-02-21] MEDS: LACTULOSE SYRUP 20 GM/30 ML UDC PO ×2 (09:18→21:15)
[2025-02-21] MEDS: INSULIN DEGLUDEC 5 UNIT/0.05 ML (PER 5 UNITS) 15 UNIT SC (09:18)
[2025-02-21] MEDS: NAPH,KPH MBDB 1 PACKET (1.5 GM) PO (09:35)
--- NOTE | 2025-02-21 10:27 | ESPR_ITS ---
Documentation for date of: 02/21/25 Subjective Subjective Interval history: Seen at bedside this AM. Patient is alert but not fully oriented (oriented to self not time or place). Reports no pain, breathing comfortably. Tolerating current clear/advanced diet without nausea or vomiting. Continues to drink and tolerate increased PO water as encouraged. No acute complaints. Exam Vital Signs Temp Pulse Resp BP Pulse Ox O2 Del Method FiO2 97.6 F 70 18 146/56 H 100 Room Air 25 02/20/25 12:00 02/21/25 09:17 02/21/25 06:35 02/21/25 09:17 02/20/25 16:00 02/20/25 12:00 02/20/25 08:31 Narrative Exam General: A&O ?3, NAD, no respiratory distress HEENT: Icteric sclera, moist mucosa, superficial mouth laceration healing, no active bleed Neck: Supple, no masses, no meningeal signs Lungs: Clear bilaterally, non-labored Heart: RRR, systolic murmur from known , no new arrhythmia on my interpretation today Abdomen: Soft, non-tender, non-distended, no guarding or rigidity MSK: Peripheral pulses intact, no edema Neuro: Moving all extremities, no new focal deficits, sensory intact Psych: Cooperative, appropriate mood/affect Objective Labs 02/22/25 05:11 02/22/25 05:11 Labs: Laboratory Results - last 24 hr 02/20/25 02/21/25 17:08 04:50 WBC 3.1 L RBC 2.61 L Hgb 9.1 L Hct 26.8 L MCV 103 H MCH 34.9 MCHC 34.0 RDW Std Deviation 57.1 H Plt Count 30 L Neut % (Auto) 58 Lymph % (Auto) 27 [place] % (Auto) 10 Eos % (Auto) 4 Baso % (Auto) 0 Neut # (Auto) 1.8 Lymph # (Auto) 0.8 L [place] # (Auto) 0.3 Eos # (Auto) 0.1 Baso # (Auto) 0.0 Immature Gran # (Auto) 0.03 H Absolute Nucleated RBC 0.00 Immature Gran % 1 H Nucleated RBC % 0 Sodium 150 H 148 H Potassium 4.0 4.5 D Chloride 116 H 114 H Carbon Dioxide 21.0 21.9 Anion Gap 13 12 BUN 49 H 49 H Creatinine 2.0 H 1.9 H Estim Creat Clear Calc 22.9 L 24.1 L eGFR 27 L 29 L BUN/Creatinine Ratio 25 H 26 H Glucose 274 H D 140 H D Calculated Osmolality 321 H 309 H Calcium 10.1 10.5 Corrected Calcium 10.1 10.5 H Phosphorus 1.4 L 1.9 L Magnesium 2.1 Total Bilirubin 4.4 H D AST 39 H ALT 13 Alkaline Phosphatase 49 Total Protein 7.6 Albumin 4.9 H 4.7 Globulin 2.9 Albumin/Globulin Ratio 1.6 Misc Test Result Platelets confirmed ABG Interpretation ABG results: 02/17/25 02/17/25 02/18/25 06:45 13:12 04:57 ABG pH 7.52 H 7.49 H 7.53 H ABG pCO2 36 38 31 L ABG pO2 88 171 H D 157 H ABG HCO3 30 H 29 H 26 ABG O2 Saturation 99 H 101 H 99 H ABG Base Excess 6 H 5 H 3 02/19/25 02/20/25 04:49 04:29 ABG pH 7.46 H 7.41 ABG pCO2 35 36 ABG pO2 136 H D 90 D ABG HCO3 25 23 ABG O2 Saturation 100 H 98 ABG Base Excess 2 -2 Quality Measures Quality Measures stroke Suspected type of Stroke: Non Acute Last known well (date): 02/16/25 Last known well (time): 21:00 Tenecteplase given: Reason(s) Tenecteplase not given: Outside the time window not given Rehab services: PT evaluation ordered VTE Prophylaxis: mechanical Antithrombotic by day 2:: not indicated (describe) Statin ordered: >75 y/o moderate or high intensity dose Anticoagulation ordered for A-fib or flutter (current or hx): ordered Advance care planning discussed with:: patient and spouse Assessment & Plan Assessment Current Active Medications: Generic Name Dose Route Start Last Admin Trade Name Freq PRN Reason Stop Dose Admin Acetaminophen 650 mg 02/17/25 11:20 Acetaminophen 325 Mg Tablet PO 03/19/25 11:19 Q6H PRN Fever >101.5 Dextrose 25 ml 02/17/25 11:24 Dextrose 50%-Water Inj 50 Ml Syringe IV 03/19/25 11:23 Q15MIN PRN BG 50-70 responsive npo pt Dextrose 50 ml 02/17/25 11:24 Dextrose 50%-Water Inj 50 Ml Syringe IV 03/19/25 11:23 Q15MIN PRN BG <50 OR BG <70 & pt unresponsive Furosemide 40 mg 02/20/25 09:45 02/21/25 09:16 Furosemide 40 Mg Tablet PO 03/22/25 09:44 40 mg QDAY WAYNE Administration Glucagon 1 mg 02/17/25 11:24 Glucagon Inj 1 Mg Vial IM Q15MIN PRN BG <70, and no IV access Heparin Sodium (Porcine) 5,000 unit 02/17/25 14:00 02/21/25 05:17 Heparin Sod Inj 5000 Unit/Ml Vial SC 03/03/25 13:59 5,000 unit Q8HR WAYNE Administration Ceftriaxone Sodium/Dextrose 1 gm in 50 mls @ 100 mls/hr 02/18/25 09:00 02/21/25 09:17 Rocephin/D5w 1gm Iv Premix IV 02/25/25 08:59 100 mls/hr QDAY WAYNE Administration Octreotide Acetate 1,000 mcg/ 102 mls @ 5.1 mls/hr 02/18/25 08:00 02/20/25 21:23 Sodium Chloride IV 03/20/25 07:59 50 mcg/hr .Q20H WAYNE 5.1 mls/hr Protocol Administration 50 MCG/HR Insulin Degludec 15 unit 02/19/25 09:00 02/21/25 09:18 Insulin Degludec 5 Unit/0.05 Ml (Per 5 Units) SC 03/21/25 08:59 15 unit QDAY WAYNE Administration Insulin Human Lispro 0 unit 02/20/25 17:00 02/21/25 07:52 Insulin Lispro (Admelog) 1 Unit/0.01 Ml Unit SC 03/22/25 16:59 Not Given AC WAYNE Protocol Labetalol HCl 10 mg 02/17/25 06:18 Labetalol Inj 5 Mg/Ml Vial 4 Ml IVP Q15M PRN hypertension Lactulose 20 gm 02/20/25 21:00 02/21/25 09:18 Lactulose Syrup 20 Gm/30 Ml Udc PO 03/22/25 20:59 20 gm BID WAYNE Administration Protocol Midodrine 10 mg 02/21/25 14:00 Midodrine 5 Mg Tablet PO 03/23/25 13:59 TID WAYNE Ondansetron HCl 4 mg 02/17/25 11:20 Ondansetron Inj 2 Mg/Ml Inj 2 Ml IVP 03/19/25 11:19 Q6H PRN NAUSEA OR VOMITING Protocol Pantoprazole Sodium 40 mg 02/18/25 09:00 02/21/25 09:17 Pantoprazole Inj 40 Mg Vial IVP 03/20/25 08:59 40 mg QDAY WAYNE Administration Rifaximin 550 mg 02/20/25 21:00 02/21/25 09:16 Rifaximin 550 Mg Tablet PO 02/27/25 20:59 550 mg BID WAYNE Administration Spironolactone 25 mg 02/20/25 09:45 02/21/25 09:17 Spironolactone 25 Mg Tablet PO 03/22/25 09:44 25 mg BID WAYNE Administration Trimethoprim/Sulfamethoxazole 1 tab 02/20/25 09:45 02/21/25 09:17 Trimethoprim/Sulfa 160/800 Ds Tablet PO 02/27/25 09:44 1 tab QDAY WAYNE Administration Plan 64F ICU downgrade for hepatic encephalopathy, now clinically stable, alert, tolerating diet, drinking water with improving IGNACIO and resolving hypernatremia, without bleeding symptoms or hemodynamic compromise today. #Acute encephalopathy, resolved Likely hepatic encephalopathy/hyperammonemia > stroke. Mentation normalized. Plan: * Continue lactulose 20 g PO BID, down from 30 TID due to increased BM * Continue rifaximin 550 mg PO BID (started 02/17/2025) * Goal 2?3 soft BMs/day * Cancelled MRI in ICU due to normal neuro exam, no EEG unless mentation worsens * Avoid sedatives/QTc-prolonging meds #Variceal bleed concern, no active bleed Empiric treatment/prophylaxis window finishing. Plan: * Continue IV octreotide 50 mcg/hr infusion (02/17/2025 ? 5 days total -> stop 02/21/2025) * Continue IV pantoprazole 40 mg BID (started 02/17/2025) * Continue IV Ceftriaxone 1 g qday (started 02/17/2025) for SBP and variceal prophylaxis, total 5 days -> last dose 02/21/2025 * Rectal tube removed on downgrade * Monitor for oral/GI bleeding (roof laceration healing) #Aspiration pneumonitis CXR with congestion + aspiration risk during encephalopathy. ICU sputum grew Enterococcus, sensitive to levofloxacin/Bactrim -> using Bactrim due to QTc. Plan: * Continue Bactrim DS 1 tablet PO daily (started 02/19- ) * Wean O2 as tolerated, recheck sats #Hypernatremia / hyperchloremia From high stool output and poor PO intake. Na peaked 156 in ICU, encouraged to PO increase intake of fluids. D5W not started as patient xray looks congested and icu did not want to exacerbate that Na this morning 148. Chloride 114. Plan: * Encourage PO water (now extubated) * Recheck sodium this afternoon * Continue daily BMP until stable #IGNACIO on CKD, improving Pre-renal from diuretics +/- HRS considered in ICU, but urine output remained good. Cr improved. Plan: * No albumin now * Avoid nephrotoxins * Strict I/Os * Continue midodrine #Hypotension / hypertension ? resolved Hemodynamics stabilized, now off pressors. Plan: * Labetalol 20 mg IV PRN if SBP >160 * Monitor BP. #Electrolyte-related arrhythmias (VTach self-resolved, PVCs) Triggered by hypokalemia from multiple BMs -> resolved after repletion. Plan: Keep K >4, Mg >2, telemetry, replete PRN. #IDDM2 Hyperglycemia treated in ED/ICU -> downtrending glucose. A1C 7.3. Plan: * Continue Degludec 15 U + SSI step 2 * Glucose checks q6h, adjust PRN. #Aortic stenosis ? mild to moderate (chronic) No acute intervention needed. Plan: Continue outpatient cardio follow-up with Dr. Clark. #Chronic leukopenia & thrombocytopenia (hypersplenism) WBC baseline 2?3, Plt 40?70s chronically. No acute treatment. Plan: Outpatient heme/onc follow-up #Iron deficiency anemia (chronic) Iron panel low; PO iron held in ICU. Plan: Restart when reliably taking PO #Hyperbilirubinemia (chronic) Bili chronically high US: sludge ball, no cholecystitis, normal CBD/portal flow. Plan: * Monitor AM CMP * Watch RUQ pain or worsening jaundice. Health Maintenance: Disposition: Tele Diet: Clear liquids advance as tolerated GI ppx: Pantoprazole Pugh: removed NG: removed Code status: FULL Telemetry: continue for electrolyte/NSVT history ----- Plan discussed with attending physician Dr. Caitlin Batres MD PGY-1 Internal Medicine Attending Provider Attestation/Addendum I have examined the patient, reviewed labs and imaging findings, discussed the case with the resident(s), and reviewed entered orders. I agree with the plan of care as outlined in this note, with these additional summaries/recommendations: Patient and patient's seen at bedside. No acute overnight events. Patient continues to have hepatic encephalopathy although significantly improved and per at bedside patient is trending towards her baseline mental status. Continue lactulose and rifaximin for hepatic encephalopathy. 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 In-house gastroenterology following. Evidence of synthetic liver dysfunction. Per patient's they have upcoming appointment at transplant center. Continue volume management with daily Lasix and spironolactone. Outpatient follow-up for vaccine series. Continue octreotide and IV Rocephin. Continue midodrine for hypotension. Continue IV antibiotics for aspiration pneumonitis/pneumonia. Hypernatremia improving and patient encouraged to increase her oral intake. Continue insulin sliding scale for diabetes mellitus type 2 with Accu-Cheks. Target blood sugar of 140 180 while hospitalized. Order physical therapy evaluation. Patient and patient's updated on the plan. All questions answered to satisfaction. Please see residents note for additional details and management. Dr. Caitlin MD
[2025-02-21] MEDS: INSULIN LISPRO (AdmeLOG) 1 UNIT/0.01 ML UNIT SC ×2 (12:54→17:37)
--- NOTE | 2025-02-21 13:46 | PD.IMPROG ---
Documentation for date of: 02/21/25 Subjective Subjective Interval history: Patient evaluated Hemoglobin hematocrit 9.1 and 26.8 Platelet count of 30K Exam Vital Signs Temp Pulse Resp BP Pulse Ox O2 Del Method FiO2 97.6 F 70 18 146/56 H 100 Room Air 25 02/20/25 12:00 02/21/25 09:17 02/21/25 06:35 02/21/25 09:17 02/20/25 16:00 02/20/25 12:00 02/20/25 08:31 Objective Labs 02/21/25 04:50 02/21/25 04:50 Labs: Laboratory Results - last 24 hr 02/20/25 02/21/25 17:08 04:50 WBC 3.1 L RBC 2.61 L Hgb 9.1 L Hct 26.8 L MCV 103 H MCH 34.9 MCHC 34.0 RDW Std Deviation 57.1 H Plt Count 30 L Neut % (Auto) 58 Lymph % (Auto) 27 [place] % (Auto) 10 Eos % (Auto) 4 Baso % (Auto) 0 Neut # (Auto) 1.8 Lymph # (Auto) 0.8 L [place] # (Auto) 0.3 Eos # (Auto) 0.1 Baso # (Auto) 0.0 Immature Gran # (Auto) 0.03 H Absolute Nucleated RBC 0.00 Immature Gran % 1 H Nucleated RBC % 0 Sodium 150 H 148 H Potassium 4.0 4.5 D Chloride 116 H 114 H Carbon Dioxide 21.0 21.9 Anion Gap 13 12 BUN 49 H 49 H Creatinine 2.0 H 1.9 H Estim Creat Clear Calc 22.9 L 24.1 L eGFR 27 L 29 L BUN/Creatinine Ratio 25 H 26 H Glucose 274 H D 140 H D Calculated Osmolality 321 H 309 H Calcium 10.1 10.5 Corrected Calcium 10.1 10.5 H Phosphorus 1.4 L 1.9 L Magnesium 2.1 Total Bilirubin 4.4 H D AST 39 H ALT 13 Alkaline Phosphatase 49 Total Protein 7.6 Albumin 4.9 H 4.7 Globulin 2.9 Albumin/Globulin Ratio 1.6 Misc Test Result Platelets confirmed Impressions Impression: Acute hepatic encephalopathy improving patient extubated 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 CKD Continue current management ABG Interpretation ABG results: 02/17/25 02/17/25 02/18/25 06:45 13:12 04:57 ABG pH 7.52 H 7.49 H 7.53 H ABG pCO2 36 38 31 L ABG pO2 88 171 H D 157 H ABG HCO3 30 H 29 H 26 ABG O2 Saturation 99 H 101 H 99 H ABG Base Excess 6 H 5 H 3 02/19/25 02/20/25 04:49 04:29 ABG pH 7.46 H 7.41 ABG pCO2 35 36 ABG pO2 136 H D 90 D ABG HCO3 25 23 ABG O2 Saturation 100 H 98 ABG Base Excess 2 -2 Assessment & Plan A&P Narrative # Hepatic encephalopathy requiring endotracheal intubation and mechanical ventilation 2 protect the airway On lactulose and rifaximin continue both # 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
--- NOTE | 2025-02-21 14:28 | PC.SS ---
Rounding Note: Patient downgraded from ICU on 02-20-25. Plan is to d/c tomorrow.
--- NOTE | 2025-02-21 18:13 | PD.RESCONSUL ---
HPI Data of Consult Requesting Physician: Sahil Clark MD Admitting Provider: Heather Story MD Attending Provider: Sahil Clark MD Primary Care Provider: Kaylie Montes MD Consult Narrative History of present illness: History of Present Illness The patient is a 64-year-old female with PMH of IDDM 2, decompensated cirrhosis of unknown etiology, heart failure with preserved ejection fraction (HFpEF) with an ejection fraction of 65%, moderate aortic stenosis, and a history of esophageal varices presented to the emergency department on 02/17 with AMS. Due to the patient being intubated upon examination, her history was obtained from her . According to her , the patient was responsive at approximately 1:45 AM when the glucose monitor alarm activated. However, when he attempted to wake her at 5:45 AM, she was unresponsive to verbal stimuli but did withdraw from painful stimuli. An ambulance was called, and the patient?s [place] Coma Scale (GCS) score was 7 upon EMS arrival. There was no reported history of seizures or strokes. The patient was admitted to the ICU for acute encephalopathy secondary to hepatic encephalopathy, and was intubated due to her inability to protect her airway. On 02/20, patient stabilized and mental status close to baseline, and thus was downgraded from ICU. Patient has chronic mild to moderate aortic stenosis and follows Dr. Clark outpatient. Dr. Clark was consulted for further evaluation and care. ED course: Upon ED arrival, GCS decreased to 3. Per nurse, patient was noted to have left sided weakness and partial left facial droop (however notes this is normal for her when she is asleep). Patient was intubated. BP 94/54, RR 23. CBC showed WBC 2.8, hemoglobin 9.0, platelet 47,000, appear to be baseline for her as she has history of hypersplenism. Labs were remarkable for glucose 435, BHB 0.2, lactic acid 2.5-> 1.9, ammonia 251, anion gap and bicarb within normal limits. Given CFX x1 and insulin regular 5.[address] head and CTA were negative for acute changes. After sedation and paralytic wore off s/p intubation, patient became agitated and was unable to follow commands, was started on propofol and fentanyl drip for sedation. Was noted to be moving all 4 extremities. Past Medical History: as above Family History: Liver cancer in father and sister. Mother had CAD status post stents in her 70s. Surgical History: C section, bilateral carpal tunnel, right shoulder sx, right knee arthroplasty Social History: Denies history of smoking, denies current alcohol use, denies recreational drug use Medications: Spironolactone 50 mg daily, carvedilol 3.125 mg twice daily, simvastatin 10 mg 2 tablets nightly, Bumex 1 mg 2 tablets daily, ferrous sulfate 325 TID, insulin lantus 35 units, lispro 2 units with meals (Source: ) Allergies: No known drug allergies 02/21/2025: Labs reviewed and patient examined at the bedside. Patient currently on lactulose, Rifaximin, Spironolactone and lasix for cirrhosis and on Midodrine 1mg po tid for hypotension managment. Current BP is 146/56. Potassium 4.5, and Mag 2.1. Patient is alert but not fully back to baseline. Continue current diet and management. cc:: cc: Sahil Clark MD Review of Systems Review of Systems Narrative Review of Systems: All 12 systems assessed and the patient denies unless otherwise stated in HPI Exam Vital Signs Temp Pulse Resp BP Pulse Ox O2 Del Method FiO2 97.6 F 70 18 146/56 H 100 Room Air 02/20/25 12:00 02/21/25 09:17 02/21/25 06:35 02/21/25 09:17 02/20/25 16:00 02/20/25 12:00 02/20/25 08:31 Narrative Exam General: No acute distress, well nourished, AAO x2, Frail, Elderly Eye: Normal conjunctiva, no scleral icterus HENT: Normocephalic, atraumatic, hearing intact to conversation at normal volume, moist oral mucosa Neck: Supple, non-tender, no JVD, no lymphadenopathy Lungs: Non-labored respirations, symmetric chest rise, Clear to auscultate bilaterally, No wheezing, rhonchi, crackles Heart: Peripheral pulses intact bilaterally, Regular Rate and Rhythm. 4/6 systolic murmur Abdomen: Soft, non-tender, non-distended, no palpable masses Musculoskeletal: Normal range of motion and strength, No cyanosis or edema, No visible joint swelling Skin: Skin is warm, dry, no rashes or lesions. Psychiatric: Cooperative, appropriate mood and affect, Awake and alert, not agitated Neuro: Cranial nerves II-XII grossly intact. Sensations intact to light touch. Results Labs 02/22/25 05:11 02/22/25 05:11 Labs: Short CBC 02/21/25 Range/Units 04:50 WBC 3.1 L (3.6-11.0) Thou/mm3 Hgb 9.1 L (12.0-16.0) g/dL Hct 26.8 L (36.0-46.0) % Plt Count 30 L (140-440) Thou/mm3 BMP 02/21/25 04:50 Sodium 148 H Potassium 4.5 D Chloride 114 H Carbon Dioxide 21.9 BUN 49 H Creatinine 1.9 H Glucose 140 H D Calcium 10.5 Liver Function 02/21/25 Range/Units 04:50 Total Bilirubin 4.4 H D (0.3-1.2) mg/dL AST 39 H (0-34) U/L ALT 13 (10-49) U/L Alkaline Phosphatase 49 (46-116) U/L Albumin 4.7 (3.4-4.8) gm/dL ABG Interpretation ABG results: 02/17/25 02/17/25 02/18/25 06:45 13:12 04:57 ABG pH 7.52 H 7.49 H 7.53 H ABG pCO2 36 38 31 L ABG pO2 88 171 H D 157 H ABG HCO3 30 H 29 H 26 ABG O2 Saturation 99 H 101 H 99 H ABG Base Excess 6 H 5 H 3 02/19/25 02/20/25 04:49 04:29 ABG pH 7.46 H 7.41 ABG pCO2 35 36 ABG pO2 136 H D 90 D ABG HCO3 25 23 ABG O2 Saturation 100 H 98 ABG Base Excess 2 -2 Quality Measures Quality Measures stroke Suspected type of Stroke: Non Acute Last known well (date): 02/16/25 Last known well (time): 21:00 Tenecteplase given: Reason(s) Tenecteplase not given: Outside the time window not given Rehab services: PT evaluation ordered VTE Prophylaxis: pharmaceutical Antithrombotic by day 2:: contraindicated (describe) (Cirrhosis, Low platelets) Statin ordered: <75 y/o high intensity dose Anticoagulation ordered for A-fib or flutter (current or hx): contraindicated Advance care planning discussed with:: patient Medications Home Medications and Allergies Home Medications ?Medication ?Instructions ?Recorded ?Confirmed ?Type simvastatin 10 mg tablet (Zocor) 10 mg PO HS #0 tabs 12/07/15 02/21/25 History folic acid 1 mg tablet 1 mg PO QDAY 08/14/24 02/21/25 History albuterol sulfate 90 mcg/actuation 2 puff inhalation .COMPLEX sob 09/08/24 02/21/25 History aerosol inhaler bumetanide 1 mg tablet 1 mg PO QDAY 11/16/24 02/21/25 History carvedilol 3.125 mg tablet 3.125 mg PO BID 11/16/24 02/21/25 History Held on 02/22/25. Instructions: Resume on 03/05/25. until seen by PCP hydrocodone 5 mg-acetaminophen 325 0.5 tab PO TID PRN pain 11/16/24 02/21/25 History mg tablet spironolactone 50 mg tablet 50 mg PO DAILY 11/16/24 02/21/25 History Held on 02/22/25. Instructions: Resume on 03/04/25. until seen by Primary care physician to monitor blood pressure Allergies Allergy/AdvReac Type Severity Reaction Status Date / Time No Known Allergies Allergy Verified 11/16/24 08:07 Visit Medications Acetaminophen (Acetaminophen 325 Mg Tablet) 650 mg PO Q6H PRN PRN Reason: Fever >101.5 Stop: 03/19/25 11:19 Dextrose (Dextrose 50%-Water Inj 50 Ml Syringe) 25 ml IV Q15MIN PRN PRN Reason: BG 50-70 responsive npo pt Stop: 03/19/25 11:23 Dextrose (Dextrose 50%-Water Inj 50 Ml Syringe) 50 ml IV Q15MIN PRN PRN Reason: BG <50 OR BG <70 & pt unresponsive Stop: 03/19/25 11:23 Furosemide (Furosemide 40 Mg Tablet) 40 mg PO QDAY [facility] Stop: 03/22/25 09:44 Last Admin: 02/21/25 09:16 Dose: 40 mg Glucagon (Glucagon Inj 1 Mg Vial) 1 mg IM Q15MIN PRN PRN Reason: BG <70, and no IV access Heparin Sodium (Porcine) (Heparin Sod Inj 5000 Unit/Ml Vial) 5,000 unit SC Q8HR [facility] Stop: 03/03/25 13:59 Last Admin: 02/21/25 13:55 Dose: 5,000 unit Octreotide Acetate 1,000 mcg/ (Sodium Chloride) 102 mls @ 5.1 mls/hr IV .Q20H [facility]; Protocol Stop: 03/20/25 07:59 Last Admin: 02/20/25 21:23 Dose: 50 mcg/hr, 5.1 mls/hr Insulin Degludec (Insulin Degludec 5 Unit/0.05 Ml (Per 5 Units)) 15 unit SC QDAY [facility] Stop: 03/21/25 08:59 Last Admin: 02/21/25 09:18 Dose: 15 unit Insulin Human Lispro (Insulin Lispro (Admelog) 1 Unit/0.01 Ml Unit) 0 unit SC AC [facility]; Protocol Stop: 03/22/25 16:59 Last Admin: 02/21/25 17:37 Dose: 4 unit Labetalol HCl (Labetalol Inj 5 Mg/Ml Vial 4 Ml) 10 mg IVP Q15M PRN PRN Reason: hypertension Lactulose (Lactulose Syrup 20 Gm/30 Ml Udc) 20 gm PO BID [facility]; Protocol Stop: 03/22/25 20:59 Last Admin: 02/21/25 09:18 Dose: 20 gm Midodrine (Midodrine 5 Mg Tablet) 10 mg PO TID [facility] Stop: 03/23/25 13:59 Last Admin: 02/21/25 13:59 Dose: Not Given Ondansetron HCl (Ondansetron Inj 2 Mg/Ml Inj 2 Ml) 4 mg IVP Q6H PRN; Protocol PRN Reason: NAUSEA OR VOMITING Stop: 03/19/25 11:19 Pantoprazole Sodium (Pantoprazole Inj 40 Mg Vial) 40 mg IVP QDAY [facility] Stop: 03/20/25 08:59 Last Admin: 02/21/25 09:17 Dose: 40 mg Rifaximin (Rifaximin 550 Mg Tablet) 550 mg PO BID [facility] Stop: 02/27/25 20:59 Last Admin: 02/21/25 09:16 Dose: 550 mg Spironolactone (Spironolactone 25 Mg Tablet) 25 mg PO BID [facility] Stop: 03/22/25 09:44 Last Admin: 02/21/25 09:17 Dose: 25 mg Trimethoprim/Sulfamethoxazole (Trimethoprim/Sulfa 160/800 Ds Tablet) 1 tab PO QDAY [facility] Stop: 02/27/25 09:44 Last Admin: 02/21/25 09:17 Dose: 1 tab Discontinued Medications Atorvastatin Calcium (Atorvastatin Calcium 20 Mg Tablet) 40 mg PO HS [facility] Stop: 03/20/25 20:59 Dextrose (Dextrose 50%-Water Inj 50 Ml Syringe) 25 ml IV [id number] PRN PRN Reason: Blood Sugar - Low Potassium Chloride 20 meq/ (Dextrose/Lactated Ringer's) 1,010 mls @ 250 mls/hr IV .Q4H3M PRN PRN Reason: K LEVEL 3.3 TO 5.3 mM/L Stop: 03/19/25 06:28 Potassium Chloride 40 meq/ (Dextrose/Lactated Ringer's) 1,020 mls @ 250 mls/hr IV .Q4H5M PRN PRN Reason: K LEVEL < 3.3mM/L Stop: 03/19/25 06:28 Potassium Chloride (Kcl Ivpb) 10 meq in 100 mls @ 100 mls/hr IV .Q1H PRN PRN Reason: IF POTASSIUM LESS THAN 3.3 Stop: 03/19/25 06:28 Magnesium Sulfate (Magnesium Sulfate Ivpb) 2 gm in 50 mls @ 25 mls/hr IV .Q2H PRN PRN Reason: PER DKA PROTOCOL Stop: 03/19/25 06:28 Insulin Human Regular 100 unit (/ IV Miscellaneous Supplies) 100 mls @ 5.85 mls/hr IV .Q17H6M PRN; Protocol PRN Reason: PER PROTOCOL Stop: 03/19/25 06:28 Dextrose/Lactated Ringer's (D5-Lr) 1,000 mls @ 250 mls/hr IV .Q4H PRN PRN Reason: PER PROTOCOL Stop: 03/19/25 06:28 Lactated Ringer's (Lactated Ringers) 1,000 mls @ 250 mls/hr IV .Q4H PRN PRN Reason: PER PROTOCOL Stop: 02/18/25 06:28 Potassium Chloride 20 meq/ (Lactated Ringer's) 1,010 mls @ 250 mls/hr IV .Q4H3M PRN PRN Reason: K LEVEL 3.3 TO 5.3mM/L Stop: 03/19/25 06:28 Potassium Chloride 40 meq/ (Lactated Ringer's) 1,020 mls @ 250 mls/hr IV .Q4H5M PRN PRN Reason: K LEVEL < 3.3 mM/L Stop: 03/19/25 06:28 Potassium Chloride (Kcl Ivpb) 10 meq in 100 mls @ 50 mls/hr IV PRN PRN PRN Reason: K LEVEL 3.3 to 5.3 & BG > 200 Stop: 03/19/25 06:28 Potassium Phosphate (Pot Phos 15 Mmol In Ns 250 Ml) 15 mmol in 250 mls @ 62.5 mls/hr IV PRN PRN PRN Reason: Phosphate <= 1mg/dL Stop: 03/19/25 06:28 Sodium Phosphate 15 mmol/ (Sodium Chloride) 255 mls @ 62.5 mls/hr IV .Q4H5M PRN PRN Reason: Phosphate <= 1mg/dL and K> than 5.3 Stop: 03/19/25 06:28 Ceftriaxone Sodium 2 gm/ (Sodium Chloride) 50 mls @ 100 mls/hr IV X1 ONE Stop: 02/17/25 07:01 Last Infusion: 02/17/25 10:34 Dose: Infused Norepinephrine/Dextrose (Levophed In D5w 8mg/250ml) 8 mg in 250 mls @ 5.484 mls/hr IV .Q24H PRN; Protocol PRN Reason: PER PROTOCOL Stop: 03/19/25 10:08 Propofol (Diprivan Ivpb) 1,000 mg in 100 mls @ 1.755 mls/hr IV .Q24H PRN; Protocol PRN Reason: PER PROTOCOL Stop: 03/19/25 10:09 Last Titration: 02/18/25 08:20 Dose: 0 mcg/kg/min, 0 mls/hr Ceftriaxone Sodium/Dextrose (Rocephin/D5w 1gm Iv Premix) 1 gm in 50 mls @ 100 mls/hr IV QDAY [facility] Stop: 02/25/25 08:59 Last Admin: 02/21/25 09:17 Dose: 100 mls/hr Octreotide Acetate 1,000 mcg/ (Sodium Chloride) 102 mls @ 5.1 mls/hr IV .Q20H [facility]; Protocol Stop: 02/18/25 07:31 Last Admin: 02/17/25 12:25 Dose: 50 mcg/hr, 5.1 mls/hr Potassium Chloride (Kcl Ivpb) 10 meq in 100 mls @ 100 mls/hr IV Q1H [facility] Stop: 02/17/25 15:34 Last Admin: 02/17/25 16:33 Dose: 100 mls/hr Magnesium Sulfate (Magnesium Sulfate Ivpb) 2 gm in 50 mls @ 25 mls/hr IV X1 ONE Stop: 02/17/25 13:35 Last Admin: 02/17/25 11:48 Dose: 25 mls/hr Fentanyl Citrate (Sublimaze Inj 2,500 Mcg/250 Ml Bag) 2,500 mcg in 250 mls @ 2.5 mls/hr IV .Q24H PRN; Protocol PRN Reason: PER PROTOCOL Stop: 02/22/25 13:19 Last Titration: 02/18/25 08:20 Dose: 0 mcg/hr, 0 mls/hr Albumin Human (Albuminex 25% Ivpb) 25 gm in 100 mls @ 100 mls/hr IV Q6HR [facility] Stop: 02/21/25 11:59 Last Infusion: 02/20/25 13:34 Dose: Infused Potassium Chloride (Kcl Ivpb) 100 mls @ 100 mls/hr IV Q1H [facility] Stop: 02/19/25 18:17 Last Admin: 02/19/25 18:39 Dose: 100 mls/hr Potassium Phosphate (Pot Phos 15 Mmol In Ns 250 Ml) 15 mmol in 250 mls @ 62.5 mls/hr IV X1 ONE Stop: 02/20/25 01:47 Last Admin: 02/19/25 21:58 Dose: 62.5 mls/hr Levofloxacin/Dextrose (Levaquin Ivpb) 750 mg in 150 mls @ 100 mls/hr IV QOD [facility]; Protocol Stop: 02/27/25 08:59 Insulin Degludec (Insulin Degludec 5 Unit/0.05 Ml (Per 5 Units)) 10 unit SC QDAY [facility] Stop: 03/21/25 08:59 Insulin Degludec (Insulin Degludec 5 Unit/0.05 Ml (Per 5 Units)) 10 unit SC X1 ONE Stop: 02/19/25 09:01 Insulin Human Lispro (Insulin Lispro (Admelog) 1 Unit/0.01 Ml Unit) 0 unit SC Q6HR [facility]; Protocol Stop: 03/19/25 11:59 Last Admin: 02/20/25 12:33 Dose: 3 unit Insulin Human Regular (Insulin Hum Regular 1 Unit/0.01 Ml (Per Unit)) 5.9 unit 0.1 unit/kg (5.9 unit) IV X1 ONE Stop: 02/17/25 06:30 Last Admin: 02/17/25 07:27 Dose: 5.9 unit Ketamine HCl (Ketamine 50 Mg/Ml Vial 10 Ml) 50 mg IM X1 ONE Stop: 02/17/25 10:06 Last Admin: 02/17/25 10:10 Dose: Not Given Ketamine HCl (Ketamine 50 Mg/Ml Vial 10 Ml) 50 mg IVP X1 ONE Stop: 02/17/25 10:09 Last Admin: 02/17/25 10:23 Dose: 50 mg Lactulose (Lactulose Syrup 20 Gm/30 Ml Udc) 30 gm NG TID [facility]; Protocol Stop: 03/19/25 11:19 Last Admin: 02/17/25 11:36 Dose: 30 gm Lactulose (Lactulose Syrup 20 Gm/30 Ml Udc) 30 gm NG Q6HR [facility]; Protocol Stop: 03/19/25 13:29 Last Admin: 02/17/25 18:16 Dose: 30 gm Lactulose (Lactulose Syrup 20 Gm/30 Ml Udc) 45 gm NG Q6HR [facility]; Protocol Stop: 03/19/25 18:44 Last Admin: 02/19/25 05:34 Dose: 45 gm Lactulose (Lactulose Syrup 20 Gm/30 Ml Udc) 30 gm NG TID [facility]; Protocol Stop: 03/21/25 13:59 Last Admin: 02/20/25 05:49 Dose: 30 gm Lactulose (Lactulose Syrup 20 Gm/30 Ml Udc) 30 gm NG BID [facility]; Protocol Stop: 03/22/25 08:59 Lactulose (Lactulose Syrup 20 Gm/30 Ml Udc) 20 gm NG BID [facility]; Protocol Stop: 03/22/25 20:59 Midodrine (Midodrine 5 Mg Tablet) 5 mg PO TID [facility] Stop: 03/20/25 09:59 Last Admin: 02/19/25 01:40 Dose: Not Given Midodrine (Midodrine 5 Mg Tablet) 5 mg PO TID [facility] Stop: 03/20/25 09:59 Last Admin: 02/21/25 05:14 Dose: 5 mg Midodrine (Midodrine 5 Mg Tablet) 5 mg PO X1 ONE Stop: 02/21/25 08:41 Last Admin: 02/21/25 09:18 Dose: Not Given Potassium Chloride (Potassium Chloride 10% 20 Meq/15 Ml Udc) 40 meq NG X1 ONE Stop: 02/19/25 07:16 Last Admin: 02/19/25 08:46 Dose: 40 meq Potassium Phos/Sodium Phos (Naph,[facility] 1 Packet (1.5 Gm)) 1 packet PO X1 ONE Stop: 02/21/25 08:47 Last Admin: 02/21/25 09:35 Dose: 1 packet Rifaximin (Rifaximin 550 Mg Tablet) 550 mg NG BID [facility] Stop: 02/24/25 11:29 Last Admin: 02/20/25 09:57 Dose: 550 mg Rocuronium [place] (Rocuronium Inj 10 Mg/Ml Vial 10 Ml) 50 mg IVP X1 ONE Stop: 02/17/25 10:06 Last Admin: 02/17/25 10:23 Dose: 50 mg Sodium Bicarbonate (Sodium Bicarb Inj 8.4% Syr 50 Ml Syringe) 50 ml IV Q4HR PRN PRN Reason: For ph <= to 7.0 Stop: 03/19/25 06:28 Sodium Chloride (Sodium Chloride Rt 10% 15 Ml Nebu) 5 ml INH X1 ONE Stop: 02/17/25 10:23 Trimethoprim/Sulfamethoxazole (Trimethoprim/Sulfa 160/800 Ds Tablet) 1 tab PO BID [facility] Stop: 02/27/25 08:59 Last Admin: 02/20/25 10:25 Dose: Not Given Assessment & Plan Plan Patient is a 64 year old female with PMH of IDDM 2, decompensated cirrhosis of unknown etiology, HFpEF (EF 65%), moderate aortic stenosis, esophageal varices who presents to the ED on 02/17 for altered mental status. Admitted to ICU for acute encephalopathy likely secondary to hepatic encephalopathy s/p intubation due to inability to protect airway. Downgraded from ICU after stabilization of her condition. #Aortic Stenosis, Moderate to Severe #Hx of CHF HFpEF, EF 65% #Vtach (resolved) #PVCs -Past ECHO (08/15/2024): Normal LVsize and wall thickness. Estimated EF 65%. The RV is normal in size and systolic function. Moderately increased LA volume 39 mL/m?. [id number]-lnnlssdo MR. Moderate thickening of the AV. Mild to moderate , mean gradient 18 mmHg, JORGE 1 cm?. There is mild TR and PI. Inferior vena cava not well visualized. -Past ECHO (10/04/2024): Normal LV size and fuction. Grade 1 DD. Estimated EF is 60-65%. Moderate LVH. Normal RV size and fuction. Dilated IVC RVSP including RAP 38mmHg. Moderately Dilated Left Atrium. Mildly Dilated RA. Moderate AV stenosis. AV Vmax 3.8m/s Mean PG 35mmH. JORGE 0.8sq cm. Moderate TR. Mild AI & MR. Trace PI. Moderate MAC. GLS-23%. -Nuclear Stress test (NST) (11/03/2024): Normal Myocardial perfusion study without evidence of inducible ischemia. EF 62%. Normal TID and wall motion -Holter Monitoring (11/08/2024): No evidence of any atrial fibrillation or any arrhythmias. SVE and VE were less than 1% -Cardiac Catheterization (LHC + RHC) (11/16/2024): Indication: due to moderate to severe aortic stenosis found on ECHO. LHC showed mild CAD with 30-40% stenosis of mid LAD and 20-30% stenosis of proximal LCx. Rest of coronaries without any angiographically significant obstruction and few luminal irregularities. LVEF was 60-65% LVEDP severely elevated at 21 mm hg. There was significant transvalvular aortic gradient. Normal right heart pressures with mean RA of 12 mm hg, mean PA of 24 mmhg and mean PCWP at 18 mm hg. Plan: -Continue to monitor CBC, CMP -Mg>2, K>4 -Replete electrolytes as needed. #Hypertension/Hypotension -On Midodrine 10mg po TID -Labetalol IV prn #Acute encephalopathy, resolved #Cirrhosis -Continue Lactulose and Rifaximin -Spironolactone 25mg po bid, -Lasix 40mg po qd #Variceal bleed concern, no active bleed #Aspiration pneumonitis #Hypernatremia / hyperchloremia #IGNACIO on CKD, improving #Hypotension / hypertension ? resolved #IDDM2 #Chronic leukopenia & thrombocytopenia (hypersplenism) #Iron deficiency anemia (chronic) #Hyperbilirubinemia (chronic) -Management per Primary Hospitalist team Thank you for allowing us to participate in the care of your patient. Assessment and plan discussed with my attending physician Dr. Eduardo Morales (PGY-1) - Internal medicine resident Attending Provider Attestation/Addendum I have personally seen and examined the patient separately on the above date of service and discussed the plan of care with the resident. I reviewed the resident Dr. Gloria Morales consultation progress note and agree with the resident findings and plan in the note above and have also edited the documentation to reflect my findings and plan. Sahil Clark M.D. Interventional Cardiology
[2025-02-21] MEDS: OCTREOTIDE ACET INJ 1,000 MCG in SODIUM CHLORIDE 0.9% 100 ML 5.1 MCG IV (21:14)
[2025-02-21] MEDS: MIDODRINE 5 MG TABLET 10 MG PO (21:16)
[2025-02-22] VITALS (9 sets, daily range): BP systolic 115–135; BP diastolic 54–76; PULSE 49–87; RESP 15–95; TEMP 36–37.1; O2SAT 96–99; BMI 24.2
[2025-02-22] MEDS: HEPARIN SOD INJ 5000 UNIT/ML VIAL SC (05:11)
[2025-02-22] MEDS: MIDODRINE 5 MG TABLET 10 MG PO ×2 (05:11→14:07)
[2025-02-22 05:43] LABS: Basophils # (Auto) 0.0 Thou/mm3 (0.0-0.2); Basophils % (Auto) 1 % (0-2.5); Eosinophils # (Auto) 0.2 Thou/mm3 (0.0-0.5); Eosinophils % (Auto) 4 % (0-10); Hematocrit 25.8 % (36.0-46.0); Hemoglobin 8.9 g/dL (12.0-16.0); Immature Granulocytes Auto 0.01 Thou/mm3 (0.00-0.00); Lymphocytes # (Auto) 1.1 Thou/mm3 (1.0-4.8); Lymphocytes % (Auto) 29 % (10-50); Mean Corpuscular HGB Conc 34.5 g/dl (31.0-37.0); Mean Corpuscular Hemoglobin 34.5 pg (25.0-35.0); Mean Corpuscular Volume 100 fL (80-100); Monocytes # (Auto) 0.5 Thou/mm3 (0.0-0.8); Monocytes % (Auto) 13 % (0-12); Neutrophils # (Auto) 1.9 Thou/mm3 (1.8-7.7); Neutrophils % (Auto) 53 % (37-80); Nucleated Red Blood Cell # 0.00 Thou/mm3 (0.00-0.00); Nucleated Red Blood Cell % 0 /100 WBC (0); RDW Standard Deviation 55.7 fL (36.4-46.3); Red Blood Count 2.58 Miln/mm3 (4.00-5.20)
[2025-02-22 07:26] LABS: Alanine Aminotransferase 13 U/L (10-49); Albumin, Serum 4.1 gm/dL (3.4-4.8); Alkaline Phosphatase 62 U/L (46-116); Anion Gap 10 (7-16); Aspartate Amino Transferase 35 U/L (0-34); BUN/Creatinine Ratio 21 Ratio (12-20); Bilirubin,Total 2.7 mg/dL (0.3-1.2); Blood Urea Nitrogen 45 mg/dL (9-23); Calcium 9.2 mg/dL (8.3-10.6); Calcium (Corrected) 9.2 mg/dL (8.5-10.1); Carbon Dioxide 20.8 mMol/L (20.0-31.0); Chloride 110 mMol/L (98-107); Creatinine (Component) 2.1 mg/dL (0.6-1.3); Estimated Creatinine Clearance 21.8 mL/min (>60); Glucose 176 mg/dL (74-106); Magnesium 1.7 mg/dL (1.6-2.6); Osmolality,Calculated 296 (275-295); Phosphorous 2.7 mg/dL (2.4-5.1); Potassium 4.1 mMol/L (3.4-5.1); Sodium 141 mMol/L (136-145); eGFR 26 See Note
[2025-02-22 07:56] LABS: Platelet Count 36 Thou/mm3 (140-440)
[2025-02-22] MEDS: TRIMETHOPRIM/SULFA 160/800 DS TABLET 1 TAB PO (08:20)
[2025-02-22] MEDS: LACTULOSE SYRUP 20 GM/30 ML UDC PO ×2 (08:21→14:06)
[2025-02-22] MEDS: SPIRONOLACTONE 25 MG TABLET PO (08:22)
[2025-02-22] MEDS: INSULIN DEGLUDEC 5 UNIT/0.05 ML (PER 5 UNITS) 15 UNIT SC (08:30)
[2025-02-22 09:27] LABS: Slide Review Platelets confirmed; White Blood Count 7.0 Thou/mm3 (3.6-11.0)
--- NOTE | 2025-02-22 09:46 | PD.RESPRO ---
Documentation for date of: 02/22/25 Subjective Subjective Interval history: History of Present Illness The patient is a 64-year-old female with PMH of IDDM 2, decompensated cirrhosis of unknown etiology, heart failure with preserved ejection fraction (HFpEF) with an ejection fraction of 65%, moderate aortic stenosis, and a history of esophageal varices presented to the emergency department on 02/17 with AMS. Due to the patient being intubated upon examination, her history was obtained from her . According to her , the patient was responsive at approximately 1:45 AM when the glucose monitor alarm activated. However, when he attempted to wake her at 5:45 AM, she was unresponsive to verbal stimuli but did withdraw from painful stimuli. An ambulance was called, and the patient?s [place] Coma Scale (GCS) score was 7 upon EMS arrival. There was no reported history of seizures or strokes. The patient was admitted to the ICU for acute encephalopathy secondary to hepatic encephalopathy, and was intubated due to her inability to protect her airway. On 02/20, patient stabilized and mental status close to baseline, and thus was downgraded from ICU. Patient has chronic mild to moderate aortic stenosis and follows Dr. Clark outpatient. Dr. Clark was consulted for further evaluation and care. ED course: Upon ED arrival, GCS decreased to 3. Per nurse, patient was noted to have left sided weakness and partial left facial droop (however notes this is normal for her when she is asleep). Patient was intubated. BP 94/54, RR 23. CBC showed WBC 2.8, hemoglobin 9.0, platelet 47,000, appear to be baseline for her as she has history of hypersplenism. Labs were remarkable for glucose 435, BHB 0.2, lactic acid 2.5-> 1.9, ammonia 251, anion gap and bicarb within normal limits. Given CFX x1 and insulin regular 5.[address] head and CTA were negative for acute changes. After sedation and paralytic wore off s/p intubation, patient became agitated and was unable to follow commands, was started on propofol and fentanyl drip for sedation. Was noted to be moving all 4 extremities. Past Medical History: as above Family History: Liver cancer in father and sister. Mother had CAD status post stents in her 70s. Surgical History: C section, bilateral carpal tunnel, right shoulder sx, right knee arthroplasty Social History: Denies history of smoking, denies current alcohol use, denies recreational drug use Medications: Spironolactone 50 mg daily, carvedilol 3.125 mg twice daily, simvastatin 10 mg 2 tablets nightly, Bumex 1 mg 2 tablets daily, ferrous sulfate 325 TID, insulin lantus 35 units, lispro 2 units with meals (Source: ) Allergies: No known drug allergies 02/21/2025: Labs reviewed and patient examined at the bedside. Patient currently on lactulose, Rifaximin, Spironolactone and lasix for cirrhosis and on Midodrine 1mg po tid for hypotension managment. Current BP is 146/56. Potassium 4.5, and Mag 2.1. Patient is alert but not fully back to baseline. Continue current diet and management. 02/22/2025: Labs reviewed and patient examined at the bedside. Continue managing patient's cirrhosis with Lactulose, Rifaximin, Spironolactone and Lasix. hgb level 8.9 , Platelet level 36, Potassium 4.1, Ma.7. Current BP is 126/67. Will continue to monitor. Exam Vital Signs Temp Pulse Resp BP Pulse Ox O2 Del Method FiO2 96.8 F 68 19 126/67 99 Room Air 25 02/22/25 08:00 02/22/25 08:22 02/22/25 08:00 02/22/25 08:22 02/22/25 08:00 02/22/25 08:00 02/20/25 08:31 Narrative Exam General: No acute distress, well nourished, AAO x2, Frail, Elderly Eye: Normal conjunctiva, no scleral icterus HENT: Normocephalic, atraumatic, hearing intact to conversation at normal volume, moist oral mucosa Neck: Supple, non-tender, no JVD, no lymphadenopathy Lungs: Non-labored respirations, symmetric chest rise, Clear to auscultate bilaterally, No wheezing, rhonchi, crackles Heart: Peripheral pulses intact bilaterally, Regular Rate and Rhythm. 4/6 systolic murmur Abdomen: Soft, non-tender, non-distended, no palpable masses Musculoskeletal: Normal range of motion and strength, No cyanosis or edema, No visible joint swelling Skin: Skin is warm, dry, no rashes or lesions. Psychiatric: Cooperative, appropriate mood and affect, Awake and alert, not agitated Neuro: Cranial nerves II-XII grossly intact. Sensations intact to light touch. Objective Labs 02/22/25 05:11 02/22/25 05:11 Labs: Laboratory Results - last 24 hr 02/22/25 05:11 WBC 7.0 D RBC 2.58 L Hgb 8.9 L Hct 25.8 L MCV 100 MCH 34.5 MCHC 34.5 RDW Std Deviation 55.7 H Plt Count 36 L Neut % (Auto) 53 Lymph % (Auto) 29 Gregory % (Auto) 13 H Eos % (Auto) 4 Baso % (Auto) 1 Neut # (Auto) 1.9 Lymph # (Auto) 1.1 Gregory # (Auto) 0.5 Eos # (Auto) 0.2 Baso # (Auto) 0.0 Immature Gran # (Auto) 0.01 H Absolute Nucleated RBC 0.00 Immature Gran % 0 Nucleated RBC % 0 Sodium 141 Potassium 4.1 Chloride 110 H Carbon Dioxide 20.8 Anion Gap 10 BUN 45 H Creatinine 2.1 H Estim Creat Clear Calc 21.8 L eGFR 26 L BUN/Creatinine Ratio 21 H Glucose 176 H Calculated Osmolality 296 H Calcium 9.2 Corrected Calcium 9.2 Phosphorus 2.7 Magnesium 1.7 Total Bilirubin 2.7 H D AST 35 H ALT 13 Alkaline Phosphatase 62 D Albumin 4.1 D Misc Test Result Platelets confirmed ABG Interpretation ABG results: 02/17/25 02/17/25 02/18/25 06:45 13:12 04:57 ABG pH 7.52 H 7.49 H 7.53 H ABG pCO2 36 38 31 L ABG pO2 88 171 H D 157 H ABG HCO3 30 H 29 H 26 ABG O2 Saturation 99 H 101 H 99 H ABG Base Excess 6 H 5 H 3 02/19/25 02/20/25 04:49 04:29 ABG pH 7.46 H 7.41 ABG pCO2 35 36 ABG pO2 136 H D 90 D ABG HCO3 25 23 ABG O2 Saturation 100 H 98 ABG Base Excess 2 -2 Quality Measures Quality Measures stroke Suspected type of Stroke: Non Acute Last known well (date): 02/16/25 Last known well (time): 21:00 Tenecteplase given: Reason(s) Tenecteplase not given: Outside the time window not given Rehab services: PT evaluation ordered VTE Prophylaxis: pharmaceutical Antithrombotic by day 2:: contraindicated (describe) (Cirrhosis, Low platelet) Statin ordered: <75 y/o high intensity dose Anticoagulation ordered for A-fib or flutter (current or hx): contraindicated Advance care planning discussed with:: patient Assessment & Plan Assessment Current Active Medications: Generic Name Dose Route Start Last Admin Trade Name Freq PRN Reason Stop Dose Admin Acetaminophen 650 mg 02/17/25 11:20 Acetaminophen 325 Mg Tablet PO 03/19/25 11:19 Q6H PRN Fever >101.5 Dextrose 25 ml 02/17/25 11:24 Dextrose 50%-Water Inj 50 Ml Syringe IV 03/19/25 11:23 Q15MIN PRN BG 50-70 responsive npo pt Dextrose 50 ml 02/17/25 11:24 Dextrose 50%-Water Inj 50 Ml Syringe IV 03/19/25 11:23 Q15MIN PRN BG <50 OR BG <70 & pt unresponsive Furosemide 40 mg 02/20/25 09:45 02/22/25 08:21 Furosemide 40 Mg Tablet PO 03/22/25 09:44 40 mg QDAY WAYNE Administration Glucagon 1 mg 02/17/25 11:24 Glucagon Inj 1 Mg Vial IM Q15MIN PRN BG <70, and no IV access Heparin Sodium (Porcine) 5,000 unit 02/17/25 14:00 02/22/25 05:11 Heparin Sod Inj 5000 Unit/Ml Vial SC 03/03/25 13:59 5,000 unit Q8HR WAYNE Administration Insulin Degludec 15 unit 02/19/25 09:00 02/22/25 08:30 Insulin Degludec 5 Unit/0.05 Ml (Per 5 Units) SC 03/21/25 08:59 15 unit QDAY WAYNE Administration Insulin Human Lispro 0 unit 02/20/25 17:00 02/22/25 07:36 Insulin Lispro (Admelog) 1 Unit/0.01 Ml Unit SC 03/22/25 16:59 Not Given AC [facility] Protocol Labetalol HCl 10 mg 02/17/25 06:18 Labetalol Inj 5 Mg/Ml Vial 4 Ml IVP Q15M PRN hypertension Lactulose 20 gm 02/20/25 21:00 02/22/25 08:21 Lactulose Syrup 20 Gm/30 Ml Udc PO 03/22/25 20:59 20 gm BID WAYNE Administration Protocol Midodrine 10 mg 02/21/25 14:00 02/22/25 05:11 Midodrine 5 Mg Tablet PO 03/23/25 13:59 10 mg TID WAYNE Administration Ondansetron HCl 4 mg 02/17/25 11:20 Ondansetron Inj 2 Mg/Ml Inj 2 Ml IVP 03/19/25 11:19 Q6H PRN NAUSEA OR VOMITING Protocol Pantoprazole Sodium 40 mg 02/18/25 09:00 02/22/25 08:21 Pantoprazole Inj 40 Mg Vial IVP 03/20/25 08:59 40 mg QDAY WAYNE Administration Rifaximin 550 mg 02/20/25 21:00 02/22/25 08:21 Rifaximin 550 Mg Tablet PO 02/27/25 20:59 550 mg BID WAYNE Administration Spironolactone 25 mg 02/20/25 09:45 02/22/25 08:22 Spironolactone 25 Mg Tablet PO 03/22/25 09:44 25 mg BID WAYNE Administration Trimethoprim/Sulfamethoxazole 1 tab 02/20/25 09:45 02/22/25 08:20 Trimethoprim/Sulfa 160/800 Ds Tablet PO 02/27/25 09:44 1 tab QDAY WAYNE Administration Plan Patient is a 64 year old female with PMH of IDDM 2, decompensated cirrhosis of unknown etiology, HFpEF (EF 65%), moderate aortic stenosis, esophageal varices who presents to the ED on 02/17 for altered mental status. Admitted to ICU for acute encephalopathy likely secondary to hepatic encephalopathy s/p intubation due to inability to protect airway. Downgraded from ICU after stabilization of her condition. #Aortic Stenosis, Moderate to Severe #Hx of CHF HFpEF, EF 65% #Vtach (resolved) #PVCs -Past ECHO (08/15/2024): Normal LVsize and wall thickness. Estimated EF 65%. The RV is normal in size and systolic function. Moderately increased LA volume 39 mL/m?. [id number] MR. Moderate thickening of the AV. Mild to moderate , mean gradient 18 mmHg, JORGE 1 cm?. There is mild TR and PI. Inferior vena cava not well visualized. -Past ECHO (10/04/2024): Normal LV size and fuction. Grade 1 DD. Estimated EF is 60-65%. Moderate LVH. Normal RV size and fuction. Dilated IVC RVSP including RAP 38mmHg. Moderately Dilated Left Atrium. Mildly Dilated RA. Moderate AV stenosis. AV Vmax 3.8m/s Mean PG 35mmH. JORGE 0.8sq cm. Moderate TR. Mild AI & MR. Trace PI. Moderate MAC. GLS-23%. -Nuclear Stress test (NST) (11/03/2024): Normal Myocardial perfusion study without evidence of inducible ischemia. EF 62%. Normal TID and wall motion -Holter Monitoring (11/08/2024): No evidence of any atrial fibrillation or any arrhythmias. SVE and VE were less than 1% -Cardiac Catheterization (LHC + RHC) (11/16/2024): Indication: due to moderate to severe aortic stenosis found on ECHO. LHC showed mild CAD with 30-40% stenosis of mid LAD and 20-30% stenosis of proximal LCx. Rest of coronaries without any angiographically significant obstruction and few luminal irregularities. LVEF was 60-65% LVEDP severely elevated at 21 mm hg. There was significant transvalvular aortic gradient. Normal right heart pressures with mean RA of 12 mm hg, mean PA of 24 mmhg and mean PCWP at 18 mm hg. Plan: -Continue to monitor CBC, CMP -Mg>2, K>4 -Replete electrolytes as needed. #Hypertension/Hypotension -On Midodrine 10mg po TID -Labetalol IV prn #Acute encephalopathy, resolved #Cirrhosis -Continue Lactulose and Rifaximin -Spironolactone 25mg po bid, -Lasix 40mg po qd #Variceal bleed concern, no active bleed #Aspiration pneumonitis #Hypernatremia / hyperchloremia #IGNACIO on CKD, improving #Hypotension / hypertension ? resolved #IDDM2 #Chronic leukopenia & thrombocytopenia (hypersplenism) #Iron deficiency anemia (chronic) #Hyperbilirubinemia (chronic) -Management per Primary Hospitalist team Thank you for allowing us to participate in the care of your patient. Assessment and plan discussed with my attending physician Dr. Eduardo Morales (PGY-1) - Internal medicine resident Attending Provider Attestation/Addendum I have personally seen and examined the patient separately on the above date of service and discussed the plan of care with the resident. I reviewed the resident Dr. Gloria Morales consultation progress note and agree with the resident findings and plan in the note above and have also edited the documentation to reflect my findings and plan. Sahil Clark M.D. Interventional Cardiology
[2025-02-22] MEDS: INSULIN LISPRO (AdmeLOG) 1 UNIT/0.01 ML UNIT SC (12:00)
--- NOTE | 2025-02-22 12:07 | ESDS_ITS ---
<Statement entered by Biju Ross MD - 03/07/25 09:16> I reviewed above note and agree with findings and plans. I have also personally examined the patient with medicine team and went over assessment and plan with medical team including internal carver and resident physician. Planned Discharge Date 02/22/25 DS: Providers Provider Date of admission: 02/17/25 11:21 Primary care physician: Kaylie Montes MD Admitting Provider: Heather Story MD Attending Provider on Admission: Biju Ross MD Consults: 02/17/25 06:18 Consult to Neurology / Tele-Neurology Routine Comment: Consulting Provider: [facility] 02/17/25 06:29 Referral Registered Dietitian Routine Comment: 02/18/25 17:40 Consult to Gastroenterology Stat Comment: Consulting Provider: Jarad Pérez 02/21/25 16:42 Consult to Cardiology Stat Comment: Consulting Provider: Sahil Clark 02/22/25 10:24 PT [Referral Physical Therapy] Routine Comment: Physician Instructions: Referral Physical Therapy Urgent Comment: Physician Instructions: Instructions: discharge today Attending Provider on DC: Biju Ross MD Discharging Provider: Oniel Batres MD DS: Diagnosis Problem List Completed Was Problem List Reviewed/Reconciled?: Yes Hospital Course Hospital Course Hospital course: 64-year-old female with a past medical history of IDDM2, decompensated cirrhosis, and hypersplenism, admitted on 02/17/2025 for acute hepatic encephalopathy likely secondary to decompensated cirrhosis. She was intubated upon arrival for airway protection due to altered mental status. Initial treatment in the ICU included lactulose, rifaximin, and ceftriaxone for SBP prophylaxis, along with octreotide for variceal bleed prevention. She was also started on Bactrim DS for aspiration pneumonitis after sputum cultures grew Enterococcus. During her ICU stay, the patient experienced acute kidney injury (IGNACIO), likely pre-renal, with creatinine rising to 2.2. Her platelet count remained low (30), which is chronic due to hypersplenism, but no active bleeding was noted. Her sodium levels peaked at 148, then improved to 141 by discharge. On 02/20/2025, the patient was extubated, became alert and oriented, and was transferred from the ICU to the floor after stabilization. NG tube and Pugh catheter were removed, and she began tolerating oral hydration and diet. After completing a 5-day course of ceftriaxone and octreotide, she was stable and ready for discharge, with improvement in renal function (Cr 2.1), sodium levels, and mental status. Diagnosis during admission: #Acute encephalopathy, resolved #Variceal bleed concern, no active bleed #Aspiration pneumonitis #Hypernatremia / hyperchloremia #IGNACIO on CKD, improving #Hypotension / hypertension ? resolved #Electrolyte-related arrhythmias (VTach self-resolved, PVCs) #IDDM2 #Aortic stenosis ? mild to moderate (chronic) #Chronic leukopenia & thrombocytopenia (hypersplenism) #Iron deficiency anemia (chronic) #Hyperbilirubinemia (chronic) Discharge instructions: -Follow up with primary care physician within 1 week of discharge -Ensure PCP to refill medications, especially the lactulose, should be on it unless noted otherwise. -Please take augmentin one pill in the morning and one at night for 2 more days -Please take midodrine 10mg TID for BP support -Continue lactulose 20mg 3 times daily, adjust as needed -Decresed long acting insulin to 15 units daily, can be adjusted outpatient by primary care doctor. -Goal is 3 Bowel Movements, if patient is having more than 4 bowel movements then titrate down the lactulose to twice daily. -Your Coreg and spironolactone has been put on hold until seen by your primary care physician to monitor your BP -Hold iron supplement until you complete the antibiotic course, resume on 02/25/2025. -Should any symptoms recur or worsen patient is instructed to return to the ED. ----- Plan discussed with attending physician Dr. Cody Batres MD PGY-1 Internal Medicine Time Spent with Patient Time attestation: Total time spent providing and/or coordinating discharge services: Time spent: Greater than 30 minutes Exam Vital Signs Temp Pulse Resp BP Pulse Ox O2 Del Method FiO2 96.8 F 68 19 126/67 99 Room Air 25 02/22/25 08:00 02/22/25 08:22 02/22/25 08:00 02/22/25 08:22 02/22/25 08:00 02/22/25 08:00 02/20/25 08:31 Narrative Exam General: A&O ?3, NAD, no respiratory distress HEENT: Icteric sclera, moist mucosa, superficial mouth laceration healing, no active bleed Neck: Supple, no masses, no meningeal signs Lungs: Clear bilaterally, non-labored Heart: RRR, systolic murmur from known , no new arrhythmia on my interpretation today Abdomen: Soft, non-tender, non-distended, no guarding or rigidity MSK: Peripheral pulses intact, no edema Neuro: Moving all extremities, no new focal deficits, sensory intact Psych: Cooperative, appropriate mood/affect Discharge Plan Plan Patient Disposition: Home w/HOME HEALTH Care Plan Goals: -Follow up with primary care physician within 1 week of discharge -Ensure PCP to refill medications, especially the lactulose, should be on it unless noted otherwise. -Please take augmentin one pill in the morning and one at night for 2 more days -Please take midodrine 10mg TID for BP support -Continue lactulose 20mg 3 times daily, adjust as needed -Decresed long acting insulin to 15 units daily, can be adjusted outpatient by primary care doctor. -Goal is 3 Bowel Movements, if patient is having more than 4 bowel movements then titrate down the lactulose to twice daily. -Your Coreg and spironolactone has been put on hold until seen by your primary care physician to monitor your BP -Hold iron supplement until you complete the antibiotic course, resume on 02/25/2025. -Should any symptoms recur or worsen patient is instructed to return to the ED. Prescriptions/Referrals Prescriptions/Med Rec: New amoxicillin-pot clavulanate 875-125 mg tablet 1 tab PO BID Qty: 4 0RF midodrine 10 mg tablet 10 mg PO TID Qty: 90 0RF Rx Instructions: do not give last dose of day after 6PM or within 4 hrs of bedtime pantoprazole [Protonix] 40 mg tablet,delayed release (DR/EC) 40 mg PO QDAY Qty: 30 0RF lactulose 10 gram/15 mL Solution 20 g PO TID 30 Days Qty: 2700 0RF Continued simvastatin [Zocor] 10 MG tablet 10 mg PO HS Qty: 0 albuterol sulfate 90 mcg/actuation HFA aerosol inhaler 2 puff INHALATION .COMPLEX Rx Instructions: 2 puffs inhaled daily prn; (DME) [employer] Nely 3 Plus Sensor Device See Rx Instructions .Route Qty: 2 3RF Rx Instructions: As directed (DME) FreeStyle Nely 3 Benedict Misc See Rx Instructions .Route Qty: 1 0RF Rx Instructions: As directed hydrocodone-acetaminophen 5-325 mg tablet 0.5 tab PO TID PRN (Reason: pain) Patient Comments: FOR SEVERE KNEE PAIN bumetanide 1 mg tablet 1 mg PO QDAY folic acid 1 mg tablet 1 mg PO QDAY Changed insulin glargine-yfgn [Semglee(insulin glarg-yfgn)Pen] 100 unit/mL (3 mL) insulin pen 15 unit subcut QDAY Qty: 15 0RF Held spironolactone 50 mg tablet 50 mg PO DAILY Hold Instructions: Resume on 03/04/25. until seen by Primary care physician to monitor blood pressure Patient Comments: TAKE 1 TABLET BY MOUTH ONCE DAILY IN THE MORNING carvedilol 3.125 mg tablet 3.125 mg PO BID Hold Instructions: Resume on 03/05/25. until seen by PCP Rx Instructions: must administer with a meal/food ferrous sulfate [FeroSul] 325 mg (65 mg iron) tablet 325 mg PO BID 30 Days Qty: 60 0RF Hold Instructions: Resume on 02/25/25. Hold until you complete antibiotic course Referrals: Kaylie Montes MD [Primary Care Provider, Internal Medicine] Patient/Caregiver Discharge Instructions Education Materials: Hepatic Encephalopathy Print Language: Cambodian Stand Alone Forms: Daisha Award Info., Patient Portal Info Letter Discharge Order Discharge Orders: Discharge (Routine); Ordered 02/22/25 Ordered By: Wolfgang Michelle Quality Discharge Quality Measures VTE prophylaxis
[2025-02-22 13:14] LABS: Albumin/Globulin Ratio 1.4 (1.2-2.2); Globulin 2.9 gm/dL (2.3-3.5); Total Protein 7.0 gm/dL (5.7-8.2)
--- NOTE | 2025-02-22 14:57 | PC.PT ---
Patient is safe to ambulate to the bathroom and in the halls with 1 staff and a FWW. RN made aware.
--- NOTE | 2025-02-22 15:22 | PC.SS ---
SS submitted DME referral for [facility], pending responses. SS will reach out to pt via phone once assigned. No barrier for pt to DC home.
--- NOTE | 2025-02-24 09:49 | PC.CC ---
[facility] accepted and booked, soc 02/25
== END 2025-02-22 15:30 | disposition home health service (06) | DRG 441 ==
LOC: SERX 06:24 → SERHOLD 11:48 → S2SX 14:42 → S2NX 02-22 10:02 → S2SX 02-23 08:34
PROVIDERS: Nurse Practitioner Primary Care; Student in an Organized Health Care Education/Training Program; Admitting Provider Internal Medicine; Emergency Provider Family Medicine; PCP Internal Medicine; Visit Provider Internal Medicine
DX: K76.82 Hepatic encephalopathy (principal); J69.0 Pneumonitis due to inhalation of food and vomit; J96.01 Acute respiratory failure with hypoxia; E72.20 Disorder of urea cycle metabolism, unspecified; I13.0 Hypertensive heart and chronic kidney disease with heart failure and stage 1 through stage 4 chronic kidney disease, or unspecified chronic kidney disease; I50.32 Chronic diastolic (congestive) heart failure; N17.9 Acute kidney failure, unspecified; D68.9 Coagulation defect, unspecified; E87.0 Hyperosmolality and hypernatremia; I47.20 Ventricular tachycardia, unspecified; E78.5 Hyperlipidemia, unspecified; N18.9 Chronic kidney disease, unspecified; E11.22 Type 2 diabetes mellitus with diabetic chronic kidney disease; I35.0 Nonrheumatic aortic (valve) stenosis; D73.1 Hypersplenism; K74.69 Other cirrhosis of liver; D69.6 Thrombocytopenia, unspecified; D72.819 Decreased white blood cell count, unspecified; K72.10 Chronic hepatic failure without coma; K75.81 Nonalcoholic steatohepatitis (NASH); I49.3 Ventricular premature depolarization; D50.9 Iron deficiency anemia, unspecified; E87.8 Other disorders of electrolyte and fluid balance, not elsewhere classified; E11.65 Type 2 diabetes mellitus with hyperglycemia; I25.10 Atherosclerotic heart disease of native coronary artery without angina pectoris; B95.2 Enterococcus as the cause of diseases classified elsewhere; Z79.4 Long term (current) use of insulin
CPT/HCPCS: 36415; 36600; 51702; 70450; 70496; 70498; 71045; 76705; 80053; 80061; 80069; 80307; 81001; 82010; 82140; 82803; 83036; 83605; 83735; 84100; 84443; 84484; 84703; 85025; 85610; 85730; 87040; 87077; 87081; 87186; 87205; 87811; 93005; 94002; 94003; 96365; 96366; 96375; 97162; 99291; 99292; A4314; A4649; J0696; J1644; J1815; J2354; J2470; J2704; J3010; J3475; J3480; J7050; J7999; P9047; Q9967; A9270

== ENCOUNTER → 2025-03-01 | Outpatient (CLI) | payer OTHER, SELFPAY ==
--- NOTE | 2025-03-01 11:30 | XR_ITS ---
Examination: Breast ultrasound, unilateral, right Date and time of exam: March 01, 2025, 1107 hours INDICATIONS: Right breast sonogram 11/10/2024 retroareolar nodule 3 x 4 mm 25 mm right axillary lymph node, strong family history of breast cancer, sister Technique: Real-time powell scale ultrasonographic imaging performed right breast including all 4 quadrants as well as nipple retroareolar and axillary region. Findings: Retroareolar dilated duct with calcifications 4 x 3 mm 29 mm right axillary lymph node IMPRESSION: BI-RADS Category 3: Probably benign findings 1 additional 6-month right breast sonogram follow-up is needed to document stability of retroareolar dilated duct with calcifications within the duct
== END | disposition home or self-care (01) ==
LOC: CDIM 10:34
PROVIDERS: PCP Internal Medicine; Referring Provider Nurse Practitioner Family; Visit Provider Nurse Practitioner Family
DX: R92.1 Mammographic calcification found on diagnostic imaging of breast (principal); Z80.3 Family history of malignant neoplasm of breast
CPT/HCPCS: 76641

== ENCOUNTER → 2025-03-04 | Outpatient (CLI) | payer OTHER, SELFPAY ==
[2025-03-04 12:19] LABS: Basophils # (Auto) 0.0 Thou/mm3 (0.0-0.2); Basophils % (Auto) 1 % (0-2.5); Eosinophils # (Auto) 0.1 Thou/mm3 (0.0-0.5); Eosinophils % (Auto) 4 % (0-10); Hematocrit 26.1 % (36.0-46.0); Hemoglobin 9.3 g/dL (12.0-16.0); Immature Granulocytes Auto 0.00 Thou/mm3 (0.00-0.00); Lymphocytes # (Auto) 1.0 Thou/mm3 (1.0-4.8); Lymphocytes % (Auto) 31 % (10-50); Mean Corpuscular HGB Conc 35.6 g/dl (31.0-37.0); Mean Corpuscular Hemoglobin 35.8 pg (25.0-35.0); Mean Corpuscular Volume 100 fL (80-100); Monocytes # (Auto) 0.3 Thou/mm3 (0.0-0.8); Monocytes % (Auto) 8 % (0-12); Neutrophils # (Auto) 1.9 Thou/mm3 (1.8-7.7); Neutrophils % (Auto) 56 % (37-80); Nucleated Red Blood Cell # 0.00 Thou/mm3 (0.00-0.00); Nucleated Red Blood Cell % 0 /100 WBC (0); RDW Standard Deviation 60.6 fL (36.4-46.3); Red Blood Count 2.60 Miln/mm3 (4.00-5.20); White Blood Count 3.3 Thou/mm3 (3.6-11.0)
[2025-03-04 12:21] LABS: Platelet Count 43 Thou/mm3 (140-440)
[2025-03-04 12:54] LABS: Alanine Aminotransferase 26 U/L (10-49); Albumin, Serum 3.9 gm/dL (3.4-4.8); Albumin/Globulin Ratio 1.3 (1.2-2.2); Alkaline Phosphatase 217 U/L (46-116); Anion Gap 11 (7-16); Aspartate Amino Transferase 49 U/L (0-34); BUN/Creatinine Ratio 15 Ratio (12-20); Bilirubin,Total 2.6 mg/dL (0.3-1.2); Blood Urea Nitrogen 32 mg/dL (9-23); Calcium 9.7 mg/dL (8.3-10.6); Calcium (Corrected) 9.8 mg/dL (8.5-10.1); Carbon Dioxide 26.1 mMol/L (20.0-31.0); Chloride 97 mMol/L (98-107); Creatinine (Component) 2.1 mg/dL (0.6-1.3); Globulin 3.0 gm/dL (2.3-3.5); Glucose 365 mg/dL (74-106); Osmolality,Calculated 290 (275-295); Potassium 4.0 mMol/L (3.4-5.1); Sodium 134 mMol/L (136-145); Total Protein 6.9 gm/dL (5.7-8.2); eGFR 26 See Note
[2025-03-04 14:12] LABS: Slide Review Platelets confirmed
== END | disposition home or self-care (01) ==
PROVIDERS: PCP Internal Medicine; Referring Provider Specialist; Visit Provider Specialist
DX: E11.9 Type 2 diabetes mellitus without complications (principal); R18.8 Other ascites
CPT/HCPCS: 36415; 80053; 85025